=== PATIENT | male | born 1935 | race Caucasian/White ===

== ENCOUNTER 2020-03-28 10:51 | Inpatient (IN) | payer MEDICARE, SELFPAY ==
[2020-03-28 11:14] VITALS: BP 122/53; PULSE 76; RESP 18; TEMP 36.6; O2SAT 95; BMI 27.8
--- NOTE | 2020-03-28 11:22 | US_ITS ---
EXAMINATION: US VENOUS ULTRASOUND WITH DOPPLER LOWER EXTREMITY, LEFT CLINICAL INFORMATION: Left lower extremity edema, swelling. Assess for DVT. COMPARISON: Bilateral leg venous ultrasound 01/13/2019. TECHNIQUE: Ultrasound of the deep veins is performed from the hip to the calf with compression sonography and color and pulse Doppler assessment. Spectral analysis with color-flow imaging is performed. FINDINGS: There is normal venous compression and respiratory variation and augmented flow. The visualized common femoral vein, superficial femoral vein, profunda femoral vein, popliteal vein, and the trifurcation region shows no evidence of deep venous thrombosis. There is no popliteal fossa cyst. IMPRESSION: No DVT demonstrated in the left lower extremity.
--- NOTE | 2020-03-28 11:22 | ED_ITS ---
HPI - Extremity Problem General Chief complaint: Extremity Injury, Lower Stated complaint: LEG PAIN Time Seen by Provider: 03/28/20 11:21 Source: patient Mode of arrival: ambulatory Limitations: no limitations History of Present Illness MD Complaint: extremity pain and extremity swelling Onset (ago): day(s) (5) Pain Consistency: constant Location: left and lower extremity Quality: aching Radiation: none Relieving factors: nothing Exacerbating factors: nothing Associated symptoms: shortness of breath and rash Related Data Allergies Allergy/AdvReac Type Severity Reaction Status Date / Time bee pollen [BEE STINGS] Allergy Severe ANAPHYLAXIS Unverified 02/23/20 14:55 doxycycline [DOXYCYCLINE] Allergy Unknown ? ALLERGY Unverified 02/23/20 14:55 PER MAINTENANCE DEPARTMENT MANAGER [place]ARDINES Allergy Mild ITCHING Uncoded 02/23/20 14:55 bee venom Allergy Unknown unspecified Uncoded 09/15/19 00:00 sardines Allergy Unknown itching Uncoded 09/15/19 00:00 Review of Systems Review of Systems: Constitutional : No Fever, No Chills ENT/Mouth : No Ear Pain, No Hoarseness, No sore throat Eyes: No Eye Pain, No Swelling, No Redness, No Foreign Body Cardiovascular : No Chest Pain, positive SOB, positive LE edema Respiratory : No Cough, No Dyspnea Gastrointestinal : No Nausea, No Vomiting, No Diarrhea, No abdominal Pain Genitourinary : No Dysuria, No Hematuria Musculoskeletal : positive joint pain, No Myalgias, No Joint Swelling Skin : No Skin lacerations, positive rash Neuro : No Weakness, No Numbness, No Loss of Consciousness, No Dizziness, No Headache Psych : No Anxiety/Panic, No Depression Heme/Lymph: no easy bruising, no Lymphadenopathy Endocrine : No Polyuria, No Polydipsia All other systems reviewed and are negative [facility] Past Medical History Medical History (Updated 03/28/20 @ 13:32 by Liz Mcmanus DO) Afib Alcoholic cardiomyopathy BPH (benign prostatic hyperplasia) COPD (chronic obstructive pulmonary disease) Diabetes Hyperlipidemia Prostate cancer PVD (peripheral vascular disease) Surgical History (Updated 03/28/20 @ 11:54 by Liz Mcmanus DO) Hx of BKA Social History Social History Alcohol intake: never Smoking Status: Never smoker Use of substances other than those prescribed or required for medical reasons: No Advance Directives: Yes Advance Directives Information Provided: Yes Advance Directives on File: No Physical Exam Vital Signs: Vital Signs: Vital Signs Temp Pulse Resp BP Pulse Ox 03/28/20 11:14 97.9 F 76 18 122/53 L 95 Body Mass Index 27.8 Appearance: Alert. Oriented X3. No acute distress. Eyes: Pupils equal, round and reactive to light. ENT: Pharynx normal. Neck: Normal inspection. Neck supple. CVS: Normal heart rate and rhythm. Pulses decreased Respiratory: No respiratory distress. Breath sounds decreased bases Abdomen: Soft and nontender. Skin: Skin warm and dry. Normal skin color. Normal skin turgor. Extremities: + LLE lower extremity edema 2+ with mild warmth and erythema. mild calf ttp Neuro: Oriented X 3. No motor deficit. No sensory deficit. Course Course Course Narrative: repeat IV morphine for pain, planned admit added on vancomycin for cellulitis MDM - Extremity (Nontraumatic) MDM Narrative Medical decision making narrative: 84 yo male with hx of CHF, HPL, DM s/p R BKA and afib on eliquis here with LLE pain and swelling - will need labs, cultures, CXR for dyspnea, US to r/o DVT, empiric antibiotics for likely cellulitus Lab Data Result diagrams: 03/28/20 11:40 03/28/20 11:40 Labs: Lab Results 03/28/20 03/28/20 03/28/20 Range/Units 11:39 11:39 11:40 WBC 6.3 (4.8-10.8) X10*3/uL RBC 2.99 L (4.60-5.80) X10*6/uL Hgb 8.3 L (14.0-18.0) g/dl Hct 27.0 L (42-52) % MCV 90.3 (80-98) fL MCH 27.8 (27.0-33.0) pg MCHC 30.7 L (31.0-36.0) g/dl RDW 14.3 (11.0-16.0) % Plt Count 181 (160-400) X10*3/uL MPV 9.9 (9.4-12.4) fL Immature Gran % (Auto) 0.3 (0.0-0.4) % Neut % (Auto) 72.9 (45-73) % Lymph % (Auto) 11.5 L (20-40) % [place] % (Auto) 10.3 (2-11) % Eos % (Auto) 4.7 H (0-4) % Baso % (Auto) 0.3 (0-2) % Lymph # (Auto) 0.7 L (1.2-4.9) X10*3/uL [place] # (Auto) 0.7 (0.1-1.2) X10*3/uL Eos # (Auto) 0.3 (0.0-0.4) X10*3/uL Baso # (Auto) 0.0 (0.0-0.2) X10*3/uL Abs Immat Gran (auto) 0.02 (0.00-0.03) X10*3/uL Absolute Neuts (auto) 4.6 (2.0-8.3) X10*3/uL Absolute Nucleated RBC 0.000 (0.0-0.012) X10*3/uL Nucleated RBC % (auto) 0.0 (0.0-0.2) /100WBC PT (10.8-13.0) SEC INR (0.9-1.1) APTT (24.1-38.0) SEC Sodium (135-145) mmol/L Potassium (3.3-5.1) mmol/l Chloride (96-108) mmol/L Carbon Dioxide (22-29) mmol/L Anion Gap (12-20) BUN (9-16) mg/dL Creatinine (0.5-1.4) mg/dL Estim Creat Clear Calc Estimated GFR Random Glucose (60-115) mg/dL Lactic Acid (0.5-2.0) mmol/L Calcium (8.4-10.2) mg/dL Magnesium 2.1 (1.6-2.6) mg/dL Total Bilirubin 0.6 (0.0-1.0) mg/dL Direct Bilirubin 0.3 (0.0-0.5) mg/dL AST 15 (5-37) U/L ALT 10 (0-40) U/L Alkaline Phosphatase 55 (39-117) U/L B-Natriuretic Peptide 90 (<100) pg/mL Total Protein 6.8 (6.5-8.0) g/dL Albumin 3.8 (3.5-5.0) g/dL 03/28/20 03/28/20 03/28/20 Range/Units 11:40 11:40 11:40 WBC (4.8-10.8) X10*3/uL RBC (4.60-5.80) X10*6/uL Hgb (14.0-18.0) g/dl Hct (42-52) % MCV (80-98) fL MCH (27.0-33.0) pg MCHC (31.0-36.0) g/dl RDW (11.0-16.0) % Plt Count (160-400) X10*3/uL MPV (9.4-12.4) fL Immature Gran % (Auto) (0.0-0.4) % Neut % (Auto) (45-73) % Lymph % (Auto) (20-40) % [place] % (Auto) (2-11) % Eos % (Auto) (0-4) % Baso % (Auto) (0-2) % Lymph # (Auto) (1.2-4.9) X10*3/uL [place] # (Auto) (0.1-1.2) X10*3/uL Eos # (Auto) (0.0-0.4) X10*3/uL Baso # (Auto) (0.0-0.2) X10*3/uL Abs Immat Gran (auto) (0.00-0.03) X10*3/uL Absolute Neuts (auto) (2.0-8.3) X10*3/uL Absolute Nucleated RBC (0.0-0.012) X10*3/uL Nucleated RBC % (auto) (0.0-0.2) /100WBC PT 23.1 H (10.8-13.0) SEC INR 1.9 H (0.9-1.1) APTT 46.6 H (24.1-38.0) SEC Sodium 140 (135-145) mmol/L Potassium 4.3 (3.3-5.1) mmol/l Chloride 101 (96-108) mmol/L Carbon Dioxide 31 H (22-29) mmol/L Anion Gap 12 (12-20) BUN 36 H (9-16) mg/dL Creatinine 1.50 H (0.5-1.4) mg/dL Estim Creat Clear Calc 41.6 Estimated GFR 45 Random Glucose 178 H (60-115) mg/dL Lactic Acid 1.3 (0.5-2.0) mmol/L Calcium 8.8 (8.4-10.2) mg/dL Magnesium (1.6-2.6) mg/dL Total Bilirubin (0.0-1.0) mg/dL Direct Bilirubin (0.0-0.5) mg/dL AST (5-37) U/L ALT (0-40) U/L Alkaline Phosphatase (39-117) U/L B-Natriuretic Peptide (<100) pg/mL Total Protein (6.5-8.0) g/dL Albumin (3.5-5.0) g/dL Discharge Plan Discharge Clinical Impression: Acute renal insufficiency Cellulitis Qualifiers: Site of cellulitis: extremity Site of cellulitis of extremity: lower extremity Laterality: left Qualified Code(s): L03.116 - Cellulitis of left lower limb Patient Disposition: Admitted As Inpatient
--- NOTE | 2020-03-28 11:22 | ECG_ITS ---
Test Reason : CP Blood Pressure : / mmHG Vent. Rate : 073 BPM Atrial Rate : 042 BPM P-R Int : 000 ms QRS Dur : 106 ms QT Int : 420 ms P-R-T Axes : 000 046 040 degrees QTc Int : 462 ms Atrial fibrillation RSR' or QR pattern in V1 suggests right ventricular conduction delay Low voltage QRS limb leads Abnormal ECG When compared with ECG of 04-JUL-2019 11:43, No significant change was found Referred By: Liz Mcmanus Electronically Signed By:ANTONIO NOYOLA MD
--- NOTE | 2020-03-28 11:23 | XR_ITS ---
EXAMINATION: XR CHEST CLINICAL INFORMATION: Dyspnea COMPARISON: January 13, [address] scan of December 23, 2018 TECHNIQUE: AP portable view of the chest was obtained. FINDINGS: There is no evidence of acute parenchymal disease, pneumothorax, or significant pleural effusion. There is noted be some interstitial scarring present bilaterally. The cardiopericardial silhouette is enlarged. No evidence of pulmonary edema. IMPRESSION: No acute disease. Cardiomegaly without pulmonary edema.
--- NOTE | 2020-03-28 11:42 | PC.NURSE ---
iv established, blood labs obtained and sent. medicated per emar. cxr completed.
[2020-03-28 11:46] LABS: MANUAL DIFF FLAG NO
[2020-03-28 11:51] LABS: Basophils Percent Auto 0.3 % (0-2); Eosinophils Absolute Auto 0.3 X10*3/uL (0.0-0.4); Eosinophils Percent Auto 4.7 % (0-4); Hemoglobin 8.3 g/dl (14.0-18.0); Imm Gran Abs Auto 0.02 X10*3/uL (0.00-0.03); Imm Gran Pct Auto 0.3 % (0.0-0.4); Lymphocytes Absolute Auto 0.7 X10*3/uL (1.2-4.9); Lymphocytes Percent Auto 11.5 % (20-40); Mean Corpuscular HGB Conc 30.7 g/dl (31.0-36.0); Mean Corpuscular Hemoglobin 27.8 pg (27.0-33.0); Mean Corpuscular Volume 90.3 fL (80-98); Mean Platelet Volume 9.9 fL (9.4-12.4); Monocytes Absolute Auto 0.7 X10*3/uL (0.1-1.2); Monocytes Percent Auto 10.3 % (2-11); Neutrophils Absolute Auto 4.6 X10*3/uL (2.0-8.3); Neutrophils Percent Auto 72.9 % (45-73); Platelet Count 181 X10*3/uL (160-400); Red Blood Count 2.99 X10*6/uL (4.60-5.80); Red Cell Distribution Width 14.3 % (11.0-16.0); White Blood Count 6.3 X10*3/uL (4.8-10.8)
[2020-03-28] MEDS: oxyCODONE HCl Immed Release 5 MG TABLET PO (11:54)
[2020-03-28 12:00] LABS: INTERNATIONAL NORM RATIO 1.9 (0.9-1.1); Prothrombin Time 23.1 SEC (10.8-13.0)
[2020-03-28 12:03] LABS: Partial Thromboplastin Time 46.6 SEC (24.1-38.0)
[2020-03-28 12:15] LABS: Lactic Acid 1.3 mmol/L (0.5-2.0)
[2020-03-28 12:17] LABS: Anion Gap 12 (12-20); Blood Urea Nitrogen 36 mg/dL (9-16); Calcium 8.8 mg/dL (8.4-10.2); Carbon Dioxide 31 mmol/L (22-29); Chloride 101 mmol/L (96-108); Creatinine Clr Calc Pharmacy 41.6; Estimated Glomerular Filt Rate 45; Glucose Random 178 mg/dL (60-115); Potassium 4.3 mmol/l (3.3-5.1); Sodium 140 mmol/L (135-145)
[2020-03-28 12:18] LABS: Alanine Aminotransferase 10 U/L (0-40); Albumin Level 3.8 g/dL (3.5-5.0); Alkaline Phosphatase 55 U/L (39-117); Aspartate Amino Transferase 15 U/L (5-37); Bilirubin Direct 0.3 mg/dL (0.0-0.5); Bilirubin Total 0.6 mg/dL (0.0-1.0); Magnesium 2.1 mg/dL (1.6-2.6); Total Protein 6.8 g/dL (6.5-8.0)
[2020-03-28 12:25] LABS: B Type Natriuretic Peptide 90 pg/mL (<100)
[2020-03-28] MEDS: Piperacillin Sodium/Tazobactam 3.375 GM in 0.9 % Sodium Chloride 50 ML IV (12:27)
[2020-03-28] MEDS: vancomycin HCL 1,000 MG in 0.9 % Sodium Chloride 250 ML 270 MG IV (13:42)
[2020-03-28] MEDS: Morphine Sulfate 4 MG/ML CARTRIDGE IVPUSH (13:42)
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
[2020-03-28 19:22] VITALS: BP 133/63; PULSE 73; RESP 18; O2SAT 96
--- NOTE | 2020-03-28 19:26 | PC.NURSE ---
CALLED FLOOR TO GIVE REPORT ON PATIENT BEING ADMITTED TO MED/SURG BED 373. PATIENT BEING ADMITTED WITH CELLULITIS
[2020-03-28 20:56] VITALS: BP 142/68; PULSE 94; RESP 19; TEMP 36.7; O2SAT 90
[2020-03-28 21:14] LABS: SARS COV2 PCR INHOUSE NEGATIVE (Negative)
[2020-03-28 21:50] LABS: Glucose, Whole Blood 135 mg/dL (60-115)
[2020-03-28 23:44] VITALS: BP 141/75; PULSE 88; RESP 20; TEMP 36.9; O2SAT 96
[2020-03-28] MEDS: Piperacillin Sodium/Tazobactam 2.25 GM in 0.9 % Sodium Chloride 50 ML IV (23:44)
[2020-03-28] MEDS: 0.9 % Sodium Chloride 1,000 ML 100 ML IVCONT (23:44)
[2020-03-28] MEDS: Ascorbic Acid 500 MG TABLET PO (23:49)
[2020-03-28] MEDS: Apixaban 5 MG TABLET PO (23:49)
[2020-03-28] MEDS: FLUoxetine HCl 20 MG CAPSULE PO (23:50)
[2020-03-28] MEDS: Gabapentin 600 MG TABLET PO (23:50)
[2020-03-28] MEDS: risperiDONE 0.25 MG TABLET PO (23:50)
[2020-03-28 23:51] VITALS: BP 141/75; PULSE 90
[2020-03-28] MEDS: Tamsulosin HCL 0.4 MG CAPSULE PO (23:51)
[2020-03-28] MEDS: amLODIPine Besylate 2.5 MG TABLET PO (23:51)
[2020-03-28] MEDS: atenoloL 25 MG TABLET PO (23:51)
[2020-03-28] MEDS: Atorvastatin Calcium 20 MG TABLET PO (23:52)
[2020-03-28] MEDS: Morphine Sulfate 2 MG/ML CARTRIDGE 1 MG IVPUSH (23:58)
[2020-03-29 03:53] VITALS: BP 136/77; PULSE 78; RESP 18; TEMP 36.8; O2SAT 99
[2020-03-29] MEDS: Piperacillin Sodium/Tazobactam 2.25 GM in 0.9 % Sodium Chloride 50 ML IV ×4 (05:21→23:56)
[2020-03-29 06:34] LABS: Hematocrit 26.9 % (42-52); Hemoglobin 8.1 g/dl (14.0-18.0); Mean Corpuscular HGB Conc 30.1 g/dl (31.0-36.0); Mean Corpuscular Hemoglobin 27.5 pg (27.0-33.0); Mean Corpuscular Volume 91.2 fL (80-98); Mean Platelet Volume 9.8 fL (9.4-12.4); Platelet Count 199 X10*3/uL (160-400); Red Blood Count 2.95 X10*6/uL (4.60-5.80); Red Cell Distribution Width 14.3 % (11.0-16.0); White Blood Count 6.4 X10*3/uL (4.8-10.8)
[2020-03-29 06:59] LABS: Anion Gap 14 (12-20); Blood Urea Nitrogen 35 mg/dL (9-16); Calcium 8.6 mg/dL (8.4-10.2); Carbon Dioxide 30 mmol/L (22-29); Chloride 104 mmol/L (96-108); Creatinine Clr Calc Pharmacy 44.6; Estimated Glomerular Filt Rate 48; Glucose Random 118 mg/dL (60-115); Potassium 5.1 mmol/l (3.3-5.1); Sodium 143 mmol/L (135-145)
[2020-03-29 07:09] VITALS: BP 136/84; PULSE 75; RESP 18; TEMP 36.9; O2SAT 97
[2020-03-29 07:26] LABS: Glucose, Whole Blood 114 mg/dL (60-115)
[2020-03-29] MEDS: amLODIPine Besylate 2.5 MG TABLET PO (09:21)
[2020-03-29] MEDS: Atorvastatin Calcium 20 MG TABLET PO (09:22)
[2020-03-29] MEDS: Apixaban 5 MG TABLET PO ×2 (09:22→20:51)
[2020-03-29] MEDS: FLUoxetine HCl 20 MG CAPSULE PO (09:22)
[2020-03-29] MEDS: Ascorbic Acid 500 MG TABLET PO ×2 (09:22→20:51)
[2020-03-29] MEDS: atenoloL 25 MG TABLET PO (09:22)
[2020-03-29 10:59] VITALS: BP 133/61; PULSE 68; RESP 18; TEMP 36.7; O2SAT 96
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
[2020-03-29 11:18] LABS: Glucose, Whole Blood 151 mg/dL (60-115)
[2020-03-29] MEDS: Insulin Lispro 100 UNIT/ML 3 ML VIAL SUBCUT (11:56)
--- NOTE | 2020-03-29 13:01 | HO.PM.IMPN ---
Subjective Subjective Date of Service: 03/29/20 Interval History: patient seen and examined at bedside patient reported pain in his leg Constitutional Constitutional: Reports weakness Respiratory Respiratory: Reports no additional respiratory complaints Gastrointestinal Gastrointestinal: Denies vomiting Neurologic Neurologic: Reports weakness Physical Exam Vital Signs: Vital Signs: Vital Signs Temp Pulse Resp BP Pulse Ox 03/29/20 10:59 98.1 F 68 18 133/61 96 03/29/20 07:09 98.4 F 75 18 136/84 97 03/29/20 03:53 98.3 F 78 18 136/77 99 03/28/20 23:51 90 141/75 H 03/28/20 23:44 98.5 F 88 20 141/75 H 96 03/28/20 20:56 98.0 F 94 19 142/68 H 90 L 03/28/20 19:22 73 18 133/63 96 Body Mass Index 27.8 Const: General: no acute distress Orientation/consciousness: patient oriented x3 Neck: Neck: Yes normal visual inspection Resp: Effort & Inspection: normal respiratory effort Cardio: Jugular venous distension: no JVD Skin: Lesions: other ( left lower extremity erythema and swelling with underlying stasis dermati) Neuro: General: patient oriented x3 Objective Data Current Medications Generic Name Dose Route Start Last Admin Trade Name Freq PRN Reason Stop Dose Admin Albuterol/Ipratropium 3 ml 03/28/20 20:59 Albuterol/Iprat 2.5/0.5mg 3 Ml Ampul.Neb INHALE RQ6H PRN Shortness of Breath/Wheezing Amlodipine Besylate 2.5 mg 03/28/20 20:59 03/29/20 09:21 Amlodipine Besylate 2.5 Mg Tablet PO 2.5 mg DAILY BREE Administration Protocol Apixaban 5 mg 03/28/20 21:00 03/29/20 09:22 Apixaban 5 Mg Tablet PO 5 mg BID BREE Administration Ascorbic Acid 500 mg 03/28/20 21:00 03/29/20 09:22 Ascorbic Acid 500 Mg Tablet PO 500 mg BID BREE Administration Atenolol 25 mg 03/28/20 20:59 03/29/20 09:22 Atenolol 25 Mg Tablet PO 25 mg DAILY BREE Administration Protocol Atorvastatin Calcium 20 mg 03/28/20 20:59 03/29/20 09:22 Atorvastatin Calcium 20 Mg Tablet PO 20 mg DAILY BREE Administration Fluoxetine HCl 20 mg 03/28/20 20:59 03/29/20 09:22 Fluoxetine Hcl 20 Mg Capsule PO 20 mg DAILY BREE Administration Gabapentin 600 mg 03/28/20 21:00 03/28/20 23:50 Gabapentin 600 Mg Tablet PO 600 mg BEDTIME BREE Administration Piperacillin Sod/Tazobactam 50 mls @ 100 mls/hr 03/29/20 06:00 03/29/20 12:35 Sod 2.25 gm/ Sodium Chloride IV Infused Q6H BREE Infusion Insulin Human Lispro 0 unit 03/28/20 21:00 03/29/20 11:56 Insulin Lispro 100 Unit/Ml 3 Ml Vial SUBCUT 2 unit QIDACHS BREE Administration Protocol Pharmacy Consult 1 each 03/28/20 16:58 Consult Rx Perform Med Rec MISCELLANE ONCE PRN Consult order Risperidone 0.25 mg 03/28/20 21:00 03/28/20 23:50 Risperidone 0.25 Mg Tablet PO 0.25 mg BEDTIME BREE Administration Sodium Chloride 3 ml 03/29/20 00:00 03/29/20 09:24 0.9 % Sodium Chloride Flush 3 Ml Syringe IVFLUSH Not Given QSHIFT BREE Tamsulosin HCl 0.4 mg 03/28/20 21:00 03/28/20 23:51 Tamsulosin Hcl 0.4 Mg Capsule PO 0.4 mg BEDTIME BREE Administration Labs CBC & Chem 7: 03/29/20 06:07 03/29/20 06:07 Assessment and Plan (1) Cellulitis: Status: Acute (2) Acute renal insufficiency: Status: Acute Assessment and Plan: 84-year-old male presented with worsening left lower extremity swelling and erythema , in the ER found to have creatinine 1.6 baseline around 1 admitted for cellulitis and acute kidney injury Cellulitis of left lower extremity with underlying stasis dermatitis received 1 dose of Vanco and Zosyn will continue IV Zosyn follow-up blood culture acute kidney injury creatinine 1.5 with baseline around 1 hold lasixs monitor kidney function Diabetes hold metformin Insulin sliding scale monitor blood glucose Chronic CHF with recovered ejection fraction appears euvolemic hold Lasix continue atenolol BPH continueFlomax Hypertension continueAmlodipine, atenolol AFib Atenolol continue Eliquis Hyperlipidemia Statin COPD Nebs as needed DVT prophylaxis Eliquis
--- NOTE | 2020-03-29 15:14 | MHC.CM.PN ---
nurse director of casework services note recoived a call back valeriano smith at [facility] at home, she confirmed that patient was reciving 37.5 hours per week, she reported sdhe daniel have the blowing engineer omn stand by for tomorrow and schedued for weekend and we will recconnect tomorrow with more finalzed plan for discharge , she reported that he has a pill boc reminder and is capable f serf administwring his pills, she aso reported that the blowing engineer are the ones who were encouraging patient to call the doctor about his foot (the pain redness and swelling ) and they called his family . she requesed if possible if the [facility] community nurse could come in and assesse him once he is home .
[2020-03-29 15:40] VITALS: BP 134/66; PULSE 75; RESP 18; TEMP 36.6; O2SAT 95
[2020-03-29 16:39] LABS: Glucose, Whole Blood 108 mg/dL (60-115)
[2020-03-29] MEDS: 0.9 % Sodium Chloride Flush 3 ML SYRINGE IVFLUSH ×2 (17:48→20:51)
[2020-03-29 19:49] VITALS: BP 154/67; PULSE 75; RESP 18; TEMP 36.2; O2SAT 97
[2020-03-29] MEDS: risperiDONE 0.25 MG TABLET PO (20:51)
[2020-03-29] MEDS: Gabapentin 600 MG TABLET PO (20:51)
[2020-03-29] MEDS: Tamsulosin HCL 0.4 MG CAPSULE PO (20:51)
[2020-03-29 20:54] LABS: Glucose, Whole Blood 136 mg/dL (60-115)
[2020-03-29 23:01] VITALS: BP 137/64; PULSE 70; RESP 18; TEMP 36.2; O2SAT 97
[2020-03-30] VITALS (8 sets, daily range): BP systolic 123–174; BP diastolic 62–81; PULSE 72–86; RESP 17–19; TEMP 36.2–36.9; O2SAT 91–95
[2020-03-30] MEDS: Morphine Sulfate 2 MG/ML CARTRIDGE 1 MG IVPUSH ×2 (00:34→09:49)
[2020-03-30] MEDS: Piperacillin Sodium/Tazobactam 2.25 GM in 0.9 % Sodium Chloride 50 ML IV ×3 (05:48→19:14)
[2020-03-30] MEDS: Apixaban 5 MG TABLET PO ×2 (09:17→20:52)
[2020-03-30] MEDS: FLUoxetine HCl 20 MG CAPSULE PO (09:17)
[2020-03-30] MEDS: Atorvastatin Calcium 20 MG TABLET PO (09:17)
[2020-03-30] MEDS: 0.9 % Sodium Chloride Flush 3 ML SYRINGE IVFLUSH ×3 (09:17→20:54)
[2020-03-30] MEDS: Ascorbic Acid 500 MG TABLET PO ×2 (09:17→20:52)
[2020-03-30] MEDS: amLODIPine Besylate 2.5 MG TABLET PO (09:18)
[2020-03-30] MEDS: atenoloL 25 MG TABLET PO (09:18)
[2020-03-30 09:57] LABS: Glucose, Whole Blood 99 mg/dL (60-115)
[2020-03-30 11:32] LABS: Glucose, Whole Blood 142 mg/dL (60-115)
[2020-03-30 11:34] LABS: Anion Gap 12 (12-20); Blood Urea Nitrogen 36 mg/dL (9-16); Calcium 8.6 mg/dL (8.4-10.2); Carbon Dioxide 31 mmol/L (22-29); Chloride 104 mmol/L (96-108); Creatinine Clr Calc Pharmacy 45.9; Estimated Glomerular Filt Rate 50; Glucose Random 174 mg/dL (60-115); Potassium 4.5 mmol/l (3.3-5.1); Sodium 142 mmol/L (135-145)
[2020-03-30] MEDS: Albuterol/Iprat 2.5/0.5MG 3 ML AMPUL.NEB INHALE (12:44)
--- NOTE | 2020-03-30 12:44 | HO.PM.IMPN ---
Subjective Subjective Date of Service: 03/30/20 Interval History: patient seen and examined at bedside patient reported pain in his leg Physical Exam Vital Signs: Vital Signs: Vital Signs Temp Pulse Resp BP Pulse Ox 03/30/20 11:27 97.3 F 78 19 144/81 H 95 03/30/20 09:49 18 03/30/20 09:18 80 123/65 03/30/20 07:46 98.0 F 86 17 143/69 H 94 03/30/20 02:50 97.3 F 77 18 130/62 92 03/29/20 23:01 97.1 F 70 18 137/64 97 03/29/20 19:49 97.1 F 75 18 154/67 H 97 03/29/20 15:40 97.8 F 75 18 134/66 95 Body Mass Index 27.8 Const: General: no acute distress Orientation/consciousness: patient oriented x3 Neck: Neck: Yes normal visual inspection Resp: Effort & Inspection: normal respiratory effort Cardio: Jugular venous distension: no JVD Skin: Lesions: other ( left lower extremity erythema and swelling with underlying stasis dermati) Neuro: General: patient oriented x3 Objective Data Current Medications Generic Name Dose Route Start Last Admin Trade Name Freq PRN Reason Stop Dose Admin Albuterol/Ipratropium 3 ml 03/28/20 20:59 Albuterol/Iprat 2.5/0.5mg 3 Ml Ampul.Neb INHALE RQ6H PRN Shortness of Breath/Wheezing Amlodipine Besylate 2.5 mg 03/28/20 20:59 03/30/20 09:18 Amlodipine Besylate 2.5 Mg Tablet PO 2.5 mg DAILY BREE Administration Protocol Apixaban 5 mg 03/28/20 21:00 03/30/20 09:17 Apixaban 5 Mg Tablet PO 5 mg BID BREE Administration Ascorbic Acid 500 mg 03/28/20 21:00 03/30/20 09:17 Ascorbic Acid 500 Mg Tablet PO 500 mg BID BREE Administration Atenolol 25 mg 03/28/20 20:59 03/30/20 09:18 Atenolol 25 Mg Tablet PO 25 mg DAILY BREE Administration Protocol Atorvastatin Calcium 20 mg 03/28/20 20:59 03/30/20 09:17 Atorvastatin Calcium 20 Mg Tablet PO 20 mg DAILY BREE Administration Fluoxetine HCl 20 mg 03/28/20 20:59 03/30/20 09:17 Fluoxetine Hcl 20 Mg Capsule PO 20 mg DAILY BREE Administration Gabapentin 600 mg 03/28/20 21:00 03/29/20 20:51 Gabapentin 600 Mg Tablet PO 600 mg BEDTIME BREE Administration Piperacillin Sod/Tazobactam 50 mls @ 100 mls/hr 03/29/20 06:00 03/30/20 12:10 Sod 2.25 gm/ Sodium Chloride IV 100 mls/hr Q6H BREE Administration Insulin Human Lispro 0 unit 03/28/20 21:00 03/30/20 12:04 Insulin Lispro 100 Unit/Ml 3 Ml Vial SUBCUT Not Given QIDACHS [facility] Protocol Pharmacy Consult 1 each 03/28/20 16:58 Consult Rx Perform Med Rec MISCELLANE ONCE PRN Consult order Risperidone 0.25 mg 03/28/20 21:00 03/29/20 20:51 Risperidone 0.25 Mg Tablet PO 0.25 mg BEDTIME BREE Administration Sodium Chloride 3 ml 03/29/20 00:00 03/30/20 09:17 0.9 % Sodium Chloride Flush 3 Ml Syringe IVFLUSH 3 ml QSHIFT BREE Administration Tamsulosin HCl 0.4 mg 03/28/20 21:00 03/29/20 20:51 Tamsulosin Hcl 0.4 Mg Capsule PO 0.4 mg BEDTIME BREE Administration Labs CBC & Chem 7: 03/29/20 06:07 03/30/20 10:13 Microbiology Microbiology Results: Microbiology 03/28/20 12:17 Blood - Venous Blood Culture - Preliminary No growth after 24 hours. 03/28/20 11:40 Blood - Venous Blood Culture - Preliminary No growth after 24 hours. Assessment and Plan (1) Cellulitis: Status: Acute (2) Acute renal insufficiency: Status: Acute Assessment and Plan: 84-year-old male presented with worsening left lower extremity swelling and erythema , in the ER found to have creatinine 1.6 baseline around 1 admitted for cellulitis and acute kidney injury Cellulitis of left lower extremity with underlying stasis dermatitis Still significant leg swelling and erythema little improved will continue IV Zosyn follow-up blood culture acute kidney injury improving creatinine trending down creatinine 1.5 with baseline around 1 hold lasixs monitor kidney function Diabetes hold metformin Insulin sliding scale monitor blood glucose Chronic CHF with recovered ejection fraction appears euvolemic hold Lasix continue atenolol BPH continueFlomax Hypertension continueAmlodipine, atenolol AFib Atenolol continue Eliquis Hyperlipidemia Statin COPD Nebs as needed DVT prophylaxis Eliquis
[2020-03-30 16:56] LABS: Glucose, Whole Blood 154 mg/dL (60-115)
[2020-03-30] MEDS: oxyCODONE HCl Immed Release 5 MG TABLET PO (17:00)
[2020-03-30] MEDS: risperiDONE 0.25 MG TABLET PO (20:52)
[2020-03-30] MEDS: Tamsulosin HCL 0.4 MG CAPSULE PO (20:52)
[2020-03-30] MEDS: Gabapentin 600 MG TABLET PO (20:52)
[2020-03-30 20:59] LABS: Glucose, Whole Blood 126 mg/dL (60-115)
[2020-03-31] MEDS: Piperacillin Sodium/Tazobactam 2.25 GM in 0.9 % Sodium Chloride 50 ML IV ×3 (00:02→12:48)
[2020-03-31 04:00] VITALS: BP 157/89; PULSE 84; RESP 20; TEMP 36; O2SAT 93
[2020-03-31] MEDS: oxyCODONE HCl Immed Release 5 MG TABLET PO ×2 (05:28→16:12)
[2020-03-31 07:10] VITALS: BP 146/70; PULSE 87; RESP 19; TEMP 36.6; O2SAT 91
[2020-03-31] MEDS: FLUoxetine HCl 20 MG CAPSULE PO (09:16)
[2020-03-31] MEDS: Atorvastatin Calcium 20 MG TABLET PO (09:16)
[2020-03-31] MEDS: amLODIPine Besylate 2.5 MG TABLET PO (09:16)
[2020-03-31] MEDS: Ascorbic Acid 500 MG TABLET PO (09:16)
[2020-03-31] MEDS: Apixaban 5 MG TABLET PO (09:16)
[2020-03-31] MEDS: atenoloL 25 MG TABLET PO (09:16)
[2020-03-31] MEDS: 0.9 % Sodium Chloride Flush 3 ML SYRINGE IVFLUSH ×2 (09:16→16:15)
[2020-03-31 11:34] LABS: Glucose, Whole Blood 122 mg/dL (60-115)
[2020-03-31 12:00] VITALS: BP 160/89; PULSE 82; RESP 18; TEMP 36.3; O2SAT 93
[2020-03-31 12:28] LABS: Glucose, Whole Blood 143 mg/dL (60-115)
[2020-03-31] MEDS: Furosemide 40 MG TABLET PO (12:47)
--- NOTE | 2020-03-31 12:54 | MHC.CM.PN ---
NURSE DOCK OPERATIONS SUPERVISOR NOTE PATIENT WILL BE DISCHARGED HOME TODAY , TRANSPORTED BY HIS FAMILY DAUGHTER TONO. 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
--- NOTE | 2020-03-31 14:11 | W.MHC.F2F ---
Service Date Service Date: 03/31/20 Reasons for Services Reason for shelter: medication management Reason for physical therapy: home safety and mobility Reason for occupational therapy: home safety and mobility and therapeutic exercises overseeing care: Leif Tolbert MD Homebound: Leaving the home is medically contraindicated at this time without the asist of a device and/or another person due th the listed conditions above and below. Homebound supporting statement: status post BKA , shortness of breath CHF COPD Certification: Based on the above findings, I certify that this patient is confined to the home and needs intermittent shelter care, physical therapy and/or speech therapy, or continues to need occupational therapy. The patient is under my care, and I have initiated the establishment of the plan of care. The patient will be followed by a physician who will periodically review the plan of care.
--- NOTE | 2020-03-31 14:12 | P.DS_ITS ---
DS: Providers Provider Date of admission: 03/28/20 16:55 Primary care physician: Alexa Barajas NP DS: Diagnosis Discharge Diagnosis (1) Cellulitis: Status: Acute (2) Acute renal insufficiency: Status: Acute DS: Summary Hospital Course Hospital Course: 84-year-old male admitted with cellulitis left lower extremity and acute kidney injury for cellulitis of left lower extremity patient was started on Zosyn, cultures were sent and remain negative, erythema and swelling improved slowly, patient was switched to p.o. Augmentin on discharge for acute kidney injury creatinine was 1.5 with baseline around 1, Lasix were held, creatinine trended down, Ranoldo I resolved, Lasix were resumed , Lasix dose was decreased from 80 mg to 60 mg daily patient was also found to be hypoxic likely secondary to CHF and COPD, patient was evaluated for home oxygen evaluation. patient qualified for 2 L of oxygen at rest, patient was discharged home on oxygen with visiting nurse and Lasix dose was decreased from 80 mg to 60 mg daily Time Spent with Patient Time attestation: Total time spent providing and/or coordinating discharge services: Physical Exam Vital Signs: Vital Signs: Vital Signs Temp Pulse Resp BP Pulse Ox 03/31/20 12:00 97.4 F 82 18 160/89 H 93 03/31/20 07:10 97.8 F 87 19 146/70 H 91 L 03/31/20 04:00 96.8 F 84 20 157/89 H 93 03/30/20 23:00 98.4 F 78 18 153/68 H 93 03/30/20 20:00 97.6 F 82 18 174/80 H 91 L 03/30/20 15:17 97.1 F 72 18 156/74 H 95 Body Mass Index 27.8 DS: Data Data Completed and Pending Labs on day of discharge: Labs from last 24 hours 03/31/20 03/31/20 03/30/20 12:00 07:22 20:42 POC Glucose 143 H 122 H 126 H 03/30/20 16:52 POC Glucose 154 H Preliminary micro results at discharge 03/28/20 12:17 Blood Culture - Preliminary Blood - Venous No growth after 48 hours. 03/28/20 11:40 Blood Culture - Preliminary Blood - Venous No growth after 48 hours. Discharge Plan Discharge Anticipated Discharge Date/Time: 03/31/20 11:54 Patient Disposition: Home Health Service Referrals: [facility] nurse [Other] ([facility] revenue cycle consultant nurse [phone] then press 6 ask for the revenue cycle consultant nurse they will be out to see you on thursdayapr 01 [facility] RESUMPTION OF YOUR EMPLOYEE COMMUNICATIONS COORDINATOR /YOUR TRUCKING MANAGER WILL BE AT YOUR HOUSE TONIGHT AROUND 6PM) Alexa Barajas KNOT BUMPER [Primary Care Provider] - Discharge Medications: New amoxicillin-pot clavulanate [Augmentin] 500-125 mg tablet 1 tab PO BID Qty: 10 RF: 0 Lac-Hydrin Five 5 % lotion 1 applic topical DAILY Qty: 226 RF: 0 Continued metformin 500 mg tablet 500 mg PO DAILY@1700 RF: 0 gabapentin 600 mg tablet 600 mg PO BEDTIME RF: 0 atorvastatin 20 mg tablet 20 mg PO QAM RF: 0 atenolol 25 mg tablet 25 mg PO QAM RF: 0 risperidone 0.25 mg tablet 0.25 mg PO BEDTIME RF: 0 amlodipine 2.5 mg tablet 2.5 mg PO QAM RF: 0 potassium chloride 20 mEq tablet,ER particles/crystals 20 meq PO BEDTIME RF: 0 ascorbic acid (vitamin C) [Vitamin C] 500 mg tablet 500 mg PO BID RF: 0 tamsulosin 0.4 mg capsule 0.4 mg PO BEDTIME RF: 0 ferrous sulfate 325 mg (65 mg iron) tablet 325 mg PO BID RF: 0 gabapentin 300 mg capsule 300 mg PO BID@0800,1400 RF: 0 albuterol sulfate 90 mcg/actuation HFA aerosol inhaler 2 puff PO Q4-6H PRN (Reason: Shortness Of Breath) RF: 0 fluoxetine 20 mg capsule 20 mg PO QAM RF: 0 cholecalciferol (vitamin D3) 25 mcg (1,000 unit) tablet 25 mcg PO QAM RF: 0 melatonin 5 mg tablet 5 mg PO BEDTIME RF: 0 Eliquis 5 mg tablet 5 mg PO BID RF: 0 Changed furosemide 40 mg tablet 60 mg PO QAM Qty: 0 RF: 0 Discharge Orders: Discharge Order (Routine); Ordered 03/31/20 Ordered By: Leif Tolbert Diet: low salt diet Activity on Discharge: As tolerated Visit Report Forms: Patient Portal Discharge page Care Plan Goals: see discharge instructions Health Concerns: see discharge instructions Plan of Treatment: see discharge instructions
[2020-03-31 14:38] VITALS: PULSE 92; PULSE 93; PULSE 94; O2SAT 88; O2SAT 91
--- NOTE | 2020-03-31 15:26 | MHC.CM.PN ---
nurse caretaker grounds note spoke with staff nurs3 , patient has home 2 test by respiratory theaerpist and qualifies for home xygen . i spoke with deborah curtis thearpist and she reporteed that she has sent in all necessary paperwrok for home ooooxygen cntinously, and is awaiting cLL BACK FROM [facility]. I INFORMED THE NURSE OF THIS AND THAT PATIENT WILL NOW NEED AMBULANCE BLS HOME WITH NEW OXYGERN NEEDS , VIA AL SCRIPT SENT REQUEST TO [facility] WITH [facility] BOOK AND HOLD FOR TODAY . I INFORMED THE STAFF NURSE IF WE CAN NOT GET [facility] TOP DELIVER THE HME XYGEN TODAY [PATIENT STEPHANY NEED TO STAY UNTIL TMPORROW ALSO CALLED HIS DAUGHTER JAVIER TO INFOMR HER OF THIS WELL THE POTASH FLAKER CCA NURSE
[2020-03-31 15:31] VITALS: BP 182/92; PULSE 85; RESP 18; TEMP 36.6; O2SAT 93
[2020-03-31 16:45] LABS: Glucose, Whole Blood 146 mg/dL (60-115)
== END 2020-03-31 17:50 | disposition home health service (06) | DRG 603 ==
LOC: HO.ED 16:25 → HO.S3 17:36
PROVIDERS: Admitting Provider Internal Medicine; Emergency Provider Emergency Medicine; PCP Nurse Practitioner Family; Visit Provider Internal Medicine
DX: L03.116 Cellulitis of left lower limb (principal); N17.9 Acute kidney failure, unspecified; I50.22 Chronic systolic (congestive) heart failure; I11.0 Hypertensive heart disease with heart failure; N40.0 Benign prostatic hyperplasia without lower urinary tract symptoms; Z89.511 Acquired absence of right leg below knee; E11.9 Type 2 diabetes mellitus without complications; J44.9 Chronic obstructive pulmonary disease, unspecified; R09.02 Hypoxemia; E78.5 Hyperlipidemia, unspecified; Z20.828 Contact with and (suspected) exposure to other viral communicable diseases; Z87.891 Personal history of nicotine dependence; Z79.01 Long term (current) use of anticoagulants; Z79.84 Long term (current) use of oral hypoglycemic drugs; Z79.899 Other long term (current) drug therapy
CPT/HCPCS: 36415; 71045; 80048; 80076; 82947; 83605; 83735; 83880; 85025; 85027; 85610; 85730; 87040; 87635; 93005; 93971; 94640; 96365; 96367; 96375; 99284; 99285; J2270

== ENCOUNTER → 2020-04-03 13:04 | Outpatient (BNVA) | payer MEDICARE, SELFPAY | PROVIDERS: PCP Nurse Practitioner Family; Referring Provider Nurse Practitioner Family; Visit Provider Surgery Vascular Surgery | DX: I73.9 Peripheral vascular disease, unspecified (principal); L03.116 Cellulitis of left lower limb; Z89.511 Acquired absence of right leg below knee | CPT/HCPCS: 99213 ==

== ENCOUNTER 2020-04-10 14:55 | Outpatient (REF) | payer MEDICARE, SELFPAY ==
--- NOTE | 2020-04-10 15:05 | US_ITS ---
EXAMINATION: NONINVASIVE ASSESSMENT OF THE ARTERIES OF THE LEFT LOWER EXTREMITIES WITH PVR EXAM AND BILATERAL LOWER EXTREMITY DUPLEX CLINICAL INFORMATION: Peripheral vascular disease TECHNIQUE: Ankle pulse volume recordings, ankle pressure measurements and ankle brachial indices were obtained of the lower extremity arterial system bilaterally in addition to duplex Doppler techniques with wave form analysis and measurement of velocities in the common femoral, profunda femoral, superficial femoral, popliteal and tibial arteries. The study was performed only at rest. COMPARISON: Previous exams most recent February 2019 FINDINGS: a) AT REST: LEFT LE. The left ankle-brachial index is: 0.55 2. Left ankle pressure: Not performed 3. Left ankle PVR waveform: Not performed 4. Left direct duplex Doppler findings: There is evidence of diffuse atherosclerotic disease with vessel wall calcification. The common femoral artery appears patent. There is a stenosis at the origin of the profunda. There is diffuse narrowing of the SFA with segmental stenoses. The popliteal and posterior tibial arteries are difficult to visualize but appear narrowed. * Common femoral artery: 147 cm/s, Diastolic flow reversal: Yes * Superficial femoral artery (proximal, mid, distal): 38, 21 and 80 cm/s, Diastolic flow reversal: No * Popliteal artery: 51 cm/s, Diastolic flow reversal: No * Posterior tibial artery: 43 cm/s, Diastolic flow reversal: No Profunda femoris artery: 220 cm/s. Diastolic flow reversal: No JULIO Reference: * >0.97-1.25 = normal - no significant arterial disease * 0.75-0.96 = mild peripheral arterial disease * 0.5-0.74 = moderate peripheral arterial disease * <0.50 = severe peripheral arterial disease US/US arterial duplex LE IMPRESSION: The left JULIO is 0.55 suggestive of moderate obstructive peripheral atherosclerotic disease. This is decreased from 0.85 on most recent exam February 2019. Stenosis at the origin of the profunda and increased peak systolic velocity. Diffuse SFA disease with decreased peak systolic velocities. The posterior tibial and peroneal arteries are difficult to visualize on grayscale imaging but demonstrate abnormal waveforms.
== END 2020-04-10 14:56 | disposition home or self-care (01) ==
LOC: HO.US 14:55
PROVIDERS: Visit Provider Surgery Vascular Surgery
DX: I73.9 Peripheral vascular disease, unspecified (principal)
CPT/HCPCS: 93923; 93926

== ENCOUNTER → 2020-04-12 09:36 | Outpatient (BNVA) | payer MEDICARE, SELFPAY | PROVIDERS: PCP Nurse Practitioner Family; Visit Provider Surgery Vascular Surgery | DX: I73.9 Peripheral vascular disease, unspecified (principal); L03.116 Cellulitis of left lower limb | CPT/HCPCS: 99212 ==

== ENCOUNTER 2020-04-24 10:03 | Emergency (ER) | payer MEDICARE, SELFPAY ==
[2020-04-24 10:29] VITALS: BP 158/79; PULSE 60; RESP 18; TEMP 36.4; O2SAT 96; BMI 25.8
--- NOTE | 2020-04-24 10:41 | US_ITS ---
EXAMINATION: US VENOUS ULTRASOUND WITH DOPPLER LOWER EXTREMITY, LEFT CLINICAL INFORMATION: Swelling and redness COMPARISON: 03/28/2020 TECHNIQUE: Ultrasound of the deep veins is performed from the hip to the calf with compression sonography and color and pulse Doppler assessment. Spectral analysis with color-flow imaging is performed. FINDINGS: There is normal venous compression and respiratory variation and augmented flow. The visualized common femoral vein, superficial femoral vein, profunda femoral vein, popliteal vein, and the trifurcation region shows no evidence of deep venous thrombosis. There is no significant popliteal fossa cyst. If the patient's symptoms persist, followup ultrasound in 5 days 7 days might be of value to exclude proximal propagation from a non-visualized calf vein. US/US venous duplex LE LT IMPRESSION: No DVT demonstrated in the left lower extremity.
--- NOTE | 2020-04-24 11:05 | PC.NURSE ---
currently getting bedside ultrasound
[2020-04-24 11:55] LABS: MANUAL DIFF FLAG NO
[2020-04-24 12:00] VITALS: BP 163/79; PULSE 62; RESP 18; TEMP 36.8; O2SAT 96
[2020-04-24 12:00] LABS: Basophils Percent Auto 0.6 % (0-2); Eosinophils Absolute Auto 0.4 X10*3/uL (0.0-0.4); Eosinophils Percent Auto 7.8 % (0-4); Hemoglobin 10.5 g/dl (14.0-18.0); Imm Gran Abs Auto 0.02 X10*3/uL (0.00-0.03); Imm Gran Pct Auto 0.4 % (0.0-0.4); Lymphocytes Absolute Auto 0.8 X10*3/uL (1.2-4.9); Lymphocytes Percent Auto 16.4 % (20-40); Mean Corpuscular Hemoglobin 26.9 pg (27.0-33.0); Mean Corpuscular Volume 89.7 fL (80-98); Mean Platelet Volume 10.1 fL (9.4-12.4); Monocytes Absolute Auto 0.6 X10*3/uL (0.1-1.2); Monocytes Percent Auto 11.6 % (2-11); Neutrophils Absolute Auto 3.2 X10*3/uL (2.0-8.3); Neutrophils Percent Auto 63.2 % (45-73); Platelet Count 199 X10*3/uL (160-400); Red Cell Distribution Width 16.1 % (11.0-16.0)
[2020-04-24 12:18] LABS: Lactic Acid 0.7 mmol/L (0.5-2.0)
[2020-04-24 12:21] LABS: Glucose Urine UA NEG (NEG); Leukocyte Esterase Urine NEG (NEG); Nitrite Urine NEG (NEG); PH 6.5 (5.0-8.0); Specific Gravity - Urine 1.015 (1.005-1.025); Urine Blood NEG (NEG); Urine Ketones NEG (NEG); Urine Protein NEG (NEG-TRACE)
[2020-04-24 12:25] LABS: Alanine Aminotransferase 18 U/L (0-40); Albumin Level 4.2 g/dL (3.5-5.0); Alkaline Phosphatase 67 U/L (39-117); Anion Gap 11 (12-20); Aspartate Amino Transferase 26 U/L (5-37); Bilirubin Total 0.9 mg/dL (0.0-1.0); Blood Urea Nitrogen 18 mg/dL (9-16); Calcium 9.3 mg/dL (8.4-10.2); Carbon Dioxide 33 mmol/L (22-29); Chloride 99 mmol/L (96-108); Estimated Glomerular Filt Rate > 60; Glucose Random 120 mg/dL (60-115); Potassium 4.6 mmol/l (3.3-5.1); Sodium 138 mmol/L (135-145)
[2020-04-24 12:28] LABS: Appearance Urine CLEAR; Color Urine YELLOW
--- NOTE | 2020-04-24 12:54 | ED_ITS ---
HPI - General Adult General Chief complaint: Skin/Abscess/Foreign Body <Harmeet Ascencio NP - Last Filed: 04/25/20 17:32> Stated complaint: LEG INFECTION <Harmeet Ascencio NP - Last Filed: 04/25/20 17:32> Time Seen by Provider: 04/24/20 10:41 <Harmeet Ascencio NP - Last Filed: 04/25/20 17:32> Source: patient <Harmeet Ascencio NP - Last Filed: 04/25/20 17:32> Mode of arrival: ambulatory <Harmeet Ascencio NP - Last Filed: 04/25/20 17:32> Limitations: no limitations <Harmeet Ascencio NP - Last Filed: 04/25/20 17:32> History of Present Illness HPI narrative: this is a pleasant primarily Greek-speaking 84-year-old male with the below noted past medical history presenting via triage in his wheelchair with complaint of left lower extremity redness for which she was treated for cellulitis through his primary care doctor with Keflex and Bactrim he just finished a 7 day course however his GAS DISPATCHER told him that I a.m. look any better to come to the emergency room. States he feels good and to him it appears better he is not sure why they told him come but he came anyways. He denies any fever or chills. No pain or discomfort. Does have some slight swelling in the left lower extremity which according to him is better than his baseline. He is right below-knee amputee. <Harmeet Ascencio NP - Last Filed: 04/25/20 17:32> Onset (ago): day(s) <Harmeet Ascencio NP - Last Filed: 04/25/20 17:32> Location: left <Harmeet Ascencio NP - Last Filed: 04/25/20 17:32> Severity: mild <Harmeet Ascencio NP - Last Filed: 04/25/20 17:32> Associated symptoms: denies other symptoms <Harmeet Ascencio NP - Last Filed: 04/25/20 17:32> Treatments prior to arrival: none <Harmeet Ascencio NP - Last Filed: 04/25/20 17:32> Related Data Home medications: Home Medications Medication Instructions Recorded Confirmed Eliquis 5 mg PO BID 03/28/20 03/28/20 albuterol sulfate 2 puff PO Q4-6H PRN 03/28/20 03/28/20 amlodipine 2.5 mg PO QAM 03/28/20 03/28/20 ascorbic acid (vitamin C) [Vitamin 500 mg PO BID 03/28/20 03/28/20 C] atenolol 25 mg PO QAM 03/28/20 03/28/20 atorvastatin 20 mg PO QAM 03/28/20 03/28/20 cholecalciferol (vitamin D3) 25 mcg PO QAM 03/28/20 03/28/20 ferrous sulfate 325 mg PO BID 03/28/20 03/28/20 fluoxetine 20 mg PO QAM 03/28/20 03/28/20 gabapentin 300 mg PO BID@0800,1400 03/28/20 03/28/20 gabapentin 600 mg PO BEDTIME 03/28/20 03/28/20 melatonin 5 mg PO BEDTIME 03/28/20 03/28/20 metformin 500 mg PO DAILY@1700 03/28/20 03/28/20 potassium chloride 20 meq PO BEDTIME 03/28/20 03/28/20 risperidone 0.25 mg PO BEDTIME 03/28/20 03/28/20 tamsulosin 0.4 mg PO BEDTIME 03/28/20 03/28/20 Previous Rx's Medication Instructions Recorded ammonium lactate [Lac-Hydrin Five] 1 applic TOPICAL DAILY #226 g 03/31/20 amoxicillin-pot clavulanate 1 tab PO BID #10 tab 03/31/20 [Augmentin] furosemide 60 mg PO QAM #0 tab 03/31/20 doxycycline monohydrate 100 mg PO BID 10 Days #20 cap 04/24/20 <Harmeet Ascencio NP - Last Filed: 04/25/20 17:32> Allergies/adverse reactions: Allergies Allergy/AdvReac Type Severity Reaction Status Date / Time bee pollen [BEE STINGS] Allergy Severe ANAPHYLAXIS Verified 04/12/20 09:48 doxycycline [DOXYCYCLINE] Allergy Unknown ? ALLERGY Verified 04/12/20 09:48 PER GAS DISPATCHER SARDINES Allergy Mild ITCHING Uncoded 03/28/20 19:48 bee venom Allergy Unknown unspecified Uncoded 03/28/20 19:48 sardines Allergy Unknown itching Uncoded 03/28/20 19:48 <Harmeet Ascencio NP - Last Filed: 04/25/20 17:32> Review of Systems Review of Systems: Constitutional: No Weight loss, No Fever, No Chills, No Night Sweats, No Fatigue, No Malaise ENT/Mouth: No Hearing loss, No Ear Pain, No Nasal Congestion, No Sinus Pain, No Hoarseness, No sore throat, No Rhinorrhea, No Swallowing Difficulty Eyes: No Eye Pain, No Swelling, No Redness, No Foreign Body, No Discharge, No Vision Changes Cardiovascular: No Chest Pain, No SOB, No Dyspnea on Exertion Respiratory: No Cough, No Sputum, No Wheezing, No Smoke Exposure, No Dyspnea Gastrointestinal: No Nausea, No Vomiting, No Diarrhea, No Constipation, No abdominal Pain, No Hematochezia, No Melena Genitourinary: no irregular bleeding, No Dysuria, No Urinary Frequency, No Hematuria Musculoskeletal: No joint pain, No Myalgias, No Joint Swelling Skin: No Skin Lesions, No rash, as noted Neuro: No Weakness, No Numbness, No Paresthesias, No Loss of Consciousness, No Dizziness, No Headache Psych: No Social Issues Heme/Lymph: No Bruising, No Bleeding,No Lymphadenopathy Endocrine: No Polyuria, No Polydipsia, No Temperature Intolerance <Harmeet Ascencio NP - Last Filed: 04/25/20 17:32> [facility] Past Medical History Attestation statement: The following information was validated with the patient. <Harmeet Ascencio NP - Last Filed: 04/25/20 17:32> Source: unable to obtain <Harmeet Ascencio NP - Last Filed: 04/25/20 17:32> Medical History: Medical History Afib Alcoholic cardiomyopathy BPH (benign prostatic hyperplasia) COPD (chronic obstructive pulmonary disease) Diabetes Hyperlipidemia Prostate cancer PVD (peripheral vascular disease) <Harmeet Ascencio NP - Last Filed: 04/25/20 17:32> Surgical History: Surgical History Hx of BKA <Harmeet Ascencio NP - Last Filed: 04/25/20 17:32> Family History Family History: Family History Mother No problems noted. Father No problems noted. Son No problems noted. Son No problems noted. Son No problems noted. Son No problems noted. Daughter No problems noted. Daughter No problems noted. Daughter No problems noted. <Harmeet Ascencio NP - Last Filed: 04/25/20 17:32> Social History Social History: Social History Housing: Apartment Alcohol intake: former Smoking Status: Former smoker Advance Directives: Yes Advance Directives on File: Yes Advance Directives Date on File: 03/28/20 service: No Current occupational status: disabled <Harmeet Ascencio NP - Last Filed: 04/25/20 17:32> Physical Exam Vital Signs: Vital Signs: Last Vital Signs Temp 98.2 F 04/24/20 12:00 Pulse 62 04/24/20 12:00 Resp 18 04/24/20 12:00 BP 163/79 H 04/24/20 12:00 Pulse Ox 96 04/24/20 12:00 Body Mass Index 25.8 Reviewed <Harmeet Ascencio NP - Last Filed: 04/25/20 17:32> Vital Signs: Last Vital Signs Temp 98.2 F 04/24/20 12:00 Pulse 62 04/24/20 12:00 Resp 18 04/24/20 12:00 BP 163/79 H 04/24/20 12:00 Pulse Ox 96 04/24/20 12:00 Body Mass Index 25.8 <Lee Uriostegui MD - Last Filed: 04/30/20 07:28> Const: General: cooperative and healthy appearing; No acute distress or intoxicated appearing <Harmeet Ascencio NP - Last Filed: 04/25/20 17:32> Nutritional Appearance: average body habitus <Harmeet Ascencio NP - Last Filed: 04/25/20 17:32> Orientation/consciousness: patient oriented x3 <Harmeet Ascencio NP - Last Filed: 04/25/20 17:32> HENMT: Head: Yes normal to inspection <Harmeet Ascencio NP - Last Filed: 04/25/20 17:32> Ears: hearing grossly normal bilaterally <Harmeet Ascencio NP - Last Filed: 04/25/20 17:32> Eyes: General: appearance normal, both eyes and all related structures <[facility] Ascencio [facility] Last Filed: 04/25/20 17:32> Visual Ibanez: normal visual ibanez by confrontation [facility] Last Filed: 04/25/20 17:32> Neck: Neck: Yes normal visual inspection and No tender <[facility] Ascencio [facility] Last Filed: 04/25/20 17:32> Thyroid: Thyroid normal [facility] - Last Filed: 04/25/20 17:32> Chest: Chest palpation & inspection: normal inspection of the chest <[facility] Last Filed: 04/25/20 17:32> Resp: Effort & Inspection: normal respiratory effort [facility] Last Filed: 04/25/20 17:32> Auscultation: clear to auscultation bilaterally <[facility] Last Filed: 04/25/20 17:32> Cardio: Jugular venous distension: no JVD [facility] - Last Filed: 04/25/20 17:32> Rate: regular rate <[facility] - Last Filed: 04/25/20 17:32> GI: Inspection: Yes normal to inspection [facility] Last Filed: 04/25/20 17:32> Percussion: Yes normal to percussion <[facility] - Last Filed: 04/25/20 17:32> Auscultation: normal bowel sounds <[facility] Last Filed: 04/25/20 17:32> : General: Yes no CVA tenderness <[facility] Last Filed: 04/25/20 17:32> Back/Spine/Pelvis: Back: no CVA tenderness <[facility] - Last Filed: 04/25/20 17:32> Skin: General skin exam: no rashes or lesions noted <[facility] Last Filed: 04/25/20 17:32> Neuro: General: patient oriented x3 <[facility] Last Filed: 04/25/20 17:32> Extrem: Other: <Harmeet Ascencio NP - Last Filed: 04/25/20 17:32> Course Course Course Narrative: I have reviewed the chart <Lee Uriostegui MD - Last Filed: 04/30/20 07:28> Medical Decision Making MDM Narrative Medical decision making narrative: 84-year-old comorbid patient with above history presenting left lower extremity status post trial of oral antibiotics essentially failed oral antibiotics though with stable labs given his feel antibiotics recommendation for admission for IV antibiotics. Patient very resistant to this I did speak to his GAS DISPATCHER states if can convince patient he will not stay. He is requesting a ntibiotics for home and will follow-up with his primary care doctor. At this point again recommendation for inpatient level care he will sign out against medical advice. Labs otherwise stable ultrasound without evidence of DVT. <Harmeet Ascencio NP - Last Filed: 04/25/20 17:32> Lab Data Result diagrams: : 04/24/20 11:47 04/24/20 11:47 <Harmeet Ascencio NP - Last Filed: 04/25/20 17:32> Labs: Lab Results 04/24/20 04/24/20 04/24/20 Range/Units 11:47 11:47 11:48 WBC 5.0 (4.8-10.8) X10*3/uL RBC 3.90 L D (4.60-5.80) X10*6/uL Hgb 10.5 L D (14.0-18.0) g/dl Hct 35.0 L D (42-52) % MCV 89.7 (80-98) fL MCH 26.9 L (27.0-33.0) pg MCHC 30.0 L (31.0-36.0) g/dl RDW 16.1 H (11.0-16.0) % Plt Count 199 (160-400) X10*3/uL MPV 10.1 (9.4-12.4) fL Immature Gran % (Auto) 0.4 (0.0-0.4) % Neut % (Auto) 63.2 (45-73) % Lymph % (Auto) 16.4 L (20-40) % Preston % (Auto) 11.6 H (2-11) % Eos % (Auto) 7.8 H (0-4) % Baso % (Auto) 0.6 (0-2) % Lymph # (Auto) 0.8 L (1.2-4.9) X10*3/uL Preston # (Auto) 0.6 (0.1-1.2) X10*3/uL Eos # (Auto) 0.4 (0.0-0.4) X10*3/uL Baso # (Auto) 0.0 (0.0-0.2) X10*3/uL Abs Immat Gran (auto) 0.02 (0.00-0.03) X10*3/uL Absolute Neuts (auto) 3.2 (2.0-8.3) X10*3/uL Absolute Nucleated RBC 0.000 (0.0-0.012) X10*3/uL Nucleated RBC % (auto) 0.0 (0.0-0.2) /100WBC Sodium 138 (135-145) mmol/L Potassium 4.6 (3.3-5.1) mmol/l Chloride 99 (96-108) mmol/L Carbon Dioxide 33 H (22-29) mmol/L Anion Gap 11 L (12-20) BUN 18 H (9-16) mg/dL Creatinine 1.04 (0.5-1.4) mg/dL Estim Creat Clear Calc 59.0 Estimated GFR > 60 Random Glucose 120 H (60-115) mg/dL Lactic Acid 0.7 (0.5-2.0) mmol/L Calcium 9.3 D (8.4-10.2) mg/dL Total Bilirubin 0.9 (0.0-1.0) mg/dL AST 26 D (5-37) U/L ALT 18 (0-40) U/L Alkaline Phosphatase 67 D (39-117) U/L Total Protein 8.0 (6.5-8.0) g/dL Albumin 4.2 (3.5-5.0) g/dL Urine Color Urine Appearance Urine pH (5.0-8.0) Ur Specific [place] (1.005-1.025) Urine Protein (NEG-TRACE) MG/DL Urine Glucose (UA) (NEG) MG/DL Urine Ketones (NEG) MG/DL Urine Blood (NEG) Urine Nitrite (NEG) Ur Leukocyte Esterase (NEG) Urine RBC (0) /HPF Urine WBC (0-4) /HPF Ur Squamous Epith Cells /LPF Urine Bacteria /LPF 04/24/20 Range/Units 11:48 WBC (4.8-10.8) X10*3/uL RBC (4.60-5.80) X10*6/uL Hgb (14.0-18.0) g/dl Hct (42-52) % MCV (80-98) fL MCH (27.0-33.0) pg MCHC (31.0-36.0) g/dl RDW (11.0-16.0) % Plt Count (160-400) X10*3/uL MPV (9.4-12.4) fL Immature Gran % (Auto) (0.0-0.4) % Neut % (Auto) (45-73) % Lymph % (Auto) (20-40) % Preston % (Auto) (2-11) % Eos % (Auto) (0-4) % Baso % (Auto) (0-2) % Lymph # (Auto) (1.2-4.9) X10*3/uL Preston # (Auto) (0.1-1.2) X10*3/uL Eos # (Auto) (0.0-0.4) X10*3/uL Baso # (Auto) (0.0-0.2) X10*3/uL Abs Immat Gran (auto) (0.00-0.03) X10*3/uL Absolute Neuts (auto) (2.0-8.3) X10*3/uL Absolute Nucleated RBC (0.0-0.012) X10*3/uL Nucleated RBC % (auto) (0.0-0.2) /100WBC Sodium (135-145) mmol/L Potassium (3.3-5.1) mmol/l Chloride (96-108) mmol/L Carbon Dioxide (22-29) mmol/L Anion Gap (12-20) BUN (9-16) mg/dL Creatinine (0.5-1.4) mg/dL Estim Creat Clear Calc Estimated GFR Random Glucose (60-115) mg/dL Lactic Acid (0.5-2.0) mmol/L Calcium (8.4-10.2) mg/dL Total Bilirubin (0.0-1.0) mg/dL AST (5-37) U/L ALT (0-40) U/L Alkaline Phosphatase (39-117) U/L Total Protein (6.5-8.0) g/dL Albumin (3.5-5.0) g/dL Urine Color YELLOW Urine Appearance CLEAR Urine pH 6.5 (5.0-8.0) Ur Specific [place] 1.015 (1.005-1.025) Urine Protein NEG (NEG-TRACE) MG/DL Urine Glucose (UA) NEG (NEG) MG/DL Urine Ketones NEG (NEG) MG/DL Urine Blood NEG (NEG) Urine Nitrite NEG (NEG) Ur Leukocyte Esterase NEG (NEG) Urine RBC 0 (0) /HPF Urine WBC 0-2 (0-4) /HPF Ur Squamous Epith Cells NONE /LPF Urine Bacteria NONE /LPF <Harmeet Ascencio NP - Last Filed: 04/25/20 17:32> Lab Results 04/24/20 04/24/20 04/24/20 Range/Units 11:47 11:47 11:48 WBC 5.0 (4.8-10.8) X10*3/uL RBC 3.90 L D (4.60-5.80) X10*6/uL Hgb 10.5 L D (14.0-18.0) g/dl Hct 35.0 L D (42-52) % MCV 89.7 (80-98) fL MCH 26.9 L (27.0-33.0) pg MCHC 30.0 L (31.0-36.0) g/dl RDW 16.1 H (11.0-16.0) % Plt Count 199 (160-400) X10*3/uL MPV 10.1 (9.4-12.4) fL Immature Gran % (Auto) 0.4 (0.0-0.4) % Neut % (Auto) 63.2 (45-73) % Lymph % (Auto) 16.4 L (20-40) % Preston % (Auto) 11.6 H (2-11) % Eos % (Auto) 7.8 H (0-4) % Baso % (Auto) 0.6 (0-2) % Lymph # (Auto) 0.8 L (1.2-4.9) X10*3/uL Preston # (Auto) 0.6 (0.1-1.2) X10*3/uL Eos # (Auto) 0.4 (0.0-0.4) X10*3/uL Baso # (Auto) 0.0 (0.0-0.2) X10*3/uL Abs Immat Gran (auto) 0.02 (0.00-0.03) X10*3/uL Absolute Neuts (auto) 3.2 (2.0-8.3) X10*3/uL Absolute Nucleated RBC 0.000 (0.0-0.012) X10*3/uL Nucleated RBC % (auto) 0.0 (0.0-0.2) /100WBC Sodium 138 (135-145) mmol/L Potassium 4.6 (3.3-5.1) mmol/l Chloride 99 (96-108) mmol/L Carbon Dioxide 33 H (22-29) mmol/L Anion Gap 11 L (12-20) BUN 18 H (9-16) mg/dL Creatinine 1.04 (0.5-1.4) mg/dL Estim Creat Clear Calc 59.0 Estimated GFR > 60 Random Glucose 120 H (60-115) mg/dL Lactic Acid 0.7 (0.5-2.0) mmol/L Calcium 9.3 D (8.4-10.2) mg/dL Total Bilirubin 0.9 (0.0-1.0) mg/dL AST 26 D (5-37) U/L ALT 18 (0-40) U/L Alkaline Phosphatase 67 D (39-117) U/L Total Protein 8.0 (6.5-8.0) g/dL Albumin 4.2 (3.5-5.0) g/dL Urine Color Urine Appearance Urine pH (5.0-8.0) Ur Specific [place] (1.005-1.025) Urine Protein (NEG-TRACE) MG/DL Urine Glucose (UA) (NEG) MG/DL Urine Ketones (NEG) MG/DL Urine Blood (NEG) Urine Nitrite (NEG) Ur Leukocyte Esterase (NEG) Urine RBC (0) /HPF Urine WBC (0-4) /HPF Ur Squamous Epith Cells /LPF Urine Bacteria /LPF 04/24/ Range/Units 11:48 WBC (4.8-10.8) X10*3/uL RBC (4.60-5.80) X10*6/uL Hgb (14.0-18.0) g/dl Hct (42-52) % MCV (80-98) fL MCH (27.0-33.0) pg MCHC (31.0-36.0) g/dl RDW (11.0-16.0) % Plt Count (160-400) X10*3/uL MPV (9.4-12.4) fL Immature Gran % (Auto) (0.0-0.4) % Neut % (Auto) (45-73) % Lymph % (Auto) (20-40) % Preston % (Auto) (2-11) % Eos % (Auto) (0-4) % Baso % (Auto) (0-2) % Lymph # (Auto) (1.2-4.9) X10*3/uL Preston # (Auto) (0.1-1.2) X10*3/uL Eos # (Auto) (0.0-0.4) X10*3/uL Baso # (Auto) (0.0-0.2) X10*3/uL Abs Immat Gran (auto) (0.00-0.03) X10*3/uL Absolute Neuts (auto) (2.0-8.3) X10*3/uL Absolute Nucleated RBC (0.0-0.012) X10*3/uL Nucleated RBC % (auto) (0.0-0.2) /100WBC Sodium (135-145) mmol/L Potassium (3.3-5.1) mmol/l Chloride (96-108) mmol/L Carbon Dioxide (22-29) mmol/L Anion Gap (12-20) BUN (9-16) mg/dL Creatinine (0.5-1.4) mg/dL Estim Creat Clear Calc Estimated GFR Random Glucose (60-115) mg/dL Lactic Acid (0.5-2.0) mmol/L Calcium (8.4-10.2) mg/dL Total Bilirubin (0.0-1.0) mg/dL AST (5-37) U/L ALT (0-40) U/L Alkaline Phosphatase (39-117) U/L Total Protein (6.5-8.0) g/dL Albumin (3.5-5.0) g/dL Urine Color YELLOW Urine Appearance CLEAR Urine pH 6.5 (5.0-8.0) Ur Specific [place] 1.015 (1.005-1.025) Urine Protein NEG (NEG-TRACE) MG/DL Urine Glucose (UA) NEG (NEG) MG/DL Urine Ketones NEG (NEG) MG/DL Urine Blood NEG (NEG) Urine Nitrite NEG (NEG) Ur Leukocyte Esterase NEG (NEG) Urine RBC 0 (0) /HPF Urine WBC 0-2 (0-4) /HPF Ur Squamous Epith Cells NONE /LPF Urine Bacteria NONE /LPF <Lee Uriostegui MD - Last Filed: 04/30/20 07:28> Discharge Plan Discharge Clinical Impression: Cellulitis, Stasis dermatitis <Harmeet Ascencio NP - Last Filed: 04/25/20 17:32> Patient Disposition: Left Against Medical Advice <Harmeet Ascencio NP - Last Filed: 04/25/20 17:32> Instructions: Cellulitis (ED) <Harmeet Ascencio NP - Last Filed: 04/25/20 17:32> Additional Instructions: Today you were evaluated for skin infection in the left leg. Has been recommended given that you feel that outpatient treatment of antibiotics that we admit you for IV antibiotics. You have declined admission here and elected to sign out against medical advice with understanding the condition can worsen and cause serious problems to health including but not limited to Please take antibiotics as prescribed Follow-up her primary care doctor 1-2 days for recheck Return if any concerns or worsening symptoms Thank you <Harmeet Ascencio NP - Last Filed: 04/25/20 17:32> Prescriptions: New doxycycline monohydrate 100 mg capsule 100 mg PO BID 10 Days Qty: 20 RF: 0 No Action metformin 500 mg tablet 500 mg PO DAILY@1700 RF: 0 gabapentin 600 mg tablet 600 mg PO BEDTIME RF: 0 atorvastatin 20 mg tablet 20 mg PO QAM RF: 0 atenolol 25 mg tablet 25 mg PO QAM RF: 0 risperidone 0.25 mg tablet 0.25 mg PO BEDTIME RF: 0 amlodipine 2.5 mg tablet 2.5 mg PO QAM RF: 0 potassium chloride 20 mEq tablet,ER particles/crystals 20 meq PO BEDTIME RF: 0 ascorbic acid (vitamin C) [Vitamin C] 500 mg tablet 500 mg PO BID RF: 0 tamsulosin 0.4 mg capsule 0.4 mg PO BEDTIME RF: 0 ferrous sulfate 325 mg (65 mg iron) tablet 325 mg PO BID RF: 0 gabapentin 300 mg capsule 300 mg PO BID@0800,1400 RF: 0 albuterol sulfate 90 mcg/actuation HFA aerosol inhaler 2 puff PO Q4-6H PRN (Reason: Shortness Of Breath) RF: 0 fluoxetine 20 mg capsule 20 mg PO QAM RF: 0 cholecalciferol (vitamin D3) 25 mcg (1,000 unit) tablet 25 mcg PO QAM RF: 0 melatonin 5 mg tablet 5 mg PO BEDTIME RF: 0 Eliquis 5 mg tablet 5 mg PO BID RF: 0 amoxicillin-pot clavulanate [Augmentin] 500-125 mg tablet 1 tab PO BID Qty: 10 RF: 0 Lac-Hydrin Five 5 % lotion 1 applic topical DAILY Qty: 226 RF: 0 furosemide 40 mg tablet 60 mg PO QAM Qty: 0 RF: 0 <Harmeet Ascencio NP - Last Filed: 04/25/20 17:32> Referrals: Alexa Barajas NP [Primary Care Provider] - 2 days <Harmeet Ascencio NP - Last Filed: 04/25/20 17:32> Interventions: ED Discharge Assessment Last Done: 04/24/20 15:00 <Harmeet Ascencio NP - Last Filed: 04/25/20 17:32> Discharge Date/Time: 04/24/20 15:01 <Harmeet Ascencio NP - Last Filed: 04/25/20 17:32>
[2020-04-24 13:49] LABS: RBC Urine 0 /HPF (0); WBC Urine 0-2 /HPF (0-4)
--- NOTE | 2020-04-24 14:06 | PC.NURSE ---
pts son called about picking up pt
== END 2020-04-24 15:01 | disposition left against medical advice (07) ==
PROVIDERS: Nurse Practitioner Primary Care; Emergency Provider Emergency Medicine; PCP Nurse Practitioner Family
DX: L03.116 Cellulitis of left lower limb (principal); R60.0 Localized edema; Z79.899 Other long term (current) drug therapy; Z79.01 Long term (current) use of anticoagulants; Z87.891 Personal history of nicotine dependence
CPT/HCPCS: 36415; 80053; 81001; 83605; 85025; 87040; 93971; 99284

== ENCOUNTER 2020-05-11 09:46 | Outpatient (REF) | payer MEDICARE, SELFPAY ==
--- NOTE | 2020-05-11 | PFT_ITS ---
Forced vital capacity and FEV1 are both markedly decreased. FEV1 over FVC ratio is normal. [id number] and MVV are also markedly decreased. Post bronchodilator therapy, there is no significant change except for slight improvement in MVV. Total lung capacity and residual volume are markedly decreased. Diffusion capacity markedly decreased. CONCLUSION: These findings are consistent with rather severe degree of restrictive pulmonary disorder. There could be associated mild obstructive airway disorder. For this, clinical correlation is recommended. No significant response to bronchodilator therapy was noted. MD YAHAIRA Diaz/MODL / [id number]
== END 2020-05-11 09:47 | disposition home or self-care (01) ==
LOC: HO.RESP 09:46
PROVIDERS: PCP Nurse Practitioner Family; Visit Provider Nurse Practitioner Family
DX: R06.00 Dyspnea, unspecified (principal)
CPT/HCPCS: 94060; 94727; 94729

== ENCOUNTER 2020-05-23 10:00 | Outpatient (REF) | payer MEDICARE, SELFPAY ==
--- NOTE | 2020-05-23 10:00 | CT_ITS ---
EXAMINATION: CT CHEST WITHOUT CONTRAST CLINICAL INFORMATION: Nonspecific finding of lung field. Follow-up pulmonary nodules. COMPARISON: Previous chest x-ray most recent March [address] most recent December 2018 TECHNIQUE: Multidetector volumetric CT imaging of the chest was done. Axial MIP volume rendering provided. Sagittal and coronal reformatted images were obtained. This CT examination was performed using dose optimization techniques as appropriate, variously including the following: *Automated exposure control *Adjustment of mA and/or kV according to patient size (this includes techniques or standardized protocols for targeted exams where dose is matched to indication/reason for exam; i.e. extremities or head) *Use of iterative reconstruction technique DLP: 2 x 8 mGy-cm FINDINGS: LUNGS: There is biapical pleural and parenchymal scarring, left greater than right. The bilateral pulmonary nodules are stable. Largest left pulmonary nodule is a 6 x 10 mm left upper lobe nodule axial image 123 series 7 and largest right pulmonary nodule is a 6 x 8 mm right lower lobe nodule axial image 4 9 series 7. There is volume loss to the left upper lobe that is stable. There is scarring or subsegmental atelectasis in the right upper lobe that is stable. There are scattered areas of mild bronchial wall thickening. MEDIASTINUM: There are small mediastinal lymph nodes. No enlarged lymph nodes are seen. The heart is upper normal in size. There is mild coronary artery calcification. There is no pericardial effusion. Pulmonary arteries are slightly enlarged, main pulmonary artery measuring 2.5 cm. PLEURA: There is no pleural effusion. No pleural mass or thickening. AXILLA: No lymphadenopathy. UPPER ABDOMEN: There are gallstones in the gallbladder. OSSEOUS STRUCTURES: There are degenerative changes of the spine. CT/CT chest wo con IMPRESSION: Stable biapical pleural parenchymal scarring, left greater than right. Stable bilateral pulmonary nodules and volume loss to the left upper lobe. Question mild diffuse bronchial wall thickening. Enlarged heart. Prominent pulmonary arteries.
== END 2020-05-23 10:01 | disposition home or self-care (01) ==
LOC: HO.CT 10:00
PROVIDERS: PCP Nurse Practitioner Family; Visit Provider Nurse Practitioner Family
DX: R91.8 Other nonspecific abnormal finding of lung field (principal)
CPT/HCPCS: 71250

== ENCOUNTER 2020-07-04 12:40 | Inpatient (IN) | payer MEDICARE, SELFPAY ==
[2020-07-04] VITALS (7 sets, daily range): BP systolic 145–187; BP diastolic 57–91; PULSE 67–81; RESP 16–21; TEMP 35.8–36.8; O2SAT 94–100; BMI 30.9
--- NOTE | 2020-07-04 13:01 | ED.GENADULT ---
HPI - General Adult General Chief complaint: Extremity Problem <BRIAN Abdi - Last Filed: 07/04/20 17:06> Stated complaint: leg infection <BRIAN Abdi - Last Filed: 07/04/20 17:06> Time Seen by Provider: 07/04/20 12:59 <BRIAN Abdi - Last Filed: 07/04/20 17:06> Source: patient <BRIAN Abdi - Last Filed: 07/04/20 17:06> Mode of arrival: wheelchair <BRIAN Abdi - Last Filed: 07/04/20 17:06> Limitations: language barrier <BRIAN Abdi - Last Filed: 07/04/20 17:06> History of Present Illness HPI narrative: 84 y/o Beninese-speaking male with history of PAD s/p right BKA, COPD, alcoholic cardiomyopathy, atrial fibrillation on Eliquis, DM with neuopathy who presents to the ED from home with increased LE edema, redness x1 week and concern for infection. His [employer]EL[employer] provides most of the history as patient is a poor historian. He has been reporting increase in pain and swelling of the leg lower leg. He also has pain at the stump of his right leg with increased redness. His left lower leg has had chronic skin sloughing but it is worsened over the last 1 week. No fever or chills at home per [employer]EL[employer]. He has been reporting SOB at rest and with minimal exertion. No chest pain. He has been compliant with all medications including his inhalers and diuretics. <BRIAN Abdi - Last Filed: 07/04/20 17:06> Related Data Home medications: Home Medications Medication Instructions Recorded Confirmed Eliquis 5 mg PO BID 03/28/20 07/04/20 albuterol sulfate 2 puff PO Q4-6H PRN 03/28/20 07/04/20 amlodipine 2.5 mg PO DAILY 03/28/20 07/04/20 ascorbic acid (vitamin C) [Vitamin 500 mg PO BID 03/28/20 07/04/20 C] atenolol 25 mg PO DAILY 03/28/20 07/04/20 atorvastatin 20 mg PO QAM 03/28/20 07/04/20 cholecalciferol (vitamin D3) 25 mcg PO DAILY 03/28/20 07/04/20 ferrous sulfate 325 mg PO BID 03/28/20 07/04/20 fluoxetine 20 mg PO DAILY 03/28/20 07/04/20 gabapentin 300 mg PO BID@0800,1400 03/28/20 07/04/20 gabapentin 600 mg PO BEDTIME 03/28/20 07/04/20 melatonin 5 mg PO BEDTIME 03/28/20 07/04/20 metformin 500 mg PO DAILY@1700 03/28/20 07/04/20 potassium chloride 20 meq PO BEDTIME 03/28/20 07/04/20 risperidone 0.25 mg PO BEDTIME 03/28/20 07/04/20 tamsulosin 0.4 mg PO DAILY@1700 03/28/20 07/04/20 ammonium lactate 1 appl TOPICAL DAILY 07/04/20 07/04/20 furosemide 80 mg PO QAM 07/04/20 07/04/20 Previous Rx's Medication Instructions Recorded doxycycline hyclate 100 mg PO DAILY #10 cap 07/08/20 <BRIAN Abdi - Last Filed: 07/04/20 17:06> Allergies/adverse reactions: Allergies Allergy/AdvReac Type Severity Reaction Status Date / Time bee pollen [BEE STINGS] Allergy Severe ANAPHYLAXIS Verified 07/04/20 13:06 doxycycline [DOXYCYCLINE] Allergy Unknown ? 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 [place]ES Allergy Mild ITCHING Uncoded 03/28/20 19:48 bee venom Allergy Unknown unspecified Uncoded 03/28/20 19:48 sardines Allergy Unknown itching Uncoded 03/28/20 19:48 <BRIAN Abdi - Last Filed: 07/04/20 17:06> Review of Systems Review of Systems: Constitutional: No Fever, No Chills ENT/Mouth: No sore throat, No Rhinorrhea, No Swallowing Difficulty Eyes: No Eye Pain, No Swelling, No Redness Cardiovascular: No Chest Pain, No SOB, No Orthopnea, No Edema Respiratory: No Cough, No Sputum, No Wheezing, No dyspnea Gastrointestinal: No Nausea, No Vomiting, No Diarrhea, No abdominal Pain, No Hematochezia, No Melena Genitourinary: No Dysuria, No Urinary Frequency, No Hematuria Musculoskeletal: No joint pain, No Myalgias Skin: No Skin Lesions, No rash Neuro: No Weakness, No Numbness, No Dizziness, No Headache Psych: No Anxiety/Panic, No Depression Heme/Lymph: No Bruising, No Lymphadenopathy Endocrine: No Polyuria, No Polydipsia <BRIAN Abdi - Last Filed: 07/04/20 17:06> [facility] Past Medical History Medical History: Medical History Afib Alcoholic cardiomyopathy BPH (benign prostatic hyperplasia) COPD (chronic obstructive pulmonary disease) Diabetes Hyperlipidemia Prostate cancer PVD (peripheral vascular disease) <BRIAN Abdi - Last Filed: 07/04/20 17:06> Surgical History: Surgical History Hx of BKA <BRIAN Abdi - Last Filed: 07/04/20 17:06> Family History Family History: Family History Mother No problems noted. Father No problems noted. Son No problems noted. Son No problems noted. Son No problems noted. Son No problems noted. Daughter No problems noted. Daughter No problems noted. Daughter No problems noted. <BRIAN Abdi - Last Filed: 07/04/20 17:06> Social History Social History: Social History Household Members: None Housing: Apartment Alcohol intake: never Smoking Status: Never smoker Advance Directives Date on File: 03/28/20 service: No Current occupational status: retired <BRIAN Abdi - Last Filed: 07/04/20 17:06> Physical Exam Vital Signs: Vital Signs: Last Vital Signs Temp 98.4 F 07/08/20 11:20 Pulse 79 07/08/20 11:20 Resp 18 07/08/20 11:20 BP 140/69 H 07/08/20 11:20 Pulse Ox 95 07/08/20 11:20 Body Mass Index 30.9 Appearance: Alert. Oriented X3. No acute distress. Eyes: Pupils equal, round and reactive to light. ENT: Pharynx normal. Neck: Normal inspection. Neck supple. CVS: irregularly irregular, normal rate. Respiratory: No respiratory distress. Bilateral crackles to middle lung castro. Abdomen: Soft and nontender. +BS x4 Skin: Skin warm and dry. Normal skin color. Normal skin turgor. No rashes. Extremities: 3+ LE edema of LLE with erythema and skin sloughiging wtih some yellowing discolorations, areas of raw red skin scattered throughout left lower leg. right BKA stump with mild areas of erythema and red raw skin as well. Cool to the touch. Neuro: Oriented X 2. Confused at times, poor historian. equal hand grasp bilaterally. Non-focal. <BRIAN Abdi - Last Filed: 07/04/20 17:06> Vital Signs: Last Vital Signs Temp 98.4 F 07/08/20 11:20 Pulse 79 07/08/20 11:20 Resp 18 07/08/20 11:20 BP 140/69 H 07/08/20 11:20 Pulse Ox 95 07/08/20 11:20 Body Mass Index 30.9 <Lee Uriostegui MD - Last Filed: 07/11/20 09:24> Course Course Course Narrative: 84 y/o male with multiple comorbidites including DM, PVD s/p BKA, hx cellulitis, afib on Eliquis, COPD, ETOH CMP who presents with increased LE edema and pain L>R x1 week. Concern for cellulitis with bilateral skin changes vs volume overload. Will get cultures, basic lab workup, CXR, EKG. IV Vanco and Zosyn ordered for cellulitis, doubt abscess formation given changes are bilateral (although less so at stump). Low concern for DVT given he is anticoagulated but with erythema, edema and pain will get LE dopplers. Anticipate admission. <BRIAN Abdi - Last Filed: 07/04/20 17:06> I have reviewed the chart <Lee Uriostegui MD - Last Filed: 07/11/20 09:24> Reevaluation(s) Reevaluation #1: No leukocytosis or elevation of lactic acid. Held off on IVF given c/o SOB. CXR showed cardiomegaly, no acute disease in the chest. BNP 102, increased from 90 prior. Unknown EF with hx ETOH cardiomyopathy, he is on lasix and has been compliant per [employer] DEVELOPER. No hypoxia or difficutly breathing. <BRIAN Abdi - Last Filed: 07/04/20 17:06> Reevaluation #2: At 15:30 patient became acutely SOB and hypoxic with SpO2 into the 70's. This started about 15-20 minutes into Vanco infusion. SBP at the time 200's. Patient placed on 4L with improvement in sats and SOB. Concern for acute flash pulmonary edema. IV vanco stopped. Less likely allergic reaction to vancomycin. CT chest ordered, will likely require IV lasix. Spoke with Dr. Holland who will come evaluate the patient for admission to the hospital. <BRIAN Abdi - Last Filed: 07/04/20 17:06> Reevaluation #3: Dr. Palomo evaluted the patient and will admit. <BRIAN Abdi - Last Filed: 07/04/20 17:06> Medical Decision Making Lab Data Result diagrams: : 07/05/20 05:23 07/06/20 05:20 <BRIAN Abdi - Last Filed: 07/04/20 17:06> Labs: Lab Results 07/04/20 07/04/20 07/04/20 Range/Units 13:34 13:58 13:58 WBC (4.8-10.8) X10*3/uL RBC (4.60-5.80) X10*6/uL Hgb (14.0-18.0) g/dl Hct (42-52) % MCV (80-98) fL MCH (27.0-33.0) pg MCHC (31.0-36.0) g/dl RDW (11.0-16.0) % Plt Count (160-400) X10*3/uL MPV (9.4-12.4) fL Immature Gran % (Auto) (0.0-0.4) % Neut % (Auto) (45-73) % Lymph % (Auto) (20-40) % [place] % (Auto) (2-11) % Eos % (Auto) (0-4) % Baso % (Auto) (0-2) % Lymph # (Auto) (1.2-4.9) X10*3/uL [place] # (Auto) (0.1-1.2) X10*3/uL Eos # (Auto) (0.0-0.4) X10*3/uL Baso # (Auto) (0.0-0.2) X10*3/uL Abs Immat Gran (auto) (0.00-0.03) X10*3/uL Absolute Neuts (auto) (2.0-8.3) X10*3/uL Absolute Nucleated RBC (0.0-0.012) X10*3/uL Nucleated RBC % (auto) (0.0-0.2) /100WBC ESR (0-15) MM/HR PT 14.6 H D (10.8-13.0) SEC INR 1.2 H (0.9-1.1) APTT 46.2 H (24.1-38.0) SEC Sodium 140 (135-145) mmol/L Potassium 4.9 (3.3-5.1) mmol/l Chloride 102 (96-108) mmol/L Carbon Dioxide 31 H (22-29) mmol/L Anion Gap 12 (12-20) BUN 27 H (9-16) mg/dL Creatinine 1.30 (0.5-1.4) mg/dL Estim Creat Clear Calc 50.4 Estimated GFR 53 Random Glucose 156 H (60-115) mg/dL Lactic Acid (0.5-2.0) mmol/L Calcium 9.0 (8.4-10.2) mg/dL Magnesium 2.3 (1.6-2.6) mg/dL Total Bilirubin 1.0 (0.0-1.0) mg/dL Direct Bilirubin 0.4 (0.0-0.5) mg/dL AST 14 D (5-37) U/L ALT 9 (0-40) U/L Alkaline Phosphatase 69 (39-117) U/L Troponin I High Sens (<3.5-35.0) ng/L C-Reactive Protein 2.39 H (< or = 0.50) mg/dL B-Natriuretic Peptide (<100) pg/mL Total Protein 7.5 (6.5-8.0) g/dL Albumin 3.9 (3.5-5.0) g/dL COVID-19 (ELPIDIO) Negative (Negative) COVID-19 Clin Com See Note 07/04/20 07/04/20 07/04/20 Range/Units 13:59 13:59 13:59 WBC (4.8-10.8) X10*3/uL RBC (4.60-5.80) X10*6/uL Hgb (14.0-18.0) g/dl Hct (42-52) % MCV (80-98) fL MCH (27.0-33.0) pg MCHC (31.0-36.0) g/dl RDW (11.0-16.0) % Plt Count (160-400) X10*3/uL MPV (9.4-12.4) fL Immature Gran % (Auto) (0.0-0.4) % Neut % (Auto) (45-73) % Lymph % (Auto) (20-40) % [place] % (Auto) (2-11) % Eos % (Auto) (0-4) % Baso % (Auto) (0-2) % Lymph # (Auto) (1.2-4.9) X10*3/uL [place] # (Auto) (0.1-1.2) X10*3/uL Eos # (Auto) (0.0-0.4) X10*3/uL Baso # (Auto) (0.0-0.2) X10*3/uL Abs Immat Gran (auto) (0.00-0.03) X10*3/uL Absolute Neuts (auto) (2.0-8.3) X10*3/uL Absolute Nucleated RBC (0.0-0.012) X10*3/uL Nucleated RBC % (auto) (0.0-0.2) /100WBC ESR 54 H (0-15) MM/HR PT (10.8-13.0) SEC INR (0.9-1.1) APTT (24.1-38.0) SEC Sodium (135-145) mmol/L Potassium (3.3-5.1) mmol/l Chloride (96-108) mmol/L Carbon Dioxide (22-29) mmol/L Anion Gap (12-20) BUN (9-16) mg/dL Creatinine (0.5-1.4) mg/dL Estim Creat Clear Calc Estimated GFR Random Glucose (60-115) mg/dL Lactic Acid 0.7 (0.5-2.0) mmol/L Calcium (8.4-10.2) mg/dL Magnesium (1.6-2.6) mg/dL Total Bilirubin (0.0-1.0) mg/dL Direct Bilirubin (0.0-0.5) mg/dL AST (5-37) U/L ALT (0-40) U/L Alkaline Phosphatase (39-117) U/L Troponin I High Sens 6.1 (<3.5-35.0) ng/L C-Reactive Protein (< or = 0.50) mg/dL B-Natriuretic Peptide 102 H (<100) pg/mL Total Protein (6.5-8.0) g/dL Albumin (3.5-5.0) g/dL COVID-19 (ELPIDIO) (Negative) COVID-19 Clin Com 07/04/20 Range/Units 14:00 WBC 5.7 (4.8-10.8) X10*3/uL RBC 3.74 L (4.60-5.80) X10*6/uL Hgb 10.3 L (14.0-18.0) g/dl Hct 33.7 L (42-52) % MCV 90.1 (80-98) fL MCH 27.5 (27.0-33.0) pg MCHC 30.6 L (31.0-36.0) g/dl RDW 15.7 (11.0-16.0) % Plt Count 189 (160-400) X10*3/uL MPV 9.7 (9.4-12.4) fL Immature Gran % (Auto) 0.2 (0.0-0.4) % Neut % (Auto) 59.1 (45-73) % Lymph % (Auto) 20.9 (20-40) % [place] % (Auto) 12.0 H (2-11) % Eos % (Auto) 7.4 H (0-4) % Baso % (Auto) 0.4 (0-2) % Lymph # (Auto) 1.2 (1.2-4.9) X10*3/uL [place] # (Auto) 0.7 (0.1-1.2) X10*3/uL Eos # (Auto) 0.4 (0.0-0.4) X10*3/uL Baso # (Auto) 0.0 (0.0-0.2) X10*3/uL Abs Immat Gran (auto) 0.01 (0.00-0.03) X10*3/uL Absolute Neuts (auto) 3.3 (2.0-8.3) X10*3/uL Absolute Nucleated RBC 0.000 (0.0-0.012) X10*3/uL Nucleated RBC % (auto) 0.0 (0.0-0.2) /100WBC ESR (0-15) MM/HR PT (10.8-13.0) SEC INR (0.9-1.1) APTT (24.1-38.0) SEC Sodium (135-145) mmol/L Potassium (3.3-5.1) mmol/l Chloride (96-108) mmol/L Carbon Dioxide (22-29) mmol/L Anion Gap (12-20) BUN (9-16) mg/dL Creatinine (0.5-1.4) mg/dL Estim Creat Clear Calc Estimated GFR Random Glucose (60-115) mg/dL Lactic Acid (0.5-2.0) mmol/L Calcium (8.4-10.2) mg/dL Magnesium (1.6-2.6) mg/dL Total Bilirubin (0.0-1.0) mg/dL Direct Bilirubin (0.0-0.5) mg/dL AST (5-37) U/L ALT (0-40) U/L Alkaline Phosphatase (39-117) U/L Troponin I High Sens (<3.5-35.0) ng/L C-Reactive Protein (< or = 0.50) mg/dL B-Natriuretic Peptide (<100) pg/mL Total Protein (6.5-8.0) g/dL Albumin (3.5-5.0) g/dL COVID-19 (ELPIDIO) (Negative) COVID-19 Clin Com <BRIAN Abdi - Last Filed: 07/04/20 17:06> Lab Results 07/04/20 07/04/2021 Range/Units 13:34 13:58 13:58 WBC (4.8-10.8) X10*3/uL RBC (4.60-5.80) X10*6/uL Hgb (14.0-18.0) g/dl Hct (42-52) % MCV (80-98) fL MCH (27.0-33.0) pg MCHC (31.0-36.0) g/dl RDW (11.0-16.0) % Plt Count (160-400) X10*3/uL MPV (9.4-12.4) fL Immature Gran % (Auto) (0.0-0.4) % Neut % (Auto) (45-73) % Lymph % (Auto) (20-40) % [place] % (Auto) (2-11) % Eos % (Auto) (0-4) % Baso % (Auto) (0-2) % Lymph # (Auto) (1.2-4.9) X10*3/uL [place] # (Auto) (0.1-1.2) X10*3/uL Eos # (Auto) (0.0-0.4) X10*3/uL Baso # (Auto) (0.0-0.2) X10*3/uL Abs Immat Gran (auto) (0.00-0.03) X10*3/uL Absolute Neuts (auto) (2.0-8.3) X10*3/uL Absolute Nucleated RBC (0.0-0.012) X10*3/uL Nucleated RBC % (auto) (0.0-0.2) /100WBC ESR (0-15) MM/HR PT 14.6 H D (10.8-13.0) SEC INR 1.2 H (0.9-1.1) APTT 46.2 H (24.1-38.0) SEC Sodium 140 (135-145) mmol/L Potassium 4.9 (3.3-5.1) mmol/l Chloride 102 (96-108) mmol/L Carbon Dioxide 31 H (22-29) mmol/L Anion Gap 12 (12-20) BUN 27 H (9-16) mg/dL Creatinine 1.30 (0.5-1.4) mg/dL Estim Creat Clear Calc 50.4 Estimated GFR 53 Random Glucose 156 H (60-115) mg/dL Lactic Acid (0.5-2.0) mmol/L Calcium 9.0 (8.4-10.2) mg/dL Magnesium 2.3 (1.6-2.6) mg/dL Total Bilirubin 1.0 (0.0-1.0) mg/dL Direct Bilirubin 0.4 (0.0-0.5) mg/dL AST 14 D (5-37) U/L ALT 9 (0-40) U/L Alkaline Phosphatase 69 (39-117) U/L Troponin I High Sens (<3.5-35.0) ng/L C-Reactive Protein 2.39 H (< or = 0.50) mg/dL B-Natriuretic Peptide (<100) pg/mL Total Protein 7.5 (6.5-8.0) g/dL Albumin 3.9 (3.5-5.0) g/dL COVID-19 (ELPIDIO) Negative (Negative) COVID-19 Clin Com See Note 07/04/20 07/04/20 07/04/20 Range/Units 13:59 13:59 13:59 WBC (4.8-10.8) X10*3/uL RBC (4.60-5.80) X10*6/uL Hgb (14.0-18.0) g/dl Hct (42-52) % MCV (80-98) fL MCH (27.0-33.0) pg MCHC (31.0-36.0) g/dl RDW (11.0-16.0) % Plt Count (160-400) X10*3/uL MPV (9.4-12.4) fL Immature Gran % (Auto) (0.0-0.4) % Neut % (Auto) (45-73) % Lymph % (Auto) (20-40) % [place] % (Auto) (2-11) % Eos % (Auto) (0-4) % Baso % (Auto) (0-2) % Lymph # (Auto) (1.2-4.9) X10*3/uL [place] # (Auto) (0.1-1.2) X10*3/uL Eos # (Auto) (0.0-0.4) X10*3/uL Baso # (Auto) (0.0-0.2) X10*3/uL Abs Immat Gran (auto) (0.00-0.03) X10*3/uL Absolute Neuts (auto) (2.0-8.3) X10*3/uL Absolute Nucleated RBC (0.0-0.012) X10*3/uL Nucleated RBC % (auto) (0.0-0.2) /100WBC ESR 54 H (0-15) MM/HR PT (10.8-13.0) SEC INR (0.9-1.1) APTT (24.1-38.0) SEC Sodium (135-145) mmol/L Potassium (3.3-5.1) mmol/l Chloride (96-108) mmol/L Carbon Dioxide (22-29) mmol/L Anion Gap (12-20) BUN (9-16) mg/dL Creatinine (0.5-1.4) mg/dL Estim Creat Clear Calc Estimated GFR Random Glucose (60-115) mg/dL Lactic Acid 0.7 (0.5-2.0) mmol/L Calcium (8.4-10.2) mg/dL Magnesium (1.6-2.6) mg/dL Total Bilirubin (0.0-1.0) mg/dL Direct Bilirubin (0.0-0.5) mg/dL AST (5-37) U/L ALT (0-40) U/L Alkaline Phosphatase (39-117) U/L Troponin I High Sens 6.1 (<3.5-35.0) ng/L C-Reactive Protein (< or = 0.50) mg/dL B-Natriuretic Peptide 102 H (<100) pg/mL Total Protein (6.5-8.0) g/dL Albumin (3.5-5.0) g/dL COVID-19 (ELPIDIO) (Negative) COVID-19 Clin Com 07/04/20 Range/Units 14:00 WBC 5.7 (4.8-10.8) X10*3/uL RBC 3.74 L (4.60-5.80) X10*6/uL Hgb 10.3 L (14.0-18.0) g/dl Hct 33.7 L (42-52) % MCV 90.1 (80-98) fL MCH 27.5 (27.0-33.0) pg MCHC 30.6 L (31.0-36.0) g/dl RDW 15.7 (11.0-16.0) % Plt Count 189 (160-400) X10*3/uL MPV 9.7 (9.4-12.4) fL Immature Gran % (Auto) 0.2 (0.0-0.4) % Neut % (Auto) 59.1 (45-73) % Lymph % (Auto) 20.9 (20-40) % [place] % (Auto) 12.0 H (2-11) % Eos % (Auto) 7.4 H (0-4) % Baso % (Auto) 0.4 (0-2) % Lymph # (Auto) 1.2 (1.2-4.9) X10*3/uL [place] # (Auto) 0.7 (0.1-1.2) X10*3/uL Eos # (Auto) 0.4 (0.0-0.4) X10*3/uL Baso # (Auto) 0.0 (0.0-0.2) X10*3/uL Abs Immat Gran (auto) 0.01 (0.00-0.03) X10*3/uL Absolute Neuts (auto) 3.3 (2.0-8.3) X10*3/uL Absolute Nucleated RBC 0.000 (0.0-0.012) X10*3/uL Nucleated RBC % (auto) 0.0 (0.0-0.2) /100WBC ESR (0-15) MM/HR PT (10.8-13.0) SEC INR (0.9-1.1) APTT (24.1-38.0) SEC Sodium (135-145) mmol/L Potassium (3.3-5.1) mmol/l Chloride (96-108) mmol/L Carbon Dioxide (22-29) mmol/L Anion Gap (12-20) BUN (9-16) mg/dL Creatinine (0.5-1.4) mg/dL Estim Creat Clear Calc Estimated GFR Random Glucose (60-115) mg/dL Lactic Acid (0.5-2.0) mmol/L Calcium (8.4-10.2) mg/dL Magnesium (1.6-2.6) mg/dL Total Bilirubin (0.0-1.0) mg/dL Direct Bilirubin (0.0-0.5) mg/dL AST (5-37) U/L ALT (0-40) U/L Alkaline Phosphatase (39-117) U/L Troponin I High Sens (<3.5-35.0) ng/L C-Reactive Protein (< or = 0.50) mg/dL B-Natriuretic Peptide (<100) pg/mL Total Protein (6.5-8.0) g/dL Albumin (3.5-5.0) g/dL COVID-19 (ELPIDIO) (Negative) COVID-19 Clin Com <Lee Uriostegui MD - Last Filed: 07/11/20 09:24> ECG Data Attestation: I personally reviewed and interpreted this ECG as follows: <BRIAN Abdi - Last Filed: 07/04/20 17:06> Prior ECG tracings: available for review <BRIAN Abdi - Last Filed: 07/04/20 17:06> Interpretation: atrial fibrillation, HR 69 bpm, incomplete RBBB which is new from prior, no ST elevations, Qtc 458 <BRIAN Abdi - Last Filed: 07/04/20 17:06> Critical Care Time Critical Care Time Critical Care Time: Yes <BRIAN Abdi - Last Filed: 07/04/20 17:06> Total Critical Care Time: 35 <BRIAN Abdi - Last Filed: 07/04/20 17:06> Attestation: I attest to the time caring for this patient with acute hypoxic respiratory failure requiring oxygen and IV lasix. Time spent reviewing records, coordinating care and frequent bedside reassessments of pulmonary and cardiovascular status. <BRIAN Abdi - Last Filed: 07/04/20 17:06> Discharge Plan Discharge Clinical Impression: Acute respiratory failure with hypoxia Cellulitis Qualifiers: Site of cellulitis: extremity Site of cellulitis of extremity: lower extremity Laterality: left Qualified Code(s): L03.116 - Cellulitis of left lower limb Volume overload Qualifiers: Hypervolemia type: unspecified Qualified Code(s): E87.70 - Fluid overload, unspecified <BRIAN Abdi - Last Filed: 07/04/20 17:06> Patient Disposition: Admitted As Inpatient <BRIAN Abdi - Last Filed: 07/04/20 17:06> Interventions: Admission Worksheet (ED) Last Done: 07/05/20 00:14 <BRIAN Abdi - Last Filed: 07/04/20 17:06> Discharge Date/Time: 07/04/20 22:00 <BRIAN Abdi - Last Filed: 07/04/20 17:06>
--- NOTE | 2020-07-04 13:05 | XR_ITS ---
EXAMINATION: XR CHEST CLINICAL INFORMATION: Shortness of breath COMPARISON: Previous chest x-ray most recent March 2020 TECHNIQUE: Frontal view of the chest was obtained. FINDINGS: The cardiac silhouette is enlarged but stable. Hilar and mediastinal contours are unremarkable. The lungs are clear. There is no pleural effusion or pneumothorax. Bony structures are unremarkable. XR/XR chest 1V IMPRESSION: Stable enlargement of the cardiac silhouette. No evidence for acute disease in the chest.
--- NOTE | 2020-07-04 13:05 | ECG_ITS ---
Test Reason : SHORTNESS OF BREATH Blood Pressure : / mmHG Vent. Rate : 069 BPM Atrial Rate : 087 BPM P-R Int : 000 ms QRS Dur : 096 ms QT Int : 428 ms P-R-T Axes : 000 049 046 degrees QTc Int : 458 ms Atrial fibrillation Incomplete right bundle branch block Abnormal ECG When compared with ECG of 28-MAR-2020 12:19, No significant change was found Referred By: Bertha Case Electronically Signed By:Chuck Garcia
--- NOTE | 2020-07-04 13:39 | US_ITS ---
EXAMINATION: US VENOUS ULTRASOUND WITH DOPPLER LOWER EXTREMITY, BILATERAL CLINICAL INFORMATION: Bilateral leg COMPARISON: None TECHNIQUE: Ultrasound of the deep veins is performed from the hip to the calf with compression sonography and color and pulse Doppler assessment. Spectral analysis with color-flow imaging is performed. FINDINGS: The exam is limited due to patient's elevated whole leg up and significant skin thickening and edema. RIGHT: There is normal venous compression and respiratory variation and augmented flow. The visualized common femoral vein, superficial femoral vein, profunda femoral vein, popliteal vein, and the trifurcation region shows no evidence of deep venous thrombosis. There is no significant popliteal fossa cyst. Incidental finding of right groin lymph nodes measuring 4.1 x 0.8 x 2.2 cm and 3.9 x 1.0 x 1.4 cm. LEFT: There is normal venous compression and respiratory variation and augmented flow. The visualized common femoral vein, superficial femoral vein, profunda femoral vein, popliteal vein, and the trifurcation region shows no evidence of deep venous thrombosis. There is no significant popliteal fossa cyst. There is insular finding of left groin lymph node measuring 4.1 x 1.0 x 2.1 cm If the patient's symptoms persist, followup ultrasound in 5 days 7 days might be of value to exclude proximal propagation from a non-visualized calf vein. US/US venous duplex LE BI IMPRESSION: No DVT demonstrated in bilateral lower extremities. There is bilateral small groin lymph nodes measuring 4.1 cm on both sides.
[2020-07-04 14:01] LABS: COVID-19 Test Negative (Negative); IDNOW Serial# 9DD0AD1C
[2020-07-04 14:06] LABS: MANUAL DIFF FLAG NO
[2020-07-04 14:09] LABS: Basophils Percent Auto 0.4 % (0-2); Eosinophils Absolute Auto 0.4 X10*3/uL (0.0-0.4); Eosinophils Percent Auto 7.4 % (0-4); Hematocrit 33.7 % (42-52); Hemoglobin 10.3 g/dl (14.0-18.0); Imm Gran Abs Auto 0.01 X10*3/uL (0.00-0.03); Imm Gran Pct Auto 0.2 % (0.0-0.4); Lymphocytes Absolute Auto 1.2 X10*3/uL (1.2-4.9); Lymphocytes Percent Auto 20.9 % (20-40); Mean Corpuscular HGB Conc 30.6 g/dl (31.0-36.0); Mean Corpuscular Hemoglobin 27.5 pg (27.0-33.0); Mean Corpuscular Volume 90.1 fL (80-98); Mean Platelet Volume 9.7 fL (9.4-12.4); Monocytes Absolute Auto 0.7 X10*3/uL (0.1-1.2); Neutrophils Absolute Auto 3.3 X10*3/uL (2.0-8.3); Neutrophils Percent Auto 59.1 % (45-73); Platelet Count 189 X10*3/uL (160-400); Red Blood Count 3.74 X10*6/uL (4.60-5.80); Red Cell Distribution Width 15.7 % (11.0-16.0); White Blood Count 5.7 X10*3/uL (4.8-10.8)
[2020-07-04 14:17] LABS: INTERNATIONAL NORM RATIO 1.2 (0.9-1.1); Prothrombin Time 14.6 SEC (10.8-13.0)
[2020-07-04 14:20] LABS: Partial Thromboplastin Time 46.2 SEC (24.1-38.0)
[2020-07-04 14:27] LABS: Lactic Acid 0.7 mmol/L (0.5-2.0)
[2020-07-04 14:31] LABS: Alanine Aminotransferase 9 U/L (0-40); Albumin Level 3.9 g/dL (3.5-5.0); Alkaline Phosphatase 69 U/L (39-117); Anion Gap 12 (12-20); Aspartate Amino Transferase 14 U/L (5-37); Bilirubin Direct 0.4 mg/dL (0.0-0.5); Blood Urea Nitrogen 27 mg/dL (9-16); C Reactive Protein 2.39 mg/dL (< or = 0.50); Carbon Dioxide 31 mmol/L (22-29); Chloride 102 mmol/L (96-108); Creatinine Clr Calc Pharmacy 50.4; Estimated Glomerular Filt Rate 53; Glucose Random 156 mg/dL (60-115); Magnesium 2.3 mg/dL (1.6-2.6); Potassium 4.9 mmol/l (3.3-5.1); Sodium 140 mmol/L (135-145); Total Protein 7.5 g/dL (6.5-8.0)
[2020-07-04] MEDS: Piperacillin Sodium/Tazobactam 3.375 GM in 0.9 % Sodium Chloride 50 ML IV (14:31)
[2020-07-04 14:42] LABS: B Type Natriuretic Peptide 102 pg/mL (<100); Troponin-I High Sensitivity 6.1 ng/L (<3.5-35.0)
[2020-07-04 14:55] LABS: Erythrocyte Sedimentation Rate 54 MM/HR (0-15)
--- NOTE | 2020-07-04 16:00 | CT_ITS ---
EXAMINATION: CT CHEST WITHOUT CONTRAST CLINICAL INFORMATION: Hypoxia, crackles and shortness of breath COMPARISON: Previous chest CT May 2020 and chest x-rays most recent from earlier the same day TECHNIQUE: Multidetector volumetric CT imaging of the chest was done. Axial MIP volume rendering provided. Sagittal and coronal reformatted images were obtained. This CT examination was performed using dose optimization techniques as appropriate, variously including the following: *Automated exposure control *Adjustment of mA and/or kV according to patient size (this includes techniques or standardized protocols for targeted exams where dose is matched to indication/reason for exam; i.e. 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 There is chronic left apical pleural and parenchymal scarring. There is left upper lobe volume loss. There is abnormal parenchymal density seen in the peripheral or subpleural posterior segment of the right upper lobe near the major fissure that is stable. A similar of abnormal parenchymal density are linear scarring or subsegmental atelectasis in the more lateral right upper lobe that is stable. There is question of a new increased bronchial wall thickening seen in the upper lobes, right greater than left. There is patchy areas of increased parenchymal attenuation seen in the upper lobes and increased interstitial gonzalez thinning. Appearance is questionable for changes from airways disease versus possible mild pulmonary edema. There are calcified and noncalcified pulmonary nodules that are stable. Largest noncalcified pulmonary nodules in the right lower lobe axial image 342 series 5 and left lower lobe axial image 371 series 5. MEDIASTINUM: The heart is enlarged. The pulmonary arteries are prominent, main pulmonary artery measuring 3.1 cm. The thoracic aorta is normal in caliber. There is no pericardial effusion. There are small mediastinal lymph nodes. PLEURA: There is no pleural effusion. No pleural mass or thickening. AXILLA: No lymphadenopathy. UPPER ABDOMEN: There are gallstones in the gallbladder. The liver is slightly lobular in contour questionable for mild cirrhosis. OSSEOUS STRUCTURES: There are degenerative changes of the spine. CT/CT chest wo con IMPRESSION: Very limited exam due to marked motion artifact. There is question of new airways disease/bronchial wall thickening in the bilateral upper lobes. There are also scattered areas of increased attenuation in the upper lobes and question some increased interstitial markings. This may be related to airways disease. This is difficult to exclude mild pulmonary edema. Stable enlargement of the heart. Probably stable calcified and noncalcified pulmonary nodules.
--- NOTE | 2020-07-04 16:30 | PC.NURSE ---
Shortly after vanco started infusing pt c/o sudden onset SOB. Sitting up on stretcher stating I can't breathe. O2 sat to low 80's. Pt placed on 4L O2 and O2 sat back up to 93%. Crackles throughout lungs, RR 24. Called PA to bedside for re-eval. Vanco paused at this time. No redness or rash noted, pt has tolerated vanco in the past without difficulty. CTA ordered, will reassess resp status.
--- NOTE | 2020-07-04 17:06 | P.HPHOSP_ITS ---
History of Present Illness Date of Service: 07/04/20 Chief Complaint: Shortness of breath, left lower extremity swelling and erythema An 84 years old male with PMH of AFib, CMP, COPD, diabetes among others who presented to the hospital complaining of worsening shortness of breath and left lower extremity swelling and erythema. The patient report his breathing has been okay until this morning when he started to feel shortness of breath upon resting and watching the TV. He decided to come to the hospital as his right lower extremity became more swollen and red associated with pain which failed outpatient antibiotics of doxycycline and Augmentin. In the emergency he was started on IV antibiotic but developed hypoxemia with oxygen level dropping below 90 requiring oxygen supplement. Scan of the chest was consistent with pulmonary edema. Admitted for further evaluation and treatment. Review of Systems Review of Systems: No fever, chills or weakness No chest pain, palpitation , increased edema in left lower extremity Reporting shortness of breath but no coughing No abdominal pain, nausea or vomiting No urinary symptoms No any rash or wounds PMFSH Medical History Afib Alcoholic cardiomyopathy BPH (benign prostatic hyperplasia) COPD (chronic obstructive pulmonary disease) Diabetes Hyperlipidemia Prostate cancer PVD (peripheral vascular disease) Family History Mother No problems noted. Father No problems noted. Son No problems noted. Son No problems noted. Son No problems noted. Son No problems noted. Daughter No problems noted. Daughter No problems noted. Daughter No problems noted. Surgical History Hx of BKA Social History Housing: Apartment Alcohol intake: never Smoking Status: Never smoker Use of substances other than those prescribed or required for medical reasons: No Advance Directives: Yes Advance Directives on File: Yes Advance Directives Date on File: 03/28/20 service: No Current occupational status: disabled Meds Allergies Allergy/AdvReac Type Severity Reaction Status Date / Time bee pollen [BEE STINGS] Allergy Severe ANAPHYLAXIS Verified 07/04/20 13:06 doxycycline [DOXYCYCLINE] Allergy Unknown ? ALLERGY Verified 07/04/20 13:06 PER [employer] Allergy Mild ITCHING Uncoded 03/28/20 19:48 bee venom Allergy Unknown unspecified Uncoded 03/28/20 19:48 sardines Allergy Unknown itching Uncoded 03/28/20 19:48 Home Medications Medication Instructions Recorded Confirmed Type Eliquis 5 mg PO BID 03/28/20 03/28/20 History albuterol sulfate 2 puff PO Q4-6H PRN 03/28/20 03/28/20 History amlodipine 2.5 mg PO QAM 03/28/20 03/28/20 History ascorbic acid (vitamin C) [Vitamin 500 mg PO BID 03/28/20 03/28/20 History C] atenolol 25 mg PO QAM 03/28/20 03/28/20 History atorvastatin 20 mg PO QAM 03/28/20 03/28/20 History cholecalciferol (vitamin D3) 25 mcg PO QAM 03/28/20 03/28/20 History ferrous sulfate 325 mg PO BID 03/28/20 03/28/20 History fluoxetine 20 mg PO QAM 03/28/20 03/28/20 History gabapentin 300 mg PO BID@0800,1400 03/28/20 03/28/20 History gabapentin 600 mg PO BEDTIME 03/28/20 03/28/20 History melatonin 5 mg PO BEDTIME 03/28/20 03/28/20 History metformin 500 mg PO DAILY@1700 03/28/20 03/28/20 History potassium chloride 20 meq PO BEDTIME 03/28/20 03/28/20 History risperidone 0.25 mg PO BEDTIME 03/28/20 03/28/20 History tamsulosin 0.4 mg PO BEDTIME 03/28/20 03/28/20 History Physical Exam Vital Signs and Narrative: Vital Signs: Last Vital Signs Temp 96.4 F L 07/04/20 13:06 Pulse 70 07/04/20 16:32 Resp 20 07/04/20 16:32 BP 181/82 H 07/04/20 16:32 Pulse Ox 100 07/04/20 16:32 Body Mass Index 30.9 Const: Other: Constitutional : Alert, oriented, not in distress Neck : Normal inspection, Supple Cardiovascular : RRR, S1 S2, right leg BKA, left lower extremity +2 edema Respiratory : For bilateral air entry, bilateral crackles above may chest level, no wheezes or rhonchi Gastrointestinal: soft, lax, Normal bowel sounds, Non tender Skin : Warm/Dry, edema at this time with mild erythema, left lower extremity erythema below the knee with no warmth or tenderness. Neurological : Alert & oriented x3, No focal deficit Results Labs CBC and Chem 7: 07/04/20 14:00 07/04/20 13:58 Labs: Laboratory Results - last 24 hr 07/04/20 07/04/20 07/04/20 13:34 13:58 13:58 MCV MCH MCHC RDW Plt Count MPV Immature Gran % (Auto) Neut % (Auto) Lymph % (Auto) [place] % (Auto) Eos % (Auto) Baso % (Auto) Lymph # (Auto) [place] # (Auto) Eos # (Auto) Baso # (Auto) Abs Immat Gran (auto) Absolute Neuts (auto) Absolute Nucleated RBC Nucleated RBC % (auto) ESR PT 14.6 H D INR 1.2 H APTT 46.2 H Anion Gap 12 Estim Creat Clear Calc 50.4 Estimated GFR 53 Random Glucose 156 H Lactic Acid Calcium 9.0 Magnesium 2.3 Total Bilirubin 1.0 Direct Bilirubin 0.4 AST 14 D ALT 9 Alkaline Phosphatase 69 Troponin I High Sens C-Reactive Protein 2.39 H B-Natriuretic Peptide Total Protein 7.5 Albumin 3.9 COVID-19 ([facility]) Negative COVID-19 Clin Com See Note 07/04/20 07/04/20 07/04/20 13:59 13:59 13:59 MCV MCH MCHC RDW Plt Count MPV Immature Gran % (Auto) Neut % (Auto) Lymph % (Auto) [place] % (Auto) Eos % (Auto) Baso % (Auto) Lymph # (Auto) [place] # (Auto) Eos # (Auto) Baso # (Auto) Abs Immat Gran (auto) Absolute Neuts (auto) Absolute Nucleated RBC Nucleated RBC % (auto) ESR 54 H PT INR APTT Anion Gap Estim Creat Clear Calc Estimated GFR Random Glucose Lactic Acid 0.7 Calcium Magnesium Total Bilirubin Direct Bilirubin AST ALT Alkaline Phosphatase Troponin I High Sens 6.1 C-Reactive Protein B-Natriuretic Peptide 102 H Total Protein Albumin COVID-19 ([facility]) COVID-19 Clin Com 07/04/20 14:00 MCV 90.1 MCH 27.5 MCHC 30.6 L RDW 15.7 Plt Count 189 MPV 9.7 Immature Gran % (Auto) 0.2 Neut % (Auto) 59.1 Lymph % (Auto) 20.9 [place] % (Auto) 12.0 H Eos % (Auto) 7.4 H Baso % (Auto) 0.4 Lymph # (Auto) 1.2 [place] # (Auto) 0.7 Eos # (Auto) 0.4 Baso # (Auto) 0.0 Abs Immat Gran (auto) 0.01 Absolute Neuts (auto) 3.3 Absolute Nucleated RBC 0.000 Nucleated RBC % (auto) 0.0 ESR PT INR APTT Anion Gap Estim Creat Clear Calc Estimated GFR Random Glucose Lactic Acid Calcium Magnesium Total Bilirubin Direct Bilirubin AST ALT Alkaline Phosphatase Troponin I High Sens C-Reactive Protein B-Natriuretic Peptide Total Protein Albumin COVID-19 ([facility]) COVID-19 Clin Com Imaging Radiologist's Impressions: Impressions Chest X-Ray 07/04/20 13:05 IMPRESSION: Stable enlargement of the cardiac silhouette. No evidence for acute disease in the chest. Venous Duplex 07/04/20 13:39 IMPRESSION: No DVT demonstrated in bilateral lower extremities. There is bilateral small groin lymph nodes measuring 4.1 cm on both sides. Assessment and Plan (1) Acute respiratory failure with hypoxia: Status: Acute (2) Right leg swelling: Status: Acute (3) Stasis dermatitis: Status: Acute (4) Volume overload: Qualifiers: Hypervolemia type: unspecified Qualified Code(s): E87.70 - Fluid overload, unspecified Status: Acute (5) Diabetes: Status: Acute (6) Pulmonary edema: Status: Acute An 84 years old male with PMH of AFib, CMP, COPD, diabetes among others who presented to the hospital complaining of worsening shortness of breath and left lower extremity swelling and erythema. Acute hypoxic respiratory failure Pulmonary edema Secondary to CHF To check echo in the morning Start IV Lasix b.i.d. Monitor intake and output follow BMP Right lower extremity erythema Seems secondary to stasis dermatitis Keep leg elevated Continue IV doxycycline To get ID evaluation Diabetes type 2 Hold metformin SSI diabetic diet DVT PPX Eliquis
[2020-07-04] MEDS: Furosemide 40 MG/4 ML VIAL IVPUSH (17:47)
[2020-07-04] MEDS: Tamsulosin HCL 0.4 MG CAPSULE PO (17:47)
[2020-07-04 18:01] LABS: Glucose, Whole Blood 138 mg/dL (60-115)
[2020-07-04 18:03] LABS: Glucose Urine UA NEG (NEG); Leukocyte Esterase Urine NEG (NEG); Nitrite Urine NEG (NEG); PH 5.5 (5.0-8.0); Urine Blood NEG (NEG); Urine Ketones NEG (NEG); Urine Protein NEG (NEG-TRACE)
[2020-07-04 18:05] LABS: Appearance Urine CLEAR; Color Urine STRAW
--- NOTE | 2020-07-04 19:27 | PC.NURSE ---
REPORT TAKEN FROM JUHI SALAS, FIRST CONTACT WITH PT. RESTING IN BED, EYES CLOSED, SKIN PWD RESPIRATIONS EVEN UNLABORED. AWAITING BED ASSIGNMENT FOR ADMISSION. AWARE OF PLAN OF CARE. WILL CONTINUE TO MONITOR.
[2020-07-04 21:20] LABS: Glucose, Whole Blood 132 mg/dL (60-115)
[2020-07-04] MEDS: Apixaban 5 MG TABLET PO (22:04)
[2020-07-04] MEDS: 0.9 % Sodium Chloride Flush 3 ML SYRINGE IVFLUSH (23:49)
[2020-07-05] VITALS (8 sets, daily range): BP systolic 138–169; BP diastolic 64–81; PULSE 63–86; RESP 18–20; TEMP 36.5–37.3; O2SAT 95–100; BMI 30.9
[2020-07-05 06:45] LABS: Hematocrit 35.2 % (42-52); Hemoglobin 10.7 g/dl (14.0-18.0); Mean Corpuscular HGB Conc 30.4 g/dl (31.0-36.0); Mean Corpuscular Hemoglobin 27.4 pg (27.0-33.0); Mean Platelet Volume 10.4 fL (9.4-12.4); Platelet Count 218 X10*3/uL (160-400); Red Blood Count 3.91 X10*6/uL (4.60-5.80); Red Cell Distribution Width 15.5 % (11.0-16.0); White Blood Count 6.2 X10*3/uL (4.8-10.8)
[2020-07-05 07:04] LABS: Anion Gap 20 (12-20); Blood Urea Nitrogen 27 mg/dL (9-16); Carbon Dioxide 28 mmol/L (22-29); Chloride 101 mmol/L (96-108); Creatinine Clr Calc Pharmacy 55.1; Estimated Glomerular Filt Rate 58; Glucose Random 111 mg/dL (60-115); Potassium 4.5 mmol/l (3.3-5.1); Sodium 144 mmol/L (135-145)
[2020-07-05 07:11] LABS: Glucose, Whole Blood 104 mg/dL (60-115)
[2020-07-05 07:27] LABS: B Type Natriuretic Peptide 189 pg/mL (<100)
--- NOTE | 2020-07-05 08:00 | CA_ITS ---
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 Study Quality: Fair Conclusions: - Normal biventricular function. - The left atrium is moderately dilated. The right atrium is moderately dilated. - Moderately elevated right atrial pressure. Mild pulmonary hypertension is present. - In some views cannot rule out a trace posterior pericardial effusion. Findings Left Ventricle Normal left ventricular size, thickness, systolic function, and wall motion. The visually estimated ejection fraction is between 60-65%. Diastolic function is indeterminate on the basis of available data. Right Ventricle Normal right ventricular cavity size and systolic function. Atria The left atrium is moderately dilated. The right atrium is moderately dilated. Aortic Valve There is a normal trileaflet aortic valve. There is mild calcification of the aortic valve. There is no aortic valve stenosis. There is no aortic valve regurgitation. Mitral Valve There is moderate mitral annular calcification. There is trace mitral valve regurgitation. Pulmonic Valve The pulmonic valve was not well visualized. Tricuspid Valve Normal tricuspid valve structure and function. There is trace tricuspid valve regurgitation. Moderately elevated right atrial pressure. Mild pulmonary hypertension is present. Great Vessels The pulmonary artery was not well visualized. There is mild dilatation of the ascending aorta. Venous The inferior vena cava is dilated and collapses less than 50% with inspiration. Pericardium/Pleural In some views cannot rule out a trace posterior pericardial effusion. Prior Study Comparison Changes noted compared to prior study dated: 09/16/2018. Cannot rule out trace posterior pericardial effusion in some views. Measurements 2D Linear Measurements IVSd: 0.95 0.6-0.9/0.6-1.0 cm LVIDd: 4.68 3.9-5.3/4.2-5.9 cm LVIDd Index: 2.18 2.4-3.2/2.2-3.1 cm/m2 LVIDs: 2.77 2.0-3.6 cm LVPWd: 1.05 0.7-1.1 cm Ao Root: 3.90 2.1-3.5 cm LA Diam: 4.00 2.7-3.8/3.0-4.0 cm LAIDs Index: 1.86 1.5-2.3 cm/m2 LV Mass: 203.82 67-162/88-224 g LV Mass Index: 94.80 43-95/49-115 g/m2 LVOT Diam: 2.20 3.0+(-)1.3 cm Aortic Valve AoV Pk Jayesh: 1.25 AoV Mn Jayesh: 0.79 AoV VTI: 0.26 AoV Pk Grad: 6.00 Aov Mn Grad: 3.00 LATA Cont.VTI: 1.92 LVOT LVOT Pk Jayesh: 0.54 LVOT Mn Jayesh: 0.36 LVOT VTI: 0.13 LVOT Pk Grad: 1.00 LVOT Mn Grad: 1.00 LVOT Diam: 2.20 LVOT Area: 3.80 Tricuspid Valve TR Pk Jayesh: 2.84 TR Pk Grad: 32.00 RA Press: 8.00 RVSP: 40.00 Great Vessels Aorta Ao Root-2D: 3.90 2.0-3.7 cm Ao Asc: 3.50 2.1-3.4 cm Updated in Other Vendor System with Status of Final hCuck Garcia MD electronically signed on 07/05/2020 11:03:15 AM with status of Final
[2020-07-05] MEDS: Doxycycline Hyclate 100 MG in 0.9 % Sodium Chloride 250 ML 166.67 MG IV ×2 (09:05→21:32)
[2020-07-05] MEDS: 0.9 % Sodium Chloride Flush 3 ML SYRINGE IVFLUSH ×3 (09:06→21:33)
[2020-07-05] MEDS: Furosemide 40 MG/4 ML VIAL IVPUSH ×2 (09:08→21:32)
[2020-07-05] MEDS: Gabapentin 300 MG CAPSULE PO ×2 (09:11→15:41)
[2020-07-05] MEDS: Apixaban 5 MG TABLET PO ×2 (09:11→21:32)
[2020-07-05] MEDS: atenoloL 25 MG TABLET PO (09:11)
[2020-07-05] MEDS: amLODIPine Besylate 2.5 MG TABLET PO (09:16)
[2020-07-05] MEDS: Atorvastatin Calcium 20 MG TABLET PO (09:16)
[2020-07-05] MEDS: FLUoxetine HCl 20 MG CAPSULE PO (09:16)
--- NOTE | 2020-07-05 09:16 | MHC.CM.PN ---
CM met with Patient at bedside to address IMM and also spoke with Daughter/HCP/Magna. 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 Patient's goal is to return home and resume services and CM has initiated and will follow for dc planning. Patient has a walker and awaits his prosthetic. PCP is ANNA Barajas.
[2020-07-05] MEDS: traMADoL HCL 50 MG TABLET 25 MG PO (10:00)
[2020-07-05] MEDS: Acetaminophen 325 MG TABLET 650 MG PO ×2 (10:00→20:16)
[2020-07-05 11:06] LABS: Glucose, Whole Blood 118 mg/dL (60-115)
--- NOTE | 2020-07-05 11:59 | P.PNIM_ITS ---
Subjective Subjective Date of Service: 07/05/20 Review of Systems No fever, chills or weakness No chest pain, palpitation , increased edema in left lower extremity Reporting shortness of breath but no coughing No abdominal pain, nausea or vomiting No urinary symptoms No any rash or wounds Physical Exam Vital Signs: Vital Signs: Last Vital Signs Temp 98.0 F 07/05/20 11:04 Pulse 86 07/05/20 11:04 Resp 18 07/05/20 11:04 BP 156/70 H 07/05/20 11:04 Pulse Ox 98 07/05/20 11:04 Body Mass Index 30.9 Const: Other: Constitutional : Alert, oriented, not in distress Neck : Normal inspection, Supple Cardiovascular : RRR, S1 S2, right leg BKA, left lower extremity +1 edema Respiratory : For bilateral air entry, bilateral crackles above mid chest level, no wheezes or rhonchi Gastrointestinal: soft, lax, Normal bowel sounds, Non tender Skin : Warm/Dry, edema at this time with mild erythema, left lower extremity erythema below the knee with no warmth or tenderness. Neurological : Alert & oriented x3, No focal deficit Objective Data Current Medications Generic Name Dose Route Start Last Admin Trade Name Freq PRN Reason Stop Dose Admin Acetaminophen 650 mg 07/04/20 16:56 07/05/20 10:00 Acetaminophen 325 Mg Tablet PO 650 mg Q6H PRN Administration Pain, Mild (Pain Scale 1-3) Albuterol Sulfate 1.25 mg 07/04/20 17:02 Albuterol Sulfate (0.042%) 1.25 Mg/3 Ml Vial.Neb INHALE RQ4H PRN Shortness of Breath/Wheezing Amlodipine Besylate 2.5 mg 07/05/20 09:00 07/05/20 09:16 Amlodipine Besylate 2.5 Mg Tablet PO 2.5 mg DAILY BREE Administration Protocol Apixaban 5 mg 07/05/20 09:00 07/05/20 09:11 Apixaban 5 Mg Tablet PO 5 mg BID BREE Administration Atenolol 25 mg 07/05/20 09:00 07/05/20 09:11 Atenolol 25 Mg Tablet PO 25 mg DAILY BREE Administration Protocol Atorvastatin Calcium 20 mg 07/05/20 09:00 07/05/20 09:16 Atorvastatin Calcium 20 Mg Tablet PO 20 mg DAILY BREE Administration Fluoxetine HCl 20 mg 07/05/20 09:00 07/05/20 09:16 Fluoxetine Hcl 20 Mg Capsule PO 20 mg DAILY BREE Administration Furosemide 40 mg 07/05/20 09:00 07/05/20 09:08 Furosemide 40 Mg/4 Ml Vial IVPUSH 40 mg BID BREE Administration Protocol Gabapentin 300 mg 07/05/20 08:00 07/05/20 09:11 Gabapentin 300 Mg Capsule PO 300 mg BID@0800,1400 BREE Administration Gabapentin 600 mg 07/05/20 21:00 Gabapentin 600 Mg Tablet PO BEDTIME BREE Doxycycline Hyclate 100 mg/ 250 mls @ 166.67 mls/hr 07/05/20 08:00 07/05/20 09:05 Sodium Chloride IV 166.67 mls/hr Q12H BREE Administration Insulin Human Lispro 0 unit 07/04/20 21:00 07/05/20 09:06 Insulin Lispro 100 Unit/Ml 3 Ml Vial SUBCUT Not Given QIDACHS [facility] Protocol Ondansetron HCl 4 mg 07/04/20 16:56 Ondansetron Hcl 4 Mg/2 Ml Vial IVPUSH Q8H PRN Nausea and Vomiting Pharmacy Consult 1 each 07/04/20 13:24 Consult Rx Vancomycin Dosing MISCELLANE DAILY PRN Consult order Potassium Chloride 20 meq 07/05/20 21:00 Potassium Chloride Er 20 Meq Tab.Er.Prt PO BEDTIME BREE Risperidone 0.25 mg 07/05/20 21:00 Risperidone 0.25 Mg Tablet PO BEDTIME BREE Sodium Chloride 3 ml 07/05/20 00:00 07/05/20 09:06 0.9 % Sodium Chloride Flush 3 Ml Syringe IVFLUSH [address] [facility] Administration Labs CBC & Chem 7: 07/05/20 05:23 07/05/20 05:23 Assessment and Plan (1) Acute respiratory failure with hypoxia: Status: Acute (2) Right leg swelling: Status: Acute (3) Stasis dermatitis: Status: Acute (4) Volume overload: Status: Acute (5) Diabetes: Status: Acute (6) Pulmonary edema: Status: Acute Assessment and Plan: An 84 years old male with PMH of AFib, CMP, COPD, diabetes among others who presented to the hospital complaining of worsening shortness of breath and left lower extremity swelling and erythema. Acute hypoxic respiratory failure Pulmonary edema Secondary to CHF Pending echo Continue IV Lasix b.i.d. Wean oxygen down as tolerated Monitor intake and output follow BMP Right lower extremity erythema Seems secondary to stasis dermatitis Keep leg elevated To use emollients for lower extremities Continue IV doxycycline To get ID evaluation Diabetes type 2 Hold metformin SSI diabetic diet Hypertension Continue amlodipine, atenolol The atrial fibrillation Rate controlled Continue Eliquis DVT PPX Eliquis
[2020-07-05 16:11] LABS: Glucose, Whole Blood 123 mg/dL (60-115)
[2020-07-05 20:33] LABS: Glucose, Whole Blood 122 mg/dL (60-115)
[2020-07-05] MEDS: risperiDONE 0.25 MG TABLET PO (21:32)
[2020-07-05] MEDS: Potassium Chloride ER 20 MEQ TAB.ER.PRT PO (21:32)
[2020-07-05] MEDS: Gabapentin 600 MG TABLET PO (21:32)
[2020-07-06] MEDS: Morphine Sulfate 2 MG/ML CARTRIDGE 1 MG IVPUSH (01:16)
[2020-07-06 03:29] VITALS: BP 151/67; PULSE 72; RESP 20; TEMP 36.4; O2SAT 98
[2020-07-06 06:51] LABS: Anion Gap 14 (12-20); Blood Urea Nitrogen 31 mg/dL (9-16); Calcium 8.7 mg/dL (8.4-10.2); Carbon Dioxide 34 mmol/L (22-29); Chloride 101 mmol/L (96-108); Creatinine Clr Calc Pharmacy 55.6; Estimated Glomerular Filt Rate 59; Glucose Random 104 mg/dL (60-115); Potassium 4.5 mmol/l (3.3-5.1); Sodium 144 mmol/L (135-145)
[2020-07-06 07:50] VITALS: BP 142/79; PULSE 81; RESP 20; TEMP 36.4; O2SAT 97
[2020-07-06 08:16] LABS: Glucose, Whole Blood 98 mg/dL (60-115)
[2020-07-06] MEDS: Doxycycline Hyclate 100 MG in 0.9 % Sodium Chloride 250 ML 250 MG IV (08:53)
[2020-07-06] MEDS: oxyCODONE HCl Immed Release 5 MG TABLET PO ×2 (08:53→14:34)
[2020-07-06] MEDS: Apixaban 5 MG TABLET PO (08:55)
[2020-07-06] MEDS: Atorvastatin Calcium 20 MG TABLET PO (08:55)
[2020-07-06] MEDS: 0.9 % Sodium Chloride Flush 3 ML SYRINGE IVFLUSH ×2 (08:55→17:09)
[2020-07-06] MEDS: FLUoxetine HCl 20 MG CAPSULE PO (08:55)
[2020-07-06] MEDS: Furosemide 40 MG/4 ML VIAL IVPUSH ×2 (08:55→22:46)
[2020-07-06] MEDS: amLODIPine Besylate 2.5 MG TABLET PO (08:55)
[2020-07-06] MEDS: Gabapentin 300 MG CAPSULE PO ×2 (08:55→13:07)
[2020-07-06] MEDS: atenoloL 25 MG TABLET PO (08:55)
[2020-07-06 11:01] VITALS: BP 144/72; PULSE 86; RESP 20; TEMP 36.6; O2SAT 90
--- NOTE | 2020-07-06 11:42 | MHC.CM.PN ---
spoke with tc who has approved pt for rn vivits referal to hvns possible dc today
[2020-07-06 11:46] LABS: Glucose, Whole Blood 121 mg/dL (60-115)
--- NOTE | 2020-07-06 12:31 | P.CDIC_ITS ---
CDI Concurrent Query Service Date: 07/06/20 Documentation Clarification: Please clarify if you are treating a proba ble/suspected/likely or confirmed: Congestive heart failure Acute on chronic diastolic and/or systolic Congestive heart failure Please specify if known or other Provider Response: Acute on Chronic Diastolic and/or Systolic CHF PLEASE DO NOT DELETE/MODIFY EXISTING CONTENT Additional information is needed in order to code to the highest accuracy and appropriate Severity of Illness (SOI). Please clarify the information noted below in your progress notes and discharge summary. Risk Factors/Clinical Indicators/Treatments Left lower extremity swelling, erythema, fluid overload PN: Assessment/plan: Acute hypoxic respiratory failure, pulmonary edema 2nd to CHF. IV Lasix Echo ordered and performed Monitor I & O's follow BMP BNP 102 189 CDS: Vero Goddard CCS, CDIS Contact Number: [phone] Please Review the information above and exercise your independent professional judgment in responding to the query. If you concur, pleas document in the PROGRESS NOTES and DISCHARGE SUMMARY. If you do not agree with the query, please document in the query above. THIS QUERY IS PART OF THE PERMANENT MEDICAL RECORD
--- NOTE | 2020-07-06 12:42 | P.CNID_ITS ---
History of Present Illness Data of Consult Service Date: 07/06/20 Primary Care Provider: Alexa Barajas NP HPI Reason for consult: left leg redness He presents to hospital with increased left leg erythema posteriorly mostly over last week He denies fever or chilla No one else is ill He received Vancomycin in ER and developed shortness of breath He has no injury to leg Review of Systems Review of Systems: Yes all other systems are reviewed and are negative [facility] Past Medical History Medical History Afib Alcoholic cardiomyopathy BPH (benign prostatic hyperplasia) COPD (chronic obstructive pulmonary disease) Diabetes Hyperlipidemia Prostate cancer PVD (peripheral vascular disease) Family History Family History Mother No problems noted. Father No problems noted. Son No problems noted. Son No problems noted. Son No problems noted. Son No problems noted. Daughter No problems noted. Daughter No problems noted. Daughter No problems noted. Surgical History Surgical History Hx of BKA Social History Social History Household Members: None Housing: Apartment Do you presently have visiting nurse or other home services: Yes ([employer]) Alcohol intake: never Smoking Status: Never smoker Smoked in Last 30 Days: No Use of substances other than those prescribed or required for medical reasons: No Currently Displaying Signs/Symptoms of Drug Intoxication Withdrawal: No Have you been hit, kicked, punched, or otherwise hurt by someone within the past year? If so, by whom?: No Do you feel safe in your current relationship?: No Current Relationship Is there a partner from a previous relationship who is making you feel unsafe now?: No Are you made to feel afraid or neglected: No Spiritual Healthcare Practices: [employer] Advance Directives: Yes Advance Directives Information Provided: No Advance Directives on File: Yes Advance Directives Date on File: 03/28/20 Do you have thoughts of harming others: None Do you have a plan to hurt others: No Plan Recently lost weight without trying: No service: No Current occupational status: retired Meds Allergies Allergy/AdvReac Type Severity Reaction Status Date / Time bee pollen [BEE STINGS] Allergy Severe ANAPHYLAXIS Verified 07/04/20 13:06 doxycycline [DOXYCYCLINE] Allergy Unknown ? ALLERGY Verified 07/04/20 13:06 PER [employer] RE[employer]ENT[employer] [place] Allergy Mild ITCHING Uncoded 03/28/20 19:48 bee venom Allergy Unknown unspecified Uncoded 03/28/20 19:48 sardines Allergy Unknown itching Uncoded 03/28/20 19:48 Home Medications Medication Instructions Recorded Confirmed Type Eliquis 5 mg PO BID 03/28/20 07/04/20 History albuterol sulfate 2 puff PO Q4-6H PRN 03/28/20 07/04/20 History amlodipine 2.5 mg PO DAILY 03/28/20 07/04/20 History ascorbic acid (vitamin C) [Vitamin 500 mg PO BID 03/28/20 07/04/20 History C] atenolol 25 mg PO DAILY 03/28/20 07/04/20 History atorvastatin 20 mg PO QAM 03/28/20 07/04/20 History cholecalciferol (vitamin D3) 25 mcg PO DAILY 03/28/20 07/04/20 History ferrous sulfate 325 mg PO BID 03/28/20 07/04/20 History fluoxetine 20 mg PO DAILY 03/28/20 07/04/20 History gabapentin 300 mg PO BID@0800,1400 03/28/20 07/04/20 History gabapentin 600 mg PO BEDTIME 03/28/20 07/04/20 History melatonin 5 mg PO BEDTIME 03/28/20 07/04/20 History metformin 500 mg PO DAILY@1700 03/28/20 07/04/20 History potassium chloride 20 meq PO BEDTIME 03/28/20 07/04/20 History risperidone 0.25 mg PO BEDTIME 03/28/20 07/04/20 History tamsulosin 0.4 mg PO DAILY@1700 03/28/20 07/04/20 History ammonium lactate 1 appl TOPICAL DAILY 07/04/20 07/04/20 History furosemide 80 mg PO QAM 07/04/20 07/04/20 History Physical Exam 2 Vital Signs: Vital Signs: Last Vital Signs Temp 97.9 F 07/06/20 11:01 Pulse 86 07/06/20 11:01 Resp 20 07/06/20 11:01 BP 144/72 H 07/06/20 11:01 Pulse Ox 90 L 07/06/20 11:01 Body Mass Index 30.9 Const: General: cooperative HENMT: Head: Yes normal to inspection Mouth: Normal oral and palatal mucosa present Eyes: General: appearance normal, both eyes and all related structures Resp: Effort & Inspection: normal respiratory effort Cardio: Rate: regular rate Rhythm: regular rhythm GI: Inspection: Yes normal to inspection Palpation (GI): Soft to palpation and nontender : General: Yes no CVA tenderness Back/Spine/Pelvis: Back: no CVA tenderness Skin: General skin exam: no rashes or lesions noted Extrem: Other: stasis of right leg amputation site,also venous stasis changes with some mild erythema left leg Assessment and Plan (1) Stasis dermatitis: Problem details: He has stasis dermatitis of right stump and leg He has no tinea pedis but probably has some mild cellulitis on left as well Status: Acute IV Clindamycin for day or two and then po Doxycycline for a week (2) Right leg swelling: Status: Acute Results Labs CBC & Chem 7: 07/05/20 05:23 07/06/20 05:20 Labs: BMP 07/06/20 05:20 Sodium 144 Potassium 4.5 Chloride 101 Carbon Dioxide 34 H BUN 31 H Creatinine 1.18 Calcium 8.7 Microbiology Microbiology Results: Microbiology 07/04/20 13:57 Blood - Venous Blood Culture - Preliminary No growth after 24 hours. 07/04/20 13:34 Blood - Venous Blood Culture - Preliminary No growth after 24 hours.
[2020-07-06 12:48] VITALS: O2SAT 92
[2020-07-06] MEDS: Clindamycin Phosphate/D5W 600 MG/50 ML PIGGYBACK 100 MG IV (13:07)
--- NOTE | 2020-07-06 13:50 | P.PNIM_ITS ---
Subjective Subjective Date of Service: 07/06/20 Interval History: Seen in f/u for heat failure and cellulitis of leg Review of Systems No fever, chills or weakness No chest pain, palpitation , increased edema in left lower extremity Reporting shortness of breath but no coughing No abdominal pain, nausea or vomiting No urinary symptoms No any rash or wounds Physical Exam Vital Signs: Vital Signs: Last Vital Signs Temp 97.9 F 07/06/20 11:01 Pulse 86 07/06/20 11:01 Resp 20 07/06/20 11:01 BP 144/72 H 07/06/20 11:01 Pulse Ox 92 07/06/20 12:48 Body Mass Index 30.9 Const: Other: Constitutional : Alert, oriented, not in distress Neck : Normal inspection, Supple Cardiovascular : RRR, S1 S2, right leg BKA, left lower extremity +1 edema Respiratory : For bilateral air entry, bilateral crackles above mid chest level, no wheezes or rhonchi Gastrointestinal: soft, lax, Normal bowel sounds, Non tender Skin : Warm/Dry, edema at this time with mild erythema, left lower extremity erythema below the knee with no warmth or tenderness. Neurological : Alert & oriented x3, No focal deficit Objective Data Current Medications Generic Name Dose Route Start Last Admin Trade Name Freq PRN Reason Stop Dose Admin Acetaminophen 650 mg 07/04/20 16:56 07/05/20 20:16 Acetaminophen 325 Mg Tablet PO 650 mg Q6H PRN Administration Pain, Mild (Pain Scale 1-3) Albuterol Sulfate 1.25 mg 07/04/20 17:02 Albuterol Sulfate (0.042%) 1.25 Mg/3 Ml Vial.Neb INHALE RQ4H PRN Shortness of Breath/Wheezing Amlodipine Besylate 2.5 mg 07/05/20 09:00 07/06/20 08:55 Amlodipine Besylate 2.5 Mg Tablet PO 2.5 mg DAILY BREE Administration Protocol Apixaban 5 mg 07/05/20 09:00 07/06/20 08:55 Apixaban 5 Mg Tablet PO 5 mg BID BREE Administration Atenolol 25 mg 07/05/20 09:00 07/06/20 08:55 Atenolol 25 Mg Tablet PO 25 mg DAILY BREE Administration Protocol Atorvastatin Calcium 20 mg 07/05/20 09:00 07/06/20 08:55 Atorvastatin Calcium 20 Mg Tablet PO 20 mg DAILY BREE Administration Betamethasone Dipropion Augmented 1 appl 07/06/20 13:00 Betamethasone Dip Aug 0.05% Cr 15 Gm Tube TOPICAL BID [facility] Protocol Fluoxetine HCl 20 mg 07/05/20 09:00 07/06/20 08:55 Fluoxetine Hcl 20 Mg Capsule PO 20 mg DAILY BREE Administration Furosemide 40 mg 07/05/20 09:00 07/06/20 08:55 Furosemide 40 Mg/4 Ml Vial IVPUSH 40 mg BID BREE Administration Protocol Gabapentin 300 mg 07/05/20 08:00 07/06/20 13:07 Gabapentin 300 Mg Capsule PO 300 mg BID@0800,1400 BREE Administration Gabapentin 600 mg 07/05/20 21:00 07/05/20 21:32 Gabapentin 600 Mg Tablet PO 600 mg BEDTIME BREE Administration Clindamycin Phosphate 600 mg in 50 mls @ 100 mls/hr 07/06/20 13:00 07/06/20 13:07 Cleocin IV 100 mls/hr Q8H BREE Administration Insulin Human Lispro 0 unit 07/04/20 21:00 07/06/20 11:44 Insulin Lispro 100 Unit/Ml 3 Ml Vial SUBCUT Not Given QIDACHS [facility] Protocol Ondansetron HCl 4 mg 07/04/20 16:56 Ondansetron Hcl 4 Mg/2 Ml Vial IVPUSH Q8H PRN Nausea and Vomiting Oxycodone HCl 5 mg 07/06/20 08:40 07/06/20 08:53 Oxycodone Hcl Immed Release 5 Mg Tablet PO 5 mg Q6H PRN Administration Pain, Severe (Pain Scale 7-10) Pharmacy Consult 1 each 07/04/20 13:24 Consult Rx Vancomycin Dosing MISCELLANE DAILY PRN Consult order Potassium Chloride 20 meq 07/05/20 21:00 07/05/20 21:32 Potassium Chloride Er 20 Meq Tab.Er.Prt PO 20 meq BEDTIME BREE Administration Risperidone 0.25 mg 07/05/20 21:00 07/05/20 21:32 Risperidone 0.25 Mg Tablet PO 0.25 mg BEDTIME BREE Administration Sodium Chloride 3 ml 07/05/20 00:00 07/06/20 08:55 0.9 % Sodium Chloride Flush 3 Ml Syringe IVFLUSH 3 ml QSHIFT BREE Administration Labs CBC & Chem 7: 07/05/20 05:23 07/06/20 05:20 Microbiology Microbiology Results: Microbiology 07/04/20 13:57 Blood - Venous Blood Culture - Preliminary No growth after 24 hours. 07/04/20 13:34 Blood - Venous Blood Culture - Preliminary No growth after 24 hours. Assessment and Plan (1) Acute respiratory failure with hypoxia: Status: Acute (2) Right leg swelling: Status: Acute (3) Stasis dermatitis: Status: Acute (4) Volume overload: Status: Acute (5) Diabetes: Status: Acute (6) Pulmonary edema: Status: Acute Assessment and Plan: 84 years old male with PMH of AFib, CMP, COPD, diabetes among others who presented to the hospital complaining of worsening shortness of breath and left lower extremity swelling and erythema. Acute hypoxic respiratory failure Pulmonary edema Secondary to CHF Pending echo Change to PO Lasix today Wean oxygen down as tolerated Monitor intake and output follow BMP Right lower extremity erythema Seems secondary to stasis dermatitis Keep leg elevated To use emollients for lower extremities Continue IV Clinda then PO Doxy at discharge per ID recommendation Diabetes type 2 Hold metformin SSI diabetic diet Hypertension Continue amlodipine, atenolol The atrial fibrillation Rate controlled Continue Eliquis DVT PPX Eliquis, home in a day or 2
[2020-07-06] MEDS: Betamethasone Dip Aug 0.05% Cr 15 GM TUBE 1 APPL TOPICAL ×2 (14:34→22:46)
[2020-07-06 16:00] VITALS: BP 170/81; PULSE 91; RESP 20; TEMP 36.6; O2SAT 92
[2020-07-06 20:00] VITALS: BP 183/77; PULSE 88; RESP 20; TEMP 37.2; O2SAT 93
[2020-07-06 21:24] LABS: Glucose, Whole Blood 118 mg/dL (60-115)
[2020-07-06 23:15] LABS: Glucose, Whole Blood 173 mg/dL (60-115)
[2020-07-06] MEDS: Haloperidol Lactate 5 MG/ML VIAL 1 MG IM (23:19)
[2020-07-07] VITALS (7 sets, daily range): BP systolic 142–183; BP diastolic 72–89; PULSE 70–122; RESP 18–22; TEMP 36.6–36.8; O2SAT 90–96
[2020-07-07] MEDS: diphenhydrAMINE HCL 50 MG/ML VIAL 25 MG IM (00:01)
[2020-07-07] MEDS: LORazepam 2 MG/ML VIAL 1 MG IM (00:02)
[2020-07-07] MEDS: Clindamycin Phosphate/D5W 600 MG/50 ML PIGGYBACK 100 MG IV ×4 (00:17→22:15)
[2020-07-07] MEDS: 0.9 % Sodium Chloride Flush 3 ML SYRINGE IVFLUSH ×4 (01:16→22:16)
[2020-07-07 07:18] LABS: Glucose, Whole Blood 116 mg/dL (60-115)
[2020-07-07] MEDS: Gabapentin 300 MG CAPSULE PO ×2 (09:33→13:24)
[2020-07-07] MEDS: atenoloL 25 MG TABLET PO (09:33)
[2020-07-07] MEDS: Furosemide 40 MG/4 ML VIAL IVPUSH ×2 (09:33→22:14)
[2020-07-07] MEDS: Apixaban 5 MG TABLET PO ×2 (09:33→22:15)
[2020-07-07] MEDS: Atorvastatin Calcium 20 MG TABLET PO (09:33)
[2020-07-07] MEDS: amLODIPine Besylate 2.5 MG TABLET PO (09:33)
[2020-07-07] MEDS: FLUoxetine HCl 20 MG CAPSULE PO (09:33)
[2020-07-07] MEDS: LORazepam 0.5 MG TABLET PO ×2 (09:35→16:51)
[2020-07-07 11:19] LABS: Glucose, Whole Blood 123 mg/dL (60-115)
[2020-07-07] MEDS: Betamethasone Dip Aug 0.05% Cr 15 GM TUBE 1 APPL TOPICAL ×2 (12:23→22:16)
--- NOTE | 2020-07-07 13:39 | P.DS_ITS ---
DS: Providers Provider Date of Service: 07/08/20 Date of admission: 07/04/20 16:56 Primary care physician: Alexa Barajas NP Consults: 07/04/20 17:02 Consult to Infectious Diseases Routine Consulting Provider: Myrna Casper Reason for consultation: Evaluation for LE erythema and edema stasis dermatitis vs inf failed OP ABx DS: Diagnosis Discharge Diagnosis (1) Acute respiratory failure with hypoxia: Status: Acute (2) Right leg swelling: Status: Acute (3) Stasis dermatitis: Status: Acute (4) Volume overload: Status: Acute (5) Diabetes: Status: Acute (6) Pulmonary edema: Status: Acute DS: Medications Discharge Medications Home Medications: Home Medications Medication Instructions Recorded Confirmed Eliquis 5 mg PO BID 03/28/20 07/04/20 albuterol sulfate 2 puff PO Q4-6H PRN 03/28/20 07/04/20 amlodipine 2.5 mg PO DAILY 03/28/20 07/04/20 ascorbic acid (vitamin C) [Vitamin 500 mg PO BID 03/28/20 07/04/20 C] atenolol 25 mg PO DAILY 03/28/20 07/04/20 atorvastatin 20 mg PO QAM 03/28/20 07/04/20 cholecalciferol (vitamin D3) 25 mcg PO DAILY 03/28/20 07/04/20 ferrous sulfate 325 mg PO BID 03/28/20 07/04/20 fluoxetine 20 mg PO DAILY 03/28/20 07/04/20 gabapentin 300 mg PO BID@0800,1400 03/28/20 07/04/20 gabapentin 600 mg PO BEDTIME 03/28/20 07/04/20 melatonin 5 mg PO BEDTIME 03/28/20 07/04/20 metformin 500 mg PO DAILY@1700 03/28/20 07/04/20 potassium chloride 20 meq PO BEDTIME 03/28/20 07/04/20 risperidone 0.25 mg PO BEDTIME 03/28/20 07/04/20 tamsulosin 0.4 mg PO DAILY@1700 03/28/20 07/04/20 ammonium lactate 1 appl TOPICAL DAILY 07/04/20 07/04/20 furosemide 80 mg PO QAM 07/04/20 07/04/20 DS: Summary Hospital Course Hospital Course: Chief Complaint: Shortness of breath, left lower extremity swelling and erythema An 84 years old male with PMH of AFib, CMP, COPD, diabetes among others who presented to the hospital complaining of worsening shortness of breath and left lower extremity swelling and erythema. The patient report his breathing has been okay until this morning when he started to feel shortness of breath upon resting and watching the TV. He decided to come to the hospital as his right lower extremity became more swollen and red associated with pain which failed ou tpatient antibiotics of doxycycline and Augmentin. In the emergency he was started on IV antibiotic but developed hypoxemia with oxygen level dropping below 90 requiring oxygen supplement. Scan of the chest was consistent with pulmonary edema. Admitted for further evaluation and treatment. Hospital course: Acute hypoxic respiratory failure due to CHF exacerbtion. Treated with IV Lasix with good effect and will change to oral Lasix at discharge. She qualifies for Oxygen at home Right lower extremity erythema Seems secondary to stasis dermatitis with component of celluliis. Has been on Clindamycin and will change to PO Doxycyline at discharge. Diabetes type 2--Resume home meds including metformin Hypertension Continue amlodipine, atenolol The atrial fibrillation Rate controlled Continue Eliquis Home with VNA Time Spent with Patient Time attestation: Total time spent providing and/or coordinating discharge services: Discharge coordination time: Greater than 30 minutes Physical Exam Vital Signs: Vital Signs: Last Vital Signs Temp 98 F 07/07/20 12:00 Pulse 81 07/07/20 06:53 Resp 20 07/07/20 06:53 BP 158/81 H 07/07/20 06:53 Pulse Ox 96 07/07/20 06:53 Body Mass Index 30.9 Const: Other: Constitutional : Alert, oriented, not in distress Neck : Normal inspection, Supple Cardiovascular : RRR, S1 S2, right leg BKA, left lower extremity +1 edema Respiratory : For bilateral air entry, bilateral crackles above mid chest level, no wheezes or rhonchi Gastrointestinal: soft, lax, Normal bowel sounds, Non tender Skin : Warm/Dry, edema at this time with mild erythema, left lower extremity erythema below the knee with no warmth or tenderness. Neurological : Alert & oriented x3, No focal deficit DS: Data Data Completed and Pending Labs on day of discharge: Laboratory Tests 07/04/20 07/04/20 07/04/20 13:34 13:58 13:58 WBC RBC Hgb Hct MCV MCH MCHC RDW Plt Count MPV Immature Gran % (Auto) Neut % (Auto) Lymph % (Auto) [place] % (Auto) Eos % (Auto) Baso % (Auto) Lymph # (Auto) [place] # (Auto) Eos # (Auto) Baso # (Auto) Abs Immat Gran (auto) Absolute Neuts (auto) Absolute Nucleated RBC Nucleated RBC % (auto) ESR PT 14.6 H D INR 1.2 H APTT 46.2 H Sodium 140 Potassium 4.9 Chloride 102 Carbon Dioxide 31 H Anion Gap 12 BUN 27 H Creatinine 1.30 Estim Creat Clear Calc 50.4 Estimated GFR 53 POC Glucose Random Glucose 156 H Lactic Acid Calcium 9.0 Magnesium 2.3 Total Bilirubin 1.0 Direct Bilirubin 0.4 AST 14 D ALT 9 Alkaline Phosphatase 69 Troponin I High Sens C-Reactive Protein 2.39 H B-Natriuretic Peptide Total Protein 7.5 Albumin 3.9 Urine Color Urine Appearance Urine pH Ur Specific Virgin Urine Protein Urine Glucose (UA) Urine Ketones Urine Blood Urine Nitrite Ur Leukocyte Esterase COVID-19 ([facility]) Negative COVID-19 [employer] See Note 07/04/20 07/04/20 07/04/20 13:59 13:59 13:59 WBC RBC Hgb Hct MCV MCH MCHC RDW Plt Count MPV Immature Gran % (Auto) Neut % (Auto) Lymph % (Auto) [place] % (Auto) Eos % (Auto) Baso % (Auto) Lymph # (Auto) [place] # (Auto) Eos # (Auto) Baso # (Auto) Abs Immat Gran (auto) Absolute Neuts (auto) Absolute Nucleated RBC Nucleated RBC % (auto) ESR 54 H PT INR APTT Sodium Potassium Chloride Carbon Dioxide Anion Gap BUN Creatinine Estim Creat Clear Calc Estimated GFR POC Glucose Random Glucose Lactic Acid 0.7 Calcium Magnesium Total Bilirubin Direct Bilirubin AST ALT Alkaline Phosphatase Troponin I High Sens 6.1 C-Reactive Protein B-Natriuretic Peptide 102 H Total Protein Albumin Urine Color Urine Appearance Urine pH Ur Specific Virgin Urine Protein Urine Glucose (UA) Urine Ketones Urine Blood Urine Nitrite Ur Leukocyte Esterase COVID-19 ([facility]) COVID-[employer] 07/04/20 07/04/20 07/04/20 14:00 17:52 17:55 WBC 5.7 RBC 3.74 L Hgb 10.3 L Hct 33.7 L MCV 90.1 MCH 27.5 MCHC 30.6 L RDW 15.7 Plt Count 189 MPV 9.7 Immature Gran % (Auto) 0.2 Neut % (Auto) 59.1 Lymph % (Auto) 20.9 [place] % (Auto) 12.0 H Eos % (Auto) 7.4 H Baso % (Auto) 0.4 Lymph # (Auto) 1.2 [place] # (Auto) 0.7 Eos # (Auto) 0.4 Baso # (Auto) 0.0 Abs Immat Gran (auto) 0.01 Absolute Neuts (auto) 3.3 Absolute Nucleated RBC 0.000 Nucleated RBC % (auto) 0.0 ESR PT INR APTT Sodium Potassium Chloride Carbon Dioxide Anion Gap BUN Creatinine Estim Creat Clear Calc Estimated GFR POC Glucose 138 H Random Glucose Lactic Acid Calcium Magnesium Total Bilirubin Direct Bilirubin AST ALT Alkaline Phosphatase Troponin I High Sens C-Reactive Protein B-Natriuretic Peptide Total Protein Albumin Urine Color STRAW Urine Appearance CLEAR Urine pH 5.5 Ur Specific Virgin 1.020 Urine Protein NEG Urine Glucose (UA) NEG Urine Ketones NEG Urine Blood NEG Urine Nitrite NEG Ur Leukocyte Esterase NEG COVID-19 ([facility]) COVID-19 Clin Com 07/04/20 07/05/20 07/05/20 21:16 05:23 05:23 WBC 6.2 RBC 3.91 L Hgb 10.7 L Hct 35.2 L MCV 90.0 MCH 27.4 MCHC 30.4 L RDW 15.5 Plt Count 218 MPV 10.4 Immature Gran % (Auto) Neut % (Auto) Lymph % (Auto) [place] % (Auto) Eos % (Auto) Baso % (Auto) Lymph # (Auto) [place] # (Auto) Eos # (Auto) Baso # (Auto) Abs Immat Gran (auto) Absolute Neuts (auto) Absolute Nucleated RBC 0.000 Nucleated RBC % (auto) 0.0 ESR PT INR APTT Sodium 144 Potassium 4.5 Chloride 101 Carbon Dioxide 28 Anion Gap 20 BUN 27 H Creatinine 1.19 Estim Creat Clear Calc 55.1 Estimated GFR 58 POC Glucose 132 H Random Glucose 111 Lactic Acid Calcium 9.0 Magnesium Total Bilirubin Direct Bilirubin AST ALT Alkaline Phosphatase Troponin I High Sens C-Reactive Protein B-Natriuretic Peptide Total Protein Albumin Urine Color Urine Appearance Urine pH Ur Specific Virgin Urine Protein Urine Glucose (UA) Urine Ketones Urine Blood Urine Nitrite Ur Leukocyte Esterase COVID-19 ([facility]) COVID-19 [employer] 07/05/20 07/05/20 07/05/20 05:23 07:08 11:01 WBC RBC Hgb Hct MCV MCH MCHC RDW Plt Count MPV Immature Gran % (Auto) Neut % (Auto) Lymph % (Auto) [place] % (Auto) Eos % (Auto) Baso % (Auto) Lymph # (Auto) [place] # (Auto) Eos # (Auto) Baso # (Auto) Abs Immat Gran (auto) Absolute Neuts (auto) Absolute Nucleated RBC Nucleated RBC % (auto) ESR PT INR APTT Sodium Potassium Chloride Carbon Dioxide Anion Gap BUN Creatinine Estim Creat Clear Calc Estimated GFR POC Glucose 104 118 H Random Glucose Lactic Acid Calcium Magnesium Total Bilirubin Direct Bilirubin AST ALT Alkaline Phosphatase Troponin I High Sens C-Reactive Protein B-Natriuretic Peptide 189 H Total Protein Albumin Urine Color Urine Appearance Urine pH Ur Specific Virgin Urine Protein Urine Glucose (UA) Urine Ketones Urine Blood Urine Nitrite Ur Leukocyte Esterase COVID-19 ([facility]) COVID-19 [employer] 07/05/20 07/05/20 07/06/20 16:07 20:23 05:20 WBC RBC Hgb Hct MCV MCH MCHC RDW Plt Count MPV Immature Gran % (Auto) Neut % (Auto) Lymph % (Auto) [place] % (Auto) Eos % (Auto) Baso % (Auto) Lymph # (Auto) [place] # (Auto) Eos # (Auto) Baso # (Auto) Abs Immat Gran (auto) Absolute Neuts (auto) Absolute Nucleated RBC Nucleated RBC % (auto) ESR PT INR APTT Sodium 144 Potassium 4.5 Chloride 101 Carbon Dioxide 34 H Anion Gap 14 BUN 31 H Creatinine 1.18 Estim Creat Clear Calc 55.6 Estimated GFR 59 POC Glucose 123 H 122 H Random Glucose 104 Lactic Acid Calcium 8.7 Magnesium Total Bilirubin Direct Bilirubin AST ALT Alkaline Phosphatase Troponin I High Sens C-Reactive Protein B-Natriuretic Peptide Total Protein Albumin Urine Color Urine Appearance Urine pH Ur Specific Virgin Urine Protein Urine Glucose (UA) Urine Ketones Urine Blood Urine Nitrite Ur Leukocyte Esterase COVID-19 ([facility]) COVID-19 [employer] 07/06/20 07/06/20 07/06/20 07:21 11:25 16:56 WBC RBC Hgb Hct MCV MCH MCHC RDW Plt Count MPV Immature Gran % (Auto) Neut % (Auto) Lymph % (Auto) [place] % (Auto) Eos % (Auto) Baso % (Auto) Lymph # (Auto) [place] # (Auto) Eos # (Auto) Baso # (Auto) Abs Immat Gran (auto) Absolute Neuts (auto) Absolute Nucleated RBC Nucleated RBC % (auto) ESR PT INR APTT Sodium Potassium Chloride Carbon Dioxide Anion Gap BUN Creatinine Estim Creat Clear Calc Estimated GFR POC Glucose 98 121 H 118 H Random Glucose Lactic Acid Calcium Magnesium Total Bilirubin Direct Bilirubin AST ALT Alkaline Phosphatase Troponin I High Sens C-Reactive Protein B-Natriuretic Peptide Total Protein Albumin Urine Color Urine Appearance Urine pH Ur Specific Virgin Urine Protein Urine Glucose (UA) Urine Ketones Urine Blood Urine Nitrite Ur Leukocyte Esterase COVID-19 ([facility]) [email or web address] 07/06/20 07/07/20 07/07/20 21:45 07:15 11:16 WBC RBC Hgb Hct MCV MCH MCHC RDW Plt Count MPV Immature Gran % (Auto) Neut % (Auto) Lymph % (Auto) [place] % (Auto) Eos % (Auto) Baso % (Auto) Lymph # (Auto) [place] # (Auto) Eos # (Auto) Baso # (Auto) Abs Immat Gran (auto) Absolute Neuts (auto) Absolute Nucleated RBC Nucleated RBC % (auto) ESR PT INR APTT Sodium Potassium Chloride Carbon Dioxide Anion Gap BUN Creatinine Estim Creat Clear Calc Estimated GFR POC Glucose 173 H 116 H 123 H Random Glucose Lactic Acid Calcium Magnesium Total Bilirubin Direct Bilirubin AST ALT Alkaline Phosphatase Troponin I High Sens C-Reactive Protein B-Natriuretic Peptide Total Protein Albumin Urine Color Urine Appearance Urine pH Ur Specific Virgin Urine Protein Urine Glucose (UA) Urine Ketones Urine Blood Urine Nitrite Ur Leukocyte Esterase COVID-19 ([facility]) [employer] Preliminary micro results at discharge 07/04/20 13:57 Blood Culture - Preliminary Blood - Venous No growth after 48 hours. 07/04/20 13:34 Blood Culture - Preliminary Blood - Venous No growth after 48 hours. Discharge Plan Discharge Anticipated Discharge Date/Time: 07/08/20 11:18 Patient Disposition: Home Health Service Referrals: Alexa Barajas NP [Primary Care Provider] - Discharge Medications: New doxycycline hyclate 100 mg capsule 100 mg PO DAILY Qty: 10 RF: 0 Continued metformin 500 mg tablet 500 mg PO DAILY@1700 RF: 0 gabapentin 600 mg tablet 600 mg PO BEDTIME RF: 0 atorvastatin 20 mg tablet 20 mg PO QAM RF: 0 atenolol 25 mg tablet 25 mg PO DAILY RF: 0 risperidone 0.25 mg tablet 0.25 mg PO BEDTIME RF: 0 amlodipine 2.5 mg tablet 2.5 mg PO DAILY RF: 0 potassium chloride 20 mEq tablet,ER particles/crystals 20 meq PO BEDTIME RF: 0 ascorbic acid (vitamin C) [Vitamin C] 500 mg tablet 500 mg PO BID RF: 0 tamsulosin 0.4 mg capsule 0.4 mg PO DAILY@1700 RF: 0 ferrous sulfate 325 mg (65 mg iron) tablet 325 mg PO BID RF: 0 gabapentin 300 mg capsule 300 mg PO BID@0800,1400 RF: 0 albuterol sulfate 90 mcg/actuation HFA aerosol inhaler 2 puff PO Q4-6H PRN (Reason: Shortness Of Breath) RF: 0 fluoxetine 20 mg capsule 20 mg PO DAILY RF: 0 cholecalciferol (vitamin D3) 25 mcg (1,000 unit) tablet 25 mcg PO DAILY RF: 0 melatonin 5 mg tablet 5 mg PO BEDTIME RF: 0 Eliquis 5 mg tablet 5 mg PO BID RF: 0 ammonium lactate 12 % Lotion 1 appl TOPICAL DAILY RF: 0 furosemide 40 mg tablet 80 mg PO QAM RF: 0 Discharge Orders: Discharge Order (Routine); Ordered 07/08/20 Ordered By: Markus Washburn Diet: diabetic diet Activity on Discharge: As tolerated Stand Alone Forms: Patient Portal Discharge page Care Plan Goals: prevent rehospitalization from heart failure Health Concerns: chronic heart failure Plan of Treatment: Take all your medication including lasix as tolerated and use oxygen as directed Take Doxcycline for cellulitis
--- NOTE | 2020-07-07 13:52 | PC.NURSE ---
PT FACE TIME WITH DAUGHTER DENNIS. SEEMED TO HELP PT. ROOM AIR SATS 91-92% W/A AND DROP TO 88% WHEN ASLEEP. DR BARRIOS AWARE
--- NOTE | 2020-07-07 13:54 | P.PNIM_ITS ---
Subjective Subjective Date of Service: 07/07/20 Interval History: Seen in f/u for CHF. Joe. Cellulitis of leg is better Review of Systems No fever, chills or weakness No chest pain, palpitation , increased edema in left lower extremity Reporting shortness of breath but no coughing No abdominal pain, nausea or vomiting No urinary symptoms No any rash or wounds Physical Exam Vital Signs: Vital Signs: Last Vital Signs Temp 98 F 07/07/20 12:00 Pulse 81 07/07/20 06:53 Resp 20 07/07/20 06:53 BP 158/81 H 07/07/20 06:53 Pulse Ox 96 07/07/20 06:53 Body Mass Index 30.9 Const: Other: Constitutional : Alert, oriented, not in distress Neck : Normal inspection, Supple Cardiovascular : RRR, S1 S2, right leg BKA, left lower extremity +1 edema Respiratory : For bilateral air entry, bilateral crackles above mid chest level, no wheezes or rhonchi Gastrointestinal: soft, lax, Normal bowel sounds, Non tender Skin : Warm/Dry, edema at this time with mild erythema, left lower extremity erythema below the knee with no warmth or tenderness. Neurological : Alert & oriented x3, No focal deficit Objective Data Current Medications Generic Name Dose Route Start Last Admin Trade Name Freq PRN Reason Stop Dose Admin Acetaminophen 650 mg 07/04/20 16:56 07/05/20 20:16 Acetaminophen 325 Mg Tablet PO 650 mg Q6H PRN Administration Pain, Mild (Pain Scale 1-3) Albuterol Sulfate 1.25 mg 07/04/20 17:02 Albuterol Sulfate (0.042%) 1.25 Mg/3 Ml Vial.Neb INHALE RQ4H PRN Shortness of Breath/Wheezing Amlodipine Besylate 2.5 mg 07/05/20 09:00 07/07/20 09:33 Amlodipine Besylate 2.5 Mg Tablet PO 2.5 mg DAILY BREE Administration Protocol Apixaban 5 mg 07/05/20 09:00 07/07/20 09:33 Apixaban 5 Mg Tablet PO 5 mg BID BREE Administration Atenolol 25 mg 07/05/20 09:00 07/07/20 09:33 Atenolol 25 Mg Tablet PO 25 mg DAILY BREE Administration Protocol Atorvastatin Calcium 20 mg 07/05/20 09:00 07/07/20 09:33 Atorvastatin Calcium 20 Mg Tablet PO 20 mg DAILY BREE Administration Betamethasone Dipropion Augmented 1 appl 07/06/20 13:00 07/07/20 12:23 Betamethasone Dip Aug 0.05% Cr 15 Gm Tube TOPICAL 1 appl BID BREE Administration Protocol Fluoxetine HCl 20 mg 07/05/20 09:00 07/07/20 09:33 Fluoxetine Hcl 20 Mg Capsule PO 20 mg DAILY BREE Administration Furosemide 40 mg 07/05/20 09:00 07/07/20 09:33 Furosemide 40 Mg/4 Ml Vial IVPUSH 40 mg BID BREE Administration Protocol Gabapentin 300 mg 07/05/20 08:00 07/07/20 13:24 Gabapentin 300 Mg Capsule PO 300 mg BID@0800,1400 BREE Administration Gabapentin 600 mg 07/05/20 21:00 07/07/20 00:16 Gabapentin 600 Mg Tablet PO Not Given BEDTIME BREE Clindamycin Phosphate 600 mg in 50 mls @ 100 mls/hr 07/07/20 06:30 07/07/20 13:24 Cleocin IV 100 mls/hr Q8H BREE Administration Insulin Human Lispro 0 unit 07/04/20 21:00 07/07/20 11:40 Insulin Lispro 100 Unit/Ml 3 Ml Vial SUBCUT Not Given [facility] Protocol Lorazepam 0.5 mg 07/06/20 18:41 07/07/20 09:35 Lorazepam 0.5 Mg Tablet PO 0.5 mg Q6H PRN Administration Anxiety Ondansetron HCl 4 mg 07/04/20 16:56 Ondansetron Hcl 4 Mg/2 Ml Vial IVPUSH Q8H PRN Nausea and Vomiting Oxycodone HCl 5 mg 07/06/20 08:40 07/06/20 14:34 Oxycodone Hcl Immed Release 5 Mg Tablet PO 5 mg Q6H PRN Administration Pain, Severe (Pain Scale 7-10) Pharmacy Consult 1 each 07/04/20 13:24 Consult Rx Vancomycin Dosing MISCELLANE DAILY PRN Consult order Potassium Chloride 20 meq 07/05/20 21:00 07/07/20 00:16 Potassium Chloride Er 20 Meq Tab.Er.Prt PO Not Given BEDTIME BREE Risperidone 0.25 mg 07/05/20 21:00 07/07/20 00:16 Risperidone 0.25 Mg Tablet PO Not Given BEDTIME BREE Sodium Chloride 3 ml 07/05/20 00:00 07/07/20 09:32 0.9 % Sodium Chloride Flush 3 Ml Syringe IVFLUSH 3 ml QSHIFT BREE Administration Labs CBC & Chem 7: 07/05/20 05:23 07/06/20 05:20 Microbiology Microbiology Results: Microbiology 07/04/20 13:57 Blood - Venous Blood Culture - Preliminary No growth after 48 hours. 07/04/20 13:34 Blood - Venous Blood Culture - Preliminary No growth after 48 hours. Assessment and Plan (1) Acute respiratory failure with hypoxia: Status: Acute (2) Right leg swelling: Status: Acute (3) Stasis dermatitis: Status: Acute (4) Volume overload: Status: Acute (5) Diabetes: Status: Acute (6) Pulmonary edema: Status: Acute Assessment and Plan: 84 years old male with PMH of AFib, CMP, COPD, diabetes among others who p resented to the hospital complaining of worsening shortness of breath and left lower extremity swelling and erythema. Acute hypoxic respiratory failure due to CHF exacerbtion. Treated with IV Lasix with good effect and will change to oral Lasix at discharge. Weaned off oxygen Right lower extremity erythema Seems secondary to stasis dermatitis with component of celluliis. Has been on Clindamycin and will change to PO Doxycyline at discharge. Diabetes type 2--Resume home meds including metformin Hypertension Continue amlodipine, atenolol The atrial fibrillation Rate controlled Continue Eliquis Home with VNA
[2020-07-07 15:05] LABS: Vancomycin Trough 9.8 mcg/mL (10.0-20.0)
[2020-07-07 15:46] LABS: Glucose, Whole Blood 146 mg/dL (60-115)
[2020-07-07 19:52] LABS: Glucose, Whole Blood 115 mg/dL (60-115)
[2020-07-07] MEDS: Potassium Chloride ER 20 MEQ TAB.ER.PRT PO (22:14)
[2020-07-07] MEDS: Gabapentin 600 MG TABLET PO (22:15)
[2020-07-07] MEDS: risperiDONE 0.25 MG TABLET PO (22:15)
[2020-07-08] MEDS: LORazepam 0.5 MG TABLET PO ×2 (00:24→10:48)
[2020-07-08 03:59] VITALS: BP 161/81; PULSE 79; RESP 18; TEMP 36.4; O2SAT 94
[2020-07-08 07:16] LABS: Glucose, Whole Blood 112 mg/dL (60-115)
[2020-07-08 07:20] VITALS: BP 160/88; PULSE 94; RESP 20; TEMP 36.6; O2SAT 94
[2020-07-08] MEDS: Clindamycin Phosphate/D5W 600 MG/50 ML PIGGYBACK 100 MG IV (07:31)
[2020-07-08] MEDS: atenoloL 25 MG TABLET PO (07:32)
[2020-07-08] MEDS: Atorvastatin Calcium 20 MG TABLET PO (07:33)
[2020-07-08] MEDS: Acetaminophen 325 MG TABLET 650 MG PO (07:35)
[2020-07-08] MEDS: 0.9 % Sodium Chloride Flush 3 ML SYRINGE IVFLUSH (07:36)
[2020-07-08] MEDS: Gabapentin 300 MG CAPSULE PO (07:36)
[2020-07-08] MEDS: FLUoxetine HCl 20 MG CAPSULE PO (07:36)
[2020-07-08] MEDS: amLODIPine Besylate 2.5 MG TABLET PO (07:36)
[2020-07-08] MEDS: Apixaban 5 MG TABLET PO (07:36)
[2020-07-08] MEDS: Betamethasone Dip Aug 0.05% Cr 15 GM TUBE 1 APPL TOPICAL (07:37)
[2020-07-08 07:54] VITALS: PULSE 110; PULSE 86; O2SAT 88; O2SAT 90
[2020-07-08 11:06] LABS: Glucose, Whole Blood 168 mg/dL (60-115)
[2020-07-08 11:20] VITALS: BP 140/69; PULSE 79; RESP 18; TEMP 36.9; O2SAT 95
[2020-07-08] MEDS: Insulin Lispro 100 UNIT/ML 3 ML VIAL SUBCUT (11:33)
--- NOTE | 2020-07-08 11:59 | MHC.CM.PN ---
pt being discharged today. CM contacted [facility], transitions of care nurse production cook, Racquel and informed her of DC. She is also aware services have been arranged for pt through [facility]. This was authorized by [facility] liaison, Apoorva at time of referral. Pt will DC home today with resumption of DIRECTOR PRODUCT DEVELOPMENT services and new [facility] services. Pts [facility] childcare worker will follow up with him within 48 hours of DC for post hospitalization assessment.
== END 2020-07-08 16:04 | disposition home health service (06) | DRG 291 ==
LOC: HO.ED 17:06 → HO.EDOVER 17:31 → HO.IMC 20:04
PROVIDERS: Physician Assistant; Admitting Provider Student in an Organized Health Care Education/Training Program; Emergency Provider Emergency Medicine; PCP Nurse Practitioner Family; Visit Provider Internal Medicine
DX: I11.0 Hypertensive heart disease with heart failure (principal); J96.01 Acute respiratory failure with hypoxia; I42.8 Other cardiomyopathies; I48.91 Unspecified atrial fibrillation; I50.33 Acute on chronic diastolic (congestive) heart failure; I50.23 Acute on chronic systolic (congestive) heart failure; E11.51 Type 2 diabetes mellitus with diabetic peripheral angiopathy without gangrene; I87.321 Chronic venous hypertension (idiopathic) with inflammation of right lower extremity; Z89.511 Acquired absence of right leg below knee; Z79.01 Long term (current) use of anticoagulants; Z79.84 Long term (current) use of oral hypoglycemic drugs; Z79.899 Other long term (current) drug therapy
CPT/HCPCS: 36415; 71045; 71250; 80048; 80076; 80202; 81003; 82947; 83605; 83735; 83880; 84484; 85025; 85027; 85610; 85652; 85730; 86140; 87040; 87635; 93005; 93306; 93970; 96366; 96367; 96375; 99284; 99285; 99291; J1200; J1940; J2060; J2270; J2543; J3370

== ENCOUNTER 2020-11-02 13:50 | Outpatient (RCR) | payer MEDICARE, SELFPAY ==
--- NOTE | ~2020-11-02 | XR_ITS ---
EXAMINATION: XR FOOT, LEFT CLINICAL INFORMATION: Left foot wound. COMPARISON: None. TECHNIQUE: AP, lateral, and oblique views of the left foot. FINDINGS: Soft tissue defect overlying the medial aspect of the 1st metatarsal head without radiopaque foreign body. No adjacent periosteal reaction or osseous erosion. Mild osteopenia. No joint space narrowing or marginal osteophytes. Tiny plantar and dorsal calcaneal enthesophytes. Forefoot soft tissue swelling. XR/XR foot LT 2V IMPRESSION: Soft tissue ulceration at the medial aspect of the 1st metatarsal head with forefoot soft tissue swelling, consistent with cellulitis. No osseous abnormality to suggest acute osteomyelitis. Early osteomyelitis may be occult on plain radiographs and if there is clinical concern, bone scan or MRI without and with contrast could help further evaluate.
== END 2021-01-29 12:19 | disposition home or self-care (01) ==
LOC: HO.WCC 13:50
PROVIDERS: PCP Family Medicine; Visit Provider Physician Assistant
DX: E11.621 Type 2 diabetes mellitus with foot ulcer (principal); L97.522 Non-pressure chronic ulcer of other part of left foot with fat layer exposed; L89.629 Pressure ulcer of left heel, unspecified stage; I87.332 Chronic venous hypertension (idiopathic) with ulcer and inflammation of left lower extremity; E11.52 Type 2 diabetes mellitus with diabetic peripheral angiopathy with gangrene; E11.40 Type 2 diabetes mellitus with diabetic neuropathy, unspecified; E11.22 Type 2 diabetes mellitus with diabetic chronic kidney disease; I13.0 Hypertensive heart and chronic kidney disease with heart failure and stage 1 through stage 4 chronic kidney disease, or unspecified chronic kidney disease; I50.9 Heart failure, unspecified; N18.30 Chronic kidney disease, stage 3 unspecified; I48.91 Unspecified atrial fibrillation; I25.10 Atherosclerotic heart disease of native coronary artery without angina pectoris; R41.0 Disorientation, unspecified; Z87.891 Personal history of nicotine dependence; Z79.84 Long term (current) use of oral hypoglycemic drugs; Z99.81 Dependence on supplemental oxygen; Z89.511 Acquired absence of right leg below knee
CPT/HCPCS: 11042; 11045; 73620

== ENCOUNTER → 2020-12-18 09:22 | Outpatient (BNVA) | payer MEDICARE, SELFPAY | PROVIDERS: PCP Family Medicine; Visit Provider Internal Medicine ==

== ENCOUNTER 2020-12-25 10:57 | Inpatient (IN) | payer MEDICARE, SELFPAY ==
[2020-12-25] VITALS (10 sets, daily range): BP systolic 127–162; BP diastolic 58–100; PULSE 59–111; RESP 13–18; TEMP 36.4–37; O2SAT 92–97; BMI 27.1
--- NOTE | ~2020-12-25 | XR_ITS ---
EXAMINATION: XR CHEST CLINICAL INFORMATION: Shortness of breath COMPARISON: Previous chest x-ray and chest CT June 2020 TECHNIQUE: Frontal view of the chest was obtained. FINDINGS: The cardiac silhouette is enlarged but stable. Hilar and mediastinal contours are unremarkable. The lungs are clear. There is no pleural effusion or pneumothorax. There are degenerative changes of the spine. XR/XR chest 1V IMPRESSION: Stable enlargement of the cardiac silhouette. No evidence for acute disease in the chest.
--- NOTE | ~2020-12-25 | XR_ITS ---
EXAMINATION: XR CHEST CLINICAL INFORMATION: Shortness of breath COMPARISON: Chest radiographs 12/25/2020, 07/04/2020 TECHNIQUE: Portable upright AP x2 views of the chest was obtained. FINDINGS: There is no pneumothorax. No interval airspace consolidation, vascular congestion, or effusion. The costophrenic sulci are clear. The cardiopericardial silhouette is stable. The hilar and mediastinal contours and visualized bony structures are unremarkable. XR/XR chest 1V IMPRESSION: Unremarkable examination.
--- NOTE | ~2020-12-25 | US_ITS ---
EXAMINATION: NONINVASIVE ASSESSMENT OF THE ARTERIES OF THE LEFT LOWER EXTREMITY Lee Biggs MD CLINICAL INFORMATION: Left lower extremity pain TECHNIQUE: Left lower extremity duplex ultrasound was performed with velocity measurements and waveform analysis in the common femoral arteries, profunda femoris arteries, proximal mid and distal superficial femoral arteries, popliteal arteries and tibial vessels. This study was performed only at rest. COMPARISON: 04/10/2020 FINDINGS: Velocities in cm/sec and phasicity as well as the presence of plaque are reported below. LEFT LEG: Moderate plaque is present especially in the SFA. Common Femoral: 133 -triphasic Profunda Femoris: 121 -triphasic Proximal SFA: 36 -biphasic Mid SFA: 35 -biphasic Distal SFA: 32 -monophasic Popliteal: Not seen, may be due to technical factors as the patient could not move the legs Posterior tibial: 88 -monophasic US/US arterial duplex LE LT IMPRESSION: Evidence of peripheral vascular disease with decreased flow present in the SFA and monophasic flow seen in the tibial vessels.
--- NOTE | ~2020-12-25 | US_ITS ---
EXAMINATION: US VENOUS ULTRASOUND WITH DOPPLER LOWER EXTREMITY, LEFT CLINICAL INFORMATION: Edema COMPARISON: Prior ultrasound June 2020 TECHNIQUE: Ultrasound of the deep veins is performed from the hip to the calf with compression sonography and color and pulse Doppler assessment. Spectral analysis with color-flow imaging is performed. FINDINGS: The exam is limited as the patient could not tolerate compression. Flow visualized in common femoral vein greater saphenous vein proximal and mid femoral vein and posterior tibial vein. Distal femoral vein and popliteal vein and peroneal veins not visualized. No thrombosis is seen in the visualized veins. No Gutierrez's cyst. If the patient's symptoms persist, followup ultrasound in 5 days 7 days might be of value to exclude proximal propagation from a non-visualized calf vein. US/US venous duplex LE IMPRESSION: Limited examination as several veins portions of the veins were not visualized No thrombus seen in the visualized veins. Consider follow-up imaging if symptoms persist into exclude propagation from a nonvisualized calf vein.
--- NOTE | ~2020-12-25 | XR_ITS ---
EXAMINATION: XR CHEST CLINICAL INFORMATION: Status post right-sided PICC insertion. Wound left foot. COMPARISON: Chest radiographs 12/27/2020, 12/25/2020, 07/04/2020 TECHNIQUE: Portable upright AP view of the chest was obtained. FINDINGS: There is been interval placement of a right-sided PICC with the tip at the distal superior vena cava. There are subtle groundglass opacities right upper lobe periphery and right suprahilar. There is no lobar or segmental airspace consolidation. No pneumothorax or pleural reaction or effusion. The cardiac and hilar and mediastinal contours and bony structures are stable. XR/XR chest 1V IMPRESSION: 1. Right PICC tip at distal superior vena cava. 2. Suspect subtle groundglass opacities right upper lobe. No effusion.
--- NOTE | ~2020-12-25 | MR_ITS ---
EXAMINATION: MRI FOOT LEFT WITH WITHOUT/WITH CONTRAST CLINICAL INFORMATION: 85-year-old male with history of left foot wound, possible osteomyelitis. COMPARISON: Radiographs of left foot from 12/18/2020. TECHNIQUE: MR imaging of the left foot was performed using standard sequences on a high-field magnet without and with intravenous administration of 10 mL Gadavist. FINDINGS: The bones of the left foot have normal alignment. No fractures. A soft tissue ulcer is noted medial to the head of the first metatarsal. On the T1-weighted images, there is a 0.8 x 0.8 x 1.3 cm area in the medial metatarsal head that exhibits loss of fatty marrow signal. This area of the metatarsal head is T2 hyperintense and enhances after contrast administration. The constellation of findings are consistent with osteomyelitis. There appears to be a small area of likely reactive edema/hyperemia in the medial base of the proximal phalanx of the great toe. This region of the proximal phalanx has well preserved fatty marrow signal on T1-weighted images. The great toe MTP joint is otherwise unremarkable. No thickened synovium or joint effusion. The other bones of the examined foot are unremarkable. There is severe, diffuse atrophy and fatty replacement of muscles of the foot. This could be a manifestation of chronic disuse of musculature and/or chronic denervation change. No focal fluid collection. No soft tissue abscess or mass. The flexor and extensor tendons are unremarkable. MR/MR foot LT wo/w con IMPRESSION: * A deep soft tissue ulcer is observed medial to the 1st metatarsal head. * Findings are consistent with osteomyelitis involving the medial aspect of the 1st metatarsal head. * No soft tissue abscess. * Diffuse atrophy and fatty replacement of muscles of the foot could be the sequela of chronic disuse of the extremity and/or denervation change.
--- NOTE | 2020-12-25 12:19 | ED.GENADULT ---
HPI - General Adult General Chief complaint: General Medical Stated complaint: Left leg swelling/ Pain Time Seen by Provider: 12/25/20 12:19 Source: patient Mode of arrival: wheelchair Limitations: language barrier History of Present Illness HPI narrative: Daughter speaks canadian. Daughter states that his swelling to his legs is worse and he is oozing from everywhere. Visiting nurse and linux unix system administrator help him. Visiting nurse have wanted him to be evaluated but the patient refused to come to the ED. patinet also increasing confusion. Onset (ago): week(s) Severity: moderate Pain Consistency: constant Relieving factors: none Associated symptoms: shortness of breath Related Data Home Medications Medication Instructions Recorded Confirmed albuterol sulfate 2 puff PO Q4-6H PRN 03/28/20 07/04/20 ascorbic acid (vitamin C) [Vitamin 500 mg PO BID 03/28/20 12/25/20 C] atenolol 25 mg PO DAILY 03/28/20 12/25/20 cholecalciferol (vitamin D3) 25 mcg PO DAILY 03/28/20 12/25/20 ferrous sulfate 325 mg PO BID 03/28/20 12/25/20 fluoxetine 20 mg PO DAILY 03/28/20 12/25/20 gabapentin 300 mg PO BID@0800,1400 03/28/20 12/25/20 gabapentin 600 mg PO BEDTIME 03/28/20 07/04/20 melatonin 5 mg PO BEDTIME 03/28/20 12/25/20 metformin 500 mg PO DAILY@1700 03/28/20 12/25/20 potassium chloride 20 meq PO BEDTIME 03/28/20 12/25/20 risperidone 0.25 mg PO BEDTIME 03/28/20 12/25/20 tamsulosin 0.4 mg PO DAILY@1700 03/28/20 12/25/20 furosemide 80 mg PO QAM 07/04/20 12/25/20 amlodipine 1 tab PO DAILY 12/25/20 12/25/20 chlorhexidine gluconate [Hibiclens] 1 appl TOPICAL DAILY 12/25/20 12/25/20 tramadol 1 tab PO TID PRN 12/25/20 12/25/20 Previous Rx's Medication Instructions Recorded apixaban 5 mg tablet 5 mg PO BID #180 tab 09/21/20 atorvastatin 20 mg tablet 20 mg PO QAM #90 tab 09/21/20 Allergies Allergy/AdvReac Type Severity Reaction Status Date / Time bee pollen [BEE STINGS] Allergy Severe ANAPHYLAXIS Verified 07/04/20 13:06 doxycycline [DOXYCYCLINE] Allergy Unknown ? ALLERGY Verified 07/04/20 13:06 PER WEB DEVELOPMENT INSTRUCTOR SARDINES Allergy Mild ITCHING Uncoded 03/28/20 19:48 bee venom Allergy Unknown unspecified Uncoded 03/28/20 19:48 sardines Allergy Unknown itching Uncoded 03/28/20 19:48 Review of Systems Constitutional: Constitutional: Reports no additional constitutional complaints Eyes: Eyes: Reports no additional eye complaints ENT: Denies dizziness Cardiovascular: Cardiovascular: Reports no additional cardiovascular complaints Respiratory: Respiratory: Reports as per HPI Gastrointestinal: Gastrointestinal: Reports no additional gastrointestinal complaints Musculoskeletal: Musculoskeletal: Reports no additional musculoskeletal complaints Integumentary/Breasts: Skin/Breast: Denies rash Neurologic: Reports system reviewed and no additional complaints, except as documented, Denies dizziness and Denies Sensory deficit (Neuro) Psychiatric: Psychiatric: Denies anxiety PMFSH Past Medical History Medical History Afib Alcoholic cardiomyopathy BPH (benign prostatic hyperplasia) COPD (chronic obstructive pulmonary disease) Diabetes Hyperlipidemia Prostate cancer PVD (peripheral vascular disease) Surgical History Hx of BKA Family History Family History Mother No problems noted. Father No problems noted. Son No problems noted. Son No problems noted. Son No problems noted. Son No problems noted. Daughter No problems noted. Daughter No problems noted. Daughter No problems noted. Social History Social History Household Members: None Housing: Apartment Do you presently have visiting nurse or other home services: Yes (WEB DEVELOPMENT INSTRUCTOR) Alcohol intake: never Advance Directives: Yes Advance Directives on File: Yes Advance Directives Date on File: 03/28/20 service: No Current occupational status: retired Physical Exam Vital Signs: Vital Signs: Last Vital Signs Temp 98.1 F 12/25/20 11:43 Pulse 59 12/25/20 14:27 Resp 13 12/25/20 14:27 BP 146/72 H 12/25/20 14:27 Pulse Ox 93 12/25/20 14:27 Body Mass Index 27.1 Const: Other: chronically ill male Nutritional Appearance: overweight Orientation/consciousness: oriented to person and patient oriented x3 Limitations: no limitations HENMT: Head: Yes normal to inspection Ears: external ears normal General nose exam: Normal external nose present Mouth: Normal oral and palatal mucosa present and oropharynx normal Throat: Yes posterior oropharynx normal Eyes: General: appearance normal, both eyes and all related structures Neck: Other: supple, JVD Neck: Yes normal visual inspection Chest: Chest palpation & inspection: normal inspection of the chest Resp: Other: diffuse crackles over all lung castro Cardio: Other: 3/6 LUCY Jugular venous distension: no JVD Rate: regular rate Rhythm: regular rhythm GI: Inspection: Yes normal to inspection Palpation (GI): Soft to palpation, nontender and No hepatosplenomegaly present Auscultation: normal bowel sounds : General: Yes no CVA tenderness Back/Spine/Pelvis: Back: no CVA tenderness Skin: General skin exam: no rashes or lesions noted Neuro: General: oriented to person and patient oriented x3 Cranial nerves: Yes CN's II-XII intact bilaterally Motor exam (neuro): 5/5 motor strength present throughout Sensory Exam: No Sensory deficit (Neuro) Extrem: Other: right bKA, both legs with edema into the thighs Psych: Appearance: grossly normal Course Reevaluation(s) Reevaluation #1: No acute cardiac event, patient with anasarca will admit for diuresis Time: 14:16 Medical Decision Making Lab Data Result diagrams: 12/25/20 12:50 12/25/20 12:50 Labs: Lab Results 12/25/20 12/25/20 12/25/20 Range/Units 12:50 12:50 12:50 WBC 8.4 (4.8-10.8) X10*3/uL RBC 3.22 L (4.60-5.80) X10*6/uL Hgb 8.6 L (14.0-18.0) g/dl Hct 29.1 L (42-52) % MCV 90.4 (80-98) fL MCH 26.7 L (27.0-33.0) pg MCHC 29.6 L (31.0-36.0) g/dl RDW 15.8 (11.0-16.0) % Plt Count 288 D (160-400) X10*3/uL MPV 9.5 (9.4-12.4) fL Immature Gran % (Auto) 0.4 (0.0-0.4) % Neut % (Auto) 63.9 (45-73) % Lymph % (Auto) 14.3 L (20-40) % Hendry % (Auto) 13.1 H (2-11) % Eos % (Auto) 7.9 H (0-4) % Baso % (Auto) 0.4 (0-2) % Lymph # (Auto) 1.2 (1.2-4.9) X10*3/uL Hendry # (Auto) 1.1 (0.1-1.2) X10*3/uL Eos # (Auto) 0.7 H (0.0-0.4) X10*3/uL Baso # (Auto) 0.0 (0.0-0.2) X10*3/uL Abs Immat Gran (auto) 0.03 (0.00-0.03) X10*3/uL Absolute Neuts (auto) 5.4 (2.0-8.3) X10*3/uL Absolute Nucleated RBC 0.000 (0.0-0.012) X10*3/uL Nucleated RBC % (auto) 0.0 (0.0-0.2) /100WBC Sodium 135 (135-145) mmol/L Potassium 5.4 H (3.3-5.1) mmol/L Chloride 100 (96-108) mmol/L Carbon Dioxide 25 (22-29) mmol/L Anion Gap 15 (12-20) BUN 42 H (9-16) mg/dL Creatinine 1.37 (0.5-1.4) mg/dL Estim Creat Clear Calc 44.0 Estimated GFR 50 Random Glucose 130 H (60-115) mg/dL Calcium 9.4 D (8.4-10.2) mg/dL Troponin I High Sens 6.2 (<3.5-35.0) ng/L B-Natriuretic Peptide 63 (<100) pg/mL ECG Data Attestation: I personally reviewed and interpreted this ECG as follows: Interpretation: atrial fibrillation rate 70, no st or twave changes Discharge Plan Discharge Clinical Impression: Anasarca Patient Disposition: Admitted As Inpatient
--- NOTE | 2020-12-25 12:24 | ECG_ITS ---
Test Reason : CHF Blood Pressure : / mmHG Vent. Rate : 069 BPM Atrial Rate : 070 BPM P-R Int : 000 ms QRS Dur : 096 ms QT Int : 432 ms P-R-T Axes : 000 048 055 degrees QTc Int : 462 ms Atrial fibrillation Abnormal ECG When compared with ECG of 04-JUL-2020 13:27, No significant change was found Referred By: Lee Uriostegui Electronically Signed By:MARLA BARTH MD
[2020-12-25 12:57] LABS: MANUAL DIFF FLAG NO
[2020-12-25] MEDS: Morphine Sulfate 4 MG/ML CARTRIDGE IVPUSH (12:58)
[2020-12-25 13:02] LABS: Basophils Percent Auto 0.4 % (0-2); Eosinophils Absolute Auto 0.7 X10*3/uL (0.0-0.4); Eosinophils Percent Auto 7.9 % (0-4); Hematocrit 29.1 % (42-52); Hemoglobin 8.6 g/dl (14.0-18.0); Imm Gran Abs Auto 0.03 X10*3/uL (0.00-0.03); Imm Gran Pct Auto 0.4 % (0.0-0.4); Lymphocytes Absolute Auto 1.2 X10*3/uL (1.2-4.9); Lymphocytes Percent Auto 14.3 % (20-40); Mean Corpuscular HGB Conc 29.6 g/dl (31.0-36.0); Mean Corpuscular Hemoglobin 26.7 pg (27.0-33.0); Mean Corpuscular Volume 90.4 fL (80-98); Mean Platelet Volume 9.5 fL (9.4-12.4); Monocytes Absolute Auto 1.1 X10*3/uL (0.1-1.2); Monocytes Percent Auto 13.1 % (2-11); Neutrophils Absolute Auto 5.4 X10*3/uL (2.0-8.3); Neutrophils Percent Auto 63.9 % (45-73); Platelet Count 288 X10*3/uL (160-400); Red Blood Count 3.22 X10*6/uL (4.60-5.80); Red Cell Distribution Width 15.8 % (11.0-16.0); White Blood Count 8.4 X10*3/uL (4.8-10.8)
[2020-12-25] MEDS: Furosemide 40 MG/4 ML VIAL IVPUSH (13:02)
[2020-12-25 13:21] LABS: Anion Gap 15 (12-20); Blood Urea Nitrogen 42 mg/dL (9-16); Calcium 9.4 mg/dL (8.4-10.2); Carbon Dioxide 25 mmol/L (22-29); Chloride 100 mmol/L (96-108); Estimated Glomerular Filt Rate 50; Glucose Random 130 mg/dL (60-115); Potassium 5.4 mmol/L (3.3-5.1); Sodium 135 mmol/L (135-145)
[2020-12-25 13:24] LABS: B Type Natriuretic Peptide 63 pg/mL (<100); Troponin-I High Sensitivity 6.2 ng/L (<3.5-35.0)
--- NOTE | 2020-12-25 13:44 | PC.NURSE ---
pt resting in bed. pts son at bedside. breathing even & unlabored.
--- NOTE | 2020-12-25 15:30 | PC.NURSE ---
Pt is asleep in bed in no distress. respirations even and nonlabored.
--- NOTE | 2020-12-25 15:35 | PHA.MEDREC ---
Pharmacy Consult ? Medication Reconciliation Pharmacy has completed the medication reconciliation. PER DAUGHTER LASIX DECREASED FROM 80 TO 60 MG
[2020-12-25 16:18] LABS: Alanine Aminotransferase 12 U/L (0-40); Albumin Level 3.8 g/dL (3.5-5.0); Alkaline Phosphatase 72 U/L (39-117); Aspartate Amino Transferase 22 U/L (5-37); Bilirubin Direct 0.2 mg/dL (0.0-0.5); Bilirubin Total 0.4 mg/dL (0.0-1.0); Total Protein 8.1 g/dL (6.5-8.0)
--- NOTE | 2020-12-25 16:49 | PM.IMHP ---
History of Present Illness Date of Service: 12/25/20 <Gracia Camacho NP - Last Filed: 12/25/20 17:25> Chief Complaint: leg swelling <Gracia Camacho NP - Last Filed: 12/25/20 17:25> 85-year-old [place] Leonean-speaking male presented to the ER with worsening swelling to his left lower extremity with some drainage to left foot wounds. 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 He has a visiting nurse and apparently they had wanted him to come to be evaluated in the hospital however he has refused. Patient reports a history of alcohol but is very vague of how much and when was last time he drank. he denies chest pain, shortness of breath nausea vomiting, diarrhea, fever, chills. He reports that over the last few months he has been to go to [place] and [place]. Potassium noted to be elevated at 5.4, creat 1.37, hemoglobin 8.6, hematocrit 29.1, no transaminitis noted. His blood pressure was noted to be elevated with highest reading of 160/100. he received IV Lasix, morphine while in the ER. Admitted for further management and treatment of left lower extremity edema with vascular wounds. <Gracia Camacho NP - Last Filed: 12/25/20 17:25> [facility] Medical History: Medical History (Updated 12/25/20 @ 16:55 by Gracia Camacho NP) Afib Alcoholic cardiomyopathy BPH (benign prostatic hyperplasia) COPD (chronic obstructive pulmonary disease) Diabetes Hyperlipidemia PAD (peripheral artery disease) Prostate cancer <Gracia Camacho NP - Last Filed: 12/25/20 17:25> Family History: Family History Mother No problems noted. Father No problems noted. Son No problems noted. Son No problems noted. Son No problems noted. Son No problems noted. Daughter No problems noted. Daughter No problems noted. Daughter No problems noted. 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 ALLERGY Verified 07/04/20 13:06 PER BASKETBALLS AND FOOTBALLS REVERSER SARDINES Allergy Mild ITCHING Uncoded 03/28/20 19:48 bee venom Allergy Unknown unspecified Uncoded 03/28/20 19:48 sardines Allergy Unknown itching Uncoded 03/28/20 19:48 <Gracia Camacho NP - Last Filed: 12/25/20 17:25> Active Medications: Current Medications Generic Name Dose Route Start Last Admin Trade Name Freq PRN Reason Stop Dose Admin Acetaminophen 650 mg 12/25/20 16:27 Acetaminophen 325 Mg Tablet PO Q6H PRN Pain, Mild (Pain Scale 1-3) Ondansetron HCl 4 mg 12/25/20 16:27 Ondansetron Hcl 4 Mg/2 Ml Vial IVPUSH Q8H PRN Nausea and Vomiting Pharmacy Consult 1 each 12/25/20 14:58 Consult Rx Perform Med Rec MISCELLANE ONCE PRN Consult order Pharmacy Consult 1 each 12/25/20 15:25 Consult Rx Perform Med Rec MISCELLANE ONCE PRN Consult order Sodium Chloride 3 ml 12/26/20 00:00 0.9 % Sodium Chloride Flush 3 Ml Syringe IVFSH [facility] <Gracia Camacho NP - Last Filed: 12/25/20 17:25> Home medications: Home Medications Medication Instructions Recorded Confirmed Last Taken Type albuterol sulfate 2 puff PO Q4-6H PRN 03/28/20 12/25/20 Unknown History ascorbic acid (vitamin C) [Vitamin 500 mg PO BID 03/28/20 12/25/20 Unknown History C] atenolol 25 mg PO DAILY 03/28/20 12/25/20 Unknown History cholecalciferol (vitamin D3) 25 mcg PO DAILY 03/28/20 12/25/20 Unknown History ferrous sulfate 325 mg PO BID 03/28/20 12/25/20 Unknown History fluoxetine 20 mg PO DAILY 03/28/20 12/25/20 Unknown History gabapentin 300 mg PO BID@0800,1400 03/28/20 12/25/20 Unknown History gabapentin 600 mg PO BEDTIME 03/28/20 12/25/20 Unknown History melatonin 5 mg PO BEDTIME 03/28/20 12/25/20 Unknown History metformin 500 mg PO DAILY@1700 03/28/20 12/25/20 Unknown History potassium chloride 20 meq PO BEDTIME 03/28/20 12/25/20 Unknown History risperidone 0.25 mg PO BEDTIME 03/28/20 12/25/20 Unknown History tamsulosin 0.4 mg PO DAILY@1700 03/28/20 12/25/20 Unknown History furosemide 60 mg PO QAM 07/04/20 12/25/20 Unknown History amlodipine 1 tab PO DAILY 12/25/20 12/25/20 Unknown History chlorhexidine gluconate [Hibiclens] 1 appl TOPICAL DAILY 12/25/20 12/25/20 Unknown History tramadol 1 tab PO TID PRN 12/25/20 12/25/20 Unknown History <Gracia Camacho NP - Last Filed: 12/25/20 17:25> Physical Exam Vital Signs and Narrative: Vital Signs: Last Vital Signs Temp 98.2 F 12/25/20 16:04 Pulse 81 12/25/20 16:04 Resp 16 12/25/20 16:04 BP 160/100 H 12/25/20 16:04 Pulse Ox 95 12/25/20 16:04 Body Mass Index 27.1 <Gracia Camacho NP - Last Filed: 12/25/20 17:25> Appearing in no acute distress head is normocephalic atraumatic eyes pupils are PERRLA sclera is anicteric mouth throat mucous membranes are intact and moist neck is supple no lymphadenopathy, no JVD noted lung sounds are clear to auscultation heart regular rate rhythm, clear S1, S2 positive bowel sounds, abdomen is soft, nontender neuro patient is alert x3, no focal deficits right lower extremity has some stasis dermatitis GI as to the bottom of the amputation Left lower extremity has chronic stasis with multiple ulcers <Gracia Camacho NP - Last Filed: 12/25/20 17:25> Results Labs CBC and Chem 7: : 12/25/20 12:50 12/25/20 12:50 <Gracia Camacho NP - Last Filed: 12/25/20 17:25> Labs: Laboratory Results - last 24 hr 12/25/20 12/25/20 12/25/20 12:50 12:50 12:50 MCV 90.4 MCH 26.7 L MCHC 29.6 L RDW 15.8 Plt Count 288 D MPV 9.5 Immature Gran % (Auto) 0.4 Neut % (Auto) 63.9 Lymph % (Auto) 14.3 L Schuyler % (Auto) 13.1 H Eos % (Auto) 7.9 H Baso % (Auto) 0.4 Lymph # (Auto) 1.2 Schuyler # (Auto) 1.1 Eos # (Auto) 0.7 H Baso # (Auto) 0.0 Abs Immat Gran (auto) 0.03 Absolute Neuts (auto) 5.4 Absolute Nucleated RBC 0.000 Nucleated RBC % (auto) 0.0 Anion Gap 15 Estim Creat Clear Calc 44.0 Estimated GFR 50 Random Glucose 130 H Calcium 9.4 D Total Bilirubin 0.4 Direct Bilirubin 0.2 AST 22 D ALT 12 Alkaline Phosphatase 72 Troponin I High Sens 6.2 B-Natriuretic Peptide 63 Total Protein 8.1 H Albumin 3.8 <Gracia Camacho NP - Last Filed: 12/25/20 17:25> Assessment and Plan (1) Stasis dermatitis: Status: Acute <Gracia Camacho NP - Last Filed: 12/25/20 17:25> 85-year-old [place] Leonean-speaking male admitted with left lower extremity edema with history of peripheral arterial disease. Patient reports that this swelling has been ongoing over the last several months but worse over the last several weeks. 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 Edema, left lower extremity normal BNP, does not appear to be fluid overloaded recent travel on an airplane history of peripheral arterial disease will obtain arterial and venous ultrasound of left lower extremity Will consult vascular surgery in light of history of peripheral arterial disease continue home dose of lasix Diabetic foot wounds/Vascular wounds multiple areas of wounds on his left foot, none appear to be infected Will hold off on antibiotics at this time Vascular surgery consultation cleanse foot, non stick dry clean dressing Hyperkalemia Hold home potassium Follow BMP Hypertension. Stable blood pressure Continue amlodipine Atrial fibrillation. no exacerbation Continue Eliquis and atenolol Diabetes mellitus. Sliding scale, ADA diet Diabetic neuropathy Continue gabapentin Normocytic anemia. No signs of bleeding Continue iron supplementation DVT prophylaxis with Sada Attending Dr. Roberson Full code <Gracia Camacho NP - Last Filed: 12/25/20 17:25> Quality Stroke Does the patient have a stroke diagnosis?: No <Gracia Camacho NP - Last Filed: 12/25/20 17:25> VTE Prior VTE?: No <Gracia Camacho NP - Last Filed: 12/25/20 17:25> VTE Risk Level:: Medical - moderate - high <Gracia Camacho NP - Last Filed: 12/25/20 17:25> VTE Device Contraindication: Treatment Not Indicated <Gracia Camacho NP - Last Filed: 12/25/20 17:25> VTE Drug Contraindication: N/A - Med Ordered <Gracia Camacho NP - Last Filed: 12/25/20 17:25>
[2020-12-25] MEDS: Acetaminophen 325 MG TABLET 650 MG PO (17:06)
[2020-12-25 17:31] LABS: COVID-19 Test Negative (Negative); IDNOW Serial# 9DD0AD1C
--- NOTE | 2020-12-25 17:50 | PM.EVENT ---
Event Note Date of Service: 12/25/20 Event Note: This patient is seen and examined with APC. Patient came to the hospital with the left leg swelling and some pain also has ulcers Admission was given for anasarca but I do not believe patient has anasarca. He has only left leg swelling. 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 Lab imaging, EKG reviewed. Checks cxrx-ray report still pending but grossly looks fine We have ordered arterial and venous duplex of lower extremity to evaluate. Patient's albumin is fine, renal function also seems to be near baseline and liver functions are also fine Just have leg edema but BNP is 60 suspicion of acute on chronic CHF is low. Physical exam : Cvs: rrr, [id number] , no murmur res: clear to auscultation ,no rhonchii or wheezing abd: no rebound or guarding ,nt, bs present. ext : Has a right BKA, left lower extremity has ulcers and skin sloughing and edema neuro: axo3 , nonfocal. assessment and plan coordinated in APCs note, Agree with the plan in addition: left extremities ulcer ,? pad : will add ordered arterial and venous duplex of lower extremity to evaluate. will add wound care eval has ulcer ?chronic -may need vascular eval
--- NOTE | 2020-12-25 18:30 | PC.NURSE ---
Hospitalist at bedside talking with patient with use of an tutoring clinician. Pt is alert and talking.
--- NOTE | 2020-12-25 18:45 | PC.NURSE ---
Patient did not like what was served on dinner tray. Patient given a sandwich to eat per his request and milk to drink,
--- NOTE | 2020-12-25 19:14 | MHC.CM.PN ---
CM met with pt with medical device sales representative. Pt is Grenadian speaking only. IMM reviewed and signed per protocol 12/25/20@1855. Pt A&Ox3. HCP/daughter, Abena Camacho ([phone]) is on file. Daughter is in [place]. Daughter Gren[place] speaking only. CM will contact when specification writer available. Provider did speak with daughter. Pt lives alone. Has AKA on R and multiple ulcers on left foot/leg. Pt has wheelchair, DM supplies and bathroom handicapped accommodations. Pt reports having a daily LEAD DIE MOLDER and correction. Does not know agency. CM to call [facility] in the am to verify services. Pt quite concerned that he cannot leave his apartment for long and wants to know how long he will be in the hospital. CM explained that is up to the doctor. D/C plan in pending wound assessments and hospital stay. STR vs home with continuation of services. ? wound care center. CM to follow for d/c needs.
--- NOTE | 2020-12-25 19:42 | PC.NURSE ---
Pt moaning with LLE pain, extremity repositioned to greater elevation but w/o good effect. ls slight congestion in bases. skin pale warm. taught and edenamous in BLE with weaping wounds below both knees. pinkl blanchable nereyda prominence on coccyx. repositioned to left side lying.
[2020-12-25 20:27] LABS: Glucose, Whole Blood 146 mg/dL (60-115)
[2020-12-25] MEDS: Ferrous Sulfate 324 MG TABLET.DR 325 MG PO (20:56)
[2020-12-25] MEDS: Ascorbic Acid 500 MG TABLET PO (20:56)
[2020-12-25] MEDS: Sodium Polystyrene Sulfon/Sorb 15 GM/60 ML ORAL.SUSP PO (20:56)
[2020-12-25] MEDS: HYDROmorphone HCl 0.5 MG/0.5 ML SYRINGE IVPUSH (20:57)
[2020-12-25] MEDS: Gabapentin 600 MG TABLET PO (20:57)
[2020-12-25] MEDS: Atorvastatin Calcium 20 MG TABLET PO (20:57)
[2020-12-25] MEDS: Apixaban 5 MG TABLET PO (20:57)
[2020-12-25] MEDS: risperiDONE 0.25 MG TABLET PO (22:13)
[2020-12-25] MEDS: 0.9 % Sodium Chloride Flush 3 ML SYRINGE IVFLUSH (23:23)
[2020-12-26] VITALS (7 sets, daily range): BP systolic 99–159; BP diastolic 66–72; PULSE 78–93; RESP 16–18; TEMP 36–36.9; O2SAT 95–99; BMI 27.1
[2020-12-26] MEDS: HYDROmorphone HCl 0.5 MG/0.5 ML SYRINGE IVPUSH ×5 (02:14→20:16)
--- NOTE | 2020-12-26 06:24 | PC.NURSE ---
diez catheter removed at 0620.
[2020-12-26 06:59] LABS: MANUAL DIFF FLAG NO
[2020-12-26 07:08] LABS: Basophils Percent Auto 0.4 % (0-2); Eosinophils Absolute Auto 0.4 X10*3/uL (0.0-0.4); Eosinophils Percent Auto 3.9 % (0-4); Hematocrit 28.5 % (42-52); Hemoglobin 8.5 g/dl (14.0-18.0); Imm Gran Abs Auto 0.04 X10*3/uL (0.00-0.03); Imm Gran Pct Auto 0.4 % (0.0-0.4); Lymphocytes Absolute Auto 1.1 X10*3/uL (1.2-4.9); Mean Corpuscular HGB Conc 29.8 g/dl (31.0-36.0); Mean Corpuscular Hemoglobin 26.8 pg (27.0-33.0); Mean Corpuscular Volume 89.9 fL (80-98); Monocytes Absolute Auto 1.2 X10*3/uL (0.1-1.2); Monocytes Percent Auto 11.9 % (2-11); Neutrophils Absolute Auto 7.2 X10*3/uL (2.0-8.3); Neutrophils Percent Auto 72.4 % (45-73); Platelet Count 263 X10*3/uL (160-400); Red Blood Count 3.17 X10*6/uL (4.60-5.80); Red Cell Distribution Width 15.4 % (11.0-16.0)
[2020-12-26] MEDS: 0.9 % Sodium Chloride Flush 3 ML SYRINGE IVFLUSH ×3 (07:21→20:17)
[2020-12-26 07:39] LABS: Glucose, Whole Blood 112 mg/dL (60-115)
[2020-12-26 07:43] LABS: Anion Gap 16 (12-20); Blood Urea Nitrogen 42 mg/dL (9-16); Calcium 8.8 mg/dL (8.4-10.2); Carbon Dioxide 23 mmol/L (22-29); Chloride 105 mmol/L (96-108); Creatinine Clr Calc Pharmacy 50.2; Estimated Glomerular Filt Rate 58; Glucose Random 121 mg/dL (60-115); Potassium 5.1 mmol/L (3.3-5.1); Sodium 139 mmol/L (135-145)
[2020-12-26] MEDS: FLUoxetine HCl 20 MG CAPSULE PO (07:54)
[2020-12-26] MEDS: Gabapentin 300 MG CAPSULE PO ×2 (07:54→14:34)
[2020-12-26] MEDS: Cholecalciferol (Vitamin D3) 25 MCG TABLET PO (07:54)
[2020-12-26] MEDS: Apixaban 5 MG TABLET PO ×2 (07:54→20:16)
[2020-12-26] MEDS: atenoloL 25 MG TABLET PO (07:54)
[2020-12-26] MEDS: Ascorbic Acid 500 MG TABLET PO ×2 (07:54→20:16)
[2020-12-26] MEDS: amLODIPine Besylate 10 MG TABLET PO (07:54)
[2020-12-26] MEDS: Ferrous Sulfate 324 MG TABLET.DR 325 MG PO ×2 (07:55→20:16)
[2020-12-26] MEDS: Furosemide 20 MG TABLET 60 MG PO (07:55)
--- NOTE | 2020-12-26 09:06 | MHC.CM.PN ---
EMR REVIEWED, PT AWAITING CONSULT W/VASCULAR SURGEON, NO PLAN FOR D/C AT THIS TIME. CM RECEIVED A CALL FROM PT'S HOME HEALTH AGENCY AT [phone], PER ROSIBEL PT RECEIVES [facility] BID 7 DAYS/WK, REQUESTING WE PLEASE CALL ROSIBEL/ILEANA [phone] WHEN PT IS GOING TO BE DISCHARGED SO THEY CAN ARRANGE FOR SOMEONE TO BE THERE WHEN HE ARRIVES HOME, PER ROSIBEL THEY HAVE BEEN HAVING DIFFICULTY GETTING IN TOUCH W/PT'S FAMILY. REFERRAL ALSO SENT TO [facility] TO DETERMINE IF THEY PROVIDE P'S VNA SERVICE, MESSAGE ALSO LEFT W/[facility] AT [phone] . CM TO CONT TO FOLLOW D/C NEEDS.
--- NOTE | 2020-12-26 12:19 | P.CONGS_ITS ---
History of Present Illness Consult details Consult date: 12/26/20 Reason for consult: wound care Narrative: 85-year-old gentleman well known to me for prior right-sided BKA presents to the hospital for nonhealing left foot ulcer and significant cellulitis of the left lower extremity. This has been progressing for sometime. The patient is somewhat uncomfortable and unable to get a true history of what exactly happened. Had seen me back in March and there was some mild cellulitis at that point. Was discovered he had an JULIO of 0.55 at that time. We were managing him conservatively. He now presents to us for vascular evaluation. Review of Systems Review of Systems: Yes all other systems are reviewed and are negative Constitutional: Constitutional: Reports no additional constitutional complaints ENT: Reports Normal hearing present Cardiovascular: Cardiovascular: Denies chest pain, Denies chest pain at rest, Denies chest pain with activity and Denies pedal edema Respiratory: Respiratory: Denies cough Gastrointestinal: Gastrointestinal: Denies abdominal pain Musculoskeletal: Musculoskeletal: Denies abnormal gait, Denies muscle cramps and Denies radiating pain into limb Integumentary/Breasts: Skin/Breast: Denies skin ulcer and Denies wounds Neurologic: Reports Normal hearing present and Denies abnormal gait Psychiatric: Psychiatric: Reports no additional psychiatric complaints PMFSH Past Medical History Medical History (Updated 12/25/20 @ 16:55 by Gracia Camacho NP) Afib Alcoholic cardiomyopathy BPH (benign prostatic hyperplasia) COPD (chronic obstructive pulmonary disease) Diabetes Hyperlipidemia PAD (peripheral artery disease) Prostate cancer Family History Family History Mother No problems noted. Father No problems noted. Son No problems noted. Son No problems noted. Son No problems noted. Son No problems noted. Daughter No problems noted. Daughter No problems noted. Daughter No problems noted. Surgical History Surgical History (Updated 12/25/20 @ 16:57 by Gracia Camacho NP) H/O abdominal surgery H/O angioplasty H/O cataract extraction Hx of BKA Social History Social History Household Members: None Housing: Apartment Do you presently have visiting nurse or other home services: Yes Alcohol intake: never Patient Tobacco Use Status: Never used Tobacco Use of substances other than those prescribed or required for medical reasons: No Currently Displaying Signs/Symptoms of Drug Intoxication Withdrawal: No Have you been hit, kicked, punched, or otherwise hurt by someone within the past year? If so, by whom?: No Do you feel safe in your current relationship?: No Current Relationship Is there a partner from a previous relationship who is making you feel unsafe now?: No Are you made to feel afraid or neglected: No Advance Directives: Yes Advance Directives on File: Yes Advance Directives Date on File: 03/28/20 Do you have thoughts of harming others: None Do you have a plan to hurt others: No Plan Recently lost weight without trying: No How much weight loss: Not applicable Eating poorly because of decreased appetite: No Nutrition screen score: 0 Nutrition Risks: No Nutritional Risk Poor oral hygiene: No service: No Current occupational status: retired [employer] Allergies Allergy/AdvReac Type Severity Reaction Status Date / Time bee pollen [BEE STINGS] Allergy Severe ANAPHYLAXIS Verified 07/04/20 13:06 doxycycline [DOXYCYCLINE] Allergy Unknown ? ALLERGY Verified 07/04/20 13:06 PER SAFETY COMPLIANCE SPECIALIST [place] Allergy Mild ITCHING Uncoded 03/28/20 19:48 bee venom Allergy Unknown unspecified Uncoded 03/28/20 19:48 sardines Allergy Unknown itching Uncoded 03/28/20 19:48 Active Medications: Current Medications Generic Name Dose Route Start Last Admin Trade Name Freq PRN Reason Stop Dose Admin Acetaminophen 650 mg 12/25/20 16:27 12/25/20 17:06 Acetaminophen 325 Mg Tablet PO 650 mg Q6H PRN Administration Pain, Mild (Pain Scale 1-3) Amlodipine Besylate 10 mg 12/26/20 09:00 12/26/20 07:54 Amlodipine Besylate 10 Mg Tablet PO 10 mg DAILY BREE Administration Protocol Apixaban 5 mg 12/25/20 21:00 12/26/20 07:54 Apixaban 5 Mg Tablet PO 5 mg BID BREE Administration Ascorbic Acid 500 mg 12/25/20 21:00 12/26/20 07:54 Ascorbic Acid 500 Mg Tablet PO 500 mg BID BREE Administration Atenolol 25 mg 12/26/20 09:00 12/26/20 07:54 Atenolol 25 Mg Tablet PO 25 mg DAILY BREE Administration Protocol Atorvastatin Calcium 20 mg 12/25/20 21:00 12/25/20 20:57 Atorvastatin Calcium 20 Mg Tablet PO 20 mg BEDTIME BREE Administration Ferrous Sulfate 325 mg 12/25/20 21:00 12/26/20 07:55 Ferrous Sulfate 324 Mg Tablet.Dr PO 325 mg BID BREE Administration Fluoxetine HCl 20 mg 12/26/20 09:00 12/26/20 07:54 Fluoxetine Hcl 20 Mg Capsule PO 20 mg DAILY BREE Administration Furosemide 60 mg 12/26/20 09:00 12/26/20 07:55 Furosemide 20 Mg Tablet PO 60 mg DAILY BREE Administration Protocol Gabapentin 300 mg 12/26/20 08:00 12/26/20 07:54 Gabapentin 300 Mg Capsule PO 300 mg BID@0800,1400 BREE Administration Gabapentin 600 mg 12/25/20 21:00 12/25/20 20:57 Gabapentin 600 Mg Tablet PO 600 mg BEDTIME BREE Administration Hydromorphone HCl 0.5 mg 12/25/20 20:15 12/26/20 10:38 Hydromorphone Hcl 0.5 Mg/0.5 Ml Syringe IVPUSH 0.5 mg Q4H PRN Administration Breakthrough Pain Insulin Human Lispro 0 unit 12/25/20 21:00 12/26/20 07:19 Insulin Lispro 100 Unit/Ml 3 Ml Vial SUBCUT Not Given QIDACHS [facility] Protocol Ondansetron HCl 4 mg 12/25/20 16:27 Ondansetron Hcl 4 Mg/2 Ml Vial IVPUSH Q8H PRN Nausea and Vomiting Pharmacy Consult 1 each 12/25/20 14:58 Consult Rx Perform Med Rec MISCELLANE ONCE PRN Consult order Pharmacy Consult 1 each 12/25/20 15:25 Consult Rx Perform Med Rec MISCELLANE ONCE PRN Consult order Risperidone 0.25 mg 12/25/20 21:00 12/25/20 22:13 Risperidone 0.25 Mg Tablet PO 0.25 mg BEDTIME BREE Administration Sodium Chloride 3 ml 12/26/20 00:00 12/26/20 07:21 0.9 % Sodium Chloride Flush 3 Ml Syringe IVFLUSH 3 ml QSHIFT BREE Administration Tamsulosin HCl 0.4 mg 12/26/20 17:00 Tamsulosin Hcl 0.4 Mg Capsule PO DAILY@1700 BREE Vitamin D 25 mcg 12/26/20 09:00 12/26/20 07:54 Cholecalciferol (Vitamin D3) 25 Mcg Tablet PO 25 mcg DAILY BREE Administration Home Medications Medication Instructions Recorded Confirmed Last Taken Type albuterol sulfate 2 puff PO Q4-6H PRN 03/28/20 12/25/20 Unknown History ascorbic acid (vitamin C) [Vitamin 500 mg PO BID 03/28/20 12/25/20 Unknown History C] atenolol 25 mg PO DAILY 03/28/20 12/25/20 Unknown History cholecalciferol (vitamin D3) 25 mcg PO DAILY 03/28/20 12/25/20 Unknown History ferrous sulfate 325 mg PO BID 03/28/20 12/25/20 Unknown History fluoxetine 20 mg PO DAILY 03/28/20 12/25/20 Unknown History gabapentin 300 mg PO BID@0800,1400 03/28/20 12/25/20 Unknown History gabapentin 600 mg PO BEDTIME 03/28/20 12/25/20 Unknown History melatonin 5 mg PO BEDTIME 03/28/20 12/25/20 Unknown History metformin 500 mg PO DAILY@1700 03/28/20 12/25/20 Unknown History potassium chloride 20 meq PO BEDTIME 03/28/20 12/25/20 Unknown History risperidone 0.25 mg PO BEDTIME 03/28/20 12/25/20 Unknown History tamsulosin 0.4 mg PO DAILY@1700 03/28/20 12/25/20 Unknown History furosemide 60 mg PO QAM 07/04/20 12/25/20 Unknown History amlodipine 1 tab PO DAILY 12/25/20 12/25/20 Unknown History chlorhexidine gluconate [Hibiclens] 1 appl TOPICAL DAILY 12/25/20 12/25/20 Unknown History tramadol 1 tab PO TID PRN 12/25/20 12/25/20 Unknown History Physical Exam Vital Signs: Vital Signs: Last Vital Signs Temp 98.1 F 12/26/20 12:00 Pulse 87 12/26/20 12:00 Resp 18 12/26/20 12:00 BP 156/72 H 12/26/20 12:00 Pulse Ox 95 12/26/20 12:00 Body Mass Index 27.1 Const: General: cooperative, healthy appearing and comfortable Orientation/consciousness: oriented to person, oriented to place and oriented to time HENMT: Head: Yes normal to inspection Neck: Neck: Yes normal visual inspection Carotids: no bruits Chest: Chest palpation & inspection: normal inspection of the chest Resp: Effort & Inspection: normal respiratory effort and able to speak in complete sentences Auscultation: clear to auscultation bilaterally, no crackles, no rales, no rhonchi and no wheezes Cardio: Rate: regular rate Rhythm: regular rhythm Heart sounds: S1 no rmal heart sound present and S2 normal heart sound present Bruits: no carotid bruits Peripheral pulses: Peripheral pulses 2+ throughout GI: Inspection: Yes normal to inspection Skin: Wounds: amputation site (Cellulitis on right BKA) and wounds noted (Left foot between 2nd and 3rd toe; cellulitis just to below-knee) Hair: normal Neuro: General: oriented to person, oriented to place and oriented to time Cranial nerves: Yes CN's II-XII intact bilaterally and Yes Normal hearing present Cognition (Neuro): normal cognition Motor exam (neuro): 5/5 motor strength present throughout Extrem: Other: venous exam: No significant superficial varicosities or spider telangiectasias, minimal edema General: No clubbing, No cyanosis and No edema Psych: Appearance: grossly normal Mental Status: mental status grossly normal Speech and movement: Normal speech and movement present Results Labs Result diagrams: 12/26/20 06:28 12/26/20 06:28 Labs: Abnormal lab results 12/25/20 12/25/20 12/25/20 Range/Units 12:50 12:50 20:23 RBC 3.22 L (4.60-5.80) X10*6/uL Hgb 8.6 L (14.0-18.0) g/dl Hct 29.1 L (42-52) % MCH 26.7 L (27.0-33.0) pg MCHC 29.6 L (31.0-36.0) g/dl Lymph % (Auto) 14.3 L (20-40) % Edwards % (Auto) 13.1 H (2-11) % Eos % (Auto) 7.9 H (0-4) % Lymph # (Auto) (1.2-4.9) X10*3/uL Eos # (Auto) 0.7 H (0.0-0.4) X10*3/uL Abs Immat Gran (auto) (0.00-0.03) X10*3/uL Potassium 5.4 H (3.3-5.1) mmol/L BUN 42 H (9-16) mg/dL POC Glucose 146 H (60-115) mg/dL Random Glucose 130 H (60-115) mg/dL Total Protein 8.1 H (6.5-8.0) g/dL 12/26/20 12/26/20 Range/Units 06:28 06:28 RBC 3.17 L (4.60-5.80) X10*6/uL Hgb 8.5 L (14.0-18.0) g/dl Hct 28.5 L (42-52) % MCH 26.8 L (27.0-33.0) pg MCHC 29.8 L (31.0-36.0) g/dl Lymph % (Auto) 11.0 L (20-40) % Edwards % (Auto) 11.9 H (2-11) % Eos % (Auto) (0-4) % Lymph # (Auto) 1.1 L (1.2-4.9) X10*3/uL Eos # (Auto) (0.0-0.4) X10*3/uL Abs Immat Gran (auto) 0.04 H (0.00-0.03) X10*3/uL Potassium (3.3-5.1) mmol/L BUN 42 H (9-16) mg/dL POC Glucose (60-115) mg/dL Random Glucose 121 H (60-115) mg/dL Total Protein (6.5-8.0) g/dL Short CBC 12/25/20 12/26/20 Range/Units 12:50 06:28 WBC 8.4 10.0 (4.8-10.8) X10*3/uL Hgb 8.6 L 8.5 L (14.0-18.0) g/dl Hct 29.1 L 28.5 L (42-52) % Plt Count 288 D 263 (160-400) X10*3/uL BMP 12/25/20 12/26/20 12:50 06:28 Sodium 135 139 Potassium 5.4 H 5.1 Chloride 100 105 Carbon Dioxide 25 23 BUN 42 H 42 H Creatinine 1.37 1.20 Calcium 9.4 D 8.8 D Liver Function 12/25/20 Range/Units 12:50 Total Bilirubin 0.4 (0.0-1.0) mg/dL Direct Bilirubin 0.2 (0.0-0.5) mg/dL AST 22 D (5-37) U/L ALT 12 (0-40) U/L Alkaline Phosphatase 72 (39-117) U/L Albumin 3.8 (3.5-5.0) g/dL All other labs normal. Assessment and Plan (1) PAD (peripheral artery disease): Status: Acute In short patient has nonhealing left foot ulceration. He appears to be somewhat in extremities. Uncomfortable. Did discuss his case with the medical team. At the current time I would like to manage this as conservatively as possible. Would like the cellulitis to resolve prior to any intervention on the left side. Due to his overall status he is at a high risk for BKA on the left side. We may need to have a discussion with the family regarding his overall status and level of care. We will continue to monitor his status with you. Procedures Date of Service Date of Service: 12/26/20
[2020-12-26 12:27] LABS: Glucose, Whole Blood 133 mg/dL (60-115)
--- NOTE | 2020-12-26 15:14 | MHC.CLN ---
NUTRITION CONSULT SEE CLINICAL NUTRITION ASSESSMENT. CHANGED DIET TO DIABETIC 2200 KCAL AND ADDED GLUCERNA SUPPLEMENT 240 ML BID. REDDENED SKIN AND OBSERVED LIMITED INTAKE AT LUNCH. CONTINUE TO FOLLOW.
--- NOTE | 2020-12-26 15:35 | P.PNIM_ITS ---
Progress Note: A&P (1) Anasarca: Status: Acute Assessment and Plan: 85-year-old Serbian-speaking male admitted with left lower extremity edema with history of peripheral arterial disease. Patient reports that this swelling has been ongoing over the last several months but worse over the last several weeks. 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 Diabetic foot wounds/Vascular wounds, Edema, left lower extremity normal BNP, does not appear to be fluid overloaded, multiple areas of wounds on his left foot, none appear to be infected recent travel on an airplane history of peripheral arterial disease arterial and venous ultrasound of left lower extremity neg for acute abnormality seen evaluated by vascular surgery with no recommendation for surgery, managed conservatively continue home dose of lasix Wound care consult pending Will hold off on antibiotics at this time cleanse foot, non stick dry clean dressing Hyperkalemia Hold home potassium Follow BMP Hypertension. Stable blood pressure Continue amlodipine Atrial fibrillation. no exacerbation Continue Eliquis and atenolol Diabetes mellitus. Sliding scale, ADA diet Diabetic neuropathy Continue gabapentin Normocytic anemia. No signs of bleeding Continue iron supplementation DVT prophylaxis with Sada Attending Dr. Holland Full code Subjective Subjective Date of Service: 12/29/20 Interval History: Follow up wound to foot pain Physical Exam Vital Signs: Vital Signs: Last Vital Signs Temp 97.4 F 12/26/20 15:05 Pulse 84 12/26/20 15:05 Resp 18 12/26/20 15:05 BP 150/70 H 12/26/20 15:05 Pulse Ox 95 12/26/20 15:05 Body Mass Index 27.1 Objective Data Current Medications Generic Name Dose Route Start Last Admin Trade Name Andreina PRN Reason Stop Dose Admin Acetaminophen 650 mg 12/25/20 16:27 12/25/20 17:06 Acetaminophen 325 Mg Tablet PO 650 mg Q6H PRN Administration Pain, Mild (Pain Scale 1-3) Amlodipine Besylate 10 mg 12/26/20 09:00 12/26/20 07:54 Amlodipine Besylate 10 Mg Tablet PO 10 mg DAILY BREE Administration Protocol Apixaban 5 mg 12/25/20 21:00 12/26/20 07:54 Apixaban 5 Mg Tablet PO 5 mg BID BREE Administration Ascorbic Acid 500 mg 12/25/20 21:00 12/26/20 07:54 Ascorbic Acid 500 Mg Tablet PO 500 mg BID BREE Administration Atenolol 25 mg 12/26/20 09:00 12/26/20 07:54 Atenolol 25 Mg Tablet PO 25 mg DAILY BREE Administration Protocol Atorvastatin Calcium 20 mg 12/25/20 21:00 12/25/20 20:57 Atorvastatin Calcium 20 Mg Tablet PO 20 mg BEDTIME BREE Administration Ferrous Sulfate 325 mg 12/25/20 21:00 12/26/20 07:55 Ferrous Sulfate 324 Mg Tablet.Dr PO 325 mg BID BREE Administration Fluoxetine HCl 20 mg 12/26/20 09:00 12/26/20 07:54 Fluoxetine Hcl 20 Mg Capsule PO 20 mg DAILY BREE Administration Furosemide 60 mg 12/26/20 09:00 12/26/20 07:55 Furosemide 20 Mg Tablet PO 60 mg DAILY BREE Administration Protocol Gabapentin 300 mg 12/26/20 08:00 12/26/20 14:34 Gabapentin 300 Mg Capsule PO 300 mg BID@0800,1400 BREE Administration Gabapentin 600 mg 12/25/20 21:00 12/25/20 20:57 Gabapentin 600 Mg Tablet PO 600 mg BEDTIME BREE Administration Hydromorphone HCl 0.5 mg 12/25/20 20:15 12/26/20 14:34 Hydromorphone Hcl 0.5 Mg/0.5 Ml Syringe IVPUSH 0.5 mg Q4H PRN Administration Breakthrough Pain Insulin Human Lispro 0 unit 12/25/20 21:00 12/26/20 12:24 Insulin Lispro 100 Unit/Ml 3 Ml Vial SUBCUT Not Given QIDACHS [facility] Protocol Ondansetron HCl 4 mg 12/25/20 16:27 Ondansetron Hcl 4 Mg/2 Ml Vial IVPUSH Q8H PRN Nausea and Vomiting Pharmacy Consult 1 each 12/25/20 14:58 Consult Rx Perform Med Rec MISCELLANE ONCE PRN Consult order Pharmacy Consult 1 each 12/25/20 15:25 Consult Rx Perform Med Rec MISCELLANE ONCE PRN Consult order Risperidone 0.25 mg 12/25/20 21:00 12/25/20 22:13 Risperidone 0.25 Mg Tablet PO 0.25 mg BEDTIME BREE Administration Sodium Chloride 3 ml 12/26/20 00:00 12/26/20 14:37 0.9 % Sodium Chloride Flush 3 Ml Syringe IVFLUSH 3 ml QSHIFT BREE Administration Tamsulosin HCl 0.4 mg 12/26/20 17:00 Tamsulosin Hcl 0.4 Mg Capsule PO DAILY@1700 [facility] Vitamin D 25 mcg 12/26/20 09:00 12/26/20 07:54 Cholecalciferol (Vitamin D3) 25 Mcg Tablet PO 25 mcg DAILY BREE Administration Labs CBC & Chem 7: 12/28/20 07:07 12/28/20 07:07 Labs: Laboratory Results - last 24 hr 12/25/20 12/25/20 12/25/20 12:50 17:03 20:23 MCV MCH MCHC RDW Plt Count MPV Immature Gran % (Auto) Neut % (Auto) Lymph % (Auto) [place] % (Auto) Eos % (Auto) Baso % (Auto) Lymph # (Auto) [place] # (Auto) Eos # (Auto) Baso # (Auto) Abs Immat Gran (auto) Absolute Neuts (auto) Absolute Nucleated RBC Nucleated RBC % (auto) Anion Gap Estim Creat Clear Calc Estimated GFR POC Glucose 146 H Random Glucose Calcium Total Bilirubin 0.4 Direct Bilirubin 0.2 AST 22 D ALT 12 Alkaline Phosphatase 72 Total Protein 8.1 H Albumin 3.8 COVID-19 ([facility]PIDIO) Negative COVID-19 Clin Com See Note 12/26/20 12/26/20 12/26/20 06:28 06:28 07:12 MCV 89.9 MCH 26.8 L MCHC 29.8 L RDW 15.4 Plt Count 263 MPV 10.0 Immature Gran % (Auto) 0.4 Neut % (Auto) 72.4 Lymph % (Auto) 11.0 L [place] % (Auto) 11.9 H Eos % (Auto) 3.9 Baso % (Auto) 0.4 Lymph # (Auto) 1.1 L [place] # (Auto) 1.2 Eos # (Auto) 0.4 Baso # (Auto) 0.0 Abs Immat Gran (auto) 0.04 H Absolute Neuts (auto) 7.2 Absolute Nucleated RBC 0.000 Nucleated RBC % (auto) 0.0 Anion Gap 16 Estim Creat Clear Calc 50.2 Estimated GFR 58 POC Glucose 112 Random Glucose 121 H Calcium 8.8 D Total Bilirubin Direct Bilirubin AST ALT Alkaline Phosphatase Total Protein Albumin COVID-19 ([facility]IO) COVID-19 Clin Com 12/26/20 12:23 MCV MCH MCHC RDW Plt Count MPV Immature Gran % (Auto) Neut % (Auto) Lymph % (Auto) [place] % (Auto) Eos % (Auto) Baso % (Auto) Lymph # (Auto) [place] # (Auto) Eos # (Auto) Baso # (Auto) Abs Immat Gran (auto) Absolute Neuts (auto) Absolute Nucleated RBC Nucleated RBC % (auto) Anion Gap Estim Creat Clear Calc Estimated GFR POC Glucose 133 H Random Glucose Calcium Total Bilirubin Direct Bilirubin AST ALT Alkaline Phosphatase Total Protein Albumin COVID-19 ([facility]IO) COVID-19 Clin Com Quality Stroke Does the patient have a stroke diagnosis?: No VTE Prior VTE?: No VTE Risk Level:: Medical - moderate - high VTE Device Contraindication: Treatment Not Indicated VTE Drug Contraindication: N/A - Med Ordered
[2020-12-26 16:11] LABS: Glucose, Whole Blood 124 mg/dL (60-115)
[2020-12-26] MEDS: oxyCODONE HCl Immed Release 5 MG TABLET PO (17:35)
[2020-12-26] MEDS: Tamsulosin HCL 0.4 MG CAPSULE PO (17:35)
[2020-12-26] MEDS: Atorvastatin Calcium 20 MG TABLET PO (20:16)
[2020-12-26] MEDS: risperiDONE 0.25 MG TABLET PO (20:16)
[2020-12-26] MEDS: Gabapentin 600 MG TABLET PO (20:16)
[2020-12-26 20:36] LABS: Glucose, Whole Blood 128 mg/dL (60-115)
[2020-12-27] VITALS (10 sets, daily range): BP systolic 110–180; BP diastolic 49–96; PULSE 70–95; RESP 16–18; TEMP 36–37; O2SAT 92–95
[2020-12-27] MEDS: HYDROmorphone HCl 0.5 MG/0.5 ML SYRINGE IVPUSH ×2 (03:55→21:00)
[2020-12-27 07:37] LABS: Glucose, Whole Blood 117 mg/dL (60-115)
[2020-12-27] MEDS: Ferrous Sulfate 324 MG TABLET.DR 325 MG PO (08:24)
[2020-12-27] MEDS: Furosemide 20 MG TABLET 60 MG PO (08:24)
[2020-12-27] MEDS: FLUoxetine HCl 20 MG CAPSULE PO (08:25)
[2020-12-27] MEDS: amLODIPine Besylate 10 MG TABLET PO (08:25)
[2020-12-27] MEDS: Cholecalciferol (Vitamin D3) 25 MCG TABLET PO (08:26)
[2020-12-27] MEDS: Ascorbic Acid 500 MG TABLET PO ×2 (08:26→21:01)
[2020-12-27] MEDS: atenoloL 25 MG TABLET PO (08:26)
[2020-12-27] MEDS: Gabapentin 300 MG CAPSULE PO ×2 (08:26→14:27)
[2020-12-27] MEDS: 0.9 % Sodium Chloride Flush 3 ML SYRINGE IVFLUSH ×3 (08:27→21:02)
[2020-12-27] MEDS: Apixaban 5 MG TABLET PO ×2 (08:41→21:02)
[2020-12-27 09:08] LABS: Hematocrit 27.3 % (42-52); Hemoglobin 7.9 g/dl (14.0-18.0); Mean Corpuscular HGB Conc 28.9 g/dl (31.0-36.0); Mean Corpuscular Hemoglobin 26.4 pg (27.0-33.0); Mean Corpuscular Volume 91.3 fL (80-98); Mean Platelet Volume 10.2 fL (9.4-12.4); Platelet Count 239 X10*3/uL (160-400); Red Blood Count 2.99 X10*6/uL (4.60-5.80); Red Cell Distribution Width 15.8 % (11.0-16.0); White Blood Count 11.3 X10*3/uL (4.8-10.8)
[2020-12-27] MEDS: Ferrous Sulfate 324 MG TABLET.DR PO ×2 (09:22→21:02)
[2020-12-27 09:35] LABS: Anion Gap 18 (12-20); Blood Urea Nitrogen 39 mg/dL (9-16); Calcium 8.8 mg/dL (8.4-10.2); Carbon Dioxide 23 mmol/L (22-29); Chloride 106 mmol/L (96-108); Creatinine Clr Calc Pharmacy 53.4; Estimated Glomerular Filt Rate > 60; Glucose Random 119 mg/dL (60-115); Sodium 143 mmol/L (135-145)
[2020-12-27 10:02] LABS: Erythrocyte Sedimentation Rate 111 MM/HR (0-15)
[2020-12-27 10:26] LABS: Iron 19 mcg/dL (45-160); Percent Iron Saturation 7 % (15-50); Total Iron Binding Capacity 277 mcg/dL (228-428); Unsaturated Iron Binding 258 ug/dL
[2020-12-27 10:46] LABS: Ferritin 49 ng/mL (20-250)
--- NOTE | 2020-12-27 10:57 | HO.PM.IMPN ---
Subjective Subjective Date of Service: 12/27/20 Interval History: seen and examined this morning Complaining of shortness of breath but very vague historian. Constitutional Constitutional: Denies chills and Denies fever(s) Cardiovascular Cardiovascular: Reports dyspnea Respiratory Respiratory: Denies cough and Reports dyspnea Physical Exam Vital Signs: Vital Signs: Last Vital Signs Temp 98.4 F 12/27/20 07:29 Pulse 95 12/27/20 08:26 Resp 16 12/27/20 07:29 BP 110/49 L 12/27/20 08:26 Pulse Ox 95 12/27/20 07:29 Body Mass Index 27.1 Const: General: alert and awake Nutritional Appearance: well nourished HENMT: Head: Yes normocephalic and Yes atraumatic Eyes: Sclerae: sclerae normal Chest: Chest palpation & inspection: normal inspection of the chest Resp: Effort & Inspection: normal respiratory effort and no respiratory distress Cardio: Rate: regular rate Rhythm: regular rhythm GI: Palpation (GI): Soft to palpation and nontender Neuro: Cranial nerves: Yes CN's II-XII intact bilaterally and Yes Bilaterally intact EOM present Objective Data Current Medications Generic Name Dose Route Start Last Admin Trade Name Freq PRN Reason Stop Dose Admin Acetaminophen 650 mg 12/25/20 16:27 12/25/20 17:06 Acetaminophen 325 Mg Tablet PO 650 mg Q6H PRN Administration Pain, Mild (Pain Scale 1-3) Amlodipine Besylate 10 mg 12/26/20 09:00 12/27/20 08:25 Amlodipine Besylate 10 Mg Tablet PO 10 mg DAILY BREE Administration Protocol Apixaban 5 mg 12/25/20 21:00 12/27/20 08:41 Apixaban 5 Mg Tablet PO 5 mg BID BREE Administration Ascorbic Acid 500 mg 12/25/20 21:00 12/27/20 08:26 Ascorbic Acid 500 Mg Tablet PO 500 mg BID BREE Administration Atenolol 25 mg 12/26/20 09:00 12/27/20 08:26 Atenolol 25 Mg Tablet PO 25 mg DAILY BREE Administration Protocol Atorvastatin Calcium 20 mg 12/25/20 21:00 12/26/20 20:16 Atorvastatin Calcium 20 Mg Tablet PO 20 mg BEDTIME BREE Administration Ferrous Sulfate 324 mg 12/27/20 09:00 12/27/20 09:22 Ferrous Sulfate 324 Mg Tablet. PO 324 mg BID BREE Administration Fluoxetine HCl 20 mg 12/26/20 09:00 12/27/20 08:25 Fluoxetine Hcl 20 Mg Capsule PO 20 mg DAILY BREE Administration Furosemide 60 mg 12/26/20 09:00 12/27/20 08:24 Furosemide 20 Mg Tablet PO 60 mg DAILY BREE Administration Protocol Gabapentin 300 mg 12/26/20 08:00 12/27/20 08:26 Gabapentin 300 Mg Capsule PO 300 mg BID@0800,1400 BREE Administration Gabapentin 600 mg 12/25/20 21:00 12/26/20 20:16 Gabapentin 600 Mg Tablet PO 600 mg BEDTIME BREE Administration Hydromorphone HCl 0.5 mg 12/25/20 20:15 12/27/20 03:55 Hydromorphone Hcl 0.5 Mg/0.5 Ml Syringe IVPUSH 0.5 mg Q4H PRN Administration Breakthrough Pain Insulin Human Lispro 0 unit 12/25/20 21:00 12/27/20 08:07 Insulin Lispro 100 Unit/Ml 3 Ml Vial SUBCUT Not Given QIDACHS [facility] Protocol Ondansetron HCl 4 mg 12/25/20 16:27 Ondansetron Hcl 4 Mg/2 Ml Vial IVPUSH Q8H PRN Nausea and Vomiting Oxycodone HCl 5 mg 12/26/20 15:45 12/26/20 17:35 Oxycodone Hcl Immed Release 5 Mg Tablet PO 5 mg Q4H PRN Administration Pain, Mild (Pain Scale 1-3) Pharmacy Consult 1 each 12/25/20 14:58 Consult Rx Perform Med Rec MISCELLANE ONCE PRN Consult order Pharmacy Consult 1 each 12/25/20 15:25 Consult Rx Perform Med Rec MISCELLANE ONCE PRN Consult order Risperidone 0.25 mg 12/25/20 21:00 12/26/20 20:16 Risperidone 0.25 Mg Tablet PO 0.25 mg BEDTIME BREE Administration Sodium Chloride 3 ml 12/26/20 00:00 12/27/20 08:27 0.9 % Sodium Chloride Flush 3 Ml Syringe IVFLUSH 3 ml QSHIFT BREE Administration Tamsulosin HCl 0.4 mg 12/26/20 17:00 12/26/20 17:35 Tamsulosin Hcl 0.4 Mg Capsule PO 0.4 mg DAILY@1700 BREE Administration Vitamin D 25 mcg 12/26/20 09:00 07/22/21 08:26 Cholecalciferol (Vitamin D3) 25 Mcg Tablet PO 25 mcg DAILY BREE Administration Labs CBC & Chem 7: 12/27/20 08:14 12/27/20 08:14 Labs: Laboratory Results - last 24 hr 12/26/20 12/26/20 12/26/20 12:23 16:07 20:26 WBC RBC Hgb Hct MCV MCH MCHC RDW Plt Count MPV Absolute Nucleated RBC Nucleated RBC % (auto) ESR Sodium Potassium Chloride Carbon Dioxide Anion Gap BUN Creatinine Estim Creat Clear Calc Estimated GFR POC Glucose 133 H 124 H 128 H Random Glucose Calcium Iron TIBC % Saturation Unsat Iron Binding Ferritin 12/27/20 12/27/20 12/27/20 07:31 08:14 08:14 WBC 11.3 H RBC 2.99 L Hgb 7.9 L Hct 27.3 L MCV 91.3 MCH 26.4 L MCHC 28.9 L RDW 15.8 Plt Count 239 MPV 10.2 Absolute Nucleated RBC 0.000 Nucleated RBC % (auto) 0.0 ESR Sodium 143 Potassium 4.0 D Chloride 106 Carbon Dioxide 23 Anion Gap 18 BUN 39 H Creatinine 1.13 Estim Creat Clear Calc 53.4 Estimated GFR > 60 POC Glucose 117 H Random Glucose 119 H Calcium 8.8 Iron 19 L TIBC 277 % Saturation 7 L Unsat Iron Binding 258 Ferritin 49 12/27/20 08:14 WBC RBC Hgb Hct MCV MCH MCHC RDW Plt Count MPV Absolute Nucleated RBC Nucleated RBC % (auto) ESR 111 H Sodium Potassium Chloride Carbon Dioxide Anion Gap BUN Creatinine Estim Creat Clear Calc Estimated GFR POC Glucose Random Glucose Calcium Iron TIBC % Saturation Unsat Iron Binding Ferritin Quality Stroke Does the patient have a stroke diagnosis?: No VTE Prior VTE?: No VTE Risk Level:: Medical - moderate - high VTE Device Contraindication: Treatment Not Indicated VTE Drug Contraindication: N/A - Med Ordered Assessment and Plan (1) Anasarca: Status: Acute Assessment and Plan: 85-year-old Croatian-speaking male admitted with left lower extremity edema with history of peripheral arterial disease. Patient reports that this swelling has been ongoing over the last several months but worse over the last several weeks. 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 No signs of bleeding H/H trending down -check iron studies, stool occult -Continue iron supplementation -consider transfusions Dyspnea Discharge in June indicates patient went home on supplemental oxygen -repeat chest x-ray -continue supplemental oxygen as needed Hyperkalemia Hold home potassium Follow BMP Hypertension. Stable blood pressure Continue amlodipine Atrial fibrillation. Continue Eliquis and atenolol Diabetes mellitus. Sliding scale, ADA diet Diabetic neuropathy Continue gabapentin BPH Continue tamsulosin Mood Continue fluoxetine DVT prophylaxis with Sada Attending Dr. Holland Full code
[2020-12-27 11:23] LABS: Glucose, Whole Blood 126 mg/dL (60-115)
--- NOTE | 2020-12-27 11:49 | MHC.CM.PN ---
CM contacted pts HCP/DTR Abena at 11:25am [phone] and she said pt does live alone and has been very adamant about not moving in w/family, he does have a few sons and another dtr Ada [phone] who checks on him the most frequently. At baseline he is able to self transfer to toilet and in and out of bed. He doesn't shower without assistance from home health aid or one of his dtr's being there. Per dtr pt is normally not confused and should be able to answer questions. Hospitalist notified via [facility] w/update.
--- NOTE | 2020-12-27 14:49 | MHC.CM.PN ---
Addendum entered by Anastasia Borges RN 12/27/20 14:55: REFERRAL MADE TO [facility] PER HCP/DTR GERALD'S REQUEST. 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
[2020-12-27 16:19] LABS: Glucose, Whole Blood 162 mg/dL (60-115)
[2020-12-27] MEDS: Tamsulosin HCL 0.4 MG CAPSULE PO (17:46)
[2020-12-27 20:18] LABS: Glucose, Whole Blood 139 mg/dL (60-115)
[2020-12-27] MEDS: risperiDONE 0.25 MG TABLET PO (21:01)
[2020-12-27] MEDS: Atorvastatin Calcium 20 MG TABLET PO (21:01)
[2020-12-27] MEDS: Gabapentin 600 MG TABLET PO (21:02)
[2020-12-28] VITALS (7 sets, daily range): BP systolic 128–186; BP diastolic 62–81; PULSE 71–95; RESP 16–20; TEMP 36–37; O2SAT 92–97
[2020-12-28] MEDS: HYDROmorphone HCl 0.5 MG/0.5 ML SYRINGE IVPUSH ×3 (03:46→21:09)
[2020-12-28 07:23] LABS: Glucose, Whole Blood 122 mg/dL (60-115)
[2020-12-28 07:29] LABS: Hematocrit 29.7 % (42-52); Hemoglobin 8.7 g/dl (14.0-18.0); Mean Corpuscular HGB Conc 29.3 g/dl (31.0-36.0); Mean Corpuscular Hemoglobin 26.7 pg (27.0-33.0); Mean Corpuscular Volume 91.1 fL (80-98); Mean Platelet Volume 9.5 fL (9.4-12.4); Platelet Count 230 X10*3/uL (160-400); Red Blood Count 3.26 X10*6/uL (4.60-5.80); Red Cell Distribution Width 15.8 % (11.0-16.0); White Blood Count 9.1 X10*3/uL (4.8-10.8)
[2020-12-28 07:56] LABS: Anion Gap 14 (12-20); Blood Urea Nitrogen 36 mg/dL (9-16); Calcium 8.6 mg/dL (8.4-10.2); Carbon Dioxide 29 mmol/L (22-29); Chloride 106 mmol/L (96-108); Creatinine Clr Calc Pharmacy 59.7; Estimated Glomerular Filt Rate > 60; Glucose Random 134 mg/dL (60-115); Potassium 3.6 mmol/L (3.3-5.1); Sodium 145 mmol/L (135-145)
[2020-12-28] MEDS: 0.9 % Sodium Chloride Flush 3 ML SYRINGE IVFLUSH ×3 (08:26→20:03)
[2020-12-28] MEDS: Furosemide 20 MG TABLET 60 MG PO (08:26)
[2020-12-28] MEDS: Gabapentin 300 MG CAPSULE PO ×2 (08:26→13:13)
[2020-12-28] MEDS: FLUoxetine HCl 20 MG CAPSULE PO (08:26)
[2020-12-28] MEDS: amLODIPine Besylate 10 MG TABLET PO (08:26)
[2020-12-28] MEDS: oxyCODONE HCl Immed Release 5 MG TABLET PO ×3 (08:26→18:35)
[2020-12-28] MEDS: atenoloL 25 MG TABLET PO (08:26)
[2020-12-28] MEDS: Ferrous Sulfate 324 MG TABLET.DR PO ×2 (08:27→20:03)
[2020-12-28] MEDS: Cholecalciferol (Vitamin D3) 25 MCG TABLET PO (08:27)
[2020-12-28] MEDS: Apixaban 5 MG TABLET PO ×2 (08:27→20:03)
[2020-12-28] MEDS: Ascorbic Acid 500 MG TABLET PO ×2 (08:27→20:03)
--- NOTE | 2020-12-28 11:02 | P.PNVS_ITS ---
Subjective Subjective Date of Service: 12/28/20 Patient reports: no new complaints and feels better Interval history: Patient seen and examined. No significant events over the past day or 2. He appears to be doing significantly better. He is much more responsive. He does respond to questions now. Pain appears to have decreased. And he does say that he does feel a little bit better. Now for follow-up regarding his lower extremity cellulitis. Physical Exam Vital Signs: Vital Signs: Last Vital Signs Temp 96.8 F 12/28/20 10:53 Pulse 71 12/28/20 10:53 Resp 20 12/28/20 10:53 BP 136/62 12/28/20 10:53 Pulse Ox 97 12/28/20 10:53 Body Mass Index 27.1 Const: General: cooperative, healthy appearing and no acute distress Orientation/consciousness: oriented to person, oriented to place and oriented to time HENMT: Head: Yes normal to inspection Neck: Carotids: no bruits Chest: Chest palpation & inspection: normal inspection of the chest Resp: Effort & Inspection: normal respiratory effort and able to speak in complete sentences Auscultation: clear to auscultation bilaterally Cardio: Rate: regular rate Heart sounds: S1 normal heart sound present and S2 normal heart sound present GI: Inspection: Yes normal to inspection Skin: General skin exam: no rashes or lesions noted Wounds: amputation site (Discoloration at flap) and wounds noted (Cellulitis extending up to knee. Ulceration between 2nd and 3rd toe on fariha) Neuro: General: oriented to person, oriented to place, oriented to time and CN's II-XI intact bilaterally Extrem: General: Yes normal to inspection, Yes full ROM and Yes no clubbing, cyanosis or edema Psych: Appearance: grossly normal and well kempt Speech and movement: Normal speech and movement present Affect: normal affect Progress Note: A&P Assessment and plan (1) PAD (peripheral artery disease): Status: Acute Assessment and Plan: Patient appears to be doing somewhat better. Little more responsive today. Would continue medical management. As he improves I am happy to see him as an outpatient. I did review his noninvasive arterial testing and he may require endovascular intervention. From my perspective stable for discharge. See me approximately 2 weeks after discharge. Thank you for allowing us to assist in his care. If there are any questions or concerns please do not hesitate to contact us. Fall Risk Details Current Medications: Current Medications Generic Name Dose Route Start Last Admin Trade Name Andreina PRN Reason Stop Dose Admin Acetaminophen 650 mg 12/25/20 16:27 12/25/20 17:06 Acetaminophen 325 Mg Tablet PO 650 mg Q6H PRN Administration Pain, Mild (Pain Scale 1-3) Amlodipine Besylate 10 mg 12/26/20 09:00 12/28/20 08:26 Amlodipine Besylate 10 Mg Tablet PO 10 mg DAILY BREE Administration Protocol Apixaban 5 mg 12/25/20 21:00 12/28/20 08:27 Apixaban 5 Mg Tablet PO 5 mg BID BREE Administration Ascorbic Acid 500 mg 12/25/20 21:00 12/28/20 08:27 Ascorbic Acid 500 Mg Tablet PO 500 mg BID BREE Administration Atenolol 25 mg 12/26/20 09:00 12/28/20 08:26 Atenolol 25 Mg Tablet PO 25 mg DAILY BREE Administration Protocol Atorvastatin Calcium 20 mg 12/25/20 21:00 12/27/20 21:01 Atorvastatin Calcium 20 Mg Tablet PO 20 mg BEDTIME BREE Administration Ferrous Sulfate 324 mg 12/27/20 09:00 12/28/20 08:27 Ferrous Sulfate 324 Mg Tablet.Dr PO 324 mg BID BREE Administration Fluoxetine HCl 20 mg 12/26/20 09:00 12/28/20 08:26 Fluoxetine Hcl 20 Mg Capsule PO 20 mg DAILY BREE Administration Furosemide 60 mg 12/26/20 09:00 12/28/20 08:26 Furosemide 20 Mg Tablet PO 60 mg DAILY BREE Administration Protocol Gabapentin 300 mg 12/26/20 08:00 12/28/20 08:26 Gabapentin 300 Mg Capsule PO 300 mg BID@0800,1400 BREE Administration Gabapentin 600 mg 12/25/20 21:00 12/27/20 21:02 Gabapentin 600 Mg Tablet PO 600 mg BEDTIME BREE Administration Hydromorphone HCl 0.5 mg 12/25/20 20:15 12/28/20 10:11 Hydromorphone Hcl 0.5 Mg/0.5 Ml Syringe IVPUSH 0.5 mg Q4H PRN Administration Breakthrough Pain Cefazolin Sodium 1 gm/ Sodium 50 mls @ 100 mls/hr 12/28/20 10:00 12/28/20 10:12 Chloride IV 100 mls/hr Q8H BREE Administration Insulin Human Lispro 0 unit 12/25/20 21:00 12/28/20 07:45 Insulin Lispro 100 Unit/Ml 3 Ml Vial SUBCUT Not Given QIDACHS [facility] Protocol Ondansetron HCl 4 mg 12/25/20 16:27 Ondansetron Hcl 4 Mg/2 Ml Vial IVPUSH Q8H PRN Nausea and Vomiting Oxycodone HCl 5 mg 12/26/20 15:45 12/28/20 08:26 Oxycodone Hcl Immed Release 5 Mg Tablet PO 5 mg Q4H PRN Administration Pain, Mild (Pain Scale 1-3) Pharmacy Consult 1 each 12/25/20 14:58 Consult Rx Perform Med Rec MISCELLANE ONCE PRN Consult order Pharmacy Consult 1 each 12/25/20 15:25 Consult Rx Perform Med Rec MISCELLANE ONCE PRN Consult order Risperidone 0.25 mg 12/25/20 21:00 12/27/20 21:01 Risperidone 0.25 Mg Tablet PO 0.25 mg BEDTIME BREE Administration Sodium Chloride 3 ml 12/26/20 00:00 12/28/20 08:26 0.9 % Sodium Chloride Flush 3 Ml Syringe IVFLUSH 3 ml QSHIFT BREE Administration Tamsulosin HCl 0.4 mg 12/26/20 17:00 12/27/20 17:46 Tamsulosin Hcl 0.4 Mg Capsule PO 0.4 mg DAILY@1700 BREE Administration Vitamin D 25 mcg 12/26/20 09:00 12/28/20 08:27 Cholecalciferol (Vitamin D3) 25 Mcg Tablet PO 25 mcg DAILY BREE Administration Time Spent With Patient Time: Total time spent is greater than 50% in coordination of care (as documented) at patient's floor/unit and/or counseling patient: Time with patient: 25 - 35 minutes Procedures Date of Service Date of Service: 12/28/20 Quality Stroke Does the patient have a stroke diagnosis?: No VTE Prior VTE?: No VTE Risk Level:: Medical - moderate - high VTE Device Contraindication: Treatment Not Indicated VTE Drug Contraindication: N/A - Med Ordered
[2020-12-28 11:07] LABS: Glucose, Whole Blood 186 mg/dL (60-115)
[2020-12-28] MEDS: Insulin Lispro 100 UNIT/ML 3 ML VIAL SUBCUT ×2 (11:21→20:56)
--- NOTE | 2020-12-28 12:12 | P.PNIM_ITS ---
Subjective Subjective Date of Service: 12/28/20 Interval History: seen and examined this morning with seismic interpreter feeling better - regular Constitutional Constitutional: Denies chills and Denies fever(s) Cardiovascular Cardiovascular: Reports dyspnea Respiratory Respiratory: Denies cough and Reports dyspnea Physical Exam Vital Signs: Vital Signs: Last Vital Signs Temp 96.8 F 12/28/20 10:53 Pulse 71 12/28/20 10:53 Resp 20 12/28/20 10:53 BP 136/62 12/28/20 10:53 Pulse Ox 97 12/28/20 10:53 Body Mass Index 27.1 Const: General: alert and awake Nutritional Appearance: well nourished HENMT: Head: Yes normocephalic and Yes atraumatic Eyes: Sclerae: sclerae normal Chest: Chest palpation & inspection: normal inspection of the chest Resp: Effort & Inspection: normal respiratory effort and no respiratory distress Cardio: Rate: regular rate Rhythm: regular rhythm GI: Palpation (GI): Soft to palpation and nontender Skin: Other: remains unchanged compared to yesterday Neuro: Cranial nerves: Yes CN's II-XII intact bilaterally and Yes Bilaterally intact EOM present Objective Data Current Medications Generic Name Dose Route Start Last Admin Trade Name Freq PRN Reason Stop Dose Admin Acetaminophen 650 mg 12/25/20 16:27 12/25/20 17:06 Acetaminophen 325 Mg Tablet PO 650 mg Q6H PRN Administration Pain, Mild (Pain Scale 1-3) Amlodipine Besylate 10 mg 12/26/20 09:00 12/28/20 08:26 Amlodipine Besylate 10 Mg Tablet PO 10 mg DAILY BREE Administration Protocol Apixaban 5 mg 12/25/20 21:00 12/28/20 08:27 Apixaban 5 Mg Tablet PO 5 mg BID BREE Administration Ascorbic Acid 500 mg 12/25/20 21:00 12/28/20 08:27 Ascorbic Acid 500 Mg Tablet PO 500 mg BID BREE Administration Atenolol 25 mg 12/26/20 09:00 12/28/20 08:26 Atenolol 25 Mg Tablet PO 25 mg DAILY BREE Administration Protocol Atorvastatin Calcium 20 mg 12/25/20 21:00 12/27/20 21:01 Atorvastatin Calcium 20 Mg Tablet PO 20 mg BEDTIME BREE Administration Ferrous Sulfate 324 mg 12/27/20 09:00 12/28/20 08:27 Ferrous Sulfate 324 Mg Tablet.Dr PO 324 mg BID BREE Administration Fluoxetine HCl 20 mg 12/26/20 09:00 12/28/20 08:26 Fluoxetine Hcl 20 Mg Capsule PO 20 mg DAILY BREE Administration Furosemide 60 mg 12/26/20 09:00 12/28/20 08:26 Furosemide 20 Mg Tablet PO 60 mg DAILY BREE Administration Protocol Gabapentin 300 mg 12/26/20 08:00 12/28/20 08:26 Gabapentin 300 Mg Capsule PO 300 mg BID@0800,1400 BREE Administration Gabapentin 600 mg 12/25/20 21:00 12/27/20 21:02 Gabapentin 600 Mg Tablet PO 600 mg BEDTIME BREE Administration Hydromorphone HCl 0.5 mg 12/25/20 20:15 12/28/20 10:11 Hydromorphone Hcl 0.5 Mg/0.5 Ml Syringe IVPUSH 0.5 mg Q4H PRN Administration Breakthrough Pain Cefazolin Sodium 1 gm/ Sodium 50 mls @ 100 mls/hr 12/28/20 10:00 12/28/20 10:42 Chloride IV Infused Q8H BREE Infusion Insulin Human Lispro 0 unit 12/25/20 21:00 12/28/20 11:21 Insulin Lispro 100 Unit/Ml 3 Ml Vial SUBCUT 2 unit QIDACHS BREE Administration Protocol Ondansetron HCl 4 mg 12/25/20 16:27 Ondansetron Hcl 4 Mg/2 Ml Vial IVPUSH Q8H PRN Nausea and Vomiting Oxycodone HCl 5 mg 12/26/20 15:45 12/28/20 08:26 Oxycodone Hcl Immed Release 5 Mg Tablet PO 5 mg Q4H PRN Administration Pain, Mild (Pain Scale 1-3) Pharmacy Consult 1 each 12/25/20 14:58 Consult Rx Perform Med Rec MISCELLANE ONCE PRN Consult order Pharmacy Consult 1 each 12/25/20 15:25 Consult Rx Perform Med Rec MISCELLANE ONCE PRN Consult order Risperidone 0.25 mg 12/25/20 21:00 12/27/20 21:01 Risperidone 0.25 Mg Tablet PO 0.25 mg BEDTIME BREE Administration Sodium Chloride 3 ml 12/26/20 00:00 12/28/20 08:26 0.9 % Sodium Chloride Flush 3 Ml Syringe IVFLUSH 3 ml QSHIFT BREE Administration Tamsulosin HCl 0.4 mg 12/26/20 17:00 12/27/20 17:46 Tamsulosin Hcl 0.4 Mg Capsule PO 0.4 mg DAILY@1700 BREE Administration Vitamin D 25 mcg 12/26/20 09:00 12/28/20 08:27 Cholecalciferol (Vitamin D3) 25 Mcg Tablet PO 25 mcg DAILY BREE Administration Labs CBC & Chem 7: 12/28/20 07:07 12/28/20 07:07 Labs: Laboratory Results - last 24 hr 12/27/20 12/27/20 12/27/20 11:56 16:15 20:11 WBC RBC Hgb Hct MCV MCH MCHC RDW Plt Count MPV Absolute Nucleated RBC Nucleated RBC % (auto) Sodium Potassium Chloride Carbon Dioxide Anion Gap BUN Creatinine Estim Creat Clear Calc Estimated GFR POC Glucose 162 H 139 H Random Glucose Calcium Blood Type O Positive Antibody Screen NEGATIVE Crossmatch See Detail 12/28/20 12/28/20 12/28/20 07:07 07:07 07:10 WBC 9.1 RBC 3.26 L Hgb 8.7 L Hct 29.7 L MCV 91.1 MCH 26.7 L MCHC 29.3 L RDW 15.8 Plt Count 230 MPV 9.5 Absolute Nucleated RBC 0.000 Nucleated RBC % (auto) 0.0 Sodium 145 Potassium 3.6 Chloride 106 Carbon Dioxide 29 Anion Gap 14 BUN 36 H Creatinine 1.01 Estim Creat Clear Calc 59.7 Estimated GFR > 60 POC Glucose 122 H Random Glucose 134 H Calcium 8.6 Blood Type Antibody Screen Crossmatch 12/28/20 10:52 WBC RBC Hgb Hct MCV MCH MCHC RDW Plt Count MPV Absolute Nucleated RBC Nucleated RBC % (auto) Sodium Potassium Chloride Carbon Dioxide Anion Gap BUN Creatinine Estim Creat Clear Calc Estimated GFR POC Glucose 186 H Random Glucose Calcium Blood Type Antibody Screen Crossmatch Quality Stroke Does the patient have a stroke diagnosis?: No VTE Prior VTE?: No VTE Risk Level:: Medical - moderate - high VTE Device Contraindication: Treatment Not Indicated VTE Drug Contraindication: N/A - Med Ordered Assessment and Plan (1) Anasarca: Status: Acute Assessment and Plan: 85-year-old Macanese-speaking male admitted with left lower extremity edema with history of peripheral arterial disease. Patient reports that this swelling has been ongoing over the last several months but worse over the last several weeks. 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 No signs of bleeding s/p 1 unit prbc with improvement in his h/h Dyspnea improved with transfusion of 1 unit prbc Hyperkalemia resolved Hypertension. Stable blood pressure Continue amlodipine Atrial fibrillation. Continue Eliquis and atenolol Diabetes mellitus. Sliding scale, ADA diet Diabetic neuropathy Continue gabapentin BPH Continue tamsulosin Mood Continue fluoxetine Full Code DVT pptx, Eliquis Dispo: likely will need STR (pt eval ordered)
--- NOTE | 2020-12-28 13:21 | MHC.CM.PN ---
spoke with pts hcp doug updated re bed search imm updated as well
--- NOTE | 2020-12-28 14:20 | W.PM.IDCN ---
History of Present Illness Data of Consult Service Date: 12/28/20 Requesting physician: Osvaldo Holland Primary Care Provider: Mahsa Cr MD HPI Reason for consult: left leg wound He presents with left leg wounds and swelling,worse after last week he had been on airplane He has no fever or chills Review of Systems Review of Systems: Yes all other systems are reviewed and are negative [facility] Past Medical History Medical History (Updated 12/28/20 @ 14:23 by Myrna Casper MD) Afib Alcoholic cardiomyopathy BPH (benign prostatic hyperplasia) COPD (chronic obstructive pulmonary disease) Diabetes Foot ulcer Hyperlipidemia PAD (peripheral artery disease) Prostate cancer Family History Family History Mother No problems noted. Father No problems noted. Son No problems noted. Son No problems noted. Son No problems noted. Son No problems noted. Daughter No problems noted. Daughter No problems noted. Daughter No problems noted. Family history: reviewed and not pertinent Surgical History Surgical History H/O abdominal surgery H/O angioplasty H/O cataract extraction Hx of BKA Social History Social History Household Members: None Housing: Apartment Do you presently have visiting nurse or other home services: Yes Alcohol intake: never Patient Tobacco Use Status: Never used Tobacco Use of substances other than those prescribed or required for medical reasons: No Currently Displaying Signs/Symptoms of Drug Intoxication Withdrawal: No Have you been hit, kicked, punched, or otherwise hurt by someone within the past year? If so, by whom?: No Do you feel safe in your current relationship?: No Current Relationship Is there a partner from a previous relationship who is making you feel unsafe now?: No Are you made to feel afraid or neglected: No Advance Directives: Yes Advance Directives on File: Yes Advance Directives Date on File: 03/28/20 Do you have thoughts of harming others: None Do you have a plan to hurt others: No Plan Recently lost weight without trying: No How much weight loss: Not applicable Eating poorly because of decreased appetite: No Nutrition screen score: 0 Nutrition Risks: No Nutritional Risk Poor oral hygiene: No service: No Current occupational status: retired Meds Allergies Allergy/AdvReac Type Severity Reaction Status Date / Time bee pollen [BEE STINGS] Allergy Severe ANAPHYLAXIS Verified 07/04/20 13:06 doxycycline [DOXYCYCLINE] Allergy Unknown ? ALLERGY Verified 07/04/20 13:06 PER [employer] [place]ARD[place]ES Allergy Mild ITCHING Uncoded 03/28/20 19:48 bee venom Allergy Unknown unspecified Uncoded 03/28/20 19:48 sardines Allergy Unknown itching Uncoded 03/28/20 19:48 Active Medications: Current Medications Generic Name Dose Route Start Last Admin Trade Name Freq PRN Reason Stop Dose Admin Acetaminophen 650 mg 12/25/20 16:27 12/25/20 17:06 Acetaminophen 325 Mg Tablet PO 650 mg Q6H PRN Administration Pain, Mild (Pain Scale 1-3) Amlodipine Besylate 10 mg 12/26/20 09:00 12/28/20 08:26 Amlodipine Besylate 10 Mg Tablet PO 10 mg DAILY BREE Administration Protocol Apixaban 5 mg 12/25/20 21:00 12/28/20 08:27 Apixaban 5 Mg Tablet PO 5 mg BID BREE Administration Ascorbic Acid 500 mg 12/25/20 21:00 12/28/20 08:27 Ascorbic Acid 500 Mg Tablet PO 500 mg BID BREE Administration Atenolol 25 mg 12/26/20 09:00 12/28/20 08:26 Atenolol 25 Mg Tablet PO 25 mg DAILY BREE Administration Protocol Atorvastatin Calcium 20 mg 12/25/20 21:00 12/27/20 21:01 Atorvastatin Calcium 20 Mg Tablet PO 20 mg BEDTIME BREE Administration Ferrous Sulfate 324 mg 12/27/20 09:00 12/28/20 08:27 Ferrous Sulfate 324 Mg Tablet.Dr PO 324 mg BID BREE Administration Fluoxetine HCl 20 mg 12/26/20 09:00 12/28/20 08:26 Fluoxetine Hcl 20 Mg Capsule PO 20 mg DAILY BREE Administration Furosemide 60 mg 12/26/20 09:00 12/28/20 08:26 Furosemide 20 Mg Tablet PO 60 mg DAILY BREE Administration Protocol Gabapentin 300 mg 12/26/20 08:00 12/28/20 13:13 Gabapentin 300 Mg Capsule PO 300 mg BID@0800,1400 BREE Administration Gabapentin 600 mg 12/25/20 21:00 12/27/20 21:02 Gabapentin 600 Mg Tablet PO 600 mg BEDTIME BREE Administration Hydromorphone HCl 0.5 mg 12/25/20 20:15 12/28/20 10:11 Hydromorphone Hcl 0.5 Mg/0.5 Ml Syringe IVPUSH 0.5 mg Q4H PRN Administration Breakthrough Pain Cefazolin Sodium 1 gm/ Sodium 50 mls @ 100 mls/hr 12/28/20 10:00 12/28/20 10:42 Chloride IV Infused Q8H BREE Infusion Insulin Human Lispro 0 unit 12/25/20 21:00 12/28/20 11:21 Insulin Lispro 100 Unit/Ml 3 Ml Vial SUBCUT 2 unit QIDACHS [facility] Administration Protocol Lactic Acid 1 appl 12/28/20 21:00 Ammonium Lactate 12 % Cream 140 Gm Tube TOPICAL BID [facility] Protocol Ondansetron HCl 4 mg 12/25/20 16:27 Ondansetron Hcl 4 Mg/2 Ml Vial IVPUSH Q8H PRN Nausea and Vomiting Oxycodone HCl 5 mg 12/26/20 15:45 12/28/20 13:13 Oxycodone Hcl Immed Release 5 Mg Tablet PO 5 mg Q4H PRN Administration Pain, Mild (Pain Scale 1-3) Pharmacy Consult 1 each 12/25/20 14:58 Consult Rx Perform Med Rec MISCELLANE ONCE PRN Consult order Pharmacy Consult 1 each 12/25/20 15:25 Consult Rx Perform Med Rec MISCELLANE ONCE PRN Consult order Risperidone 0.25 mg 12/25/20 21:00 12/27/20 21:01 Risperidone 0.25 Mg Tablet PO 0.25 mg BEDTIME BREE Administration Sodium Chloride 3 ml 12/26/20 00:00 12/28/20 08:26 0.9 % Sodium Chloride Flush 3 Ml Syringe IVFLUSH 3 ml QSHIFT [facility] Administration Tamsulosin HCl 0.4 mg 12/26/20 17:00 12/27/20 17:46 Tamsulosin Hcl 0.4 Mg Capsule PO 0.4 mg DAILY@1700 [facility] Administration Vitamin D 25 mcg 12/26/20 09:00 12/28/20 08:27 Cholecalciferol (Vitamin D3) 25 Mcg Tablet PO 25 mcg DAILY BREE Administration Home Medications Medication Instructions Recorded Confirmed Last Taken Type albuterol sulfate 2 puff PO Q4-6H PRN 03/28/20 12/25/20 Unknown History ascorbic acid (vitamin C) [Vitamin 500 mg PO BID 03/28/20 12/25/20 Unknown History C] atenolol 25 mg PO DAILY 03/28/20 12/25/20 Unknown History cholecalciferol (vitamin D3) 25 mcg PO DAILY 03/28/20 12/25/20 Unknown History ferrous sulfate 325 mg PO BID 03/28/20 12/25/20 Unknown History fluoxetine 20 mg PO DAILY 03/28/20 12/25/20 Unknown History gabapentin 300 mg PO BID@0800,1400 03/28/20 12/25/20 Unknown History gabapentin 600 mg PO BEDTIME 03/28/20 12/25/20 Unknown History melatonin 5 mg PO BEDTIME 03/28/20 12/25/20 Unknown History metformin 500 mg PO DAILY@1700 03/28/20 12/25/20 Unknown History potassium chloride 20 meq PO BEDTIME 03/28/20 12/25/20 Unknown History risperidone 0.25 mg PO BEDTIME 03/28/20 12/25/20 Unknown History tamsulosin 0.4 mg PO DAILY@1700 03/28/20 12/25/20 Unknown History furosemide 60 mg PO QAM 07/04/20 12/25/20 Unknown History amlodipine 1 tab PO DAILY 12/25/20 12/25/20 Unknown History chlorhexidine gluconate [Hibiclens] 1 appl TOPICAL DAILY 12/25/20 12/25/20 Unknown History tramadol 1 tab PO TID PRN 12/25/20 12/25/20 Unknown History Physical Exam Vital Signs: Vital Signs: Last Vital Signs Temp 96.8 F 12/28/20 10:53 Pulse 71 12/28/20 12:52 Resp 12/28/20 10:53 BP 136/62 12/28/20 12:52 Pulse Ox 97 12/28/20 12:52 Body Mass Index 27.1 Const: General: cooperative HENMT: Head: Yes normal to inspection Mouth: Normal oral and palatal mucosa present Resp: Effort & Inspection: normal respiratory effort Cardio: Rate: regular rate Rhythm: regular rhythm GI: Palpation (GI): Soft to palpation and nontender Skin: General skin exam: no rashes or lesions noted Extrem: Other: right AKA, left lateral wound to great toe neuropathy neuropathic ulcers up leg Results Labs CBC & Chem 7: 12/28/20 07:07 12/28/20 07:07 Labs: Short CBC 12/28/20 Range/Units 07:07 WBC 9.1 (4.8-10.8) X10*3/uL Hgb 8.7 L (14.0-18.0) g/dl Hct 29.7 L (42-52) % Plt Count 230 (160-400) X10*3/uL BMP 12/28/20 07:07 Sodium 145 Potassium 3.6 Chloride 106 Carbon Dioxide 29 BUN 36 H Creatinine 1.01 Calcium 8.6 Assessment and Plan (1) Stasis dermatitis: Status: Acute (2) Right leg swelling: Status: Acute (3) Foot ulcer: Status: Acute There is ulcer left foot neuropathic There is likely just some cellulitis and no deep infection but would evaluate ulcer foot Suggest Would check CT or MRI evaluate deep ulcer If no osteomyelitis and continues to improve po Keflex for a week on discharge
--- NOTE | 2020-12-28 14:33 | MHC.CM.PN ---
PT ACCEPTED AT [facility] PENDING AUTH NEED A NEW COVID
--- NOTE | 2020-12-28 14:51 | MHC.CLN ---
NUTRITION REVIEW OF PO INTAKE SHOWS LIMITED INTAKE WITH 100% X 1 MEAL AND 25% X 1 MEAL. DIABETIC DIET [address] WITH GLUCERNA SUPPLEMENT 240 CC THREE TIMES DAILY. CONTINUE TO FOLLOW FOR NUTRITION/INTAKE.
[2020-12-28 16:15] LABS: Glucose, Whole Blood 113 mg/dL (60-115)
[2020-12-28] MEDS: Tamsulosin HCL 0.4 MG CAPSULE PO (16:21)
[2020-12-28] MEDS: Gabapentin 600 MG TABLET PO (20:03)
[2020-12-28] MEDS: Atorvastatin Calcium 20 MG TABLET PO (20:03)
[2020-12-28] MEDS: risperiDONE 0.25 MG TABLET PO (20:03)
[2020-12-28 20:36] LABS: Glucose, Whole Blood 162 mg/dL (60-115)
[2020-12-28] MEDS: Ammonium Lactate 12 % Cream 140 GM TUBE 1 APPL TOPICAL ×2 (20:57→21:10)
[2020-12-29 03:53] VITALS: BP 144/69; PULSE 78; RESP 18; TEMP 36.3; O2SAT 94
[2020-12-29 07:23] VITALS: BP 174/77; PULSE 86; RESP 18; TEMP 36.4; O2SAT 95
[2020-12-29 07:39] LABS: Glucose, Whole Blood 134 mg/dL (60-115)
[2020-12-29] MEDS: atenoloL 25 MG TABLET PO (09:01)
[2020-12-29] MEDS: Cholecalciferol (Vitamin D3) 25 MCG TABLET PO (09:01)
[2020-12-29] MEDS: FLUoxetine HCl 20 MG CAPSULE PO (09:01)
[2020-12-29] MEDS: amLODIPine Besylate 10 MG TABLET PO (09:01)
[2020-12-29] MEDS: Apixaban 5 MG TABLET PO ×2 (09:01→20:34)
[2020-12-29] MEDS: Gabapentin 300 MG CAPSULE PO ×2 (09:01→14:45)
[2020-12-29] MEDS: Ascorbic Acid 500 MG TABLET PO ×2 (09:01→20:34)
[2020-12-29] MEDS: 0.9 % Sodium Chloride Flush 3 ML SYRINGE IVFLUSH ×2 (09:02→20:34)
[2020-12-29] MEDS: Furosemide 20 MG TABLET 60 MG PO (09:02)
[2020-12-29] MEDS: Ferrous Sulfate 324 MG TABLET.DR PO ×2 (09:02→20:34)
[2020-12-29] MEDS: Ammonium Lactate 12 % Cream 140 GM TUBE 1 APPL TOPICAL ×3 (09:14→20:35)
[2020-12-29] MEDS: HYDROmorphone HCl 0.5 MG/0.5 ML SYRINGE IVPUSH ×2 (10:31→16:24)
--- NOTE | 2020-12-29 11:06 | P.DS_ITS ---
DS: Providers Provider Date of Service: 12/29/20 <Gracia Camacho NP - Last Filed: 01/14/21 17:56> Date of admission: 12/25/20 16:28 <Gracia Camacho NP - Last Filed: 01/14/21 17:56> Date of discharge: 12/29/20 <Gracia Camacho NP - Last Filed: 01/14/21 17:56> Primary care physician: Mahsa Cr MD <Gracia Camacho NP - Last Filed: 01/14/21 17:56> Admitting clinician: Gracia Camacho <Gracia Camacho NP - Last Filed: 01/14/21 17:56> Attending physician on admission: Rosalia Roberson <Gracia Camacho NP - Last Filed: 01/14/21 17:56> Consults: 12/25/20 16:27 Consult to Vascular Surgery Routine Consulting Provider: Siva Kirkpatrick Reason for consultation: hx pad, erythema, edema Has provider been notified: No 12/25/20 17:58 Consult to Wound Care Routine Consulting Provider: Esthela Sahu Reason for consultation: leg wound 12/27/20 08:07 Consult to Infectious Diseases Routine Consulting Provider: Myrna Casper Reason for consultation: nonhealing foot ulcer Has provider been notified: No <Gracia Camacho NP - Last Filed: 01/14/21 17:56> Attending physician on discharge: Osvaldo Holland <Gracia Camacho NP - Last Filed: 01/14/21 17:56> Discharging clinician: Gracia Camacoh <Gracia Camacho NP - Last Filed: 01/14/21 17:56> DS: Diagnosis Discharge Diagnosis (1) Anasarca: Status: Resolved <Gracia Camacho NP - Last Filed: 01/14/21 17:56> DS: Medications Discharge Medications Home Medications: Home Medications Medication Instructions Recorded Confirmed albuterol sulfate 2 puff PO Q4-6H PRN 03/28/20 12/25/20 ascorbic acid (vitamin C) [Vitamin 500 mg PO BID 03/28/20 12/25/20 C] atenolol 25 mg PO DAILY 03/28/20 12/25/20 cholecalciferol (vitamin D3) 25 mcg PO DAILY 03/28/20 12/25/20 ferrous sulfate 325 mg PO BID 03/28/20 12/25/20 fluoxetine 20 mg PO DAILY 03/28/20 12/25/20 gabapentin 300 mg PO BID@0800,1400 03/28/20 12/25/20 gabapentin 600 mg PO BEDTIME 03/28/20 12/25/20 melatonin 5 mg PO BEDTIME 03/28/20 12/25/20 metformin 500 mg PO DAILY@1700 03/28/20 12/25/20 potassium chloride 20 meq PO BEDTIME 03/28/20 12/25/20 risperidone 0.25 mg PO BEDTIME 03/28/20 12/25/20 tamsulosin 0.4 mg PO DAILY@1700 03/28/20 12/25/20 furosemide 60 mg PO QAM 07/04/20 12/25/20 amlodipine 1 tab PO DAILY 12/25/20 12/25/20 chlorhexidine gluconate [Hibiclens] 1 appl TOPICAL DAILY 12/25/20 12/25/20 tramadol 1 tab PO TID PRN 12/25/20 12/25/20 Previous Rx's Medication Instructions Recorded apixaban 5 mg tablet 5 mg PO BID #180 tab 09/21/20 atorvastatin 20 mg tablet 20 mg PO QAM #90 tab 09/21/20 ammonium lactate 1 appl TOPICAL BID 30 Days #140 g 12/29/20 cephalexin 500 mg PO QID 7 Days #28 cap 12/29/20 oxycodone 5 mg PO Q4H PRN 3 Days #18 tab 12/29/20 <Gracia Camacho NP - Last Filed: 01/14/21 17:56> DS: Summary Hospital Course Hospital Course: from the admission H+P by hospitalist Gracia Camacho NP, 12/25/20: 85-year-old Singaporean-speaking male presented to the ER with worsening swelling to his left lower extremity with some drainage to left foot wounds. 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 He has a visiting nurse and apparently they had wanted him to come to be evaluated in the hospital however he has refused. Patient reports a history of alcohol but is very vague of how much and when was last time he drank. he denies chest pain, shortness of breath nausea vomiting, diarrhea, fever, chills. He reports that over the last few months he has been to go to [place] and [place]. Potassium noted to be elevated at 5.4, creat 1.37, hemoglobin 8.6, hematocrit 29.1, no transaminitis noted. His blood pressure was noted to be elevated with highest reading of 160/100. he received IV Lasix, morphine while in the ER. Admitted for further management and treatment of left lower extremity edema with vascular wounds. Diabetic foot wounds/Vascular wounds/leg edema. No fluid overload noted. Multiple areas of wounds to his left foot. Hx of PAD and BKA to right leg. Chronic dermatitis to right stump and left lower extremity. Arterial ultrasound of left lower extremity PVD with decreased flow present in SFA. seen evaluated by vascular surgery with no recommendation for surgery will be managed conservatively and follow up with Dr. Kirkpatrick as an outpatient. Venous and arterial US neg for DVT. Also seen and evaluated by ID with rec to continue keflex for 7 days. He was also noted to have normocytic anemia. No signs of bleeding, he was transfused 1 unit prbc. After the transfusion his dyspnea also improved. 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 MRI showed osteomyelitis involving the medial aspect of the 1st metatarsal head. He was started on IV vancomycin and piperacillin/tazobactam and a PICC line was placed. Blood cultures were negative. He was discharged to a SNF on IV vancomycin 750 mg daily and IV ertapenem 1 g daily. Vancomycin trough was 21.4 on the day of discharge and vancomycin dose was decreased from 1000 mg to 750 mg daily. A vancomycin trough should be repeated prior to the dose on 01/05/21 and the dose should be adjusted to achieve a trough of 15-20. He will need 37 more days of IV therapy with both antibiotics with end date of 02/09/21. While on these antibiotics, he should have weekly vancomycin trough, BMP, CBCd, CRP, and ESR monitored and should see the Infectious Disease specialist, Dr Casper, in 2 weeks. Per the oracle ebs consultant, no vascular intervention was indicated. Hemoglobin improved after 1 unit of pRBCs and anemia was attributed to chronic disease. Otherwise, he was continued on his home medications for hypertension, AF, dyslipidemia, neuropathy, mood disorder, and BPH; diabetes was managed with correction-dose lispro. <Gracia Camacho NP - Last Filed: 01/14/21 17:56> Time Spent with Patient Time attestation: Total time spent providing and/or coordinating discharge services: <Gracia Camacho NP - Last Filed: 01/14/21 17:56> Discharge coordination time: Greater than 30 minutes <Gracia Camacho NP - Last Filed: 01/14/21 17:56> Quality: Stroke Does the patient have a stroke diagnosis?: No <Gracia Camacho NP - Last Filed: 01/14/21 17:56> Physical Exam Vital Signs: Vital Signs: Last Vital Signs Temp 97.6 F 12/29/20 07:23 Pulse 86 12/29/20 07:23 Resp 18 12/29/20 07:23 BP 174/77 H 12/29/20 07:23 Pulse Ox 95 12/29/20 07:23 Body Mass Index 27.1 <ANNA Mireles Last Filed: 01/14/21 17:56> Appearing in no acute distress head is normocephalic atraumatic eyes pupils are PERRLA sclera is anicteric mouth throat mucous membranes are intact and moist neck is supple no lymphadenopathy, no JVD noted lung sounds are clear to auscultation heart regular rate rhythm, clear S1, S2 positive bowel sounds, abdomen is soft, nontender neuro patient is alert x3, no focal deficits Initial images improvement seen during hospitalization with keflex <Gracia Camacho NP - Last Filed: 01/14/21 17:56> DS: Data Data Completed and Pending Labs on day of discharge: Laboratory Results - last 24 hr 12/28/20 12/28/20 12/28/20 10:52 16:08 20:31 POC Glucose 186 H 113 162 H 12/29/20 07:22 POC Glucose 134 H <ANNA Mireles Last Filed: 01/14/21 17:56> Discharge Plan Discharge Anticipated Discharge Date/Time: 12/29/20 10:24 <Gracia Camacho NP - Last Filed: 01/14/21 17:56> Patient Disposition: Xfer Inpatient Rehab Fac <ANNA Mireles Last Filed: 01/14/21 17:56> 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 <Gracia Camacho NP - Last Filed: 01/14/21 17:56> 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 <Tricia Parsons MD - Last Filed: 01/29/21 14:47> Referrals: [facility] [Outside] - 1 Day (STR and IV abx ) Myrna Casper MD [Physician] - 2 Weeks Mahsa Cr MD [Primary Care Provider] - 1 Week <Gracia Camacho NP - Last Filed: 01/14/21 17:56> Discharge Medications: New sodium chloride 0.9 % (flush) [Normal Saline Flush] Syringe 5 ml IVFLUSH TID Qty: 500 RF: 0 ertapenem 1 gram recon soln 1 g IV DAILY 37 Days Qty: 37 RF: 0 Continued apixaban [Eliquis] 5 mg tablet 5 mg PO BID Qty: 180 RF: 3 atorvastatin 20 mg tablet 20 mg PO QAM Qty: 90 RF: 3 metformin 500 mg tablet 500 mg PO DAILY@1700 RF: 0 risperidone 0.25 mg tablet 0.25 mg PO BEDTIME RF: 0 potassium chloride 20 mEq tablet,ER particles/crystals 20 meq PO BEDTIME RF: 0 ascorbic acid (vitamin C) [Vitamin C] 500 mg tablet 500 mg PO BID RF: 0 tamsulosin 0.4 mg capsule 0.4 mg PO DAILY@1700 RF: 0 ferrous sulfate 325 mg (65 mg iron) tablet 325 mg PO BID RF: 0 albuterol sulfate 90 mcg/actuation HFA aerosol inhaler 2 puff PO Q4H PRN (Reason: Shortness Of Breath) RF: 0 cholecalciferol (vitamin D3) 25 mcg (1,000 unit) tablet 25 mcg PO DAILY RF: 0 melatonin 5 mg tablet 5 mg PO BEDTIME RF: 0 amlodipine 10 mg tablet 1 tab PO DAILY RF: 0 chlorhexidine gluconate [Hibiclens] 4 % liquid 1 appl topical DAILY RF: 0 Discontinued tramadol 50 mg tablet 1 tab PO TID PRN (Reason: Pain (Scale Score 4-6)) RF: 0 No Action vancomycin 500 mg Recon Soln 500 mg IV DAILY RF: 0 fluoxetine 10 mg Capsule 10 mg PO DAILY Qty: 30 RF: 0 furosemide 40 mg Tablet 40 mg PO BID@0900,1800 Qty: 60 RF: 0 acetaminophen [Mapap (acetaminophen)] 325 mg Tablet 650 mg PO Q6H PRN (Reason: MILD PAIN OR TEMP) RF: 0 gabapentin 600 mg tablet 1 tab PO BEDTIME RF: 0 ammonium lactate 12 % Lotion 1 appl TOPICAL BID RF: 0 atenolol 25 mg tablet 1 tab PO DAILY RF: 0 gabapentin 300 mg capsule 300 mg PO BID RF: 0 furosemide 20 mg tablet 1 tab PO DAILY RF: 0 fluoxetine 20 mg capsule 1 cap PO DAILY RF: 0 oxycodone 5 mg Tablet 5 mg PO Q4H PRN (Reason: Pain (Scale Score 4-6)) RF: 0 <Gracia Camacho NP - Last Filed: 01/14/21 17:56> Discharge Orders: Discharge Order (Routine); Ordered 01/02/21 Ordered By: Tricia Parsons <Gracia Camacho NP - Last Filed: 01/14/21 17:56> Diet: advance to usual diet and diabetic diet <Gracia Camacho NP - Last Filed: 01/14/21 17:56> advance to usual diet and diabetic diet <Tricia Parsons MD - Last Filed: 01/29/21 14:47> Activity on Discharge: As tolerated <Gracia Camacho NP - Last Filed: 01/14/21 17:56> As tolerated <Tricia Parsons MD - Last Filed: 01/29/21 14:47> Stand Alone Forms: Patient Portal Discharge page <Gracia Camacho NP - Last Filed: 01/14/21 17:56> Other Ambulatory Orders: Basic Metabolic Panel (Routine) Timeframe: 20210105 Facility: [facility] - Location: Laboratory Ordered By: Tricia Parsons Complete Blood Count Auto Diff (Routine) Timeframe: 20210105 Facility: [facility] - Location: Laboratory Ordered By: Tricia Parsons C Reactive Protein (Routine) Timeframe: 20210105 Facility: [facility] - Location: Laboratory Ordered By: Tricia Parsons Erythrocyte Sedimentation Rate (Routine) Timeframe: 20210105 Facility: [facility] - Location: Laboratory Ordered By: Tricia Parsons Vancomycin Trough (Routine) Timeframe: 20210105 Facility: [facility] - Location: Laboratory Ordered By: Tricia Parsons <Gracia Camacho NP - Last Filed: 01/14/21 17:56> Care Plan Goals: Resolution of osteomyelitis <Gracia Camacho NP - Last Filed: 01/14/21 17:56> Health Concerns: Diabetic osteomyelitis <Gracia Camacho NP - Last Filed: 01/14/21 17:56> Plan of Treatment: IV antibiotics via PICC line for 37 more days (end date 02/09/21) - vancomycin 750 mg daily - ertapenem 1 gram daily weekly labs beginning on 01/05/21 and ending on 02/09/21: - vancomycin trough (goal trough is 15-20) - CBC with differential - basic metabolic panel - ESR - C-reactive protein follow up with Dr Shara Casper, Infectious Disease, 2 weeks WOUND CARE INSTRUCTIONS (daily): Apply silver alginate to posterior left leg and to base of left dodrsal great toe. Apply betadine to ulcer on medial left foot. Cover all with gauze then roll gauze. Protector boot to left foot. Apply Triad to stage 2 areas on buttocks and maintain on air loss bed. <Gracia Camacho NP - Last Filed: 01/14/21 17:56> Assessment: See discharge summary <Gracia Camacho NP - Last Filed: 01/14/21 17:56> Patient Instructions: PICC (Peripherally Inserted Central Catheter) (DC) <Gracia Camacho NP - Last Filed: 01/14/21 17:56> Discharge Date/Time: 01/02/21 21:03 <Gracia Camacho NP - Last Filed: 01/14/21 17:56>
[2020-12-29 11:15] LABS: COVID-19 Test Negative (Negative)
[2020-12-29 11:24] VITALS: BP 164/84; PULSE 76; RESP 18; TEMP 36.1; O2SAT 94
[2020-12-29 11:46] LABS: Glucose, Whole Blood 136 mg/dL (60-115)
--- NOTE | 2020-12-29 11:47 | MHC.CM.PN ---
WITH ASSIST OF INTELLIGENCE APPLICATIONS, CASE MANAGEMENT SPOKE WITH PATIENT. PATIENT IS AWARE OF DC TODAY (APPROX 1500) AND TO [facility] PATIENT AGREES AND STATES THAT HE WANTS OT STAY IN [place]. HE WAS ABLE TO TELL THIS MAGNET VALVE ASSEMBLER HIS NAME, DATE OF , AND ADDRESS. HE IS ALSO AWARE THAT HE IS AT [facility]. THIS MAGNET VALVE ASSEMBLER EXPLAINED TO HCP, GERALD ([phone]) THE DC PLAN. GERALD TOLD THIS MAGNET VALVE ASSEMBLER THAT SHE WANTED [facility]. THIS MAGNET VALVE ASSEMBLER CHECKED REFERRAL LIST, AND [facility] WAS NOT ABLE TO OFFER A BED. INFO RELAYED TO GERALD. GERALD STATED THAT THE PREVIOUS CM SHOULD HAVE TOLD HER THIS SO THAT SHE COULD ASK FOR [facility]. THIS MAGNET VALVE ASSEMBLER REMINDED GERALD THAT PATINT MADE HIS DECISION TO STAY IN [place]. GERALD STATES THAT THIS MAGNET VALVE ASSEMBLER HAS NO RIGHT TO TALK TO HER FATHER WITHOUT ONE THE [facility], AND THAT THEY MAKE DECISIONS FOR HIM. PER REVIEW OF RECORDS, NO HCP INVOKED HAS BEEN LOCATED, AND BECUASE PATIENT CAN SPEAK FOR HIMSELF, IT IS THE BEST GUESS THAT THERE IS NO INVOKED HCP. DAUGHTER IS AWARE THAT [facility] IS CLOSED ON THE WEEKEND, AND THAT AUTH IS ALREADY GIVEN TO A FACILITY THAT PATIENT AGREED TO. PER REVIEW OF CASE MANAGEMENT NOTES, NO [facility] WAS REQUESTED DURING REFERRAL PROCESS.
--- NOTE | 2020-12-29 12:30 | PM.IMPN ---
Progress Note: A&P (1) Foot ulcer: Status: Acute <Gracia Camacho NP - Last Filed: 12/29/20 12:35> Assessment and Plan: 85-year-old Cuban-speaking male admitted with left lower extremity edema with history of peripheral arterial disease. Patient reports that this swelling has been ongoing over the last several months but worse over the last several weeks. 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 Diabetic foot wounds/Vascular wounds/leg edema normal BNP, does not appear to be fluid overloaded, multiple areas of wounds on his left foot history of peripheral arterial disease; arterial ultrasound of left lower extremity PVD with decreased flow present in SFA seen evaluated by vascular surgery with no recommendation for surgery, managed conservatively venous US neg for DVT MRI of foot showing osteomyeltis stop keflex, start vancomycin and zosyn, will need picc line ID to follow Normocytic anemia. No signs of bleeding s/p 1 unit prbc with improvement in his h/h Dyspnea improved with transfusion of 1 unit prbc Hyperkalemia resolved Hypertension. Stable blood pressure Continue amlodipine Atrial fibrillation. Continue Eliquis and atenolol Diabetes mellitus. Sliding scale, ADA diet Diabetic neuropathy Continue gabapentin BPH Continue tamsulosin Mood Continue fluoxetine Full Code DVT pptx, Eliquis Dispo: likely will need STR (pt eval ordered) Attending Dr. Holland <Gracia Camacho NP - Last Filed: 12/29/20 12:35> Subjective Subjective Date of Service: 12/29/20 <Gracia Camacho NP - Last Filed: 12/29/20 12:35> 12/30/20 <Osvaldo Holland MD - Last Filed: 12/30/20 12:17> Interval History: Follow up left leg osteomyeltis Osteo on MRI Pain better controlled today cancel discharge <Gracia Camacho NP - Last Filed: 12/29/20 12:35> Physical Exam Vital Signs: Vital Signs: Last Vital Signs Temp 97.0 F 12/29/20 11:24 Pulse 76 12/29/20 11:24 Resp 18 12/29/20 11:24 BP 164/84 H 12/29/20 11:24 Pulse Ox 94 12/29/20 11:24 Body Mass Index 27.1 <Gracia Camacho NP - Last Filed: 12/29/20 12:35> Appearing in no acute distress lung sounds are clear to auscultation heart regular rate rhythm, clear S1, S2 positive bowel sounds, abdomen is soft, nontender neuro patient is alert x3, no focal deficits BKA stump with chronic dermatitis Left leg with dermatitis, improving erythema multiple wound areas to foot <Gracia Camacho NP - Last Filed: 12/29/20 12:35> Objective Data Current Medications Generic Name Dose Route Start Last Admin Trade Name Andreina PRN Reason Stop Dose Admin Acetaminophen 650 mg 12/25/20 16:27 12/25/20 17:06 Acetaminophen 325 Mg Tablet PO 650 mg Q6H PRN Administration Pain, Mild (Pain Scale 1-3) Amlodipine Besylate 10 mg 12/26/20 09:00 12/29/20 09:01 Amlodipine Besylate 10 Mg Tablet PO 10 mg DAILY BREE Administration Protocol Apixaban 5 mg 12/25/20 21:00 12/29/20 09:01 Apixaban 5 Mg Tablet PO 5 mg BID BREE Administration Ascorbic Acid 500 mg 12/25/20 21:00 12/29/20 09:01 Ascorbic Acid 500 Mg Tablet PO 500 mg BID BREE Administration Atenolol 25 mg 12/26/20 09:00 12/29/20 09:01 Atenolol 25 Mg Tablet PO 25 mg DAILY BREE Administration Protocol Atorvastatin Calcium 20 mg 12/25/20 21:00 12/28/20 20:03 Atorvastatin Calcium 20 Mg Tablet PO 20 mg BEDTIME BREE Administration Ferrous Sulfate 324 mg 12/27/20 09:00 12/29/20 09:02 Ferrous Sulfate 324 Mg Tablet. PO 324 mg BID BREE Administration Fluoxetine HCl 20 mg 12/26/20 09:00 12/29/20 09:01 Fluoxetine Hcl 20 Mg Capsule PO 20 mg DAILY BREE Administration Furosemide 60 mg 12/26/20 09:00 12/29/20 09:02 Furosemide 20 Mg Tablet PO 60 mg DAILY BREE Administration Protocol Gabapentin 300 mg 12/26/20 08:00 12/29/20 09:01 Gabapentin 300 Mg Capsule PO 300 mg BID@0800,1400 BREE Administration Gabapentin 600 mg 12/25/20 21:00 12/28/20 20:03 Gabapentin 600 Mg Tablet PO 600 mg BEDTIME BREE Administration Hydromorphone HCl 0.5 mg 12/25/20 20:15 12/29/20 10:31 Hydromorphone Hcl 0.5 Mg/0.5 Ml Syringe IVPUSH 0.5 mg Q4H PRN Administration Breakthrough Pain Cefazolin Sodium 1 gm/ Sodium 50 mls @ 100 mls/hr 12/28/20 10:00 12/29/20 11:01 Chloride IV Infused Q8H BREE Infusion Vancomycin HCl 1,000 mg/ 270 mls @ 270 mls/hr 12/29/20 12:30 Sodium Chloride IV Q12H BREE Insulin Human Lispro 0 unit 12/25/20 21:00 12/29/20 11:50 Insulin Lispro 100 Unit/Ml 3 Ml Vial SUBCUT Not Given QIDACHS [facility] Protocol Lactic Acid 1 appl 12/28/20 21:00 12/29/20 09:14 Ammonium Lactate 12 % Cream 140 Gm Tube TOPICAL 1 appl BID BREE Administration Protocol Ondansetron HCl 4 mg 12/25/20 16:27 Ondansetron Hcl 4 Mg/2 Ml Vial IVPUSH Q8H PRN Nausea and Vomiting Oxycodone HCl 5 mg 12/26/20 15:45 12/28/20 18:35 Oxycodone Hcl Immed Release 5 Mg Tablet PO 5 mg Q4H PRN Administration Pain, Mild (Pain Scale 1-3) Pharmacy Consult 1 each 12/25/20 14:58 Consult Rx Perform Med Rec MISCELLANE ONCE PRN Consult order Pharmacy Consult 1 each 12/25/20 15:25 Consult Rx Perform Med Rec MISCELLANE ONCE PRN Consult order Pharmacy Consult 1 each 12/29/20 12:28 Consult Rx Vancomycin Dosing MISCELLANE DAILY PRN Consult order Risperidone 0.25 mg 12/25/20 21:00 12/28/20 20:03 Risperidone 0.25 Mg Tablet PO 0.25 mg BEDTIME BREE Administration Sodium Chloride 3 ml 12/26/20 00:00 12/29/20 09:02 0.9 % Sodium Chloride Flush 3 Ml Syringe IVFLUSH 3 ml QSHIFT BREE Administration Tamsulosin HCl 0.4 mg 12/26/20 17:00 12/28/20 16:21 Tamsulosin Hcl 0.4 Mg Capsule PO 0.4 mg DAILY@1700 BREE Administration Vitamin D 25 mcg 12/26/20 09:00 12/29/20 09:01 Cholecalciferol (Vitamin D3) 25 Mcg Tablet PO 25 mcg DAILY BREE Administration <Gracia Camacho NP - Last Filed: 12/29/20 12:35> Labs CBC & Chem 7: : 12/28/20 07:07 12/29/20 12:51 <Gracia Camacho NP - Last Filed: 12/29/20 12:35> Labs: Laboratory Results - last 24 hr 12/28/20 12/28/20 12/29/20 16:08 20:31 07:22 POC Glucose 113 162 H 134 H COVID-19 ([facility]) COVID-19 Clin Com 12/29/20 12/29/20 10:40 11:23 POC Glucose 136 H COVID-19 ([facility]) Negative COVID-19 Clin Com See Note <Gracia Camacho NP - Last Filed: 12/29/20 12:35> Quality Stroke Does the patient have a stroke diagnosis?: No <Gracia Camacho NP - Last Filed: 12/29/20 12:35> VTE Prior VTE?: No <Gracia Camacho NP - Last Filed: 12/29/20 12:35> VTE Risk Level:: Medical - moderate - high <Gracia Camacho NP - Last Filed: 12/29/20 12:35> VTE Device Contraindication: Treatment Not Indicated <Gracia Camacho NP - Last Filed: 12/29/20 12:35> VTE Drug Contraindication: N/A - Med Ordered <Gracia Camacho NP - Last Filed: 12/29/20 12:35>
--- NOTE | 2020-12-29 12:39 | MHC.CM.PN ---
FAMILY (IN ROOM) THREATENING THIS SOUND ENGINEER, STATING YOU HUNG UP ON MY SISTER AND YOU HAVE ATTITUDE CASE MANAGEMENT EXPLAINED THAT CONVERSATION NEEDS TO HAPPEN WITH PATIENT, HE IS ALERT AND ORIENTED, AND THEN DISCUSSION CAN BE HAD WITH FAMILY. SISTER, (DENNIS/SECONDARY HCP) STATES THAT SHE DOES NOT KNOW WHY CASE MANAGEMENT IS COMING IN TO TALK WITH THE PATIENT WHEN 'ALL THIS TIME YOU GUYS HAVE BEEN TALKING WITH US THIS SOUND ENGINEER AGAIN EXPLAINED THAT PATIENT IS ALERT AND ORIENTED AND CONVERSATIONS DHAVAL TO BE HAD WITH PATIENT FIRST. PATIENT'S SON (IN ROOM) STARTED SWEARING AT THIS SOUND ENGINEER, ASKING WHO DO YOU THINK YOU ARE? SHOW SOME PROFESSIONALISM DAUGHTER DENNIS ASKED FOR THIS SOUND ENGINEER'S DIRECTOR OF PHYSICAL EDUCATION NAME AND NUMBER, BOTH GIVEN. THIS SOUND ENGINEER EXPLAINED THAT DIRECTOR OF PHYSICAL EDUCATION HAS KNOWN THIS SOUND ENGINEER FOR A LONG TIME NOW AND UNDERSTANDS THESE SITUATIONS, AND WILL LIKELY READ THE SAME NOTES THAT THIS SOUND ENGINEER HAS READ PRIOR TO SECURING A BED FOR THE PATIENT. DENNIS DID NOT WANT TO LET THIS SOUND ENGINEER FINISH SPEAKING. ATTEMPTS TO DIFFUSE WERE UNSUCCESSFUL. THIS SOUND ENGINEER LEFT ROOM TO ASK FOR RN DIRECTOR OF PHYSICAL EDUCATION TO HEAR OUT THE COMPLAINTS UPON THIS SOUND ENGINEER'SRETURN TO ROOM, IT WAS EXPLAINED TO DENNIS THAT A CALL HAD BEEN PLACED TO [facility] IN [place] TO ASK IF ANY BEDS WERE AVAILABLE. [facility] STATES THAT THEY CURRENTLY HAVE TWO BEDS AND ARE WILLING TO REVIEW. PATIENT GIVES PERMISSION FOR A REFERRAL TO [facility]; NOW PLACED. .TIGER TEXT RECEIVED FROM BRIAN, AND MRI SHOWS [facility] CANCELLED. [facility], [facility], AND [facility] MADE AWARE. UNIT AND RN ALSO MADE AWARE.
[2020-12-29 13:34] LABS: Creatinine Clr Calc Pharmacy 59.1; Estimated Glomerular Filt Rate > 60
[2020-12-29] MEDS: Piperacillin Sodium/Tazobactam 3.375 GM in 0.9 % Sodium Chloride 50 ML IV ×2 (13:37→18:40)
[2020-12-29 16:00] VITALS: BP 161/65; PULSE 80; RESP 19; TEMP 36.6; O2SAT 93
[2020-12-29] MEDS: vancomycin HCL 1,500 MG in 0.9 % Sodium Chloride 500 ML 333.33 MG IV (16:08)
[2020-12-29 17:00] LABS: Glucose, Whole Blood 172 mg/dL (60-115)
[2020-12-29] MEDS: Insulin Lispro 100 UNIT/ML 3 ML VIAL SUBCUT ×2 (17:09→20:34)
[2020-12-29] MEDS: Tamsulosin HCL 0.4 MG CAPSULE PO (17:12)
[2020-12-29 20:00] VITALS: BP 160/64; PULSE 83; RESP 20; TEMP 36.2; O2SAT 96
[2020-12-29 20:15] LABS: Glucose, Whole Blood 154 mg/dL (60-115)
[2020-12-29] MEDS: Gabapentin 600 MG TABLET PO (20:34)
[2020-12-29] MEDS: Atorvastatin Calcium 20 MG TABLET PO (20:34)
[2020-12-29] MEDS: risperiDONE 0.25 MG TABLET PO (20:34)
[2020-12-29 23:40] VITALS: BP 192/83; PULSE 78; RESP 18; TEMP 36.3; O2SAT 95
[2020-12-30] MEDS: Piperacillin Sodium/Tazobactam 3.375 GM in 0.9 % Sodium Chloride 50 ML IV ×5 (00:16→23:31)
[2020-12-30 04:00] VITALS: BP 151/88; PULSE 82; RESP 18; TEMP 36.2; O2SAT 96
[2020-12-30] MEDS: oxyCODONE HCl Immed Release 5 MG TABLET PO (06:41)
[2020-12-30 07:45] VITALS: BP 155/76; PULSE 84; RESP 18; TEMP 36.6; O2SAT 90
[2020-12-30 07:55] LABS: Glucose, Whole Blood 127 mg/dL (60-115)
[2020-12-30] MEDS: Furosemide 20 MG TABLET 60 MG PO (07:59)
[2020-12-30] MEDS: Ascorbic Acid 500 MG TABLET PO ×2 (08:01→20:34)
[2020-12-30] MEDS: 0.9 % Sodium Chloride Flush 3 ML SYRINGE IVFLUSH ×2 (08:01→20:35)
[2020-12-30] MEDS: Cholecalciferol (Vitamin D3) 25 MCG TABLET PO (08:01)
[2020-12-30] MEDS: Gabapentin 300 MG CAPSULE PO (08:01)
[2020-12-30] MEDS: FLUoxetine HCl 20 MG CAPSULE PO (08:01)
[2020-12-30] MEDS: amLODIPine Besylate 10 MG TABLET PO (08:01)
[2020-12-30] MEDS: atenoloL 25 MG TABLET PO (08:01)
[2020-12-30] MEDS: Apixaban 5 MG TABLET PO ×2 (08:01→20:34)
[2020-12-30] MEDS: Ferrous Sulfate 324 MG TABLET.DR PO ×2 (08:01→20:34)
[2020-12-30] MEDS: Ammonium Lactate 12 % Cream 140 GM TUBE 1 APPL TOPICAL ×2 (08:05→20:39)
[2020-12-30] MEDS: HYDROmorphone HCl 0.5 MG/0.5 ML SYRINGE IVPUSH (09:40)
--- NOTE | 2020-12-30 11:20 | PM.IMPN ---
Progress Note: A&P (1) Anasarca: Status: Acute <Gracia Camacho NP - Last Filed: 12/30/20 11:31> Assessment and Plan: 85-year-old Swazi-speaking male admitted with left lower extremity edema with history of peripheral arterial disease. Patient reports that this swelling has been ongoing over the last several months but worse over the last several weeks. 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 No signs of bleeding s/p 1 unit prbc with improvement in his h/h Dyspnea improved with transfusion of 1 unit prbc Hyperkalemia resolved Hypertension. Stable blood pressure Continue amlodipine Atrial fibrillation. Continue Eliquis and atenolol Diabetes mellitus. Sliding scale, ADA diet Diabetic neuropathy Continue gabapentin BPH Continue tamsulosin Mood Continue fluoxetine Full Code DVT pptx, Eliquis Dispo: likely will need STR (pt eval ordered) Attending Dr. Washburn <Gracia Camacho NP - Last Filed: 12/30/20 11:31> Subjective Subjective Date of Service: 12/30/20 <Gracia Camacho NP - Last Filed: 12/30/20 11:31> 12/30/20 <Markus Washburn MD - Last Filed: 12/30/20 14:34> Interval History: Follow up osteomyelitis Sitting up in bed feels constipated <Gracia Camacho NP - Last Filed: 12/30/20 11:31> Physical Exam Vital Signs: Vital Signs: Last Vital Signs Temp 97.9 F 12/30/20 07:45 Pulse 84 12/30/20 07:45 Resp 18 12/30/20 07:45 BP 155/76 H 12/30/20 07:45 Pulse Ox 90 L 12/30/20 07:45 Body Mass Index 27.1 <Gracia Camacho NP - Last Filed: 12/30/20 11:31> Appearing in no acute distress lung sounds are clear to auscultation heart regular rate rhythm, clear S1, S2 positive bowel sounds, abdomen is soft, nontender neuro patient is alert x3, no focal deficits <Gracia Cmaacho INGREDIENT MIXER - Last Filed: 12/30/20 11:31> Objective Data Current Medications Generic Name Dose Route Start Last Admin Trade Name Andreina PRN Reason Stop Dose Admin Acetaminophen 650 mg 12/25/20 16:27 12/25/20 17:06 Acetaminophen 325 Mg Tablet PO 650 mg Q6H PRN Administration Pain, Mild (Pain Scale 1-3) Amlodipine Besylate 10 mg 12/26/20 09:00 12/30/20 08:01 Amlodipine Besylate 10 Mg Tablet PO 10 mg DAILY BREE Administration Protocol Apixaban 5 mg 12/25/20 21:00 12/30/20 08:01 Apixaban 5 Mg Tablet PO 5 mg BID BREE Administration Ascorbic Acid 500 mg 12/25/20 21:00 12/30/20 08:01 Ascorbic Acid 500 Mg Tablet PO 500 mg BID BREE Administration Atenolol 25 mg 12/26/20 09:00 12/30/20 08:01 Atenolol 25 Mg Tablet PO 25 mg DAILY BREE Administration Protocol Atorvastatin Calcium 20 mg 12/25/20 21:00 12/29/20 20:34 Atorvastatin Calcium 20 Mg Tablet PO 20 mg BEDTIME BREE Administration Ferrous Sulfate 324 mg 12/27/20 09:00 12/30/20 08:01 Ferrous Sulfate 324 Mg Tablet.Dr PO 324 mg BID BREE Administration Fluoxetine HCl 20 mg 12/26/20 09:00 12/30/20 08:01 Fluoxetine Hcl 20 Mg Capsule PO 20 mg DAILY BREE Administration Furosemide 60 mg 12/26/20 09:00 12/30/20 07:59 Furosemide 20 Mg Tablet PO 60 mg DAILY BREE Administration Protocol Gabapentin 300 mg 12/26/20 08:00 12/30/20 08:01 Gabapentin 300 Mg Capsule PO 300 mg BID@0800,1400 BREE Administration Gabapentin 600 mg 12/25/20 21:00 12/29/20 20:34 Gabapentin 600 Mg Tablet PO 600 mg BEDTIME BREE Administration Hydromorphone HCl 0.5 mg 12/25/20 20:15 12/30/20 09:40 Hydromorphone Hcl 0.5 Mg/0.5 Ml Syringe IVPUSH 0.5 mg Q4H PRN Administration Breakthrough Pain Piperacillin Sod/Tazobactam 50 mls @ 100 mls/hr 12/29/20 12:30 12/30/20 06:36 Sod 3.375 gm/ Sodium Chloride IV Infused Q6H BREE Infusion Vancomycin HCl 1,500 mg/ 500 mls @ 333.333 mls/hr 12/29/20 15:00 12/29/20 17:54 Sodium Chloride IV Infused Q24H BREE Infusion Insulin Human Lispro 0 unit 12/25/20 21:00 12/30/20 07:51 Insulin Lispro 100 Unit/Ml 3 Ml Vial SUBCUT Not Given QIDACHS [facility] Protocol Lactic Acid 1 appl 12/28/20 21:00 12/30/20 08:05 Ammonium Lactate 12 % Cream 140 Gm Tube TOPICAL 1 appl BID BREE Administration Protocol Ondansetron HCl 4 mg 12/25/20 16:27 Ondansetron Hcl 4 Mg/2 Ml Vial IVPUSH Q8H PRN Nausea and Vomiting Oxycodone HCl 5 mg 12/26/20 15:45 12/30/20 06:41 Oxycodone Hcl Immed Release 5 Mg Tablet PO 5 mg Q4H PRN Administration Pain, Mild (Pain Scale 1-3) Pharmacy Consult 1 each 12/25/20 14:58 Consult Rx Perform Med Rec MISCELLANE ONCE PRN Consult order Pharmacy Consult 1 each 12/25/20 15:25 Consult Rx Perform Med Rec MISCELLANE ONCE PRN Consult order Pharmacy Consult 1 each 12/29/20 12:28 Consult Rx Vancomycin Dosing MISCELLANE DAILY PRN Consult order Polyethylene Glycol 17 gm 12/30/20 11:30 Polyethylene Glycol 3350 17 Gm Powd.Pack PO BID BREE Risperidone 0.25 mg 12/25/20 21:00 12/29/20 20:34 Risperidone 0.25 Mg Tablet PO 0.25 mg BEDTIME BREE Administration Sodium Chloride 3 ml 12/26/20 00:00 12/30/20 08:01 0.9 % Sodium Chloride Flush 3 Ml Syringe IVFLUSH 3 ml QSHIFT BREE Administration Tamsulosin HCl 0.4 mg 12/26/20 17:00 12/29/20 17:12 Tamsulosin Hcl 0.4 Mg Capsule PO 0.4 mg DAILY@1700 BREE Administration Vitamin D 25 mcg 12/26/20 09:00 12/30/20 08:01 Cholecalciferol (Vitamin D3) 25 Mcg Tablet PO 25 mcg DAILY BREE Administration <Gracia Camacho NP - Last Filed: 12/30/20 11:31> Labs CBC & Chem 7: : 12/28/20 07:07 12/29/20 12:51 <Gracia Camacho NP - Last Filed: 12/30/20 11:31> Labs: Laboratory Results - last 24 hr 12/29/20 12/29/20 12/29/20 11:23 12:51 16:56 Estim Creat Clear Calc 59.1 Estimated GFR > 60 POC Glucose 136 H 172 H 12/29/20 12/30/20 20:03 07:44 Estim Creat Clear Calc Estimated GFR POC Glucose 154 H 127 H <Gracia Camacho NP - Last Filed: 12/30/20 11:31> Quality Stroke Does the patient have a stroke diagnosis?: No <Gracia Camacho NP - Last Filed: 12/30/20 11:31> VTE Prior VTE?: No <Gracia Camacho NP - Last Filed: 12/30/20 11:31> VTE Risk Level:: Medical - moderate - high <Gracia Camacho NP - Last Filed: 12/30/20 11:31> VTE Device Contraindication: Treatment Not Indicated <Gracia Camacho NP - Last Filed: 12/30/20 11:31> VTE Drug Contraindication: N/A - Med Ordered <Gracia Camacho NP - Last Filed: 12/30/20 11:31>
[2020-12-30 11:27] VITALS: BP 158/63; PULSE 75; RESP 18; TEMP 36.3; O2SAT 94
[2020-12-30 11:45] LABS: Glucose, Whole Blood 152 mg/dL (60-115)
[2020-12-30] MEDS: polyethylene glycoL 3350 17 GM POWD.PACK PO ×2 (12:18→20:35)
[2020-12-30] MEDS: vancomycin HCL 1,500 MG in 0.9 % Sodium Chloride 500 ML 333.33 MG IV (15:34)
[2020-12-30 16:15] LABS: Glucose, Whole Blood 129 mg/dL (60-115)
[2020-12-30] MEDS: Tamsulosin HCL 0.4 MG CAPSULE PO (18:01)
[2020-12-30 20:00] VITALS: BP 149/64; PULSE 76; RESP 20; TEMP 36.1; O2SAT 94
[2020-12-30] MEDS: risperiDONE 0.25 MG TABLET PO (20:34)
[2020-12-30] MEDS: Insulin Lispro 100 UNIT/ML 3 ML VIAL SUBCUT (20:34)
[2020-12-30] MEDS: Gabapentin 600 MG TABLET PO (20:35)
[2020-12-30] MEDS: Atorvastatin Calcium 20 MG TABLET PO (20:35)
[2020-12-30 20:36] LABS: Glucose, Whole Blood 158 mg/dL (60-115)
[2020-12-31] VITALS (9 sets, daily range): BP systolic 129–186; BP diastolic 64–79; PULSE 65–94; RESP 16–22; TEMP 36.1–37.2; O2SAT 9–95; BMI 27.1
[2020-12-31] MEDS: oxyCODONE HCl Immed Release 5 MG TABLET PO ×2 (00:14→09:12)
[2020-12-31 05:35] LABS: Hemoglobin 8.6 g/dl (14.0-18.0); Mean Corpuscular HGB Conc 29.7 g/dl (31.0-36.0); Mean Corpuscular Hemoglobin 26.5 pg (27.0-33.0); Mean Corpuscular Volume 89.5 fL (80-98); Platelet Count 233 X10*3/uL (160-400); Red Blood Count 3.24 X10*6/uL (4.60-5.80); Red Cell Distribution Width 15.1 % (11.0-16.0); White Blood Count 7.3 X10*3/uL (4.8-10.8)
[2020-12-31] MEDS: Piperacillin Sodium/Tazobactam 3.375 GM in 0.9 % Sodium Chloride 50 ML IV ×3 (05:40→22:09)
[2020-12-31 05:58] LABS: B Type Natriuretic Peptide 275 pg/mL (<100)
[2020-12-31 06:03] LABS: Anion Gap 13 (12-20); Blood Urea Nitrogen 28 mg/dL (9-16); Calcium 8.3 mg/dL (8.4-10.2); Carbon Dioxide 29 mmol/L (22-29); Chloride 105 mmol/L (96-108); Creatinine Clr Calc Pharmacy 59.1; Estimated Glomerular Filt Rate > 60; Glucose Random 110 mg/dL (60-115); Potassium 2.9 mmol/L (3.3-5.1); Sodium 144 mmol/L (135-145)
[2020-12-31 07:57] LABS: Glucose, Whole Blood 107 mg/dL (60-115)
[2020-12-31] MEDS: Gabapentin 300 MG CAPSULE PO ×2 (09:05→14:03)
[2020-12-31] MEDS: polyethylene glycoL 3350 17 GM POWD.PACK PO ×2 (09:05→22:09)
[2020-12-31] MEDS: 0.9 % Sodium Chloride Flush 3 ML SYRINGE IVFLUSH ×3 (09:05→22:09)
[2020-12-31] MEDS: FLUoxetine HCl 20 MG CAPSULE PO (09:06)
[2020-12-31] MEDS: Ascorbic Acid 500 MG TABLET PO ×2 (09:06→22:10)
[2020-12-31] MEDS: Cholecalciferol (Vitamin D3) 25 MCG TABLET PO (09:06)
[2020-12-31] MEDS: atenoloL 25 MG TABLET PO (09:06)
[2020-12-31] MEDS: amLODIPine Besylate 10 MG TABLET PO (09:06)
[2020-12-31] MEDS: Ferrous Sulfate 324 MG TABLET.DR PO ×2 (09:06→22:11)
[2020-12-31] MEDS: Furosemide 20 MG TABLET 60 MG PO (09:06)
[2020-12-31] MEDS: Apixaban 5 MG TABLET PO ×2 (09:06→22:10)
[2020-12-31] MEDS: Ammonium Lactate 12 % Cream 140 GM TUBE 1 APPL TOPICAL ×2 (09:07→22:29)
[2020-12-31] MEDS: Potassium Chloride ER 20 MEQ TAB.ER.PRT 40 MEQ PO (10:34)
[2020-12-31] MEDS: Potassium Chloride/H20 10 MEQ/100 ML PIGGYBACK 100 MEQ IV ×4 (11:00→16:31)
--- NOTE | 2020-12-31 11:13 | PC.NURSE ---
Skin/Wound assessment completed today. Patient has Stage 2 to sacrum/coccyx. Triad applied covered with foam. Also has venous/stasis ulcer to posterior left leg, silver alginate applied covered with gauze, abd pad and roll gauze. Silver alginate applied to venous ulcer at base of toes covered with gauze and roll gauze. Diabetic ulcer with eschar and osteomyelitis on medial left foot, betadine applied. pressure ulcer to left heel Stage 1, bootie in place. All wounds present on admission.
[2020-12-31] MEDS: Insulin Lispro 100 UNIT/ML 3 ML VIAL SUBCUT (11:59)
[2020-12-31 12:30] LABS: Glucose, Whole Blood 301 mg/dL (60-115)
--- NOTE | 2020-12-31 13:32 | P.PICC_ITS ---
PICC Line Insertion NPICC Diagnosis: OSTEOMYELITIS Indication: DETENTION IV ANTIBIOTICS Pertinent Labs: REVIEWED Technique: Following informed consent including risks, benefits and alternatives and using sterile technique including cap and mask, sterile gown, glove and drape, the RIGHT arm was prepped and draped in the usual sterile fashion of full barrier technique with CHG. Following completion of [place] Protocol the skin and soft tissues were anesthetized with 1% Lidocaine plain. Using ultrasound guidance, BRACHIAL vein access was obtained IN SINGLE ATTEMPT BY THIS RN. Over an 0.018 wire through peel-away sheath, a 4-INDIAN, SINGLE LUMEN, PASV PICC line was positioned. Catheter length is 39 CM internal length, 0 CM external length, for a total trimmed length of 39 CM. The procedure was performed in S-272. Ultrasound was used to document vein patency and for needle entry. A formal ultrasound picture was recorded. Vascular Product Support Specialist has NOT released the line for use - UNDERLYING AFIB AND UNABLE TO CONFIRM TIP PLACEMENT WITH SHERLOCK 3CG; CXR ORDERED FOR PICC TIP CONFIRMATION. PICC is currently dressed with a StatLock, Tegaderm, and CHG disc. Verification has been performed for blood return and line patency. Arm Circumference: 33.5 CM Equipment: Overhead.fm POWERPICC SOLO Catheter Type: 4-INDIAN, SINGLE LUMEN, PASV Lot #: [id number]
--- NOTE | 2020-12-31 13:56 | P.PNIM_ITS ---
Subjective Subjective Date of Service: 12/31/20 Interval History: History taken in [place] from pt Minimal foot pain No fever Going for PICC today Physical Exam Vital Signs: Vital Signs: Last Vital Signs Temp 98.8 F 12/31/20 11:46 Pulse 70 12/31/20 11:46 Resp 18 12/31/20 11:46 BP 150/74 H 12/31/20 11:46 Pulse Ox 92 12/31/20 11:46 Body Mass Index 27.1 Gen: in no acute distress HEENT: sclera anicteric, moist mucus membranes Neck: supple Lungs: clear to auscultation bilaterally Heart: regular rate and rhythm, no murmurs Abd: soft, non-tender, non-distended Ext: no edema Skin: large ulcer to base of 2nd toe, multiple smaller ulcers on midfoot and ankle Neuro: alert and oriented x3 Psych: appropriate affect Objective Data Current Medications Generic Name Dose Route Start Last Admin Trade Name Freq PRN Reason Stop Dose Admin Acetaminophen 650 mg 12/25/20 16:27 12/25/20 17:06 Acetaminophen 325 Mg Tablet PO 650 mg Q6H PRN Administration Pain, Mild (Pain Scale 1-3) Amlodipine Besylate 10 mg 12/26/20 09:00 12/31/20 09:06 Amlodipine Besylate 10 Mg Tablet PO 10 mg DAILY BREE Administration Protocol Apixaban 5 mg 12/25/20 21:00 12/31/20 09:06 Apixaban 5 Mg Tablet PO 5 mg BID BREE Administration Ascorbic Acid 500 mg 12/25/20 21:00 12/31/20 09:06 Ascorbic Acid 500 Mg Tablet PO 500 mg BID BREE Administration Atenolol 25 mg 12/26/20 09:00 12/31/20 09:06 Atenolol 25 Mg Tablet PO 25 mg DAILY BREE Administration Protocol Atorvastatin Calcium 20 mg 12/25/20 21:00 12/30/20 20:35 Atorvastatin Calcium 20 Mg Tablet PO 20 mg BEDTIME BREE Administration Bisacodyl 10 mg 12/30/20 11:31 Bisacodyl 10 Mg Supp.Rect LA DAILY PRN Constipation Ferrous Sulfate 324 mg 12/27/20 09:00 12/31/20 09:06 Ferrous Sulfate 324 Mg Tablet.Dr PO 324 mg BID BREE Administration Fluoxetine HCl 20 mg 12/26/20 09:00 12/31/20 09:06 Fluoxetine Hcl 20 Mg Capsule PO 20 mg DAILY BREE Administration Furosemide 60 mg 12/26/20 09:00 12/31/20 09:06 Furosemide 20 Mg Tablet PO 60 mg DAILY BREE Administration Protocol Gabapentin 300 mg 12/26/20 08:00 12/31/20 09:05 Gabapentin 300 Mg Capsule PO 300 mg BID@0800,1400 BREE Administration Gabapentin 600 mg 12/25/20 21:00 12/30/20 20:35 Gabapentin 600 Mg Tablet PO 600 mg BEDTIME BREE Administration Piperacillin Sod/Tazobactam 50 mls @ 100 mls/hr 12/29/20 12:30 12/31/20 06:17 Sod 3.375 gm/ Sodium Chloride IV Infused Q6H BREE Infusion Vancomycin HCl 1,500 mg/ 500 mls @ 333.333 mls/hr 12/29/20 15:00 12/30/20 17:19 Sodium Chloride IV Infused Q24H BERE Infusion Potassium Chloride 10 meq in 100 mls @ 100 mls/hr 12/31/20 10:00 12/31/20 12:00 IV 12/31/20 13:59 Infused Q1H BREE Infusion Insulin Human Lispro 0 unit 12/25/20 21:00 12/31/20 11:59 Insulin Lispro 100 Unit/Ml 3 Ml Vial SUBCUT 8 unit QIDACHS BREE Administration Protocol Lactic Acid 1 appl 12/28/20 21:00 12/31/20 09:07 Ammonium Lactate 12 % Cream 140 Gm Tube TOPICAL 1 appl BID BREE Administration Protocol Ondansetron HCl 4 mg 12/25/20 16:27 Ondansetron Hcl 4 Mg/2 Ml Vial IVPUSH Q8H PRN Nausea and Vomiting Oxycodone HCl 5 mg 12/26/20 15:45 12/31/20 09:12 Oxycodone Hcl Immed Release 5 Mg Tablet PO 5 mg Q4H PRN Administration Pain, Mild (Pain Scale 1-3) Pharmacy Consult 1 each 12/25/20 14:58 Consult Rx Perform Med Rec MISCELLANE ONCE PRN Consult order Pharmacy Consult 1 each 12/25/20 15:25 Consult Rx Perform Med Rec MISCELLANE ONCE PRN Consult order Pharmacy Consult 1 each 12/29/20 12:28 Consult Rx Vancomycin Dosing MISCELLANE DAILY PRN Consult order Polyethylene Glycol 17 gm 12/30/20 11:30 12/31/20 09:05 Polyethylene Glycol 3350 17 Gm Powd.Pack PO 17 gm BID BREE Administration Risperidone 0.25 mg 12/25/20 21:00 12/30/20 20:34 Risperidone 0.25 Mg Tablet PO 0.25 mg BEDTIME BREE Administration Sodium Chloride 3 ml 12/26/20 00:00 12/31/20 09:05 0.9 % Sodium Chloride Flush 3 Ml Syringe IVFLUSH 3 ml QSHIFT BREE Administration Sodium Chloride 5 ml 12/31/20 15:00 0.9 % Sodium Chloride Flush 10 Ml Syringe IVFLUSH TID BREE Tamsulosin HCl 0.4 mg 12/26/20 17:00 12/30/20 18:01 Tamsulosin Hcl 0.4 Mg Capsule PO 0.4 mg DAILY@1700 BREE Administration Vitamin D 25 mcg 12/26/20 09:00 12/31/20 09:06 Cholecalciferol (Vitamin D3) 25 Mcg Tablet PO 25 mcg DAILY BREE Administration Labs CBC & Chem 7: 12/31/20 04:53 12/31/20 04:53 Labs: Laboratory Results - last 24 hr 12/30/20 12/30/20 12/31/20 16:10 20:31 04:53 WBC 7.3 RBC 3.24 L Hgb 8.6 L Hct 29.0 L MCV 89.5 MCH 26.5 L MCHC 29.7 L RDW 15.1 Plt Count 233 MPV 10.0 Absolute Nucleated RBC 0.000 Nucleated RBC % (auto) 0.0 Sodium Potassium Chloride Carbon Dioxide Anion Gap BUN Creatinine Estim Creat Clear Calc Estimated GFR POC Glucose 129 H 158 H Random Glucose Calcium Magnesium C-Reactive Protein B-Natriuretic Peptide 12/31/20 12/31/20 12/31/20 04:53 04:53 07:22 WBC RBC Hgb Hct MCV MCH MCHC RDW Plt Count MPV Absolute Nucleated RBC Nucleated RBC % (auto) Sodium 144 Potassium 2.9 L Chloride 105 Carbon Dioxide 29 Anion Gap 13 BUN 28 H Creatinine 1.02 Estim Creat Clear Calc 59.1 Estimated GFR > 60 POC Glucose 107 Random Glucose 110 Calcium 8.3 L Magnesium 2.0 C-Reactive Protein 13.70 H B-Natriuretic Peptide 275 H 12/31/20 11:47 WBC RBC Hgb Hct MCV MCH MCHC RDW Plt Count MPV Absolute Nucleated RBC Nucleated RBC % (auto) Sodium Potassium Chloride Carbon Dioxide Anion Gap BUN Creatinine Estim Creat Clear Calc Estimated GFR POC Glucose 301 H Random Glucose Calcium Magnesium C-Reactive Protein B-Natriuretic Peptide Assessment and Plan (1) Anasarca: Status: Acute Assessment and Plan: hospital d#7 85yo M with DM2, PAD s/p R BKA admitted for infected DM foot ulcers, found to have osteomyelitis involving the medial aspect of the 1st metatarsal head. # DM foot infection/osteomyelitis - per Vascular Surgery, no intervention recommended; manage medically - vanco + pip/jac d# per ID, PICC to be placed today # hypoK - replete IV/PO, recheck in am. was previously slightly hyperkalemic # normocytic anemia - improved s/p 1u pRBCs; no signs of bleeding; dyspnea improved; likely anemia of chronic disease # HTN - continue amlodipine # AF - continue atenlol - continue apixaban # PAD - continue statin # DM2 - correction-dose lispro # DM neuropathy - continue gabapentin # BPH - continue tamsulosin # mood disorder - continue fluoxetine, risperidone # VTE ppx - apixaban # dispo - plan STR Quality Stroke Does the patient have a stroke diagnosis?: No VTE Prior VTE?: No VTE Risk Level:: Medical - moderate - high VTE Device Contraindication: Treatment Not Indicated VTE Drug Contraindication: N/A - Med Ordered
[2020-12-31] MEDS: 0.9 % Sodium Chloride Flush 10 ML SYRINGE 5 ML IVFLUSH ×2 (14:36→22:10)
[2020-12-31 15:16] LABS: Vancomycin Trough 21.6 mcg/mL (10.0-20.0)
[2020-12-31] MEDS: Tamsulosin HCL 0.4 MG CAPSULE PO (16:30)
[2020-12-31 16:33] LABS: Glucose, Whole Blood 104 mg/dL (60-115)
[2020-12-31] MEDS: vancomycin HCL 1,000 MG in 0.9 % Sodium Chloride 250 ML 270 MG IV (17:58)
[2020-12-31 21:45] LABS: Glucose, Whole Blood 150 mg/dL (60-115)
[2020-12-31] MEDS: Acetaminophen 325 MG TABLET 650 MG PO (22:10)
[2020-12-31] MEDS: Atorvastatin Calcium 20 MG TABLET PO (22:11)
[2020-12-31] MEDS: Gabapentin 600 MG TABLET PO (22:11)
[2020-12-31] MEDS: risperiDONE 0.25 MG TABLET PO (22:11)
[2021-01-01] MEDS: Piperacillin Sodium/Tazobactam 3.375 GM in 0.9 % Sodium Chloride 50 ML IV ×4 (01:19→18:25)
[2021-01-01 04:00] VITALS: BP 142/79; PULSE 73; RESP 18; TEMP 36.3; O2SAT 92
[2021-01-01 07:17] VITALS: BP 166/74; PULSE 75; RESP 17; TEMP 36.7; O2SAT 96
[2021-01-01 07:19] LABS: Anion Gap 12 (12-20); Blood Urea Nitrogen 22 mg/dL (9-16); Calcium 8.6 mg/dL (8.4-10.2); Carbon Dioxide 29 mmol/L (22-29); Chloride 104 mmol/L (96-108); Creatinine Clr Calc Pharmacy 67.8; Estimated Glomerular Filt Rate > 60; Glucose Random 118 mg/dL (60-115); Sodium 141 mmol/L (135-145)
[2021-01-01] MEDS: 0.9 % Sodium Chloride Flush 10 ML SYRINGE 5 ML IVFLUSH ×3 (07:20→21:06)
[2021-01-01 07:28] LABS: Potassium 3.7 mmol/L (3.3-5.1)
[2021-01-01 07:31] LABS: Glucose, Whole Blood 113 mg/dL (60-115)
[2021-01-01] MEDS: Furosemide 20 MG TABLET 60 MG PO (08:12)
[2021-01-01] MEDS: Acetaminophen 325 MG TABLET 650 MG PO (08:12)
[2021-01-01 08:13] VITALS: BP 166/74; PULSE 75
[2021-01-01] MEDS: Apixaban 5 MG TABLET PO ×2 (08:13→21:07)
[2021-01-01] MEDS: FLUoxetine HCl 20 MG CAPSULE PO (08:13)
[2021-01-01] MEDS: Gabapentin 300 MG CAPSULE PO ×2 (08:13→14:39)
[2021-01-01] MEDS: Cholecalciferol (Vitamin D3) 25 MCG TABLET PO (08:13)
[2021-01-01] MEDS: amLODIPine Besylate 10 MG TABLET PO (08:13)
[2021-01-01] MEDS: Ammonium Lactate 12 % Cream 140 GM TUBE 1 APPL TOPICAL ×2 (08:13→21:11)
[2021-01-01] MEDS: Ferrous Sulfate 324 MG TABLET.DR PO ×2 (08:13→21:07)
[2021-01-01] MEDS: Ascorbic Acid 500 MG TABLET PO ×2 (08:13→21:07)
[2021-01-01] MEDS: atenoloL 25 MG TABLET PO (08:13)
--- NOTE | 2021-01-01 11:19 | MHC.CM.PN ---
Addendum entered by Anastasia Borges RN 01/01/21 13:01: PER SNF NO BED AVAILABLE TODAY, HOSPITALIST NOTIFIED AND OK TO KEEP PT UNTIL BED AVAILABLE TOMORROW 01/02, NSG UPDATED. Original Note: IMM 01/01/21, PT READY FOR D/C, PLAN IS [facility] FOR STR, [facility] FOR BLS TRANSPORT
[2021-01-01 11:27] VITALS: BP 151/69; PULSE 74; RESP 19; TEMP 37.1; O2SAT 92
[2021-01-01 11:38] LABS: Glucose, Whole Blood 155 mg/dL (60-115)
[2021-01-01] MEDS: Insulin Lispro 100 UNIT/ML 3 ML VIAL SUBCUT ×2 (12:03→17:15)
--- NOTE | 2021-01-01 13:16 | MHC.CM.PN ---
CM CONTACTED PT'S HCP RAJANI AT 1:05PM [phone] AFTER NOT BEING ABLE TO CONTACT GERALD AT NUMBER LISTED, RAJANI WAS UPDATED AND AWARE IF [facility] DOES NOT HAVE A BED AVAILABLE TOMORROW PT WILL NEED TO GO TO A DIFFERENT SNF, PER RAJANI [facility] IS SECOND CHOICE AND [facility] IS THIRD CHOICE. CM TO CONTACT FAMILY TOMORROW W/UPDATE ON WHICH SNF PT WILL TRANSFER TO.
--- NOTE | 2021-01-01 14:06 | HO.PM.IMPN ---
Subjective Subjective Date of Service: 01/01/21 Interval History: PICC placed No fever/chills No nausea/vomiting Physical Exam Vital Signs: Vital Signs: Last Vital Signs Temp 98.7 F 01/01/21 11:27 Pulse 74 01/01/21 11:27 Resp 19 01/01/21 11:27 BP 151/69 H 01/01/21 11:27 Pulse Ox 92 01/01/21 11:27 Body Mass Index 27.1 Gen: in no acute distress HEENT: sclera anicteric, moist mucus membranes Neck: supple Lungs: clear to auscultation bilaterally Heart: regular rate and rhythm, no murmurs Abd: soft, non-tender, non-distended Ext: no edema, PICC to RUE without signs of infection Skin: large ulcer to base of 2nd toe, multiple smaller ulcers on midfoot and ankle Neuro: alert and oriented x3 Psych: appropriate affect Objective Data Current Medications Generic Name Dose Route Start Last Admin Trade Name Freq PRN Reason Stop Dose Admin Acetaminophen 650 mg 12/25/20 16:27 01/01/21 08:12 Acetaminophen 325 Mg Tablet PO 650 mg Q6H PRN Administration Pain, Mild (Pain Scale 1-3) Amlodipine Besylate 10 mg 12/26/20 09:00 01/01/21 08:13 Amlodipine Besylate 10 Mg Tablet PO 10 mg DAILY BREE Administration Protocol Apixaban 5 mg 12/25/20 21:00 01/01/21 08:13 Apixaban 5 Mg Tablet PO 5 mg BID BREE Administration Ascorbic Acid 500 mg 12/25/20 21:00 01/01/21 08:13 Ascorbic Acid 500 Mg Tablet PO 500 mg BID BREE Administration Atenolol 25 mg 12/26/20 09:00 01/01/21 08:13 Atenolol 25 Mg Tablet PO 25 mg DAILY BREE Administration Protocol Atorvastatin Calcium 20 mg 12/25/20 21:00 12/31/20 22:11 Atorvastatin Calcium 20 Mg Tablet PO 20 mg BEDTIME BREE Administration Bisacodyl 10 mg 12/30/20 11:31 Bisacodyl 10 Mg Supp.Rect CA DAILY PRN Constipation Ferrous Sulfate 324 mg 12/27/20 09:00 01/01/21 08:13 Ferrous Sulfate 324 Mg Tablet.Dr PO 324 mg BID BREE Administration Fluoxetine HCl 20 mg 12/26/20 09:00 01/01/21 08:13 Fluoxetine Hcl 20 Mg Capsule PO 20 mg DAILY BREE Administration Furosemide 60 mg 12/26/20 09:00 01/01/21 08:12 Furosemide 20 Mg Tablet PO 60 mg DAILY BREE Administration Protocol Gabapentin 300 mg 12/26/20 08:00 01/01/21 08:13 Gabapentin 300 Mg Capsule PO 300 mg BID@0800,1400 BREE Administration Gabapentin 600 mg 12/25/20 21:00 12/31/20 22:11 Gabapentin 600 Mg Tablet PO 600 mg BEDTIME BREE Administration Piperacillin Sod/Tazobactam 50 mls @ 100 mls/hr 12/29/20 12:30 01/01/21 12:46 Sod 3.375 gm/ Sodium Chloride IV Infused Q6H BREE Infusion Vancomycin HCl 1,000 mg/ 270 mls @ 270 mls/hr 12/31/20 16:00 12/31/20 21:35 Sodium Chloride IV Infused Q24H BREE Infusion Insulin Human Lispro 0 unit 12/25/20 21:00 01/01/21 12:03 Insulin Lispro 100 Unit/Ml 3 Ml Vial SUBCUT 2 unit QIDACHS BREE Administration Protocol Lactic Acid 1 appl 12/28/20 21:00 01/01/21 08:13 Ammonium Lactate 12 % Cream 140 Gm Tube TOPICAL 1 appl BID BREE Administration Protocol Ondansetron HCl 4 mg 12/25/20 16:27 Ondansetron Hcl 4 Mg/2 Ml Vial IVPUSH Q8H PRN Nausea and Vomiting Pharmacy Consult 1 each 12/25/20 14:58 Consult Rx Perform Med Rec MISCELLANE ONCE PRN Consult order Pharmacy Consult 1 each 12/25/20 15:25 Consult Rx Perform Med Rec MISCELLANE ONCE PRN Consult order Pharmacy Consult 1 each 12/29/20 12:28 Consult Rx Vancomycin Dosing MISCELLANE DAILY PRN Consult order Polyethylene Glycol 17 gm 12/30/20 11:30 01/01/21 08:10 Polyethylene Glycol 3350 17 Gm Powd.Pack PO Not Given BID BREE Risperidone 0.25 mg 12/25/20 21:00 12/31/20 22:11 Risperidone 0.25 Mg Tablet PO 0.25 mg BEDTIME BREE Administration Sodium Chloride 3 ml 12/26/20 00:00 01/01/21 07:18 0.9 % Sodium Chloride Flush 3 Ml Syringe IVFLUSH Not Given QSHIFT BREE Sodium Chloride 5 ml 12/31/20 15:00 01/01/21 07:20 0.9 % Sodium Chloride Flush 10 Ml Syringe IVFLUSH 5 ml TID BREE Administration Tamsulosin HCl 0.4 mg 12/26/20 17:00 12/31/20 16:30 Tamsulosin Hcl 0.4 Mg Capsule PO 0.4 mg DAILY@1700 BREE Administration Vitamin D 25 mcg 12/26/20 09:00 01/01/21 08:13 Cholecalciferol (Vitamin D3) 25 Mcg Tablet PO 25 mcg DAILY BREE Administration Labs CBC & Chem 7: 12/31/20 04:53 01/01/21 06:17 Labs: Laboratory Results - last 24 hr 12/31/20 12/31/20 12/31/20 14:27 16:20 20:17 Sodium Potassium Chloride Carbon Dioxide Anion Gap BUN Creatinine Estim Creat Clear Calc Estimated GFR POC Glucose 104 150 H Random Glucose Calcium Vancomycin Trough 21.6 H 01/01/21 01/01/21 01/01/21 06:17 07:19 11:29 Sodium 141 Potassium 3.7 D Chloride 104 Carbon Dioxide 29 Anion Gap 12 BUN 22 H Creatinine 0.89 Estim Creat Clear Calc 67.8 Estimated GFR > 60 POC Glucose 113 155 H Random Glucose 118 H Calcium 8.6 Vancomycin Trough Assessment and Plan (1) Anasarca: Status: Acute Assessment and Plan: hospital d#8 85yo M with DM2, PAD s/p R BKA admitted for infected DM foot ulcers, found to have osteomyelitis involving the medial aspect of the 1st metatarsal head. # DM foot infection/osteomyelitis - per Vascular Surgery, no intervention recommended; manage medically - vanco + pip/jca d# per ID, PICC placed 12/31/20 - vancomycin trough supra-therapeutic; dose reduced and next trough due tomorrow at 15:00 # hypoK - repleted # normocytic anemia - improved s/p 1u pRBCs; no signs of bleeding; dyspnea improved; likely anemia of chronic disease # HTN - continue amlodipine + atenolol # AF - continue atenolol - continue apixaban # PAD - continue statin # DM2 - correction-dose lispro # DM neuropathy - continue gabapentin # BPH - continue tamsulosin # mood disorder - continue fluoxetine, risperidone # VTE ppx - apixaban # dispo - plan STR, bed available tomorrow Quality Stroke Does the patient have a stroke diagnosis?: No VTE Prior VTE?: No VTE Risk Level:: Medical - moderate - high VTE Device Contraindication: Treatment Not Indicated VTE Drug Contraindication: N/A - Med Ordered
[2021-01-01 14:47] LABS: COVID-19 Test Negative (Negative); IDNOW Serial# 9DD0AD1C
[2021-01-01 16:00] VITALS: BP 163/91; PULSE 81; RESP 16; TEMP 36.9; O2SAT 97
[2021-01-01] MEDS: vancomycin HCL 1,000 MG in 0.9 % Sodium Chloride 250 ML 270 MG IV (17:07)
[2021-01-01] MEDS: Tamsulosin HCL 0.4 MG CAPSULE PO (17:07)
[2021-01-01 17:13] LABS: Glucose, Whole Blood 268 mg/dL (60-115)
[2021-01-01 20:00] VITALS: BP 164/68; PULSE 76; RESP 16; TEMP 36.1; O2SAT 95
[2021-01-01] MEDS: Atorvastatin Calcium 20 MG TABLET PO (21:07)
[2021-01-01] MEDS: risperiDONE 0.25 MG TABLET PO (21:07)
[2021-01-01] MEDS: polyethylene glycoL 3350 17 GM POWD.PACK PO (21:07)
[2021-01-01] MEDS: Gabapentin 600 MG TABLET PO (21:07)
[2021-01-01] MEDS: 0.9 % Sodium Chloride Flush 3 ML SYRINGE IVFLUSH (21:08)
[2021-01-01 21:17] LABS: Glucose, Whole Blood 160 mg/dL (60-115)
[2021-01-02] VITALS: BP 158/73; PULSE 77; RESP 16; TEMP 37.1; O2SAT 99
[2021-01-02] MEDS: Piperacillin Sodium/Tazobactam 3.375 GM in 0.9 % Sodium Chloride 50 ML IV ×3 (01:28→11:49)
[2021-01-02 04:00] VITALS: BP 162/74; PULSE 77; RESP 20; TEMP 36; O2SAT 94
[2021-01-02 07:15] VITALS: BP 158/83; PULSE 69; RESP 19; TEMP 36.4; O2SAT 92
[2021-01-02 07:30] LABS: Glucose, Whole Blood 113 mg/dL (60-115)
--- NOTE | 2021-01-02 07:35 | P.CDIC_ITS ---
CDI Concurrent Query Service Date: 01/02/21 Documentation Clarification: Please clarify if you are treating a proba ble/suspected/likely or confirmed: Please indicate the depth/severity of the ulcer: -Limited to the breakdown of skin -With fat layer exposed -With necrosis of muscle -With necrosis of bone -Other -Unable to determine PLEASE DO NOT DELETE/MODIFY EXISTING CONTENT Additional information is needed in order to code to the highest accuracy and appropriate Severity of Illness (SOI). Please clarify the information noted below in your progress notes and discharge summary. Risk Factors/Clinical Indicators/Treatments large ulcer to base of 2nd toe, multiple smaller ulcers on midfoot and ankle as per MD progress note 01/01/21 CDS: Valentina Lawrence RN Contact Number: [phone] Please Review the information above and exercise your independent professional judgment in responding to the query. If you concur, pleas document in the PROGRESS NOTES and DISCHARGE SUMMARY. If you do not agree with the query, please document in the query above. THIS QUERY IS PART OF THE PERMANENT MEDICAL RECORD
[2021-01-02] MEDS: Apixaban 5 MG TABLET PO (08:34)
[2021-01-02] MEDS: Furosemide 20 MG TABLET 60 MG PO (08:34)
[2021-01-02] MEDS: Cholecalciferol (Vitamin D3) 25 MCG TABLET PO (08:34)
[2021-01-02] MEDS: amLODIPine Besylate 10 MG TABLET PO (08:34)
[2021-01-02] MEDS: 0.9 % Sodium Chloride Flush 3 ML SYRINGE IVFLUSH ×2 (08:34→17:40)
[2021-01-02] MEDS: oxyCODONE HCl Immed Release 5 MG TABLET PO ×2 (08:34→13:17)
[2021-01-02] MEDS: FLUoxetine HCl 20 MG CAPSULE PO (08:35)
[2021-01-02] MEDS: atenoloL 25 MG TABLET PO (08:35)
[2021-01-02] MEDS: Ascorbic Acid 500 MG TABLET PO (08:35)
[2021-01-02] MEDS: polyethylene glycoL 3350 17 GM POWD.PACK PO (08:35)
[2021-01-02] MEDS: Gabapentin 300 MG CAPSULE PO ×2 (08:35→13:17)
[2021-01-02] MEDS: Ferrous Sulfate 324 MG TABLET.DR PO (08:35)
[2021-01-02] MEDS: 0.9 % Sodium Chloride Flush 10 ML SYRINGE 5 ML IVFLUSH ×2 (08:36→17:41)
[2021-01-02] MEDS: Ammonium Lactate 12 % Cream 140 GM TUBE 1 APPL TOPICAL (09:30)
--- NOTE | 2021-01-02 11:04 | MHC.CM.PN ---
CM MET W/PT AND DTR/HCP GERALD AT BEDSIDE AT 10:10AM, DTR WAS [facility] TO EMAIL COPY OF COVID VACCINE CARD WHICH WAS SENT TO SNF VIA [facility], GERALD IS AWARE PT WILL BE GOING TO [facility] TODAY AND IS OK W/PLAN. PER HOSPITALIST PT RO D/C AT 5PM AFTER VANCO TROUGH RESULT IS IN. D/C PLAN: [facility] AT 5PM, [facility] FOR BLS TRANSPORT.
[2021-01-02 11:08] VITALS: BP 151/75; PULSE 68; RESP 17; TEMP 36.3; O2SAT 96
[2021-01-02 11:20] LABS: Glucose, Whole Blood 183 mg/dL (60-115)
[2021-01-02] MEDS: Insulin Lispro 100 UNIT/ML 3 ML VIAL SUBCUT ×2 (11:50→17:40)
--- NOTE | 2021-01-02 12:19 | MHC.CLN ---
Addendum entered by Shireen Quinn RD 01/02/21 12:20: FOLLOW UP PATIENT SCHEDULED FOR DISCHARGE TODAY TO FACILITY. CONTINUE DIABETIC 2200 KCAL DIET. CONTINUE SUPPLEMENTS TO PROMOTE WOUND HEALING AND NUTRITION, GLUCERNA 240 ML BID AND ARLENE 1 PACKET BID. Original Note: [facility]
--- NOTE | 2021-01-02 13:33 | MHC.INPTTRAN ---
apply silver alginate to posterior Left leg, cover with non woven gauze and ABD and wrap. Silver alginate to base of toes. Betadine to left medial ulcer and wrap. Triad to stg 2 areas on buttocks. Has been on air loss bed. Is on 2.5L 02, occ cough. lung sounds coarse. Had BM today. On contact precautions for hx MRSA. Smith diet.
[2021-01-02 15:24] VITALS: BP 165/78; PULSE 70; RESP 20; TEMP 36.4; O2SAT 93
[2021-01-02] MEDS: Acetaminophen 325 MG TABLET 650 MG PO (16:05)
[2021-01-02 16:32] LABS: Glucose, Whole Blood 179 mg/dL (60-115)
[2021-01-02 16:43] LABS: Vancomycin Trough 21.4 mcg/mL (10.0-20.0)
--- NOTE | 2021-01-02 17:16 | P.DS_ITS ---
DS: Providers Provider Date of Service: 01/02/21 Date of admission: 12/25/20 16:28 Primary care physician: Mahsa Cr MD Consults: 12/25/20 16:27 Consult to Vascular Surgery Routine Consulting Provider: Siva Kirkpatrick Reason for consultation: hx pad, erythema, edema Has provider been notified: No 12/25/20 17:58 Consult to Wound Care Routine Consulting Provider: Esthela Sahu Reason for consultation: leg wound 12/27/20 08:07 Consult to Infectious Diseases Routine Consulting Provider: Myrna Casper Reason for consultation: nonhealing foot ulcer Has provider been notified: No DS: Diagnosis Discharge Diagnosis (1) Diabetic osteomyelitis: Status: Acute (2) PAD (peripheral artery disease): Status: Acute (3) Type 2 diabetes mellitus: Status: Acute (4) Anemia of chronic disease: Status: Acute (5) 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: Status: Acute (6) Stage II pressure ulcer: Status: Acute DS: Medications Discharge Medications Home Medications: Home Medications Medication Instructions Recorded Confirmed albuterol sulfate 90 mcg/actuation 2 puff PO Q4-6H PRN 03/28/20 12/25/20 aerosol inhaler ascorbic acid (vitamin C) 500 mg 500 mg PO BID 03/28/20 12/25/20 tablet (Vitamin C) atenolol 25 mg tablet 25 mg PO DAILY 03/28/20 12/25/20 cholecalciferol (vitamin D3) 25 25 mcg PO DAILY 03/28/20 12/25/20 mcg (1,000 unit) tablet ferrous sulfate 325 mg (65 mg 325 mg PO BID 03/28/20 12/25/20 iron) tablet fluoxetine 20 mg capsule 20 mg PO DAILY 03/28/20 12/25/20 gabapentin 300 mg capsule 300 mg PO BID@0800,1400 03/28/20 12/25/20 gabapentin 600 mg tablet 600 mg PO BEDTIME 03/28/20 12/25/20 melatonin 5 mg tablet 5 mg PO BEDTIME 03/28/20 12/25/20 metformin 500 mg tablet 500 mg PO DAILY@1700 03/28/20 12/25/20 potassium chloride 20 mEq 20 meq PO BEDTIME 03/28/20 12/25/20 tablet,extended release(part/cryst) risperidone 0.25 mg tablet 0.25 mg PO BEDTIME 03/28/20 12/25/20 tamsulosin 0.4 mg capsule 0.4 mg PO DAILY@1700 03/28/20 12/25/20 furosemide 40 mg tablet 60 mg PO QAM 07/04/20 12/25/20 amlodipine 10 mg tablet 1 tab PO DAILY 12/25/20 12/25/20 chlorhexidine gluconate 4 % 1 appl TOPICAL DAILY 12/25/20 12/25/20 topical liquid (Hibiclens) Previous Rx's Medication Instructions Recorded apixaban 5 mg tablet (Eliquis) 5 mg PO BID #180 tab 09/21/20 atorvastatin 20 mg tablet 20 mg PO QAM #90 tab 09/21/20 ammonium lactate 12 % topical cream 1 appl TOPICAL BID 30 Days #140 g 12/29/20 oxycodone 5 mg tablet 5 mg PO Q4H PRN 3 Days #18 tab 12/29/20 ertapenem 1 gram solution for 1 g IV DAILY 37 Days #37 ea 01/02/21 injection oxycodone 5 mg tablet 5 mg PO Q4H PRN #12 tab 01/02/21 sodium chloride 0.9 % (flush) 5 ml IVFLUSH TID #500 ml 01/02/21 (Normal Saline Flush) vancomycin 750 mg intravenous 750 mg IV DAILY 37 Days #37 ea 01/02/21 solution DS: Summary Hospital Course Hospital Course: from the admission H+P by hospitalist Gracia Camacho NP, 12/25/20: 85-year-old Maltese-speaking male presented to the ER with worsening swelling to his left lower extremity with some drainage to left foot wounds. 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 Patient reports a history of alcohol but is very vague of how much and when was last time he drank. he denies chest pain, shortness of breath nausea vomiting, diarrhea, fever, chills. He reports that over the last few months he has been to go to [place] and [place]. Potassium noted to be elevated at 5.4, creat 1.37, hemoglobin 8.6, hematocrit 29.1, no transaminitis noted. His blood pressure was noted to be elevated with highest reading of 160/100. he received IV Lasix, morphine while in the ER. Admitted for further management and treatment of left lower extremity edema with vascular wounds. Diabetic foot wounds/Vascular wounds/leg edema. No fluid overload noted. Multi ple areas of wounds to his left foot. Hx of PAD and BKA to right leg. Chronic dermatitis to right stump and left lower extremity. Arterial ultrasound of left lower extremity PVD with decreased flow present in SFA. seen evaluated by vascular surgery with no recommendation for surgery will be managed conservatively and follow up with Dr. Kirkpatrick as an outpatient. Venous and arterial US neg for DVT. Also seen and evaluated by ID with rec to continue keflex for 7 days. He was also noted to have normocytic anemia. No signs of bleeding, he was transfused 1 unit prbc. After the transfusion his dyspnea also improved. 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 MRI showed osteomyelitis involving the medial aspect of the 1st metatarsal head. He was started on IV vancomycin and piperacillin/tazobactam and a PICC line was placed. Blood cultures were negative. He was discharged to a SNF on IV vancomycin 750 mg daily and IV ertapenem 1 g daily. Vancomycin trough was 21.4 on the day of discharge and vancomycin dose was decreased from 1000 mg to 750 mg daily. A vancomycin trough should be repeated prior to the dose on 01/05/21 and the dose should be adjusted to achieve a trough of 15-20. He will need 37 more days of IV therapy with both antibiotics with end date of 02/09/21. While on these antibiotics, he should have weekly vancomycin trough, BMP, CBCd, CRP, and ESR monitored and should see the Infectious Disease specialist, Dr Casper, in 2 weeks. Per the brand sales consultant, no vascular intervention was indicated. Hemoglobin improved after 1 unit of pRBCs and anemia was attributed to chronic disease. Otherwise, he was continued on his home medications for hypertension, AF, dyslipidemia, neuropathy, mood disorder, and BPH; diabetes was managed with correction-dose lispro. Time Spent with Patient Time attestation: Total time spent providing and/or coordinating discharge services: 45 Discharge coordination time: Greater than 30 minutes Quality: Stroke Does the patient have a stroke diagnosis?: No Physical Exam Vital Signs: Vital Signs: Last Vital Signs Temp 97.6 F 01/02/21 15:24 Pulse 70 01/02/21 15:24 Resp 20 01/02/21 15:24 BP 165/78 H 01/02/21 15:24 Pulse Ox 93 01/02/21 15:24 Body Mass Index 27.1 Gen: in no acute distress HEENT: sclera anicteric, moist mucus membranes Neck: supple Lungs: clear to auscultation bilaterally Heart: regular rate and rhythm, no murmurs Abd: soft, non-tender, non-distended Ext: no edema, PICC to RUE without signs of infection Skin: large ulcer to base of 2nd toe, multiple smaller ulcers on midfoot and ankle Neuro: alert and oriented x3 Psych: appropriate affect DS: Data Data Completed and Pending Completed studies during hospitalization [Text1]: Laboratory Results WBC 7.3 X10*3/uL (4.8-10.8) 12/31/20 04:53 RBC 3.24 X10*6/uL (4.60-5.80) L 12/31/20 04:53 Hgb 8.6 g/dl (14.0-18.0) L 12/31/20 04:53 Hct 29.0 % (42-52) L 12/31/20 04:53 MCV 89.5 fL (80-98) 12/31/20 04:53 MCH 26.5 pg (27.0-33.0) L 12/31/20 04:53 MCHC 29.7 g/dl (31.0-36.0) L 12/31/20 04:53 RDW 15.1 % (11.0-16.0) 12/31/20 04:53 Plt Count 233 X10*3/uL (160-400) 12/31/20 04:53 MPV 10.0 fL (9.4-12.4) 12/31/20 04:53 Immature Gran % (Auto) 0.4 % (0.0-0.4) 12/26/20 06:28 Neut % (Auto) 72.4 % (45-73) 12/26/20 06:28 Lymph % (Auto) 11.0 % (20-40) L 12/26/20 06:28 [place] % (Auto) 11.9 % (2-11) H 12/26/20 06:28 Eos % (Auto) 3.9 % (0-4) 12/26/20 06:28 Baso % (Auto) 0.4 % (0-2) 12/26/20 06:28 Lymph # (Auto) 1.1 X10*3/uL (1.2-4.9) L 12/26/20 06:28 [place] # (Auto) 1.2 X10*3/uL (0.1-1.2) 12/26/20 06:28 Eos # (Auto) 0.4 X10*3/uL (0.0-0.4) 12/26/20 06:28 Baso # (Auto) 0.0 X10*3/uL (0.0-0.2) 12/26/20 06:28 Abs Immat Gran (auto) 0.04 X10*3/uL (0.00-0.03) H 12/26/20 06:28 Absolute Neuts (auto) 7.2 X10*3/uL (2.0-8.3) 12/26/20 06:28 Absolute Nucleated RBC 0.000 X10*3/uL (0.0-0.012) 12/31/20 04:53 Nucleated RBC % (auto) 0.0 /100WBC (0.0-0.2) 12/31/20 04:53 ESR 111 MM/HR (0-15) H 12/27/20 08:14 Sodium 141 mmol/L (135-145) 01/01/21 06:17 Potassium 3.7 mmol/L (3.3-5.1) D 01/01/21 06:17 Chloride 104 mmol/L (96-108) 01/01/21 06:17 Carbon Dioxide 29 mmol/L (22-29) 01/01/21 06:17 Anion Gap 12 (12-20) 01/01/21 06:17 BUN 22 mg/dL (9-16) H 01/01/21 06:17 Creatinine 0.89 mg/dL (0.5-1.4) 01/01/21 06:17 Estim Creat Clear Calc 67.8 01/01/21 06:17 Estimated GFR > 60 01/01/21 06:17 POC Glucose 179 mg/dL (60-115) H 01/02/21 16:28 Random Glucose 118 mg/dL (60-115) H 01/01/21 06:17 Calcium 8.6 mg/dL (8.4-10.2) 01/01/21 06:17 Magnesium 2.0 mg/dL (1.6-2.6) 12/31/20 04:53 Iron 19 mcg/dL (45-160) L 12/27/20 08:14 TIBC 277 mcg/dL (228-428) 12/27/20 08:14 % Saturation 7 % (15-50) L 12/27/20 08:14 Unsat Iron Binding 258 ug/dL 12/27/20 08:14 Ferritin 49 ng/mL (20-250) 12/27/20 08:14 Total Bilirubin 0.4 mg/dL (0.0-1.0) 12/25/20 12:50 Direct Bilirubin 0.2 mg/dL (0.0-0.5) 12/25/20 12:50 AST 22 U/L (5-37) D 12/25/20 12:50 ALT 12 U/L (0-40) 12/25/20 12:50 Alkaline Phosphatase 72 U/L (39-117) 12/25/20 12:50 Troponin I High Sens 6.2 ng/L (<3.5-35.0) 12/25/20 12:50 C-Reactive Protein 13.70 mg/dL (< or = 0.50) H 12/31/20 04:53 B-Natriuretic Peptide 275 pg/mL (<100) H 12/31/20 04:53 Total Protein 8.1 g/dL (6.5-8.0) H 12/25/20 12:50 Albumin 3.8 g/dL (3.5-5.0) 12/25/20 12:50 Vancomycin Trough 21.4 mcg/mL (10.0-20.0) H 01/02/21 15:48 COVID-19 (ELPIDIO) Negative (Negative) 01/01/21 14:06 COVID-19 Clin Com See Note 01/01/21 14:06 Blood Type O Positive 12/27/20 11:56 Antibody Screen NEGATIVE 12/27/20 11:56 Crossmatch See Detail 12/27/20 11:56 Impressions Venous Duplex 12/25/20 16:39 IMPRESSION: Limited examination as several veins portions of the veins were not visualized No thrombus seen in the visualized veins. Consider follow-up imaging if symptoms persist into exclude propagation from a nonvisualized calf vein. Duplex Scan Lower Extremity Artery 12/25/20 18:07 IMPRESSION: Evidence of peripheral vascular disease with decreased flow present in the SFA and monophasic flow seen in the tibial vessels. Foot MRI 12/28/20 18:37 IMPRESSION: * A deep soft tissue ulcer is observed medial to the 1st metatarsal head. * Findings are consistent with osteomyelitis involving the medial aspect of the 1st metatarsal head. * No soft tissue abscess. * Diffuse atrophy and fatty replacement of muscles of the foot could be the sequela of chronic disuse of the extremity and/or denervation change. Chest X-Ray 12/31/20 13:26 IMPRESSION: 1. Right PICC tip at distal superior vena cava. 2. Suspect subtle groundglass opacities right upper lobe. No effusion. Discharge Plan Discharge Anticipated Discharge Date/Time: 12/29/20 10:24 Patient Disposition: Xfer Inpatient Rehab Fac 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 Referrals: [facility] [Outside] - 1 Day (STR and IV abx ) Myrna Casper MD [Physician] - 2 Weeks Mahsa Cr MD [Primary Care Provider] - 1 Week Discharge Medications: New sodium chloride 0.9 % (flush) [Normal Saline Flush] Syringe 5 ml IVFLUSH TID Qty: 500 RF: 0 ertapenem 1 gram recon soln 1 g IV DAILY 37 Days Qty: 37 RF: 0 Continued apixaban [Eliquis] 5 mg tablet 5 mg PO BID Qty: 180 RF: 3 atorvastatin 20 mg tablet 20 mg PO QAM Qty: 90 RF: 3 metformin 500 mg tablet 500 mg PO DAILY@1700 RF: 0 risperidone 0.25 mg tablet 0.25 mg PO BEDTIME RF: 0 potassium chloride 20 mEq tablet,ER particles/crystals 20 meq PO BEDTIME RF: 0 ascorbic acid (vitamin C) [Vitamin C] 500 mg tablet 500 mg PO BID RF: 0 tamsulosin 0.4 mg capsule 0.4 mg PO DAILY@1700 RF: 0 ferrous sulfate 325 mg (65 mg iron) tablet 325 mg PO BID RF: 0 albuterol sulfate 90 mcg/actuation HFA aerosol inhaler 2 puff PO Q4H PRN (Reason: Shortness Of Breath) RF: 0 cholecalciferol (vitamin D3) 25 mcg (1,000 unit) tablet 25 mcg PO DAILY RF: 0 melatonin 5 mg tablet 5 mg PO BEDTIME RF: 0 amlodipine 10 mg tablet 1 tab PO DAILY RF: 0 chlorhexidine gluconate [Hibiclens] 4 % liquid 1 appl topical DAILY RF: 0 Discontinued tramadol 50 mg tablet 1 tab PO TID PRN (Reason: Pain (Scale Score 4-6)) RF: 0 No Action vancomycin 500 mg Recon Soln 500 mg IV DAILY RF: 0 fluoxetine 10 mg Capsule 10 mg PO DAILY Qty: 30 RF: 0 furosemide 40 mg Tablet 40 mg PO BID@0900,1800 Qty: 60 RF: 0 acetaminophen [Mapap (acetaminophen)] 325 mg Tablet 650 mg PO Q6H PRN (Reason: MILD PAIN OR TEMP) RF: 0 gabapentin 600 mg tablet 1 tab PO BEDTIME RF: 0 ammonium lactate 12 % Lotion 1 appl TOPICAL BID RF: 0 atenolol 25 mg tablet 1 tab PO DAILY RF: 0 gabapentin 300 mg capsule 300 mg PO BID RF: 0 furosemide 20 mg tablet 1 tab PO DAILY RF: 0 fluoxetine 20 mg capsule 1 cap PO DAILY RF: 0 oxycodone 5 mg Tablet 5 mg PO Q4H PRN (Reason: Pain (Scale Score 4-6)) RF: 0 Discharge Orders: Discharge Order (Routine); Ordered 01/02/21 Ordered By: Tricia Parsons Diet: advance to usual diet and diabetic diet Activity on Discharge: As tolerated Stand Alone Forms: Patient Portal Discharge page Other Ambulatory Orders: Basic Metabolic Panel (Routine) Timeframe: 20210105 Facility: [facility] - Location: Laboratory Ordered By: Tricia Parsons Complete Blood Count Auto Diff (Routine) Timeframe: 20210105 Facility: [facility] - Location: Laboratory Ordered By: Tricia Parsons C Reactive Protein (Routine) Timeframe: 20210105 Facility: [facility] - Location: Laboratory Ordered By: Tricia Parsons Erythrocyte Sedimentation Rate (Routine) Timeframe: 20210105 Facility: [facility] - Location: Laboratory Ordered By: Tricia Parsons Vancomycin Trough (Routine) Timeframe: 20210105 Facility: [facility] - Location: Laboratory Ordered By: Tricia Parsons Care Plan Goals: Resolution of osteomyelitis Health Concerns: Diabetic osteomyelitis Plan of Treatment: IV antibiotics via PICC line for 37 more days (end date 02/09/21) - vancomycin 750 mg daily - ertapenem 1 gram daily weekly labs beginning on 01/05/21 and ending on 02/09/21: - vancomycin trough (goal trough is 15-20) - CBC with differential - basic metabolic panel - ESR - C-reactive protein follow up with Dr Shara Casper, Infectious Disease, 2 weeks WOUND CARE INSTRUCTIONS (daily): Apply silver alginate to posterior left leg and to base of left dodrsal great toe. Apply betadine to ulcer on medial left foot. Cover all with gauze then roll gauze. Protector boot to left foot. Apply Triad to stage 2 areas on buttocks and maintain on air loss bed. Assessment: See discharge summary Patient Instructions: PICC (Peripherally Inserted Central Catheter) (DC) Discharge Date/Time: 01/02/21 21:03
[2021-01-02] MEDS: Ertapenem Sodium 1 GM in 0.9 % Sodium Chloride 50 ML IV (17:39)
[2021-01-02] MEDS: vancomycin HCL 750 MG in 0.9 % Sodium Chloride 250 ML 265 MG IV (17:54)
[2021-01-02] MEDS: Tamsulosin HCL 0.4 MG CAPSULE PO (17:54)
[2021-01-02 18:56] VITALS: BP 166/70; PULSE 66; RESP 18; TEMP 36.4; O2SAT 95
[2021-01-02 20:29] LABS: Glucose, Whole Blood 133 mg/dL (60-115)
== END 2021-01-02 21:03 | DRG 638 ==
LOC: HO.ED 14:16 → HO.EDOVER 16:41 → HO.S3 20:29
PROVIDERS: Family Medicine; Internal Medicine; Physician Assistant Medical; Admitting Provider Nurse Practitioner Acute Care; Emergency Provider Emergency Medicine; PCP Family Medicine; Visit Provider Family Medicine
DX: E11.69 Type 2 diabetes mellitus with other specified complication (principal); M86.9 Osteomyelitis, unspecified; L97.526 Non-pressure chronic ulcer of other part of left foot with bone involvement without evidence of necrosis; I48.91 Unspecified atrial fibrillation; E87.5 Hyperkalemia; I25.10 Atherosclerotic heart disease of native coronary artery without angina pectoris; I10 Essential (primary) hypertension; N40.0 Benign prostatic hyperplasia without lower urinary tract symptoms; E11.42 Type 2 diabetes mellitus with diabetic polyneuropathy; E87.6 Hypokalemia; Z89.511 Acquired absence of right leg below knee; F39 Unspecified mood [affective] disorder; E11.621 Type 2 diabetes mellitus with foot ulcer; Z20.822 Contact with and (suspected) exposure to COVID-19; Z95.1 Presence of aortocoronary bypass graft; E11.51 Type 2 diabetes mellitus with diabetic peripheral angiopathy without gangrene; Z79.01 Long term (current) use of anticoagulants; Z79.84 Long term (current) use of oral hypoglycemic drugs; Z79.899 Other long term (current) drug therapy
CPT/HCPCS: 36415; 36573; 71045; 73720; 80048; 80076; 80202; 82565; 82728; 82947; 83540; 83735; 83880; 84484; 85025; 85027; 85652; 86140; 86850; 86900; 86901; 86923; 87635; 93005; 93926; 93971; 97163; 97530; 99285; A9585; C1751; J0690; J1170; J1335; J1940; J2270; J2543; J3370; P9016

== ENCOUNTER → 2021-01-15 12:58 | Outpatient (BNVA) | payer MEDICARE, SELFPAY | PROVIDERS: Visit Provider Internal Medicine | DX: R60.0 Localized edema (principal); E11.69 Type 2 diabetes mellitus with other specified complication; M86.9 Osteomyelitis, unspecified; L97.509 Non-pressure chronic ulcer of other part of unspecified foot with unspecified severity; Z88.1 Allergy status to other antibiotic agents; Z91.030 Bee allergy status; Z91.013 Allergy to seafood | CPT/HCPCS: 99212 ==

== ENCOUNTER 2021-01-19 23:08 | Inpatient (IN) | payer MEDICARE, SELFPAY ==
--- NOTE | ~2021-01-19 | XR_ITS ---
EXAMINATION: XR CHEST CLINICAL INFORMATION: Dyspnea COMPARISON: 12/31/2020 TECHNIQUE: Frontal view of the chest was obtained. FINDINGS: Cardiac leads overlie the chest. Right-sided PICC line terminates over the mid SVC. The lungs are well expanded. Prominent interstitial markings are noted with Nitin B-lines. No pleural effusion. No pneumothorax. The cardiomediastinal silhouette is unchanged, with a calcified aorta. XR/XR chest 1V IMPRESSION: Prominent interstitial markings with Nitin B-lines is most consistent with interstitial edema.
--- NOTE | ~2021-01-19 | CT_ITS ---
EXAMINATION: CT ANGIOGRAM OF THE CHEST WITH AND WITHOUT CONTRAST (CT PULMONARY ANGIOGRAM FOR PE) CLINICAL INFORMATION: Reason for Exam r/p PE COMPARISON: None TECHNIQUE: Prior to contrast administration, noncontrast localization images were obtained. Subsequently, multidetector volumetric imaging was performed from the thoracic inlet to below the diaphragms following the administration of 65 mL Omnipaque 350 intravenous contrast. No contrast reaction reported Sagittal, coronal, and MIP oblique sagittal reformatted images were obtained on the CT workstation, uploaded to PACS, and reviewed. This CT examination was performed using dose optimization techniques as appropriate, variously including the following: *Automated exposure control *Adjustment of mA and/or kV according to patient size (this includes techniques or standardized protocols for targeted exams where dose is matched to indication/reason for exam; i.e. extremities or head) *Use of iterative reconstruction technique Total exam dose-length product 534 mGy-cm FINDINGS: QUALITY OF STUDY/CONTRAST BOLUS: Satisfactory. PULMONARY ARTERIES: No central or segmental pulmonary emboli. THORACIC AORTA: No aneurysm or dissection. LUNG: The central airways are patent. Small bilateral pleural effusions. Bibasilar atelectasis. No dense consolidation. Scattered groundglass opacity. No pneumothorax. MEDIASTINUM: Enlarged heart size. No pericardial effusion. Prominent mediastinal lymph nodes are noted. For instance there is a pretracheal node measuring 1 cm short axis on series 6 image 20.. No evidence of septal bowing or right heart strain. CHEST WALL/AXILLA: No axillary or internal mammary lymphadenopathy. Right PICC line in place terminating in the SVC. OSSEOUS STRUCTURES: No acute or suspicious osseous abnormality. Mild degenerative changes of the spine. UPPER ABDOMEN: Cholelithiasis. No reflux of contrast into the hepatic veins to suggest elevated right heart pressures. CT/CT angio chest PE protocol IMPRESSION: 1. No pulmonary embolism. 2. Small bilateral pleural effusions. Groundglass opacities in the lungs are nonspecific but could be associated with edema versus infectious/inflammatory process. 3. Prominent mediastinal lymph nodes, likely reactive. VTE: negative
--- NOTE | ~2021-01-19 | CT_ITS ---
EXAMINATION: CT HEAD WITHOUT CONTRAST CLINICAL INFORMATION: Altered mental status COMPARISON: 10/27/2013 TECHNIQUE: Contiguous axial imaging was performed from the skull base to vertex without intravenous contrast. This CT examination was performed using dose optimization techniques as appropriate, variously including the following: * Automated exposure control * Adjustment of mA and/or kV according to patient size (this includes techniques or standardized protocols for targeted exams where dose is matched to indication/reason for exam; i.e. extremities or head) Use of iterative reconstruction technique DLP: 788 mGy-cm. FINDINGS: There is no evidence of acute intracranial hemorrhage or territorial infarction. No abnormal mass effect or midline shift is seen. Chronic left frontal lobe infarct. Solorio to white matter differentiation is otherwise well preserved. No extra-axial fluid collections are identified. No hydrocephalus. Proportional prominence of the ventricles and sulcal spaces is consistent with mild volume loss. Patchy periventricular and deep white matter hypoattenuation is consistent with mild small vessel ischemic changes. The osseous structures and soft tissues are normal. The mastoid air cells and visualized portions of the paranasal sinuses are well aerated. CT/CT head/brain wo con IMPRESSION: No acute intracranial pathology. 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
--- NOTE | 2021-01-19 23:08 | ECG_ITS ---
Test Reason : SOB Blood Pressure : / mmHG Vent. Rate : 080 BPM Atrial Rate : 079 BPM P-R Int : 000 ms QRS Dur : 100 ms QT Int : 410 ms P-R-T Axes : 000 049 031 degrees QTc Int : 472 ms Atrial fibrillation Incomplete right bundle branch block Abnormal ECG When compared with ECG of 25-DEC-2020 12:49, T wave amplitude has decreased in Lateral leads Referred By: Generic ED Physician Electronically Signed By:CORINA WALKER
[2021-01-19 23:21] VITALS: BP 134/51; PULSE 74; RESP 23; TEMP 36.6; O2SAT 100; BMI 31.3
[2021-01-19 23:39] LABS: MANUAL DIFF FLAG NO
[2021-01-19 23:44] LABS: Basophils Percent Auto 0.3 % (0-2); Eosinophils Percent Auto 0.3 % (0-4); Hemoglobin 9.3 g/dl (14.0-18.0); Imm Gran Abs Auto 0.03 X10*3/uL (0.00-0.03); Imm Gran Pct Auto 0.3 % (0.0-0.4); Lymphocytes Absolute Auto 0.4 X10*3/uL (1.2-4.9); Lymphocytes Percent Auto 4.3 % (20-40); Mean Corpuscular Hemoglobin 25.9 pg (27.0-33.0); Mean Corpuscular Volume 86.4 fL (80-98); Mean Platelet Volume 9.7 fL (9.4-12.4); Monocytes Absolute Auto 0.6 X10*3/uL (0.1-1.2); Monocytes Percent Auto 6.4 % (2-11); Neutrophils Absolute Auto 8.2 X10*3/uL (2.0-8.3); Neutrophils Percent Auto 88.4 % (45-73); Platelet Count 261 X10*3/uL (160-400); Red Blood Count 3.59 X10*6/uL (4.60-5.80); Red Cell Distribution Width 16.3 % (11.0-16.0); White Blood Count 9.3 X10*3/uL (4.8-10.8)
[2021-01-19 23:48] LABS: VBG Base Excess 1.2 mmol/L; VBG HCO3 28 mmol/L (22-26); VBG pCO2 53 mmHg; VBG pH 7.32 (7.32-7.43); VBG pO2 63 mmHg
[2021-01-19 23:49] VITALS: O2SAT 86
[2021-01-19 23:50] VITALS: O2SAT 89; O2SAT 90
[2021-01-19 23:50] LABS: INTERNATIONAL NORM RATIO 1.6 (0.9-1.1); Prothrombin Time 18.3 SEC (9.9-13.0)
[2021-01-19 23:52] LABS: Partial Thromboplastin Time 50.6 SEC (24.1-38.0)
[2021-01-19 23:56] VITALS: BP 138/59; PULSE 72; RESP 21; TEMP 36.3; O2SAT 78
[2021-01-19 23:56] LABS: Venous Blood Gas Refer to POC result
[2021-01-20] VITALS (15 sets, daily range): BP systolic 106–167; BP diastolic 57–77; PULSE 54–82; RESP 18–30; TEMP 35.9–36.6; O2SAT 91–100; BMI 29.8
[2021-01-20] LABS: Appearance Urine CLEAR; Color Urine YELLOW; Glucose Urine UA NEG (NEG); Leukocyte Esterase Urine NEG (NEG); Nitrite Urine NEG (NEG); PH 5.5 (5.0-8.0); Urine Blood NEG (NEG); Urine Ketones NEG (NEG); Urine Protein TRACE MG/DL (NEG-TRACE)
[2021-01-20 00:04] LABS: Lactic Acid 0.8 mmol/L (0.5-2.0)
[2021-01-20 00:08] LABS: Anion Gap 15 (12-20); Blood Urea Nitrogen 25 mg/dL (9-16); Calcium 9.1 mg/dL (8.4-10.2); Carbon Dioxide 29 mmol/L (22-29); Chloride 100 mmol/L (96-108); Creatinine Clr Calc Pharmacy 51.6; Estimated Glomerular Filt Rate 59; Glucose Random 146 mg/dL (60-115); Potassium 4.5 mmol/L (3.3-5.1); Sodium 139 mmol/L (135-145)
--- NOTE | 2021-01-20 00:08 | PC.NURSE ---
PT ON NVENTI MASK, HIGHEST SPO2 IS 90%. PT PULLED MASK OFF WHEN STAFF NOT IN ROOM, SPO2 DROPPED TO 78%.
[2021-01-20 00:12] LABS: B Type Natriuretic Peptide 314 pg/mL (<100); Troponin-I High Sensitivity 10.9 ng/L (<3.5-35.0)
[2021-01-20 00:27] LABS: Influenza A PCR NEGATIVE (Negative); Influenza B PCR NEGATIVE (Negative); Resp Syncy Virus RNA Qual PCR NEGATIVE (Negative); SARS COV2 PCR INHOUSE NEGATIVE (Negative)
--- NOTE | 2021-01-20 00:28 | PC.NURSE ---
rt in room, plan to place pt on cpap.
--- NOTE | 2021-01-20 00:44 | ED.SOB ---
HPI - SOB/Dyspnea General Chief Complaint: Dyspnea Stated Complaint: SOB Time Seen by Provider: 01/20/21 00:09 Source: EMS Limitations: altered mental status and physical limitation History of Present Illness HPI Narrative: Patient is brought to the emergency room by EMS from a senior living. This evening, patient was found by the and respiratory distress, hypoxic, oxygen in the mid 40s. 911 was called, patient was placed on a non-rebreather, oxygen went up to the mid 90s. Patient's speech is incomprehensible, patient altered. Of note, patient was discharged from this facility on January 02, patient was here for osteomyelitis, he was treated with vancomycin Zosyn, patient has now a PICC line and is being treated with vancomycin and ertapenem MD elicited complaint: shortness of breath Related Data Home Medications Medication Instructions Recorded Confirmed albuterol sulfate 90 mcg/actuation 2 puff PO Q4-6H PRN 03/28/20 01/20/21 aerosol inhaler ascorbic acid (vitamin C) 500 mg 500 mg PO BID 03/28/20 01/20/21 tablet (Vitamin C) atenolol 25 mg tablet 25 mg PO DAILY 03/28/20 01/20/21 cholecalciferol (vitamin D3) 25 25 mcg PO DAILY 03/28/20 01/20/21 mcg (1,000 unit) tablet ferrous sulfate 325 mg (65 mg 325 mg PO BID 03/28/20 01/20/21 iron) tablet fluoxetine 20 mg capsule 20 mg PO DAILY 03/28/20 01/20/21 gabapentin 300 mg capsule 300 mg PO BID@0800,1400 03/28/20 01/20/21 gabapentin 600 mg tablet 600 mg PO BEDTIME 03/28/20 01/20/21 melatonin 5 mg tablet 5 mg PO BEDTIME 03/28/20 01/20/21 metformin 500 mg tablet 500 mg PO DAILY@1700 03/28/20 01/20/21 potassium chloride 20 mEq 20 meq PO BEDTIME 03/28/20 01/20/21 tablet,extended release(part/cryst) risperidone 0.25 mg tablet 0.25 mg PO BEDTIME 03/28/20 01/20/21 tamsulosin 0.4 mg capsule 0.4 mg PO DAILY@1700 03/28/20 01/20/21 furosemide 40 mg tablet 60 mg PO QAM 07/04/20 01/20/21 amlodipine 10 mg tablet 1 tab PO DAILY 12/25/20 01/20/21 chlorhexidine gluconate 4 % 1 appl TOPICAL DAILY 12/25/20 01/20/21 topical liquid (Hibiclens) vancomycin 500 mg intravenous 500 mg IV DAILY 01/20/21 01/20/21 solution Previous Rx's Medication Instructions Recorded apixaban 5 mg tablet (Eliquis) 5 mg PO BID #180 tab 09/21/20 atorvastatin 20 mg tablet 20 mg PO QAM #90 tab 09/21/20 ammonium lactate 12 % topical cream 1 appl TOPICAL BID 30 Days #140 g 12/29/20 oxycodone 5 mg tablet 5 mg PO Q4H PRN 3 Days #18 tab 12/29/20 ertapenem 1 gram solution for 1 g IV DAILY 37 Days #37 ea 01/02/21 injection sodium chloride 0.9 % (flush) 5 ml IVFLUSH TID #500 ml 01/02/21 (Normal Saline Flush) Allergies Allergy/AdvReac Type Severity Reaction Status Date / Time bee pollen [BEE STINGS] Allergy Severe ANAPHYLAXIS Verified 07/04/20 13:06 doxycycline [DOXYCYCLINE] Allergy Unknown ? ALLERGY Verified 07/04/20 13:06 PER [employer] [place] Allergy Mild ITCHING Uncoded 03/28/20 19:48 bee venom Allergy Unknown unspecified Uncoded 03/28/20 19:48 sardines Allergy Unknown itching Uncoded 03/28/20 19:48 Review of Systems Review of Systems: Yes Unobtainable due to mental condition PMFSH Past Medical History Medical History Afib Alcoholic cardiomyopathy BPH (benign prostatic hyperplasia) COPD (chronic obstructive pulmonary disease) Diabetes Diabetic osteomyelitis Foot ulcer Hyperlipidemia PAD (peripheral artery disease) Prostate cancer Surgical History H/O abdominal surgery H/O angioplasty H/O cataract extraction Hx of BKA Family History Family History Mother No problems noted. Father No problems noted. Son No problems noted. Son No problems noted. Son No problems noted. Son No problems noted. Daughter No problems noted. Daughter No problems noted. Daughter No problems noted. Social History Social History Household Members: None Housing: Apartment Do you presently have visiting nurse or other home services: Yes Alcohol intake: never Patient Tobacco Use Status: Never used Tobacco Advance Directives: Yes Advance Directives on File: Yes Advance Directives Date on File: 03/28/20 service: No Current occupational status: retired Physical Exam Vital Signs: Vital Signs: Last Vital Signs Temp 97 F 01/20/21 00:55 Pulse 82 01/20/21 00:55 Resp 24 H 01/20/21 00:55 BP 138/59 L 01/20/21 00:55 Pulse Ox 95 01/20/21 00:55 Oxygen Flow Rate 15 01/19/21 23:21 Body Mass Index 31.3 Const: Other: Appearance: Alert. Encephalopathic. Eyes: Pupils equal, round and reactive to light. ENT: Pharynx normal. Neck: Normal inspection. Neck supple. No lymph nodes noted. No crepitus CVS: Normal heart rate and rhythm. Pulses normal. Normal S1 and S2 Respiratory: Decreased breath sounds, bilateral crackles, no wheezing, positive rales Abdomen: Soft , seems nontender. No rigidity. No distention Skin: Skin warm and dry. Extremities: +1 pitting edema on the left leg, patient has a right BKA, left foot with ulcers healing in the dorsum and in the heel. Neuro: Cranial nerves grossly intact, moves all extremities, difficult to assess, patient not following the directions Course Course Course Narrative: When patient came to emergency room, initially he came on a non-rebreather mask, oxygen saturation was 100%. We tried switching the patient to 6 L nasal cannula, patient's oxygen saturation decreased to the high 70s, and re-sutured patient to Venti mask, oxygen saturation remained in the low 80s, then we switched the patient to a BiPAP, now oxygen saturation 93%, tolerating BiPAP well. Patient has history of prostate cancer, patient is bedbound. Although patient is on Eliquis, we will go ahead and scan him to rule PE CT for PE pending. I discussed the patient with Dr. Marshall, patient returns from the CT scan, he will be weaned off BiPAP, patient was previously doing well on a non-rebreather. Patient being admitted, likely pneumonia. will f/u the CT scan and inform Dr. Marshall Patient was given 1 dose of Levaquin, patient's blood pressure in the 130s, no fever, at this time sepsis not suspected. MDM - SOB/Dyspnea Lab Data Result diagrams: 01/19/21 23:31 01/19/21 23:31 Labs: Lab Results 01/19/21 01/19/21 01/19/21 Range/Units 23:31 23:31 23:31 WBC 9.3 (4.8-10.8) X10*3/uL RBC 3.59 L (4.60-5.80) X10*6/uL Hgb 9.3 L (14.0-18.0) g/dl Hct 31.0 L (42-52) % MCV 86.4 (80-98) fL MCH 25.9 L (27.0-33.0) pg MCHC 30.0 L (31.0-36.0) g/dl RDW 16.3 H (11.0-16.0) % Plt Count 261 (160-400) X10*3/uL MPV 9.7 (9.4-12.4) fL Immature Gran % (Auto) 0.3 (0.0-0.4) % Neut % (Auto) 88.4 H (45-73) % Lymph % (Auto) 4.3 L (20-40) % [place] % (Auto) 6.4 (2-11) % Eos % (Auto) 0.3 (0-4) % Baso % (Auto) 0.3 (0-2) % Lymph # (Auto) 0.4 L (1.2-4.9) X10*3/uL [place] # (Auto) 0.6 (0.1-1.2) X10*3/uL Eos # (Auto) 0.0 (0.0-0.4) X10*3/uL Baso # (Auto) 0.0 (0.0-0.2) X10*3/uL Abs Immat Gran (auto) 0.03 (0.00-0.03) X10*3/uL Absolute Neuts (auto) 8.2 (2.0-8.3) X10*3/uL Absolute Nucleated RBC 0.000 (0.0-0.012) X10*3/uL Nucleated RBC % (auto) 0.0 (0.0-0.2) /100WBC PT (9.9-13.0) SEC INR (0.9-1.1) APTT (24.1-38.0) SEC VBG pH (7.32-7.43) VBG pCO2 mmHg VBG pO2 mmHg VBG HCO3 (22-26) mmol/L VBG O2 Saturation % VBG Base Excess mmol/L Sodium 139 (135-145) mmol/L Potassium 4.5 D (3.3-5.1) mmol/L Chloride 100 (96-108) mmol/L Carbon Dioxide 29 (22-29) mmol/L Anion Gap 15 (12-20) BUN 25 H (9-16) mg/dL Creatinine 1.18 (0.5-1.4) mg/dL Estim Creat Clear Calc 51.6 Estimated GFR 59 Random Glucose 146 H (60-115) mg/dL Lactic Acid (0.5-2.0) mmol/L Calcium 9.1 (8.4-10.2) mg/dL Troponin I High Sens 10.9 D (<3.5-35.0) ng/L B-Natriuretic Peptide 314 H (<100) pg/mL Urine Color Urine Appearance Urine pH (5.0-8.0) Ur Specific [place] (1.005-1.025) Urine Protein (NEG-TRACE) MG/DL Urine Glucose (UA) (NEG) MG/DL Urine Ketones (NEG) MG/DL Urine Blood (NEG) Urine Nitrite (NEG) Ur Leukocyte Esterase (NEG) Coronavirus (PCR) (Negative) Influenza Type A (PCR) (Negative) Influenza Type B (PCR) (Negative) RSV RNA Qual (PCR) (Negative) 01/19/21 01/19/21 01/19/21 Range/Units 23:31 23:31 23:31 WBC (4.8-10.8) X10*3/uL RBC (4.60-5.80) X10*6/uL Hgb (14.0-18.0) g/dl Hct (42-52) % MCV (80-98) fL MCH (27.0-33.0) pg MCHC (31.0-36.0) g/dl RDW (11.0-16.0) % Plt Count (160-400) X10*3/uL MPV (9.4-12.4) fL Immature Gran % (Auto) (0.0-0.4) % Neut % (Auto) (45-73) % Lymph % (Auto) (20-40) % [place] % (Auto) (2-11) % Eos % (Auto) (0-4) % Baso % (Auto) (0-2) % Lymph # (Auto) (1.2-4.9) X10*3/uL [place] # (Auto) (0.1-1.2) X10*3/uL Eos # (Auto) (0.0-0.4) X10*3/uL Baso # (Auto) (0.0-0.2) X10*3/uL Abs Immat Gran (auto) (0.00-0.03) X10*3/uL Absolute Neuts (auto) (2.0-8.3) X10*3/uL Absolute Nucleated RBC (0.0-0.012) X10*3/uL Nucleated RBC % (auto) (0.0-0.2) /100WBC PT 18.3 H (9.9-13.0) SEC INR 1.6 H (0.9-1.1) APTT 50.6 H (24.1-38.0) SEC VBG pH (7.32-7.43) VBG pCO2 mmHg VBG pO2 mmHg VBG HCO3 (22-26) mmol/L VBG O2 Saturation % VBG Base Excess mmol/L Sodium (135-145) mmol/L Potassium (3.3-5.1) mmol/L Chloride (96-108) mmol/L Carbon Dioxide (22-29) mmol/L Anion Gap (12-20) BUN (9-16) mg/dL Creatinine (0.5-1.4) mg/dL Estim Creat Clear Calc Estimated GFR Random Glucose (60-115) mg/dL Lactic Acid 0.8 (0.5-2.0) mmol/L Calcium (8.4-10.2) mg/dL Troponin I High Sens (<3.5-35.0) ng/L B-Natriuretic Peptide (<100) pg/mL Urine Color Urine Appearance Urine pH (5.0-8.0) Ur Specific [place] (1.005-1.025) Urine Protein (NEG-TRACE) MG/DL Urine Glucose (UA) (NEG) MG/DL Urine Ketones (NEG) MG/DL Urine Blood (NEG) Urine Nitrite (NEG) Ur Leukocyte Esterase (NEG) Coronavirus (PCR) NEGATIVE (Negative) Influenza Type A (PCR) NEGATIVE (Negative) Influenza Type B (PCR) NEGATIVE (Negative) RSV RNA Qual (PCR) NEGATIVE (Negative) 01/19/21 01/19/21 Range/Units 23:31 23:35 WBC (4.8-10.8) X10*3/uL RBC (4.60-5.80) X10*6/uL Hgb (14.0-18.0) g/dl Hct (42-52) % MCV (80-98) fL MCH (27.0-33.0) pg MCHC (31.0-36.0) g/dl RDW (11.0-16.0) % Plt Count (160-400) X10*3/uL MPV (9.4-12.4) fL Immature Gran % (Auto) (0.0-0.4) % Neut % (Auto) (45-73) % Lymph % (Auto) (20-40) % [place] % (Auto) (2-11) % Eos % (Auto) (0-4) % Baso % (Auto) (0-2) % Lymph # (Auto) (1.2-4.9) X10*3/uL [place] # (Auto) (0.1-1.2) X10*3/uL Eos # (Auto) (0.0-0.4) X10*3/uL Baso # (Auto) (0.0-0.2) X10*3/uL Abs Immat Gran (auto) (0.00-0.03) X10*3/uL Absolute Neuts (auto) (2.0-8.3) X10*3/uL Absolute Nucleated RBC (0.0-0.012) X10*3/uL Nucleated RBC % (auto) (0.0-0.2) /100WBC PT (9.9-13.0) SEC INR (0.9-1.1) APTT (24.1-38.0) SEC VBG pH 7.32 (7.32-7.43) VBG pCO2 53 mmHg VBG pO2 63 mmHg VBG HCO3 28 H (22-26) mmol/L VBG O2 Saturation 85.0 % VBG Base Excess 1.2 mmol/L Sodium (135-145) mmol/L Potassium (3.3-5.1) mmol/L Chloride (96-108) mmol/L Carbon Dioxide (22-29) mmol/L Anion Gap (12-20) BUN (9-16) mg/dL Creatinine (0.5-1.4) mg/dL Estim Creat Clear Calc Estimated GFR Random Glucose (60-115) mg/dL Lactic Acid (0.5-2.0) mmol/L Calcium (8.4-10.2) mg/dL Troponin I High Sens (<3.5-35.0) ng/L B-Natriuretic Peptide (<100) pg/mL Urine Color YELLOW Urine Appearance CLEAR Urine pH 5.5 (5.0-8.0) Ur Specific [place] 1.020 (1.005-1.025) Urine Protein TRACE (NEG-TRACE) MG/DL Urine Glucose (UA) NEG (NEG) MG/DL Urine Ketones NEG (NEG) MG/DL Urine Blood NEG (NEG) Urine Nitrite NEG (NEG) Ur Leukocyte Esterase NEG (NEG) Coronavirus (PCR) (Negative) Influenza Type A (PCR) (Negative) Influenza Type B (PCR) (Negative) RSV RNA Qual (PCR) (Negative) Critical Care Time Critical Care Time Total Critical Care Time: 90 Attestation: 90 minutes were spent with the patient in direct care and stabilization Discharge Plan Discharge Clinical Impression: Pneumonia, Respiratory failure with hypoxia Patient Disposition: Admitted As Inpatient Prescriptions: No Action apixaban [Eliquis] 5 mg tablet 5 mg PO BID Qty: 180 RF: 3 atorvastatin 20 mg tablet 20 mg PO QAM Qty: 90 RF: 3 metformin 500 mg tablet 500 mg PO DAILY@1700 RF: 0 gabapentin 600 mg tablet 600 mg PO BEDTIME RF: 0 atenolol 25 mg tablet 25 mg PO DAILY RF: 0 risperidone 0.25 mg tablet 0.25 mg PO BEDTIME RF: 0 potassium chloride 20 mEq tablet,ER particles/crystals 20 meq PO BEDTIME RF: 0 ascorbic acid (vitamin C) [Vitamin C] 500 mg tablet 500 mg PO BID RF: 0 tamsulosin 0.4 mg capsule 0.4 mg PO DAILY@1700 RF: 0 ferrous sulfate 325 mg (65 mg iron) tablet 325 mg PO BID RF: 0 gabapentin 300 mg capsule 300 mg PO BID@0800,1400 RF: 0 albuterol sulfate 90 mcg/actuation HFA aerosol inhaler 2 puff PO Q4-6H PRN (Reason: Shortness Of Breath) RF: 0 fluoxetine 20 mg capsule 20 mg PO DAILY RF: 0 cholecalciferol (vitamin D3) 25 mcg (1,000 unit) tablet 25 mcg PO DAILY RF: 0 melatonin 5 mg tablet 5 mg PO BEDTIME RF: 0 furosemide 40 mg tablet 60 mg PO QAM RF: 0 amlodipine 10 mg tablet 1 tab PO DAILY RF: 0 chlorhexidine gluconate [Hibiclens] 4 % liquid 1 appl topical DAILY RF: 0 ammonium lactate 12 % Cream 1 appl topical BID 30 Days Qty: 140 RF: 0 oxycodone 5 mg Tablet 5 mg PO Q4H PRN (Reason: Pain, Mild (Pain Scale 1-3)) 3 Days Qty: 18 RF: 0 sodium chloride 0.9 % (flush) [Normal Saline Flush] Syringe 5 ml IVFLUSH TID Qty: 500 RF: 0 ertapenem 1 gram recon soln 1 g IV DAILY 37 Days Qty: 37 RF: 0 vancomycin 500 mg Recon Soln 500 mg IV DAILY RF: 0
--- NOTE | 2021-01-20 00:56 | PC.NURSE ---
DAUGHTER CONCERNED THAT PT HAS BEEN CONFUSED X 4 DAYS AND SOME THAT HE IS BEING OVERMEDICATED. PT ON OXY AND GABAPENTIN. PT'S SPEECH IS GARBLED, PT MAKING STATEMENTS THAT DONT MAKE ANY SENSE - PER DAUGHTER.
--- NOTE | 2021-01-20 00:58 | PC.NURSE ---
PT ON BIPAP 05/12 50%
[2021-01-20] MEDS: iohexoL 350 MG/ML 100 ML INFUS..BTL 65 ML IV (02:37)
--- NOTE | 2021-01-20 03:09 | PC.NURSE ---
PT ON HIGH FLOE NC 30 L/ 35%. PT COMFORTABLE, DAUGHTER AT BEDSIDE.
[2021-01-20] MEDS: 0.9 % Sodium Chloride 1,000 ML 999 ML IVCONT (03:51)
[2021-01-20] MEDS: levoFLOXacin/D5W 500 MG/100 ML PIGGYBACK 100 MG IV (03:51)
[2021-01-20] MEDS: Furosemide 40 MG/4 ML VIAL IVPUSH ×3 (04:59→16:51)
--- NOTE | 2021-01-20 05:09 | P.HPHOSP_ITS ---
History of Present Illness Date of Service: 01/20/21 Chief Complaint: Hypoxia 85-year-old male with past medical history of AFib, diabetes, COPD, alcoholic cardiomyopathy, diabetic osteomyelitis status post right BKA, as well as recent osteomyelitis currently on IV antibiotics, PAD who [facility] after being found hypoxic. History is obtained from his daughter at bedside as patient is very confused and unable to give much history. According to the daughter, she saw him prior to being discharged on January 03 from the hospital at that time he was alert oriented and was able to have conversation with heard. Today she took him to the wound clinic and felt that he was very confused, he could not hold a conversation, he was talking but not making any sense. The wound clinic nurse as well as the daughter felt that this may be secondary to his medications including gabapentin and oxycodone and therefore she requested change in his medications. But according to the daug hter patient became hypoxic in the afternoon and by evening he was very worsened therefore was brought into the hospital. She denied noticing any cough when she took him to the wound clinic today. Per documentation/ED physician patient was found to be 40-50% on [facility]. Patient was placed on high-flow oxygen brought into the hospital. He is currently on high-flow satting 90%. According to the daughter patient had not had any nausea or vomiting, he has been constipated. I am unable to obtain any further review of system Patient's vitals are significant for temp of 97.9?, heart rate of 74, respiratory rate of 23, blood pressure 134/59, patient sats to the 70s on room air. Currently on high-flow 45% satting 90% For WBC count of 9.3, hemoglobin of 9.3 which is around his baseline, hematocrit of 31, PT of 18.3, INR of 1.6, PTT of 50.6, pH of 7.32, BUN of 25, creatinine of 1.18 with a baseline around 1, UA negative, COVID-19 negative influenza A/B and RSV negative. Chest x-ray obtained shows prominent interstitial markings with Nitin B lines consistent with interstitial edema, CT angiogram obtained showed pulmonary effusion Patient will be admitted for further management Review of Systems Review of Systems: Yes all other systems are reviewed and are negative [facility] Medical History Afib Alcoholic cardiomyopathy BPH (benign prostatic hyperplasia) COPD (chronic obstructive pulmonary disease) Diabetes Diabetic osteomyelitis Foot ulcer Hyperlipidemia PAD (peripheral artery disease) Prostate cancer Family History Mother No problems noted. Father No problems noted. Son No problems noted. Son No problems noted. Son No problems noted. Son No problems noted. Daughter No problems noted. Daughter No problems noted. Daughter No problems noted. Surgical History H/O abdominal surgery H/O angioplasty H/O cataract extraction Hx of BKA Social History Household Members: None Housing: Apartment Do you presently have visiting nurse or other home services: Yes Alcohol intake: never Patient Tobacco Use Status: Never used Tobacco Advance Directives: Yes Advance Directives on File: Yes Advance Directives Date on File: 03/28/20 service: No Current occupational status: retired [employer] Allergies Allergy/AdvReac Type Severity Reaction Status Date / Time bee pollen [BEE STINGS] Allergy Severe ANAPHYLAXIS Verified 07/04/20 13:06 doxycycline [DOXYCYCLINE] Allergy Unknown ? ALLERGY Verified 07/04/20 13:06 PER CORROSION CONTROL TECHNICIAN [place] Allergy Mild ITCHING Uncoded 03/28/20 19:48 bee venom Allergy Unknown unspecified Uncoded 03/28/20 19:48 sardines Allergy Unknown itching Uncoded 03/28/20 19:48 Home Medications Medication Instructions Recorded Confirmed Last Taken Type albuterol sulfate 90 mcg/actuation 2 puff PO Q4-6H PRN 03/28/20 01/20/21 Unknown History aerosol inhaler ascorbic acid (vitamin C) 500 mg 500 mg PO BID 03/28/20 01/20/21 Unknown History tablet (Vitamin C) atenolol 25 mg tablet 25 mg PO DAILY 03/28/20 01/20/21 Unknown History cholecalciferol (vitamin D3) 25 25 mcg PO DAILY 03/28/20 01/20/21 Unknown History mcg (1,000 unit) tablet ferrous sulfate 325 mg (65 mg 325 mg PO BID 03/28/20 01/20/21 Unknown History iron) tablet fluoxetine 20 mg capsule 20 mg PO DAILY 03/28/20 01/20/21 Unknown History gabapentin 300 mg capsule 300 mg PO BID@0800,1400 03/28/20 01/20/21 Unknown History gabapentin 600 mg tablet 600 mg PO BEDTIME 03/28/20 01/20/21 Unknown History melatonin 5 mg tablet 5 mg PO BEDTIME 03/28/20 01/20/21 Unknown History metformin 500 mg tablet 500 mg PO DAILY@1700 03/28/20 01/20/21 Unknown History potassium chloride 20 mEq 20 meq PO BEDTIME 03/28/20 01/20/21 Unknown History tablet,extended release(part/cryst) risperidone 0.25 mg tablet 0.25 mg PO BEDTIME 03/28/20 01/20/21 Unknown History tamsulosin 0.4 mg capsule 0.4 mg PO DAILY@1700 03/28/20 01/20/21 Unknown History furosemide 40 mg tablet 60 mg PO QAM 07/04/20 01/20/21 Unknown History amlodipine 10 mg tablet 1 tab PO DAILY 12/25/20 01/20/21 Unknown History chlorhexidine gluconate 4 % 1 appl TOPICAL DAILY 12/25/20 01/20/21 Unknown History topical liquid (Hibiclens) vancomycin 500 mg intravenous 500 mg IV DAILY 01/20/21 01/20/21 Unknown History solution Physical Exam Vital Signs and Narrative: Vital Signs: Last Vital Signs Temp 97.3 F 01/20/21 02:46 Pulse 72 01/20/21 04:59 Resp 30 H 01/20/21 04:59 BP 134/64 01/20/21 04:59 Pulse Ox 91 L 01/20/21 04:59 Oxygen Flow Rate 01/19/21 23:21 Body Mass Index 31.3 Const: Other: Appears uncomfortable General: cooperative Eyes: General: appearance normal, both eyes and all related structures Pupils: Equal, round and reactive pupils present Resp: Other: Tachypneic, has crackles bilaterally Cardio: Rate: regular rate Rhythm: regular rhythm GI: Palpation (GI): Soft to palpation Auscultation: normal bowel sounds Skin: General skin exam: no rashes or lesions noted Neuro: Other: Confused Cranial nerves: Yes Equal, round and reactive pupils present Extrem: Other: Below-knee amputation on the right, left lower extremity in a dressing, has 2+ pitting edema up to the mid of the shaikh Results Labs CBC and Chem 7: 01/19/21 23:31 01/19/21 23:31 Labs: Laboratory Results - last 24 hr 01/19/21 01/19/21 01/19/21 23:31 23:31 23:31 MCV 86.4 MCH 25.9 L MCHC 30.0 L RDW 16.3 H Plt Count 261 MPV 9.7 Immature Gran % (Auto) 0.3 Neut % (Auto) 88.4 H Lymph % (Auto) 4.3 L [place] % (Auto) 6.4 Eos % (Auto) 0.3 Baso % (Auto) 0.3 Lymph # (Auto) 0.4 L [place] # (Auto) 0.6 Eos # (Auto) 0.0 Baso # (Auto) 0.0 Abs Immat Gran (auto) 0.03 Absolute Neuts (auto) 8.2 Absolute Nucleated RBC 0.000 Nucleated RBC % (auto) 0.0 PT INR APTT VBG pH VBG pCO2 VBG pO2 VBG HCO3 VBG O2 Saturation VBG Base Excess Anion Gap 15 Estim Creat Clear Calc 51.6 Estimated GFR 59 Random Glucose 146 H Lactic Acid Calcium 9.1 Troponin I High Sens 10.9 D B-Natriuretic Peptide 314 H Urine Color Urine Appearance Urine pH Ur Specific [place] Urine Protein Urine Glucose (UA) Urine Ketones Urine Blood Urine Nitrite Ur Leukocyte Esterase Coronavirus (PCR) Influenza Type A (PCR) Influenza Type B (PCR) RSV RNA Qual (PCR) 01/19/21 01/19/21 01/19/21 23:31 23:31 23:31 MCV MCH MCHC RDW Plt Count MPV Immature Gran % (Auto) Neut % (Auto) Lymph % (Auto) [place] % (Auto) Eos % (Auto) Baso % (Auto) Lymph # (Auto) [place] # (Auto) Eos # (Auto) Baso # (Auto) Abs Immat Gran (auto) Absolute Neuts (auto) Absolute Nucleated RBC Nucleated RBC % (auto) PT 18.3 H INR 1.6 H APTT 50.6 H VBG pH VBG pCO2 VBG pO2 VBG HCO3 VBG O2 Saturation VBG Base Excess Anion Gap Estim Creat Clear Calc Estimated GFR Random Glucose Lactic Acid 0.8 Calcium Troponin I High Sens B-Natriuretic Peptide Urine Color Urine Appearance Urine pH Ur Specific [place] Urine Protein Urine Glucose (UA) Urine Ketones Urine Blood Urine Nitrite Ur Leukocyte Esterase Coronavirus (PCR) NEGATIVE Influenza Type A (PCR) NEGATIVE Influenza Type B (PCR) NEGATIVE RSV RNA Qual (PCR) NEGATIVE 01/19/21 01/19/21 23:31 23:35 MCV MCH MCHC RDW Plt Count MPV Immature Gran % (Auto) Neut % (Auto) Lymph % (Auto) [place] % (Auto) Eos % (Auto) Baso % (Auto) Lymph # (Auto) [place] # (Auto) Eos # (Auto) Baso # (Auto) Abs Immat Gran (auto) Absolute Neuts (auto) Absolute Nucleated RBC Nucleated RBC % (auto) PT INR APTT VBG pH 7.32 VBG pCO2 53 VBG pO2 63 VBG HCO3 28 H VBG O2 Saturation 85.0 VBG Base Excess 1.2 Anion Gap Estim Creat Clear Calc Estimated GFR Random Glucose Lactic Acid Calcium Troponin I High Sens B-Natriuretic Peptide Urine Color YELLOW Urine Appearance CLEAR Urine pH 5.5 Ur Specific [place] 1.020 Urine Protein TRACE Urine Glucose (UA) NEG Urine Ketones NEG Urine Blood NEG Urine Nitrite NEG Ur Leukocyte Esterase NEG Coronavirus (PCR) Influenza Type A (PCR) Influenza Type B (PCR) RSV RNA Qual (PCR) Imaging Radiologist's Impressions: Impressions Chest X-Ray 01/19/21 23:08 IMPRESSION: Prominent interstitial markings with Nitin B-lines is most consistent with interstitial edema. Chest CTA 01/20/21 00:42 IMPRESSION: 1. No pulmonary embolism. 2. Small bilateral pleural effusions. Groundglass opacities in the lungs are nonspecific but could be associated with edema versus infectious/inflammatory process. 3. Prominent mediastinal lymph nodes, likely reactive. VTE: negative Assessment and Plan (1) Acute respiratory failure with hypoxia: Status: Acute (2) Encephalopathy: Status: Acute (3) CHF exacerbation: Status: Acute 85-year-old male with an recent admission for osteomyelitis and discharged on January 03 after surgical intervention, diabetes, CHF who presents to the hospital with hypoxic respiratory failure # acute hypoxic respiratory failure - most likely secondary to CHF exacerbation, unlikely to be secondary to pneumonia, COVID-19 negative, no PE - patient fully vaccinated, has evidence of interstitial edema on chest x-ray and CT angiogram - elevated BNP - patient afebrile, no leukocytosis to indicate pneumonia. No evidence of cough her sputum production - this time will continue his oxygen high-flow - monitor respiratory status closely # encephalopathy - possibly secondary to recent hospitalization as well as acute disease versus polypharmacy - will obtain head CT to rule out any acute abnormality - will hold gabapentin that was ordered b.i.d. # CHF exacerbation - hypoxia, dyspnea, lower extremity edema, elevated BNP, CT chest and chest x- ray evidence of pulmonary edema - start him on IV Lasix 40 IV b.i.d. - low-sodium diet, strict I&O, daily weight - echocardiogram - cardiology consulted # diabetes - hold metformin - start diabetic diet - low-dose sliding scale insulin # AFib - continue apixaban, atenolol # recent osteomyelitis - wound is evaluated by wound clinic today, it is well wrapped, no evidence of discharge - patient has no leukocytosis and is afebrile - continue ertapenem and vancomycin DVT prophylaxis: Heparin subQ Quality Stroke Does the patient have a stroke diagnosis?: No VTE Prior VTE?: No VTE Risk Level:: Medical - moderate - high VTE Device Contraindication: Treatment Not Indicated VTE Drug Contraindication: N/A - Med Ordered
--- NOTE | 2021-01-20 06:06 | PC.NURSE ---
PT HAS HEALING WOUND ON COCCYX, STAGE 2 ULCER. DAUGHTER VISUALIZED WOUND, REMARKED IT LOOKED LIKE IT WAS HEALING. PADDED BANDAGE PLACED OVER WOUND. PT REPOSITIONED TO RIGHT SIDE.
--- NOTE | 2021-01-20 06:10 | PC.NURSE ---
DAUGHTER REPORTS PT WAS COVID POSITIVE IN JULY, WHICH COULD EXPLAIN GROUND GLASS PATTERN ON CT SCAN.
--- NOTE | 2021-01-20 07:08 | PC.NURSE ---
[place] [facility] [place], was told rn is in report and will be told this rn called.
[2021-01-20 07:54] LABS: Glucose, Whole Blood 128 mg/dL (60-115)
[2021-01-20 08:52] LABS: Glucose, Whole Blood 123 mg/dL (60-115)
[2021-01-20] MEDS: Apixaban 5 MG TABLET PO ×2 (09:32→20:29)
[2021-01-20] MEDS: Ertapenem Sodium 1 GM VIAL IV (09:32)
[2021-01-20] MEDS: atenoloL 25 MG TABLET PO (09:35)
[2021-01-20] MEDS: FLUoxetine HCl 20 MG CAPSULE PO (09:36)
[2021-01-20] MEDS: 0.9 % Sodium Chloride Flush 3 ML SYRINGE IVFLUSH ×3 (09:36→20:31)
[2021-01-20] MEDS: 0.9 % Sodium Chloride Flush 10 ML SYRINGE 5 ML IVFLUSH ×3 (09:36→20:30)
[2021-01-20] MEDS: Atorvastatin Calcium 20 MG TABLET PO (09:36)
[2021-01-20] MEDS: Cholecalciferol (Vitamin D3) 25 MCG TABLET PO ×2 (09:37→09:45)
[2021-01-20] MEDS: Ascorbic Acid 500 MG TABLET PO ×2 (09:37→20:29)
[2021-01-20] MEDS: amLODIPine Besylate 10 MG TABLET PO (09:45)
--- NOTE | 2021-01-20 10:00 | MHC.CM.PN ---
CM met with Patient and Daughter/HCP/Migna at bedside and addressed IMM, providing them with the original and placing a copy on the chart. Patient came to [facility] from [facility], where he was receiving STR. Returning to [facility] is the goal for dc, to complete STR and CM has initiated and will follow for dc planning. 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 PCP is ANNA Barajas at [facility].
--- NOTE | 2021-01-20 11:15 | PM.EVENT ---
Event Note Date of Service: 01/20/21 Event Note: This is an 85 year-old man with DM2 with neuropathy and peripheral arterial disease with history of right BKA, recent admission for infected ulcers of the left foot/osteomyelitis admitted for respiratory failure in the setting of CHF admitted this morning for acute on chronic respiratory failure r/t acute on chronic HF uses supplemental o2 prn at baseline echo from 07/05 showing persevered EF -cardiology consult -iv lasix -diez for strict Is & Os encephalopathy possibly secondary to recent hospitalization as well as acute disease versus polypharmacy brain CT negative pt confused on last admission as well. Family reports no confusion at baseline - they think confusion secondary to pain medication -will decrease frequency of oxycodone, gabapentin dose decreased -may need further medication adjustment osteomyelitis left foot -continue vancomycin, ertapenem continue other baseline medications dvt ppx - eliquis attending: dr. rand
--- NOTE | 2021-01-20 11:42 | PM.CNCAR ---
History of Present Illness History of Present Illness Date of Service: 01/20/21 Consult reason: congestive heart failure Chief complaint: Acute hypoxic resp failure Narrative: This is a cardiology consultation regarding congestive heart failure. His last appointment in the office was about an year ago. He has atrial fibrillation that has been present for almost a decade. Otherwise, he also has significant peripheral vascular disease but no documented coronary disease. Current admission is because of hypoxia. 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 However when I questioned him regarding any chest pain he states no. He also denies any shortness of breath. Apparently, he was deciding to somewhere in the 40-50% range on room air in the senior care. Then he was placed on high-flow oxygen and then brought here. He is being treated for congestive heart failure. Review of Systems Review of Systems: Unable to obtain any review of systems due to patient's mental status. [facility]LY [facility] Past Medical History Medical History (Updated 01/20/21 @ 11:49 by Messi Whitt MD) Afib Alcoholic cardiomyopathy BPH (benign prostatic hyperplasia) COPD (chronic obstructive pulmonary disease) COVID-19 Diabetes Diabetic osteomyelitis Foot ulcer Hyperlipidemia PAD (peripheral artery disease) Prostate cancer Family History Family History Mother No problems noted. Father No problems noted. Son No problems noted. Son No problems noted. Son No problems noted. Son No problems noted. Daughter No problems noted. Daughter No problems noted. Daughter No problems noted. Surgical History Surgical History H/O abdominal surgery H/O angioplasty H/O cataract extraction Hx of BKA Social History Social History Household Members: None Housing: Longterm Do you presently have visiting nurse or other home services: Yes Alcohol intake: never Patient Tobacco Use Status: Never used Tobacco Use of substances other than those prescribed or required for medical reasons: No Have you been hit, kicked, punched, or otherwise hurt by someone within the past year? If so, by whom?: No Do you feel safe in your current relationship?: No Is there a partner from a previous relationship who is making you feel unsafe now?: No Are you made to feel afraid or neglected: No Spiritual Healthcare Practices: none Yazidi Healthcare Practices: none Cultural Healthcare Practices: none Advance Directives: Yes Advance Directives on File: Yes Advance Directives Date on File: 03/28/20 Do you have thoughts of harming others: None Do you have a plan to hurt others: No Plan Recently lost weight without trying: Unsure service: No Current occupational status: retired Meds Allergies Allergy/AdvReac Type Severity Reaction Status Date / Time bee pollen [BEE STINGS] Allergy Severe ANAPHYLAXIS Verified 07/04/20 13:06 doxycycline [DOXYCYCLINE] Allergy Unknown ? ALLERGY Verified 07/04/20 13:06 PER PROFESSOR OF [employer]ILOS[employer] Allergy Mild ITCHING Uncoded 03/28/20 19:48 bee venom Allergy Unknown unspecified Uncoded 03/28/20 19:48 sardines Allergy Unknown itching Uncoded 03/28/20 19:48 Active Medications: Current Medications Generic Name Dose Route Start Last Admin Trade Name Freq PRN Reason Stop Dose Admin Acetaminophen 650 mg 01/20/21 05:55 Acetaminophen 325 Mg Tablet PO Q6H PRN Pain, Mild (Pain Scale 1-3) Amlodipine Besylate 10 mg 01/20/21 09:00 01/20/21 09:45 Amlodipine Besylate 10 Mg Tablet PO 10 mg DAILY BREE Administration Protocol Apixaban 5 mg 01/20/21 09:00 01/20/21 09:32 Apixaban 5 Mg Tablet PO 5 mg BID BREE Administration Ascorbic Acid 500 mg 01/20/21 09:00 01/20/21 09:37 Ascorbic Acid 500 Mg Tablet PO 500 mg BID BREE Administration Atenolol 25 mg 01/20/21 09:00 01/20/21 09:35 Atenolol 25 Mg Tablet PO 25 mg DAILY BREE Administration Protocol Atorvastatin Calcium 20 mg 01/20/21 09:00 01/20/21 09:36 Atorvastatin Calcium 20 Mg Tablet PO 20 mg DAILY BREE Administration Dextrose 25 gm 01/20/21 05:55 Dextrose 50 % 25 Gm/50 Ml Vial IVPUSH Q15M PRN per Hypoglycemia Standing Ord. Protocol Docusate Sodium 100 mg 01/20/21 05:55 Docusate Sodium 100 Mg Capsule PO DAILY PRN Constipation Ertapenem 1 gm 01/20/21 09:00 01/20/21 09:32 Ertapenem Sodium 1 Gm Vial IV 1 gm DAILY BREE Administration Fluoxetine HCl 20 mg 01/20/21 09:00 01/20/21 09:36 Fluoxetine Hcl 20 Mg Capsule PO 20 mg DAILY BREE Administration Furosemide 40 mg 01/20/21 09:00 01/20/21 09:37 Furosemide 40 Mg/4 Ml Vial IVPUSH 40 mg BID@0900,1800 BREE Administration Protocol Gabapentin 600 mg 01/20/21 21:00 Gabapentin 600 Mg Tablet PO BEDTIME BREE Glucose 15 gm 01/20/21 05:55 Glucose Gel 15 Gm Gel..Gram. PO Q15M PRN per Hypoglycemia Standing Ord. Protocol Insulin Human Lispro 0 unit 01/20/21 07:30 01/20/21 09:36 Insulin Lispro 100 Unit/Ml 3 Ml Vial SUBCUT Not Given [facility] Protocol Ondansetron HCl 4 mg 01/20/21 05:55 Ondansetron Hcl 4 Mg/2 Ml Vial IVPUSH Q8H PRN Nausea and Vomiting Oxycodone HCl 5 mg 01/20/21 11:34 Oxycodone Hcl Immed Release 5 Mg Tablet PO Q6H PRN Pain, Mild (Pain Scale 1-3) Potassium Chloride 20 meq 01/20/21 21:00 Potassium Chloride Er 20 Meq Tab.Er.Prt PO BEDTIME [facility] Risperidone 0.25 mg 01/20/21 21:00 Risperidone 0.25 Mg Tablet PO BEDTIME [facility] Sodium Chloride 5 ml 01/20/21 09:00 01/20/21 09:36 0.9 % Sodium Chloride Flush 10 Ml Syringe IVFLUSH 5 ml TID BREE Administration Sodium Chloride 3 ml 01/20/21 08:00 01/20/21 09:36 0.9 % Sodium Chloride Flush 3 Ml Syringe IVFLUSH 3 ml QSHIFT [facility] Administration Tamsulosin HCl 0.4 mg 01/20/21 17:00 Tamsulosin Hcl 0.4 Mg Capsule PO DAILY@1700 [facility] Vancomycin HCl 500 mg 01/20/21 09:00 01/20/21 10:00 Vancomycin Hcl 500 Mg/10 Ml Vial IV 500 mg DAILY BREE Administration Vitamin D 25 mcg 01/20/21 09:00 01/20/21 09:45 Cholecalciferol (Vitamin D3) 25 Mcg Tablet PO 25 mcg DAILY BREE Administration Home Medications Medication Instructions Recorded Confirmed Last Taken Type albuterol sulfate 90 mcg/actuation 2 puff PO Q4-6H PRN 03/28/20 01/20/21 Unknown History aerosol inhaler ascorbic acid (vitamin C) 500 mg 500 mg PO BID 03/28/20 01/20/21 Unknown History tablet (Vitamin C) atenolol 25 mg tablet 25 mg PO DAILY 03/28/20 01/20/21 Unknown History cholecalciferol (vitamin D3) 25 25 mcg PO DAILY 03/28/20 01/20/21 Unknown History mcg (1,000 unit) tablet ferrous sulfate 325 mg (65 mg 325 mg PO BID 03/28/20 01/20/21 Unknown History iron) tablet fluoxetine 20 mg capsule 20 mg PO DAILY 03/28/20 01/20/21 Unknown History gabapentin 300 mg capsule 300 mg PO BID@0800,1400 03/28/20 01/20/21 Unknown History gabapentin 600 mg tablet 600 mg PO BEDTIME 03/28/20 01/20/21 Unknown History melatonin 5 mg tablet 5 mg PO BEDTIME 03/28/20 01/20/21 Unknown History metformin 500 mg tablet 500 mg PO DAILY@1700 03/28/20 01/20/21 Unknown History potassium chloride 20 mEq 20 meq PO BEDTIME 03/28/20 01/20/21 Unknown History tablet,extended release(part/cryst) risperidone 0.25 mg tablet 0.25 mg PO BEDTIME 03/28/20 01/20/21 Unknown History tamsulosin 0.4 mg capsule 0.4 mg PO DAILY@1700 03/28/20 01/20/21 Unknown History furosemide 40 mg tablet 60 mg PO QAM 07/04/20 01/20/21 Unknown History amlodipine 10 mg tablet 1 tab PO DAILY 12/25/20 01/20/21 Unknown History chlorhexidine gluconate 4 % 1 appl TOPICAL DAILY 12/25/20 01/20/21 Unknown History topical liquid (Hibiclens) vancomycin 500 mg intravenous 500 mg IV DAILY 01/20/21 01/20/21 Unknown History solution Physical Exam Vital Signs: Vital Signs: Last Vital Signs Temp 96.8 F 01/20/21 08:00 Pulse 66 01/20/21 09:45 Resp 20 01/20/21 08:00 BP 143/73 H 01/20/21 09:45 Pulse Ox 95 01/20/21 09:34 Oxygen Flow Rate 15 01/19/21 23:21 Body Mass Index 29.8 Const: General: cooperative and no acute distress HENMT: Other: Unremarkable Neck: Neck: Yes normal visual inspection Chest: Chest palpation & inspection: normal inspection of the chest Resp: Other: Bilateral basal crackles Cardio: Jugular venous distension: no JVD Palpation: normal PMI Heart sounds: S1 normal heart sound present, S2 normal heart sound present, no gallops, no murmurs and no rubs GI: Palpation (GI): Soft to palpation Back/Spine/Pelvis: Other: unremarkable Skin: General skin exam: no rashes or lesions noted Neuro: Cranial nerves: Yes Other cranial nerve findings present Extrem: Other: Right below-knee amputation; left side with some leg swelling but there is also dressing on left foot. Psych: Mental Status: other Results Labs and Meds Result diagrams: 01/19/21 23:31 01/19/21 23:31 Lab results: Laboratory Results - last 24 hr 01/19/21 01/19/21 01/19/21 23:31 23:31 23:31 WBC 9.3 RBC 3.59 L Hgb 9.3 L Hct 31.0 L MCV 86.4 MCH 25.9 L MCHC 30.0 L RDW 16.3 H Plt Count 261 MPV 9.7 Immature Gran % (Auto) 0.3 Neut % (Auto) 88.4 H Lymph % (Auto) 4.3 L [place] % (Auto) 6.4 Eos % (Auto) 0.3 Baso % (Auto) 0.3 Lymph # (Auto) 0.4 L [place] # (Auto) 0.6 Eos # (Auto) 0.0 Baso # (Auto) 0.0 Abs Immat Gran (auto) 0.03 Absolute Neuts (auto) 8.2 Absolute Nucleated RBC 0.000 Nucleated RBC % (auto) 0.0 PT INR APTT VBG pH VBG pCO2 VBG pO2 VBG HCO3 VBG O2 Saturation VBG Base Excess Sodium 139 Potassium 4.5 D Chloride 100 Carbon Dioxide 29 Anion Gap 15 BUN 25 H Creatinine 1.18 Estim Creat Clear Calc 51.6 Estimated GFR 59 POC Glucose Random Glucose 146 H Lactic Acid Calcium 9.1 Troponin I High Sens 10.9 D B-Natriuretic Peptide 314 H Urine Color Urine Appearance Urine pH Ur Specific [place] Urine Protein Urine Glucose (UA) Urine Ketones Urine Blood Urine Nitrite Ur Leukocyte Esterase Coronavirus (PCR) Influenza Type A (PCR) Influenza Type B (PCR) RSV RNA Qual (PCR) 01/19/21 01/19/21 01/19/21 23:31 23:31 23:31 WBC RBC Hgb Hct MCV MCH MCHC RDW Plt Count MPV Immature Gran % (Auto) Neut % (Auto) Lymph % (Auto) [place] % (Auto) Eos % (Auto) Baso % (Auto) Lymph # (Auto) [place] # (Auto) Eos # (Auto) Baso # (Auto) Abs Immat Gran (auto) Absolute Neuts (auto) Absolute Nucleated RBC Nucleated RBC % (auto) PT 18.3 H INR 1.6 H APTT 50.6 H VBG pH VBG pCO2 VBG pO2 VBG HCO3 VBG O2 Saturation VBG Base Excess Sodium Potassium Chloride Carbon Dioxide Anion Gap BUN Creatinine Estim Creat Clear Calc Estimated GFR POC Glucose Random Glucose Lactic Acid 0.8 Calcium Troponin I High Sens B-Natriuretic Peptide Urine Color Urine Appearance Urine pH Ur Specific [place] Urine Protein Urine Glucose (UA) Urine Ketones Urine Blood Urine Nitrite Ur Leukocyte Esterase Coronavirus (PCR) NEGATIVE Influenza Type A (PCR) NEGATIVE Influenza Type B (PCR) NEGATIVE RSV RNA Qual (PCR) NEGATIVE 01/19/21 01/19/21 01/20/21 23:31 23:35 07:51 WBC RBC Hgb Hct MCV MCH MCHC RDW Plt Count MPV Immature Gran % (Auto) Neut % (Auto) Lymph % (Auto) [place] % (Auto) Eos % (Auto) Baso % (Auto) Lymph # (Auto) [place] # (Auto) Eos # (Auto) Baso # (Auto) Abs Immat Gran (auto) Absolute Neuts (auto) Absolute Nucleated RBC Nucleated RBC % (auto) PT INR APTT VBG pH 7.32 VBG pCO2 53 VBG pO2 63 VBG HCO3 28 H VBG O2 Saturation 85.0 VBG Base Excess 1.2 Sodium Potassium Chloride Carbon Dioxide Anion Gap BUN Creatinine Estim Creat Clear Calc Estimated GFR POC Glucose 128 H Random Glucose Lactic Acid Calcium Troponin I High Sens B-Natriuretic Peptide Urine Color YELLOW Urine Appearance CLEAR Urine pH 5.5 Ur Specific [place] 1.020 Urine Protein TRACE Urine Glucose (UA) NEG Urine Ketones NEG Urine Blood NEG Urine Nitrite NEG Ur Leukocyte Esterase NEG Coronavirus (PCR) Influenza Type A (PCR) Influenza Type B (PCR) RSV RNA Qual (PCR) 01/20/21 08:46 WBC RBC Hgb Hct MCV MCH MCHC RDW Plt Count MPV Immature Gran % (Auto) Neut % (Auto) Lymph % (Auto) [place] % (Auto) Eos % (Auto) Baso % (Auto) Lymph # (Auto) [place] # (Auto) Eos # (Auto) Baso # (Auto) Abs Immat Gran (auto) Absolute Neuts (auto) Absolute Nucleated RBC Nucleated RBC % (auto) PT INR APTT VBG pH VBG pCO2 VBG pO2 VBG HCO3 VBG O2 Saturation VBG Base Excess Sodium Potassium Chloride Carbon Dioxide Anion Gap BUN Creatinine Estim Creat Clear Calc Estimated GFR POC Glucose 123 H Random Glucose Lactic Acid Calcium Troponin I High Sens B-Natriuretic Peptide Urine Color Urine Appearance Urine pH Ur Specific [place] Urine Protein Urine Glucose (UA) Urine Ketones Urine Blood Urine Nitrite Ur Leukocyte Esterase Coronavirus (PCR) Influenza Type A (PCR) Influenza Type B (PCR) RSV RNA Qual (PCR) ECG Interpretation: EKG with atrial fibrillation, 80/Min and incomplete right bundle-branch block. Similar to prior. Imaging Radiologist's impression: Impressions Chest X-Ray 01/19/21 23:08 IMPRESSION: Prominent interstitial markings with Nitin B-lines is most consistent with interstitial edema. Chest CTA 01/20/21 00:42 IMPRESSION: 1. No pulmonary embolism. 2. Small bilateral pleural effusions. Groundglass opacities in the lungs are nonspecific but could be associated with edema versus infectious/inflammatory process. 3. Prominent mediastinal lymph nodes, likely reactive. VTE: negative Head CT 01/20/21 05:08 IMPRESSION: No acute intracranial pathology. 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 Assessment and Plan (1) Acute on chronic diastolic (congestive) heart failure: Status: Acute (2) Persistent atrial fibrillation: Status: Acute (3) Pulmonary hypertension: Status: Acute (4) Acute respiratory failure with hypoxia: Status: Acute Pertinent data reviewed. Cardiac BNP is 314. Previous value from December was 275. Lowest was 63 on 12/25/2020. Prior values are grossly similar. High sensitive troponin unremarkable. Potassium 4.5. Creatinine is 1.18. Hemoglobin 9.3. Chest x-ray reported to have prominent interstitial markings most consistent with edema. Chest CT scan reported to have no pulmonary embolism; small bilateral pleural effusions; ground-glass opacities which are nonspecific but could be from edema versus infection/inflammation. Last echocardiogram from June with LVEF 60-65%; moderately dilated left atrium and mild pulmonary hypertension with elevated right atrial pressures. We can treat him for acute on chronic diastolic heart failure. Agree with IV diuretics. Otherwise plan to repeat an echocardiogram. Follow-up tomorrow. Procedures Date of Service Date of Service: 01/20/21
[2021-01-20] MEDS: Insulin Lispro 100 UNIT/ML 3 ML VIAL SUBCUT (13:01)
[2021-01-20 13:02] LABS: Glucose, Whole Blood 153 mg/dL (60-115)
[2021-01-20 16:10] LABS: Glucose, Whole Blood 125 mg/dL (60-115)
[2021-01-20 16:22] LABS: Glucose, Whole Blood 136 mg/dL (60-115)
[2021-01-20] MEDS: Tamsulosin HCL 0.4 MG CAPSULE PO (16:50)
[2021-01-20 20:06] LABS: Glucose, Whole Blood 147 mg/dL (60-115)
[2021-01-20] MEDS: risperiDONE 0.25 MG TABLET PO (20:29)
[2021-01-20] MEDS: Potassium Chloride ER 20 MEQ TAB.ER.PRT PO (20:29)
[2021-01-21] MEDS: Acetaminophen 325 MG TABLET 650 MG PO ×2 (00:36→16:31)
[2021-01-21 06:00] VITALS: BMI 29.9
[2021-01-21 06:50] VITALS: BP 152/78; PULSE 70; RESP 22; TEMP 36.1; O2SAT 90
[2021-01-21 06:54] LABS: Glucose, Whole Blood 109 mg/dL (60-115)
[2021-01-21 07:32] VITALS: BP 152/78; PULSE 70
[2021-01-21] MEDS: Cholecalciferol (Vitamin D3) 25 MCG TABLET PO (07:32)
[2021-01-21] MEDS: Apixaban 5 MG TABLET PO (07:32)
[2021-01-21] MEDS: atenoloL 25 MG TABLET PO (07:32)
[2021-01-21 07:33] VITALS: BP 152/78; PULSE 70
[2021-01-21] MEDS: amLODIPine Besylate 10 MG TABLET PO (07:33)
[2021-01-21] MEDS: FLUoxetine HCl 20 MG CAPSULE PO (07:33)
[2021-01-21] MEDS: Atorvastatin Calcium 20 MG TABLET PO (07:34)
[2021-01-21] MEDS: Furosemide 40 MG/4 ML VIAL IVPUSH ×2 (07:34→17:08)
[2021-01-21] MEDS: Ascorbic Acid 500 MG TABLET PO (07:34)
[2021-01-21] MEDS: Ertapenem Sodium 1 GM VIAL IV (07:35)
[2021-01-21] MEDS: 0.9 % Sodium Chloride Flush 10 ML SYRINGE 5 ML IVFLUSH ×3 (07:36→17:06)
--- NOTE | 2021-01-21 08:00 | CA_ITS ---
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 The visually estimated ejection fraction is between 55-60%. - The left atrium is severely dilated. - There is mild calcification of the aortic valve. - There is moderate anterior mitral leaflet thickening. There is mild mitral valve regurgitation. - There is mild tricuspid valve regurgitation. - Mild to moderate pulmonary hypertension is present. Findings Left Ventricle Normal left ventricular cavity size. There is moderately increased left ventricular wall thickness. The left ventricular systolic function is normal. The visually estimated ejection fraction is between 55-60%. There is no evidence of regional wall motion abnormalities. Diastolic function is indeterminate on the basis of available data. Right Ventricle Mildly increased right ventricular cavity size. There is normal right ventricular systolic function. Atria The left atrium is severely dilated. The right atrium is moderately dilated. Aortic Valve There is a normal trileaflet aortic valve. There is mild calcification of the aortic valve. There is no aortic valve stenosis. There is no aortic valve regurgitation. Mitral Valve There is moderate anterior mitral leaflet thickening. There is mild mitral valve regurgitation. There is no mitral valve stenosis. Pulmonic Valve The pulmonic valve was not well visualized. There is mild pulmonic valve regurgitation. Tricuspid Valve Normal tricuspid valve structure. There is mild tricuspid valve regurgitation. The right ventricular systolic pressure is 49 mmHg. Mild to moderate pulmonary hypertension is present. Great Vessels The asc aorta is normal in size. Venous The inferior vena cava is normal in size and collapses greater than 50% with inspiration. Pericardium/Pleural There is a trivial pericardial effusion. Prior Study Comparison No significant change compared to prior study dated: 07/05/2020. Measurements 2D Linear Measurements RVIDd: 2.89 RVIDd Index: 1.42 IVSd: 1.44 0.6-0.9/0.6-1.0 cm LVIDd: 4.40 3.9-5.3/4.2-5.9 cm LVIDd Index: 2.17 2.4-3.2/2.2-3.1 cm/m2 LVIDs: 3.96 2.0-3.6 cm LVPWd: 1.40 0.7-1.1 cm Ao Root: 3.70 2.1-3.5 cm LA Diam: 5.00 2.7-3.8/3.0-4.0 cm LAIDs Index: 2.46 1.5-2.3 cm/m2 LV Mass: 306.09 67-162/88-224 g LV Mass Index: 150.78 43-95/49-115 g/m2 LVOT Diam: 2.40 3.0+(-)1.3 cm 2D Systolic Function EF 4C: 41.50 >55% EF 2C: 52.90 >55% Mitral Valve MR Vol - PW Dopp: 18.81 MR VTI: 1.71 MR ERO: 11.00 MR Alias Jayesh: 0.36 MR RAD: 0.50 Aortic Valve AoV Pk Jayesh: 1.17 AoV Mn Jayesh: 0.82 AoV VTI: 0.28 AoV Pk Grad: 5.00 Aov Mn Grad: 3.00 LATA Cont.VTI: 3.01 LVOT LVOT Pk Jayesh: 0.72 LVOT Mn Jayesh: 0.49 LVOT VTI: 0.19 LVOT Pk Grad: 2.00 LVOT Mn Grad: 1.00 LVOT Diam: 2.40 LVOT Area: 4.52 Right Ventricle TAPSE (mm): 20.00 TVS' Jayesh: 12.80 Tricuspid Valve TR Pk Jayesh: 3.20 TR Pk Grad: 41.00 RA Press: 8.00 RVSP: 49.00 Great Vessels Aorta Ao Root-2D: 3.70 2.0-3.7 cm Ao Asc: 3.50 2.1-3.4 cm Updated in Other Vendor System with Status of Final Messi Whitt MD electronically signed on 01/21/2021 4:14:28 PM with status of Final
[2021-01-21 08:28] LABS: MANUAL DIFF FLAG NO
[2021-01-21 08:31] LABS: Basophils Percent Auto 0.3 % (0-2); Eosinophils Absolute Auto 0.2 X10*3/uL (0.0-0.4); Eosinophils Percent Auto 2.4 % (0-4); Hematocrit 29.5 % (42-52); Hemoglobin 8.8 g/dl (14.0-18.0); Imm Gran Abs Auto 0.03 X10*3/uL (0.00-0.03); Imm Gran Pct Auto 0.4 % (0.0-0.4); Lymphocytes Absolute Auto 0.6 X10*3/uL (1.2-4.9); Mean Corpuscular HGB Conc 29.8 g/dl (31.0-36.0); Mean Corpuscular Hemoglobin 25.4 pg (27.0-33.0); Mean Corpuscular Volume 85.3 fL (80-98); Mean Platelet Volume 10.4 fL (9.4-12.4); Monocytes Absolute Auto 0.7 X10*3/uL (0.1-1.2); Monocytes Percent Auto 10.2 % (2-11); Neutrophils Absolute Auto 5.4 X10*3/uL (2.0-8.3); Neutrophils Percent Auto 77.7 % (45-73); Platelet Count 233 X10*3/uL (160-400); Red Blood Count 3.46 X10*6/uL (4.60-5.80); Red Cell Distribution Width 16.2 % (11.0-16.0)
[2021-01-21 08:57] LABS: Anion Gap 13 (12-20); Blood Urea Nitrogen 21 mg/dL (9-16); Calcium 8.8 mg/dL (8.4-10.2); Carbon Dioxide 29 mmol/L (22-29); Chloride 102 mmol/L (96-108); Creatinine Clr Calc Pharmacy 67.1; Estimated Glomerular Filt Rate > 60; Glucose Random 115 mg/dL (60-115); Sodium 140 mmol/L (135-145)
[2021-01-21 09:02] LABS: Vancomycin Random 19.1 mcg/mL (15-20)
--- NOTE | 2021-01-21 09:44 | P.CDIC_ITS ---
CDI Concurrent Query Service Date: 01/21/21 Documentation Clarification: Please clarify if you are treating a proba ble/suspected/likely or confirmed: Based on the above, please further specify, in the Progress Notes, the known or suspected type of the documented encephalopathy: - Metabolic - Septic - Toxic - Toxic metabolic - Hypertensive - Anoxic - Alcoholic - Hepatic (reported as hepatic failure and needs further specificity as to acute, subacute, or chronic) - Due to a specified condition (such as UTI, hyponatremia, CVA, etc.) - Other (please specify): - Unable to determine Use of terms such as suspected, likely, concern for, or probable (associated with a specific diagnosis that is being evaluated, monitored, or treated as if it exists) are acceptable and can be coded in the inpatient setting, when documented at the time of discharge. Provider Response: Other Other Diagnosis: Toxic/Metabolic Encephalopathy PLEASE DO NOT DELETE/MODIFY EXISTING CONTENT Additional information is needed in order to code to the highest accuracy and appropriate Severity of Illness (SOI). Please clarify the information noted below in your progress notes and discharge summary. Risk Factors/Clinical Indicators/Treatments Per H&P: Encephalopathy possibly secondary to recent hospitalization, acute disease, vs polypharmacy AMS, SAT 40s, speech incomprehensible per ED note CDS: Valentina Lawrence RN Contact Number: [phone] Please Review the information above and exercise your independent professional judgment in responding to the query. If you concur, pleas document in the PROGRESS NOTES and DISCHARGE SUMMARY. If you do not agree with the query, please document in the query above. THIS QUERY IS PART OF THE PERMANENT MEDICAL RECORD
--- NOTE | 2021-01-21 09:46 | P.PNCA_ITS ---
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 States he feels OK and denies chest pain or shortness of breath. Review of Systems Review of Systems Unable to obtain any review of systems due to patient's mental status. Physical Exam Vital Signs: Last Vital Signs Temp 96.9 F 01/21/21 06:50 Pulse 70 01/21/21 07:33 Resp 22 H 01/21/21 06:50 BP 152/78 H 01/21/21 07:33 Pulse Ox 90 L 01/21/21 06:50 Oxygen Flow Rate 15 01/19/21 23:21 Body Mass Index 29.9 Const General: cooperative and no acute distress HENLA Other: Unremarkable Neck Neck: Yes normal visual inspection Chest Chest palpation & inspection: normal inspection of the chest Resp Other: Bilateral basal crackles Cardio Jugular venous distension: no JVD Palpation: normal PMI Heart sounds: S1 normal heart sound present, S2 normal heart sound present, no gallops, no murmurs and no rubs GI Palpation (GI): Soft to palpation Back/Spine/Pelvis Other: unremarkable Skin General skin exam: no rashes or lesions noted Neuro Cranial nerves: Yes Other cranial nerve findings present Extrem Other: Right below-knee amputation; left side with some leg swelling but there is also dressing on left foot. Psych Mental Status: other Results Labs and Meds Result diagrams: 01/21/21 08:05 01/21/21 08:05 Lab results: Laboratory Results - last 24 hr 01/20/21 01/20/21 01/20/21 11:15 12:58 16:07 WBC RBC Hgb Hct MCV MCH MCHC RDW Plt Count MPV Immature Gran % (Auto) Neut % (Auto) Lymph % (Auto) [place] % (Auto) Eos % (Auto) Baso % (Auto) Lymph # (Auto) [place] # (Auto) Eos # (Auto) Baso # (Auto) Abs Immat Gran (auto) Absolute Neuts (auto) Absolute Nucleated RBC Nucleated RBC % (auto) Sodium Potassium Chloride Carbon Dioxide Anion Gap BUN Creatinine Estim Creat Clear Calc Estimated GFR POC Glucose 136 H 153 H 125 H Random Glucose Calcium Random Vancomycin 01/20/21 01/21/21 01/21/21 20:01 06:51 08:05 WBC RBC Hgb Hct MCV MCH MCHC RDW Plt Count MPV Immature Gran % (Auto) Neut % (Auto) Lymph % (Auto) [place] % (Auto) Eos % (Auto) Baso % (Auto) Lymph # (Auto) [place] # (Auto) Eos # (Auto) Baso # (Auto) Abs Immat Gran (auto) Absolute Neuts (auto) Absolute Nucleated RBC Nucleated RBC % (auto) Sodium Potassium Chloride Carbon Dioxide Anion Gap BUN Creatinine Estim Creat Clear Calc Estimated GFR POC Glucose 147 H 109 Random Glucose Calcium Random Vancomycin 19.1 01/21/21 01/21/21 08:05 08:05 WBC 7.0 RBC 3.46 L Hgb 8.8 L Hct 29.5 L MCV 85.3 MCH 25.4 L MCHC 29.8 L RDW 16.2 H Plt Count 233 MPV 10.4 Immature Gran % (Auto) 0.4 Neut % (Auto) 77.7 H Lymph % (Auto) 9.0 L [place] % (Auto) 10.2 Eos % (Auto) 2.4 Baso % (Auto) 0.3 Lymph # (Auto) 0.6 L [place] # (Auto) 0.7 Eos # (Auto) 0.2 Baso # (Auto) 0.0 Abs Immat Gran (auto) 0.03 Absolute Neuts (auto) 5.4 Absolute Nucleated RBC 0.000 Nucleated RBC % (auto) 0.0 Sodium 140 Potassium 4.0 Chloride 102 Carbon Dioxide 29 Anion Gap 13 BUN 21 H Creatinine 0.89 Estim Creat Clear Calc 67.1 Estimated GFR > 60 POC Glucose Random Glucose 115 Calcium 8.8 Random Vancomycin Progress Note: A&P Assessment and plan (1) Acute on chronic diastolic (congestive) heart failure: Status: Acute (2) Persistent atrial fibrillation: Status: Acute (3) Pulmonary hypertension: Status: Acute (4) Acute respiratory failure with hypoxia: Status: Acute Assessment and Plan: Pertinent data reviewed. Cardiac BNP is 314. Previous value from December was 275. Lowest was 63 on 12/25/2020. Prior values are grossly similar. High sensitive troponin unremarkable. Potassium 4.5. Creatinine is 1.18. Hemoglobin 8.8. Chest x-ray reported to have prominent interstitial markings most consistent with edema. Chest CT scan reported to have no pulmonary embolism; small bilateral pleural effusions; ground-glass opacities which are nonspecific but could be from edema versus infection/inflammation. Last echocardiogram from June with LVEF 60-65%; moderately dilated left atrium and mild pulmonary hypertension with elevated right atrial pressures. We can treat him for acute on chronic diastolic heart failure. Agree with IV diuretics. Otherwise plan to repeat an echocardiogram. Follow-up tomorrow. Fall Risk Details Current Medications: Current Medications Generic Name Dose Route Start Last Admin Trade Name Freq PRN Reason Stop Dose Admin Acetaminophen 650 mg 01/20/21 05:55 01/21/21 00:36 Acetaminophen 325 Mg Tablet PO 650 mg Q6H PRN Administration Pain, Mild (Pain Scale 1-3) Amlodipine Besylate 10 mg 01/20/21 09:00 01/21/21 07:33 Amlodipine Besylate 10 Mg Tablet PO 10 mg DAILY BREE Administration Protocol Apixaban 5 mg 01/20/21 09:00 01/21/21 07:32 Apixaban 5 Mg Tablet PO 5 mg BID BREE Administration Ascorbic Acid 500 mg 01/20/21 09:00 01/21/21 07:34 Ascorbic Acid 500 Mg Tablet PO 500 mg BID BREE Administration Atenolol 25 mg 01/20/21 09:00 01/21/21 07:32 Atenolol 25 Mg Tablet PO 25 mg DAILY BREE Administration Protocol Atorvastatin Calcium 20 mg 01/20/21 09:00 01/21/21 07:34 Atorvastatin Calcium 20 Mg Tablet PO 20 mg DAILY BREE Administration Dextrose 25 gm 01/20/21 05:55 Dextrose 50 % 25 Gm/50 Ml Vial IVPUSH Q15M PRN per Hypoglycemia Standing Ord. Protocol Docusate Sodium 100 mg 01/20/21 05:55 Docusate Sodium 100 Mg Capsule PO DAILY PRN Constipation Ertapenem 1 gm 01/20/21 09:00 01/21/21 07:35 Ertapenem Sodium 1 Gm Vial IV 1 gm DAILY BREE Administration Fluoxetine HCl 20 mg 01/20/21 09:00 01/21/21 07:33 Fluoxetine Hcl 20 Mg Capsule PO 20 mg DAILY BREE Administration Furosemide 40 mg 01/20/21 09:00 01/21/21 07:34 Furosemide 40 Mg/4 Ml Vial IVPUSH 40 mg BID@0900,1800 BREE Administration Protocol Gabapentin 600 mg 01/20/21 21:00 01/20/21 20:29 Gabapentin 600 Mg Tablet PO Not Given BEDTIME BREE Glucose 15 gm 01/20/21 05:55 Glucose Gel 15 Gm Gel..Gram. PO Q15M PRN per Hypoglycemia Standing Ord. Protocol Insulin Human Lispro 0 unit 01/20/21 07:30 01/21/21 07:17 Insulin Lispro 100 Unit/Ml 3 Ml Vial SUBCUT Not Given QIDACHS [facility] Protocol Ondansetron HCl 4 mg 01/20/21 05:55 Ondansetron Hcl 4 Mg/2 Ml Vial IVPUSH Q8H PRN Nausea and Vomiting Oxycodone HCl 5 mg 01/20/21 11:34 Oxycodone Hcl Immed Release 5 Mg Tablet PO Q6H PRN Pain, Mild (Pain Scale 1-3) Potassium Chloride 20 meq 01/20/21 21:00 01/20/21 20:29 Potassium Chloride Er 20 Meq Tab.Er.Prt PO 20 meq BEDTIME BREE Administration Risperidone 0.25 mg 01/20/21 21:00 01/20/21 20:29 Risperidone 0.25 Mg Tablet PO 0.25 mg BEDTIME BREE Administration Sodium Chloride 5 ml 01/20/21 09:00 01/21/21 07:36 0.9 % Sodium Chloride Flush 10 Ml Syringe IVFLUSH 5 ml TID BREE Administration Sodium Chloride 3 ml 01/20/21 08:00 01/20/21 20:31 0.9 % Sodium Chloride Flush 3 Ml Syringe IVFLUSH 3 ml QSHIFT BREE Administration Tamsulosin HCl 0.4 mg 01/20/21 17:00 01/20/21 16:50 Tamsulosin Hcl 0.4 Mg Capsule PO 0.4 mg DAILY@1700 BREE Administration Vancomycin HCl 500 mg 01/20/21 09:00 01/20/21 10:00 Vancomycin Hcl 500 Mg/10 Ml Vial IV 500 mg DAILY BREE Administration Vitamin D 25 mcg 01/20/21 09:00 01/21/21 07:32 Cholecalciferol (Vitamin D3) 25 Mcg Tablet PO 25 mcg DAILY BREE Administration Time Spent With Patient Time: Total time spent is greater than 50% in coordination of care (as documented) at patient's floor/unit and/or counseling patient: Time with patient: less than 15 minutes Progress Note: Quality Stroke Does the patient have a stroke diagnosis?: No Procedures Date of Service Date of Service: 01/21/21
--- NOTE | 2021-01-21 09:52 | P.CDIC_ITS ---
CDI Concurrent Query Service Date: 01/21/21 Documentation Clarification: Please clarify if you are treating a proba ble/suspected/likely or confirmed: please clarify in the Progress Notes further specificity regarding the type of Osteomyelitis. Also include specific site with laterality and known or suspected infectious agent: -Acute osteomyelitis -Acute hematogenous osteomyelitis -Subacute osteomyelitis -Chronic osteomyelitis -Chronic hemotogenous osteomyelitis -Chronis multifocal osteomyelitis -Chronic osteomyelitis with draining sinus -Enrrique's abscess -Osteomyelitis -Periostitis without osteomyelitis -Other: -Unable to determine Use of terms such as suspected, likely, concern for, or probable (associated with a specific diagnosis that is being evaluated, monitored, or treated as if it exists) are acceptable and can be coded in the inpatient setting, when documented at the time of discharge. Provider Response: Other Other Diagnosis: Unclear PLEASE DO NOT DELETE/MODIFY EXISTING CONTENT Additional information is needed in order to code to the highest accuracy and appropriate Severity of Illness (SOI). Please clarify the information noted below in your progress notes and discharge summary. Risk Factors/Clinical Indicators/Treatments discharged from [facility] with Osteomyelitis has PICC for antibiotic therapy for osteomyletis left foot on 01/02/21 CDS: Valentina Lawrence RN Contact Number: [phone] Please Review the information above and exercise your independent professional judgment in responding to the query. If you concur, pleas document in the PROGRESS NOTES and DISCHARGE SUMMARY. If you do not agree with the query, please document in the query above. THIS QUERY IS PART OF THE PERMANENT MEDICAL RECORD
[2021-01-21] MEDS: 0.9 % Sodium Chloride Flush 3 ML SYRINGE IVFLUSH ×2 (10:13→17:07)
[2021-01-21 11:00] VITALS: BP 152/78; PULSE 69; RESP 20; TEMP 36.1; O2SAT 90
--- NOTE | 2021-01-21 11:22 | HO.PM.IMPN ---
Subjective Subjective Date of Service: 01/21/21 Interval History: seen and examined this AM no new issues reported remains confused Review of Systems General - no fevers or chills Cardiovascular - no chest pain Respiratory - no shortness of breath or cough Abdominal- no abdominal pain, nausea, vomiting, diarrhea Physical Exam Vital Signs: Vital Signs: Last Vital Signs Temp 97 F 01/21/21 11:00 Pulse 69 01/21/21 11:00 Resp 20 01/21/21 11:00 BP 152/78 H 01/21/21 11:00 Pulse Ox 90 L 01/21/21 11:00 Oxygen Flow Rate 15 01/19/21 23:21 Body Mass Index 29.9 Const: Other: General - no acute distress, appears comfortable Cardiovascular - regular rate and rhythm, S1-S2 Lungs - normal respiratory effort, clear to auscultation bilaterally, no wheezing Abdomen - soft, nontender, no rebound or guarding Extremities - 1+ edema Neuro - awake and alert, no focal deficits Objective Data Current Medications Generic Name Dose Route Start Last Admin Trade Name Josephq PRN Reason Stop Dose Admin Acetaminophen 650 mg 01/20/21 05:55 01/21/21 00:36 Acetaminophen 325 Mg Tablet PO 650 mg Q6H PRN Administration Pain, Mild (Pain Scale 1-3) Amlodipine Besylate 10 mg 01/20/21 09:00 01/21/21 07:33 Amlodipine Besylate 10 Mg Tablet PO 10 mg DAILY BREE Administration Protocol Apixaban 5 mg 01/20/21 09:00 01/21/21 07:32 Apixaban 5 Mg Tablet PO 5 mg BID BREE Administration Ascorbic Acid 500 mg 01/20/21 09:00 01/21/21 07:34 Ascorbic Acid 500 Mg Tablet PO 500 mg BID BREE Administration Atenolol 25 mg 01/20/21 09:00 01/21/21 07:32 Atenolol 25 Mg Tablet PO 25 mg DAILY BREE Administration Protocol Atorvastatin Calcium 20 mg 01/20/21 09:00 01/21/21 07:34 Atorvastatin Calcium 20 Mg Tablet PO 20 mg DAILY BREE Administration Dextrose 25 gm 01/20/21 05:55 Dextrose 50 % 25 Gm/50 Ml Vial IVPUSH Q15M PRN per Hypoglycemia Standing Ord. Protocol Docusate Sodium 100 mg 01/20/21 05:55 Docusate Sodium 100 Mg Capsule PO DAILY PRN Constipation Ertapenem 1 gm 01/20/21 09:00 01/21/21 07:35 Ertapenem Sodium 1 Gm Vial IV 1 gm DAILY BREE Administration Fluoxetine HCl 20 mg 01/20/21 09:00 01/21/21 07:33 Fluoxetine Hcl 20 Mg Capsule PO 20 mg DAILY BREE Administration Furosemide 40 mg 01/20/21 09:00 01/21/21 07:34 Furosemide 40 Mg/4 Ml Vial IVPUSH 40 mg BID@0900,1800 BREE Administration Protocol Gabapentin 600 mg 01/20/21 21:00 01/20/21 20:29 Gabapentin 600 Mg Tablet PO Not Given BEDTIME BREE Glucose 15 gm 01/20/21 05:55 Glucose Gel 15 Gm Gel..Gram. PO Q15M PRN per Hypoglycemia Standing Ord. Protocol Insulin Human Lispro 0 unit 01/20/21 07:30 01/21/21 07:17 Insulin Lispro 100 Unit/Ml 3 Ml Vial SUBCUT Not Given QIDACHS [facility] Protocol Ondansetron HCl 4 mg 01/20/21 05:55 Ondansetron Hcl 4 Mg/2 Ml Vial IVPUSH Q8H PRN Nausea and Vomiting Oxycodone HCl 5 mg 01/20/21 11:34 Oxycodone Hcl Immed Release 5 Mg Tablet PO Q6H PRN Pain, Mild (Pain Scale 1-3) Potassium Chloride 20 meq 01/20/21 21:00 01/20/21 20:29 Potassium Chloride Er 20 Meq Tab.Er.Prt PO 20 meq BEDTIME BREE Administration Risperidone 0.25 mg 01/20/21 21:00 01/20/21 20:29 Risperidone 0.25 Mg Tablet PO 0.25 mg BEDTIME BREE Administration Sodium Chloride 5 ml 01/20/21 09:00 01/21/21 07:36 0.9 % Sodium Chloride Flush 10 Ml Syringe IVFLUSH 5 ml TID BREE Administration Sodium Chloride 3 ml 01/20/21 08:00 01/21/21 10:13 0.9 % Sodium Chloride Flush 3 Ml Syringe IVFLUSH 3 ml QSHIFT BREE Administration Tamsulosin HCl 0.4 mg 01/20/21 17:00 01/20/21 16:50 Tamsulosin Hcl 0.4 Mg Capsule PO 0.4 mg DAILY@1700 BREE Administration Vancomycin HCl 500 mg 01/20/21 09:00 01/21/21 10:14 Vancomycin Hcl 500 Mg/10 Ml Vial IV 500 mg DAILY BREE Administration Vitamin D 25 mcg 01/20/21 09:00 01/21/21 07:32 Cholecalciferol (Vitamin D3) 25 Mcg Tablet PO 25 mcg DAILY RBEE Administration Labs CBC & Chem 7: 01/21/21 08:05 01/21/21 08:05 Labs: Laboratory Results - last 24 hr 01/20/21 01/20/21 01/20/21 11:15 12:58 16:07 MCV MCH MCHC RDW Plt Count MPV Immature Gran % (Auto) Neut % (Auto) Lymph % (Auto) [place] % (Auto) Eos % (Auto) Baso % (Auto) Lymph # (Auto) [place] # (Auto) Eos # (Auto) Baso # (Auto) Abs Immat Gran (auto) Absolute Neuts (auto) Absolute Nucleated RBC Nucleated RBC % (auto) Anion Gap Estim Creat Clear Calc Estimated GFR POC Glucose 136 H 153 H 125 H Random Glucose Calcium Random Vancomycin 01/20/21 01/21/21 01/21/21 20:01 06:51 08:05 MCV MCH MCHC RDW Plt Count MPV Immature Gran % (Auto) Neut % (Auto) Lymph % (Auto) [place] % (Auto) Eos % (Auto) Baso % (Auto) Lymph # (Auto) [place] # (Auto) Eos # (Auto) Baso # (Auto) Abs Immat Gran (auto) Absolute Neuts (auto) Absolute Nucleated RBC Nucleated RBC % (auto) Anion Gap Estim Creat Clear Calc Estimated GFR POC Glucose 147 H 109 Random Glucose Calcium Random Vancomycin 19.1 01/21/21 01/21/21 08:05 08:05 MCV 85.3 MCH 25.4 L MCHC 29.8 L RDW 16.2 H Plt Count 233 MPV 10.4 Immature Gran % (Auto) 0.4 Neut % (Auto) 77.7 H Lymph % (Auto) 9.0 L [place] % (Auto) 10.2 Eos % (Auto) 2.4 Baso % (Auto) 0.3 Lymph # (Auto) 0.6 L [place] # (Auto) 0.7 Eos # (Auto) 0.2 Baso # (Auto) 0.0 Abs Immat Gran (auto) 0.03 Absolute Neuts (auto) 5.4 Absolute Nucleated RBC 0.000 Nucleated RBC % (auto) 0.0 Anion Gap 13 Estim Creat Clear Calc 67.1 Estimated GFR > 60 POC Glucose Random Glucose 115 Calcium 8.8 Random Vancomycin Microbiology Microbiology Results: Microbiology 01/19/21 23:32 Blood Culture - Preliminary Blood - Venous No growth after 24 hours. 01/19/21 23:31 Blood Culture - Preliminary Blood - Venous No growth after 24 hours. Assessment and Plan (1) Acute on chronic diastolic (congestive) heart failure: Status: Acute Assessment and Plan: This is an 85 year-old man with DM2 with neuropathy and peripheral arterial disease with history of right BKA, recent admission for infected ulcers of the left foot/osteomyelitis admitted for respiratory failure in the setting of CHF acute on chronic respiratory failure r/t acute on chronic HF due to CHF, see details below wean o2 to baseline as tolerated Acute on chronic CHF IV diuretics, i/o echo today cardiology on board Acute toxic/metabolic encephalopathy possibly secondary to recent hospitalization as well as acute disease versus polypharmacy brain CT negative for acute findings, has chronic infarct pt confused on last admission as well.? Family reports no confusion at baseline - they think confusion secondary to pain medication -will decrease frequency of oxycodone, gabapentin dose decreased -may need further medication adjustment Osteomyelitis left foot, diagnosed last admission -continue vancomycin, ertapenem DM continue current meds A. Fib rates controlled continue eliquis / atenolol continue other baseline meds Quality Stroke Does the patient have a stroke diagnosis?: No VTE Prior VTE?: No VTE Risk Level:: Medical - moderate - high VTE Device Contraindication: Treatment Not Indicated VTE Drug Contraindication: N/A - Med Ordered
[2021-01-21 12:15] VITALS: BMI 29.9
--- NOTE | 2021-01-21 12:24 | MHC.CLN ---
RE: CONSULT PT WITH INCREASED NUTRITION RISK R/T PRESSURE INJURIES DIET RX: 1800DM 2GM NA -APPROPRIATE RECOMMEND ADDING GLUCERNA TID AND ARLENE BID TO INCREASE KCALS AND PROMOTE WOUND HEALING SUPPLEMENTS PROVIDE 871KCALS, 35G PROTEIN MONITOR PO INTAKE CLOSELY SEE ALSO CLINICAL NUTRITION ASSESSMENT
--- NOTE | 2021-01-21 14:56 | W.PM.IDCN ---
History of Present Illness Data of Consult Service Date: 01/21/21 Requesting physician: Esperanza Palomo Primary Care Provider: Thomas Gant MD [facility] Reason for consult: shortness of breath He presents with shortness of breath from nursing facility for a day He has no fever or chills or leukocytosis He has had confusion He is on Ertapenem and Vancomycin,due to finish in 2 1/2 weeks on 02/09 Toe is about the same Review of Systems Review of Systems: Yes all other systems are reviewed and are negative [facility] Past Medical History Medical History (Updated 02/01/21 @ 00:02 by Background Daemon) Acute and chronic respiratory failure with hypercapnia Acute on chronic diastolic (congestive) heart failure Afib Alcoholic cardiomyopathy BPH (benign prostatic hyperplasia) CHF (congestive heart failure) CHF exacerbation COPD (chronic obstructive pulmonary disease) COVID-19 Diabetes 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 Father No problems noted. Son No problems noted. Son No problems noted. Son No problems noted. Son No problems noted. Daughter No problems noted. Daughter No problems noted. Daughter No problems noted. Surgical History Surgical History H/O abdominal surgery H/O angioplasty H/O cataract extraction Hx of BKA Social History Social History Household Members: Other Housing: Detention Do you presently have visiting nurse or other home services: No Alcohol intake: never Patient Tobacco Use Status: Never used Tobacco Advance Directives Date on File: 03/28/20 service: No Current occupational status: retired Meds Allergies Allergy/AdvReac Type Severity Reaction Status Date / Time bee pollen [BEE STINGS] Allergy Severe ANAPHYLAXIS Verified 07/04/20 13:06 doxycycline [DOXYCYCLINE] Allergy Unknown ? ALLERGY Verified 07/04/20 13:06 PER INTERVENTIONAL RADIOLOGY TECHNOLOGIST [place] Allergy Mild ITCHING Uncoded 03/28/20 19:48 bee venom Allergy Unknown unspecified Uncoded 03/28/20 19:48 sardines Allergy Unknown itching Uncoded 03/28/20 19:48 Active Medications: Current Medications Generic Name Dose Route Start Last Admin Trade Name Freq PRN Reason Stop Dose Admin Acetaminophen 650 mg 01/20/21 05:55 01/21/21 00:36 Acetaminophen 325 Mg Tablet PO 650 mg Q6H PRN Administration Pain, Mild (Pain Scale 1-3) Amlodipine Besylate 10 mg 01/20/21 09:00 01/21/21 07:33 Amlodipine Besylate 10 Mg Tablet PO 10 mg DAILY BREE Administration Protocol Apixaban 5 mg 01/20/21 09:00 01/21/21 07:32 Apixaban 5 Mg Tablet PO 5 mg BID BREE Administration Ascorbic Acid 500 mg 01/20/21 09:00 01/21/21 07:34 Ascorbic Acid 500 Mg Tablet PO 500 mg BID BREE Administration Atenolol 25 mg 01/20/21 09:00 01/21/21 07:32 Atenolol 25 Mg Tablet PO 25 mg DAILY BREE Administration Protocol Atorvastatin Calcium 20 mg 01/20/21 09:00 01/21/21 07:34 Atorvastatin Calcium 20 Mg Tablet PO 20 mg DAILY BREE Administration Dextrose 25 gm 01/20/21 05:55 Dextrose 50 % 25 Gm/50 Ml Vial IVPUSH Q15M PRN per Hypoglycemia Standing Ord. Protocol Docusate Sodium 100 mg 01/20/21 05:55 Docusate Sodium 100 Mg Capsule PO DAILY PRN Constipation Ertapenem 1 gm 01/20/21 09:00 01/21/21 07:35 Ertapenem Sodium 1 Gm Vial IV 1 gm DAILY BREE Administration Fluoxetine HCl 20 mg 01/20/21 09:00 01/21/21 07:33 Fluoxetine Hcl 20 Mg Capsule PO 20 mg DAILY BREE Administration Furosemide 40 mg 01/20/21 09:00 01/21/21 07:34 Furosemide 40 Mg/4 Ml Vial IVPUSH 40 mg BID@0900,1800 BREE Administration Protocol Gabapentin 600 mg 01/20/21 21:00 01/20/21 20:29 Gabapentin 600 Mg Tablet PO Not Given BEDTIME BREE Glucose 15 gm 01/20/21 05:55 Glucose Gel 15 Gm Gel..Gram. PO Q15M PRN per Hypoglycemia Standing Ord. Protocol Insulin Human Lispro 0 unit 01/20/21 07:30 01/21/21 12:28 Insulin Lispro 100 Unit/Ml 3 Ml Vial SUBCUT Not Given QIDACHS [facility] Protocol Ondansetron HCl 4 mg 01/20/21 05:55 Ondansetron Hcl 4 Mg/2 Ml Vial IVPUSH Q8H PRN Nausea and Vomiting Oxycodone HCl 5 mg 01/20/21 11:34 Oxycodone Hcl Immed Release 5 Mg Tablet PO Q6H PRN Pain, Mild (Pain Scale 1-3) Potassium Chloride 20 meq 01/20/21 21:00 01/20/21 20:29 Potassium Chloride Er 20 Meq Tab.Er.Prt PO 20 meq BEDTIME BREE Administration Risperidone 0.25 mg 01/20/21 21:00 01/20/21 20:29 Risperidone 0.25 Mg Tablet PO 0.25 mg BEDTIME BREE Administration Sodium Chloride 5 ml 01/20/21 09:00 01/21/21 07:36 0.9 % Sodium Chloride Flush 10 Ml Syringe IVFLUSH 5 ml TID BREE Administration Sodium Chloride 3 ml 01/20/21 08:00 01/21/21 10:13 0.9 % Sodium Chloride Flush 3 Ml Syringe IVFLUSH 3 ml QSHIFT BREE Administration Tamsulosin HCl 0.4 mg 01/20/21 17:00 01/20/21 16:50 Tamsulosin Hcl 0.4 Mg Capsule PO 0.4 mg DAILY@1700 BREE Administration Vancomycin HCl 500 mg 01/20/21 09:00 01/21/21 10:14 Vancomycin Hcl 500 Mg/10 Ml Vial IV 500 mg DAILY BREE Administration Vitamin D 25 mcg 01/20/21 09:00 01/21/21 07:32 Cholecalciferol (Vitamin D3) 25 Mcg Tablet PO 25 mcg DAILY BREE Administration Home Medications Medication Instructions Recorded Confirmed Last Taken Type albuterol sulfate 90 mcg/actuation 2 puff PO Q4H PRN 03/28/20 01/25/21 Unknown History aerosol inhaler ascorbic acid (vitamin C) 500 mg 500 mg PO BID 03/28/20 01/25/21 Unknown History tablet (Vitamin C) cholecalciferol (vitamin D3) 25 25 mcg PO DAILY 03/28/20 01/25/21 Unknown History mcg (1,000 unit) tablet ferrous sulfate 325 mg (65 mg 325 mg PO BID 03/28/20 01/25/21 Unknown History iron) tablet melatonin 5 mg tablet 5 mg PO BEDTIME 03/28/20 01/25/21 Unknown History metformin 500 mg tablet 500 mg PO DAILY@1700 03/28/20 01/25/21 Unknown History potassium chloride 20 mEq 20 meq PO BEDTIME 03/28/20 01/25/21 Unknown History tablet,extended release(part/cryst) risperidone 0.25 mg tablet 0.25 mg PO BEDTIME 03/28/20 01/25/21 Unknown History tamsulosin 0.4 mg capsule 0.4 mg PO DAILY@1700 03/28/20 01/25/21 Unknown History amlodipine 10 mg tablet 1 tab PO DAILY 12/25/20 01/25/21 Unknown History chlorhexidine gluconate 4 % 1 appl TOPICAL DAILY 12/25/20 01/25/21 Unknown History topical liquid (Hibiclens) vancomycin 500 mg intravenous 500 mg IV DAILY 01/20/21 01/25/21 Unknown History solution acetaminophen 325 mg tablet (Mapap 650 mg PO Q6H PRN 01/25/21 01/25/21 Unknown History (acetaminophen)) ammonium lactate 12 % lotion 1 appl TOPICAL BID 01/25/21 01/25/21 Unknown History oxycodone 5 mg tablet 5 mg PO Q4H PRN 01/25/21 01/25/21 Unknown History Physical Exam Vital Signs: Vital Signs: Last Vital Signs Temp 97 F 01/21/21 11:00 Pulse 69 01/21/21 11:00 Resp 20 01/21/21 11:00 BP 152/78 H 01/21/21 11:00 Pulse Ox 90 L 01/21/21 11:00 Oxygen Flow Rate 15 01/19/21 23:21 Body Mass Index 29.9 Const: General: cooperative HENMT: Head: Yes normal to inspection Mouth: Normal oral and palatal mucosa present Eyes: General: appearance normal, both eyes and all related structures Resp: Effort & Inspection: normal respiratory effort Cardio: Rate: regular rate Rhythm: regular rhythm GI: Palpation (GI): Soft to palpation and nontender Skin: General skin exam: no rashes or lesions noted Results Labs CBC & Chem 7: 01/24/21 08:30 01/24/21 08:30 Labs: Short CBC 01/21/21 Range/Units 08:05 WBC 7.0 (4.8-10.8) X10*3/uL Hgb 8.8 L (14.0-18.0) g/dl Hct 29.5 L (42-52) % Plt Count 233 (160-400) X10*3/uL BMP 01/21/21 08:05 Sodium 140 Potassium 4.0 Chloride 102 Carbon Dioxide 29 BUN 21 H Creatinine 0.89 Calcium 8.8 Microbiology Microbiology Results: Microbiology 01/19/21 23:32 Blood - Venous Blood Culture - Preliminary No growth after 24 hours. 01/19/21 23:31 Blood - Venous Blood Culture - Preliminary No growth after 24 hours. 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
[2021-01-21 15:01] VITALS: BP 140/69; PULSE 91; RESP 20; TEMP 36.2; O2SAT 90
--- NOTE | 2021-01-21 15:37 | PC.NURSE ---
Skin/Wound assessment completed today. On admission it was noted patient had a stage 2 pressure ulcer to coccyx, grade 1 diabetic ulcer to top of left foot, grade 2 diabetic ulcer to left lateral great toe with eschar in middle of wound bed, stage 2 pressure ulcer to left heel. Triad applied to heel and lateral ulcer covered with foam dressing. Woundres' gel applied to top of foot cover with gauze and foam dressing. Betadine applied to necrotic areas on medial foot and top of great toe.
[2021-01-21 16:10] LABS: Glucose, Whole Blood 123 mg/dL (60-115)
[2021-01-21] MEDS: oxyCODONE HCl Immed Release 5 MG TABLET PO (16:30)
[2021-01-21] MEDS: Tamsulosin HCL 0.4 MG CAPSULE PO (17:05)
[2021-01-21 19:01] VITALS: BP 140/71; PULSE 67; RESP 20; TEMP 36.1; O2SAT 93
[2021-01-21 19:55] LABS: Glucose, Whole Blood 130 mg/dL (60-115)
[2021-01-21] MEDS: Gabapentin 600 MG TABLET PO (21:23)
[2021-01-22] VITALS (8 sets, daily range): BP systolic 133–160; BP diastolic 65–87; PULSE 56–70; RESP 18–20; TEMP 35.7–37.1; O2SAT 90–93
[2021-01-22 07:17] LABS: Glucose, Whole Blood 119 mg/dL (60-115)
[2021-01-22 07:49] LABS: Glucose, Whole Blood 116 mg/dL (60-115)
[2021-01-22 08:20] LABS: Creatinine Clr Calc Pharmacy 66.3; Estimated Glomerular Filt Rate > 60
[2021-01-22 08:26] LABS: Vancomycin Random 17.7 mcg/mL (15-20)
[2021-01-22] MEDS: Ascorbic Acid 500 MG TABLET PO (08:33)
[2021-01-22] MEDS: Atorvastatin Calcium 20 MG TABLET PO (08:33)
[2021-01-22] MEDS: Cholecalciferol (Vitamin D3) 25 MCG TABLET PO (08:34)
[2021-01-22] MEDS: atenoloL 25 MG TABLET PO (08:34)
[2021-01-22] MEDS: amLODIPine Besylate 10 MG TABLET PO (08:34)
[2021-01-22] MEDS: oxyCODONE HCl Immed Release 5 MG TABLET PO (08:38)
[2021-01-22] MEDS: Furosemide 40 MG/4 ML VIAL IVPUSH (08:40)
[2021-01-22] MEDS: Ertapenem Sodium 1 GM VIAL IV (08:42)
[2021-01-22 08:45] LABS: Anion Gap 11 (12-20); Blood Urea Nitrogen 22 mg/dL (9-16); Calcium 9.2 mg/dL (8.4-10.2); Carbon Dioxide 35 mmol/L (22-29); Chloride 99 mmol/L (96-108); Glucose Random 121 mg/dL (60-115); Potassium 3.9 mmol/L (3.3-5.1); Sodium 141 mmol/L (135-145)
[2021-01-22] MEDS: Apixaban 5 MG TABLET PO ×2 (08:48→20:21)
[2021-01-22] MEDS: FLUoxetine HCl 20 MG CAPSULE PO (08:48)
[2021-01-22] MEDS: 0.9 % Sodium Chloride Flush 10 ML SYRINGE 5 ML IVFLUSH ×3 (08:50→20:21)
[2021-01-22] MEDS: 0.9 % Sodium Chloride Flush 3 ML SYRINGE IVFLUSH ×4 (08:50→20:26)
--- NOTE | 2021-01-22 10:54 | P.PNIM_ITS ---
Subjective Subjective Date of Service: 01/22/21 Interval History: seen and examined this AM very sleepy this AM, per reports from RN -- was restless all night son and daughter bedside -- updates given ROS unreliable Physical Exam Vital Signs: Vital Signs: Last Vital Signs Temp 97.0 F 01/22/21 08:00 Pulse 66 01/22/21 08:34 Resp 20 01/22/21 08:00 BP 160/74 H 01/22/21 08:34 Pulse Ox 93 01/22/21 08:00 Oxygen Flow Rate 15 01/19/21 23:21 Body Mass Index 29.9 Const: Other: General - resting comfortably Cardiovascular - regular rate and rhythm, S1-S2 Lungs - normal respiratory effort, clear to auscultation bilaterally, no wheezing Abdomen - soft, non-tender, no rebound or guarding Extremities - 1+ edema Neuro - somnolent, but easily abusable; recgonizes his daughter / son who are bedside; no focal motor deficits appreciated Objective Data Current Medications Generic Name Dose Route Start Last Admin Trade Name Andreina PRN Reason Stop Dose Admin Acetaminophen 650 mg 01/20/21 05:55 01/21/21 16:31 Acetaminophen 325 Mg Tablet PO 650 mg Q6H PRN Administration Pain, Mild (Pain Scale 1-3) Amlodipine Besylate 10 mg 01/20/21 09:00 01/22/21 08:34 Amlodipine Besylate 10 Mg Tablet PO 10 mg DAILY BREE Administration Protocol Apixaban 5 mg 01/20/21 09:00 01/22/21 08:48 Apixaban 5 Mg Tablet PO 5 mg BID BREE Administration Atenolol 25 mg 01/20/21 09:00 01/22/21 08:34 Atenolol 25 Mg Tablet PO 25 mg DAILY BREE Administration Protocol Atorvastatin Calcium 20 mg 01/20/21 09:00 01/22/21 08:33 Atorvastatin Calcium 20 Mg Tablet PO 20 mg DAILY BREE Administration Dextrose 25 gm 01/20/21 05:55 Dextrose 50 % 25 Gm/50 Ml Vial IVPUSH Q15M PRN per Hypoglycemia Standing Ord. Protocol Docusate Sodium 100 mg 01/20/21 05:55 Docusate Sodium 100 Mg Capsule PO DAILY PRN Constipation Ertapenem 1 gm 01/20/21 09:00 01/22/21 08:42 Ertapenem Sodium 1 Gm Vial IV 1 gm DAILY BREE Administration Fluoxetine HCl 10 mg 01/23/21 09:00 Fluoxetine Hcl 20 Mg Capsule PO DAILY BREE Gabapentin 300 mg 01/22/21 21:00 Gabapentin 600 Mg Tablet PO BEDTIME BREE Glucose 15 gm 01/20/21 05:55 Glucose Gel 15 Gm Gel..Gram. PO Q15M PRN per Hypoglycemia Standing Ord. Protocol Insulin Human Lispro 0 unit 01/20/21 07:30 01/22/21 08:20 Insulin Lispro 100 Unit/Ml 3 Ml Vial SUBCUT Not Given QIDACHS [facility] Protocol Ondansetron HCl 4 mg 01/20/21 05:55 Ondansetron Hcl 4 Mg/2 Ml Vial IVPUSH Q8H PRN Nausea and Vomiting Oxycodone HCl 5 mg 01/20/21 11:34 01/22/21 08:38 Oxycodone Hcl Immed Release 5 Mg Tablet PO 5 mg Q6H PRN Administration Pain, Mild (Pain Scale 1-3) Potassium Chloride 20 meq 01/20/21 21:00 01/21/21 22:24 Potassium Chloride Er 20 Meq Tab.Er.Prt PO Not Given BEDTIME BREE Risperidone 0.25 mg 01/20/21 21:00 01/21/21 22:24 Risperidone 0.25 Mg Tablet PO Not Given BEDTIME BREE Sodium Chloride 5 ml 01/20/21 09:00 01/22/21 08:50 0.9 % Sodium Chloride Flush 10 Ml Syringe IVFLUSH 5 ml TID BREE Administration Sodium Chloride 3 ml 01/20/21 08:00 01/22/21 08:50 0.9 % Sodium Chloride Flush 3 Ml Syringe IVFLUSH 3 ml QSHIFT BREE Administration Tamsulosin HCl 0.4 mg 01/20/21 17:00 01/21/21 17:05 Tamsulosin Hcl 0.4 Mg Capsule PO 0.4 mg DAILY@1700 BREE Administration Vancomycin HCl 500 mg 01/20/21 09:00 01/22/21 08:48 Vancomycin Hcl 500 Mg/10 Ml Vial IV 500 mg DAILY BREE Administration Labs CBC & Chem 7: 01/21/21 08:05 01/22/21 07:41 Labs: Laboratory Results - last 24 hr 01/21/21 01/21/21 01/22/21 15:57 19:49 07:13 Anion Gap Estim Creat Clear Calc Estimated GFR POC Glucose 123 H 130 H 119 H Random Glucose Calcium Random Vancomycin 01/22/21 01/22/21 01/22/21 07:41 07:41 07:46 Anion Gap 11 L Estim Creat Clear Calc 66.3 Estimated GFR > 60 POC Glucose 116 H Random Glucose 121 H Calcium 9.2 Random Vancomycin 17.7 Microbiology Microbiology Results: Microbiology 01/19/21 23:32 Blood Culture - Preliminary Blood - Venous No growth after 48 hours. 01/19/21 23:31 Blood Culture - Preliminary Blood - Venous No growth after 48 hours. Assessment and Plan (1) Acute on chronic diastolic (congestive) heart failure: Status: Acute Assessment and Plan: This is an 85 year-old man with DM2 with neuropathy and peripheral arterial disease with history of right BKA, recent admission for infected ulcers of the left foot/osteomyelitis admitted for respiratory failure in the setting of CHF acute on chronic respiratory failure r/t acute on chronic HF due to CHF, see details below wean o2 to baseline as tolerated Acute on chronic CHF, likely diastolic change to oral lasix cardiology on board Acute toxic/metabolic encephalopathy possibly secondary to recent hospitalization as well as acute disease versus polypharmacy brain CT negative for acute findings, has chronic infarct pt confused on last admission as well.? Family reports no confusion at baseline - they think confusion secondary to pain medication continue decreasing gabapentin (AM doses d/'quang upon admission), will further decrease bedtime dose to 300 Osteomyelitis left foot, diagnosed last admission -continue vancomycin, ertapenem - End date: 02/09/21 DM continue current meds A. Fib rates controlled continue eliquis / atenolol continue other baseline meds Quality Stroke Does the patient have a stroke diagnosis?: No VTE Prior VTE?: No VTE Risk Level:: Medical - moderate - high VTE Device Contraindication: Treatment Not Indicated VTE Drug Contraindication: N/A - Med Ordered
[2021-01-22 11:06] LABS: Glucose, Whole Blood 176 mg/dL (60-115)
--- NOTE | 2021-01-22 11:06 | P.PNCA_ITS ---
Subjective Subjective Date of Service: 01/22/21 Interval history: Very sleepy today and not answering questions. spoke to family at bedside. Review of Systems Review of Systems Unable to obtain any review of systems due to patient's mental status. Physical Exam Vital Signs: Last Vital Signs Temp 97.0 F 01/22/21 08:00 Pulse 66 01/22/21 08:34 Resp 20 01/22/21 08:00 BP 160/74 H 01/22/21 08:34 Pulse Ox 93 01/22/21 08:00 Oxygen Flow Rate 15 01/19/21 23:21 Body Mass Index 29.9 Const General: cooperative and no acute distress HENPA Other: Unremarkable Neck Neck: Yes normal visual inspection Chest Chest palpation & inspection: normal inspection of the chest Resp Other: Bilateral basal crackles Cardio Jugular venous distension: no JVD Palpation: normal PMI Heart sounds: S1 normal heart sound present, S2 normal heart sound present, no gallops, no murmurs and no rubs GI Palpation (GI): Soft to palpation Back/Spine/Pelvis Other: unremarkable Skin General skin exam: no rashes or lesions noted Neuro Cranial nerves: Yes Other cranial nerve findings present Extrem Other: Right below-knee amputation; left side with some leg swelling but there is also dressing on left foot. Psych Mental Status: other Results Labs and Meds Result diagrams: 01/21/21 08:05 01/22/21 07:41 Lab results: Laboratory Results - last 24 hr 01/21/21 01/21/21 01/22/21 15:57 19:49 07:13 Sodium Potassium Chloride Carbon Dioxide Anion Gap BUN Creatinine Estim Creat Clear Calc Estimated GFR POC Glucose 123 H 130 H 119 H Random Glucose Calcium Random Vancomycin 01/22/21 01/22/21 01/22/21 07:41 07:41 07:46 Sodium 141 Potassium 3.9 Chloride 99 Carbon Dioxide 35 H Anion Gap 11 L BUN 22 H Creatinine 0.90 Estim Creat Clear Calc 66.3 Estimated GFR > 60 POC Glucose 116 H Random Glucose 121 H Calcium 9.2 Random Vancomycin 17.7 Progress Note: A&P Assessment and plan (1) Acute on chronic diastolic (congestive) heart failure: Status: Acute (2) Persistent atrial fibrillation: Status: Acute (3) Pulmonary hypertension: Status: Acute (4) Acute respiratory failure with hypoxia: Status: Acute Assessment and Plan: Pertinent data reviewed. Cardiac BNP is 314. Previous value from December was 275. Lowest was 63 on 12/25/2020. Prior values are grossly similar. High sensitive troponin unremarkable. Chest x-ray reported to have prominent interstitial markings most consistent with edema. Chest CT scan reported to have no pulm onary embolism; small bilateral pleural effusions; ground-glass opacities which are nonspecific but could be from edema versus infection/inflammation. Last echocardiogram from June with LVEF 60-65%; moderately dilated left atrium and mild pulmonary hypertension with elevated right atrial pressures. We can treat him for acute on chronic diastolic heart failure. Improved since admission. Change to PO diuretics. Discussed in detail with family regarding guarded prognosis. Echocardiogram: Conclusions: - The left ventricular systolic function is normal.? The visually estimated ejection fraction is between 55-60%. ? - The left atrium is severely dilated. ? - There is mild calcification of the aortic valve. ? - There is moderate anterior mitral leaflet thickening. There is mild mitral valve regurgitation. ? - There is mild tricuspid valve regurgitation. ? - Mild to moderate pulmonary hypertension is present.? Fall Risk Details Current Medications: Current Medications Generic Name Dose Route Start Last Admin Trade Name Freq PRN Reason Stop Dose Admin Acetaminophen 650 mg 01/20/21 05:55 01/21/21 16:31 Acetaminophen 325 Mg Tablet PO 650 mg Q6H PRN Administration Pain, Mild (Pain Scale 1-3) Amlodipine Besylate 10 mg 01/20/21 09:00 01/22/21 08:34 Amlodipine Besylate 10 Mg Tablet PO 10 mg DAILY BREE Administration Protocol Apixaban 5 mg 01/20/21 09:00 01/22/21 08:48 Apixaban 5 Mg Tablet PO 5 mg BID BREE Administration Atenolol 25 mg 01/20/21 09:00 01/22/21 08:34 Atenolol 25 Mg Tablet PO 25 mg DAILY BREE Administration Protocol Atorvastatin Calcium 20 mg 01/20/21 09:00 01/22/21 08:33 Atorvastatin Calcium 20 Mg Tablet PO 20 mg DAILY BREE Administration Dextrose 25 gm 01/20/21 05:55 Dextrose 50 % 25 Gm/50 Ml Vial IVPUSH Q15M PRN per Hypoglycemia Standing Ord. Protocol Docusate Sodium 100 mg 01/20/21 05:55 Docusate Sodium 100 Mg Capsule PO DAILY PRN Constipation Ertapenem 1 gm 01/20/21 09:00 01/22/21 08:42 Ertapenem Sodium 1 Gm Vial IV 1 gm DAILY BREE Administration Fluoxetine HCl 10 mg 01/23/21 09:00 Fluoxetine Hcl 20 Mg Capsule PO DAILY BREE Gabapentin 300 mg 01/22/21 21:00 Gabapentin 600 Mg Tablet PO BEDTIME BREE Glucose 15 gm 01/20/21 05:55 Glucose Gel 15 Gm Gel..Gram. PO Q15M PRN per Hypoglycemia Standing Ord. Protocol Insulin Human Lispro 0 unit 01/20/21 07:30 01/22/21 08:20 Insulin Lispro 100 Unit/Ml 3 Ml Vial SUBCUT Not Given QIDACHS [facility] Protocol Ondansetron HCl 4 mg 01/20/21 05:55 Ondansetron Hcl 4 Mg/2 Ml Vial IVPUSH Q8H PRN Nausea and Vomiting Oxycodone HCl 5 mg 01/20/21 11:34 01/22/21 08:38 Oxycodone Hcl Immed Release 5 Mg Tablet PO 5 mg Q6H PRN Administration Pain, Mild (Pain Scale 1-3) Potassium Chloride 20 meq 01/20/21 21:00 01/21/21 22:24 Potassium Chloride Er 20 Meq Tab.Er.Prt PO Not Given BEDTIME BREE Risperidone 0.25 mg 01/20/21 21:00 01/21/21 22:24 Risperidone 0.25 Mg Tablet PO Not Given BEDTIME BREE Sodium Chloride 5 ml 01/20/21 09:00 01/22/21 08:50 0.9 % Sodium Chloride Flush 10 Ml Syringe IVFLUSH 5 ml TID BREE Administration Sodium Chloride 3 ml 01/20/21 08:00 01/22/21 08:50 0.9 % Sodium Chloride Flush 3 Ml Syringe IVFLUSH 3 ml QSHIFT BREE Administration Tamsulosin HCl 0.4 mg 01/20/21 17:00 01/21/21 17:05 Tamsulosin Hcl 0.4 Mg Capsule PO 0.4 mg DAILY@1700 BREE Administration Vancomycin HCl 500 mg 01/20/21 09:00 01/22/21 08:48 Vancomycin Hcl 500 Mg/10 Ml Vial IV 500 mg DAILY BREE Administration Time Spent With Patient Time: Total time spent is greater than 50% in coordination of care (as documented) at patient's floor/unit and/or counseling patient: Time with patient: less than 15 minutes Progress Note: Quality Stroke Does the patient have a stroke diagnosis?: No Procedures Date of Service Date of Service: 01/22/21
[2021-01-22 11:37] LABS: Ammonia 42 umol/L (13-55)
[2021-01-22 16:11] LABS: Glucose, Whole Blood 119 mg/dL (60-115)
[2021-01-22 20:01] LABS: Glucose, Whole Blood 144 mg/dL (60-115)
[2021-01-22] MEDS: Potassium Chloride ER 20 MEQ TAB.ER.PRT PO (20:21)
[2021-01-22] MEDS: Gabapentin 600 MG TABLET 300 MG PO (20:22)
[2021-01-22] MEDS: risperiDONE 0.25 MG TABLET PO (20:26)
--- NOTE | 2021-01-22 23:10 | PC.NURSE ---
Addendum entered by Lela Miller RN 01/23/21 01:49: Another pause noted at 4.7 seconds, pt alert and asymptomatic. Original Note: Pt noted to have multiple pauses on the monitor with 4.9 seconds being the longest one so far. Pt assessed, alert and asymptomatic. Day shift RN reported that this pt has had pauses in the AM and HR dropped to the 30s periodically. Will continue to monitor.
[2021-01-23 04:00] VITALS: BP 168/88; PULSE 67; RESP 20; TEMP 36.7; O2SAT 92
[2021-01-23 05:04] VITALS: BMI 29.9
[2021-01-23 07:05] LABS: Glucose, Whole Blood 110 mg/dL (60-115)
[2021-01-23 07:40] VITALS: BP 154/79; PULSE 79; RESP 18; TEMP 36.3; O2SAT 94
[2021-01-23 09:05] LABS: Hematocrit 28.3 % (42-52); Hemoglobin 8.5 g/dl (14.0-18.0); Mean Corpuscular Volume 86.5 fL (80-98); Platelet Count 235 X10*3/uL (160-400); Red Blood Count 3.27 X10*6/uL (4.60-5.80); White Blood Count 7.2 X10*3/uL (4.8-10.8)
[2021-01-23] MEDS: 0.9 % Sodium Chloride Flush 10 ML SYRINGE 5 ML IVFLUSH ×3 (09:05→22:10)
[2021-01-23] MEDS: 0.9 % Sodium Chloride Flush 3 ML SYRINGE IVFLUSH (09:05)
[2021-01-23] MEDS: Ertapenem Sodium 1 GM VIAL IV (09:06)
[2021-01-23] MEDS: Apixaban 5 MG TABLET PO ×2 (09:11→22:10)
[2021-01-23] MEDS: atenoloL 25 MG TABLET PO (09:11)
[2021-01-23] MEDS: Atorvastatin Calcium 20 MG TABLET PO (09:11)
[2021-01-23] MEDS: amLODIPine Besylate 10 MG TABLET PO (09:11)
[2021-01-23 09:48] LABS: Anion Gap 8 (12-20); Blood Urea Nitrogen 24 mg/dL (9-16); Calcium 9.1 mg/dL (8.4-10.2); Carbon Dioxide 36 mmol/L (22-29); Chloride 99 mmol/L (96-108); Creatinine Clr Calc Pharmacy 73.6; Estimated Glomerular Filt Rate > 60; Glucose Random 112 mg/dL (60-115); Potassium 4.4 mmol/L (3.3-5.1); Sodium 139 mmol/L (135-145)
[2021-01-23 11:16] VITALS: BP 170/72; PULSE 71; RESP 19; TEMP 36.4; O2SAT 97
--- NOTE | 2021-01-23 11:18 | MHC.CM.PN ---
Per ROUNDS discussion, Patient is not yet medically cleared for dc (S/S Delirium).Returning to [facility] to complete STR is the goal for dc and CM will continue to follow for possible need to adjust the dc plan.
[2021-01-23 11:20] LABS: Glucose, Whole Blood 161 mg/dL (60-115)
[2021-01-23] MEDS: Insulin Lispro 100 UNIT/ML 3 ML VIAL SUBCUT (11:23)
--- NOTE | 2021-01-23 11:41 | HO.PM.IMPN ---
Subjective Subjective Date of Service: 01/23/21 Interval History: seen and examined this AM mentation slowly improving family bedside who agreee son and daughter bedside -- updates given ROS unreliable Review of Systems General - no fevers or chills Cardiovascular - no chest pain Respiratory - no shortness of breath or cough Abdominal- no abdominal pain, nausea, vomiting, diarrhea Physical Exam Vital Signs: Vital Signs: Last Vital Signs Temp 97.6 F 01/23/21 11:16 Pulse 71 01/23/21 11:16 Resp 19 01/23/21 11:16 BP 170/72 H 01/23/21 11:16 Pulse Ox 97 01/23/21 11:16 Oxygen Flow Rate 15 01/19/21 23:21 Body Mass Index 29.9 Const: Other: General - resting comfortably Cardiovascular - regular rate and rhythm, S1-S2 Lungs - normal respiratory effort, clear to auscultation bilaterally, no wheezing Abdomen - soft, non-tender, no rebound or guarding Extremities - 1+ edema Neuro - somnolent, but easily abusable; recgonizes his daughter / son who are bedside; no focal motor deficits appreciated Objective Data Current Medications Generic Name Dose Route Start Last Admin Trade Name Freq PRN Reason Stop Dose Admin Acetaminophen 650 mg 01/20/21 05:55 01/21/21 16:31 Acetaminophen 325 Mg Tablet PO 650 mg Q6H PRN Administration Pain, Mild (Pain Scale 1-3) Amlodipine Besylate 10 mg 01/20/21 09:00 01/23/21 09:11 Amlodipine Besylate 10 Mg Tablet PO 10 mg DAILY BREE Administration Protocol Apixaban 5 mg 01/20/21 09:00 01/23/21 09:11 Apixaban 5 Mg Tablet PO 5 mg BID BREE Administration Atenolol 25 mg 01/20/21 09:00 01/23/21 09:11 Atenolol 25 Mg Tablet PO 25 mg DAILY BREE Administration Protocol Atorvastatin Calcium 20 mg 01/20/21 09:00 01/23/21 09:11 Atorvastatin Calcium 20 Mg Tablet PO 20 mg DAILY BREE Administration Dextrose 25 gm 01/20/21 05:55 Dextrose 50 % 25 Gm/50 Ml Vial IVPUSH Q15M PRN per Hypoglycemia Standing Ord. Protocol Docusate Sodium 100 mg 01/20/21 05:55 Docusate Sodium 100 Mg Capsule PO DAILY PRN Constipation Ertapenem 1 gm 01/20/21 09:00 01/23/21 09:06 Ertapenem Sodium 1 Gm Vial IV 1 gm DAILY BREE Administration Fluoxetine HCl 10 mg 01/23/21 11:15 Fluoxetine Hcl 10 Mg Capsule PO DAILY BREE Gabapentin 300 mg 01/22/21 21:00 01/22/21 20:22 Gabapentin 600 Mg Tablet PO 300 mg BEDTIME BREE Administration Glucose 15 gm 01/20/21 05:55 Glucose Gel 15 Gm Gel..Gram. PO Q15M PRN per Hypoglycemia Standing Ord. Protocol Insulin Human Lispro 0 unit 01/20/21 07:30 01/23/21 11:23 Insulin Lispro 100 Unit/Ml 3 Ml Vial SUBCUT 2 unit QIDACHS BREE Administration Protocol Ondansetron HCl 4 mg 01/20/21 05:55 Ondansetron Hcl 4 Mg/2 Ml Vial IVPUSH Q8H PRN Nausea and Vomiting Oxycodone HCl 5 mg 01/20/21 11:34 01/22/21 08:38 Oxycodone Hcl Immed Release 5 Mg Tablet PO 5 mg Q6H PRN Administration Pain, Mild (Pain Scale 1-3) Potassium Chloride 20 meq 01/20/21 21:00 01/22/21 20:21 Potassium Chloride Er 20 Meq Tab.Er.Prt PO 20 meq BEDTIME BREE Administration Risperidone 0.25 mg 01/20/21 21:00 01/22/21 20:26 Risperidone 0.25 Mg Tablet PO 0.25 mg BEDTIME BREE Administration Sodium Chloride 5 ml 01/20/21 09:00 01/23/21 09:05 0.9 % Sodium Chloride Flush 10 Ml Syringe IVFLUSH 5 ml TID BREE Administration Sodium Chloride 3 ml 01/20/21 08:00 01/23/21 09:05 0.9 % Sodium Chloride Flush 3 Ml Syringe IVFLUSH 3 ml QSHIFT BREE Administration Tamsulosin HCl 0.4 mg 01/20/21 17:00 01/22/21 16:24 Tamsulosin Hcl 0.4 Mg Capsule PO Not Given DAILY@1700 BREE Vancomycin HCl 500 mg 01/20/21 09:00 01/23/21 09:58 Vancomycin Hcl 500 Mg/10 Ml Vial IV 500 mg DAILY BREE Administration Labs CBC & Chem 7: 01/23/21 08:49 01/23/21 08:49 Labs: Laboratory Results - last 24 hr 01/19/21 01/21/21 01/22/21 23:31 08:05 07:41 MCV MCH MCHC RDW Plt Count MPV Absolute Nucleated RBC Nucleated RBC % (auto) Carbon Dioxide 29 29 35 H Anion Gap Estim Creat Clear Calc Estimated GFR POC Glucose Random Glucose Calcium 01/22/21 01/22/21 01/23/21 16:05 19:55 07:01 MCV MCH MCHC RDW Plt Count MPV Absolute Nucleated RBC Nucleated RBC % (auto) Carbon Dioxide Anion Gap Estim Creat Clear Calc Estimated GFR POC Glucose 119 H 144 H 110 Random Glucose Calcium 01/23/21 01/23/21 01/23/21 08:49 08:49 11:13 MCV 86.5 MCH 26.0 L MCHC 30.0 L RDW 16.0 Plt Count 235 MPV 10.0 Absolute Nucleated RBC 0.000 Nucleated RBC % (auto) 0.0 Carbon Dioxide 36 H Anion Gap 8 L Estim Creat Clear Calc 73.6 Estimated GFR > 60 POC Glucose 161 H Random Glucose 112 Calcium 9.1 Assessment and Plan (1) Acute on chronic diastolic (congestive) heart failure: Status: Acute Assessment and Plan: This is an 85 year-old man with DM2 with neuropathy and peripheral arterial disease with history of right BKA, recent admission for infected ulcers of the left foot/osteomyelitis admitted for respiratory failure in the setting of CHF acute on chronic respiratory failure r/t acute on chronic HF due to CHF, see details below wean o2 to baseline as tolerated Acute on chronic CHF, likely diastolic change to oral lasix cardiology on board Acute toxic/metabolic encephalopathy possibly secondary to recent hospitalization as well as acute disease versus polypharmacy brain CT negative for acute findings, has chronic infarct pt confused on last admission as well.? Family reports no confusion at baseline - they think confusion secondary to pain medication continue decreasing gabapentin (AM doses d/'quang upon admission), bedtim 300mg continue non-pharmacological mangement of delirium; will check vbg now Osteomyelitis left foot, diagnosed last admission -continue vancomycin, ertapenem - End date: 02/09/21 DM continue current meds A. Fib rates controlled continue eliquis / atenolol continue other baseline meds dispo: back to SNF once mentation improved, possibly next 1-2 days Quality Stroke Does the patient have a stroke diagnosis?: No VTE Prior VTE?: No VTE Risk Level:: Medical - moderate - high VTE Device Contraindication: Treatment Not Indicated VTE Drug Contraindication: N/A - Med Ordered
--- NOTE | 2021-01-23 11:58 | MHC.CLN ---
F/U PO INTAKE VARIABLE DIET RX: 1800DM 2GM NA -APPROPRIATE PT RECEIVING GLUCERNA TID AND ARLENE BID TO INCREASE KCALS AND PROMOTE WOUND HEALING SUPPLEMENTS PROVIDE 871KCALS, 35G PROTEIN CONTINUE TO MONITOR PO INTAKE CLOSELY
[2021-01-23 12:33] LABS: VBG Base Excess 13.6 mmol/L; VBG HCO3 41 mmol/L (22-26); VBG pCO2 67 mmHg; VBG pH 7.39 (7.32-7.43); VBG pO2 76 mmHg
[2021-01-23 12:38] LABS: Venous Blood Gas Refer to POC result
[2021-01-23] MEDS: FLUoxetine HCl 10 MG CAPSULE PO (13:38)
--- NOTE | 2021-01-23 15:21 | PC.NURSE ---
1300 c/o feeling SOB HOB elevated. lungs dim. 02 at 3L via N/C. SAT 88=93%. 02 monitor applied.
[2021-01-23 15:44] VITALS: BP 167/77; PULSE 64; RESP 24; TEMP 36.4; O2SAT 88
[2021-01-23 16:36] LABS: Glucose, Whole Blood 137 mg/dL (60-115)
[2021-01-23] MEDS: Tamsulosin HCL 0.4 MG CAPSULE PO ×2 (16:56→17:01)
[2021-01-23] MEDS: Acetaminophen 325 MG TABLET 650 MG PO (17:01)
[2021-01-23 19:46] VITALS: BP 152/77; PULSE 55; RESP 20; TEMP 36.4; O2SAT 90
[2021-01-23 21:13] LABS: Glucose, Whole Blood 126 mg/dL (60-115)
[2021-01-23] MEDS: risperiDONE 0.25 MG TABLET PO (22:10)
[2021-01-23] MEDS: Gabapentin 600 MG TABLET 300 MG PO (22:11)
[2021-01-24] VITALS (7 sets, daily range): BP systolic 136–173; BP diastolic 60–78; PULSE 56–69; RESP 18–20; TEMP 35.8–36.4; O2SAT 87–99; BMI 31.1
[2021-01-24] MEDS: oxyCODONE HCl Immed Release 5 MG TABLET PO (00:50)
[2021-01-24] MEDS: Furosemide 40 MG/4 ML VIAL IVPUSH (04:24)
--- NOTE | 2021-01-24 05:35 | PC.NURSE ---
12 mn vs o2 sat 87-90 % not maintaining 90% md notified order rcd for lasix 40 mg iv push and order was for oxygen for venti mask
[2021-01-24 07:16] LABS: Glucose, Whole Blood 128 mg/dL (60-115)
[2021-01-24] MEDS: FLUoxetine HCl 10 MG CAPSULE PO (08:07)
[2021-01-24] MEDS: Apixaban 5 MG TABLET PO (08:07)
[2021-01-24] MEDS: atenoloL 25 MG TABLET PO (08:07)
[2021-01-24] MEDS: Atorvastatin Calcium 20 MG TABLET PO (08:07)
[2021-01-24] MEDS: amLODIPine Besylate 10 MG TABLET PO (08:07)
[2021-01-24] MEDS: 0.9 % Sodium Chloride Flush 3 ML SYRINGE IVFLUSH (08:08)
[2021-01-24] MEDS: 0.9 % Sodium Chloride Flush 10 ML SYRINGE 5 ML IVFLUSH (08:08)
[2021-01-24] MEDS: Ertapenem Sodium 1 GM VIAL IV (09:33)
[2021-01-24 09:38] LABS: Hematocrit 28.6 % (42-52); Hemoglobin 8.5 g/dl (14.0-18.0); Mean Corpuscular HGB Conc 29.7 g/dl (31.0-36.0); Mean Corpuscular Hemoglobin 25.9 pg (27.0-33.0); Mean Corpuscular Volume 87.2 fL (80-98); Mean Platelet Volume 10.2 fL (9.4-12.4); Platelet Count 232 X10*3/uL (160-400); Red Blood Count 3.28 X10*6/uL (4.60-5.80); Red Cell Distribution Width 15.9 % (11.0-16.0); White Blood Count 5.4 X10*3/uL (4.8-10.8)
--- NOTE | 2021-01-24 09:41 | P.CONPL_ITS ---
History of Present Illness History of Present Illness Consult date: 01/24/21 Chief complaint: Acute hypoxic resp failure Narrative: 85-year-old male with past medical history of AFib, diabetes, COPD, alcoholic cardiomyopathy, diabetic osteomyelitis status post right BKA, as well as recent osteomyelitis currently on IV antibiotics, PAD who is brought into the hospital from [facility] after being found hypoxic.??He went to the wound clinic and felt that he was very confused, he could not hold a conversation, he was talking but not making any sense.? The wound clinic nurse as well as the daughter felt that this may be secondary to his medications including gabapentin and oxycodone and therefore she requested change in his medications.? But according to the daughter patient became hypoxic in the afternoon and by evening he was very worsened therefore was brought into the hospital.? The patient was admitted to the [facility] Emergency Department where he was placed on IV antibiotics for osteomyelitis. In addition to that he did have a CT scan of the chest that was personally viewed by me without any evidence of any airspace disease. Likely a component of bronchitis or aspiration pneumonitis. Still the antibiotics that he is taking for the osteomyelitis is covering the respiratory tract. Is been described that he has been having cardiac pauses. At home he does have oxygen but he does not use it. He has not had a sleep study. He does have issues with mentation and also daytime drowsiness. Is not on reasonable for him to undergo inpatient lab study once he completes all the antibiotics at the rehab. In the meantime should be using the oxygen at [facility]. Review of Systems Review of Systems: Unable to obtain any review of systems due to patient's mental status. [facility] Past Medical History Medical History (Updated 01/24/21 @ 09:45 by Ervin Camacho MD) Afib Alcoholic cardiomyopathy BPH (benign prostatic hyperplasia) COPD (chronic obstructive pulmonary disease) COVID-19 Diabetes Diabetic osteomyelitis Foot ulcer Hyperlipidemia BARBARA (obstructive sleep apnea) PAD (peripheral artery disease) Prostate cancer Family History Family History Mother No problems noted. Father No problems noted. Son No problems noted. Son No problems noted. Son No problems noted. Son No problems noted. Daughter No problems noted. Daughter No problems noted. Daughter No problems noted. Surgical History Surgical History H/O abdominal surgery H/O angioplasty H/O cataract extraction Hx of BKA Social History Social History Household Members: None Housing: [facility] Do you presently have visiting nurse or other home services: Yes Alcohol intake: never Patient Tobacco Use Status: Never used Tobacco Use of substances other than those prescribed or required for medical reasons: No Currently Displaying Signs/Symptoms of Drug Intoxication Withdrawal: No Have you been hit, kicked, punched, or otherwise hurt by someone within the past year? If so, by whom?: No Do you feel safe in your current relationship?: No Is there a partner from a previous relationship who is making you feel unsafe now?: No Are you made to feel afraid or neglected: No Spiritual Healthcare Practices: none Voodoo Healthcare Practices: none Cultural Healthcare Practices: none Advance Directives: Yes Advance Directives on File: Yes Advance Directives Date on File: 03/28/20 Do you have thoughts of harming others: None Do you have a plan to hurt others: No Plan Recently lost weight without trying: Unsure service: No Current occupational status: retired Meds Allergies Allergy/AdvReac Type Severity Reaction Status Date / Time bee pollen [BEE STINGS] Allergy Severe ANAPHYLAXIS Verified 07/04/20 13:06 doxycycline [DOXYCYCLINE] Allergy Unknown ? ALLERGY Verified 07/04/20 13:06 PER [facility] [place] Allergy Mild ITCHING Uncoded 03/28/20 19:48 bee venom Allergy Unknown unspecified Uncoded 03/28/20 19:48 sardines Allergy Unknown itching Uncoded 03/28/20 19:48 Active Medications: Current Medications Generic Name Dose Route Start Last Admin Trade Name Freq PRN Reason Stop Dose Admin Acetaminophen 650 mg 01/20/21 05:55 01/23/21 17:01 Acetaminophen 325 Mg Tablet PO 650 mg Q6H PRN Administration Pain, Mild (Pain Scale 1-3) Amlodipine Besylate 10 mg 01/20/21 09:00 01/24/21 08:07 Amlodipine Besylate 10 Mg Tablet PO 10 mg DAILY BREE Administration Protocol Apixaban 5 mg 01/20/21 09:00 01/24/21 08:07 Apixaban 5 Mg Tablet PO 5 mg BID BREE Administration Atenolol 25 mg 01/20/21 09:00 01/24/21 08:07 Atenolol 25 Mg Tablet PO 25 mg DAILY BREE Administration Protocol Atorvastatin Calcium 20 mg 01/20/21 09:00 01/24/21 08:07 Atorvastatin Calcium 20 Mg Tablet PO 20 mg DAILY BREE Administration Dextrose 25 gm 01/20/21 05:55 Dextrose 50 % 25 Gm/50 Ml Vial IVPUSH Q15M PRN per Hypoglycemia Standing Ord. Protocol Docusate Sodium 100 mg 01/20/21 05:55 Docusate Sodium 100 Mg Capsule PO DAILY PRN Constipation Ertapenem 1 gm 01/20/21 09:00 01/24/21 09:33 Ertapenem Sodium 1 Gm Vial IV 1 gm DAILY BREE Administration Fluoxetine HCl 10 mg 01/23/21 11:15 01/24/21 08:07 Fluoxetine Hcl 10 Mg Capsule PO 10 mg DAILY BREE Administration Gabapentin 300 mg 01/22/21 21:00 01/23/21 22:11 Gabapentin 600 Mg Tablet PO 300 mg BEDTIME BREE Administration Glucose 15 gm 01/20/21 05:55 Glucose Gel 15 Gm Gel..Gram. PO Q15M PRN per Hypoglycemia Standing Ord. Protocol Insulin Human Lispro 0 unit 01/20/21 07:30 01/24/21 07:43 Insulin Lispro 100 Unit/Ml 3 Ml Vial SUBCUT Not Given QIDACHS [facility] Protocol Ondansetron HCl 4 mg 01/20/21 05:55 Ondansetron Hcl 4 Mg/2 Ml Vial IVPUSH Q8H PRN Nausea and Vomiting Oxycodone HCl 5 mg 01/20/21 11:34 01/24/21 00:50 Oxycodone Hcl Immed Release 5 Mg Tablet PO 5 mg Q6H PRN Administration Pain, Mild (Pain Scale 1-3) Risperidone 0.25 mg 01/20/21 21:00 01/23/21 22:10 Risperidone 0.25 Mg Tablet PO 0.25 mg BEDTIME BREE Administration Sodium Chloride 5 ml 01/20/21 09:00 01/24/21 08:08 0.9 % Sodium Chloride Flush 10 Ml Syringe IVFLUSH 5 ml TID BREE Administration Sodium Chloride 3 ml 01/20/21 08:00 01/24/21 08:08 0.9 % Sodium Chloride Flush 3 Ml Syringe IVFLUSH 3 ml QSHIFT [facility] Administration Tamsulosin HCl 0.4 mg 01/20/21 17:00 01/23/21 17:01 Tamsulosin Hcl 0.4 Mg Capsule PO 0.4 mg DAILY@1700 [facility] Administration Vancomycin HCl 500 mg 01/20/21 09:00 01/24/21 08:07 Vancomycin Hcl 500 Mg/10 Ml Vial IV 500 mg DAILY BREE Administration Home Medications Medication Instructions Recorded Confirmed Last Taken Type albuterol sulfate 90 mcg/actuation 2 puff PO Q4-6H PRN 03/28/20 01/20/21 Unknown History aerosol inhaler ascorbic acid (vitamin C) 500 mg 500 mg PO BID 03/28/20 01/20/21 Unknown History tablet (Vitamin C) atenolol 25 mg tablet 25 mg PO DAILY 03/28/20 01/20/21 Unknown History cholecalciferol (vitamin D3) 25 25 mcg PO DAILY 03/28/20 01/20/21 Unknown History mcg (1,000 unit) tablet ferrous sulfate 325 mg (65 mg 325 mg PO BID 03/28/20 01/20/21 Unknown History iron) tablet fluoxetine 20 mg capsule 20 mg PO DAILY 03/28/20 01/20/21 Unknown History gabapentin 300 mg capsule 300 mg PO BID@0800,1400 03/28/20 01/20/21 Unknown History gabapentin 600 mg tablet 600 mg PO BEDTIME 03/28/20 01/20/21 Unknown History melatonin 5 mg tablet 5 mg PO BEDTIME 03/28/20 01/20/21 Unknown History metformin 500 mg tablet 500 mg PO DAILY@1700 03/28/20 01/20/21 Unknown History potassium chloride 20 mEq 20 meq PO BEDTIME 03/28/20 01/20/21 Unknown History tablet,extended release(part/cryst) risperidone 0.25 mg tablet 0.25 mg PO BEDTIME 03/28/20 01/20/21 Unknown History tamsulosin 0.4 mg capsule 0.4 mg PO DAILY@1700 03/28/20 01/20/21 Unknown History furosemide 40 mg tablet 60 mg PO QAM 07/04/20 01/20/21 Unknown History amlodipine 10 mg tablet 1 tab PO DAILY 12/25/20 01/20/21 Unknown History chlorhexidine gluconate 4 % 1 appl TOPICAL DAILY 07/20/21 08/15/21 Unknown History topical liquid (Hibiclens) vancomycin 500 mg intravenous 500 mg IV DAILY 01/20/21 01/20/21 Unknown History solution Physical Exam Vital Signs: Vital Signs: Last Vital Signs Temp 97.6 F 01/24/21 07:20 Pulse 64 01/24/21 08:07 Resp 18 01/24/21 07:20 BP 142/66 H 01/24/21 08:07 Pulse Ox 99 01/24/21 07:59 Oxygen Flow Rate 15 01/19/21 23:21 Body Mass Index 31.1 Const: General: alert Neck: Neck: Yes normal visual inspection, Yes full ROM and Yes no lymphadenopathy Chest: Chest palpation & inspection: normal inspection of the chest Resp: Auscultation: crackles bilateral and diminished lung sounds Cardio: Rate: regular rate Rhythm: regular rhythm Heart sounds: S1 normal heart sound present and S2 normal heart sound present GI: Palpation (GI): Soft to palpation and nontender Auscultation: normal bowel sounds Skin: General skin exam: rashes and/or lesions noted Results Laboratory Findings CBC and BMP: 01/24/21 08:30 01/23/21 08:49 ABG, PT/INR, D-dimer: PT/INR, D-dimer PT 18.3 SEC (9.9-13.0) H 01/19/21 23:31 INR 1.6 (0.9-1.1) H 01/19/21 23:31 Abnormal lab findings: Abnormal Labs 01/19/21 01/19/21 01/19/21 23:31 23:31 23:31 RBC 3.59 L Hgb 9.3 L Hct 31.0 L MCH 25.9 L MCHC 30.0 L RDW 16.3 H Neut % (Auto) 88.4 H Lymph % (Auto) 4.3 L Lymph # (Auto) 0.4 L PT INR APTT VBG HCO3 Carbon Dioxide Anion Gap BUN 25 H POC Glucose Random Glucose 146 H B-Natriuretic Peptide 314 H 01/19/21 01/19/21 01/20/21 23:31 23:35 07:51 RBC Hgb Hct MCH MCHC RDW Neut % (Auto) Lymph % (Auto) Lymph # (Auto) PT 18.3 H INR 1.6 H APTT 50.6 H VBG HCO3 28 H Carbon Dioxide Anion Gap BUN POC Glucose 128 H Random Glucose B-Natriuretic Peptide 08/15/21 08/15/21 08/15/21 08:46 11:15 12:58 RBC Hgb Hct MCH MCHC RDW Neut % (Auto) Lymph % (Auto) Lymph # (Auto) PT INR APTT VBG HCO3 Carbon Dioxide Anion Gap BUN POC Glucose 123 H 136 H 153 H Random Glucose B-Natriuretic Peptide 01/20/21 01/20/21 01/21/21 16:07 20:01 08:05 RBC 3.46 L Hgb 8.8 L Hct 29.5 L MCH 25.4 L MCHC 29.8 L RDW 16.2 H Neut % (Auto) 77.7 H Lymph % (Auto) 9.0 L Lymph # (Auto) 0.6 L PT INR APTT VBG HCO3 Carbon Dioxide Anion Gap BUN POC Glucose 125 H 147 H Random Glucose B-Natriuretic Peptide 01/21/21 01/21/21 01/21/21 08:05 15:57 19:49 RBC Hgb Hct MCH MCHC RDW Neut % (Auto) Lymph % (Auto) Lymph # (Auto) PT INR APTT VBG HCO3 Carbon Dioxide Anion Gap BUN 21 H POC Glucose 123 H 130 H Random Glucose B-Natriuretic Peptide 01/22/21 01/22/21 01/22/21 07:13 07:41 07:46 RBC Hgb Hct MCH MCHC RDW Neut % (Auto) Lymph % (Auto) Lymph # (Auto) PT INR APTT VBG HCO3 Carbon Dioxide 35 H Anion Gap 11 L BUN 22 H POC Glucose 119 H 116 H Random Glucose 121 H B-Natriuretic Peptide 01/22/21 01/22/21 01/22/21 11:01 16:05 19:55 RBC Hgb Hct MCH MCHC RDW Neut % (Auto) Lymph % (Auto) Lymph # (Auto) PT INR APTT VBG HCO3 Carbon Dioxide Anion Gap BUN POC Glucose 176 H 119 H 144 H Random Glucose B-Natriuretic Peptide 01/23/21 01/23/21 01/23/21 08:49 08:49 11:13 RBC 3.27 L Hgb 8.5 L Hct 28.3 L MCH 26.0 L MCHC 30.0 L RDW Neut % (Auto) Lymph % (Auto) Lymph # (Auto) PT INR APTT VBG HCO3 Carbon Dioxide 36 H Anion Gap 8 L BUN 24 H POC Glucose 161 H Random Glucose B-Natriuretic Peptide 01/23/21 01/23/21 01/23/21 12:25 16:21 21:05 RBC Hgb Hct MCH MCHC RDW Neut % (Auto) Lymph % (Auto) Lymph # (Auto) PT INR APTT VBG HCO3 41 H Carbon Dioxide Anion Gap BUN POC Glucose 137 H 126 H Random Glucose B-Natriuretic Peptide 01/24/21 01/24/21 07:13 08:30 RBC 3.28 L Hgb 8.5 L Hct 28.6 L MCH 25.9 L MCHC 29.7 L RDW Neut % (Auto) Lymph % (Auto) Lymph # (Auto) PT INR APTT VBG HCO3 Carbon Dioxide Anion Gap BUN POC Glucose 128 H Random Glucose B-Natriuretic Peptide Microbiology: Microbiology 01/19/21 23:32 Blood - Venous Blood Culture - Preliminary No growth after 48 hours. 01/19/21 23:31 Blood - Venous Blood Culture - Preliminary No growth after 48 hours. Assessment and Plan (1) Pulmonary hypertension: Status: Acute (2) BARBARA (obstructive sleep apnea): Status: Acute (3) CHF exacerbation: Qualifiers: Heart failure type: unspecified Qualified Code(s): I50.9 - Heart failure, unspecified Status: Acute (4) Foot ulcer: Qualifiers: Laterality: unspecified laterality Non-pressure ulcer stage: unspecified non-pressure ulcer stage Qualified Code(s): L97.509 - Non-pressure chronic ulcer of other part of unspecified foot with unspecified severity Status: Acute The patient needs to uses oxygen while sleeping and also during the day to keep a pulse ox above 90% The patient should continue with current IV antibiotics past per Infectious Disease Incentive spirometer and out of bed to chair to provide better bronchopulmonary hygiene Will be set up to follow up in our pulmonary clinic in order to be assessed for a sleep study once he is better from the osteomyelitis Procedures Date of Service Date of Service: 01/24/21
[2021-01-24 09:53] LABS: Vancomycin Trough 18.3 mcg/mL (10.0-20.0)
--- NOTE | 2021-01-24 10:09 | PM.PNCARD ---
Subjective Subjective Date of Service: 01/24/21 Interval history: He states that he is feeling better. No new complaints. Review of Systems Cardiovascular: Reports as per HPI, Reports no additional cardiovascular complaints, Denies acrocyanosis, Denies cool extremities, Denies painful fingertips, Denies chest pain, Denies chest pain at rest, Denies diaphoresis, Denies syncope, Denies irregular heart rhythm, Denies claudication, Denies leg edema, Denies lightheadedness, Denies palpitations and Denies dyspnea Respiratory: Denies dyspnea Denies syncope Endocrine: Denies palpitations Physical Exam Vital Signs: Last Vital Signs Temp 97.6 F 01/24/21 07:20 Pulse 64 01/24/21 08:07 Resp 18 01/24/21 07:20 BP 142/66 H 01/24/21 08:07 Pulse Ox 99 01/24/21 07:59 Oxygen Flow Rate 15 01/19/21 23:21 Body Mass Index 31.1 Const General: cooperative and no acute distress HENMT Other: Unremarkable Neck Neck: Yes normal visual inspection Chest Chest palpation & inspection: normal inspection of the chest Resp Other: Bilateral basal crackles Cardio Jugular venous distension: no JVD Palpation: normal PMI Heart sounds: S1 normal heart sound present, S2 normal heart sound present, no gallops, no murmurs and no rubs GI Palpation (GI): Soft to palpation Back/Spine/Pelvis Other: unremarkable Skin General skin exam: no rashes or lesions noted Neuro Cranial nerves: Yes Other cranial nerve findings present Extrem Other: Right below-knee amputation; left side with some leg swelling but there is also dressing on left foot. Psych Mental Status: other Results Labs and Meds Result diagrams: 01/24/21 08:30 01/23/21 08:49 Lab results: Laboratory Results - last 24 hr 01/23/21 01/23/21 01/23/21 11:13 12:25 16:21 WBC RBC Hgb Hct MCV MCH MCHC RDW Plt Count MPV Absolute Nucleated RBC Nucleated RBC % (auto) VBG pH 7.39 VBG pCO2 67 VBG pO2 76 VBG HCO3 41 H VBG O2 Saturation 94.0 VBG Base Excess 13.6 POC Glucose 161 H 137 H Vancomycin Trough 01/23/21 01/24/21 01/24/21 21:05 07:13 07:43 WBC RBC Hgb Hct MCV MCH MCHC RDW Plt Count MPV Absolute Nucleated RBC Nucleated RBC % (auto) VBG pH VBG pCO2 VBG pO2 VBG HCO3 VBG O2 Saturation VBG Base Excess POC Glucose 126 H 128 H Vancomycin Trough 18.3 01/24/21 08:30 WBC 5.4 RBC 3.28 L Hgb 8.5 L Hct 28.6 L MCV 87.2 MCH 25.9 L MCHC 29.7 L RDW 15.9 Plt Count 232 MPV 10.2 Absolute Nucleated RBC 0.000 Nucleated RBC % (auto) 0.0 VBG pH VBG pCO2 VBG pO2 VBG HCO3 VBG O2 Saturation VBG Base Excess POC Glucose Vancomycin Trough Progress Note: A&P Assessment and plan (1) Acute on chronic diastolic (congestive) heart failure: Status: Acute (2) Persistent atrial fibrillation: Status: Acute (3) Pulmonary hypertension: Status: Acute (4) Acute respiratory failure with hypoxia: Status: Acute Assessment and Plan: Pertinent data reviewed. Cardiac BNP is 314. Previous value from December was 275. Lowest was 63 on 12/25/2020. Prior values are grossly similar. High sensitive troponin unremarkable. Chest x-ray reported to have prominent interstitial markings most consistent with edema. Chest CT scan reported to have no pulmonary embolism; small bilateral pleural effusions; ground-glass opacities which are nonspecific but could be from edema versus infection/inflammation. We can treat him for acute on chronic diastolic heart failure. Improved since admission. Change to PO diuretics. Discussed in detail with family regarding guarded prognosis. Echocardiogram: Conclusions: - The left ventricular systolic function is normal.? The visually estimated ejection fraction is between 55-60%. ? - The left atrium is severely dilated. ? - There is mild calcification of the aortic valve. ? - There is moderate anterior mitral leaflet thickening. There is mild mitral valve regurgitation. ? - There is mild tricuspid valve regurgitation. ? - Mild to moderate pulmonary hypertension is present.? Fall Risk Details Current Medications: Current Medications Generic Name Dose Route Start Last Admin Trade Name Freq PRN Reason Stop Dose Admin Acetaminophen 650 mg 01/20/21 05:55 01/23/21 17:01 Acetaminophen 325 Mg Tablet PO 650 mg Q6H PRN Administration Pain, Mild (Pain Scale 1-3) Amlodipine Besylate 10 mg 01/20/21 09:00 01/24/21 08:07 Amlodipine Besylate 10 Mg Tablet PO 10 mg DAILY BREE Administration Protocol Apixaban 5 mg 01/20/21 09:00 01/24/21 08:07 Apixaban 5 Mg Tablet PO 5 mg BID BREE Administration Atenolol 25 mg 01/20/21 09:00 01/24/21 08:07 Atenolol 25 Mg Tablet PO 25 mg DAILY BREE Administration Protocol Atorvastatin Calcium 20 mg 01/20/21 09:00 01/24/21 08:07 Atorvastatin Calcium 20 Mg Tablet PO 20 mg DAILY BREE Administration Dextrose 25 gm 01/20/21 05:55 Dextrose 50 % 25 Gm/50 Ml Vial IVPUSH Q15M PRN per Hypoglycemia Standing Ord. Protocol Docusate Sodium 100 mg 01/20/21 05:55 Docusate Sodium 100 Mg Capsule PO DAILY PRN Constipation Ertapenem 1 gm 01/20/21 09:00 01/24/21 09:33 Ertapenem Sodium 1 Gm Vial IV 1 gm DAILY BREE Administration Fluoxetine HCl 10 mg 01/23/21 11:15 01/24/21 08:07 Fluoxetine Hcl 10 Mg Capsule PO 10 mg DAILY BREE Administration Gabapentin 300 mg 01/22/21 21:00 01/23/21 22:11 Gabapentin 600 Mg Tablet PO 300 mg BEDTIME BREE Administration Glucose 15 gm 01/20/21 05:55 Glucose Gel 15 Gm Gel..Gram. PO Q15M PRN per Hypoglycemia Standing Ord. Protocol Insulin Human Lispro 0 unit 01/20/21 07:30 01/24/21 07:43 Insulin Lispro 100 Unit/Ml 3 Ml Vial SUBCUT Not Given QIDACHS [facility] Protocol Ondansetron HCl 4 mg 01/20/21 05:55 Ondansetron Hcl 4 Mg/2 Ml Vial IVPUSH Q8H PRN Nausea and Vomiting Oxycodone HCl 5 mg 01/20/21 11:34 01/24/21 00:50 Oxycodone Hcl Immed Release 5 Mg Tablet PO 5 mg Q6H PRN Administration Pain, Mild (Pain Scale 1-3) Risperidone 0.25 mg 01/20/21 21:00 01/23/21 22:10 Risperidone 0.25 Mg Tablet PO 0.25 mg BEDTIME BREE Administration Sodium Chloride 5 ml 01/20/21 09:00 01/24/21 08:08 0.9 % Sodium Chloride Flush 10 Ml Syringe IVFLUSH 5 ml TID BREE Administration Sodium Chloride 3 ml 01/20/21 08:00 01/24/21 08:08 0.9 % Sodium Chloride Flush 3 Ml Syringe IVFLUSH 3 ml QSHIFT BREE Administration Tamsulosin HCl 0.4 mg 01/20/21 17:00 01/23/21 17:01 Tamsulosin Hcl 0.4 Mg Capsule PO 0.4 mg DAILY@1700 BREE Administration Vancomycin HCl 500 mg 01/20/21 09:00 01/24/21 08:07 Vancomycin Hcl 500 Mg/10 Ml Vial IV 500 mg DAILY BREE Administration Time Spent With Patient Time: Total time spent is greater than 50% in coordination of care (as documented) at patient's floor/unit and/or counseling patient: Time with patient: less than 15 minutes Progress Note: Quality Stroke Does the patient have a stroke diagnosis?: No Procedures Date of Service Date of Service: 01/24/21
[2021-01-24 11:27] LABS: Glucose, Whole Blood 141 mg/dL (60-115)
[2021-01-24] MEDS: Furosemide 40 MG TABLET PO (11:54)
[2021-01-24 12:38] LABS: Anion Gap 14 (12-20); Blood Urea Nitrogen 24 mg/dL (9-16); Calcium 9.2 mg/dL (8.4-10.2); Carbon Dioxide 32 mmol/L (22-29); Chloride 99 mmol/L (96-108); Estimated Glomerular Filt Rate > 60; Glucose Random 127 mg/dL (60-115); Magnesium 2.4 mg/dL (1.6-2.6); Potassium 4.3 mmol/L (3.3-5.1); Sodium 141 mmol/L (135-145)
--- NOTE | 2021-01-24 12:38 | PM.DS ---
DS: Providers Provider Date of Service: 01/24/21 Date of admission: 01/20/21 05:08 Primary care physician: Thomas Gant MD Consults: 01/20/21 05:55 Consult to Cardiology Routine Consulting Provider: Messi Whitt Reason for consultation: CHF exacerbation Has provider been notified: No 01/21/21 08:06 Consult to Infectious Diseases Stat Consulting Provider: Samira Marshall Reason for consultation: NEW ERTAPENEM ORDER 01/23/21 13:55 Consult to Pulmonology Routine Consulting Provider: Ervin Camacho Reason for consultation: respiratory failure, ? magui DS: Diagnosis Discharge Diagnosis (1) Acute on chronic diastolic (congestive) heart failure: Status: Acute (2) Persistent atrial fibrillation: Status: Acute (3) Pulmonary hypertension: Status: Acute (4) Acute respiratory failure with hypoxia: Status: Acute DS: Medications Discharge Medications Home Medications: Home Medications Medication Instructions Recorded Confirmed albuterol sulfate 90 mcg/actuation 2 puff PO Q4-6H PRN 03/28/20 01/20/21 aerosol inhaler ascorbic acid (vitamin C) 500 mg 500 mg PO BID 03/28/20 01/20/21 tablet (Vitamin C) cholecalciferol (vitamin D3) 25 25 mcg PO DAILY 03/28/20 01/20/21 mcg (1,000 unit) tablet ferrous sulfate 325 mg (65 mg 325 mg PO BID 03/28/20 01/20/21 iron) tablet melatonin 5 mg tablet 5 mg PO BEDTIME 03/28/20 01/20/21 metformin 500 mg tablet 500 mg PO DAILY@1700 03/28/20 01/20/21 potassium chloride 20 mEq 20 meq PO BEDTIME 03/28/20 01/20/21 tablet,extended release(part/cryst) risperidone 0.25 mg tablet 0.25 mg PO BEDTIME 03/28/20 01/20/21 tamsulosin 0.4 mg capsule 0.4 mg PO DAILY@1700 03/28/20 01/20/21 amlodipine 10 mg tablet 1 tab PO DAILY 12/25/20 01/20/21 chlorhexidine gluconate 4 % 1 appl TOPICAL DAILY 12/25/20 01/20/21 topical liquid (Hibiclens) vancomycin 500 mg intravenous 500 mg IV DAILY 01/20/21 01/20/21 solution Previous Rx's Medication Instructions Recorded apixaban 5 mg tablet (Eliquis) 5 mg PO BID #180 tab 09/21/20 atorvastatin 20 mg tablet 20 mg PO QAM #90 tab 09/21/20 ammonium lactate 12 % topical cream 1 appl TOPICAL BID 30 Days #140 g 12/29/20 ertapenem 1 gram solution for 1 g IV DAILY 37 Days #37 ea 01/02/21 injection sodium chloride 0.9 % (flush) 5 ml IVFLUSH TID #500 ml 01/02/21 (Normal Saline Flush) fluoxetine 10 mg capsule 10 mg PO DAILY #30 cap 01/24/21 furosemide 40 mg tablet 40 mg PO BID@0900,1800 #60 tab 01/24/21 gabapentin 600 mg tablet 300 mg PO BEDTIME #30 tab 01/24/21 DS: Summary Hospital Course Hospital Course: Final discharge diagnosis 1. Acute on chronic diastolic heart failure 2. Acute on chronic respiratory failure with hypoxia 3. Toxic/metabolic encephalopathy 4. Osteomyelitis -- diagnosed previous admission 5. A. Fib - slow rates 6. Probable sleep apnea Patient was admitted for hypoxia which was likely secondary to acute on chronic diastolic heart failure. He was treated with IV diuretics with improvement in his symptoms. His oxygen saturation has improved but he does require 2-4 L. he should continue oxygen, currently at 2-4 L with goal to maintain saturations above 90. His oral diuretic dose will be increased from 40 mg daily to 40 mg twice daily. In regards to further cardiac issues, patient has permanent AFib and did have bradycardia/pauses during his sleep. This likely indicates that he has sleep apnea for which Pulmonary was consulted and recommended oxygen during sleep for the time being with follow-up in their clinic for formal sleep study. His atenolol has been discontiued. At the SNF if his HR is persistantly above 100, please notify Cardiology Clinic at [facility] [place]. In regards to his confusion -- this was felt to be multifactorial including hospital delirium plus medications. His gabapentin during the daytime has been discontinued and his bedtime gabapentin dose has been decreased to 300 mg from 600 mg. Furthermore his fluoxetine has been decreased from 20 mg 10 mg in the morning. Furthermore his oxycodone has been discontinued and should be used very judiciously at senior living facility. Finally in regards to his osteomyelitis which he was having treatment at senior living facility, he should continue this and complete therapy at the previously date of 02/09/2021 and continue his labs as recommended previously. Time Spent with Patient Time attestation: Total time spent providing and/or coordinating discharge services: Discharge coordination time: Greater than 30 minutes Quality: Stroke Does the patient have a stroke diagnosis?: No Physical Exam Vital Signs: Vital Signs: Last Vital Signs Temp 97.6 F 01/24/21 10:59 Pulse 66 01/24/21 10:59 Resp 18 01/24/21 10:59 BP 136/60 01/24/21 10:59 Pulse Ox 93 01/24/21 10:59 Oxygen Flow Rate 15 01/19/21 23:21 Body Mass Index 31.1 Const: Other: General - resting comfortably Cardiovascular - regular rate and rhythm, S1-S2 Lungs - normal respiratory effort, clear to auscultation bilaterally, no wheezing Abdomen - soft, non-tender, no rebound or guarding Extremities - minimal edema Neuro - awake and alert, oriented to self and family; knows hes in the hospital DS: Data Data Completed and Pending Completed studies during hospitalization [Text1]: Procedures Insertion of Infusion Device into Superior Vena Cava, Percutaneous Approach (12/25/20) Transfusion of Nonautologous Red Blood Cells into Peripheral Vein, Percutaneous Approach (12/25/20) Labs on day of discharge: Laboratory Results - last 24 hr 01/23/21 01/23/21 01/24/21 16:21 21:05 07:13 WBC RBC Hgb Hct MCV MCH MCHC RDW Plt Count MPV Absolute Nucleated RBC Nucleated RBC % (auto) POC Glucose 137 H 126 H 128 H Vancomycin Trough 01/24/21 01/24/21 01/24/21 07:43 08:30 10:58 WBC 5.4 RBC 3.28 L Hgb 8.5 L Hct 28.6 L MCV 87.2 MCH 25.9 L MCHC 29.7 L RDW 15.9 Plt Count 232 MPV 10.2 Absolute Nucleated RBC 0.000 Nucleated RBC % (auto) 0.0 POC Glucose 141 H Vancomycin Trough 18.3 Preliminary micro results at discharge 01/19/21 23:32 Blood Culture - Preliminary Blood - Venous No growth after 48 hours. 01/19/21 23:31 Blood Culture - Preliminary Blood - Venous No growth after 48 hours. Discharge Plan Discharge Patient Disposition: [facility] Discharge Diagnosis: CHF Encephalopathy Referrals: Ervin Camacho MD [Physician] - None Thomas Gant MD [Primary Care Provider] - 1 Week Messi Whitt MD [Physician] - None Discharge Medications: New gabapentin 600 mg Tablet 300 mg PO BEDTIME Qty: 30 RF: 0 fluoxetine 10 mg Capsule 10 mg PO DAILY Qty: 30 RF: 0 furosemide 40 mg Tablet 40 mg PO BID@0900,1800 Qty: 60 RF: 0 Continued apixaban [Eliquis] 5 mg tablet 5 mg PO BID Qty: 180 RF: 3 atorvastatin 20 mg tablet 20 mg PO QAM Qty: 90 RF: 3 metformin 500 mg tablet 500 mg PO DAILY@1700 RF: 0 risperidone 0.25 mg tablet 0.25 mg PO BEDTIME RF: 0 potassium chloride 20 mEq tablet,ER particles/crystals 20 meq PO BEDTIME RF: 0 ascorbic acid (vitamin C) [Vitamin C] 500 mg tablet 500 mg PO BID RF: 0 tamsulosin 0.4 mg capsule 0.4 mg PO DAILY@1700 RF: 0 ferrous sulfate 325 mg (65 mg iron) tablet 325 mg PO BID RF: 0 albuterol sulfate 90 mcg/actuation HFA aerosol inhaler 2 puff PO Q4-6H PRN (Reason: Shortness Of Breath) RF: 0 cholecalciferol (vitamin D3) 25 mcg (1,000 unit) tablet 25 mcg PO DAILY RF: 0 melatonin 5 mg tablet 5 mg PO BEDTIME RF: 0 amlodipine 10 mg tablet 1 tab PO DAILY RF: 0 chlorhexidine gluconate [Hibiclens] 4 % liquid 1 appl topical DAILY RF: 0 ammonium lactate 12 % Cream 1 appl topical BID 30 Days Qty: 140 RF: 0 sodium chloride 0.9 % (flush) [Normal Saline Flush] Syringe 5 ml IVFLUSH TID Qty: 500 RF: 0 ertapenem 1 gram recon soln 1 g IV DAILY 37 Days Qty: 37 RF: 0 vancomycin 500 mg Recon Soln 500 mg IV DAILY RF: 0 Discontinued gabapentin 600 mg tablet 600 mg PO BEDTIME RF: 0 atenolol 25 mg tablet 25 mg PO DAILY RF: 0 gabapentin 300 mg capsule 300 mg PO BID@0800,1400 RF: 0 fluoxetine 20 mg capsule 20 mg PO DAILY RF: 0 furosemide 40 mg tablet 60 mg PO QAM RF: 0 oxycodone 5 mg Tablet 5 mg PO Q4H PRN (Reason: Pain, Mild (Pain Scale 1-3)) 3 Days Qty: 18 RF: 0 Discharge Orders: Discharge Order (Routine); Ordered 01/24/21 Ordered By: Osvaldo Holland Diet: advance to usual diet Activity on Discharge: As tolerated Stand Alone Forms: Patient Portal Discharge page Care Plan Goals: To stay healthy and out of the hospital. Health Concerns: CHF Hypoxia Confusion A. Fib Probable CHF Plan of Treatment: CHF - take lasix -- increase from 40mg daily to twice daily Hypoxia - continue oxygen 29/12 -- keep saturations 88-92 Confusion - due to multiple issues, medications decreased A. Fib - stop atenolol (low HR), continue other meds Assessment: 85 yo M admitted for hypoxia / confusion. Treated for CHF and his confusion was multifactorial including delirium + medications.
[2021-01-24 13:58] LABS: COVID-19 Test Negative (Negative)
--- NOTE | 2021-01-24 15:34 | MHC.CM.PN ---
Patient has been medically cleared for dc noe SNF/STR today. Patient will dc/return to [facility] today at 4PM, via [facility]. Second IMM addressed with family today, providing them with the original and placing a copy on the chart.
== END 2021-01-24 16:30 | disposition skilled nursing facility (03) | DRG 291 ==
LOC: HO.ED 01-20 02:39 → HO.EDOVER 01-20 05:15 → HO.IMC 01-20 06:04
PROVIDERS: Hospitalist; Internal Medicine; Physician Assistant Medical; Admitting Provider Internal Medicine; Emergency Provider Emergency Medicine; PCP Internal Medicine; Visit Provider Family Medicine
DX: I50.33 Acute on chronic diastolic (congestive) heart failure (principal); J96.01 Acute respiratory failure with hypoxia; G92 Toxic encephalopathy; M86.9 Osteomyelitis, unspecified; I48.19 Other persistent atrial fibrillation; L97.526 Non-pressure chronic ulcer of other part of left foot with bone involvement without evidence of necrosis; I27.20 Pulmonary hypertension, unspecified; Z20.822 Contact with and (suspected) exposure to COVID-19; E11.42 Type 2 diabetes mellitus with diabetic polyneuropathy; E11.69 Type 2 diabetes mellitus with other specified complication; E11.621 Type 2 diabetes mellitus with foot ulcer; G47.33 Obstructive sleep apnea (adult) (pediatric); E11.51 Type 2 diabetes mellitus with diabetic peripheral angiopathy without gangrene; Z89.511 Acquired absence of right leg below knee; Z79.01 Long term (current) use of anticoagulants; Z79.899 Other long term (current) drug therapy
CPT/HCPCS: 0241U; 36415; 70450; 71045; 71275; 80048; 80202; 81003; 82140; 82565; 82803; 82947; 83605; 83735; 83880; 84484; 85025; 85027; 85610; 85730; 87040; 87635; 93005; 93306; 94660; 96361; 96374; 99285; 99291; 99292; J1335; J1940; J1956; J3370; Q9967

== ENCOUNTER 2021-01-25 00:54 | Inpatient (IN) | payer MEDICARE, SELFPAY ==
[2021-01-25] VITALS (20 sets, daily range): BP systolic 109–165; BP diastolic 52–79; PULSE 46–76; RESP 10–22; TEMP 34.2–37.3; O2SAT 60–100; BMI 28.8
--- NOTE | 2021-01-25 | ECG_ITS ---
Test Reason : HYPOXIA Blood Pressure : / mmHG Vent. Rate : 065 BPM Atrial Rate : 267 BPM P-R Int : 000 ms QRS Dur : 104 ms QT Int : 442 ms P-R-T Axes : 000 037 039 degrees QTc Int : 459 ms Atrial fibrillation Abnormal ECG When compared with ECG of 19-JAN-2021 23:20, No significant change was found Referred By: Generic ED Physician Electronically Signed By:CORINA WALKER
--- NOTE | 2021-01-25 | ECG_ITS ---
Test Reason : BRADYCARDIA Blood Pressure : / mmHG Vent. Rate : 054 BPM Atrial Rate : 357 BPM P-R Int : 000 ms QRS Dur : 104 ms QT Int : 470 ms P-R-T Axes : 000 041 049 degrees QTc Int : 445 ms Atrial fibrillation with slow ventricular response Nonspecific T wave abnormality Abnormal ECG When compared with ECG of 25-JAN-2021 01:09, Heart rate has decreased Referred By: Ramakrishna Bailey Electronically Signed By:CORINA WALKER
--- NOTE | ~2021-01-25 | CT_ITS ---
EXAMINATION: CT HEAD WITHOUT CONTRAST CLINICAL INFORMATION: Confusion COMPARISON: 01/20/2021 TECHNIQUE: Contiguous axial imaging was performed from the skull base to vertex without intravenous administration of contrast. This CT examination was performed using dose optimization techniques as appropriate, variously including the following: *Automated exposure control *Adjustment of mA and/or kV according to patient size (this includes techniques or standardized protocols for targeted exams where dose is matched to indication/reason for exam; i.e. extremities or head) *Use of iterative reconstruction technique DLP: 702 mGy-cm FINDINGS: Area of encephalomalacia left frontal lobe periventricular white matter again noted consistent with an area of old ischemia or insult. There is no evidence for any hemorrhage. No findings of any definite acute infarct seen. Brainstem and cerebellum appears stable and grossly intact. Atherosclerosis. No calvarial abnormality. Paranasal sinuses clear.. The osseous structures and soft tissues are normal. The mastoid air cells and visualized portions of the paranasal sinuses are well aerated. CT/CT head/brain wo con IMPRESSION: No acute intracranial pathology.
--- NOTE | ~2021-01-25 | XR_ITS ---
EXAMINATION: XR CHEST CLINICAL INFORMATION: Low oxygen saturation COMPARISON: 01/19/2021 TECHNIQUE: Frontal view of the chest was obtained. FINDINGS: Right PICC line terminates over the mid SVC. Cardiac leads overlie the chest. The lungs are well expanded. Increased right basilar opacity. Bronchial wall thickening. No pleural effusion or pneumothorax. The cardiomediastinal silhouette is unchanged. XR/XR chest 1V IMPRESSION: Bronchial wall thickening can be seen with a small airways process such as asthma or atypical/viral infection. Right basilar opacity could represent superimposed atelectasis or pneumonia.
--- NOTE | ~2021-01-25 | CT_ITS ---
EXAMINATION: CT ABDOMEN AND PELVIS WITHOUT CONTRAST CLINICAL INFORMATION: Abdominal pain and hematuria. COMPARISON: None TECHNIQUE: Multidetector volumetric imaging was performed from the superior aspect of the liver through the pubic symphysis. Sagittal and coronal reformatted images were obtained on the technologist's workstation. This CT examination was performed using dose optimization techniques as appropriate, variously including the following: *Automated exposure control *Adjustment of mA and/or kV according to patient size (this includes techniques or standardized protocols for targeted exams where dose is matched to indication/reason for exam; i.e. extremities or head) *Use of iterative reconstruction technique DLP: 1027 mGy-cm FINDINGS: The exam is suboptimal due to patient breathing artifact and lack of IV contrast. LUNG BASES: There are bilateral moderate pleural effusions with underlying consolidation/atelectasis slightly greater effusion on the right. The heart size is normal. LIVER, GALLBLADDER, AND BILIARY TREE: The liver is normal in size, shape, and attenuation. No focal hepatic lesion or biliary ductal dilatation is present. There are multiple radiopaque round gallstones and mildly distended gallbladder with no wall thickening seen. PANCREAS: Unremarkable. SPLEEN: Unremarkable. ADRENAL GLANDS: Unremarkable. KIDNEYS AND URETERS: The kidneys are normal in size, shape, and attenuation. No hydronephrosis, hydroureter, or calculi seen. No perinephric stranding. BLADDER: The bladder is decompressed with a Hodge's catheter within. Mild bladder wall thickening is present however. GASTROINTESTINAL TRACT: There is scattered stool, gas and diverticuli seen throughout the colon without significant distention. The small bowel loops are normal caliber. Post surgical sutures are seen along the right ascending colon with patent lumen. Appendix is not seen. No free air or free fluid seen. ABDOMINAL WALL: No significant hernia is appreciated. LYMPH NODES: Normal. VASCULAR: The abdominal aorta is of normal caliber. PELVIC VISCERA: There is mild thickening of anorectal wall, likely nonspecific proctitis. Perirectal soft tissues are preserved normal. No free air or free fluid seen. The prostate gland is normal size with radiation prostatic seeds within. OSSEOUS STRUCTURES: There is mild ventral spondylosis lower lumbar spine. CT/CT abdomen pelvis wo con IMPRESSION: No acute intra-abdominal process seen. Mild colonic diverticulosis and constipation. Suspect mild proctitis with rectal and anal wall thickening. Correlate with clinical exam. No radiopaque urolith or hydroureteronephrosis. There is a Hodge's catheter bladder with mild bladder wall thickening but no radiopaque calculi seen. Gallstones with mildly distended bladder. Moderate right and small left pleural effusion with underlying consolidation/atelectasis. These findings were noted on earlier CT chest exam from today.
--- NOTE | ~2021-01-25 | CT_ITS ---
EXAMINATION: CT CHEST WITHOUT CONTRAST CLINICAL INFORMATION: Respiratory failure COMPARISON: 01/20/2021 TECHNIQUE: Multidetector volumetric CT imaging of the chest was done. Axial MIP volume rendering provided. Sagittal and coronal reformatted images were obtained. This CT examination was performed using dose optimization techniques as appropriate, variously including the following: *Automated exposure control *Adjustment of mA and/or kV according to patient size (this includes techniques or standardized protocols for targeted exams where dose is matched to indication/reason for exam; i.e. extremities or head) *Use of iterative reconstruction technique DLP: 525 mGy-cm FINDINGS: INSTALLATION & MAINTENANCE EXECUTIVE: Unchanged LUNGS: Overall similar degree of scattered parenchymal disease with lower lobe consolidation. Scattered groundglass opacities noted. Overall the extent of layering pleural effusions increases is now moderate to large in size right greater than left. No pericardial fluid. MEDIASTINUM: As above. Stable on this nonenhanced study. PLEURA: As above. AXILLA: No lymphadenopathy. UPPER ABDOMEN: Gallstones again noted. This is partially imaged. OSSEOUS STRUCTURES: Unremarkable. CT/CT chest wo con IMPRESSION: Once again similar degree of parenchymal disease with consolidative and patchy ground glass opacities most consistent with infectious process. Increasing pleural effusions. No new findings otherwise.
--- NOTE | ~2021-01-25 | US_ITS ---
EXAMINATION: US RIGHT THORACENTESIS CLINICAL INFORMATION: Bilateral pleural effusions. COMPARISON: Chest x-ray of 01/27/[address] scan of 01/25/2021. TECHNIQUE: Ultrasound-guided right thoracentesis. FINDINGS: Informed consent was obtained from the patient prior to the procedure. During this process, the procedure and potential alternatives were explained, along with the intended outcome and benefits. The risks of the procedure, as well as the risk of not doing the procedure, were discussed. The patient was given the opportunity to ask questions regarding the procedure and appeared competent to make medical decisions. A signed consent form which documents this discussion was placed in the medical record. Using sterile technique and ultrasound guidance, a 5 [place] Yueh needle was directed into the right pleural space from a posterolateral approach. A total of 700 mL of serosanguineous fluid was removed. Patient tolerated the procedure without difficulty. No postprocedure pneumothorax was present. US/US thoracentesis IMPRESSION: Status post right thoracentesis with removal of 700 mL of fluid.
--- NOTE | ~2021-01-25 | XR_ITS ---
EXAMINATION: XR CHEST CLINICAL INFORMATION: Status post right thoracentesis. COMPARISON: None TECHNIQUE: Frontal view of the chest was obtained. FINDINGS: The lungs are well-expanded with minimal atelectatic changes or scarring in both lung bases. The heart size and pulmonary vascularity is normal. No gross bony abnormality. XR/XR chest 1V IMPRESSION: Minimal bibasilar scarring and/or atelectasis, stable. No change in right PICC line.
--- NOTE | ~2021-01-25 | XR_ITS ---
EXAMINATION: XR CHEST CLINICAL INFORMATION: Hypoxia COMPARISON: 01/25/2021 TECHNIQUE: Frontal view of the chest was obtained. FINDINGS: Cardiac leads overlie the chest. Right-sided PICC line terminates over the mid SVC. Lung volumes are low. Streaky bibasilar opacities are again noted, similar to previous. Small pleural effusions. Patchy opacities of the upper lungs again noted. No pneumothorax. The cardiomediastinal silhouette is unchanged, with a calcified aorta. XR/XR chest 1V IMPRESSION: No significant change. Small pleural effusions. Diffuse patchy bilateral opacities are again noted.
[2021-01-25 01:39] LABS: MANUAL DIFF FLAG NO
[2021-01-25 01:44] LABS: Basophils Percent Auto 0.4 % (0-2); Eosinophils Absolute Auto 0.2 X10*3/uL (0.0-0.4); Eosinophils Percent Auto 3.4 % (0-4); Hematocrit 27.5 % (42-52); Hemoglobin 8.2 g/dl (14.0-18.0); Imm Gran Abs Auto 0.01 X10*3/uL (0.00-0.03); Imm Gran Pct Auto 0.2 % (0.0-0.4); Lymphocytes Absolute Auto 0.5 X10*3/uL (1.2-4.9); Lymphocytes Percent Auto 8.3 % (20-40); Mean Corpuscular HGB Conc 29.8 g/dl (31.0-36.0); Mean Corpuscular Hemoglobin 25.7 pg (27.0-33.0); Mean Corpuscular Volume 86.2 fL (80-98); Mean Platelet Volume 9.7 fL (9.4-12.4); Monocytes Absolute Auto 0.4 X10*3/uL (0.1-1.2); Monocytes Percent Auto 7.2 % (2-11); Neutrophils Absolute Auto 4.6 X10*3/uL (2.0-8.3); Neutrophils Percent Auto 80.5 % (45-73); Platelet Count 211 X10*3/uL (160-400); Red Blood Count 3.19 X10*6/uL (4.60-5.80); Red Cell Distribution Width 15.8 % (11.0-16.0); White Blood Count 5.7 X10*3/uL (4.8-10.8)
[2021-01-25 01:45] LABS: OBS Int Ctl Valid YES; OBS1 POSITIVE (NEGATIVE)
[2021-01-25 01:45] LABS: Venous Blood Gas Refer to POC result
[2021-01-25 01:46] LABS: VBG Base Excess 14.8 mmol/L; VBG HCO3 42 mmol/L (22-26); VBG pCO2 71 mmHg; VBG pH 7.38 (7.32-7.43); VBG pO2 223 mmHg
[2021-01-25 01:50] LABS: INTERNATIONAL NORM RATIO 1.6 (0.9-1.1); Prothrombin Time 18.3 SEC (9.9-13.0)
[2021-01-25 01:52] LABS: Partial Thromboplastin Time 47.6 SEC (24.1-38.0)
--- NOTE | 2021-01-25 01:56 | PC.NURSE ---
PT CAME WITH URINARY CATHETER, BALLOON NOT INFLATED AND WAS ACCIDENTALLY PULLED OUT WHEN PT ROLLED. PT HAS FIRM DARK STOOL IN BRIEF. PT HAS PINK PADDED BANDAGE ON COCCYX.
[2021-01-25 02:01] LABS: Lactic Acid 0.6 mmol/L (0.5-2.0)
[2021-01-25 02:12] LABS: B Type Natriuretic Peptide 285 pg/mL (<100); Troponin-I High Sensitivity 4.7 ng/L (<3.5-35.0)
[2021-01-25 02:23] LABS: Blood Urea Nitrogen 28 mg/dL (9-16); Calcium 9.5 mg/dL (8.4-10.2); Creatinine Clr Calc Pharmacy 69.9; Estimated Glomerular Filt Rate > 60; Glucose Random 142 mg/dL (60-115)
--- NOTE | 2021-01-25 02:28 | PC.NURSE ---
PT'S SPO2 88% ON 4 LPM, O2 INCREASED TO 6 LPM, NO CHANGE. RT AT BEDSIDE PLACED PT ON HIGH FLOW NC @ 40L AND 50%.
[2021-01-25 02:32] LABS: Anion Gap 11 (12-20); Carbon Dioxide 35 mmol/L (22-29); Chloride 99 mmol/L (96-108); Potassium 4.2 mmol/L (3.3-5.1); Sodium 141 mmol/L (135-145)
--- NOTE | 2021-01-25 03:17 | ED.GENADULT ---
HPI - General Adult General Chief complaint: Dyspnea Stated complaint: sob Time Seen by Provider: 01/25/21 02:52 Source: EMS Mode of arrival: EMS Limitations: altered mental status History of Present Illness HPI narrative: 85-year-old male who was sent to the ER from his nursing facility for O2 saturations that were 84% on room air. The patient was placed on 15 L via nasal cannula and his O2 saturation improved to 99%. The patient is altered and not able to give a history. The patient was discharged from this facility on January 02, patient was here for osteomyelitis, he was treated with vancomycin Zosyn, patient has now a PICC line and is being treated with vancomycin and ertapenem and then sent to the [facility] facility. The patient patient was hospitalized at this facility again from 01/20/2021 to 01/24/2021 for respiratory distress and hypoxia with O2 saturations in the 40s. The patient was altered at that time and his speech was incomprehensible. The discharge diagnosis was hypoxia secondary to acute on chronic diastolic heart failure which was treated with IV diuretics with improvement. The patient had altered mental status during the admission which was felt to be multifactorial. Related Data Home Medications Medication Instructions Recorded Confirmed albuterol sulfate 90 mcg/actuation 2 puff PO Q4-6H PRN 03/28/20 01/25/21 aerosol inhaler ascorbic acid (vitamin C) 500 mg 500 mg PO BID 03/28/20 01/25/21 tablet (Vitamin C) cholecalciferol (vitamin D3) 25 25 mcg PO DAILY 03/28/20 01/25/21 mcg (1,000 unit) tablet ferrous sulfate 325 mg (65 mg 325 mg PO BID 03/28/20 01/25/21 iron) tablet melatonin 5 mg tablet 5 mg PO BEDTIME 03/28/20 01/25/21 metformin 500 mg tablet 500 mg PO DAILY@1700 03/28/20 01/25/21 potassium chloride 20 mEq 20 meq PO BEDTIME 03/28/20 01/25/21 tablet,extended release(part/cryst) risperidone 0.25 mg tablet 0.25 mg PO BEDTIME 03/28/20 01/25/21 tamsulosin 0.4 mg capsule 0.4 mg PO DAILY@1700 03/28/20 01/25/21 amlodipine 10 mg tablet 1 tab PO DAILY 12/25/20 01/25/21 chlorhexidine gluconate 4 % 1 appl TOPICAL DAILY 12/25/20 01/25/21 topical liquid (Hibiclens) vancomycin 500 mg intravenous 500 mg IV DAILY 01/20/21 01/25/21 solution Previous Rx's Medication Instructions Recorded apixaban 5 mg tablet (Eliquis) 5 mg PO BID #180 tab 09/21/20 atorvastatin 20 mg tablet 20 mg PO QAM #90 tab 09/21/20 ammonium lactate 12 % topical cream 1 appl TOPICAL BID 30 Days #140 g 12/29/20 ertapenem 1 gram solution for 1 g IV DAILY 37 Days #37 ea 01/02/21 injection sodium chloride 0.9 % (flush) 5 ml IVFLUSH TID #500 ml 01/02/21 (Normal Saline Flush) fluoxetine 10 mg capsule 10 mg PO DAILY #30 cap 01/24/21 furosemide 40 mg tablet 40 mg PO BID@0900,1800 #60 tab 01/24/21 gabapentin 600 mg tablet 300 mg PO BEDTIME #30 tab 01/24/21 Allergies Allergy/AdvReac Type Severity Reaction Status Date / Time bee pollen [BEE STINGS] Allergy Severe ANAPHYLAXIS Verified 07/04/20 13:06 doxycycline [DOXYCYCLINE] Allergy Unknown ? 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 Allergy Mild ITCHING Uncoded 03/28/20 19:48 bee venom Allergy Unknown unspecified Uncoded 03/28/20 19:48 sardines Allergy Unknown itching Uncoded 03/28/20 19:48 Review of Systems Review of Systems: Yes Unobtainable due to mental status PMFSH Past Medical History Medical History Afib Alcoholic cardiomyopathy BPH (benign prostatic hyperplasia) COPD (chronic obstructive pulmonary disease) COVID-19 Diabetes Diabetic osteomyelitis Foot ulcer Hyperlipidemia BARBARA (obstructive sleep apnea) PAD (peripheral artery disease) Prostate cancer Surgical History H/O abdominal surgery H/O angioplasty H/O cataract extraction Hx of BKA Family History Family History Mother No problems noted. Father No problems noted. Son No problems noted. Son No problems noted. Son No problems noted. Son No problems noted. Daughter No problems noted. Daughter No problems noted. Daughter No problems noted. Social History Social History Household Members: None Housing: [facility] Do you presently have visiting nurse or other home services: Yes Alcohol intake: never Patient Tobacco Use Status: Never used Tobacco Advance Directives: Yes Advance Directives on File: Yes Advance Directives Date on File: 03/28/20 service: No Current occupational status: retired Physical Exam Vital Signs: Vital Signs: Last Vital Signs Temp 95.8 F L 01/25/21 01:17 Pulse 47 L 01/25/21 03:48 Resp 15 01/25/21 03:48 BP 123/54 L 01/25/21 03:48 Pulse Ox 100 01/25/21 03:48 Oxygen Flow Rate 4 01/25/21 01:17 Body Mass Index 28.8 Const: Other: Elderly male, responds minimally to painful stimuli, does not respond to verbal stimuli, very pale, chronically ill-appearing HENMT: Head: Yes normal to inspection, Yes normocephalic and Yes atraumatic Ears: external ears normal General nose exam: Normal external nose present Face and sinus: Yes normal facial exam Mouth: Normal oral and palatal mucosa present Throat: Yes posterior oropharynx normal Eyes: General: appearance normal, both eyes and all related structures Pupils: Other pupil findings (Pupils are pinpoint) Neck: Neck: Yes normal visual inspection, Yes no lymphadenopathy, Yes trachea midline and Yes supple Chest: Chest palpation & inspection: normal inspection of the chest and normal palpation of entire chest wall Resp: Other: Lung exam revealed rales at the bases, diffuse rhonchi, no wheezing, breath sounds symmetric bilaterally Cardio: Rate: regular rate Rhythm: abnormal rhythm (Bradycardic) Heart sounds: S1 normal heart sound present, S2 normal heart sound present and no murmurs GI: Inspection: Yes normal to inspection Palpation (GI): Soft to palpation, nontender and no guarding Auscultation: normal bowel sounds : General: Yes no CVA tenderness Back/Spine/Pelvis: Back: no CVA tenderness Skin: Other: Very pale General skin exam: no rashes or lesions noted Neuro: Other: Does not respond verbally, minimally responsive to painful stimuli, pupils are pinpoint. Motor exam (neuro): 5/5 motor strength present throughout Extrem: Other: Right above the knee amputation, left lower extremity is in a boot, left foot- toes appear to be erythematous and swollen. Psych: Appearance: grossly normal Speech and movement: Normal speech and movement present Affect: normal affect Attitude: cooperative Thought process: Normal thought process present Thought content: Normal thought content present Course Course Course Narrative: 85-year-old male who presents emergency department for evaluation of acute hypoxia with O2 saturations of 84% at the nursing facility. The patient did improve with 15 L via nasal cannula however here in the emergency department the patient appeared to be tachypneic and was changed to high-flow oxygen at 40 liters/minute and FiO2 of 60% with improvement of his respiratory rate. The patient's lung exam revealed rales at the bases and diffuse rhonchi. Chest x-ray is concerning for possible CHF on my review of this film. Radiologist read the film as bronchial cuffing with right basilar infiltrate. Patient has similar presentation on 01/20/2021 was hospitalized for acute on chronic CHF. The patient does have pinpoint pupils and he will be given Narcan IV. Patient will also be treated with Lasix 80 mg IV. I will discuss this patient with the covering hospitalist. 0445: The patient had no response to the Narcan. Patient's altered level of consciousness may be multifactorial similar to when use her previously and may be related to his hypoxia. The patient was presented to the hospitalist and the patient will be admitted to the intermediate care unit for further treatment. Medical Decision Making Lab Data Result diagrams: 01/25/21 01:25 01/25/21 01:25 Labs: Lab Results 01/25/21 01/25/21 01/25/21 Range/Units 01:25 01:25 01:25 WBC 5.7 (4.8-10.8) X10*3/uL RBC 3.19 L (4.60-5.80) X10*6/uL Hgb 8.2 L (14.0-18.0) g/dl Hct 27.5 L (42-52) % MCV 86.2 (80-98) fL MCH 25.7 L (27.0-33.0) pg MCHC 29.8 L (31.0-36.0) g/dl RDW 15.8 (11.0-16.0) % Plt Count 211 (160-400) X10*3/uL MPV 9.7 (9.4-12.4) fL Immature Gran % (Auto) 0.2 (0.0-0.4) % Neut % (Auto) 80.5 H (45-73) % Lymph % (Auto) 8.3 L (20-40) % [place] % (Auto) 7.2 (2-11) % Eos % (Auto) 3.4 (0-4) % Baso % (Auto) 0.4 (0-2) % Lymph # (Auto) 0.5 L (1.2-4.9) X10*3/uL [place] # (Auto) 0.4 (0.1-1.2) X10*3/uL Eos # (Auto) 0.2 (0.0-0.4) X10*3/uL Baso # (Auto) 0.0 (0.0-0.2) X10*3/uL Abs Immat Gran (auto) 0.01 (0.00-0.03) X10*3/uL Absolute Neuts (auto) 4.6 (2.0-8.3) X10*3/uL Absolute Nucleated RBC 0.000 (0.0-0.012) X10*3/uL Nucleated RBC % (auto) 0.0 (0.0-0.2) /100WBC PT (9.9-13.0) SEC INR (0.9-1.1) APTT (24.1-38.0) SEC VBG pH (7.32-7.43) VBG pCO2 mmHg VBG pO2 mmHg VBG HCO3 (22-26) mmol/L VBG O2 Saturation % VBG Base Excess mmol/L Sodium 141 (135-145) mmol/L Potassium 4.2 (3.3-5.1) mmol/L Chloride 99 (96-108) mmol/L Carbon Dioxide 35 H (22-29) mmol/L Anion Gap 11 L (12-20) BUN 28 H (9-16) mg/dL Creatinine 0.84 (0.5-1.4) mg/dL Estim Creat Clear Calc 69.9 Estimated GFR > 60 Random Glucose 142 H (60-115) mg/dL Lactic Acid 0.6 (0.5-2.0) mmol/L Calcium 9.5 (8.4-10.2) mg/dL Troponin I High Sens (<3.5-35.0) ng/L B-Natriuretic Peptide (<100) pg/mL Stool Occult Blood (NEGATIVE) Coronavirus (PCR) (Negative) Influenza Type A (PCR) (Negative) Influenza Type B (PCR) (Negative) RSV RNA Qual (PCR) (Negative) Blood Type Antibody Screen 01/25/21 01/25/21 01/25/21 Range/Units 01:30 01:30 01:30 WBC (4.8-10.8) X10*3/uL RBC (4.60-5.80) X10*6/uL Hgb (14.0-18.0) g/dl Hct (42-52) % MCV (80-98) fL MCH (27.0-33.0) pg MCHC (31.0-36.0) g/dl RDW (11.0-16.0) % Plt Count (160-400) X10*3/uL MPV (9.4-12.4) fL Immature Gran % (Auto) (0.0-0.4) % Neut % (Auto) (45-73) % Lymph % (Auto) (20-40) % [place] % (Auto) (2-11) % Eos % (Auto) (0-4) % Baso % (Auto) (0-2) % Lymph # (Auto) (1.2-4.9) X10*3/uL [place] # (Auto) (0.1-1.2) X10*3/uL Eos # (Auto) (0.0-0.4) X10*3/uL Baso # (Auto) (0.0-0.2) X10*3/uL Abs Immat Gran (auto) (0.00-0.03) X10*3/uL Absolute Neuts (auto) (2.0-8.3) X10*3/uL Absolute Nucleated RBC (0.0-0.012) X10*3/uL Nucleated RBC % (auto) (0.0-0.2) /100WBC PT 18.3 H (9.9-13.0) SEC INR 1.6 H (0.9-1.1) APTT 47.6 H (24.1-38.0) SEC VBG pH (7.32-7.43) VBG pCO2 mmHg VBG pO2 mmHg VBG HCO3 (22-26) mmol/L VBG O2 Saturation % VBG Base Excess mmol/L Sodium (135-145) mmol/L Potassium (3.3-5.1) mmol/L Chloride (96-108) mmol/L Carbon Dioxide (22-29) mmol/L Anion Gap (12-20) BUN (9-16) mg/dL Creatinine (0.5-1.4) mg/dL Estim Creat Clear Calc Estimated GFR Random Glucose (60-115) mg/dL Lactic Acid (0.5-2.0) mmol/L Calcium (8.4-10.2) mg/dL Troponin I High Sens 4.7 D (<3.5-35.0) ng/L B-Natriuretic Peptide 285 H (<100) pg/mL Stool Occult Blood POSITIVE (NEGATIVE) Coronavirus (PCR) (Negative) Influenza Type A (PCR) (Negative) Influenza Type B (PCR) (Negative) RSV RNA Qual (PCR) (Negative) Blood Type Antibody Screen 01/25/21 01/25/21 01/25/21 Range/Units 01:30 01:40 02:00 WBC (4.8-10.8) X10*3/uL RBC (4.60-5.80) X10*6/uL Hgb (14.0-18.0) g/dl Hct (42-52) % MCV (80-98) fL MCH (27.0-33.0) pg MCHC (31.0-36.0) g/dl RDW (11.0-16.0) % Plt Count (160-400) X10*3/uL MPV (9.4-12.4) fL Immature Gran % (Auto) (0.0-0.4) % Neut % (Auto) (45-73) % Lymph % (Auto) (20-40) % [place] % (Auto) (2-11) % Eos % (Auto) (0-4) % Baso % (Auto) (0-2) % Lymph # (Auto) (1.2-4.9) X10*3/uL [place] # (Auto) (0.1-1.2) X10*3/uL Eos # (Auto) (0.0-0.4) X10*3/uL Baso # (Auto) (0.0-0.2) X10*3/uL Abs Immat Gran (auto) (0.00-0.03) X10*3/uL Absolute Neuts (auto) (2.0-8.3) X10*3/uL Absolute Nucleated RBC (0.0-0.012) X10*3/uL Nucleated RBC % (auto) (0.0-0.2) /100WBC PT (9.9-13.0) SEC INR (0.9-1.1) APTT (24.1-38.0) SEC VBG pH 7.38 (7.32-7.43) VBG pCO2 71 mmHg VBG pO2 223 mmHg VBG HCO3 42 H (22-26) mmol/L VBG O2 Saturation 100.0 % VBG Base Excess 14.8 mmol/L Sodium (135-145) mmol/L Potassium (3.3-5.1) mmol/L Chloride (96-108) mmol/L Carbon Dioxide (22-29) mmol/L Anion Gap (12-20) BUN (9-16) mg/dL Creatinine (0.5-1.4) mg/dL Estim Creat Clear Calc Estimated GFR Random Glucose (60-115) mg/dL Lactic Acid (0.5-2.0) mmol/L Calcium (8.4-10.2) mg/dL Troponin I High Sens (<3.5-35.0) ng/L B-Natriuretic Peptide (<100) pg/mL Stool Occult Blood (NEGATIVE) Coronavirus (PCR) NEGATIVE (Negative) Influenza Type A (PCR) NEGATIVE (Negative) Influenza Type B (PCR) NEGATIVE (Negative) RSV RNA Qual (PCR) NEGATIVE (Negative) Blood Type O Positive Antibody Screen NEGATIVE Critical Care Time Critical Care Time Total Critical Care Time: 45 Attestation: Critical Care: The patient was critically ill with a high probability of imminent or life threatening deterioration. I spent greater than 30 minutes of discontinuous time evaluating the patient,delivering critical care at the bedside, discussing and evaluating pertinent data with consultants. Critical care time does not include time spent performing separately billable procedures or teaching. Total time spent performing critical care was 45 minutes. Discharge Plan Discharge Clinical Impression: Hypoxia CHF (congestive heart failure) Qualifiers: Heart failure chronicity: acute Respiratory failure Qualifiers: Chronicity: acute Respiratory failure complication: hypoxia Qualified Code(s): J96.01 - Acute respiratory failure with hypoxia Patient Disposition: Admitted As Inpatient
[2021-01-25] MEDS: Naloxone HCl 0.4 MG/ML VIAL IVPUSH (03:41)
[2021-01-25] MEDS: Furosemide 100 MG/10 ML VIAL 80 MG IVPUSH (03:41)
--- NOTE | 2021-01-25 03:51 | PC.NURSE ---
PT DROPS HR DOWN TO 40'S IN A JUNCTIONAL RHYTHM. PT RESPONDS TO VOICE OR LOUD TOUCH. PT NON VERBAL WITH EYES ROLLED BACK IN HEAD. BLOOD IN NICOLE FOLLOWING ACCIDENTAL REMOVAL OF NICOLE FROM SNF.
[2021-01-25 03:55] LABS: Influenza A PCR NEGATIVE (Negative); Influenza B PCR NEGATIVE (Negative); Resp Syncy Virus RNA Qual PCR NEGATIVE (Negative); SARS COV2 PCR INHOUSE NEGATIVE (Negative)
--- NOTE | 2021-01-25 04:09 | PC.NURSE ---
ADMINISTERED NARCAN TO SEE IF THERE WOULD BE A CHANGE IN MENTATION/LEVEL OF ALERTNESS. NO CHANGE FOLLOWING.
--- NOTE | 2021-01-25 08:42 | PC.NURSE ---
HEMATURIA, TEMP SENSOR NICOLE READS 93.6, NAOMI AJ APPLIED, ED AWARE, SB ON MONITOR
[2021-01-25 09:51] LABS: ABG Base Excess 15.4 mmol/L; ABG HCO3 44 mmol/L (22-26); ABG pCO2 85 mmHg (32-45); ABG pCO2 TC 76 mmHg (32-45); ABG pH 7.32 (7.35-7.45); ABG pH TC 7.36 (7.35-7.45); ABG pO2 132 mmHg (83-108); ABG pO2 TC 117 (83-108)
[2021-01-25 10:02] LABS: ABG Refer to POC result
--- NOTE | 2021-01-25 11:49 | PM.EVENT ---
Event Note Date of Service: 01/25/21 Event Note: Asked to admit this patient for respiratory failure and CHF whom I had discharged from he hospital yesterday. Per ED providers documentation -- the patient was found to be hypoxic at SNF with saturations 84% on RA and was subsequently brought into the ED. In the ED he was placed on 15L and eventually HFNC to maintain his saturations. His mentation was alerted. Patient seen and examined in the ED around 10AM. He is minimally alert and opens eyes, but not making much senase. He is not in respiratory distress. He has a diez with bloody urine. An ABG is checked which showed acidosis with elevated CO2. THe patient will be placed on BIPAP for a few hours to see how he reponds. If he does not improve, he may need high level of care. Furthermore, he is noted to be in slow A. Fib -- something which did occur while in the hospital. His atenolol was discontinued at the time of discharge. In regards to his hematuria -- per his ED RN, this was secondary to a traumatic diez. Will follow up with the ED team to see his improvement.
[2021-01-25 12:38] LABS: Venous Blood Gas Refer to POC result
[2021-01-25 12:38] LABS: VBG Base Excess 19.5 mmol/L; VBG HCO3 44 mmol/L (22-26); VBG pCO2 51 mmHg; VBG pH 7.54 (7.32-7.43); VBG pO2 194 mmHg
--- NOTE | 2021-01-25 13:47 | PC.NURSE ---
pt on nc and spo2 95%, c/o leg pain and moaning, when pt falls asleep, has episode of sleep apnea w hr dropping until he breaths again or is woken, hr dips to 20's/30's, informed and c pap ordered
--- NOTE | 2021-01-25 13:53 | PHA.MEDREC ---
Pharmacy Consult ? Medication Reconciliation Pharmacy has updated and completed the medication reconciliation.
[2021-01-25] MEDS: Furosemide 200 MG in 0.9 % Sodium Chloride 80 ML IVCONT (14:45)
--- NOTE | 2021-01-25 14:54 | P.HPHOSP_ITS ---
History of Present Illness Date of Service: 01/25/21 Chief Complaint: hypoxia This is an 85 yo M with a PMH as outlined below who presents to the hospital less than 24 hours after being discharged to SNF after an inpatient admission for respriatory failure, CHF and encephalopathy. He is well known to me from his prior admission. On 01/24/2021, when the patient was discharged -- his respiratory status was stable and his mentation was significantly improved. Clear instructions were written to continue his oxygenation at 2-4L to maintain saturation above 90. Per the ED providers note -- it appears that he was found by SNF staff at 84% on room air. It is unclear if the patient was on oxygen at this time and had pulled his O2 off or in fact, he was not placed on oxygen. Upon arrival to the ED (arriaved on NC 15L with sats @ 99%). In the ED, he was noted to be tachypenic and his saturations decreased to below 88 so he was switched to HFNC. He had a CXR checked which showed bronchial wall thickening, R basilar opacity which could represent superimposed atelectasis or pneumonia. He was given a dose of IV lasix and admission was requested (over night). Of note, patient had a diez catheter in place from [facility] with balloon deflated, which was accidentally pulled. A diez catheter was place and subsequently he developed hematuria. Furthermore, the patient was noted to have periods of bradycardia with pauses while sleeping. The patient is seen and examined in the ED multiple times on the day of admissi on, initially around 10AM. At that time, he was resting comfortably without any distress but was confused. He was opening his eyes, but unable to communicate in a meaningful way. He was on HFNC at this time. Subsequently, an ABG, CT head and CT chest were checked. His ABG showed mild acidosis, with increase in his pCO2 and he was placed on BIPAP. Shortly thereafter, the patient's VBG showed improv ement as did his mentation. He was awake and alert, he was complaining of abdominal pain. The case was reviewed with Dr. Zarate from ICU who evaluated the patient and felt that based off his last Echo + CT chest findings (the patient likely has fluid overload and recommended IV lasix in addition to aldactone). Review of Systems Review of Systems: unable to ROS, but he is moaning in pain and points to be abdomen when questioned [facility] Medical History Afib Alcoholic cardiomyopathy BPH (benign prostatic hyperplasia) COPD (chronic obstructive pulmonary disease) COVID-19 Diabetes Diabetic osteomyelitis Foot ulcer Hyperlipidemia BARBARA (obstructive sleep apnea) PAD (peripheral artery disease) Prostate cancer Family History Mother No problems noted. Father No problems noted. Son No problems noted. Son No problems noted. Son No problems noted. Son No problems noted. Daughter No problems noted. Daughter No problems noted. Daughter No problems noted. Surgical History H/O abdominal surgery H/O angioplasty H/O cataract extraction Hx of BKA Social History Household Members: None Housing: [facility] Do you presently have visiting nurse or other home services: Yes Alcohol intake: never Patient Tobacco Use Status: Never used Tobacco Advance Directives: Yes Advance Directives on File: Yes Advance Directives Date on File: 03/28/20 service: No Current occupational status: retired Meds Allergies Allergy/AdvReac Type Severity Reaction Status Date / Time bee pollen [BEE STINGS] Allergy Severe ANAPHYLAXIS Verified 07/04/20 13:06 doxycycline [DOXYCYCLINE] Allergy Unknown ? ALLERGY Verified 07/04/20 13:06 PER EXPRESSIVE THERAPIST [place] Allergy Mild ITCHING Uncoded 03/28/20 19:48 bee venom Allergy Unknown unspecified Uncoded 03/28/20 19:48 sardines Allergy Unknown itching Uncoded 03/28/20 19:48 Active Medications: Current Medications Generic Name Dose Route Start Last Admin Trade Name Freq PRN Reason Stop Dose Admin Acetaminophen 650 mg 01/25/21 12:49 Acetaminophen 325 Mg Tablet PO Q6H PRN Pain, Mild (Pain Scale 1-3) Apixaban 5 mg 01/25/21 12:55 01/25/21 14:44 Apixaban 5 Mg Tablet PO Not Given BID BREE Furosemide 200 mg/ Sodium 100 mls @ 2.5 mls/hr 01/25/21 13:30 01/25/21 14:45 Chloride IVCONT 5 mg/hr .Q24H BREE 2.5 mls/hr Administration 5 MG/HR Meropenem 1 gm/ Sodium 100 mls @ 100 mls/hr 01/25/21 15:00 Chloride IV Q8H BREE Morphine Sulfate 2 mg 01/25/21 14:53 Morphine Sulfate 2 Mg/Ml Cartridge IVPUSH 01/25/21 14:54 ONCE ONE Protocol Ondansetron HCl 4 mg 01/25/21 12:49 Ondansetron Hcl 4 Mg/2 Ml Vial IVPUSH Q8H PRN Nausea and Vomiting Sodium Chloride 3 ml 01/25/21 16:00 0.9 % Sodium Chloride Flush 3 Ml Syringe IVFLUSH QSHIFT BREE Vancomycin HCl 500 mg 01/25/21 12:52 01/25/21 13:32 Vancomycin Hcl 500 Mg/10 Ml Vial IV 500 mg DAILY BREE Administration Home Medications Medication Instructions Recorded Confirmed Last Taken Type albuterol sulfate 90 mcg/actuation 2 puff PO Q4H PRN 03/28/20 01/25/21 Unknown History aerosol inhaler ascorbic acid (vitamin C) 500 mg 500 mg PO BID 03/28/20 01/25/21 Unknown History tablet (Vitamin C) cholecalciferol (vitamin D3) 25 25 mcg PO DAILY 03/28/20 01/25/21 Unknown Hist ory mcg (1,000 unit) tablet ferrous sulfate 325 mg (65 mg 325 mg PO BID 03/28/20 01/25/21 Unknown History iron) tablet melatonin 5 mg tablet 5 mg PO BEDTIME 03/28/20 01/25/21 Unknown History metformin 500 mg tablet 500 mg PO DAILY@1700 03/28/20 01/25/21 Unknown History potassium chloride 20 mEq 20 meq PO BEDTIME 03/28/20 01/25/21 Unknown History tablet,extended release(part/cryst) risperidone 0.25 mg tablet 0.25 mg PO BEDTIME 03/28/20 01/25/21 Unknown History tamsulosin 0.4 mg capsule 0.4 mg PO DAILY@1700 03/28/20 01/25/21 Unknown History amlodipine 10 mg tablet 1 tab PO DAILY 12/25/20 01/25/21 Unknown History chlorhexidine gluconate 4 % 1 appl TOPICAL DAILY 12/25/20 01/25/21 Unknown History topical liquid (Hibiclens) vancomycin 500 mg intravenous 500 mg IV DAILY 01/20/21 01/25/21 Unknown History solution acetaminophen 325 mg tablet (Mapap 650 mg PO Q6H PRN 01/25/21 01/25/21 Unknown History (acetaminophen)) ammonium lactate 12 % lotion 1 appl TOPICAL BID 01/25/21 01/25/21 Unknown History atenolol 25 mg tablet 1 tab PO DAILY 01/25/21 01/25/21 Unknown History fluoxetine 20 mg capsule 1 cap PO DAILY 01/25/21 01/25/21 Unknown History furosemide 20 mg tablet 1 tab PO DAILY 01/25/21 01/25/21 Unknown History gabapentin 300 mg capsule 300 mg PO BID 01/25/21 01/25/21 Unknown History gabapentin 600 mg tablet 1 tab PO BEDTIME 01/25/21 01/25/21 Unknown History oxycodone 5 mg tablet 5 mg PO Q4H PRN 01/25/21 01/25/21 Unknown History Physical Exam Vital Signs and Narrative: Vital Signs: Last Vital Signs Temp 96 F L 01/25/21 13:49 Pulse 72 01/25/21 13:49 Resp 18 01/25/21 13:49 BP 154/53 H 01/25/21 13:49 Pulse Ox 95 01/25/21 13:49 Oxygen Flow Rate 4 01/25/21 01:17 Body Mass Index 28.8 Const: Other: Constitutional - Initially lethargic and barely arousble, but improved after BIPAP and he is complaining of pain Eyes - EOMI Cardiovascular - IRR, LLE edema - trace Respiratory -No rales apprecaited, no respiratory distress, dimished sounds Gastrointestinal - Non distneded but +TTP diffusely without rebounding or guarding - Diez in place with bloody urine Extremities - R BKA Musculoskeletal - R BKA Skin - Warm/Dry Neurological - disoriented Results Labs CBC and Chem 7: 01/25/21 01:25 01/25/21 01:25 Labs: Laboratory Results - last 24 hr 01/25/21 01/25/21 01/25/21 01:25 01:25 01:25 MCV 86.2 MCH 25.7 L MCHC 29.8 L RDW 15.8 Plt Count 211 MPV 9.7 Immature Gran % (Auto) 0.2 Neut % (Auto) 80.5 H Lymph % (Auto) 8.3 L Estill % (Auto) 7.2 Eos % (Auto) 3.4 Baso % (Auto) 0.4 Lymph # (Auto) 0.5 L [place] # (Auto) 0.4 Eos # (Auto) 0.2 Baso # (Auto) 0.0 Abs Immat Gran (auto) 0.01 Absolute Neuts (auto) 4.6 Absolute Nucleated RBC 0.000 Nucleated RBC % (auto) 0.0 PT INR APTT O2 Saturation ABG pH at Pt Temp ABG pH (Temp Correct) ABG pCO2 at Pt Temp ABG pCO2 (Temp Corrct ABG pO2 at Pt Temp ABG pO2 (Temp Correct ABG HCO3 ABG Base Excess (Actual) VBG pH VBG pCO2 VBG pO2 VBG HCO3 VBG O2 Saturation VBG Base Excess Anion Gap 11 L Estim Creat Clear Calc 69.9 Estimated GFR > 60 Random Glucose 142 H Lactic Acid 0.6 Calcium 9.5 Troponin I High Sens B-Natriuretic Peptide Stool Occult Blood Coronavirus (PCR) Influenza Type A (PCR) Influenza Type B (PCR) RSV RNA Qual (PCR) Blood Type Antibody Screen 01/25/21 01/25/21 01/25/21 01:30 01:30 01:30 MCV MCH MCHC RDW Plt Count MPV Immature Gran % (Auto) Neut % (Auto) Lymph % (Auto) Est[place] % (Auto) Eos % (Auto) Baso % (Auto) Lymph # (Auto) [place] # (Auto) Eos # (Auto) Baso # (Auto) Abs Immat Gran (auto) Absolute Neuts (auto) Absolute Nucleated RBC Nucleated RBC % (auto) PT 18.3 H INR 1.6 H APTT 47.6 H O2 Saturation ABG pH at Pt Temp ABG pH (Temp Correct) ABG pCO2 at Pt Temp ABG pCO2 (Temp Corrct ABG pO2 at Pt Temp ABG pO2 (Temp Correct ABG HCO3 ABG Base Excess (Actual) VBG pH VBG pCO2 VBG pO2 VBG HCO3 VBG O2 Saturation VBG Base Excess Anion Gap Estim Creat Clear Calc Estimated GFR Random Glucose Lactic Acid Calcium Troponin I High Sens 4.7 D B-Natriuretic Peptide 285 H Stool Occult Blood POSITIVE Coronavirus (PCR) Influenza Type A (PCR) Influenza Type B (PCR) RSV RNA Qual (PCR) Blood Type Antibody Screen 01/25/21 01/25/21 01/25/21 01:30 01:40 02:00 MCV MCH MCHC RDW Plt Count MPV Immature Gran % (Auto) Neut % (Auto) Lymph % (Auto) [place] % (Auto) Eos % (Auto) Baso % (Auto) Lymph # (Auto) [place] # (Auto) Eos # (Auto) Baso # (Auto) Abs Immat Gran (auto) Absolute Neuts (auto) Absolute Nucleated RBC Nucleated RBC % (auto) PT INR APTT O2 Saturation ABG pH at Pt Temp ABG pH (Temp Correct) ABG pCO2 at Pt Temp ABG pCO2 (Temp Corrct ABG pO2 at Pt Temp ABG pO2 (Temp Correct ABG HCO3 ABG Base Excess (Actual) VBG pH 7.38 VBG pCO2 71 VBG pO2 223 VBG HCO3 42 H VBG O2 Saturation 100.0 VBG Base Excess 14.8 Anion Gap Estim Creat Clear Calc Estimated GFR Random Glucose Lactic Acid Calcium Troponin I High Sens B-Natriuretic Peptide Stool Occult Blood Coronavirus (PCR) NEGATIVE Influenza Type A (PCR) NEGATIVE Influenza Type B (PCR) NEGATIVE RSV RNA Qual (PCR) NEGATIVE Blood Type O Positive Antibody Screen NEGATIVE 01/25/21 01/25/21 09:40 12:34 MCV MCH MCHC RDW Plt Count MPV Immature Gran % (Auto) Neut % (Auto) Lymph % (Auto) [place]ill % (Auto) Eos % (Auto) Baso % (Auto) Lymph # (Auto) Estill # (Auto) Eos # (Auto) Baso # (Auto) Abs Immat Gran (auto) Absolute Neuts (auto) Absolute Nucleated RBC Nucleated RBC % (auto) PT INR APTT O2 Saturation 98.0 ABG pH at Pt Temp 7.32 L ABG pH (Temp Correct) 7.36 ABG pCO2 at Pt Temp 85 H* ABG pCO2 (Temp Corrct 76 H* ABG pO2 at Pt Temp 132 H ABG pO2 (Temp Correct 117 H ABG HCO3 44 H ABG Base Excess (Actual) 15.4 VBG pH 7.54 H VBG pCO2 51 VBG pO2 194 VBG HCO3 44 H VBG O2 Saturation 99.0 VBG Base Excess 19.5 Anion Gap Estim Creat Clear Calc Estimated GFR Random Glucose Lactic Acid Calcium Troponin I High Sens B-Natriuretic Peptide Stool Occult Blood Coronavirus (PCR) Influenza Type A (PCR) Influenza Type B (PCR) RSV RNA Qual (PCR) Blood Type Antibody Screen Imaging Radiologist's Impressions: Impressions Chest X-Ray 01/25/21 01:35 IMPRESSION: Bronchial wall thickening can be seen with a small airways process such as asthma or atypical/viral infection. Right basilar opacity could represent superimposed atelectasis or pneumonia. Head CT 01/25/21 09:30 IMPRESSION: No acute intracranial pathology. Chest CT 01/25/21 13:10 IMPRESSION: Once again similar degree of parenchymal disease with consolidative and patchy ground glass opacities most consistent with infectious process. Increasing pleural effusions. No new findings otherwise. Assessment and Plan (1) Acute on chronic diastolic (congestive) heart failure: Status: Acute This is an 85 yo M with a PMH of diastolic CHF, COPD, probable undiagnosed central vs obstructive sleep apnea, osteomyelitis of the LLE (being treated with IV Ertapenam + Vancomcyin -- end date of 02/09/2021) who presents to the hospital less than 24 hours after admission for hypoxia. He is admitted for further work up. 1. Acute on Chronic Respiratory failure with hypoxia and hypercarbia Not entirely clear why the patients oxygenation at [facility] was reported to be on RA. He is s/p HFNC + Bipap. Will continue oxygen by NC. Will likely need CPAP / AVAPS as he becomes bradycardic while sleeping. Will consult pulmonary 2. Acute on Chronic diastolic CHF was diursed last admission and change dto oral lasix his BNP is decreased, but his CT/CXR still show similar findings will commence IV lasix gtt 3. Acute toxic/metabolic encephalopathy no definitive cause but suspected secondary to his respiratory issues avoid sedative meds 4. A. Fib with bradycardia Happening when he is asleep his BB was discontinued last admission will continue with Eliquis once his hematuria improves 5. Hematuria due to traumatic diez CT abd/pelvis pending 6. Abdominal pain no acute findings on CT scan has stool throughout colon, possibly causing 7. DM keep NPO for now hold metformin 8. Osteomyelitis, not acute complete Rx with vancomcyin / Ertapenam (which is NF and will be replaced with Merrem) - End date 02/09 9. Dark stool send occult blood repeat h/h now (ED h/h was stable from discharge) IV ppi and will consult GI Full Code DVT pptx, Eliquis once GI issues resolved Quality Stroke Does the patient have a stroke diagnosis?: No VTE Prior VTE?: No VTE Risk Level:: Medical - moderate - high VTE Device Contraindication: Treatment Not Indicated VTE Drug Contraindication: N/A - Med Ordered
[2021-01-25] MEDS: Morphine Sulfate 2 MG/ML CARTRIDGE IVPUSH (15:33)
[2021-01-25] MEDS: 0.9 % Sodium Chloride Flush 3 ML SYRINGE IVFLUSH ×2 (15:34→21:23)
[2021-01-25 16:50] LABS: Hematocrit 28.3 % (42-52); Hemoglobin 8.4 g/dl (14.0-18.0)
[2021-01-25] MEDS: Pantoprazole Sodium 40 MG/10 ML VIAL 80 MG IVPUSH (17:13)
[2021-01-25 17:52] LABS: OBS Int Ctl Valid YES; OBS1 POSITIVE (NEGATIVE)
--- NOTE | 2021-01-25 19:30 | PC.NURSE ---
Patient up to unit around 1530. Morphine administered due to patient moaning/grimacing with good effect; patient more restful. Patient on CPap. Patient had large bowel movement upon arrival to unit, stool sample sent to lab. Fole catheter draining red urine due to diez being pulled out accidentally prior to arrival to unit. Air mattress and telesitter present. Family at bedside. Will pass to oncoming RN.
[2021-01-25 20:21] LABS: Glucose, Whole Blood 102 mg/dL (60-115)
[2021-01-26] VITALS (12 sets, daily range): BP systolic 134–173; BP diastolic 63–80; PULSE 57–88; RESP 15–22; TEMP 36.1–37.1; O2SAT 91–97; BMI 28.6
[2021-01-26 05:35] LABS: Glucose, Whole Blood 108 mg/dL (60-115)
[2021-01-26] MEDS: Pantoprazole Sodium 40 MG/10 ML VIAL IVPUSH ×2 (05:39→16:49)
[2021-01-26] MEDS: Furosemide 200 MG in 0.9 % Sodium Chloride 80 ML IVCONT (05:49)
[2021-01-26 07:21] LABS: Glucose, Whole Blood 109 mg/dL (60-115)
[2021-01-26 08:03] LABS: MANUAL DIFF FLAG NO
[2021-01-26 08:08] LABS: Basophils Percent Auto 0.5 % (0-2); Eosinophils Absolute Auto 0.4 X10*3/uL (0.0-0.4); Eosinophils Percent Auto 5.9 % (0-4); Hematocrit 28.6 % (42-52); Hemoglobin 8.5 g/dl (14.0-18.0); Imm Gran Abs Auto 0.03 X10*3/uL (0.00-0.03); Imm Gran Pct Auto 0.5 % (0.0-0.4); Lymphocytes Absolute Auto 0.7 X10*3/uL (1.2-4.9); Lymphocytes Percent Auto 10.5 % (20-40); Mean Corpuscular HGB Conc 29.7 g/dl (31.0-36.0); Mean Corpuscular Hemoglobin 25.4 pg (27.0-33.0); Mean Corpuscular Volume 85.4 fL (80-98); Mean Platelet Volume 9.8 fL (9.4-12.4); Monocytes Absolute Auto 0.6 X10*3/uL (0.1-1.2); Monocytes Percent Auto 8.7 % (2-11); Neutrophils Absolute Auto 4.7 X10*3/uL (2.0-8.3); Neutrophils Percent Auto 73.9 % (45-73); Platelet Count 231 X10*3/uL (160-400); Red Blood Count 3.35 X10*6/uL (4.60-5.80); Red Cell Distribution Width 16.1 % (11.0-16.0); White Blood Count 6.3 X10*3/uL (4.8-10.8)
[2021-01-26 08:29] LABS: Alanine Aminotransferase 15 U/L (0-40); Albumin Level 3.1 g/dL (3.5-5.0); Alkaline Phosphatase 75 U/L (39-117); Aspartate Amino Transferase 18 U/L (5-37); Bilirubin Direct 0.5 mg/dL (0.0-0.5); Bilirubin Total 1.1 mg/dL (0.0-1.0); Total Protein 6.9 g/dL (6.5-8.0)
[2021-01-26 08:35] LABS: Vancomycin Trough 22.2 mcg/mL (10.0-20.0)
[2021-01-26 08:37] LABS: Anion Gap 9 (12-20); Blood Urea Nitrogen 23 mg/dL (9-16); Calcium 9.4 mg/dL (8.4-10.2); Carbon Dioxide 43 mmol/L (22-29); Chloride 98 mmol/L (96-108); Creatinine Clr Calc Pharmacy 68.8; Estimated Glomerular Filt Rate > 60; Glucose Random 107 mg/dL (60-115); Potassium 3.7 mmol/L (3.3-5.1); Sodium 146 mmol/L (135-145)
[2021-01-26] MEDS: 0.9 % Sodium Chloride Flush 3 ML SYRINGE IVFLUSH ×3 (09:46→23:14)
[2021-01-26 11:23] LABS: Glucose, Whole Blood 105 mg/dL (60-115)
--- NOTE | 2021-01-26 11:35 | P.PNIM_ITS ---
Progress Note: A&P (1) CHF (congestive heart failure): Status: Acute (2) Hypoxia: Status: Acute Assessment and Plan: This is an 85 yo M with a PMH of diastolic CHF, COPD, probable undiagnosed central vs obstructive sleep apnea, osteomyelitis of the LLE (being treated with IV Ertapenam + Vancomcyin -- end date of 02/09/2021) who presents to the hospital less than 24 hours after admission for hypoxia. He is admitted for further work up. Acute on Chronic Respiratory failure with hypoxia and hypercarbia Was placed on bipap with good effect. Will continue oxygen by NC and bipap as needed Metabolic alkalosis. Likely secondary to diuresis Stop Lasix drip, add po lasix Acute on Chronic diastolic CHF. Not in overt failure seen and evaluated by cardiology his BNP is decreased, but his CT/CXR still show similar findings Acute toxic/metabolic encephalopathy. more awake today no definitive cause but suspected secondary to his respiratory issues avoid sedative meds nursing bedside swallow eval A. Fib with bradycardia Usually while sleeping will continue with Eliquis once his hematuria improves Hematuria, likely from traumatic diez cath negative urinalysis no acute findings on CT scan stable HH Abdominal pain no acute findings on CT scan has stool throughout colon, possibly causing DM keep NPO for now hold metformin Osteomyelitis, not acute complete Rx with vancomcyin / Ertapenam (which is NF and will be replaced with Merrem) -? End date 02/09 Dark stool occult pos repeat h/h now IV ppi and will consult GI Full Code DVT pptx, Eliquis once GI issues resolved Subjective Subjective Date of Service: 01/26/21 Interval History: Follow up encephalopathy, hypoxia off bipap still sleepy but oxygenating well. Physical Exam Vital Signs: Vital Signs: Last Vital Signs Temp 97.4 F 01/26/21 11:29 Pulse 68 01/26/21 11:29 Resp 18 01/26/21 11:29 BP 134/65 01/26/21 11:29 Pulse Ox 95 01/26/21 11:29 Oxygen Flow Rate 4 01/25/21 01:17 Body Mass Index 28.6 Appearing in no acute distress lungs normal expansion heart regular rate rhythm, clear S1, S2 positive bowel sounds, abdomen is soft, nontender neuro patient is alert x3, no focal deficits Objective Data Current Medications Generic Name Dose Route Start Last Admin Trade Name Freq PRN Reason Stop Dose Admin Acetaminophen 650 mg 01/25/21 12:49 Acetaminophen 325 Mg Tablet PO Q6H PRN Pain, Mild (Pain Scale 1-3) Apixaban 5 mg 01/25/21 12:55 01/25/21 14:44 Apixaban 5 Mg Tablet PO Not Given BID BREE Furosemide 200 mg/ Sodium 100 mls @ 2.5 mls/hr 01/25/21 13:30 01/26/21 05:49 Chloride IVCONT 5 mg/hr .Q24H BREE 2.5 mls/hr Administration 5 MG/HR Meropenem 1 gm/ Sodium 100 mls @ 100 mls/hr 01/25/21 15:00 01/26/21 06:39 Chloride IV Infused Q8H BREE Infusion Ondansetron HCl 4 mg 01/25/21 12:49 Ondansetron Hcl 4 Mg/2 Ml Vial IVPUSH Q8H PRN Nausea and Vomiting Pantoprazole Sodium 40 mg 01/26/21 06:30 01/26/21 05:39 Pantoprazole Sodium 40 Mg/10 Ml Vial IVPUSH 40 mg BID@0630,1630 BREE Administration Sodium Chloride 3 ml 01/25/21 16:00 01/26/21 09:46 0.9 % Sodium Chloride Flush 3 Ml Syringe IVFLUSH 3 ml QSHIFT BREE Administration Vancomycin HCl 500 mg 01/26/21 13:00 Vancomycin Hcl 500 Mg/10 Ml Vial IV Q24H [facility] Labs CBC & Chem 7: 01/26/21 07:57 01/26/21 07:57 Labs: Laboratory Results - last 24 hr 01/25/21 01/25/21 01/25/21 12:34 16:35 20:13 MCV MCH MCHC RDW Plt Count MPV Immature Gran % (Auto) Neut % (Auto) Lymph % (Auto) [place] % (Auto) Eos % (Auto) Baso % (Auto) Lymph # (Auto) [place] # (Auto) Eos # (Auto) Baso # (Auto) Abs Immat Gran (auto) Absolute Neuts (auto) Absolute Nucleated RBC Nucleated RBC % (auto) VBG pH 7.54 H VBG pCO2 51 VBG pO2 194 VBG HCO3 44 H VBG O2 Saturation 99.0 VBG Base Excess 19.5 Anion Gap Estim Creat Clear Calc Estimated GFR POC Glucose 102 Random Glucose Calcium Total Bilirubin Direct Bilirubin AST ALT Alkaline Phosphatase Total Protein Albumin Stool Occult Blood POSITIVE Vancomycin Trough 01/26/21 01/26/21 01/26/21 05:30 07:13 07:57 MCV 85.4 MCH 25.4 L MCHC 29.7 L RDW 16.1 H Plt Count 231 MPV 9.8 Immature Gran % (Auto) 0.5 H Neut % (Auto) 73.9 H Lymph % (Auto) 10.5 L [place] % (Auto) 8.7 Eos % (Auto) 5.9 H Baso % (Auto) 0.5 Lymph # (Auto) 0.7 L [place] # (Auto) 0.6 Eos # (Auto) 0.4 Baso # (Auto) 0.0 Abs Immat Gran (auto) 0.03 Absolute Neuts (auto) 4.7 Absolute Nucleated RBC 0.000 Nucleated RBC % (auto) 0.0 VBG pH VBG pCO2 VBG pO2 VBG HCO3 VBG O2 Saturation VBG Base Excess Anion Gap Estim Creat Clear Calc Estimated GFR POC Glucose 108 109 Random Glucose Calcium Total Bilirubin Direct Bilirubin AST ALT Alkaline Phosphatase Total Protein Albumin Stool Occult Blood Vancomycin Trough 01/26/21 01/26/21 01/26/21 07:57 07:57 07:57 MCV MCH MCHC RDW Plt Count MPV Immature Gran % (Auto) Neut % (Auto) Lymph % (Auto) [place] % (Auto) Eos % (Auto) Baso % (Auto) Lymph # (Auto) [place] # (Auto) Eos # (Auto) Baso # (Auto) Abs Immat Gran (auto) Absolute Neuts (auto) Absolute Nucleated RBC Nucleated RBC % (auto) VBG pH VBG pCO2 VBG pO2 VBG HCO3 VBG O2 Saturation VBG Base Excess Anion Gap 9 L Estim Creat Clear Calc 68.8 Estimated GFR > 60 POC Glucose Random Glucose 107 Calcium 9.4 Total Bilirubin 1.1 H Direct Bilirubin 0.5 AST 18 ALT 15 Alkaline Phosphatase 75 Total Protein 6.9 Albumin 3.1 L Stool Occult Blood Vancomycin Trough 22.2 H 01/26/21 11:14 MCV MCH MCHC RDW Plt Count MPV Immature Gran % (Auto) Neut % (Auto) Lymph % (Auto) [place] % (Auto) Eos % (Auto) Baso % (Auto) Lymph # (Auto) [place] # (Auto) Eos # (Auto) Baso # (Auto) Abs Immat Gran (auto) Absolute Neuts (auto) Absolute Nucleated RBC Nucleated RBC % (auto) VBG pH VBG pCO2 VBG pO2 VBG HCO3 VBG O2 Saturation VBG Base Excess Anion Gap Estim Creat Clear Calc Estimated GFR POC Glucose 105 Random Glucose Calcium Total Bilirubin Direct Bilirubin AST ALT Alkaline Phosphatase Total Protein Albumin Stool Occult Blood Vancomycin Trough Microbiology Microbiology Results: Microbiology 01/25/21 01:25 Urine Catheterized - Diez Catheter Urine Culture - Preliminary Yeast 01/25/21 01:25 Blood - Venous Blood Culture - Preliminary No growth after 24 hours. 01/25/21 01:25 Blood - Venous Blood Culture - Preliminary No growth after 24 hours. Quality Stroke Does the patient have a stroke diagnosis?: No VTE Prior VTE?: No VTE Risk Level:: Medical - moderate - high VTE Device Contraindication: Treatment Not Indicated VTE Drug Contraindication: N/A - Med Ordered
[2021-01-26 11:55] LABS: Appearance Urine HAZY; Color Urine YELLOW; Glucose Urine UA NEG (NEG); Leukocyte Esterase Urine 1+ (NEG); Nitrite Urine NEG (NEG); PH 7.5 (5.0-8.0); Specific Gravity - Urine 1.015 (1.005-1.025); UACC Culture Trigger YES; Urine Blood 3+ (NEG); Urine Ketones 5 MG/DL (NEG); Urine Protein NEG (NEG-TRACE)
[2021-01-26 12:02] LABS: Bacteria Urine TRACE /LPF; RBC Urine 50-75 /HPF (0)
[2021-01-26 12:34] LABS: ABG Base Excess 21.1 mmol/L; ABG HCO3 47 mmol/L (22-26); ABG pCO2 63 mmHg (32-45); ABG pCO2 TC 61 mmHg (32-45); ABG pH 7.48 (7.35-7.45); ABG pH TC 7.49 (7.35-7.45); ABG pO2 69 mmHg (83-108); ABG pO2 TC 66 (83-108)
[2021-01-26 12:48] LABS: ABG Refer to POC result
[2021-01-26] MEDS: Magnesium Hydrox/Alum Hydrox 30 ML ORAL.SUSP 15 ML PO (13:19)
--- NOTE | 2021-01-26 15:11 | P.CONCA_ITS ---
History of Present Illness History of Present Illness Date of Service: 01/26/21 Requesting physician: Osvaldo Holland Chief complaint: Respiratory Failure Narrative: I was requested to Teofilo in cardiology consultation today for hypoxic respiratory failure and suspected congestive heart failure. Patient was brought in within a day after [facility] with hypoxia. Patient present hospital was not wearing oxygen. Patient is not able to provide much history. Her patient's son and daughter were present at bedside when I saw the patient. Patient is altered mental status and delirium. He is intermittently providing some sense ago responses but otherwise not much as per the son. There has been significant changes overall mental status as per the son since his December admission. They are very worried about the same. On initial presentation was hypoxic and was subsequently started on oxygen therapy, subsequent workup showed hypercarbia as well and he was given BiPAP. There is improvement in his mental status however overnight his mental status seems to be dwindling. He was noted to be in atrial fibrillation and yes in the ED had slow ventricular response with heart rate in the 30s. Overnight heart rate have remained in the 60s, however also again heart rate dipping into the 30s with 4-5 second pauses. However patient mental status is not dependent on his slow heart rate. Even has altered mental status with normal heart rate and normal blood pressure. He is also not persistently hypoxemic. Yesterday was felt to be flu id overloaded was started on Lasix drip at 5 mg an hour. Has a negative balance of 4.8 L. blood gas from today shows hypercarbia as well as metabolic alkalosis with alkalotic PH. His brain CT was unremarkable. He continues on oral anticoagulant therapy. He has prior history of diastolic heart failure and last echocardiogram done during last admission had shown normal LV systolic function with severe left atrial enlargement without major valvular abnormality. There is presence of right lung infiltrate Review of Systems Review of Systems: Yes Unobtainable due to mental status PMFSH Past Medical History Medical History Afib Alcoholic cardiomyopathy BPH (benign prostatic hyperplasia) COPD (chronic obstructive pulmonary disease) COVID-19 Diabetes Diabetic osteomyelitis Foot ulcer Hyperlipidemia BARBARA (obstructive sleep apnea) PAD (peripheral artery disease) Prostate cancer Family History Family History Mother No problems noted. Father No problems noted. Son No problems noted. Son No problems noted. Son No problems noted. Son No problems noted. Daughter No problems noted. Daughter No problems noted. Daughter No problems noted. Surgical History Surgical History H/O abdominal surgery H/O angioplasty H/O cataract extraction Hx of BKA Social History Social History Household Members: Other Housing: Prison Do you presently have visiting nurse or other home services: No Alcohol intake: never Patient Tobacco Use Status: Never used Tobacco Use of substances other than those prescribed or required for medical reasons: No Currently Displaying Signs/Symptoms of Drug Intoxication Withdrawal: No Do you feel safe in your current relationship?: No Current Relationship [employer] Healthcare Practices: mandaen Advance Directives: Yes Advance Directives Information Provided: Yes Advance Directives on File: Yes Advance Directives Date on File: 03/28/20 Do you have thoughts of harming others: None Do you have a plan to hurt others: No Plan Recently lost weight without trying: No Nutrition Risks: No Nutritional Risk service: No Current occupational status: retired [email or web address] Allergies Allergy/AdvReac Type Severity Reaction Status Date / Time bee pollen [BEE STINGS] Allergy Severe ANAPHYLAXIS Verified 07/04/20 13:06 doxycycline [DOXYCYCLINE] Allergy Unknown ? ALLERGY Verified 07/04/20 13:06 PER [employer] [place] Allergy Mild ITCHING Uncoded 03/28/20 19:48 bee venom Allergy Unknown unspecified Uncoded 03/28/20 19:48 sardines Allergy Unknown itching Uncoded 03/28/20 19:48 Active Medications: Current Medications Generic Name Dose Route Start Last Admin Trade Name Freq PRN Reason Stop Dose Admin Acetaminophen 650 mg 01/25/21 12:49 Acetaminophen 325 Mg Tablet PO Q6H PRN Pain, Mild (Pain Scale 1-3) Al Hydroxide/Mg Hydroxide 15 ml 01/26/21 12:55 01/26/21 13:19 Magnesium Hydrox/Alum Hydrox 30 Ml Oral.Susp PO 15 ml Q4H PRN Administration upset stomach Apixaban 5 mg 01/25/21 12:55 01/25/21 14:44 Apixaban 5 Mg Tablet PO Not Given BID BREE Furosemide 20 mg 01/27/21 09:00 Furosemide 20 Mg/2 Ml Vial IVPUSH DAILY [facility] Protocol Meropenem 1 gm/ Sodium 100 mls @ 100 mls/hr 01/25/21 15:00 01/26/21 06:39 Chloride IV Infused Q8H BREE Infusion Ondansetron HCl 4 mg 01/25/21 12:49 Ondansetron Hcl 4 Mg/2 Ml Vial IVPUSH Q8H PRN Nausea and Vomiting Pantoprazole Sodium 40 mg 01/26/21 06:30 01/26/21 05:39 Pantoprazole Sodium 40 Mg/10 Ml Vial IVPUSH 40 mg BID@0630,1630 [facility] Administration Sodium Chloride 3 ml 01/25/21 16:00 01/26/21 13:19 0.9 % Sodium Chloride Flush 3 Ml Syringe IVFLUSH 3 ml QSHIFT BREE Administration Vancomycin HCl 500 mg 01/26/21 13:00 01/26/21 13:17 Vancomycin Hcl 500 Mg/10 Ml Vial IV 500 mg Q24H BREE Administration Home Medications Medication Instructions Recorded Confirmed Last Taken Type albuterol sulfate 90 mcg/actuation 2 puff PO Q4H PRN 03/28/20 01/25/21 Unknown History aerosol inhaler ascorbic acid (vitamin C) 500 mg 500 mg PO BID 03/28/20 01/25/21 Unknown History tablet (Vitamin C) cholecalciferol (vitamin D3) 25 25 mcg PO DAILY 03/28/20 01/25/21 Unknown History mcg (1,000 unit) tablet ferrous sulfate 325 mg (65 mg 325 mg PO BID 03/28/20 01/25/21 Unknown History iron) tablet melatonin 5 mg tablet 5 mg PO BEDTIME 03/28/20 01/25/21 Unknown History metformin 500 mg tablet 500 mg PO DAILY@1700 03/28/20 01/25/21 Unknown History potassium chloride 20 mEq 20 meq PO BEDTIME 03/28/20 01/25/21 Unknown History tablet,extended release(part/cryst) risperidone 0.25 mg tablet 0.25 mg PO BEDTIME 03/28/20 01/25/21 Unknown History tamsulosin 0.4 mg capsule 0.4 mg PO DAILY@1700 03/28/20 01/25/21 Unknown History amlodipine 10 mg tablet 1 tab PO DAILY 12/25/20 01/25/21 Unknown History chlorhexidine gluconate 4 % 1 appl TOPICAL DAILY 12/25/20 01/25/21 Unknown History topical liquid (Hibiclens) vancomycin 500 mg intravenous 500 mg IV DAILY 01/20/21 01/25/21 Unknown History solution acetaminophen 325 mg tablet (Mapap 650 mg PO Q6H PRN 01/25/21 01/25/21 Unknown History (acetaminophen)) ammonium lactate 12 % lotion 1 appl TOPICAL BID 01/25/21 01/25/21 Unknown History atenolol 25 mg tablet 1 tab PO DAILY 01/25/21 01/25/21 Unknown History fluoxetine 20 mg capsule 1 cap PO DAILY 01/25/21 01/25/21 Unknown History furosemide 20 mg tablet 1 tab PO DAILY 01/25/21 01/25/21 Unknown History gabapentin 300 mg capsule 300 mg PO BID 01/25/21 01/25/21 Unknown History gabapentin 600 mg tablet 1 tab PO BEDTIME 01/25/21 01/25/21 Unknown History oxycodone 5 mg tablet 5 mg PO Q4H PRN 01/25/21 01/25/21 Unknown History Physical Exam Vital Signs: Vital Signs: Last Vital Signs Temp 97.4 F 01/26/21 11:29 Pulse 85 01/26/21 13:49 Resp 18 01/26/21 12:11 BP 134/65 01/26/21 11:29 Pulse Ox 95 01/26/21 11:29 Oxygen Flow Rate 4 01/25/21 01:17 Body Mass Index 28.6 Const: General: cooperative, comfortable, no acute distress and lethargic Nutritional Appearance: overweight Orientation/consciousness: lethargic HENMT: Head: Yes normocephalic and Yes atraumatic Neck: Neck: Yes trachea midline, Yes supple and Yes no JVD Resp: Effort & Inspection: decreased respiratory effort Auscultation: no rales, no wheezes and diminished lung sounds Cardio: Jugular venous distension: no JVD Rate: regular rate Rhythm: abnormal rhythm irregularly irregular Heart sounds: S1 normal heart sound present, S2 normal heart sound present, no click, no gallops, no murmurs and no rubs GI: Auscultation: normal bowel sounds Skin: General skin exam: no rashes or lesions noted Extrem: General: No clubbing, No cyanosis and Yes other (Right below-knee ampu tation. Wound on the left foot) Results Labs and Meds Result diagrams: 01/26/21 07:57 01/26/21 07:57 Lab results: Laboratory Results - last 24 hr 01/25/21 01/25/21 01/25/21 16:35 16:42 20:13 WBC RBC Hgb 8.4 L Hct 28.3 L MCV MCH MCHC RDW Plt Count MPV Immature Gran % (Auto) Neut % (Auto) Lymph % (Auto) [place] % (Auto) Eos % (Auto) Baso % (Auto) Lymph # (Auto) [place] # (Auto) Eos # (Auto) Baso # (Auto) Abs Immat Gran (auto) Absolute Neuts (auto) Absolute Nucleated RBC Nucleated RBC % (auto) O2 Saturation ABG pH at Pt Temp ABG pH (Temp Correct) ABG pCO2 at Pt Temp ABG pCO2 (Temp Corrct ABG pO2 at Pt Temp ABG pO2 (Temp Correct ABG HCO3 ABG Base Excess (Actual) Sodium Potassium Chloride Carbon Dioxide Anion Gap BUN Creatinine Estim Creat Clear Calc Estimated GFR POC Glucose 102 Random Glucose Calcium Total Bilirubin Direct Bilirubin AST ALT Alkaline Phosphatase Total Protein Albumin Urine Color Urine Appearance Urine pH Ur Specific [place] Urine Protein Urine Glucose (UA) Urine Ketones Urine Blood Urine Nitrite Ur Leukocyte Esterase Urine RBC Urine WBC Ur Squamous Epith Cells Urine Bacteria Stool Occult Blood POSITIVE Vancomycin Trough 01/26/21 01/26/21 01/26/21 05:30 07:13 07:57 WBC 6.3 RBC 3.35 L Hgb 8.5 L Hct 28.6 L MCV 85.4 MCH 25.4 L MCHC 29.7 L RDW 16.1 H Plt Count 231 MPV 9.8 Immature Gran % (Auto) 0.5 H Neut % (Auto) 73.9 H Lymph % (Auto) 10.5 L [place] % (Auto) 8.7 Eos % (Auto) 5.9 H Baso % (Auto) 0.5 Lymph # (Auto) 0.7 L [place] # (Auto) 0.6 Eos # (Auto) 0.4 Baso # (Auto) 0.0 Abs Immat Gran (auto) 0.03 Absolute Neuts (auto) 4.7 Absolute Nucleated RBC 0.000 Nucleated RBC % (auto) 0.0 O2 Saturation ABG pH at Pt Temp ABG pH (Temp Correct) ABG pCO2 at Pt Temp ABG pCO2 (Temp Corrct ABG pO2 at Pt Temp ABG pO2 (Temp Correct ABG HCO3 ABG Base Excess (Actual) Sodium Potassium Chloride Carbon Dioxide Anion Gap BUN Creatinine Estim Creat Clear Calc Estimated GFR POC Glucose 108 109 Random Glucose Calcium Total Bilirubin Direct Bilirubin AST ALT Alkaline Phosphatase Total Protein Albumin Urine Color Urine Appearance Urine pH Ur Specific [place] Urine Protein Urine Glucose (UA) Urine Ketones Urine Blood Urine Nitrite Ur Leukocyte Esterase Urine RBC Urine WBC Ur Squamous Epith Cells Urine Bacteria Stool Occult Blood Vancomycin Trough 01/26/21 01/26/21 01/26/21 07:57 07:57 07:57 WBC RBC Hgb Hct MCV MCH MCHC RDW Plt Count MPV Immature Gran % (Auto) Neut % (Auto) Lymph % (Auto) [place] % (Auto) Eos % (Auto) Baso % (Auto) Lymph # (Auto) [place] # (Auto) Eos # (Auto) Baso # (Auto) Abs Immat Gran (auto) Absolute Neuts (auto) Absolute Nucleated RBC Nucleated RBC % (auto) O2 Saturation ABG pH at Pt Temp ABG pH (Temp Correct) ABG pCO2 at Pt Temp ABG pCO2 (Temp Corrct ABG pO2 at Pt Temp ABG pO2 (Temp Correct ABG HCO3 ABG Base Excess (Actual) Sodium 146 H Potassium 3.7 Chloride 98 Carbon Dioxide 43 H* D Anion Gap 9 L BUN 23 H Creatinine 0.85 Estim Creat Clear Calc 68.8 Estimated GFR > 60 POC Glucose Random Glucose 107 Calcium 9.4 Total Bilirubin 1.1 H Direct Bilirubin 0.5 AST 18 ALT 15 Alkaline Phosphatase 75 Total Protein 6.9 Albumin 3.1 L Urine Color Urine Appearance Urine pH Ur Specific [place] Urine Protein Urine Glucose (UA) Urine Ketones Urine Blood Urine Nitrite Ur Leukocyte Esterase Urine RBC Urine WBC Ur Squamous Epith Cells Urine Bacteria Stool Occult Blood Vancomycin Trough 22.2 H 01/26/21 01/26/21 01/26/21 11:14 11:20 12:25 WBC RBC Hgb Hct MCV MCH MCHC RDW Plt Count MPV Immature Gran % (Auto) Neut % (Auto) Lymph % (Auto) [place] % (Auto) Eos % (Auto) Baso % (Auto) Lymph # (Auto) [place] # (Auto) Eos # (Auto) Baso # (Auto) Abs Immat Gran (auto) Absolute Neuts (auto) Absolute Nucleated RBC Nucleated RBC % (auto) O2 Saturation 91.0 ABG pH at Pt Temp 7.48 H ABG pH (Temp Correct) 7.49 H ABG pCO2 at Pt Temp 63 H* ABG pCO2 (Temp Corrct 61 H* ABG pO2 at Pt Temp 69 L ABG pO2 (Temp Correct 66 L ABG HCO3 47 H ABG Base Excess (Actual) 21.1 Sodium Potassium Chloride Carbon Dioxide Anion Gap BUN Creatinine Estim Creat Clear Calc Estimated GFR POC Glucose 105 Random Glucose Calcium Total Bilirubin Direct Bilirubin AST ALT Alkaline Phosphatase Total Protein Albumin Urine Color YELLOW Urine Appearance HAZY Urine pH 7.5 Ur Specific [place] 1.015 Urine Protein NEG Urine Glucose (UA) NEG Urine Ketones 5 Urine Blood 3+ H Urine Nitrite NEG Ur Leukocyte Esterase 1+ H Urine RBC 50-75 H Urine WBC 5-9 H Ur Squamous Epith Cells NONE Urine Bacteria TRACE Stool Occult Blood Vancomycin Trough EKG shows atrial fibrillation Imaging Radiologist's impression: Impressions Abdomen/Pelvis CT 01/25/21 14:25 IMPRESSION: No acute intra-abdominal process seen. Mild colonic diverticulosis and constipation. Suspect mild proctitis with rectal and anal wall thickening. Correlate with clinical exam. No radiopaque urolith or hydroureteronephrosis. There is a Hodge's catheter bladder with mild bladder wall thickening but no radiopaque calculi seen. Gallstones with mildly distended bladder. Moderate right and small left pleural effusion with underlying consolidation/atelectasis. These findings were noted on earlier CT chest exam from today. Assessment and Plan (1) Respiratory failure with hypoxia: Status: Acute Patient presents with respiratory failure with hypoxemia. Unclear etiology. He has been diuresed and has about -4 0.8 L. Clinically today does appear to be in florid heart failure with no significant evidence of fluid overload. His BNP is in the mid 200 range. There is evidence of right lower lobe infiltrate question aspiration pneumonia. Being treated for the same. I would not consider continuing diuresis at this point time given that his CO2 has increased significantly with evidence of metabolic alkalosis most likely due to intravascular contraction. Continue supportive care. Continue treatment of hypoxemia with replacement oxygen and consider BiPAP/CPAP therapy. Pulmonary consultation. (2) Persistent atrial fibrillation: Status: Acute Chronic atrial fibrillation. Currently rate controlled with occasional bradycardia with pauses. However there is no clear symptoms during this pauses and his mental status not depending on bradycardia. Would continue to monitor him. Avoid rate lowering medications. Currently would avoid pacemaker therapy given his overall clinical condition. Continue full oral anticoagulation, currently on Eliquis 5 mg b.i.d.. Continue to monitor renal function. (3) Altered mental status: Status: Acute Altered mental status in this elderly patient of unclear etiology. Family is most concerned about this since December hospitalization. Question toxic/metabolic given his alkalosis as well as elevated CO2. Supportive care. Consider neurology consultation. His altered mental status does not appear to be due to significant heart failure and/or bradycardia. Will sign of the case. Feel free to consult us thank you Procedures Date of Service Date of Service: 01/26/21
[2021-01-26 15:39] LABS: Anion Gap 15 (12-20); Blood Urea Nitrogen 23 mg/dL (9-16); Calcium 9.3 mg/dL (8.4-10.2); Carbon Dioxide 39 mmol/L (22-29); Chloride 97 mmol/L (96-108); Estimated Glomerular Filt Rate > 60; Glucose Random 112 mg/dL (60-115); Potassium 3.5 mmol/L (3.3-5.1); Sodium 147 mmol/L (135-145)
--- NOTE | 2021-01-26 18:21 | P.EN_ITS ---
Event Note Date of Service: 01/26/21 Event Note: GI Consult-Full note dictated. Hx via patient's son and daughter at the bedside, his RN, and from the EMR. Imp: 85 yo male with multiple medical issues admitted with chronic anemia, and the finding of dark and Heme + stool. He is on Eliquis and Iron. His Hgb has be en stable and he has had no signs of active bleeding. His abd exam is benign and the CT of his abdomen does not show any acute GI issues. He had a negative colonoscopy > 10 years ago. Diff dx: Gastritis/PUD/AVM's/GI neoplasm Rec: Given his stable anemia, basically normal BUN, and his dark stool being very well from chronic Iron use, I don't think he is having any significant nor active UGI bleeding. I would not recommend endoscopy nor colonoscopy at this time given his current condition. I think the yield would be low and the potential risks from anesthesia, etc. would be high. 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 Certainly if anything changes with signs of active bleeding I would then reassess the situation. This has all been discussed with his son and daughter in detail. They are comfortable with this plan. Please contact me if I can be of any further assistance during the hospitalization. Thanks.
--- NOTE | 2021-01-26 20:06 | P.CONPL_ITS ---
History of Present Illness History of Present Illness Consult date: 01/26/21 Chief complaint: Respiratory Failure Narrative: This is an 85 yo M with known osteomyelitis, CHF, respiratory failure who presents to the hospital less than 24 hours after being discharged to SNF after an inpatient admission for respriatory failure, CHF and encephalopathy. He was found by SNF staff at 84% on room air. It is unclear if the patient was on oxygen at this time and had pulled his O2 off or in fact, he was not placed on oxygen. Upon arrival to the ED (arriaved on [place] 15L with sats @ 99%). In the ED, he was noted to be tachypenic and his saturations decreased to below 88 so he was switched to HFNC. He had a CXR checked which showed bronchial wall thickening, R basilar opacity which could represent superimposed atelectasis or pneumonia. He becaome more confused, somnolent. His ABG showed acute on chronic hypercarbic respiratory failure and placed on BIPAP. Shortly thereafter, the patient's VBG showed improvement as did his mentation. He was awake and alert, he was complaining of abdominal pain. He continues to be drowsy. Complaining of leg pain. Currently on a lasix drip and IV antibiotics. Review of Systems Review of Systems: Yes Unobtainable due to mental condition PMFSH Past Medical History Medical History (Updated 01/26/21 @ 20:23 by Ervin Camacho MD) Acute and chronic respiratory failure with hypercapnia Afib Alcoholic cardiomyopathy BPH (benign prostatic hyperplasia) COPD (chronic obstructive pulmonary disease) COVID-19 Diabetes Diabetic osteomyelitis Foot ulcer Hyperlipidemia BARBARA (obstructive sleep apnea) PAD (peripheral artery disease) Pleural effusion Prostate cancer Family History Family History Mother No problems noted. Father No problems noted. Son No problems noted. Son No problems noted. Son No problems noted. Son No problems noted. Daughter No problems noted. Daughter No problems noted. Daughter No problems noted. Surgical History Surgical History H/O abdominal surgery H/O angioplasty H/O cataract extraction Hx of BKA Social History Social History Household Members: Other Housing: Intermediate Do you presently have visiting nurse or other home services: No Alcohol intake: never Patient Tobacco Use Status: Never used Tobacco Use of substances other than those prescribed or required for medical reasons: No Currently Displaying Signs/Symptoms of Drug Intoxication Withdrawal: No Do you feel safe in your current relationship?: No Current Relationship [facility] Practices: episcopalian Advance Directives: Yes Advance Directives Information Provided: Yes Advance Directives on File: Yes Advance Directives Date on File: 03/28/20 Do you have thoughts of harming others: None Do you have a plan to hurt others: No Plan Recently lost weight without trying: No Nutrition Risks: No Nutritional Risk service: No Current occupational status: retired Meds Allergies Allergy/AdvReac Type Severity Reaction Status Date / Time bee pollen [BEE STINGS] Allergy Severe ANAPHYLAXIS Verified 07/04/20 13:06 doxycycline [DOXYCYCLINE] Allergy Unknown ? ALLERGY Verified 07/04/20 13:06 PER ANESTHESIOLOGY RESIDENT SARDINES Allergy Mild ITCHING Uncoded 03/28/20 19:48 bee venom Allergy Unknown unspecified Uncoded 03/28/20 19:48 sardines Allergy Unknown itching Uncoded 03/28/20 19:48 Active Medications: Current Medications Generic Name Dose Route Start Last Admin Trade Name Freq PRN Reason Stop Dose Admin Acetaminophen 650 mg 01/25/21 12:49 Acetaminophen 325 Mg Tablet PO Q6H PRN Pain, Mild (Pain Scale 1-3) Al Hydroxide/Mg Hydroxide 15 ml 01/26/21 12:55 01/26/21 13:19 Magnesium Hydrox/Alum Hydrox 30 Ml Oral.Susp PO 15 ml Q4H PRN Administration upset stomach Apixaban 5 mg 01/25/21 12:55 01/25/21 14:44 Apixaban 5 Mg Tablet PO Not Given BID BREE Furosemide 20 mg 01/27/21 09:00 Furosemide 20 Mg/2 Ml Vial IVPUSH DAILY FORMERLY [facility], 1928–1983 Protocol Meropenem 1 gm/ Sodium 100 mls @ 100 mls/hr 01/25/21 15:00 01/26/21 18:38 Chloride IV Infused Q8H BREE Infusion Ondansetron HCl 4 mg 01/25/21 12:49 Ondansetron Hcl 4 Mg/2 Ml Vial IVPUSH Q8H PRN Nausea and Vomiting Pantoprazole Sodium 40 mg 01/26/21 06:30 01/26/21 16:49 Pantoprazole Sodium 40 Mg/10 Ml Vial IVPUSH 40 mg BID@0630,1630 FOR[facility]–1983 Administration Sodium Chloride 3 ml 01/25/21 16:00 01/26/21 13:19 0.9 % Sodium Chloride Flush 3 Ml Syringe IVFLUSH 3 ml QSHIFT BREE Administration Vancomycin HCl 500 mg 01/26/21 13:00 01/26/21 13:17 Vancomycin Hcl 500 Mg/10 Ml Vial IV 500 mg Q24H BREE Administration Home Medications Medication Instructions Recorded Confirmed Last Taken Type albuterol sulfate 90 mcg/actuation 2 puff PO Q4H PRN 03/28/20 01/25/21 Unknown History aerosol inhaler ascorbic acid (vitamin C) 500 mg 500 mg PO BID 03/28/20 01/25/21 Unknown History tablet (Vitamin C) cholecalciferol (vitamin D3) 25 25 mcg PO DAILY 03/28/20 01/25/21 Unknown History mcg (1,000 unit) tablet ferrous sulfate 325 mg (65 mg 325 mg PO BID 03/28/20 01/25/21 Unknown History iron) tablet melatonin 5 mg tablet 5 mg PO BEDTIME 03/28/20 01/25/21 Unknown History metformin 500 mg tablet 500 mg PO DAILY@1700 03/28/20 01/25/21 Unknown History potassium chloride 20 mEq 20 meq PO BEDTIME 03/28/20 01/25/21 Unknown History tablet,extended release(part/cryst) risperidone 0.25 mg tablet 0.25 mg PO BEDTIME 03/28/20 01/25/21 Unknown History tamsulosin 0.4 mg capsule 0.4 mg PO DAILY@1700 03/28/20 01/25/21 Unknown History amlodipine 10 mg tablet 1 tab PO DAILY 12/25/20 01/25/21 Unknown History chlorhexidine gluconate 4 % 1 appl TOPICAL DAILY 12/25/20 01/25/21 Unknown History topical liquid (Hibiclens) vancomycin 500 mg intravenous 500 mg IV DAILY 01/20/21 01/25/21 Unknown History solution acetaminophen 325 mg tablet (Mapap 650 mg PO Q6H PRN 01/25/21 01/25/21 Unknown History (acetaminophen)) ammonium lactate 12 % lotion 1 appl TOPICAL BID 01/25/21 01/25/21 Unknown History atenolol 25 mg tablet 1 tab PO DAILY 01/25/21 01/25/21 Unknown History fluoxetine 20 mg capsule 1 cap PO DAILY 01/25/21 01/25/21 Unknown History furosemide 20 mg tablet 1 tab PO DAILY 01/25/21 01/25/21 Unknown History gabapentin 300 mg capsule 300 mg PO BID 01/25/21 01/25/21 Unknown History gabapentin 600 mg tablet 1 tab PO BEDTIME 01/25/21 01/25/21 Unknown History oxycodone 5 mg tablet 5 mg PO Q4H PRN 01/25/21 01/25/21 Unknown History Physical Exam Vital Signs: Vital Signs: Last Vital Signs Temp 97.8 F 01/26/21 19:49 Pulse 81 01/26/21 19:49 Resp 18 01/26/21 19:49 BP 173/80 H 01/26/21 19:49 Pulse Ox 95 01/26/21 19:49 Oxygen Flow Rate 4 01/25/21 01:17 Body Mass Index 28.6 Const: General: alert, ill appearing and lethargic Orientation/consciousness: lethargic Eyes: Pupils: Equal, round and reactive pupils present and Pinpoint pupils Neck: Neck: Yes normal visual inspection, Yes full ROM and Yes no lymphadenopathy Chest: Chest palpation & inspection: normal inspection of the chest Resp: Auscultation: diminished lung sounds Cardio: Rate: regular rate Rhythm: regular rhythm Heart sounds: S1 normal heart sound present and S2 normal heart sound present GI: Palpation (GI): Soft to palpation and nontender Auscultation: normal bowel sounds Skin: General skin exam: rashes and/or lesions noted Neuro: Cranial nerves: Yes Equal, round and reactive pupils present Extrem: Left lower extremity: foot Details: abnormal to inspection, tenderness and ecchymosis Results Laboratory Findings CBC and BMP: 01/26/21 07:57 01/26/21 15:00 ABG, PT/INR, D-dimer: ABG Urine Color YELLOW 01/26/21 11:20 Urine Appearance HAZY 01/26/21 11:20 Urine pH 7.5 (5.0-8.0) 01/26/21 11:20 Ur Specific [place] 1.015 (1.005-1.025) 01/26/21 11:20 Urine Protein NEG MG/DL (NEG-TRACE) 01/26/21 11:20 Urine Glucose (UA) NEG MG/DL (NEG) 01/26/21 11:20 Urine Ketones 5 MG/DL (NEG) 01/26/21 11:20 Urine Blood 3+ (NEG) H 01/26/21 11:20 Urine Nitrite NEG (NEG) 01/26/21 11:20 Ur Leukocyte Esterase 1+ (NEG) H 01/26/21 11:20 Urine RBC 50-75 /HPF (0) H 01/26/21 11:20 Urine WBC 5-9 /HPF (0-4) H 01/26/21 11:20 Ur Squamous Epith Cells NONE /LPF 01/26/21 11:20 Urine Bacteria TRACE /LPF 01/26/21 11:20 PT/INR, D-dimer PT 18.3 SEC (9.9-13.0) H 01/25/21 01:30 INR 1.6 (0.9-1.1) H 01/25/21 01:30 Abnormal lab findings: Abnormal Labs 01/25/21 01/25/21 01/25/21 01:25 01:25 01:30 RBC 3.19 L Hgb 8.2 L Hct 27.5 L MCH 25.7 L MCHC 29.8 L RDW Immature Gran % (Auto) Neut % (Auto) 80.5 H Lymph % (Auto) 8.3 L Eos % (Auto) Lymph # (Auto) 0.5 L PT 18.3 H INR 1.6 H APTT 47.6 H ABG pH at Pt Temp ABG pH (Temp Correct) ABG pCO2 at Pt Temp ABG pCO2 (Temp Corrct ABG pO2 at Pt Temp ABG pO2 (Temp Correct ABG HCO3 VBG pH VBG HCO3 Sodium Carbon Dioxide 35 H Anion Gap 11 L BUN 28 H Random Glucose 142 H Total Bilirubin B-Natriuretic Peptide Albumin Urine Blood Ur Leukocyte Esterase Urine RBC Urine WBC Vancomycin Trough 01/25/21 01/25/21 01/25/21 01:30 01:40 09:40 RBC Hgb Hct MCH MCHC RDW Immature Gran % (Auto) Neut % (Auto) Lymph % (Auto) Eos % (Auto) Lymph # (Auto) PT INR APTT ABG pH at Pt Temp 7.32 L ABG pH (Temp Correct) ABG pCO2 at Pt Temp 85 H* ABG pCO2 (Temp Corrct 76 H* ABG pO2 at Pt Temp 132 H ABG pO2 (Temp Correct 117 H ABG HCO3 44 H VBG pH VBG HCO3 42 H Sodium Carbon Dioxide Anion Gap BUN Random Glucose Total Bilirubin B-Natriuretic Peptide 285 H Albumin Urine Blood Ur Leukocyte Esterase Urine RBC Urine WBC Vancomycin Trough 01/25/21 01/25/21 01/26/21 12:34 16:42 07:57 RBC 3.35 L Hgb 8.4 L 8.5 L Hct 28.3 L 28.6 L MCH 25.4 L MCHC 29.7 L RDW 16.1 H Immature Gran % (Auto) 0.5 H Neut % (Auto) 73.9 H Lymph % (Auto) 10.5 L Eos % (Auto) 5.9 H Lymph # (Auto) 0.7 L PT INR APTT ABG pH at Pt Temp ABG pH (Temp Correct) ABG pCO2 at Pt Temp ABG pCO2 (Temp Corrct ABG pO2 at Pt Temp ABG pO2 (Temp Correct ABG HCO3 VBG pH 7.54 H VBG HCO3 44 H Sodium Carbon Dioxide Anion Gap BUN Random Glucose Total Bilirubin B-Natriuretic Peptide Albumin Urine Blood Ur Leukocyte Esterase Urine RBC Urine WBC Vancomycin Trough 01/26/21 01/26/21 01/26/21 07:57 07:57 07:57 RBC Hgb Hct MCH MCHC RDW Immature Gran % (Auto) Neut % (Auto) Lymph % (Auto) Eos % (Auto) Lymph # (Auto) PT INR APTT ABG pH at Pt Temp ABG pH (Temp Correct) ABG pCO2 at Pt Temp ABG pCO2 (Temp Corrct ABG pO2 at Pt Temp ABG pO2 (Temp Correct ABG HCO3 VBG pH VBG HCO3 Sodium 146 H Carbon Dioxide 43 H* D Anion Gap 9 L BUN 23 H Random Glucose Total Bilirubin 1.1 H B-Natriuretic Peptide Albumin 3.1 L Urine Blood Ur Leukocyte Esterase Urine RBC Urine WBC Vancomycin Trough 22.2 H 01/26/21 01/26/21 01/26/21 11:20 12:25 15:00 RBC Hgb Hct MCH MCHC RDW Immature Gran % (Auto) Neut % (Auto) Lymph % (Auto) Eos % (Auto) Lymph # (Auto) PT INR APTT ABG pH at Pt Temp 7.48 H ABG pH (Temp Correct) 7.49 H ABG pCO2 at Pt Temp 63 H* ABG pCO2 (Temp Corrct 61 H* ABG pO2 at Pt Temp 69 L ABG pO2 (Temp Correct 66 L ABG HCO3 47 H VBG pH VBG HCO3 Sodium 147 H Carbon Dioxide 39 H Anion Gap BUN 23 H Random Glucose Total Bilirubin B-Natriuretic Peptide Albumin Urine Blood 3+ H Ur Leukocyte Esterase 1+ H Urine RBC 50-75 H Urine WBC 5-9 H Vancomycin Trough Microbiology: Microbiology 01/25/21 01:25 Urine Catheterized - Hodge Catheter Urine Culture - Preliminary Yeast 01/25/21 01:25 Blood - Venous Blood Culture - Preliminary No growth after 24 hours. 01/25/21 01:25 Blood - Venous Blood Culture - Preliminary No growth after [address] scan - chest: image reviewed Additional studies: CT CHEST WITHOUT CONTRAST CLINICAL INFORMATION: Respiratory failure? COMPARISON: 01/20/2021? TECHNIQUE: Multidetector volumetric CT imaging of the chest was done. Axial MIP volume rendering provided. Sagittal and coronal reformatted images were obtained.? This CT examination was performed using dose optimization techniques as appropriate, variously including the following: *Automated exposure control *Adjustment of mA and/or kV according to patient size (this includes techniques or standardized protocols for targeted exams where dose is matched to indication/reason for exam; i.e. extremities or head) *Use of iterative reconstruction technique DLP: 525 mGy-cm FINDINGS: EXPLOSIVES OPERATOR: Unchanged LUNGS: Overall similar degree of scattered parenchymal disease with lower lobe consolidation. Scattered groundglass opacities noted. Overall the extent of layering pleural effusions increases is now moderate to large in size right greater than left. No pericardial fluid. MEDIASTINUM: As above. Stable on this nonenhanced study.? PLEURA: As above.? AXILLA: No lymphadenopathy.? UPPER ABDOMEN: Gallstones again noted. This is partially imaged.? OSSEOUS STRUCTURES: Unremarkable.? CT/CT chest wo con IMPRESSION: Once again similar degree of parenchymal disease with consolidative and patchy ground glass opacities most consistent with infectious process. Increasing pleural effusions. No new findings otherwise. Assessment and Plan (1) Acute and chronic respiratory failure with hypercapnia: Status: Acute (2) CHF (congestive heart failure): Qualifiers: Heart failure chronicity: acute Status: Acute (3) Hypoxia: Status: Acute (4) Pneumonia: Status: Acute (5) Pleural effusion: Status: Acute (6) Encephalopathy: Status: Acute multifactorial, hypercarbic encepaholapthy playing a role Continue Meropenem/vanco Diuresis as tolerated repeat ABG The patient carries a poor prognosis due to his hypercarbic respiratory failure due to his COPD. Also has a high risk for readmission to the hospital. Could consider staring BIPAP or AVAPse at night while sleeping. In lab sleep split study once able Goals of care Procedures Date of Service Date of Service: 01/26/21
[2021-01-26 20:57] LABS: Glucose, Whole Blood 97 mg/dL (60-115)
--- NOTE | 2021-01-26 23:28 | CONS_ITS ---
DATE OF SERVICE: 01/26/2021 REASON OF CONSULTATION: Dark stool, heme-positive stool, and anemia. HISTORY OF PRESENT ILLNESS: This has been obtained from the patient's son and daughter, who were at the bedside, his nurse, and the medical record. The patient is an 85-year-old male with multiple underlying medical problems including peripheral vascular disease and atrial fibrillation, who was readmitted here from the rehab facility after some hypoxia and change in mental status. He has been on iron replacement for a chronic anemia. His workup did reveal a stable and chronic anemia, but also revealed some dark stool which was heme-positive. His mental status has seemingly improved since he was admitted here. His family reports that as far as they know he has not had any chronic GI complaints. There is no previous history of ulcer disease. He did have a colonoscopy with Dr. Solorio in 2009 that was described as normal, but he also describes a normal appearing anastomosis in the ascending colon with an ileocolonic anastomosis. Since admission here, there has been no sign of any obvious bleeding. He has not had any bowel movements. There has been no vomiting. He denies abdominal pain. MEDICATIONS: His present medications on transfer back to the hospital included acetaminophen, albuterol inhaler, amlodipine, Eliquis, vitamin C, atenolol, atorvastatin, vitamin D, intravenous ertapenem, ferrous sulfate, fluoxetine, furosemide, gabapentin, metformin, oxycodone, potassium, risperidone, tamsulosin, and IV vancomycin. Here in the hospital, his medications included Eliquis, Lasix, furosemide, meropenem, morphine p.r.n., Zofran p.r.n., IV Protonix 40 mg b.i.d., and IV vancomycin. PAST MEDICAL HISTORY: Includes atrial fibrillation, peripheral vascular disease, osteomyelitis of the left lower extremity, congestive heart failure, sleep apnea, hypoxia, cellulitis, diabetes mellitus, chronic anemia, pneumonia. He had a right below-knee amputation with Dr. Kirkpatrick, right colectomy many years ago for unclear reasons, multiple right lower extremity surgeries for vascular disease prior to the amputation, cataract surgery. SOCIAL HISTORY: He had been living in a rehab facility, but before that he had been living at home. FAMILY HISTORY: Noncontributory. PHYSICAL EXAMINATION: GENERAL: The patient is an alert, elderly male, who tends to fall asleep easily. 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 SKIN: Warm and dry. HEENT: Nonjaundiced. Anicteric sclerae. NECK: Supple. ABDOMEN: Soft, nondistended, and nontender without palpable mass. LABORATORY DATA: On admission, his hemoglobin was 8.2. MCV 86. He does have a long-standing anemia and has had hemoglobin in the 8 to 9 range. INR 1.6. Normal electrolytes except for sodium 146. BUN 23, creatinine 0.9. Total bilirubin 1.1, AST 18, ALT 15, alkaline phosphatase 75. He has had heme-positive stool. DIAGNOSTIC DATA: He did have CAT scan of the abdomen and pelvis on admission, which did not describe any acute GI issues. Specifically, there was no sign of any bowel obstruction. He does have some gallstones, but there is no evidence of any cholecystitis. IMPRESSION: The patient is an elderly male with multiple medical issues with the finding of some dark heme-positive stool and stable chronic anemia. Based on the clinical history, I suspect he probably has some chronic gastritis as the cause of the heme-positive stool. His chronic anemia may very well be multifactorial in relation to his chronic disease state and some small amounts of blood loss in relation to his chronic anticoagulation on Eliquis. Other possibilities given his clinical condition could be that of ulcer disease, esophagitis, angiodysplasias, and even GI neoplasm. Given his stable anemia, basically normal BUN, and dark stool possibly being related to his chronic iron use, I do not think he is having any significant nor active upper GI bleeding. Therefore, I would not recommend endoscopy nor colonoscopy at this time given his poor medical condition. I think the yield on GI procedures would be low and the potential risks from that, including potential complications from anesthesia, could be high. Therefore, I would continue conservative and supportive management. I would switch him to a long-term oral PPI given his chronic medical issues and long-standing need for blood thinning in relation to atrial fibrillation. I would follow the hemoglobin. I would check B12, folate level if not done recently. He should avoid aspirin and NSAIDs. The nurse describes that he did recently pass a swallowing test since admission here and his mental status has improved. Therefore, I think his diet can be advanced as tolerated. Certainly if he shows any signs of active bleeding, we could then reassess the situation, however, if things remain stable, I would not recommend any endoscopic intervention at this time. This has all been discussed with the patient's son and daughter in detail, and they are comfortable with this plan. Please contact me if I could be of any further assistance during the hospitalization. Thank you for the consultation. MD CHEMA Avila/OCHOA / [id number]
[2021-01-27] VITALS (10 sets, daily range): BP systolic 134–167; BP diastolic 65–82; PULSE 68–98; RESP 17–20; TEMP 36.2–37; O2SAT 63–98; BMI 28.9
[2021-01-27] MEDS: Pantoprazole Sodium 40 MG/10 ML VIAL IVPUSH ×2 (05:54→15:20)
[2021-01-27] MEDS: 0.9 % Sodium Chloride Flush 3 ML SYRINGE IVFLUSH ×2 (06:36→15:20)
[2021-01-27] MEDS: Furosemide 20 MG/2 ML VIAL IVPUSH (07:17)
[2021-01-27 07:21] LABS: Glucose, Whole Blood 82 mg/dL (60-115)
[2021-01-27 07:25] LABS: Hematocrit 28.2 % (42-52); Hemoglobin 8.5 g/dl (14.0-18.0); Mean Corpuscular HGB Conc 30.1 g/dl (31.0-36.0); Mean Corpuscular Hemoglobin 25.4 pg (27.0-33.0); Mean Corpuscular Volume 84.4 fL (80-98); Mean Platelet Volume 9.9 fL (9.4-12.4); Platelet Count 228 X10*3/uL (160-400); Red Blood Count 3.34 X10*6/uL (4.60-5.80); Red Cell Distribution Width 16.1 % (11.0-16.0); White Blood Count 5.7 X10*3/uL (4.8-10.8)
[2021-01-27 07:28] LABS: INTERNATIONAL NORM RATIO 1.2 (0.9-1.1); Prothrombin Time 13.7 SEC (9.9-13.0)
[2021-01-27 08:28] LABS: Alanine Aminotransferase 15 U/L (0-40); Alkaline Phosphatase 74 U/L (39-117); Anion Gap 10 (12-20); Aspartate Amino Transferase 20 U/L (5-37); Bilirubin Direct 0.6 mg/dL (0.0-0.5); Bilirubin Total 1.3 mg/dL (0.0-1.0); Blood Urea Nitrogen 18 mg/dL (9-16); Calcium 9.3 mg/dL (8.4-10.2); Carbon Dioxide 40 mmol/L (22-29); Chloride 97 mmol/L (96-108); Creatinine Clr Calc Pharmacy 73.4; Estimated Glomerular Filt Rate > 60; Glucose Random 91 mg/dL (60-115); Potassium 3.4 mmol/L (3.3-5.1); Sodium 144 mmol/L (135-145); Total Protein 6.6 g/dL (6.5-8.0)
[2021-01-27 11:43] LABS: Glucose, Whole Blood 169 mg/dL (60-115)
--- NOTE | 2021-01-27 12:40 | MHC.CM.PN ---
CM MET WITH PTS SON, CHET, AND DAUGHTER, WHO WERE AT BEDSIDE. THEY REPORT AT BASELINE THE PT LIVES ALONE AND HAS VNA AND [employer] THROUGH [facility]. AT BASELINE PT CAN SELF TRANSFER AND IS MOSTLY INDEPENDENT WITH ADLS BUT HAS [employer] FOR SHOWERS. PT WAS RECENTLY DISCHARGED TO [facility] FOR STR AND FAMILY WOULD LIKE HIM TO RETURN THERE TO COMPLETE HIS IV ABX (END DATE 02/09). PTS PCP IS BHAVANI BRICE HCP ON FILE IMM DELIVERED CURRENT DC PLAN IS RETURN TO [facility] TO COMPLETE IV ABX PT WILL NEED BLS TRANSPORT
--- NOTE | 2021-01-27 12:43 | PM.IMPN ---
Progress Note: A&P (1) COPD (chronic obstructive pulmonary disease): Status: Acute <Gracia Camacho NP - Last Filed: 01/27/21 12:59> (2) Pleural effusion: Status: Acute <Gracia Camacho NP - Last Filed: 01/27/21 12:59> Assessment and Plan: This is an 85 yo M with a PMH of diastolic CHF, COPD, probable undiagnosed central vs obstructive sleep apnea, osteomyelitis of the LLE (being treated with IV Ertapenam + Vancomcyin -- end date of 02/09/2021) who presents to the hospital less than 24 hours after admission for hypoxia. He is admitted for further work up. Pleural effusions Thoracentesis tomorrow NPO after midnight send labs and cytology Acute toxic/metabolic encephalopathy. much more awake today no definitive cause but suspected secondary to his respiratory issues avoid sedative meds passed nursing bedside swallow eval Acute on Chronic Respiratory failure with hypoxia and hypercarbia Was placed on bipap with good effect. Will continue oxygen by NC and bipap as needed Metabolic alkalosis.?improving Likely secondary to diuresis Stop Lasix drip, add po lasix Acute on Chronic diastolic CHF. Not in overt failure seen and evaluated by cardiology his BNP is decreased, but his CT/CXR still show similar findings A. Fib with bradycardia Usually while sleeping will continue with Eliquis once his hematuria improves Hematuria, likely from traumatic diez cath negative urinalysis no acute findings on CT scan stable HH Abdominal pain no acute findings on CT scan has stool throughout colon, possibly causing DM keep NPO for now hold metformin Osteomyelitis, not acute complete Rx with vancomcyin / Ertapenam (which is NF and will be replaced with Merrem) -? End date 02/09 Dark stool occult pos repeat h/h now IV ppi and will consult GI Full Code DVT pptx, Eliquis once GI issues resolved <Gracia Camacho NP - Last Filed: 01/27/21 12:59> Subjective Subjective Date of Service: 01/27/21 <Gracia Camacho NP - Last Filed: 01/27/21 12:59> 01/27/21 <Wilberto Araiza MD - Last Filed: 01/27/21 13:29> Interval History: Follow up encephalopathy awake and conversive today <Gracia Camacho NP - Last Filed: 01/27/21 12:59> Physical Exam Vital Signs: Vital Signs: Last Vital Signs Temp 97.8 F 01/27/21 11:44 Pulse 89 01/27/21 11:44 Resp 17 01/27/21 12:02 BP 134/65 01/27/21 11:44 Pulse Ox 97 01/27/21 11:44 Oxygen Flow Rate 4 01/25/21 01:17 Body Mass Index 28.9 <Gracia Camacho NP - Last Filed: 01/27/21 12:59> Appearing in no acute distress lung sounds are clear to auscultation heart regular rate rhythm, clear S1, S2 positive bowel sound alert and oriented <Gracia Camacho NP - Last Filed: 01/27/21 12:59> Objective Data Current Medications Generic Name Dose Route Start Last Admin Trade Name Freq PRN Reason Stop Dose Admin Acetaminophen 650 mg 01/25/21 12:49 Acetaminophen 325 Mg Tablet PO Q6H PRN Pain, Mild (Pain Scale 1-3) Al Hydroxide/Mg Hydroxide 15 ml 01/26/21 12:55 01/26/21 13:19 Magnesium Hydrox/Alum Hydrox 30 Ml Oral.Susp PO 15 ml Q4H PRN Administration upset stomach Apixaban 5 mg 01/25/21 12:55 01/25/21 14:44 Apixaban 5 Mg Tablet PO Not Given BID BREE Furosemide 20 mg 01/27/21 09:00 01/27/21 07:17 Furosemide 20 Mg/2 Ml Vial IVPUSH 20 mg DAILY BREE Administration Protocol Meropenem 1 gm/ Sodium 100 mls @ 100 mls/hr 01/25/21 15:00 01/27/21 07:43 Chloride IV Infused Q8H BREE Infusion Ondansetron HCl 4 mg 01/25/21 12:49 Ondansetron Hcl 4 Mg/2 Ml Vial IVPUSH Q8H PRN Nausea and Vomiting Pantoprazole Sodium 40 mg 01/26/21 06:30 01/27/21 05:54 Pantoprazole Sodium 40 Mg/10 Ml Vial IVPUSH 40 mg BID@0630,1630 BREE Administration Sodium Chloride 3 ml 01/25/21 16:00 01/27/21 06:36 0.9 % Sodium Chloride Flush 3 Ml Syringe IVFLUSH 3 ml QSHIFT BREE Administration Vancomycin HCl 500 mg 01/26/21 13:00 01/26/21 13:17 Vancomycin Hcl 500 Mg/10 Ml Vial IV 500 mg Q24H BREE Administration <Gracia Camacho NP - Last Filed: 01/27/21 12:59> Labs CBC & Chem 7: : 01/27/21 06:56 01/27/21 06:56 <Gracia Camacho NP - Last Filed: 01/27/21 12:59> Labs: Laboratory Results - last 24 hr 01/26/21 01/26/21 01/27/21 15:00 20:53 06:56 MCV MCH MCHC RDW Plt Count MPV Absolute Nucleated RBC Nucleated RBC % (auto) PT 13.7 H D INR 1.2 H Anion Gap 15 Estim Creat Clear Calc 68.0 Estimated GFR > 60 POC Glucose 97 Random Glucose 112 Calcium 9.3 Total Bilirubin Direct Bilirubin AST ALT Alkaline Phosphatase Total Protein Albumin 01/27/21 01/27/21 01/27/21 06:56 06:56 07:00 MCV 84.4 MCH 25.4 L MCHC 30.1 L RDW 16.1 H Plt Count 228 MPV 9.9 Absolute Nucleated RBC 0.000 Nucleated RBC % (auto) 0.0 PT INR Anion Gap 10 L Estim Creat Clear Calc 73.4 Estimated GFR > 60 POC Glucose 82 Random Glucose 91 Calcium 9.3 Total Bilirubin 1.3 H Direct Bilirubin 0.6 H AST 20 ALT 15 Alkaline Phosphatase 74 Total Protein 6.6 Albumin 3.0 L 01/27/21 11:37 MCV MCH MCHC RDW Plt Count MPV Absolute Nucleated RBC Nucleated RBC % (auto) PT INR Anion Gap Estim Creat Clear Calc Estimated GFR POC Glucose 169 H Random Glucose Calcium Total Bilirubin Direct Bilirubin AST ALT Alkaline Phosphatase Total Protein Albumin <Gracia Camacho NP - Last Filed: 01/27/21 12:59> Microbiology Microbiology Results: Microbiology 01/25/21 01:25 Urine Catheterized - Diez Catheter Urine Culture - Final Viviana tropicalis 01/25/21 01:25 Blood - Venous Blood Culture - Preliminary No growth after 48 hours. 01/25/21 01:25 Blood - Venous Blood Culture - Preliminary No growth after 48 hours. <Gracia Camacho NP - Last Filed: 01/27/21 12:59> Quality Stroke Does the patient have a stroke diagnosis?: No <Gracia Cmaacho NP - Last Filed: 01/27/21 12:59> VTE Prior VTE?: No <Gracia Camacho NP - Last Filed: 01/27/21 12:59> VTE Risk Level:: Medical - moderate - high <Gracia Camacho NP - Last Filed: 01/27/21 12:59> VTE Device Contraindication: Treatment Not Indicated <Gracia Camacho NP - Last Filed: 01/27/21 12:59> VTE Drug Contraindication: N/A - Med Ordered <Gracia Camacho NP - Last Filed: 01/27/21 12:59>
[2021-01-27 16:25] LABS: Glucose, Whole Blood 136 mg/dL (60-115)
[2021-01-27 21:56] LABS: Glucose, Whole Blood 107 mg/dL (60-115)
[2021-01-28] VITALS (8 sets, daily range): BP systolic 141–164; BP diastolic 65–72; PULSE 77–93; RESP 15–20; TEMP 35.8–37.2; O2SAT 90–98; BMI 28.9
[2021-01-28 06:03] LABS: INTERNATIONAL NORM RATIO 1.1 (0.9-1.1); Prothrombin Time 12.8 SEC (9.9-13.0)
[2021-01-28 06:18] LABS: Anion Gap 9 (12-20); Blood Urea Nitrogen 14 mg/dL (9-16); Calcium 9.5 mg/dL (8.4-10.2); Carbon Dioxide 41 mmol/L (22-29); Chloride 98 mmol/L (96-108); Creatinine Clr Calc Pharmacy 69.9; Estimated Glomerular Filt Rate > 60; Glucose Random 108 mg/dL (60-115); Potassium 3.4 mmol/L (3.3-5.1); Sodium 145 mmol/L (135-145)
[2021-01-28] MEDS: Pantoprazole Sodium 40 MG/10 ML VIAL IVPUSH ×2 (06:30→17:12)
[2021-01-28 07:26] LABS: Glucose, Whole Blood 111 mg/dL (60-115)
[2021-01-28] MEDS: Furosemide 20 MG/2 ML VIAL IVPUSH (08:10)
[2021-01-28] MEDS: 0.9 % Sodium Chloride Flush 3 ML SYRINGE IVFLUSH ×2 (08:10→17:12)
--- NOTE | 2021-01-28 11:28 | MHC.CM.PN ---
Per ROUNDS discussion, Patient is having a Thorocentesis today and not yet medically cleared for dc. Returning to [facility] at [facility] is the goal for dc and CM will continue to follow for possible need to adjust the dc plan.
[2021-01-28] MEDS: Lidocaine HCl 1 % MPF 5 ML VIAL SUBCUT (11:49)
[2021-01-28 11:55] LABS: Glucose, Whole Blood 101 mg/dL (60-115)
[2021-01-28 12:57] LABS: Vancomycin Trough 20.6 mcg/mL (10.0-20.0)
--- NOTE | 2021-01-28 13:15 | W.PM.IDCN ---
History of Present Illness Data of Consult Service Date: 01/28/21 Requesting physician: Osvaldo Holland Primary Care Provider: Alexa Barajas NP HPI Reason for consult: foot infection He presents with shortness of breath for two days and found to have CHF concerns He has heel ulcer and is getting IV antibiotics through 02/09 The area has no changes Review of Systems Review of Systems: Yes all other systems are reviewed and are negative [facility]LY [facility] Past Medical History Medical History (Updated 02/01/21 @ 00:02 by Aniket Gore) Acute and chronic respiratory failure with hypercapnia Acute on chronic diastolic (congestive) heart failure Afib Alcoholic cardiomyopathy BPH (benign prostatic hyperplasia) CHF (congestive heart failure) CHF exacerbation COPD (chronic obstructive pulmonary disease) COVID-19 Diabetes 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 Father No problems noted. Son No problems noted. Son No problems noted. Son No problems noted. Son No problems noted. Daughter No problems noted. Daughter No problems noted. Daughter No problems noted. Family history: reviewed and not pertinent Surgical History Surgical History H/O abdominal surgery H/O angioplasty H/O cataract extraction Hx of BKA Social History Social History Household Members: Other Housing: Long-Term Do you presently have visiting nurse or other home services: No Alcohol intake: never Patient Tobacco Use Status: Never used Tobacco Advance Directives Date on File: 03/28/20 service: No Current occupational status: retired Meds Allergies Allergy/AdvReac Type Severity Reaction Status Date / Time bee pollen [BEE STINGS] Allergy Severe ANAPHYLAXIS Verified 07/04/20 13:06 doxycycline [DOXYCYCLINE] Allergy Unknown ? ALLERGY Verified 07/04/20 13:06 PER [employer] Allergy Mild ITCHING Uncoded 03/28/20 19:48 bee venom Allergy Unknown unspecified Uncoded 03/28/20 19:48 sardines Allergy Unknown itching Uncoded 03/28/20 19:48 Active Medications: Current Medications Generic Name Dose Route Start Last Admin Trade Name Freyomaira PRN Reason Stop Dose Admin Acetaminophen 650 mg 01/25/21 12:49 Acetaminophen 325 Mg Tablet PO Q6H PRN Pain, Mild (Pain Scale 1-3) Al Hydroxide/Mg Hydroxide 15 ml 01/26/21 12:55 01/26/21 13:19 Magnesium Hydrox/Alum Hydrox 30 Ml Oral.Susp PO 15 ml Q4H PRN Administration upset stomach Apixaban 5 mg 01/25/21 12:55 01/25/21 14:44 Apixaban 5 Mg Tablet PO Not Given BID BREE Furosemide 20 mg 01/27/21 09:00 01/28/21 08:10 Furosemide 20 Mg/2 Ml Vial IVPUSH 20 mg DAILY BREE Administration Protocol Meropenem 1 gm/ Sodium 100 mls @ 100 mls/hr 01/25/21 15:00 01/28/21 08:06 Chloride IV Infused Q8H BREE Infusion Ondansetron HCl 4 mg 01/25/21 12:49 Ondansetron Hcl 4 Mg/2 Ml Vial IVPUSH Q8H PRN Nausea and Vomiting Pantoprazole Sodium 40 mg 01/26/21 06:30 01/28/21 06:30 Pantoprazole Sodium 40 Mg/10 Ml Vial IVPUSH 40 mg BID@0630,1630 BREE Administration Sodium Chloride 3 ml 01/25/21 16:00 01/28/21 08:10 0.9 % Sodium Chloride Flush 3 Ml Syringe IVFLUSH 3 ml QSHIFT BREE Administration Vancomycin HCl 500 mg 01/26/21 13:00 01/27/21 14:12 Vancomycin Hcl 500 Mg/10 Ml Vial IV 500 mg Q24H BREE Administration Home Medications Medication Instructions Recorded Confirmed Last Taken Type albuterol sulfate 90 mcg/actuation 2 puff PO Q4H PRN 03/28/20 01/25/21 Unknown History aerosol inhaler ascorbic acid (vitamin C) 500 mg 500 mg PO BID 03/28/20 01/25/21 Unknown History tablet (Vitamin C) cholecalciferol (vitamin D3) 25 25 mcg PO DAILY 03/28/20 01/25/21 Unknown History mcg (1,000 unit) tablet ferrous sulfate 325 mg (65 mg 325 mg PO BID 03/28/20 01/25/21 Unknown History iron) tablet melatonin 5 mg tablet 5 mg PO BEDTIME 03/28/20 01/25/21 Unknown History metformin 500 mg tablet 500 mg PO DAILY@1700 03/28/20 01/25/21 Unknown History potassium chloride 20 mEq 20 meq PO BEDTIME 03/28/20 01/25/21 Unknown History tablet,extended release(part/cryst) risperidone 0.25 mg tablet 0.25 mg PO BEDTIME 03/28/20 01/25/21 Unknown History tamsulosin 0.4 mg capsule 0.4 mg PO DAILY@1700 03/28/20 01/25/21 Unknown History amlodipine 10 mg tablet 1 tab PO DAILY 12/25/20 01/25/21 Unknown History chlorhexidine gluconate 4 % 1 appl TOPICAL DAILY 12/25/20 01/25/21 Unknown History topical liquid (Hibiclens) vancomycin 500 mg intravenous 500 mg IV DAILY 01/20/21 01/25/21 Unknown History solution acetaminophen 325 mg tablet (Mapap 650 mg PO Q6H PRN 01/25/21 01/25/21 Unknown History (acetaminophen)) ammonium lactate 12 % lotion 1 appl TOPICAL BID 01/25/21 01/25/21 Unknown History oxycodone 5 mg tablet 5 mg PO Q4H PRN 01/25/21 01/25/21 Unknown History Physical Exam Vital Signs: Vital Signs: Last Vital Signs Temp 96.5 F L 01/28/21 11:49 Pulse 86 01/28/21 11:49 Resp 20 01/28/21 11:49 BP 145/65 H 01/28/21 11:49 Pulse Ox 94 01/28/21 11:49 Oxygen Flow Rate 4 01/25/21 01:17 Body Mass Index 28.9 Const: General: cooperative HENMT: Head: Yes normal to inspection Mouth: Normal oral and palatal mucosa present Eyes: General: appearance normal, both eyes and all related structures Resp: Effort & Inspection: normal respiratory effort Cardio: Rate: regular rate Rhythm: regular rhythm GI: Palpation (GI): Soft to palpation and nontender Extrem: Other: left heel ulcer,same Results Labs CBC & Chem 7: 01/29/21 06:11 01/30/21 08:58 Labs: BMP 01/28/21 04:54 Sodium 145 Potassium 3.4 Chloride 98 Carbon Dioxide 41 H* BUN 14 Creatinine 0.84 Calcium 9.5 Microbiology Microbiology Results: Microbiology 01/25/21 01:25 Urine Catheterized - Hodge Catheter Urine Culture - Final Viviana tropicalis 01/25/21 01:25 Blood - Venous Blood Culture - Preliminary No growth after 48 hours. 01/25/21 01:25 Blood - Venous Blood Culture - Preliminary No growth after 48 hours. 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
--- NOTE | 2021-01-28 13:55 | MHC.CLN ---
NUTRITION/CONSULT ADDED 2 GRAM SODIUM TO DIET ORDER PER PRIOR ADMISSION-DX CHF AND RX FOR DIURETIC. DIET=DIABETIC 1800 KCAL, 2 GRAM SODIUM. STAGE II TO COCCYX. ADDED GLUCERNA 240 ML TID AND ARLENE 1 PACKET BID (871 KCAL, 35 G PROTEIN).
--- NOTE | 2021-01-28 14:14 | P.PNIM_ITS ---
Progress Note: A&P (1) Pleural effusion: Status: Acute Assessment and Plan: This is an 85 yo M with a PMH of diastolic CHF, COPD, probable undiagnosed central vs obstructive sleep apnea, osteomyelitis of the LLE (being treated with IV Ertapenam + Vancomcyin -- end date of 02/09/2021) who presents to the hospital less than 24 hours after admission for hypoxia. He is admitted for further work up. Pleural effusions Thoracentesis done labs/cytology pending Acute toxic/metabolic encephalopathy. much more awake today no definitive cause but suspected secondary to his respiratory issues avoid sedative meds passed nursing bedside swallow eval Acute on Chronic Respiratory failure with hypoxia and hypercarbia Was placed on bipap with good effect. Will continue oxygen by NC and bipap as needed Metabolic alkalosis.?improving Likely secondary to diuresis Stop Lasix drip, add po lasix Acute on Chronic diastolic CHF. Not in overt failure seen and evaluated by cardiology his BNP is decreased, but his CT/CXR still show similar findings A. Fib with bradycardia Usually while sleeping will continue with Eliquis once his hematuria improves Hematuria, likely from traumatic diez cath negative urinalysis no acute findings on CT scan stable HH Abdominal pain no acute findings on CT scan has stool throughout colon, possibly causing DM keep NPO for now hold metformin Osteomyelitis, not acute complete Rx with vancomcyin / Ertapenam (which is NF and will be replaced with Merrem) -? End date 02/09 Dark stool occult pos repeat h/h now IV ppi and will consult GI DISPO Back to [facility] when medically stable Full Code DVT pptx, Eliquis once GI issues resolved?<Gracia Oliveira Subjective Subjective Date of Service: 01/28/21 Interval History: Follow up encephalopathy awake and conversive Physical Exam Vital Signs: Vital Signs: Last Vital Signs Temp 96.5 F L 01/28/21 11:49 Pulse 86 01/28/21 11:49 Resp 20 01/28/21 11:49 BP 145/65 H 01/28/21 11:49 Pulse Ox 94 01/28/21 11:49 Oxygen Flow Rate 4 01/25/21 01:17 Body Mass Index 28.9 Appearing in no acute distress lung sounds are clear to auscultation heart regular rate rhythm, clear S1, S2 positive bowel sounds, abdomen is soft, nontender neuro patient is alert x3, no focal deficits Objective Data Current Medications Generic Name Dose Route Start Last Admin Trade Name Andreina PRN Reason Stop Dose Admin Acetaminophen 650 mg 01/25/21 12:49 Acetaminophen 325 Mg Tablet PO Q6H PRN Pain, Mild (Pain Scale 1-3) Al Hydroxide/Mg Hydroxide 15 ml 01/26/21 12:55 01/26/21 13:19 Magnesium Hydrox/Alum Hydrox 30 Ml Oral.Susp PO 15 ml Q4H PRN Administration upset stomach Apixaban 5 mg 01/25/21 12:55 01/25/21 14:44 Apixaban 5 Mg Tablet PO Not Given BID BREE Furosemide 20 mg 01/27/21 09:00 01/28/21 08:10 Furosemide 20 Mg/2 Ml Vial IVPUSH 20 mg DAILY BREE Administration Protocol Meropenem 1 gm/ Sodium 100 mls @ 100 mls/hr 01/25/21 15:00 01/28/21 08:06 Chloride IV Infused Q8H BREE Infusion Ondansetron HCl 4 mg 01/25/21 12:49 Ondansetron Hcl 4 Mg/2 Ml Vial IVPUSH Q8H PRN Nausea and Vomiting Pantoprazole Sodium 40 mg 01/26/21 06:30 01/28/21 06:30 Pantoprazole Sodium 40 Mg/10 Ml Vial IVPUSH 40 mg BID@0630,1630 BREE Administration Sodium Chloride 3 ml 01/25/21 16:00 01/28/21 08:10 0.9 % Sodium Chloride Flush 3 Ml Syringe IVFLUSH 3 ml QSHIFT BREE Administration Vancomycin HCl 500 mg 01/26/21 13:00 01/27/21 14:12 Vancomycin Hcl 500 Mg/10 Ml Vial IV 500 mg Q24H BREE Administration Labs CBC & Chem 7: 01/27/21 06:56 01/28/21 04:54 Labs: Laboratory Results - last 24 hr 01/27/21 01/27/21 01/28/21 16:09 20:20 04:54 PT 12.8 INR 1.1 Anion Gap Estim Creat Clear Calc Estimated GFR POC Glucose 136 H 107 Random Glucose Calcium Peritoneal WBC Peritoneal RBC Periton Neutrophils Periton Lymphocytes Peritoneal Monocytes Peritoneal Other Cells Vancomycin Trough 01/28/21 01/28/21 01/28/21 04:54 07:13 11:00 PT INR Anion Gap 9 L Estim Creat Clear Calc 69.9 Estimated GFR > 60 POC Glucose 111 Random Glucose 108 Calcium 9.5 Peritoneal WBC 0.424 Peritoneal RBC 0.007 Periton Neutrophils 2 Periton Lymphocytes 47 Peritoneal Monocytes 15 Peritoneal Other Cells 36 Vancomycin Trough 01/28/21 01/28/21 11:50 12:02 PT INR Anion Gap Estim Creat Clear Calc Estimated GFR POC Glucose 101 Random Glucose Calcium Peritoneal WBC Peritoneal RBC Periton Neutrophils Periton Lymphocytes Peritoneal Monocytes Peritoneal Other Cells Vancomycin Trough 20.6 H Microbiology Microbiology Results: Microbiology 01/25/21 01:25 Urine Catheterized - Diez Catheter Urine Culture - Final Viviana tropicalis 01/25/21 01:25 Blood - Venous Blood Culture - Preliminary No growth after 48 hours. 01/25/21 01:25 Blood - Venous Blood Culture - Preliminary No growth after 48 hours. Quality Stroke Does the patient have a stroke diagnosis?: No VTE Prior VTE?: No VTE Risk Level:: Medical - moderate - high VTE Device Contraindication: Treatment Not Indicated VTE Drug Contraindication: N/A - Med Ordered
[2021-01-28 14:31] LABS: BF Shift QC OK YES; Lymphocytes Pleural Fluid 47 %; Monocytes Pleural Fluid 15 %; Neutrophils Pleural Fluid 2 %; Other Cells Plerual Fl 36 %; RBC Pleural Fluid 0.007 X10*3/uL; WBC Pleural Fluid 0.424 X10*3/uL
[2021-01-28 14:32] LABS: MN% 89.3 %; PMN% 10.7 %
[2021-01-28 16:20] LABS: Glucose, Whole Blood 151 mg/dL (60-115)
[2021-01-28 20:16] LABS: Glucose, Whole Blood 119 mg/dL (60-115)
[2021-01-29] VITALS (7 sets, daily range): BP systolic 135–156; BP diastolic 60–94; PULSE 84–96; RESP 18–20; TEMP 36.2–37; O2SAT 94–97
--- NOTE | 2021-01-29 03:44 | PC.NURSE ---
Pt pulled out midline, no blood lost from site. Pt confused and VMT did not notify quick enough before he pulled it out. 2x2 gauze applied to site and covered with tegaderm. pt still has working 20G IV to left forearm.
[2021-01-29 06:47] LABS: Total Protein Pleural Fluid 2.3
[2021-01-29 06:48] LABS: LDH Pleural Fluid 88
[2021-01-29 06:49] LABS: Glucose Pleural Fluid 116
[2021-01-29 07:16] LABS: Hematocrit 28.7 % (42-52); Hemoglobin 8.6 g/dl (14.0-18.0); Mean Corpuscular Hemoglobin 25.1 pg (27.0-33.0); Mean Corpuscular Volume 83.7 fL (80-98); Mean Platelet Volume 10.4 fL (9.4-12.4); Platelet Count 236 X10*3/uL (160-400); Red Blood Count 3.43 X10*6/uL (4.60-5.80); Red Cell Distribution Width 16.3 % (11.0-16.0); White Blood Count 5.6 X10*3/uL (4.8-10.8)
[2021-01-29 07:23] LABS: INTERNATIONAL NORM RATIO 1.1 (0.9-1.1)
[2021-01-29] MEDS: Furosemide 20 MG/2 ML VIAL IVPUSH (07:35)
[2021-01-29] MEDS: 0.9 % Sodium Chloride Flush 3 ML SYRINGE IVFLUSH ×3 (07:35→21:24)
[2021-01-29 07:38] LABS: Anion Gap 12 (12-20); Blood Urea Nitrogen 13 mg/dL (9-16); Calcium 9.1 mg/dL (8.4-10.2); Carbon Dioxide 37 mmol/L (22-29); Chloride 98 mmol/L (96-108); Creatinine Clr Calc Pharmacy 65.2; Estimated Glomerular Filt Rate > 60; Glucose Random 128 mg/dL (60-115); Potassium 3.7 mmol/L (3.3-5.1); Sodium 143 mmol/L (135-145)
[2021-01-29 07:38] LABS: Glucose, Whole Blood 110 mg/dL (60-115)
--- NOTE | 2021-01-29 11:12 | PM.IMPN ---
Progress Note: A&P (1) Pleural effusion: Status: Acute Assessment and Plan: This is an 85 yo M with a PMH of diastolic CHF, COPD, probable undiagnosed central vs obstructive sleep apnea, osteomyelitis of the LLE (being treated with IV Ertapenam + Vancomcyin -- end date of 02/09/2021) who presents to the hospital less than 24 hours after admission for hypoxia. He is admitted for further work up. Acute toxic/metabolic encephalopathy secondary to his hypoxia and hypercarbia. Awake and conversive avoid sedative meds passed nursing bedside swallow eval Pleural effusions Thoracentesis done 700ml out labs/cytology pending Acute on Chronic Respiratory failure with hypoxia and hypercarbia Was placed on bipap with good effect. Will continue oxygen by NC and bipap as needed Has just been on cpap at night Metabolic alkalosis. within acceptable limits. Likely secondary to diuresis Stop Lasix drip Acute on Chronic diastolic CHF. Not in overt failure seen and evaluated by cardiology his BNP is decreased, but his CT/CXR still show similar findings po lasix A. Fib with bradycardia Usually while sleeping eliquis Hematuria, likely from traumatic diez cath negative urinalysis no acute findings on CT scan stable HH DM ada diet hold metformin Osteomyelitis, not acute complete Rx with vancomcyin / Ertapenam (which is NF and will be replaced with Merrem) -? End date 02/09 Dark stool occult pos repeat h/h now IV ppi and will consult GI DISPO Back to [facility] possibly tomorrow if medically stable Full Code DVT pptx, Eliquis Subjective Subjective Date of Service: 01/29/21 Interval History: Follow up encephalopathy resolving much more awake and conversing Physical Exam Vital Signs: Vital Signs: Last Vital Signs Temp 97.9 F 01/29/21 10:58 Pulse 96 01/29/21 10:58 Resp 18 01/29/21 10:58 BP 137/65 01/29/21 10:58 Pulse Ox 96 01/29/21 10:58 Oxygen Flow Rate 4 01/25/21 01:17 Body Mass Index 28.9 Appearing in no acute distress lung sounds normal expansion heart regular rate rhythm, clear S1, S2 positive bowel sounds, abdomen is soft, nontender neuro patient is alert x3, no focal deficits Objective Data Current Medications Generic Name Dose Route Start Last Admin Trade Name Freq PRN Reason Stop Dose Admin Acetaminophen 650 mg 01/25/21 12:49 Acetaminophen 325 Mg Tablet PO Q6H PRN Pain, Mild (Pain Scale 1-3) Al Hydroxide/Mg Hydroxide 15 ml 01/26/21 12:55 01/26/21 13:19 Magnesium Hydrox/Alum Hydrox 30 Ml Oral.Susp PO 15 ml Q4H PRN Administration upset stomach Apixaban 5 mg 01/25/21 12:55 01/25/21 14:44 Apixaban 5 Mg Tablet PO Not Given BID [facility] Furosemide 20 mg 01/27/21 09:00 01/29/21 07:35 Furosemide 20 Mg/2 Ml Vial IVPUSH 20 mg DAILY BREE Administration Protocol Meropenem 1 gm/ Sodium 100 mls @ 100 mls/hr 01/25/21 15:00 01/29/21 07:35 Chloride IV Infused Q8H BREE Infusion Ondansetron HCl 4 mg 01/25/21 12:49 Ondansetron Hcl 4 Mg/2 Ml Vial IVPUSH Q8H PRN Nausea and Vomiting Sodium Chloride 3 ml 01/25/21 16:00 01/29/21 07:35 0.9 % Sodium Chloride Flush 3 Ml Syringe IVFLUSH 3 ml QSHIFT BREE Administration Vancomycin HCl 500 mg 01/26/21 13:00 01/28/21 14:22 Vancomycin Hcl 500 Mg/10 Ml Vial IV 500 mg Q24H BREE Administration Labs CBC & Chem 7: 01/29/21 06:11 01/29/21 06:11 Labs: Laboratory Results - last 24 hr 01/28/21 01/28/21 01/28/21 11:00 11:00 11:00 MCV MCH MCHC RDW Plt Count MPV Absolute Nucleated RBC Nucleated RBC % (auto) PT INR Anion Gap Estim Creat Clear Calc Estimated GFR POC Glucose Random Glucose Calcium Peritoneal WBC Cancelled Peritoneal RBC Cancelled Periton Neutrophils Cancelled Periton Lymphocytes Cancelled Peritoneal Monocytes Cancelled Peritoneal Eosinophils Cancelled Peritoneal Basophils Cancelled Peritoneal Other Cells Cancelled Peritoneal Tot Protein Cancelled Peritoneal LDH Cancelled Peritoneal Glucose Cancelled Pleural WBC Pleural RBC Pleural Neutrophils Pleural Lymphocytes Pleural Monocytes Pleural Other Cells Pleural Total Protein 2.3 Pleural LDH 88 Pleural Glucose 116 Vancomycin Trough 01/28/21 01/28/21 01/28/21 11:47 11:50 12:02 MCV MCH MCHC RDW Plt Count MPV Absolute Nucleated RBC Nucleated RBC % (auto) PT INR Anion Gap Estim Creat Clear Calc Estimated GFR POC Glucose 101 Random Glucose Calcium Peritoneal WBC Peritoneal RBC Periton Neutrophils Periton Lymphocytes Peritoneal Monocytes Peritoneal Eosinophils Peritoneal Basophils Peritoneal Other Cells Peritoneal Tot Protein Peritoneal LDH Peritoneal Glucose Pleural WBC 0.424 Pleural RBC 0.007 Pleural Neutrophils 2 Pleural Lymphocytes 47 Pleural Monocytes 15 Pleural Other Cells 36 Pleural Total Protein Pleural LDH Pleural Glucose Vancomycin Trough 20.6 H 01/28/21 01/28/21 01/29/21 16:06 20:06 06:11 MCV MCH MCHC RDW Plt Count MPV Absolute Nucleated RBC Nucleated RBC % (auto) PT 13.0 INR 1.1 Anion Gap Estim Creat Clear Calc Estimated GFR POC Glucose 151 H 119 H Random Glucose Calcium Peritoneal WBC Peritoneal RBC Periton Neutrophils Periton Lymphocytes Peritoneal Monocytes Peritoneal Eosinophils Peritoneal Basophils Peritoneal Other Cells Peritoneal Tot Protein Peritoneal LDH Peritoneal Glucose Pleural WBC Pleural RBC Pleural Neutrophils Pleural Lymphocytes Pleural Monocytes Pleural Other Cells Pleural Total Protein Pleural LDH Pleural Glucose Vancomycin Trough 01/29/21 01/29/21 01/29/21 06:11 06:11 07:15 MCV 83.7 MCH 25.1 L MCHC 30.0 L RDW 16.3 H Plt Count 236 MPV 10.4 Absolute Nucleated RBC 0.000 Nucleated RBC % (auto) 0.0 PT INR Anion Gap 12 Estim Creat Clear Calc 65.2 Estimated GFR > 60 POC Glucose 110 Random Glucose 128 H Calcium 9.1 Peritoneal WBC Peritoneal RBC Periton Neutrophils Periton Lymphocytes Peritoneal Monocytes Peritoneal Eosinophils Peritoneal Basophils Peritoneal Other Cells Peritoneal Tot Protein Peritoneal LDH Peritoneal Glucose Pleural WBC Pleural RBC Pleural Neutrophils Pleural Lymphocytes Pleural Monocytes Pleural Other Cells Pleural Total Protein Pleural LDH Pleural Glucose Vancomycin Trough Microbiology Microbiology Results: Microbiology 01/28/21 11:00 Thoracentesis Fluid Gram Stain - Final 01/28/21 11:00 Thoracentesis Fluid Routine Culture - Preliminary No growth to date. 01/28/21 11:00 Thoracentesis Fluid Anaerobic Culture - Preliminary No growth to date. 01/25/21 01:25 Urine Catheterized - Diez Catheter Urine Culture - Final Viviana tropicalis 01/25/21 01:25 Blood - Venous Blood Culture - Preliminary No growth after 48 hours. 01/25/21 01:25 Blood - Venous Blood Culture - Preliminary No growth after 48 hours. Quality Stroke Does the patient have a stroke diagnosis?: No VTE Prior VTE?: No VTE Risk Level:: Medical - moderate - high VTE Device Contraindication: Treatment Not Indicated VTE Drug Contraindication: N/A - Med Ordered
[2021-01-29 11:13] LABS: Glucose, Whole Blood 147 mg/dL (60-115)
--- NOTE | 2021-01-29 14:17 | PM.DS ---
DS: Providers Provider Date of Service: 01/31/21 <Osvaldo Holland MD - Last Filed: 01/31/21 11:26> Date of admission: 01/25/21 12:47 <Gracia Camacho NP - Last Filed: 01/29/21 14:26> Date of discharge: 01/31/21 <Osvaldo Holland MD - Last Filed: 01/31/21 11:26> Primary care physician: Alexa Barajas NP <Gracia Camacho NP - Last Filed: 01/29/21 14:26> Consults: 01/25/21 13:48 Consult to Pulmonology Routine Consulting Provider: Ervin Camacho Reason for consultation: resp. failure, bradycardia 01/25/21 14:05 Consult to Infectious Diseases Routine Consulting Provider: Myrna Casper Reason for consultation: restricted abx 01/25/21 15:15 Consult to Cardiology Routine Consulting Provider: [facility] Cardiovascular Services Reason for consultation: CHF, just discharged from the hospital, slow a. fib with pauses 01/25/21 16:27 Consult to Gastroenterology Routine Consulting Provider: Riley White Reason for consultation: black tarry stools 01/29/21 12:48 Consult to General Surgery Routine Consulting Provider: Asim Wakefield Reason for consultation: left foot wound debridement Has provider been notified: No <Gracia Camacho NP - Last Filed: 01/29/21 14:26> DS: Diagnosis Discharge Diagnosis (1) Pleural effusion: Status: Acute <Gracia Camacho NP - Last Filed: 01/29/21 14:26> DS: Medications Discharge Medications Home Medications: Home Medications Medication Instructions Recorded Confirmed albuterol sulfate 90 mcg/actuation 2 puff PO Q4H PRN 03/28/20 01/25/21 aerosol inhaler ascorbic acid (vitamin C) 500 mg 500 mg PO BID 03/28/20 01/25/21 tablet (Vitamin C) cholecalciferol (vitamin D3) 25 25 mcg PO DAILY 03/28/20 01/25/21 mcg (1,000 unit) tablet ferrous sulfate 325 mg (65 mg 325 mg PO BID 03/28/20 01/25/21 iron) tablet melatonin 5 mg tablet 5 mg PO BEDTIME 03/28/20 01/25/21 metformin 500 mg tablet 500 mg PO DAILY@1700 03/28/20 01/25/21 potassium chloride 20 mEq 20 meq PO BEDTIME 03/28/20 01/25/21 tablet,extended release(part/cryst) risperidone 0.25 mg tablet 0.25 mg PO BEDTIME 03/28/20 01/25/21 tamsulosin 0.4 mg capsule 0.4 mg PO DAILY@1700 03/28/20 01/25/21 amlodipine 10 mg tablet 1 tab PO DAILY 12/25/20 01/25/21 chlorhexidine gluconate 4 % 1 appl TOPICAL DAILY 12/25/20 01/25/21 topical liquid (Hibiclens) vancomycin 500 mg intravenous 500 mg IV DAILY 01/20/21 01/25/21 solution acetaminophen 325 mg tablet (Mapap 650 mg PO Q6H PRN 01/25/21 01/25/21 (acetaminophen)) ammonium lactate 12 % lotion 1 appl TOPICAL BID 01/25/21 01/25/21 atenolol 25 mg tablet 1 tab PO DAILY 01/25/21 01/25/21 fluoxetine 20 mg capsule 1 cap PO DAILY 01/25/21 01/25/21 furosemide 20 mg tablet 1 tab PO DAILY 01/25/21 01/25/21 gabapentin 300 mg capsule 300 mg PO BID 01/25/21 01/25/21 gabapentin 600 mg tablet 1 tab PO BEDTIME 01/25/21 01/25/21 oxycodone 5 mg tablet 5 mg PO Q4H PRN 01/25/21 01/25/21 Previous Rx's Medication Instructions Recorded apixaban 5 mg tablet (Eliquis) 5 mg PO BID #180 tab 09/21/20 atorvastatin 20 mg tablet 20 mg PO QAM #90 tab 09/21/20 ertapenem 1 gram solution for 1 g IV DAILY 37 Days #37 ea 01/02/21 injection sodium chloride 0.9 % (flush) 5 ml IVFLUSH TID #500 ml 01/02/21 (Normal Saline Flush) fluoxetine 10 mg capsule 10 mg PO DAILY #30 cap 01/24/21 furosemide 40 mg tablet 40 mg PO BID@0900,1800 #60 tab 01/24/21 <Gracia Camacho NP - Last Filed: 01/29/21 14:26> DS: Summary Hospital Course Hospital Course: HPI This is an 85 yo M with a PMH as outlined below who presents to the hospital less than 24 hours after being discharged to SNF after an inpatient admission for respriatory failure, CHF and encephalopathy. He is well known to me from his prior admission. On 01/24/2021, when the patient was discharged -- his respiratory status was stable and his mentation was significantly improved. Clear instructions were written to continue his oxygenation at 2-4L to maintain saturation above 90. Per the ED providers note -- it appears that he was found by SNF staff at 84% on room air. It is unclear if the patient was on oxygen at this time and had pulled his O2 off or in fact, he was not placed on oxygen. Upon arrival to the ED (arriaved on NC 15L with sats @ 99%). In the ED, he was noted to be tachypenic and his saturations decreased to below 88 so he was switched to HFNC. He had a CXR checked which showed bronchial wall thickening, R basilar opacity which could represent superimposed atelectasis or pneumonia. He was given a dose of IV lasix and admission was requested (over night). Of note, patient had a diez catheter in place from [facility] with balloon deflated, which was accidentally pulled. A diez catheter was place and subsequently he developed hematuria. Furthermore, the patient was noted to have periods of bradycardia with pauses while sleeping. The patient is seen and examined in the ED multiple times on the day of admission, initially around 10AM. At that time, he was resting comfortably without any distress but was confused. He was opening his eyes, but unable to communicate in a meaningful way. He was on HFNC at this time. Subsequently, an ABG, CT head and CT chest were checked. His ABG showed mild acidosis, with increase in his pCO2 and he was placed on BIPAP. Shortly thereafter, the patient's VBG showed improvement as did his mentation. He was awake and alert, he was complaining of abdominal pain. The case was reviewed with Dr. Zarate from ICU who evaluated the patient and felt that based off his last Echo + CT chest findings (the patient likely has fluid overload and recommended IV lasix in addition to aldactone) . Hospital Course by Discharge diagnosis: Acute on Chronic Respiratory failure with hypoxia and hypercarbia. Multifactorial secondary to pleural effusion, congestive heart failure and COPD. Patient was initially treated with IV diuretics and subsequently underwent diagnostic and therapeutic paracentesis. His paracentesis cultures are negative at the time of discharge and by light's criteria they indicate a transudative process. He will be discharged on oral Lasix 40 mg daily. In regards to his hypercarbia and hypoxia, he is tolerating room air at this time. He was evaluated for nocturnal BiPAP which he refused. A blood gas on the day of discharge shows CO2. He will need to follow up in the Pulmonary Clinic with Dr. Ervin Camacho for set up for a sleep study. He can continue to use his oxygen on a PRN basis wit saturation goal 88-92. DO NOT OVER OXYGENATE HIM as he has a history of CO2 retention. Encephalopathy. Multifactorial including recent hospitalization and prison facility stay, also due to hypoxia and CO2 all of which have significantly improved. Additionally his baseline medications may contribute. His gabapentin has been tapered and completely discontinued at the time of discharge. He may continue to use his rest per all at bedtime as needed. Pleural effusion As above, indicating a transudative process. Repeat chest x-ray shows Acute on Chronic diastolic CHF Treated with IV Lasix drip initially and subsequently transitioned to oral Lasix 40 mg daily A. Fib with bradycardia. He had some episodes of bradycardia which were likely secondary to poor cardiac output initially. Most of these were at night time and he did have an episode of a 2nd pause however this quickly resolved and his heart rate remained above 60. in terms of his atrial fibrillation he never had exacerbation. He should continue his beta-liat and apixaban 5 mg twice daily. Hematuria Secondary to trauma from Diez catheter. Resolved. Osteomyelitis Complete his course of antibiotics with Invanz and vancomycin. Continue with weekly chemistries and vancomycin troughs. End date -- 02/09/2021. <Gracia Camacho NP - Last Filed: 01/29/21 14:26> Time Spent with Patient Time attestation: Total time spent providing and/or coordinating discharge services: <Gracia Camacho NP - Last Filed: 01/29/21 14:26> Discharge coordination time: Greater than 30 minutes <Osvaldo Holland MD - Last Filed: 01/31/21 11:26> Quality: Stroke Does the patient have a stroke diagnosis?: No <Osvaldo Holland MD - Last Filed: 01/31/21 11:26> Physical Exam Vital Signs: Vital Signs: Last Vital Signs Temp 97.9 F 01/29/21 10:58 Pulse 96 01/29/21 10:58 Resp 18 01/29/21 10:58 BP 137/65 01/29/21 10:58 Pulse Ox 96 01/29/21 10:58 Oxygen Flow Rate 4 01/25/21 01:17 Body Mass Index 28.9 <Gracia Camacho NP - Last Filed: 01/29/21 14:26> Const: Other: General - no acute distress, appears comfortable Cardiovascular - regular rate and rhythm, S1-S2 Lungs - normal respiratory effort, clear to auscultation bilaterally, no wheezing Abdomen - soft, nontender, no rebound or guarding Extremities - Open wound lateral aspect 1st metatarsal head, metatarsal head and distal shaft are exposed in wound.? Peripheral soft tissues are clean and granulating.? Pressure ulcer left heel:? Generally clean with pale granulating wound bed. Neuro - awake and alert, no focal deficits <Osvaldo Holland MD - Last Filed: 01/31/21 11:26> DS: Data Data Completed and Pending Completed studies during hospitalization [Text1]: Procedures Insertion of Infusion Device into Superior Vena Cava, Percutaneous Approach (12/25/20) Transfusion of Nonautologous Red Blood Cells into Peripheral Vein, Percutaneous Approach (12/25/20) <Gracia Camacho NP - Last Filed: 01/29/21 14:26> Labs on day of discharge: Laboratory Results - last 24 hr 01/28/21 01/28/21 01/28/21 11:00 11:00 11:00 WBC RBC Hgb Hct MCV MCH MCHC RDW Plt Count MPV Absolute Nucleated RBC Nucleated RBC % (auto) PT INR Sodium Potassium Chloride Carbon Dioxide Anion Gap BUN Creatinine Estim Creat Clear Calc Estimated GFR POC Glucose Random Glucose Calcium Peritoneal WBC Cancelled Peritoneal RBC Cancelled Periton Neutrophils Cancelled Periton Lymphocytes Cancelled Peritoneal Monocytes Cancelled Peritoneal Eosinophils Cancelled Peritoneal Basophils Cancelled Peritoneal Other Cells Cancelled Peritoneal Tot Protein Cancelled Peritoneal LDH Cancelled Peritoneal Glucose Cancelled Pleural WBC Pleural RBC Pleural Neutrophils Pleural Lymphocytes Pleural Monocytes Pleural Other Cells Pleural Total Protein 2.3 Pleural LDH 88 Pleural Glucose 116 01/28/21 01/28/21 01/28/21 11:47 16:06 20:06 WBC RBC Hgb Hct MCV MCH MCHC RDW Plt Count MPV Absolute Nucleated RBC Nucleated RBC % (auto) PT INR Sodium Potassium Chloride Carbon Dioxide Anion Gap BUN Creatinine Estim Creat Clear Calc Estimated GFR POC Glucose 151 H 119 H Random Glucose Calcium Peritoneal WBC Peritoneal RBC Periton Neutrophils Periton Lymphocytes Peritoneal Monocytes Peritoneal Eosinophils Peritoneal Basophils Peritoneal Other Cells Peritoneal Tot Protein Peritoneal LDH Peritoneal Glucose Pleural WBC 0.424 Pleural RBC 0.007 Pleural Neutrophils 2 Pleural Lymphocytes 47 Pleural Monocytes 15 Pleural Other Cells 36 Pleural Total Protein Pleural LDH Pleural Glucose 01/29/21 01/29/21 01/29/21 06:11 06:11 06:11 WBC 5.6 RBC 3.43 L Hgb 8.6 L Hct 28.7 L MCV 83.7 MCH 25.1 L MCHC 30.0 L RDW 16.3 H Plt Count 236 MPV 10.4 Absolute Nucleated RBC 0.000 Nucleated RBC % (auto) 0.0 PT 13.0 INR 1.1 Sodium 143 Potassium 3.7 Chloride 98 Carbon Dioxide 37 H Anion Gap 12 BUN 13 Creatinine 0.90 Estim Creat Clear Calc 65.2 Estimated GFR > 60 POC Glucose Random Glucose 128 H Calcium 9.1 Peritoneal WBC Peritoneal RBC Periton Neutrophils Periton Lymphocytes Peritoneal Monocytes Peritoneal Eosinophils Peritoneal Basophils Peritoneal Other Cells Peritoneal Tot Protein Peritoneal LDH Peritoneal Glucose Pleural WBC Pleural RBC Pleural Neutrophils Pleural Lymphocytes Pleural Monocytes Pleural Other Cells Pleural Total Protein Pleural LDH Pleural Glucose 01/29/21 01/29/21 07:15 10:56 WBC RBC Hgb Hct MCV MCH MCHC RDW Plt Count MPV Absolute Nucleated RBC Nucleated RBC % (auto) PT INR Sodium Potassium Chloride Carbon Dioxide Anion Gap BUN Creatinine Estim Creat Clear Calc Estimated GFR POC Glucose 110 147 H Random Glucose Calcium Peritoneal WBC Peritoneal RBC Periton Neutrophils Periton Lymphocytes Peritoneal Monocytes Peritoneal Eosinophils Peritoneal Basophils Peritoneal Other Cells Peritoneal Tot Protein Peritoneal LDH Peritoneal Glucose Pleural WBC Pleural RBC Pleural Neutrophils Pleural Lymphocytes Pleural Monocytes Pleural Other Cells Pleural Total Protein Pleural LDH Pleural Glucose Preliminary micro results at discharge 01/28/21 11:00 Routine Culture - Preliminary Thoracentesis Fluid No growth to date. Anaerobic Culture - Preliminary No growth to date. 01/25/21 01:25 Blood Culture - Preliminary Blood - Venous No growth after 48 hours. 01/25/21 01:25 Blood Culture - Preliminary Blood - Venous No growth after 48 hours. <Gracia Camacho NP - Last Filed: 01/29/21 14:26> Discharge Plan Discharge Patient Disposition: Xfer Inpatient Rehab Fac <Gracia Camacho NP - Last Filed: 01/29/21 14:26> Discharge Diagnosis: Acute on Chronic Respiratory failure with hypoxia and hypercarbia Encephalopathy Pleural effusion Metabolic alkalosis Acute on Chronic diastolic CHF A. Fib with bradycardia Hematuria Osteomyelitis <Gracia Camacho NP - Last Filed: 01/29/21 14:26> Acute on Chronic Respiratory failure with hypoxia and hypercarbia Encephalopathy Pleural effusion Metabolic alkalosis Acute on Chronic diastolic CHF A. Fib with bradycardia Hematuria Osteomyelitis <Osvaldo Holland MD - Last Filed: 01/31/21 11:26> Referrals: Alexa Barajas NP [Primary Care Provider] - 1 Week <Gracia Camacho NP - Last Filed: 01/29/21 14:26> Discharge Medications: New furosemide 40 mg Tablet 40 mg PO DAILY Qty: 30 RF: 0 omeprazole 20 mg Capsule,Delayed Release(Dr/Ec) 20 mg PO DAILY@0630 Qty: 30 RF: 0 Continued apixaban [Eliquis] 5 mg tablet 5 mg PO BID Qty: 180 RF: 3 atorvastatin 20 mg tablet 20 mg PO QAM Qty: 90 RF: 3 metformin 500 mg tablet 500 mg PO DAILY@1700 RF: 0 risperidone 0.25 mg tablet 0.25 mg PO BEDTIME RF: 0 potassium chloride 20 mEq tablet,ER particles/crystals 20 meq PO BEDTIME RF: 0 ascorbic acid (vitamin C) [Vitamin C] 500 mg tablet 500 mg PO BID RF: 0 tamsulosin 0.4 mg capsule 0.4 mg PO DAILY@1700 RF: 0 ferrous sulfate 325 mg (65 mg iron) tablet 325 mg PO BID RF: 0 albuterol sulfate 90 mcg/actuation HFA aerosol inhaler 2 puff PO Q4H PRN (Reason: Shortness Of Breath) RF: 0 cholecalciferol (vitamin D3) 25 mcg (1,000 unit) tablet 25 mcg PO DAILY RF: 0 melatonin 5 mg tablet 5 mg PO BEDTIME RF: 0 amlodipine 10 mg tablet 1 tab PO DAILY RF: 0 chlorhexidine gluconate [Hibiclens] 4 % liquid 1 appl topical DAILY RF: 0 sodium chloride 0.9 % (flush) [Normal Saline Flush] Syringe 5 ml IVFLUSH TID Qty: 500 RF: 0 ertapenem 1 gram recon soln 1 g IV DAILY 37 Days Qty: 37 RF: 0 vancomycin 500 mg Recon Soln 500 mg IV DAILY RF: 0 fluoxetine 10 mg Capsule 10 mg PO DAILY Qty: 30 RF: 0 acetaminophen [Mapap (acetaminophen)] 325 mg Tablet 650 mg PO Q6H PRN (Reason: MILD PAIN OR TEMP) RF: 0 ammonium lactate 12 % Lotion 1 appl TOPICAL BID RF: 0 oxycodone 5 mg Tablet 5 mg PO Q4H PRN (Reason: Pain (Scale Score 4-6)) RF: 0 Discontinued furosemide 40 mg Tablet 40 mg PO BID@0900,1800 Qty: 60 RF: 0 gabapentin 600 mg tablet 1 tab PO BEDTIME RF: 0 atenolol 25 mg tablet 1 tab PO DAILY RF: 0 gabapentin 300 mg capsule 300 mg PO BID RF: 0 furosemide 20 mg tablet 1 tab PO DAILY RF: 0 fluoxetine 20 mg capsule 1 cap PO DAILY RF: 0 <Gracia Camacho NP - Last Filed: 01/29/21 14:26> Discharge Orders: Discharge Order (Routine); Ordered 01/31/21 Ordered By: Osvaldo Holland <Gracia Camacho NP - Last Filed: 01/29/21 14:26> Diet: advance to usual diet <Gracia Camacho NP - Last Filed: 01/29/21 14:26> advance to usual diet <Osvaldo Holland MD - Last Filed: 01/31/21 11:26> Activity on Discharge: As tolerated <Gracia Camacho NP - Last Filed: 01/29/21 14:26> As tolerated <Osvaldo Holland MD - Last Filed: 01/31/21 11:26> Stand Alone Forms: Patient Portal Discharge page <Gracia Camacho NP - Last Filed: 01/29/21 14:26> Care Plan Goals: Complete resolution of encephalopathy <Gracia Camacho NP - Last Filed: 01/29/21 14:26> Health Concerns: Acute on Chronic Respiratory failure with hypoxia and hypercarbia Encephalopathy Pleural effusion Metabolic alkalosis Acute on Chronic diastolic CHF A. Fib with bradycardia Hematuria Osteomyelitis <Gracia Camacho NP - Last Filed: 01/29/21 14:26> Plan of Treatment: Follow up with your primary care provider as needed when discharged from rehab <Gracia Camacho NP - Last Filed: 01/29/21 14:26> Assessment: See discharge summary <Gracia Camacho NP - Last Filed: 01/29/21 14:26>
[2021-01-29 16:32] LABS: Glucose, Whole Blood 140 mg/dL (60-115)
[2021-01-29] MEDS: Tamsulosin HCL 0.4 MG CAPSULE PO (18:36)
[2021-01-29 20:11] LABS: Glucose, Whole Blood 137 mg/dL (60-115)
[2021-01-29] MEDS: risperiDONE 0.25 MG TABLET PO (21:22)
[2021-01-30] VITALS (9 sets, daily range): BP systolic 124–175; BP diastolic 62–98; PULSE 78–92; RESP 18–20; TEMP 36.1–36.6; O2SAT 90–98; BMI 28.2
[2021-01-30] MEDS: Acetaminophen 325 MG TABLET 650 MG PO ×2 (00:19→06:35)
[2021-01-30 07:22] LABS: Glucose, Whole Blood 102 mg/dL (60-115)
--- NOTE | 2021-01-30 07:33 | PC.NURSE ---
Hodge removed 0630. Pt will have until noon to void. Will pass onto Day RN.
[2021-01-30] MEDS: Atorvastatin Calcium 20 MG TABLET PO (09:48)
[2021-01-30] MEDS: Furosemide 40 MG TABLET PO (09:48)
[2021-01-30] MEDS: 0.9 % Sodium Chloride Flush 3 ML SYRINGE IVFLUSH ×3 (09:48→22:15)
[2021-01-30 10:25] LABS: Anion Gap 13 (12-20); Blood Urea Nitrogen 13 mg/dL (9-16); Calcium 8.5 mg/dL (8.4-10.2); Carbon Dioxide 32 mmol/L (22-29); Chloride 101 mmol/L (96-108); Creatinine Clr Calc Pharmacy 66.7; Estimated Glomerular Filt Rate > 60; Glucose Random 148 mg/dL (60-115); Potassium 3.7 mmol/L (3.3-5.1); Sodium 142 mmol/L (135-145)
[2021-01-30 11:18] LABS: Glucose, Whole Blood 127 mg/dL (60-115)
[2021-01-30 12:48] LABS: Lactate Dehydrogenase 188 U/L (118-273)
[2021-01-30 13:04] LABS: Vancomycin Trough 20.5 mcg/mL (10.0-20.0)
--- NOTE | 2021-01-30 13:11 | HO.MIDLINE_ITS ---
PICC Line Insertion MIDLINE INSERTION Diagnosis: OSTEOMYELITIS Indication: NEEDS IV ACCESS TO COMPLETE ANTIBIOTIC REGIMEN Pertinent Labs: REVIEWED Technique:Using sterile technique including cap and mask, glove and drape, the LEFT arm was prepped and draped in the usual sterile fashion of full barrier technique with CHG. Using ultrasound guidance, BASILIC vein access was obtained IN SINGLE ATTEMPT BY THIS RN. A SINGLE LUMEN, NON-PASV, (20G X 8CM) MIDLINE was positioned. The procedure was performed in S-272. Ultrasound was used to document vein patency and for needle entry. A formal ultrasound picture was recorded. Vascular Content Production Specialist has released the line for use and it is currently dressed with a StatLock, Tegaderm, and CHG disc. Verification has been performed for blood return and line patency. Arm Circumference: 29.5 CM Equipment: [employer] POWERGLIDE PRO MIDLINE Catheter Type: SINGLE LUMEN, NON-PASV, (20G X 8CM) Lot #: [id number]
--- NOTE | 2021-01-30 13:13 | MHC.CLN ---
F/U CONTINUE CURRENT DIET DIABETIC 1800 KCAL, 2 GRAM SODIUM. STAGE II TO COCCYX. CONTINUE GLUCERNA 240 ML TID AND ARLENE 1 PACKET BID (871 KCAL, 35 G PROTEIN).
--- NOTE | 2021-01-30 13:36 | HO.PM.IMPN ---
Subjective Subjective Date of Service: 01/30/21 Interval History: Seen and examined this morning Patient awake, alert and appeared in no acute distress No complaints at this time Physical Exam Vital Signs: Vital Signs: Last Vital Signs Temp 97.6 F 01/30/21 11:44 Pulse 92 01/30/21 11:44 Resp 20 01/30/21 11:44 BP 124/71 01/30/21 11:44 Pulse Ox 98 01/30/21 11:44 Oxygen Flow Rate 4 01/25/21 01:17 Body Mass Index 28.2 Objective Data Current Medications Generic Name Dose Route Start Last Admin Trade Name Freq PRN Reason Stop Dose Admin Acetaminophen 650 mg 01/25/21 12:49 01/30/21 06:35 Acetaminophen 325 Mg Tablet PO 650 mg Q6H PRN Administration Pain, Mild (Pain Scale 1-3) Al Hydroxide/Mg Hydroxide 15 ml 01/26/21 12:55 01/26/21 13:19 Magnesium Hydrox/Alum Hydrox 30 Ml Oral.Susp PO 15 ml Q4H PRN Administration upset stomach Apixaban 5 mg 01/25/21 12:55 01/25/21 14:44 Apixaban 5 Mg Tablet PO Not Given BID BREE Atorvastatin Calcium 20 mg 01/30/21 09:00 01/30/21 09:48 Atorvastatin Calcium 20 Mg Tablet PO 20 mg DAILY BREE Administration Furosemide 40 mg 01/30/21 09:00 01/30/21 09:48 Furosemide 40 Mg Tablet PO 40 mg DAILY BREE Administration Protocol Meropenem 1 gm/ Sodium 100 mls @ 100 mls/hr 01/25/21 15:00 01/30/21 07:34 Chloride IV Infused Q8H BREE Infusion Ondansetron HCl 4 mg 01/25/21 12:49 Ondansetron Hcl 4 Mg/2 Ml Vial IVPUSH Q8H PRN Nausea and Vomiting Risperidone 0.25 mg 01/29/21 21:00 01/29/21 21:22 Risperidone 0.25 Mg Tablet PO 0.25 mg BEDTIME BREE Administration Sodium Chloride 3 ml 01/25/21 16:00 01/30/21 09:48 0.9 % Sodium Chloride Flush 3 Ml Syringe IVFLUSH 3 ml QSHIFT BREE Administration Tamsulosin HCl 0.4 mg 01/29/21 17:00 01/29/21 18:36 Tamsulosin Hcl 0.4 Mg Capsule PO 0.4 mg DAILY@1700 [facility] Administration Vancomycin HCl 500 mg 01/31/21 09:00 Vancomycin Hcl 500 Mg/10 Ml Vial IV Q24H [facility] Labs CBC & Chem 7: 01/29/21 06:11 01/30/21 08:58 Labs: Laboratory Results - last 24 hr 01/29/21 01/29/21 01/30/21 16:29 20:03 07:13 Anion Gap Estim Creat Clear Calc Estimated GFR POC Glucose 140 H 137 H 102 Random Glucose Calcium Lactate Dehydrogenase Vancomycin Trough 01/30/21 01/30/21 01/30/21 08:58 10:44 12:18 Anion Gap 13 Estim Creat Clear Calc 66.7 Estimated GFR > 60 POC Glucose 127 H Random Glucose 148 H Calcium 8.5 D Lactate Dehydrogenase 188 Vancomycin Trough 20.5 H Microbiology Microbiology Results: Microbiology 01/28/21 11:00 Gram Stain - Final Thoracentesis Fluid Routine Culture - Final No growth after 2 days Anaerobic Culture - Preliminary No growth to date. 01/25/21 01:25 Blood Culture - Final Blood - Venous No growth after 5 days. 01/25/21 01:25 Blood Culture - Final Blood - Venous No growth after 5 days. Assessment and Plan (1) Acute and chronic respiratory failure with hypercapnia: Status: Acute Assessment and Plan: This an 85 yo M with a PMH of diastolic CHF, COPD, probable undiagnosed central vs obstructive sleep apnea, osteomyelitis of the LLE (being treated with IV Ertapenam + Vancomcyin -- end date of 02/09/2021) who presents to the hospital less than 24 hours after admission for hypoxia. He is admitted for further work up. Acute toxic/metabolic encephalopathy secondary to his hypoxia and hypercarbia. Awake and conversive at this time avoid sedative meds passed nursing bedside swallow eval Pleural effusions Thoracentesis done 700ml out no infection, likely r/t chf Acute on Chronic Respiratory failure with hypoxia and hypercarbia likely has underlying BARBARA Was placed on bipap with good effect. Will continue oxygen by NC and bipap as needed Has just been on cpap at night Attempting to set up AVAPS prior to d/c Metabolic alkalosis. within acceptable limits. Likely secondary to diuresis Stop Lasix drip Acute on Chronic diastolic CHF. Not in overt failure seen and evaluated by cardiology his BNP is decreased, but his CT/CXR still show similar findings po lasix A. Fib with bradycardia Usually while sleeping eliquis Hematuria, likely from traumatic diez cath negative urinalysis no acute findings on CT scan stable H/H DM ada diet hold metformin Osteomyelitis, not acute complete Rx with vancomcyin / Ertapenam (which is NF and will be replaced with Merrem) -? End date 02/09 Chronic wounds h/o PVD, follows with Dr. Kirkpatrick -continue local wound care, outpatient follow up with Dr. Kirkpatrick, wound clinic Dark stool occult pos. H/H stable oral PPI seen by GI, Rec conservative management. Risk outweighs benefit of egd/colonoscopy given multiple other co-morbidities. avoid aspirin, NSAIDs DISPO Back to [facility] possibly tomorrow if medically stable Full Code DVT rl, Sada Attending: Dr. Holland Quality Stroke Does the patient have a stroke diagnosis?: No VTE Prior VTE?: No VTE Risk Level:: Medical - moderate - high VTE Device Contraindication: Treatment Not Indicated VTE Drug Contraindication: N/A - Med Ordered
--- NOTE | 2021-01-30 13:57 | MHC.CM.PN ---
Male 85 DX HF DP return to [facility] via BLS. No discharge today. Patient will need BIPAP at discharge. Respiratory therapy is arranging for BIPAP. Discharge is anticipated tomorrow. Facility updated. CM will follow.
[2021-01-30 15:53] LABS: Glucose, Whole Blood 114 mg/dL (60-115)
[2021-01-30] MEDS: Heparin Sodium,Porcine Flush 50 UNITS, 0.9 % Sodium Chloride Flush 5 ML IVFLUSH ×2 (16:45→22:15)
[2021-01-30] MEDS: Tamsulosin HCL 0.4 MG CAPSULE PO (16:46)
[2021-01-30] MEDS: Artificial Tears 15 ML DROPS 1 DROP EYE-RIGHT ×2 (17:25→22:38)
[2021-01-30 20:33] LABS: Glucose, Whole Blood 117 mg/dL (60-115)
[2021-01-30] MEDS: risperiDONE 0.25 MG TABLET PO (22:15)
[2021-01-30] MEDS: Magnesium Hydrox/Alum Hydrox 30 ML ORAL.SUSP 15 ML PO (22:37)
--- NOTE | 2021-01-31 00:29 | PC.RT ---
Pt continues to be non compliant with Bipap
[2021-01-31 03:18] VITALS: BP 167/74; PULSE 80; RESP 18; TEMP 36.7; O2SAT 93
[2021-01-31 06:00] VITALS: BMI 27.3
[2021-01-31] MEDS: Omeprazole 20 MG CAPSULE.DR PO (06:25)
[2021-01-31 07:18] VITALS: BP 148/65; PULSE 74; RESP 18; TEMP 36.1; O2SAT 94
[2021-01-31 07:22] LABS: Glucose, Whole Blood 102 mg/dL (60-115)
[2021-01-31] MEDS: Furosemide 40 MG TABLET PO (08:42)
[2021-01-31] MEDS: Acetaminophen 325 MG TABLET 650 MG PO (08:42)
[2021-01-31] MEDS: Heparin Sodium,Porcine Flush 50 UNITS, 0.9 % Sodium Chloride Flush 5 ML IVFLUSH ×2 (08:44→14:46)
--- NOTE | 2021-01-31 08:50 | P.CONWO_ITS ---
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 He is easily arousable, but also drifts back to sleep easily. He denies left foot pain this morning and has no complaints of shortness of breath or chest pain. Arterial duplex studies of the left lower extremity were last done on 12/25/2020 and revealed monophasic signals in the distal superficial femoral artery and tibial vessels consistent with history of a severe peripheral arterial disease. He also has a history of osteomyelitis of the 1st metatarsal head. He has undergone vascular evaluation with Dr. Kirkpatrick, most recently about a month ago. Because of his significant comorbidities, he has not been a candidate for interventional vascular procedures. 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 Father No problems noted. Son No problems noted. Son No problems noted. Son No problems noted. Son No problems noted. Daughter No problems noted. Daughter No problems noted. Daughter No problems noted. Family history: reviewed and not pertinent Surgical History H/O abdominal surgery H/O angioplasty H/O cataract extraction Hx of BKA Social History Household Members: Other Housing: [facility] Do you presently have visiting nurse or other home services: No Alcohol intake: never Patient Tobacco Use Status: Never used Tobacco Use of substances other than those prescribed or required for medical reasons: No Currently Displaying Signs/Symptoms of Drug Intoxication Withdrawal: No Do you feel safe in your current relationship?: No Current Relationship Gnostic[employer] Healthcare Practices: adventist Advance Directives: Yes Advance Directives Information Provided: Yes Advance Directives on File: Yes Advance Directives Date on File: 03/28/20 Do you have thoughts of harming others: None Do you have a plan to hurt others: No Plan Recently lost weight without trying: No Nutrition Risks: No Nutritional Risk service: No Current occupational status: retired Meds Allergies Allergy/AdvReac Type Severity Reaction Status Date / Time bee pollen [BEE STINGS] Allergy Severe ANAPHYLAXIS Verified 07/04/20 13:06 doxycycline [DOXYCYCLINE] Allergy Unknown ? 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 [place]ARDINES Allergy Mild ITCHING Uncoded 03/28/20 19:48 bee venom Allergy Unknown unspecified Uncoded 03/28/20 19:48 sardines Allergy Unknown itching Uncoded 03/28/20 19:48 Active Medications: Current Medications Generic Name Dose Route Start Last Admin Trade Name Freq PRN Reason Stop Dose Admin Acetaminophen 650 mg 01/25/21 12:49 01/31/21 08:42 Acetaminophen 325 Mg Tablet PO 650 mg Q6H PRN Administration Pain, Mild (Pain Scale 1-3) Al Hydroxide/Mg Hydroxide 15 ml 01/26/21 12:55 01/30/21 22:37 Magnesium Hydrox/Alum Hydrox 30 Ml Oral.Susp PO 15 ml Q4H PRN Administration upset stomach Apixaban 5 mg 01/25/21 12:55 01/25/21 14:44 Apixaban 5 Mg Tablet PO Not Given BID BREE Artificial Tears 1 drop 01/30/21 14:26 01/30/21 22:38 Artificial Tears 15 Ml Drops EYE-RIGHT 1 drop Q4H PRN Administration Itching Atorvastatin Calcium 20 mg 01/30/21 09:00 01/30/21 09:48 Atorvastatin Calcium 20 Mg Tablet PO 20 mg DAILY BREE Administration Heparin Sodium (Porcine) 50 0 units 01/30/21 15:00 01/31/21 08:44 units/ Sodium Chloride 5 ml IVFLUSH 50 unit TID BREE Administration Furosemide 40 mg 01/30/21 09:00 01/31/21 08:42 Furosemide 40 Mg Tablet PO 40 mg DAILY BREE Administration Protocol Meropenem 1 gm/ Sodium 100 mls @ 100 mls/hr 01/25/21 15:00 01/31/21 07:28 Chloride IV Infused Q8H BREE Infusion Omeprazole 20 mg 01/31/21 06:30 01/31/21 06:25 Omeprazole 20 Mg Capsule.Dr PO 20 mg DAILY@0630 BREE Administration Ondansetron HCl 4 mg 01/25/21 12:49 Ondansetron Hcl 4 Mg/2 Ml Vial IVPUSH Q8H PRN Nausea and Vomiting Risperidone 0.25 mg 01/29/21 21:00 01/30/21 22:15 Risperidone 0.25 Mg Tablet PO 0.25 mg BEDTIME BREE Administration Sodium Chloride 3 ml 01/25/21 16:00 01/30/21 22:15 0.9 % Sodium Chloride Flush 3 Ml Syringe IVFLUSH 3 ml QSHIFT BREE Administration Tamsulosin HCl 0.4 mg 01/29/21 17:00 01/30/21 16:46 Tamsulosin Hcl 0.4 Mg Capsule PO 0.4 mg DAILY@1700 BREE Administration Vancomycin HCl 500 mg 01/31/21 09:00 01/31/21 08:42 Vancomycin Hcl 500 Mg/10 Ml Vial IV 500 mg Q24H BREE Administration Home Medications Medication Instructions Recorded Confirmed Last Taken Type albuterol sulfate 90 mcg/actuation 2 puff PO Q4H PRN 03/28/20 01/25/21 Unknown History aerosol inhaler ascorbic acid (vitamin C) 500 mg 500 mg PO BID 03/28/20 01/25/21 Unknown History tablet (Vitamin C) cholecalciferol (vitamin D3) 25 25 mcg PO DAILY 03/28/20 01/25/21 Unknown History mcg (1,000 unit) tablet ferrous sulfate 325 mg (65 mg 325 mg PO BID 03/28/20 01/25/21 Unknown History iron) tablet melatonin 5 mg tablet 5 mg PO BEDTIME 03/28/20 01/25/21 Unknown History metformin 500 mg tablet 500 mg PO DAILY@1700 03/28/20 01/25/21 Unknown History potassium chloride 20 mEq 20 meq PO BEDTIME 03/28/20 01/25/21 Unknown History tablet,extended release(part/cryst) risperidone 0.25 mg tablet 0.25 mg PO BEDTIME 03/28/20 01/25/21 Unknown History tamsulosin 0.4 mg capsule 0.4 mg PO DAILY@1700 03/28/20 01/25/21 Unknown History amlodipine 10 mg tablet 1 tab PO DAILY 12/25/20 01/25/21 Unknown History chlorhexidine gluconate 4 % 1 appl TOPICAL DAILY 12/25/20 01/25/21 Unknown History topical liquid (Hibiclens) vancomycin 500 mg intravenous 500 mg IV DAILY 01/20/21 01/25/21 Unknown History solution acetaminophen 325 mg tablet (Mapap 650 mg PO Q6H PRN 01/25/21 01/25/21 Unknown History (acetaminophen)) ammonium lactate 12 % lotion 1 appl TOPICAL BID 01/25/21 01/25/21 Unknown History oxycodone 5 mg tablet 5 mg PO Q4H PRN 01/25/21 01/25/21 Unknown History Physical Exam Vital Signs and Narrative: Vital Signs: Last Vital Signs Temp 97 F 01/31/21 07:18 Pulse 74 01/31/21 07:18 Resp 18 01/31/21 07:18 BP 148/65 H 01/31/21 07:18 Pulse Ox 94 01/31/21 07:18 Oxygen Flow Rate 4 01/25/21 01:17 Body Mass Index 27.3 Const: General: cooperative, no acute distress and alert Cardio: Peripheral pulses: posterior tibial pulses not present (Left) and dorsalis pedis pulses not present (Left) Extrem: Other: Status post right below-knee amputation. Left foot: Open wound lateral aspect 1st metatarsal head, metatarsal head and distal shaft are exposed in wound. Peripheral soft tissues are clean and granulating. Pressure ulcer left heel: Generally clean with pale granulating wound bed. Results Labs CBC and Chem 7: 01/29/21 06:11 01/30/21 08:58 Labs: Laboratory Results - last 24 hr 01/30/21 01/30/21 01/30/21 08:58 10:44 12:18 Anion Gap 13 Estim Creat Clear Calc 66.7 Estimated GFR > 60 POC Glucose 127 H Random Glucose 148 H Calcium 8.5 D Lactate Dehydrogenase 188 Vancomycin Trough 20.5 H 01/30/21 01/30/21 01/31/21 15:40 20:08 07:02 Anion Gap Estim Creat Clear Calc Estimated GFR POC Glucose 114 117 H 102 Random Glucose Calcium Lactate Dehydrogenase Vancomycin Trough 01/31/21 07:54 Anion Gap Estim Creat Clear Calc Estimated GFR POC Glucose Random Glucose Calcium Lactate Dehydrogenase Vancomycin Trough 17.0 Imaging Radiologist's Impressions: MRI left foot 12/28/2020 demonstrated osteomyelitis left metatarsal head. Assessment and Plan (1) PAD (peripheral artery disease): Status: Acute (2) Pressure ulcer of left heel, stage 3: Status: Acute (3) Non-pressure chronic ulcer of other part of left foot with necrosis of bone: Status: Acute 85-year-old male with known severe peripheral vascular disease of the left lower extremity pressure ulcer of left heel, diabetic ulcer left 1st metatarsal head with osteomyelitis and progression to a exposure and necrosis left 1st metatarsal head. He has significant comorbid conditions and is not felt to be a surgical candidate at this time. [facility] and can follow-up there on discharge. Continue foam dressings with addition of silver alginate to wound beds.
[2021-01-31] MEDS: 0.9 % Sodium Chloride Flush 3 ML SYRINGE IVFLUSH ×2 (08:51→14:46)
[2021-01-31] MEDS: Atorvastatin Calcium 20 MG TABLET PO (08:51)
[2021-01-31 09:03] VITALS: O2SAT 96
[2021-01-31 09:22] LABS: ABG Base Excess 6.8 mmol/L; ABG HCO3 30 mmol/L (22-26); ABG pCO2 40 mmHg (32-45); ABG pCO2 TC 38 mmHg (32-45); ABG pH 7.49 (7.35-7.45); ABG pO2 73 mmHg (83-108); ABG pO2 TC 69 (83-108)
[2021-01-31 11:08] LABS: Glucose, Whole Blood 141 mg/dL (60-115)
[2021-01-31 11:39] VITALS: BP 140/66; PULSE 73; RESP 18; TEMP 36.6; O2SAT 94
[2021-01-31 12:14] LABS: COVID-19 Test Negative (Negative); IDNOW Serial# 9DD0AD1C
--- NOTE | 2021-01-31 13:06 | MHC.CM.PN ---
Patient has been medically cleared for dc to STR/SNF today. Patient will return to [facility] today at 5PM, via [facility]. CM spoke with Daughter/HCP/Abena @ [phone] and reviewed IMM with her (Abena is aware of and in agreement with the dc plan.IMM also addressed with Patient and Son at bedside and original was given to them and a copy has been placed on the chart.
[2021-01-31 15:41] LABS: Glucose, Whole Blood 125 mg/dL (60-115)
[2021-01-31 16:30] LABS: ABG Refer to POC result
== END 2021-01-31 18:15 | disposition skilled nursing facility (03) | DRG 291 ==
LOC: HO.ED 04:43 → HO.EDOVER 12:59 → HO.IMC 14:34
PROVIDERS: Hospitalist; Nurse Practitioner Acute Care; Physician Assistant Medical; Admitting Provider Family Medicine; Emergency Provider Emergency Medicine Emergency Medical Services; PCP Nurse Practitioner Family; Visit Provider Family Medicine
DX: I50.33 Acute on chronic diastolic (congestive) heart failure (principal); L89.623 Pressure ulcer of left heel, stage 3; J96.22 Acute and chronic respiratory failure with hypercapnia; J96.21 Acute and chronic respiratory failure with hypoxia; G92 Toxic encephalopathy; T83.83XA Hemorrhage due to genitourinary prosthetic devices, implants and grafts, initial encounter; I48.19 Other persistent atrial fibrillation; E87.3 Alkalosis; L97.526 Non-pressure chronic ulcer of other part of left foot with bone involvement without evidence of necrosis; M86.672 Other chronic osteomyelitis, left ankle and foot; E11.69 Type 2 diabetes mellitus with other specified complication; R31.0 Gross hematuria; R19.5 Other fecal abnormalities; G47.30 Sleep apnea, unspecified; E11.51 Type 2 diabetes mellitus with diabetic peripheral angiopathy without gangrene; E78.5 Hyperlipidemia, unspecified; E11.621 Type 2 diabetes mellitus with foot ulcer; Z89.511 Acquired absence of right leg below knee; Z20.822 Contact with and (suspected) exposure to COVID-19; Z79.01 Long term (current) use of anticoagulants; Z79.84 Long term (current) use of oral hypoglycemic drugs; Z79.899 Other long term (current) drug therapy
CPT/HCPCS: 0241U; 32555; 36410; 36415; 36600; 70450; 71045; 71250; 74176; 80048; 80076; 80202; 81001; 82272; 82803; 82945; 82947; 83605; 83615; 83880; 84157; 84484; 85014; 85018; 85025; 85027; 85610; 85730; 86850; 86900; 86901; 87040; 87071; 87073; 87086; 87088; 87101; 87102; 87116; 87205; 87635; 89051; 93005; 94660; 96374; 96375; 97162; 99285; 99291; J1642; J1940; J2185; J2270; J3370

== ENCOUNTER → 2021-02-21 14:31 | Outpatient (BNVA) | payer MEDICARE, SELFPAY | PROVIDERS: PCP Nurse Practitioner Family; Visit Provider Surgery Vascular Surgery | DX: I73.9 Peripheral vascular disease, unspecified (principal) | CPT/HCPCS: 99212 ==

== ENCOUNTER → 2021-05-21 08:46 | Outpatient (BNVA) | payer MEDICARE, SELFPAY | PROVIDERS: PCP Nurse Practitioner Family; Visit Provider Surgery Vascular Surgery | DX: I73.9 Peripheral vascular disease, unspecified (principal) | CPT/HCPCS: 99212 ==

== ENCOUNTER 2021-06-06 13:53 | Outpatient (REF) | payer MEDICARE, SELFPAY ==
--- NOTE | ~2021-06-06 | US_ITS ---
EXAMINATION: LEFT LOWER EXTREMITY DUPLEX CLINICAL INFORMATION: Peripheral vascular disease. TECHNIQUE: Real-time ultrasound and Doppler techniques (integrating B-mode 2-D vascular images, Doppler spectral analysis and color flow Doppler imaging) were utilized to interrogate the left lower extremity. COMPARISON: None FINDINGS: LEFT LEG: Common femoral artery: 117 cm/s, Triphasic Profunda femoris artery: 157 cm/s, Triphasic Superficial femoral artery (proximal): 23.2 cm/s, monophasic Superficial femoral artery (mid): 21.4 cm/s, monophasic Superficial femoral artery (distal): 58.9 cm/s, monophasic Popliteal artery: 27.5 cm/s, monophasic Posterior tibial artery: 51.5 cm/s, monophasic US/US arterial duplex LE LT IMPRESSION: The left common femoral artery velocity is normal with a multiphasic waveform; however, the proximal superficial femoral artery velocity is decreased with monophasic waveforms seen throughout the remainder of the left lower extremity arteries. Findings suggest a hemodynamically significant stenosis at the level of the distal WARHEAD MAINTENANCE SPECIALIST/very proximal SFA.
== END 2021-06-06 13:54 | disposition home or self-care (01) ==
LOC: HO.US 13:53
PROVIDERS: Visit Provider Surgery Vascular Surgery
DX: I73.9 Peripheral vascular disease, unspecified (principal)
CPT/HCPCS: 93926

== ENCOUNTER → 2021-06-13 13:17 | Outpatient (BNVA) | payer MEDICARE, SELFPAY | PROVIDERS: Visit Provider Surgery Vascular Surgery | DX: I73.9 Peripheral vascular disease, unspecified (principal) | CPT/HCPCS: 99212 ==

== ENCOUNTER → 2021-07-03 | Day surgery (SDC) | payer MEDICARE, SELFPAY ==
[2021-07-03] VITALS (7 sets, daily range): BP systolic 133–147; BP diastolic 52–70; PULSE 57–82; RESP 14–18; TEMP 36.3–36.6; O2SAT 97–98; BMI 25.1
[2021-07-03 08:12] LABS: MANUAL DIFF FLAG NO
[2021-07-03 08:20] LABS: Basophils Percent Auto 0.4 % (0-2); Eosinophils Absolute Auto 0.3 X10*3/uL (0.0-0.4); Eosinophils Percent Auto 6.9 % (0-4); Hematocrit 31.8 % (42.0-52.0); Hemoglobin 9.9 g/dl (14.0-18.0); Imm Gran Abs Auto 0.01 X10*3/uL (0.00-0.03); Imm Gran Pct Auto 0.2 % (0.0-0.4); Lymphocytes Absolute Auto 1.4 X10*3/uL (1.2-4.9); Mean Corpuscular HGB Conc 31.1 g/dl (31.0-36.0); Mean Corpuscular Hemoglobin 24.6 pg (27.0-33.0); Mean Corpuscular Volume 78.9 fL (80.0-98.0); Monocytes Absolute Auto 0.6 X10*3/uL (0.1-1.2); Monocytes Percent Auto 13.2 % (2-11); Neutrophils Absolute Auto 2.4 x10*3/uL (2.0-8.3); Neutrophils Percent Auto 50.3 % (45-73); Platelet Count 184 X10*3/uL (160-400); Red Blood Count 4.03 X10*6/uL (4.60-5.80); White Blood Count 4.8 X10*3/uL (4.8-10.8)
--- NOTE | 2021-07-03 08:23 | PC.NURSE ---
ulcer noted X3 left foot dressing d/i left doot buttock reddenewith smal open area
--- NOTE | 2021-07-03 08:28 | PC.NURSE ---
pt came by ambulance from [facility]
[2021-07-03 08:29] LABS: Blood Urea Nitrogen 30 mg/dL (9-16); Creatinine Clr Calc Pharmacy 43.6; Estimated Glomerular Filt Rate 55
[2021-07-03 09:17] LABS: Glucose, Whole Blood 90 mg/dL (60-115)
--- NOTE | 2021-07-03 11:45 | P.OP_ITS ---
Operative Note Operative Note Date of Service: 07/03/21 Narrative: Angiogram report from [facility] Preoperative diagnosis: Atherosclerosis of left lower extremity with nonhealing ulcer Postoperative diagnosis: Same Procedure: 1. Ultrasound-guided right common femoral access 2. Aortogram with left lower extremity runoff 3. Left popliteal plasty with DCB 4. Left SFA atherectomy and stent placement Surgeon:Siva Kirkpatrick M.D., FACS, RPVI Wooden Frame Builder:None Anesthesia: Local with moderate conscious sedation. Total intraservice moderate sedation time was 79 minutes. I monitored the patient's level of consciousness and physiologic status continuously throughout the procedure. Specimens:none Drains:none Estimated blood loss: Less than 10 ml Implant: 6 x 200 E V3 stent Indications: 85-year-old gentleman with a prior history of right-sided amputation has a nonhealing left foot ulceration. He now presents for endovascular intervention. He had preprocedural ultrasound imaging which demonstrated disease throughout the SFA. The healthcare proxy has signed the informed consent after reviewing risks, complications, benefits, and alternatives previously discussed with the patient. The patient was given the opportunity to ask any additional questions or voice any concerns. All questions were answered to the patient's satisfaction. Procedure in detail: Patient was brought to the angiography suite prior to which a time-out was called for patient identification and site verification. Bilateral groins were prepped and draped in the standard surgical fashion. Under ultrasound guidance rightcommon femoral was punctured with micro puncture needle and wire. Subsequently a precision 5 Togolese sheath was then placed. Bentson wire was advanced to the level of the aorta. 5 Togolese Flush catheter was brought up and parked at the level of the renal arteries. Aortogram was then undertaken. Catheter was brought down to the level of the iliac bifurcation. Iliacs were subsequently imaged. Catheter was then brought in up and over to the left side SFA. Runoff study was then undertaken. It was then noted to have disease throughout the entire length of SFA and popliteal. We advanced a 035 glidewire Advantage. We subsequently administered 5000 units of systemic heparin. After 5 minutes of circulation time up and over 6 Togolese sheath was then placed. We then turned our attention to the popliteal. There was a high-grade stenosis. This was 1st plasty with a 5 x 40 regular balloon. Subsequently a 6 x 40 Medtronic Impact balloon. This was brought into position in under 3 minutes and insufflated for a total of 3 minutes in duration. We then turned our attention to the mid SFA. There was multiple stenotic lesions throughout that area. We brought in a 6 Togolese spider wire. Over this a Hawk 1 atherectomy device was used. Multiple unidirectional passes of this was undertaken. We had a reasonable result. We subsequently plasty this area out with a 6 x 150 balloon. There is still residual stenosis. At this time we placed a 6 x 200 stent. This was plasty and with a 6 x 150 balloon to obtain good wall apposition. Once this was accomplished multiple orthogonal views were undertaken. No other significant disease was noted. Catheter wire sheath was brought back to the ipsilateral side. StarClose closure device was used. At the end the case sponge instrument counts were correct. Patient tolerated the procedure well. Returned to recovery with stable vitals. Interpretation of films: 1. Ultrasound demonstrates appropriate femoral puncture. Image of which was saved. 2. Aortogram demonstrates appropriate caliber aorta. Minimal disease. Appropriate take-off of the renals - right renal had high-grade stenosis 3. Iliac images demonstrate mild disease 4. Left Leg Common femoral artery: Minimal disease Profundus Femoris: No significant disease Superficial femoral artery: Multiple high-grade stenosis throughout the length of the SFA Popliteal artery (p1,p2,p3): Stenosis at the P1 segment Anterior tibial artery: Occlude Peroneal artery: Dominant runoff Posterior tibial artery: Occluded Dorsalis pedis/plantar arch: Partial fill via peroneal Conclusion: 1. Successful atherectomy and stent of left SFA also successful plasty of left popliteal. 2. Anticoagulation status: Resume Eliquis This note is constructed using voice recognition software. While every effort has been made to ensure accuracy, deposit refund clerk errors may have been included. Thank you for allowing me to participate in the care of your patient. Yours sincerely, Siva Kirkpatrick MD, FACS, R.P.V.I.
[2021-07-03] MEDS: iohexoL 300 MG/ML 50 ML INFUS..BTL IV (12:18)
[2021-07-03] MEDS: iohexoL 300 MG/ML 100 ML INFUS..BTL IV (12:18)
== END | disposition home or self-care (01) ==
PROVIDERS: Visit Provider Surgery Vascular Surgery
DX: E11.51 Type 2 diabetes mellitus with diabetic peripheral angiopathy without gangrene (principal); L97.529 Non-pressure chronic ulcer of other part of left foot with unspecified severity; I70.245 Atherosclerosis of native arteries of left leg with ulceration of other part of foot; E11.69 Type 2 diabetes mellitus with other specified complication; M86.9 Osteomyelitis, unspecified; Z79.84 Long term (current) use of oral hypoglycemic drugs; I48.19 Other persistent atrial fibrillation; Z79.01 Long term (current) use of anticoagulants; J96.22 Acute and chronic respiratory failure with hypercapnia; I27.20 Pulmonary hypertension, unspecified; I50.33 Acute on chronic diastolic (congestive) heart failure; E78.5 Hyperlipidemia, unspecified; G47.33 Obstructive sleep apnea (adult) (pediatric); J44.9 Chronic obstructive pulmonary disease, unspecified; Z89.511 Acquired absence of right leg below knee; Z88.1 Allergy status to other antibiotic agents
CPT/HCPCS: 36415; 37227; 76937; 82565; 82947; 84520; 85025; 99152; 99153; C1714; C1725; C1760; C1769; C1876; C1884; C1887; J2250; J3010; Q9967

== ENCOUNTER → 2021-07-18 12:51 | Outpatient (BNVA) | payer MEDICARE, SELFPAY | PROVIDERS: Visit Provider Surgery Vascular Surgery | DX: I73.9 Peripheral vascular disease, unspecified (principal) | CPT/HCPCS: 99212 ==

== ENCOUNTER → 2021-10-14 10:12 | Outpatient (BNVA) | payer MEDICARE, SELFPAY | PROVIDERS: PCP Registered Nurse Community Health; Referring Provider Registered Nurse Community Health; Visit Provider Internal Medicine | DX: I48.19 Other persistent atrial fibrillation (principal); I50.32 Chronic diastolic (congestive) heart failure | CPT/HCPCS: 93005; 99212 ==

== ENCOUNTER 2021-11-20 10:12 | Outpatient (REF) | payer MEDICARE, SELFPAY ==
--- NOTE | ~2021-11-20 | US_ITS ---
EXAMINATION: COLOR-FLOW DUPLEX IMAGING OF THE UNILATERAL LEFT LOWER EXTREMITY ARTERIAL SYSTEM. VELOCITY MEASUREMENTS THROUGHOUT THE FEMORAL ARTERIES WITH ANKLE-BRACHIAL PERIPHERAL ARTERIAL TESTING. Interventional Radiologist: Eusebio Grover M.D., F.S.I.R., F.A.C.R. COMPARISON: Comparison is made to a previous study dated 06/06/2021. This suggests a hemodynamically significant stenosis at the level of the distal common femoral artery and proximal superficial femoral artery, respectively. CLINICAL INFORMATION: This is an 86-year-old male with left leg peripheral vascular disease. LEFT FEMORAL RUNOFF VELOCITIES: The left common femoral artery measures 155 cm/s and biphasic. The left profunda femoral artery is 177 cm/s and is biphasic. Left proximal superficial femoral artery measures 284 cm/s and biphasic. Mid superficial femoral artery is 108 cm/s and biphasic. Distal left superficial femoral artery measures 149 cm/s and is biphasic. Left popliteal velocity measures 61 cm/s and is biphasic. The posterior tibial artery velocity measures 60 cm/s and was monophasic. An arrhythmia was demonstrated during the course of the duplex portion of the examination. The ankle-brachial index is 1.16. US/US arterial duplex LE LT IMPRESSION: 1. There is an elevated velocity with velocity shift in the proximal superficial femoral artery suggesting a hemodynamically significant stenosis. However, the ankle-brachial index is within normal limits suggesting collateral compensation. Previously, a stenosis was seen in this area but the velocities were much lower.
== END 2021-11-20 10:13 | disposition home or self-care (01) ==
LOC: HO.US 10:12
PROVIDERS: Visit Provider Surgery Vascular Surgery
DX: I73.9 Peripheral vascular disease, unspecified (principal)
CPT/HCPCS: 93926

== ENCOUNTER → 2021-11-26 09:30 | Outpatient (BNVA) | payer MEDICARE, SELFPAY | PROVIDERS: PCP Registered Nurse Community Health; Visit Provider Surgery Vascular Surgery | DX: I73.9 Peripheral vascular disease, unspecified (principal); Z95.820 Peripheral vascular angioplasty status with implants and grafts; Z89.511 Acquired absence of right leg below knee | CPT/HCPCS: 99212 ==

== ENCOUNTER 2022-06-24 09:50 | Outpatient (REF) | payer MEDICARE, SELFPAY ==
--- NOTE | ~2022-06-24 | CT_ITS ---
EXAMINATION: CT CHEST WITHOUT CONTRAST CLINICAL INFORMATION: Pulmonary nodule monitoring. COMPARISON: None. TECHNIQUE: Multidetector volumetric CT imaging of the chest was done. Axial MIP volume rendering provided. Sagittal and coronal reformatted images were obtained. This CT examination was performed using dose optimization techniques as appropriate, variously including the following: *Automated exposure control *Adjustment of mA and/or kV according to patient size (this includes techniques or standardized protocols for targeted exams where dose is matched to indication/reason for exam; i.e. extremities or head) *Use of iterative reconstruction technique DLP: 300 mGy-cm. FINDINGS: WAREHOUSE PICKER: Hyperinflated lungs. LUNGS: There is centrilobular emphysematous changes of both lungs with diffuse bronchiectasis and peribronchiolar thickening, ill-defined parenchymal opacities and linear stranding in both upper lobes. There is a pleural-based nodule left lower lobe superior segment image 291/7, a 2 mm and a 1 mm calcification in right lower lobe superior segment, a 2 mm noncalcified nodule right minor fissure axial image 320/7, a 2 mm subpleural nodule right lower lobe and a tumor nodule left lower lobe axial image 398/7, a 4 mm nodule left lower lobe lateral segment image 499/7 and a 9 mm nodule right lower lobe axial image 43/7. MEDIASTINUM: The thyroid lobes are symmetrical and normal. The central trachea and the bronchi are widely patent. The heart size is normal. The great vessels are normal caliber. There is no pericardial effusion. Central trachea and the bronchi are widely patent. Scattered shotty pretracheal and precarinal lymph nodes seen. CORONARY ARTERY CALCIFICATION: There is mild coronary artery calcification. PLEURA: There is no pleural effusion, pleural thickening or calcification.. AXILLA: No lymphadenopathy. UPPER ABDOMEN: Visualized liver, spleen, pancreas and bilateral adrenal glands are unremarkable. There are multiple radiopaque gallstones. OSSEOUS STRUCTURES: No aggressive lytic or sclerotic process seen. Mild ventral spondylosis lower cervical and mid and lower dorsal spine is noted. CT/CT chest wo IV con IMPRESSION: There is bilateral bronchiectasis, peribronchial thickening and ill-defined patchy opacities in both upper lobes and chronic scarring suggestive of chronic airway disease. There are multiple new pulmonary nodules visualized which are suspicious including the largest nodule right lower lobe measuring 9 mm. Scattered mediastinal lymph nodes. Cholelithiasis without wall thickening. Recommend PET/CT exam to exclude any metastatic disease. Fleischner guidelines were followed.
== END 2022-06-24 09:51 | disposition home or self-care (01) ==
LOC: HO.CT 09:50
PROVIDERS: PCP Registered Nurse; Visit Provider Registered Nurse
DX: R91.8 Other nonspecific abnormal finding of lung field (principal)
CPT/HCPCS: 71250

== ENCOUNTER → 2022-08-05 08:52 | Outpatient (BNVA) | payer OTHER, SELFPAY | PROVIDERS: PCP Registered Nurse; Visit Provider Hospitalist | DX: R91.1 Solitary pulmonary nodule (principal); J44.9 Chronic obstructive pulmonary disease, unspecified; I50.32 Chronic diastolic (congestive) heart failure; G47.00 Insomnia, unspecified | CPT/HCPCS: 99202 ==

== ENCOUNTER 2022-11-01 03:03 | Emergency (ER) | payer OTHER, SELFPAY ==
--- NOTE | ~2022-11-01 | XR_ITS ---
EXAMINATION: XR CHEST CLINICAL INFORMATION: Shortness breath COMPARISON: 01/28/2021 TECHNIQUE: Frontal view of the chest was obtained. FINDINGS: Chronic lung markings. Stable pleural-parenchymal scarring in the right midlung laterally and at the left lung base. Diffuse mild bronchial thickening. No discrete consolidation. No pleural effusion or pneumothorax. Stable cardiac mediastinal silhouette. XR/XR chest 1V IMPRESSION: * No focal consolidation. * Diffuse mild bronchial thickening suggestive of bronchitis. * Chronic lung markings.
--- NOTE | 2022-11-01 03:12 | ECG_ITS ---
Test Reason : DIFFICULTY BREATHING Blood Pressure : / mmHG Vent. Rate : 086 BPM Atrial Rate : 000 BPM P-R Int : 000 ms QRS Dur : 112 ms QT Int : 390 ms P-R-T Axes : 000 065 044 degrees QTc Int : 466 ms Atrial fibrillation Abnormal ECG When compared with ECG of 25-JAN-2021 09:42, Vent. rate has increased BY 32 BPM Referred By: Generic ED Physician Electronically Signed By:RAMIRO RABAGO
[2022-11-01 03:13] VITALS: BP 180/80; PULSE 100; O2SAT 100
[2022-11-01 03:31] VITALS: BP 171/77; PULSE 86; RESP 22; O2SAT 100; BMI 24.3
[2022-11-01 03:32] VITALS: BP 171/77; PULSE 86; RESP 22; O2SAT 100
--- NOTE | 2022-11-01 03:33 | PC.NURSE ---
Pt coming from [facility], diagnosed with pneumonia yesterday, reporting increased difficulty breathing. EMS found pt at 88% on room air. Placed pt on NRB at 15 LPM, pt increased to 100%. Pt presented A&Ox4, GCS 15, with warm, dry skin. Pt is korean speaking only. EMS placed an IV into the left wrist. EKG was obtained, labs ordered, pt placed on the gambling monitor.
[2022-11-01] MEDS: Furosemide 100 MG/10 ML VIAL 80 MG IVPUSH (03:43)
[2022-11-01 03:48] LABS: MANUAL DIFF FLAG NO
[2022-11-01 03:50] LABS: Basophils Percent Auto 0.4 % (0-2); Eosinophils Absolute Auto 0.1 X10*3/uL (0.0-0.4); Eosinophils Percent Auto 1.5 % (0-4); Hematocrit 28.1 % (42.0-52.0); Hemoglobin 8.7 g/dl (14.0-18.0); Imm Gran Abs Auto 0.03 X10*3/uL (0.00-0.03); Imm Gran Pct Auto 0.4 % (0.0-0.4); Lymphocytes Absolute Auto 0.8 X10*3/uL (1.2-4.9); Lymphocytes Percent Auto 10.1 % (20-40); Mean Corpuscular Hemoglobin 25.9 pg (27.0-33.0); Mean Corpuscular Volume 83.6 fL (80.0-98.0); Mean Platelet Volume 9.8 fL (9.4-12.4); Monocytes Absolute Auto 0.7 X10*3/uL (0.1-1.2); Monocytes Percent Auto 9.5 % (2-11); Neutrophils Absolute Auto 5.9 x10*3/uL (2.0-8.3); Neutrophils Percent Auto 78.1 % (45-73); Platelet Count 224 X10*3/uL (160-400); Red Blood Count 3.36 X10*6/uL (4.60-5.80); Red Cell Distribution Width 18.6 % (11.0-16.0); White Blood Count 7.6 X10*3/uL (4.8-10.8)
--- NOTE | 2022-11-01 03:51 | ED_ITS ---
HPI - SOB/Dyspnea General Chief Complaint: Dyspnea Stated Complaint: SOB Time Seen by Provider: 11/01/22 03:17 Source: patient and manager pharmaceutical Mode of arrival: EMS History of Present Illness HPI Narrative: 87-year-old male brought in by EMS from [facility], diagnosed with pneumonia yesterday, reports increased difficulty breathing and patient states that the oxygen was not available at the facility. In addition, nursing staff received a message stating that the facility did not have the necessary antibiotics. Patient has a history of COPD, CHF and was found to have oxygenation of 88%. Related Data Home Medications Medication Instructions Recorded Confirmed albuterol sulfate 90 mcg/actuation 2 puff PO Q4H PRN Shortness Of 03/28/2010/14 aerosol inhaler Breath ascorbic acid (vitamin C) 500 mg 500 mg PO BID 03/28/20 10/14/21 tablet (Vitamin C) cholecalciferol (vitamin D3) 25 25 mcg PO DAILY 03/28/20 10/14/21 mcg (1,000 unit) tablet ferrous sulfate 325 mg (65 mg 325 mg PO BID 03/28/20 10/14/21 iron) tablet melatonin 5 mg tablet 5 mg PO BEDTIME 03/28/20 10/14/21 metformin 500 mg tablet 500 mg PO DAILY@1700 03/28/20 10/14/21 potassium chloride 20 mEq 20 meq PO BEDTIME 03/28/20 10/14/21 tablet,extended release(part/cryst) risperidone 0.25 mg tablet 0.25 mg PO BEDTIME 03/28/20 10/14/21 tamsulosin 0.4 mg capsule 0.4 mg PO DAILY@1700 03/28/20 10/14/21 chlorhexidine gluconate 4 % 1 appl topical DAILY 12/25/20 10/14/21 topical liquid (Hibiclens) vancomycin 500 mg intravenous 500 mg IV DAILY 01/20/21 10/14/21 solution acetaminophen 325 mg tablet (Mapap 650 mg PO Q6H PRN MILD PAIN OR TEMP 01/25/21 10/14/21 (acetaminophen)) ammonium lactate 12 % lotion 1 appl topical BID 01/25/21 10/14/21 oxycodone 5 mg tablet 5 mg PO Q4H PRN Pain (Scale Score 01/25/21 10/14/21 4-6) fluoxetine 10 mg tablet 10 mg PO DAILY 02/21/21 10/14/21 gabapentin 600 mg tablet 600 mg PO DAILY 02/21/21 10/14/21 amlodipine 10 mg tablet 10 mg PO DAILY 10/14/21 10/14/21 furosemide 40 mg tablet 40 mg PO BID 10/14/21 10/14/21 gabapentin 300 mg capsule 300 mg PO DAILY 08/05/22 ipratropium 0.5 mg-albuterol 3 mg ml inhalation 08/05/22 (2.5 mg base)/3 mL nebulization soln nebulizers 08/05/22 sertraline 50 mg tablet 50 mg PO DAILY 08/05/22 Previous Rx's Medication Instructions Recorded apixaban 5 mg tablet (Eliquis) 5 mg PO BID #180 tabs 09/21/20 atorvastatin 20 mg tablet 20 mg PO QAM #90 tabs 09/21/20 ertapenem 1 gram solution for 1 g IV DAILY 37 days #37 ea 01/02/21 injection sodium chloride 0.9 % (flush) 5 ml IVFLUSH TID #500 mL 01/02/21 (Normal Saline Flush 0.9 % injection syringe) omeprazole 20 mg capsule,delayed 20 mg PO DAILY@0630 #30 caps 01/31/21 release Allergies Allergy/AdvReac Type Severity Reaction Status Date / Time bee pollen [BEE STINGS] Allergy Severe ANAPHYLAXIS Verified 08/05/22 09:06 doxycycline [DOXYCYCLINE] Allergy Unknown ? ALLERGY Verified 08/05/22 09:06 [employer] Allergy Mild ITCHING Uncoded 08/05/22 09:06 Review of Systems Review of Systems: Pertinent positives and negatives as stated in HPI [facility] Past Medical History Source: nursing notes reviewed Medical History Acute and chronic respiratory failure with hypercapnia Acute on chronic diastolic (congestive) heart failure Afib Alcoholic cardiomyopathy BPH (benign prostatic hyperplasia) CHF (congestive heart failure) CHF exacerbation Chronic heart failure with preserved ejection fraction (HFpEF) COPD (chronic obstructive pulmonary disease) COPD (chronic obstructive pulmonary disease) COVID-19 Diabetes 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 Father No problems noted. Son No problems noted. Son No problems noted. Son No problems noted. Son No problems noted. Daughter No problems noted. Daughter No problems noted. Daughter No problems noted. Social History Social History Household Members: Other Housing: Detention Do you presently have visiting nurse or other home services: No Alcohol intake: never Patient Tobacco Use Status: Never used Tobacco Smoked in Last 30 Days: No Use of substances other than those prescribed or required for medical reasons: No Advance Directives: Yes Advance Directives on File: Yes Advance Directives Date on File: 03/28/20 service: No Current occupational status: retired Physical Exam Vital Signs: Vital Signs: Last Vital Signs Pulse 86 11/01/22 03:32 Resp 22 H 11/01/22 03:32 BP 171/77 H 11/01/22 03:32 Pulse Ox 100 11/01/22 03:32 O2 Del Method Non-Rebreather [facility] 11/01/22 03:32 O2 Flow Rate 15 11/01/22 03:32 Oxygen Flow Rate 15 11/01/22 03:31 BMI result Body Mass Index 24.3 VITAL SIGNS: Reviewed. GENERAL: Chronically, in no moderate distress. HEAD: Normocephalic/atraumatic EYES: PERRLA, EOMI EARS: Ext canals without abnormality NOSE: Nares patent bilateral OROPHARYNX: no oral lesions noted, posterior pharynx clear NECK: Supple, no adenopathy LUNGS: Bibasilar rales with decreased breath sounds on the right; SpO2<100> on non-rebreather, patient then placed on 2 L nasal cannula CARDIOVASCULAR: Irregular rate and rhythm without noted murmurs, no JVD or lower extremity edema. ABDOMEN: Soft, non-tender, non-distended with bowel sounds. MUSCULOSKELETAL: No tenderness, deformities, or effusions noted on gross inspection. EXTREMITIES: No cyanosis, clubbing or edema; BKA ON RIGHT LOWER EXTREMITY. SKIN: Inspection of the skin reveals no rashes NEUROLOGIC: Alert and oriented x 4. Strength and sensation to light touch were grossly intact x 4. Medications Administered Discontinued Medications Generic Name Dose Route Start Last Admin Trade Name Andreina PRN Reason Stop Dose Admin Furosemide 80 mg 11/01/22 03:37 11/01/22 03:43 Furosemide 100 Mg/10 Ml Vial IVPUSH 11/01/22 03:38 80 mg ONCE ONE Administration Protocol Piperacillin Sod/Tazobactam 50 mls @ 100 mls/hr 11/01/22 04:54 11/01/22 05:12 Sod 3.375 gm/ Sodium Chloride IV 11/01/22 05: 100 mls/hr ONCE ONE Administration Medical Decision Making Medical Decision Making MDM Narrative: 87-year-old male with multiple medical comorbidities to include atrial fibrillation, CHF, COPD and reports stating that he was diagnosed with pneumonia yesterday and now presents here with shortness of breath. Patient received diuretics, lab work and imaging were ordered as well as EKG. I reviewed all investigations lab work appears to be chronically stable, patient is oxygenating well on baseline nasal cannula at 2 L, patient diuresed, the rehab facility informs us that the antibiotic is available and patient is otherwise hemodynamically stable and can be discharged back to the rehab facility. Differential Diagnosis Please see the discussion above Lab Data Please see the discussion above 11/01/22 03:43 11/01/22 03:42 Labs: Lab Results 11/01/22 11/01/22 11/01/22 Range/Units 03:42 03:42 03:42 WBC (4.8-10.8) X10*3/uL RBC (4.60-5.80) X10*6/uL Hgb (14.0-18.0) g/dl Hct (42.0-52.0) % MCV (80.0-98.0) fL MCH (27.0-33.0) pg MCHC (31.0-36.0) g/dl RDW (11.0-16.0) % Plt Count (160-400) X10*3/uL MPV (9.4-12.4) fL Immature Gran % (Auto) (0.0-0.4) % Neut % (Auto) (45-73) % Lymph % (Auto) (20-40) % [place] % (Auto) (2-11) % Eos % (Auto) (0-4) % Baso % (Auto) (0-2) % Lymph # (Auto) (1.2-4.9) X10*3/uL [place] # (Auto) (0.1-1.2) X10*3/uL Eos # (Auto) (0.0-0.4) X10*3/uL Baso # (Auto) (0.0-0.2) X10*3/uL Abs Immat Gran (auto) (0.00-0.03) X10*3/uL Absolute Neuts (auto) (2.0-8.3) x10*3/uL Absolute Nucleated RBC (0.0-0.012) X10*3/uL Nucleated RBC % (auto) (0.0-0.2) /100WBC PT (10.0-13.1) SEC INR (0.9-1.1) VBG pH (7.32-7.43) VBG pCO2 mmHg VBG pO2 mmHg VBG HCO3 (22-26) mmol/L VBG O2 Saturation % VBG Base Excess mmol/L Sodium 131 L (135-145) mmol/L Potassium 4.1 (3.3-5.1) mmol/L Chloride 99 (96-108) mmol/L Carbon Dioxide 26 (22-29) mmol/L Anion Gap 10 L (12-20) BUN 13 (9-16) mg/dL Creatinine 1.04 (0.5-1.4) mg/dL Estim Creat Clear Calc 59.2 Estimated GFR > 60 Random Glucose 144 H (60-115) mg/dL Lactic Acid (0.5-2.0) mmol/L Calcium 8.9 (8.4-10.2) mg/dL Troponin I High Sens 19.4 (<3.5-35.0) ng/L B-Natriuretic Peptide 129 H (<100) pg/mL 11/01/22 11/01/22 11/01/22 Range/Units 03:43 03:45 04:20 WBC 7.6 (4.8-10.8) X10*3/uL RBC 3.36 L (4.60-5.80) X10*6/uL Hgb 8.7 L (14.0-18.0) g/dl Hct 28.1 L (42.0-52.0) % MCV 83.6 (80.0-98.0) fL MCH 25.9 L (27.0-33.0) pg MCHC 31.0 (31.0-36.0) g/dl RDW 18.6 H (11.0-16.0) % Plt Count 224 (160-400) X10*3/uL MPV 9.8 (9.4-12.4) fL Immature Gran % (Auto) 0.4 (0.0-0.4) % Neut % (Auto) 78.1 H (45-73) % Lymph % (Auto) 10.1 L (20-40) % [place] % (Auto) 9.5 (2-11) % Eos % (Auto) 1.5 (0-4) % Baso % (Auto) 0.4 (0-2) % Lymph # (Auto) 0.8 L (1.2-4.9) X10*3/uL [place] # (Auto) 0.7 (0.1-1.2) X10*3/uL Eos # (Auto) 0.1 (0.0-0.4) X10*3/uL Baso # (Auto) 0.0 (0.0-0.2) X10*3/uL Abs Immat Gran (auto) 0.03 (0.00-0.03) X10*3/uL Absolute Neuts (auto) 5.9 (2.0-8.3) x10*3/uL Absolute Nucleated RBC 0.000 (0.0-0.012) X10*3/uL Nucleated RBC % (auto) 0.0 (0.0-0.2) /100WBC PT (10.0-13.1) SEC INR (0.9-1.1) VBG pH 7.31 L (7.32-7.43) VBG pCO2 54 mmHg VBG pO2 90 mmHg VBG HCO3 27 H (22-26) mmol/L VBG O2 Saturation 98.0 % VBG Base Excess 0.9 mmol/L Sodium (135-145) mmol/L Potassium (3.3-5.1) mmol/L Chloride (96-108) mmol/L Carbon Dioxide (22-29) mmol/L Anion Gap (12-20) BUN (9-16) mg/dL Creatinine (0.5-1.4) mg/dL Estim Creat Clear Calc Estimated GFR Random Glucose (60-115) mg/dL Lactic Acid 0.6 (0.5-2.0) mmol/L Calcium (8.4-10.2) mg/dL Troponin I High Sens (<3.5-35.0) ng/L B-Natriuretic Peptide (<100) pg/mL 11/01/22 Range/Units 04:20 WBC (4.8-10.8) X10*3/uL RBC (4.60-5.80) X10*6/uL Hgb (14.0-18.0) g/dl Hct (42.0-52.0) % MCV (80.0-98.0) fL MCH (27.0-33.0) pg MCHC (31.0-36.0) g/dl RDW (11.0-16.0) % Plt Count (160-400) X10*3/uL MPV (9.4-12.4) fL Immature Gran % (Auto) (0.0-0.4) % Neut % (Auto) (45-73) % Lymph % (Auto) (20-40) % [place] % (Auto) (2-11) % Eos % (Auto) (0-4) % Baso % (Auto) (0-2) % Lymph # (Auto) (1.2-4.9) X10*3/uL [place] # (Auto) (0.1-1.2) X10*3/uL Eos # (Auto) (0.0-0.4) X10*3/uL Baso # (Auto) (0.0-0.2) X10*3/uL Abs Immat Gran (auto) (0.00-0.03) X10*3/uL Absolute Neuts (auto) (2.0-8.3) x10*3/uL Absolute Nucleated RBC (0.0-0.012) X10*3/uL Nucleated RBC % (auto) (0.0-0.2) /100WBC PT 10.7 (10.0-13.1) SEC INR 0.9 (0.9-1.1) VBG pH (7.32-7.43) VBG pCO2 mmHg VBG pO2 mmHg VBG HCO3 (22-26) mmol/L VBG O2 Saturation % VBG Base Excess mmol/L Sodium (135-145) mmol/L Potassium (3.3-5.1) mmol/L Chloride (96-108) mmol/L Carbon Dioxide (22-29) mmol/L Anion Gap (12-20) BUN (9-16) mg/dL Creatinine (0.5-1.4) mg/dL Estim Creat Clear Calc Estimated GFR Random Glucose (60-115) mg/dL Lactic Acid (0.5-2.0) mmol/L Calcium (8.4-10.2) mg/dL Troponin I High Sens (<3.5-35.0) ng/L B-Natriuretic Peptide (<100) pg/mL Independent Interpretation I performed an independent interpretation of an: EKG Interpretation: Atrial fibrillation, HR-86, no STEMI, QTC is within normal limits Radiology Impression Radiologist Impression: My interpretation is in agreement with radiology's impression. External Record Review External record reviewed: Prior outpatient labs Discharge Plan Discharge Clinical Impression: CHF (congestive heart failure), Dyspnea Patient Disposition: Xfer Inpatient Rehab Fac Instructions: Heart Failure (ED), Dyspnea (ED) Additional Instructions: 1. Reanudar todos los medicamentos caseros. 2. Complete peacock ciclo prescrito de antibi?ticos. 3. Zeina un seguimiento con peacock proveedor de atenci?n primaria el arnol por la ma?josias. Regrese a la juan de emergencias si los s?ntomas empeoran. 1. Resume all home medications. 2. Complete your prescribed course of antibiotics. 3. Follow-up with your primary care provider on Thursday morning. Return to the ER for any worsening symptoms. Prescriptions: No Action apixaban [Eliquis] 5 mg tablet 5 mg PO BID Qty: 180 3RF atorvastatin 20 mg tablet 20 mg PO QAM Qty: 90 3RF metformin 500 mg tablet 500 mg PO DAILY@1700 risperidone 0.25 mg tablet 0.25 mg PO BEDTIME potassium chloride 20 mEq tablet,ER particles/crystals 20 meq PO BEDTIME ascorbic acid (vitamin C) [Vitamin C] 500 mg tablet 500 mg PO BID tamsulosin 0.4 mg capsule 0.4 mg PO DAILY@1700 ferrous sulfate 325 mg (65 mg iron) tablet 325 mg PO BID albuterol sulfate 90 mcg/actuation HFA aerosol inhaler 2 puff PO Q4H PRN (Reason: Shortness Of Breath) cholecalciferol (vitamin D3) 25 mcg (1,000 unit) tablet 25 mcg PO DAILY melatonin 5 mg tablet 5 mg PO BEDTIME chlorhexidine gluconate [Hibiclens] 4 % liquid 1 appl topical DAILY sodium chloride 0.9 % (flush) [Normal Saline Flush] Syringe 5 ml IVFLUSH TID Qty: 500 0RF ertapenem 1 gram recon soln 1 g IV DAILY 37 Days Qty: 37 0RF amlodipine 10 mg tablet 10 mg PO DAILY vancomycin 500 mg Recon Soln 500 mg IV DAILY Patient Comments: until 01/20 acetaminophen [Mapap (acetaminophen)] 325 mg Tablet 650 mg PO Q6H PRN (Reason: MILD PAIN OR TEMP) ammonium lactate 12 % Lotion 1 appl TOPICAL BID oxycodone 5 mg Tablet 5 mg PO Q4H PRN (Reason: Pain (Scale Score 4-6)) omeprazole 20 mg Capsule,Delayed Release(Dr/Ec) 20 mg PO DAILY@0630 Qty: 30 0RF fluoxetine 10 mg tablet 10 mg PO DAILY gabapentin 600 mg tablet 600 mg PO DAILY furosemide 40 mg tablet 40 mg PO BID sertraline 50 mg tablet 50 mg PO DAILY gabapentin 300 mg capsule 300 mg PO DAILY ipratropium-albuterol 0.5 mg-3 mg(2.5 mg base)/3 mL solution for nebulization inhalation (DME) nebulizers Misc See Rx Instructions .ROUTE Rx Instructions: As directed Print Language: [place]
[2022-11-01 03:53] LABS: Venous Blood Gas Refer to POC result
[2022-11-01 03:54] LABS: VBG Base Excess 0.9 mmol/L; VBG HCO3 27 mmol/L (22-26); VBG pCO2 54 mmHg; VBG pH 7.31 (7.32-7.43); VBG pO2 90 mmHg
[2022-11-01 04:05] LABS: Anion Gap 10 (12-20); Blood Urea Nitrogen 13 mg/dL (9-16); Calcium 8.9 mg/dL (8.4-10.2); Carbon Dioxide 26 mmol/L (22-29); Chloride 99 mmol/L (96-108); Creatinine Clr Calc Pharmacy 59.2; Estimated Glomerular Filt Rate > 60; Glucose Random 144 mg/dL (60-115); Potassium 4.1 mmol/L (3.3-5.1); Sodium 131 mmol/L (135-145)
[2022-11-01 04:11] LABS: B Type Natriuretic Peptide 129 pg/mL (<100); Troponin-I High Sensitivity 19.4 ng/L (<3.5-35.0)
[2022-11-01 04:31] LABS: INTERNATIONAL NORM RATIO 0.9 (0.9-1.1); Prothrombin Time 10.7 SEC (10.0-13.1)
[2022-11-01 04:36] LABS: Lactic Acid 0.6 mmol/L (0.5-2.0)
[2022-11-01] MEDS: Piperacillin Sodium/Tazobactam 3.375 GM in 0.9 % Sodium Chloride 50 ML IV (05:12)
--- NOTE | 2022-11-01 05:21 | PC.NURSE ---
Report given to Alissa SALAS at [facility].
[2022-11-01 05:37] VITALS: BP 172/82; PULSE 86; RESP 16; O2SAT 94
== END 2022-11-01 05:55 ==
PROVIDERS: Emergency Provider Student in an Organized Health Care Education/Training Program; PCP Registered Nurse
DX: I11.0 Hypertensive heart disease with heart failure (principal); I50.9 Heart failure, unspecified; R06.00 Dyspnea, unspecified; R06.02 Shortness of breath; E11.9 Type 2 diabetes mellitus without complications; E78.5 Hyperlipidemia, unspecified; I48.19 Other persistent atrial fibrillation; Z89.511 Acquired absence of right leg below knee; Z79.84 Long term (current) use of oral hypoglycemic drugs; Z79.899 Other long term (current) drug therapy; Z79.01 Long term (current) use of anticoagulants; Z79.02 Long term (current) use of antithrombotics/antiplatelets
CPT/HCPCS: 36415; 71045; 80048; 82803; 83605; 83880; 84484; 85025; 85610; 87040; 93005; 96365; 96375; 99285; J1940; J2543

== ENCOUNTER 2022-11-24 10:27 | Outpatient (REF) | payer OTHER, SELFPAY ==
--- NOTE | ~2022-11-24 | US_ITS ---
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 History of left SFA stent. Right below-knee amputation. TECHNIQUE: Ankle pulse volume recordings, ankle pressure measurements and ankle brachial indices were obtained of the left extremity arterial system in addition to duplex Doppler techniques with wave form analysis and measurement of velocities in the common femoral, profunda femoral, superficial femoral, popliteal and tibial arteries. The study was performed only at rest. COMPARISON: Previous exam November 2021 FINDINGS: a) AT REST: LEFT LE. The left ankle-brachial index is: 1.2. This is not accurate due to elevated peak blood pressures greater than 200 2. Left ankle pressure: Abnormal 3. Left ankle PVR waveform: Abnormal 4. Left direct duplex Doppler findings: There is atherosclerotic disease with vessel wall calcification. The stent in the superficial femoral artery appears patent. * Common femoral artery: 128 cm/s, Diastolic flow reversal: No biphasic * Superficial femoral artery (proximal, mid, distal): 242, 129 and 164 cm/s, Diastolic flow reversal: No biphasic * Peak systolic velocities in the stent measure 147, 129 and 161 cm/s. There is biphasic flow in the stent. * Popliteal artery: 48 cm/s, Diastolic flow reversal: No biphasic * Posterior tibial artery: 62 cm/s, Diastolic flow reversal: No biphasic JULIO Reference: * >0.97-1.25 = normal - no significant arterial disease * 0.75-0.96 = mild peripheral arterial disease * 0.5-0.74 = moderate peripheral arterial disease * <0.50 = severe peripheral arterial disease US/US arterial duplex LE IMPRESSION: Atherosclerotic disease. Moderate SFA stenosis. The left superficial femoral artery stent is patent. Nondiagnostic JULIO.
--- NOTE | ~2022-11-24 | US_ITS ---
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 History of left SFA stent. Right below-knee amputation. TECHNIQUE: Ankle pulse volume recordings, ankle pressure measurements and ankle brachial indices were obtained of the left extremity arterial system in addition to duplex Doppler techniques with wave form analysis and measurement of velocities in the common femoral, profunda femoral, superficial femoral, popliteal and tibial arteries. The study was performed only at rest. COMPARISON: Previous exam November 2021 FINDINGS: a) AT REST: LEFT LE. The left ankle-brachial index is: 1.2. This is not accurate due to elevated peak blood pressures greater than 200 2. Left ankle pressure: Abnormal 3. Left ankle PVR waveform: Abnormal 4. Left direct duplex Doppler findings: There is atherosclerotic disease with vessel wall calcification. The stent in the superficial femoral artery appears patent. * Common femoral artery: 128 cm/s, Diastolic flow reversal: No biphasic * Superficial femoral artery (proximal, mid, distal): 242, 129 and 164 cm/s, Diastolic flow reversal: No biphasic * Peak systolic velocities in the stent measure 147, 129 and 161 cm/s. There is biphasic flow in the stent. * Popliteal artery: 48 cm/s, Diastolic flow reversal: No biphasic * Posterior tibial artery: 62 cm/s, Diastolic flow reversal: No biphasic JULIO Reference: * >0.97-1.25 = normal - no significant arterial disease * 0.75-0.96 = mild peripheral arterial disease * 0.5-0.74 = moderate peripheral arterial disease * <0.50 = severe peripheral arterial disease US/US JULIO complete IMPRESSION: Atherosclerotic disease. Moderate SFA stenosis. The left superficial femoral artery stent is patent. Nondiagnostic JULIO.
== END 2022-11-24 10:28 | disposition home or self-care (01) ==
LOC: HO.US 10:27
PROVIDERS: PCP Registered Nurse; Visit Provider Surgery Vascular Surgery
DX: I70.212 Atherosclerosis of native arteries of extremities with intermittent claudication, left leg (principal)
CPT/HCPCS: 93923; 93926

== ENCOUNTER → 2022-12-02 10:40 | Outpatient (BNVA) | payer OTHER, SELFPAY | PROVIDERS: PCP Registered Nurse; Visit Provider Surgery Vascular Surgery | DX: I73.9 Peripheral vascular disease, unspecified (principal); Z95.820 Peripheral vascular angioplasty status with implants and grafts | CPT/HCPCS: 99212 ==

== ENCOUNTER 2022-12-16 13:49 | Outpatient (AMB) | payer MEDICARE, SELFPAY ==
--- NOTE | 2022-12-16 13:54 | MHC.OFFVIS ---
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 ALLERGY PER PIE CRUST MIXER SARDINES Allergy (Mild, Uncoded 12/16/22 13:59) ITCHING Medication List - Last Reconciled 12/16/22 by Messi Whitt MD acetaminophen (Mapap (acetaminophen)) 650 mg PO Q6H PRN albuterol sulfate 90 mcg/actuation 2 puffs PO Q4H PRN amlodipine 10 mg PO DAILY ammonium lactate 12% 1 appl topical BID apixaban (Eliquis) 5 mg PO BID ascorbic acid (vitamin C) (Vitamin C) 500 mg PO BID atorvastatin 20 mg PO QAM atorvastatin 20 mg PO BEDTIME chlorhexidine gluconate 4% (Hibiclens) 1 appl topical DAILY cholecalciferol (vitamin D3) 25 mcg PO DAILY cholecalciferol (vitamin D3) 125 mcg PO DAILY colchicine 0.6 mg PO DAILY ertapenem 1 g IV DAILY 37 days ferrous sulfate 325 mg PO BID furosemide 40 mg PO BID gabapentin 600 mg PO DAILY gabapentin 300 mg PO DAILY hydralazine 50 mg PO TID ipratropium-albuterol 0.5 mg-3 mg(2.5 mg base)/3 mL mL inhalation melatonin 5 mg PO BEDTIME metformin 500 mg PO DAILY@1700 nebulizers As directed omeprazole 20 mg PO DAILY@0630 oxycodone 5 mg PO Q4H PRN sertraline (Zoloft) 50 mg PO DAILY tamsulosin 0.4 mg PO DAILY@1700 HPI HPI Comments History of Present Illness Details Teofilo returns for follow-up regarding atrial fibrillation. He has been in atrial fibrillation for more than 10 years. He does not have any symptoms like angina or shortness of breath or in fact anything cardiac sounding. He does have chronic anemia. There was a recent hospitalization to [facility]. Reviewed the discharge summary. There was a question of acute on chronic anemia and black tarry stools that led to ER evaluation. Then admitted as GI bleed. It seems that Eliquis was held but recommendation was to resume on discharge. GI saw him but does not look like he underwent any procedures. Overall, treated conservatively and then discharged home. 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 Father No problems noted. Son No problems noted. Son No problems noted. Son No problems noted. Son No problems noted. Daughter No problems noted. Daughter No problems noted. Daughter No problems noted. Social History Household Members: Other Housing: [facility]way Do you presently have visiting nurse or other home services: No Alcohol intake: never Patient Tobacco Use Status: Never used Tobacco Advance Directives Date on File: 03/28/20 service: No Current occupational status: retired Review of Systems Const Denies weakness ENT Denies dizziness Card Denies chest pain, Denies chest pain with activity, Denies syncope, Denies rapid heart rate, Denies pedal edema, Denies edema, Denies leg edema, Denies lightheadedness, Denies palpitations, Denies dyspnea, Denies dyspnea on exertion and Denies orthopnea Resp Denies cough, Denies dyspnea and Denies dyspnea on exertion GI Denies hematochezia and Denies change in stool character Musc Denies abnormal gait, Denies muscle cramps, Denies muscle weakness, Denies numbness, Denies radiating pain into limb and Denies tingling Neuro Denies abnormal gait, Denies dizziness, Denies syncope, Denies numbness, Denies tingling and Denies weakness Endo Denies palpitations Physical Exam Vital Signs: Last Vital Signs Pulse 85 12/16/22 13:55 BP 132/54 L 12/16/22 13:55 Const General: comfortable and no acute distress Orientation/consciousness: patient oriented x3 HEENT Other: Unremarkable Head: Yes normal to inspection Neck Neck: Yes normal visual inspection Chest Chest palpation & inspection: normal inspection of the chest Resp Auscultation: clear to auscultation bilaterally Cardio Palpation: normal PMI Heart sounds: S1 normal heart sound present, S2 normal heart sound present, no gallops, no murmurs and no rubs GI Palpation (GI): Soft to palpation Back/Spine/Pelvis Other: unremarkable Skin General skin exam: no rashes or lesions noted Neuro General: patient oriented x3 Extrem Other: Right below-knee amputation General: Yes normal to inspection Psych Mental Status: mental status grossly normal Assessment & Plan Assessment & Plan (1) Persistent atrial fibrillation: Code(s): I48.19 - Other persistent atrial fibrillation Plan: Last EKG from October shows atrial fibrillation at a rate of 86/Min. Last echocardiogram from [facility] from October 2022 shows LVEF of 60-65%. No wall motion abnormalities. No significant valvular issues. He has a history of pauses and does not take any rate control medications. Has taken atenolol before. With regard to anticoagulation, can resume Eliquis. Noted in the [facility] chart. Hemoglobin to be followed. If continued drops, then need to reassess. Otherwise, last hemoglobin from November 01-8.7 which is about the same as before. We discussed this in great detail today with daughter. Otherwise, we will refer him back to Dr. White who was seen in the hospital in the past. Further workup including EGD/colonoscopy per his discretion. (2) Chronic heart failure with preserved ejection fraction (HFpEF): Code(s): I50.32 - Chronic diastolic (congestive) heart failure Plan: Clinically, there is no evidence of volume overload. Continue diuretics. (3) Essential hypertension: Code(s): I10 - Essential (primary) hypertension Plan: Stable. No med changes. Plan Total time spent including review of [facility] records, counseling, documentation, discussion with daughter, coordination of care-35 minutes. Orders: Referrals Gastroenterology Referral K92.2 - Gastrointestinal hemorrhage, unspecified Coding Level of Care Code Est Pt Level 4 (15954) Diagnoses Persistent atrial fibrillation I48.19 Chronic heart failure with preserved ejection fraction (HFpEF) I50.32 Essential hypertension I10
[2022-12-16 13:55] VITALS: BP 132/54; PULSE 85
== END 2022-12-16 14:47 | disposition home or self-care (01) ==
PROVIDERS: PCP Registered Nurse; Referring Provider Registered Nurse; Visit Provider Internal Medicine
DX: I48.19 Other persistent atrial fibrillation (principal); I50.32 Chronic diastolic (congestive) heart failure; I10 Essential (primary) hypertension
CPT/HCPCS: 99214

== ENCOUNTER → 2022-12-16 13:49 | Outpatient (BNVA) | payer MEDICARE, SELFPAY | PROVIDERS: PCP Registered Nurse; Referring Provider Registered Nurse; Visit Provider Internal Medicine | DX: I48.19 Other persistent atrial fibrillation (principal); I11.0 Hypertensive heart disease with heart failure; I50.32 Chronic diastolic (congestive) heart failure | CPT/HCPCS: 99212 ==

== ENCOUNTER 2022-12-29 01:09 | Inpatient (IN) | payer MEDICARE, SELFPAY ==
[2022-12-29] VITALS (11 sets, daily range): BP systolic 129–168; BP diastolic 52–81; PULSE 83–107; RESP 19–24; TEMP 36.8–38.1; O2SAT 91–98; BMI 27.2; BMI 26.3
--- NOTE | 2022-12-29 | ECG_ITS ---
Test Reason : shortness of breath Blood Pressure : / mmHG Vent. Rate : 090 BPM Atrial Rate : 000 BPM P-R Int : 000 ms QRS Dur : 094 ms QT Int : 312 ms P-R-T Axes : 000 069 -78 degrees QTc Int : 381 ms Atrial fibrillation with premature ventricular or aberrantly conducted complexes Incomplete right bundle branch block ST & T wave abnormality, consider lateral ischemia Abnormal ECG When compared with ECG of 01-NOV-2022 03:15, ST now depressed in Anterolateral leads Nonspecific T wave abnormality now evident in Inferior leads T wave inversion now evident in Lateral leads QT has shortened Referred By: Faustino Seo Electronically Signed By:MARLA BARTH MD
--- NOTE | ~2022-12-29 | CT_ITS ---
EXAMINATION: CT CHEST WITHOUT CONTRAST CLINICAL INFORMATION: Hypoxia COMPARISON: 06/24/2022 TECHNIQUE: Multidetector volumetric CT imaging of the chest was done. Axial MIP volume rendering provided. Sagittal and coronal reformatted images were obtained. This CT examination was performed using dose optimization techniques as appropriate, variously including the following: *Automated exposure control *Adjustment of mA and/or kV according to patient size (this includes techniques or standardized protocols for targeted exams where dose is matched to indication/reason for exam; i.e. extremities or head) *Use of iterative reconstruction technique DLP: 403 mGy-cm FINDINGS: LUNGS: There is bilateral bronchial wall thickening which may be indicative of acute or chronic bronchitis. Curvilinear opacities at the bilateral upper lobes favor scarring. There is limited detailed evaluation of the lung parenchyma in some regions due to respiratory motion artifact. There are mild groundglass opacities within the right upper lobe which appear new from prior, suspicious for mild infectious/inflammatory change. A subpleural 6 mm left upper lobe nodule on image 194/589 is stable. A right lower lobe nodule measuring up to 9 mm on image 340 also appears stable. Mild dependent atelectasis in the lower lobes. A few additional subcentimeter nodules bilaterally appear without significant change. MEDIASTINUM: The visualized thyroid gland is unremarkable. No significant mediastinal lymphadenopathy. There is cardiomegaly without pericardial effusion. Scattered calcification along the aorta. CORONARY ARTERY CALCIFICATION: Present PLEURA: No pneumothorax or pleural effusion. AXILLA: No lymphadenopathy. UPPER ABDOMEN: Cholelithiasis is noted. OSSEOUS STRUCTURES: Degenerative changes are noted in the spine. CT/CT chest wo IV con IMPRESSION: 1. Mild groundglass opacities in the right upper lobe, suspicious for mild infectious/inflammatory change. 2. Bronchial wall thickening may be indicative of acute or chronic bronchitis. 3. Stable appearance of pulmonary nodules since 06/24/2022. 4. Cardiomegaly. 5. Cholelithiasis.
--- NOTE | ~2022-12-29 | XR_ITS ---
EXAMINATION: XR CHEST CLINICAL INFORMATION: Rhonchi COMPARISON: Chest radiograph from 12/29/2022 TECHNIQUE: Frontal view of the chest was obtained. FINDINGS: Coarsened interstitial lung markings. Left basilar atelectasis. No pneumothorax. Trachea is midline. Cardiac mediastinal silhouette is stable. Aorta demonstrates atherosclerotic calcifications. No large pleural effusion. Osseous structures are intact. Soft tissues are unremarkable. XR/XR chest 1V IMPRESSION: 1. Coarsened interstitial lung markings. 2. Left basilar atelectasis.
--- NOTE | ~2022-12-29 | XR_ITS ---
EXAMINATION: XR CHEST CLINICAL INFORMATION: Shortness of breath and hypoxia COMPARISON: 10/12/2022 TECHNIQUE: Frontal view of the chest was obtained. FINDINGS: Lung volumes are symmetric. No focal consolidation is seen. Coarsened appearance of the interstitium is similar to prior. No evidence of pneumothorax, significant pleural effusion, or overt pulmonary edema. Cardiac silhouette remains prominent. Calcification is present at the aortic arch. No acute osseous findings are seen. XR/XR chest 1V IMPRESSION: No new acute findings identified. Coarsened appearance of the interstitium is similar to prior and may reflect chronic lung disease.
--- NOTE | 2022-12-29 01:28 | ED.URI ---
HPI - URI/Sore Throat General Chief Complaint: Upper Respiratory Symptoms Stated Complaint: ? 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 Patient is complaining of generalized body ache, sore throat, runny nose. No other sick contact at the half-way. Patient with history of respiratory failure with hypercarbia, CHF, encephalopathy. Related Data Home Medications Medication Instructions Recorded Confirmed albuterol sulfate 90 mcg/actuation 2 puff PO Q4H PRN Shortness Of 03/28/20 12/16/22 aerosol inhaler Breath ascorbic acid (vitamin C) 500 mg 500 mg PO BID 03/28/20 12/16/22 tablet (Vitamin C) cholecalciferol (vitamin D3) 25 25 mcg PO DAILY 03/28/20 12/16/22 mcg (1,000 unit) tablet ferrous sulfate 325 mg (65 mg 325 mg PO BID 03/28/20 12/16/22 iron) tablet melatonin 5 mg tablet 5 mg PO BEDTIME 03/28/20 12/16/22 metformin 500 mg tablet 500 mg PO DAILY@1700 03/28/20 12/16/22 tamsulosin 0.4 mg capsule 0.4 mg PO DAILY@1700 03/28/20 12/16/22 chlorhexidine gluconate 4 % 1 appl topical DAILY 12/25/20 12/16/22 topical liquid (Hibiclens) acetaminophen 325 mg tablet (Mapap 650 mg PO Q6H PRN MILD PAIN OR TEMP 01/25/21 12/16/22 (acetaminophen)) ammonium lactate 12 % lotion 1 appl topical BID 01/25/21 12/16/22 oxycodone 5 mg tablet 5 mg PO Q4H PRN Pain (Scale Score 01/25/21 12/16/22 4-6) gabapentin 600 mg tablet 600 mg PO DAILY 02/21/21 12/16/22 amlodipine 10 mg tablet 10 mg PO DAILY 10/14/21 12/16/22 furosemide 40 mg tablet 40 mg PO BID 10/14/21 12/16/22 gabapentin 300 mg capsule 300 mg PO DAILY 08/05/22 12/16/22 ipratropium 0.5 mg-albuterol 3 mg ml inhalation 08/05/22 12/16/22 (2.5 mg base)/3 mL nebulization soln nebulizers 08/05/22 12/16/22 colchicine 0.6 mg tablet 0.6 mg PO DAILY 12/02/22 12/16/22 hydralazine 50 mg tablet 50 mg PO TID 12/02/22 12/16/22 atorvastatin 20 mg tablet 20 mg PO BEDTIME 12/16/22 12/16/22 cholecalciferol (vitamin D3) 125 125 mcg PO DAILY 12/16/22 12/16/22 mcg (5,000 unit) capsule sertraline 50 mg tablet (Zoloft) 50 mg PO DAILY 12/16/22 12/16/22 Previous Rx's Medication Instructions Recorded apixaban 5 mg tablet (Eliquis) 5 mg PO BID #180 tabs 09/21/20 atorvastatin 20 mg tablet 20 mg PO QAM #90 tabs 09/21/20 ertapenem 1 gram solution for 1 g IV DAILY 37 days #37 ea 01/02/21 injection omeprazole 20 mg capsule,delayed 20 mg PO DAILY@0630 #30 caps 01/31/21 release Allergies Allergy/AdvReac Type Severity Reaction Status Date / Time bee pollen [BEE STINGS] Allergy Severe ANAPHYLAXIS Verified 12/16/22 13:59 doxycycline [DOXYCYCLINE] Allergy Unknown ? 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 SARDINES Allergy Mild ITCHING Uncoded 12/16/22 13:59 Review of Systems Review of Systems: Yes all other systems are reviewed and are negative PMFSH Past Medical History Medical History Acute and chronic respiratory failure with hypercapnia Acute on chronic diastolic (congestive) heart failure Afib Alcoholic cardiomyopathy BPH (benign prostatic hyperplasia) CHF (congestive heart failure) CHF exacerbation Chronic heart failure with preserved ejection fraction (HFpEF) COPD (chronic obstructive pulmonary disease) COPD (chronic obstructive pulmonary disease) COVID-19 Diabetes 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 Father No problems noted. Son No problems noted. Son No problems noted. Son No problems noted. Son No problems noted. Daughter No problems noted. Daughter No problems noted. Daughter No problems noted. Social History Social History Household Members: Other Housing: Alf Do you presently have visiting nurse or other home services: No Alcohol intake: never Patient Tobacco Use Status: Never used Tobacco Smoked in Last 30 Days: No Use of substances other than those prescribed or required for medical reasons: No Advance Directives: Yes Advance Directives on File: Yes Advance Directives Date on File: 03/28/20 service: No Current occupational status: retired Physical Exam Vital Signs: Vital Signs: Last Vital Signs Temp 100.6 F H 12/29/22 01:13 Pulse 96 12/29/22 01:13 Resp 19 12/29/22 01:13 BP 159/60 H 12/29/22 01:13 Pulse Ox 98 12/29/22 01:13 O2 Del Method Nasal Cannula 12/29/22 03:25 Oxygen Flow Rate 4 12/29/22 03:25 BMI result Body Mass Index 27.2 Vital signs have been reviewed as appeared to be correct. Blood pressure normal. Heart rate normal. Respiration rate normal. Temperature normal. Oxygen saturation normal. Appearance: Alert. Oriented X3. No acute distress. Head: Normal external exam. Normocephalic. Atraumatic. No Ashby signs noted. No raccoon eyes noted Eyes: PERRLA. EOMI. Conjunctiva and sclera normal. Eyelids normal. ENT: TM's Normal. Pharynx normal. Uvula midline. Moist mucous membranes. No trismus noted. No drooling noted. No muffled voice noted. Neck: Normal inspection. Neck supple. FROM. No adenopathy. Thyroid Normal. No meningeal signs. No neck mass noted. CVS: Normal heart rate and rhythm. Heart sound normal. No murmurs noted. Pulses normal throughout. Respiratory: No respiratory distress. Painless inspiration. Breath sounds normal. No wheezes/rales/rhonchi noted. Chest nontender. No accessory muscle usage noted or decreased air movement noted. Abdomen: Soft and nontender. Bowel sounds normal in all 4 quadrants. No distention noted. No organomegaly noted. No visible injury noted. Back: No CVA tenderness. Full range of motion noted. Skin: Skin warm and dry. Normal skin color. Normal skin turgor. No rashes/lesions/lacerations noted. Extremities: No lower extremity edema. Extremities exhibit normal range of motion. Extremities nontender. Neuro: Oriented X 3. Cranial nerve exam: II-XII are grossly intact No motor deficit. No sensory deficit. Reflexes normal. Course Reevaluation(s) Reevaluation #1: COPD exacerbation, chest x-ray showing no acute infiltrate, patient meets criteria for sirs will cover for Levaquin. Time: 03:44 Medications Administered Discontinued Medications Generic Name Dose Route Start Last Admin Trade Name Freq PRN Reason Stop Dose Admin Albuterol Sulfate 2.5 mg 12/29/22 03:36 12/29/22 03:46 Albuterol Sulfate (0.083%) 2.5 Mg/3 Ml Vial.Neb INHALE 12/29/22 03:37 2.5 mg ONCE ONE Administration Albuterol/Ipratropium 3 ml 12/29/22 03:36 12/29/22 03:46 Albuterol/Iprat 2.5/0.5mg 3 Ml Ampul.Neb INHALE 12/29/22 03:37 3 ml ONCE ONE Administration Sodium Chloride 1,000 mls @ 999 mls/hr 12/29/22 01:25 12/29/22 01:33 Ns IV 12/29/22 02:25 999 mls/hr .Q1H1M ONE Administration Medical Decision Making Differential Diagnosis Differential Diagnoses: The differential diagnosis associated with the presentation includes (Pneumonia, pneumothorax, COPD exacerbation, pleural effusion, electrolyte abnormality, severe anemia.) Admission/Observation Consideration of admission/observation: Escalation of care including admission/observation considered Consult Healthcare Provider Management of the patient was discussed with: Hospitalist (Dr. Long) Lab Data MDM Lab Attestation statement: I reviewed the patient's lab results. 12/29/22 01:12/29/22 01:31 Labs: Lab Results 12/29/22 12/29/22 12/29/22 Range/Units : 01:31 01:31 WBC 7.3 (4.8-10.8) X10*3/uL RBC 3.67 L (4.60-5.80) X10*6/uL Hgb 9.2 L (14.0-18.0) g/dl Hct 29.3 L (42.0-52.0) % MCV 79.8 L (80.0-98.0) fL MCH 25.1 L (27.0-33.0) pg MCHC 31.4 (31.0-36.0) g/dl RDW 20.0 H (11.0-16.0) % Plt Count 175 (160-400) X10*3/uL MPV 10.2 (9.4-12.4) fL Immature Gran % (Auto) 0.3 (0.0-0.4) % Neut % (Auto) 71.4 (45-73) % Lymph % (Auto) 13.8 L (20-40) % [place] % (Auto) 10.2 (2-11) % Eos % (Auto) 4.2 H (0-4) % Baso % (Auto) 0.1 (0-2) % Lymph # (Auto) 1.0 L (1.2-4.9) X10*3/uL [place] # (Auto) 0.8 (0.1-1.2) X10*3/uL Eos # (Auto) 0.3 (0.0-0.4) X10*3/uL Baso # (Auto) 0.0 (0.0-0.2) X10*3/uL Abs Immat Gran (auto) 0.02 (0.00-0.03) X10*3/uL Absolute Neuts (auto) 5.2 (2.0-8.3) x10*3/uL Absolute Nucleated RBC 0.000 (0.0-0.012) X10*3/uL Nucleated RBC % (auto) 0.0 (0.0-0.2) /100WBC Sodium 139 (135-145) mmol/L Potassium 3.6 (3.3-5.1) mmol/L Chloride 105 (96-108) mmol/L Carbon Dioxide 24 (22-29) mmol/L Anion Gap 14 (12-20) BUN 20 H (9-16) mg/dL Creatinine 0.98 (0.5-1.4) mg/dL Estim Creat Clear Calc 52.3 Estimated GFR > 60 Random Glucose 120 H (60-115) mg/dL Lactic Acid (0.5-2.0) mmol/L Calcium 9.6 D (8.4-10.2) mg/dL Total Bilirubin 1.2 H (0.0-1.0) mg/dL Direct Bilirubin 0.5 (0.0-0.5) mg/dL AST 23 (5-37) U/L ALT 18 (0-40) U/L Alkaline Phosphatase 68 (39-117) U/L Troponin I High Sens 19.0 (<3.5-35.0) ng/L B-Natriuretic Peptide (<100) pg/mL Total Protein 7.4 (6.5-8.0) g/dL Albumin 4.0 (3.5-5.0) g/dL Lipase 5 L (8-78) U/L Urine Color Urine Appearance Urine pH (5.0-9.0) Ur Specific [place] (1.005-1.025) Urine Protein (Neg-Trace) mg/dL Urine Glucose (UA) (Negative) mg/dL Urine Ketones (Negative) mg/dL Urine Blood (Negative) Urine Nitrite (Negative) Ur Leukocyte Esterase (Negative) Urine RBC (0-2) /HPF Urine WBC (0-5) /HPF Ur Squamous Epith Cells (0-2) /HPF Urine Bacteria (None Seen) Hyaline Casts (0-2) /LPF Influenza Type A (PCR) (Negative) Influenza Type B (PCR) (Negative) RSV RNA Qual (PCR) (Negative) SARS-CoV-2 RNA (RT-PCR) (Negative) 12/29/22 12/29/22 12/29/22 Range/Units 01:31 01:31 01:55 WBC (4.8-10.8) X10*3/uL RBC (4.60-5.80) X10*6/uL Hgb (14.0-18.0) g/dl Hct (42.0-52.0) % MCV (80.0-98.0) fL MCH (27.0-33.0) pg MCHC (31.0-36.0) g/dl RDW (11.0-16.0) % Plt Count (160-400) X10*3/uL MPV (9.4-12.4) fL Immature Gran % (Auto) (0.0-0.4) % Neut % (Auto) (45-73) % Lymph % (Auto) (20-40) % [place] % (Auto) (2-11) % Eos % (Auto) (0-4) % Baso % (Auto) (0-2) % Lymph # (Auto) (1.2-4.9) X10*3/uL [place] # (Auto) (0.1-1.2) X10*3/uL Eos # (Auto) (0.0-0.4) X10*3/uL Baso # (Auto) (0.0-0.2) X10*3/uL Abs Immat Gran (auto) (0.00-0.03) X10*3/uL Absolute Neuts (auto) (2.0-8.3) x10*3/uL Absolute Nucleated RBC (0.0-0.012) X10*3/uL Nucleated RBC % (auto) (0.0-0.2) /100WBC Sodium (135-145) mmol/L Potassium (3.3-5.1) mmol/L Chloride (96-108) mmol/L Carbon Dioxide (22-29) mmol/L Anion Gap (12-20) BUN (9-16) mg/dL Creatinine (0.5-1.4) mg/dL Estim Creat Clear Calc Estimated GFR Random Glucose (60-115) mg/dL Lactic Acid 1.1 (0.5-2.0) mmol/L Calcium (8.4-10.2) mg/dL Total Bilirubin (0.0-1.0) mg/dL Direct Bilirubin (0.0-0.5) mg/dL AST (5-37) U/L ALT (0-40) U/L Alkaline Phosphatase (39-117) U/L Troponin I High Sens (<3.5-35.0) ng/L B-Natriuretic Peptide 154 H (<100) pg/mL Total Protein (6.5-8.0) g/dL Albumin (3.5-5.0) g/dL Lipase (8-78) U/L Urine Color Yellow Urine Appearance Clear Urine pH 5.5 (5.0-9.0) Ur Specific [place] 1.010 (1.005-1.025) Urine Protein 100 (2+) H (Neg-Trace) mg/dL Urine Glucose (UA) Negative (Negative) mg/dL Urine Ketones Negative (Negative) mg/dL Urine Blood Negative (Negative) Urine Nitrite Negative (Negative) Ur Leukocyte Esterase Negative (Negative) Urine RBC 0-2 (0-2) /HPF Urine WBC 0-5 (0-5) /HPF Ur Squamous Epith Cells 0-2 (0-2) /HPF Urine Bacteria None Seen (None Seen) Hyaline Casts 0-2 (0-2) /LPF Influenza Type A (PCR) (Negative) Influenza Type B (PCR) (Negative) RSV RNA Qual (PCR) (Negative) SARS-CoV-2 RNA (RT-PCR) (Negative) 12/29/22 Range/Units 02:17 WBC (4.8-10.8) X10*3/uL RBC (4.60-5.80) X10*6/uL Hgb (14.0-18.0) g/dl Hct (42.0-52.0) % MCV (80.0-98.0) fL MCH (27.0-33.0) pg MCHC (31.0-36.0) g/dl RDW (11.0-16.0) % Plt Count (160-400) X10*3/uL MPV (9.4-12.4) fL Immature Gran % (Auto) (0.0-0.4) % Neut % (Auto) (45-73) % Lymph % (Auto) (20-40) % [place] % (Auto) (2-11) % Eos % (Auto) (0-4) % Baso % (Auto) (0-2) % Lymph # (Auto) (1.2-4.9) X10*3/uL [place] # (Auto) (0.1-1.2) X10*3/uL Eos # (Auto) (0.0-0.4) X10*3/uL Baso # (Auto) (0.0-0.2) X10*3/uL Abs Immat Gran (auto) (0.00-0.03) X10*3/uL Absolute Neuts (auto) (2.0-8.3) x10*3/uL Absolute Nucleated RBC (0.0-0.012) X10*3/uL Nucleated RBC % (auto) (0.0-0.2) /100WBC Sodium (135-145) mmol/L Potassium (3.3-5.1) mmol/L Chloride (96-108) mmol/L Carbon Dioxide (22-29) mmol/L Anion Gap (12-20) BUN (9-16) mg/dL Creatinine (0.5-1.4) mg/dL Estim Creat Clear Calc Estimated GFR Random Glucose (60-115) mg/dL Lactic Acid (0.5-2.0) mmol/L Calcium (8.4-10.2) mg/dL Total Bilirubin (0.0-1.0) mg/dL Direct Bilirubin (0.0-0.5) mg/dL AST (5-37) U/L ALT (0-40) U/L Alkaline Phosphatase (39-117) U/L Troponin I High Sens (<3.5-35.0) ng/L B-Natriuretic Peptide (<100) pg/mL Total Protein (6.5-8.0) g/dL Albumin (3.5-5.0) g/dL Lipase (8-78) U/L Urine Color Urine Appearance Urine pH (5.0-9.0) Ur Specific [place] (1.005-1.025) Urine Protein (Neg-Trace) mg/dL Urine Glucose (UA) (Negative) mg/dL Urine Ketones (Negative) mg/dL Urine Blood (Negative) Urine Nitrite (Negative) Ur Leukocyte Esterase (Negative) Urine RBC (0-2) /HPF Urine WBC (0-5) /HPF Ur Squamous Epith Cells (0-2) /HPF Urine Bacteria (None Seen) Hyaline Casts (0-2) /LPF Influenza Type A (PCR) NEGATIVE (Negative) Influenza Type B (PCR) NEGATIVE (Negative) RSV RNA Qual (PCR) NEGATIVE (Negative) SARS-CoV-2 RNA (RT-PCR) NEGATIVE (Negative) Independent Interpretation I performed an independent interpretation of an: Plain X-Ray (No acute pathology.) Radiology Impression Discussion of test interpretation with radiology: I have reviewed the radiologist's reading. Discharge Plan Discharge Clinical Impression: Acute exacerbation of chronic obstructive pulmonary disease Patient Disposition: Admitted As Inpatient
[2022-12-29] MEDS: 0.9 % Sodium Chloride 1,000 ML 999 ML IV (01:33)
[2022-12-29 01:50] LABS: MANUAL DIFF FLAG NO
[2022-12-29 01:51] LABS: Basophils Percent Auto 0.1 % (0-2); Eosinophils Absolute Auto 0.3 X10*3/uL (0.0-0.4); Eosinophils Percent Auto 4.2 % (0-4); Hematocrit 29.3 % (42.0-52.0); Hemoglobin 9.2 g/dl (14.0-18.0); Imm Gran Abs Auto 0.02 X10*3/uL (0.00-0.03); Imm Gran Pct Auto 0.3 % (0.0-0.4); Lymphocytes Percent Auto 13.8 % (20-40); Mean Corpuscular HGB Conc 31.4 g/dl (31.0-36.0); Mean Corpuscular Hemoglobin 25.1 pg (27.0-33.0); Mean Corpuscular Volume 79.8 fL (80.0-98.0); Mean Platelet Volume 10.2 fL (9.4-12.4); Monocytes Absolute Auto 0.8 X10*3/uL (0.1-1.2); Monocytes Percent Auto 10.2 % (2-11); Neutrophils Absolute Auto 5.2 x10*3/uL (2.0-8.3); Neutrophils Percent Auto 71.4 % (45-73); Platelet Count 175 X10*3/uL (160-400); Red Blood Count 3.67 X10*6/uL (4.60-5.80); White Blood Count 7.3 X10*3/uL (4.8-10.8)
[2022-12-29 02:02] LABS: Appearance Urine Clear; Color Urine Yellow; Glucose Urine UA Negative (Negative); Leukocyte Esterase Urine Negative (Negative); Nitrite Urine Negative (Negative); PH 5.5 (5.0-9.0); UMIC TRIGGER UACC YES; Urine Blood Negative (Negative); Urine Ketones Negative (Negative); Urine Protein 100 (2+) mg/dL (Neg-Trace)
[2022-12-29 02:04] LABS: Bacteria Urine None Seen (None Seen); Hyaline Casts Urine 0-2 /LPF (0-2); RBC Urine 0-2 /HPF (0-2); Squamous Epithelial Cell Urine 0-2 /HPF (0-2); WBC Urine 0-5 /HPF (0-5)
[2022-12-29 02:06] LABS: Lactic Acid 1.1 mmol/L (0.5-2.0)
[2022-12-29 02:12] LABS: Alanine Aminotransferase 18 U/L (0-40); Alkaline Phosphatase 68 U/L (39-117); Anion Gap 14 (12-20); Aspartate Amino Transferase 23 U/L (5-37); Bilirubin Direct 0.5 mg/dL (0.0-0.5); Bilirubin Total 1.2 mg/dL (0.0-1.0); Blood Urea Nitrogen 20 mg/dL (9-16); Calcium 9.6 mg/dL (8.4-10.2); Carbon Dioxide 24 mmol/L (22-29); Chloride 105 mmol/L (96-108); Creatinine Clr Calc Pharmacy 52.3; Estimated Glomerular Filt Rate > 60; Glucose Random 120 mg/dL (60-115); Lipase 5 U/L (8-78); Potassium 3.6 mmol/L (3.3-5.1); Sodium 139 mmol/L (135-145); Total Protein 7.4 g/dL (6.5-8.0)
[2022-12-29 02:18] LABS: B Type Natriuretic Peptide 154 pg/mL (<100)
[2022-12-29 02:59] LABS: Influenza A PCR NEGATIVE (Negative); Influenza B PCR NEGATIVE (Negative); Resp Syncy Virus RNA Qual PCR NEGATIVE (Negative); SARS COV2 PCR INHOUSE NEGATIVE (Negative)
[2022-12-29] MEDS: Albuterol Sulfate (0.083%) 2.5 MG/3 ML VIAL.NEB INHALE (03:46)
[2022-12-29] MEDS: Albuterol/Iprat 2.5/0.5MG 3 ML AMPUL.NEB INHALE ×7 (03:46→19:00)
[2022-12-29] MEDS: levoFLOXacin/D5W 750 MG/150 ML PIGGYBACK 100 MG IV (04:13)
--- NOTE | 2022-12-29 05:32 | PC.NURSE ---
Pts daughter, Lupe Camacho, called for an update.
[2022-12-29 05:59] LABS: Venous Blood Gas Refer to POC result
[2022-12-29 06:00] LABS: VBG Base Excess 5.4 mmol/L; VBG HCO3 31 mmol/L (22-26); VBG pCO2 55 mmHg; VBG pH 7.36 (7.32-7.43); VBG pO2 42 mmHg
--- NOTE | 2022-12-29 06:19 | PM.IMHP ---
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 Patient states he has been having dyspnea for the last 2-3 days. It is associated with productive cough and pleuritic chest discomfort. Also complains of associated fever. Denies orthopnea or PND. No wheezing. Patient denies coughing or choking with food. No palpitations, abdominal pain, changes in urinary or bowel habits In the emergency department patient was found to be septic Review of Systems Constitutional: Constitutional: Reports chills, Reports fever(s) and Reports lethargy Cardiovascular: Cardiovascular: Reports dyspnea on exertion Respiratory: Respiratory: Reports cough and Reports dyspnea on exertion Gastrointestinal: Gastrointestinal: Reports no additional gastrointestinal complaints Genitourinary: Genitourinary: Reports no additional male genitourinary complaints [facility] Medical History Acute and chronic respiratory failure with hypercapnia Acute on chronic diastolic (congestive) heart failure Afib Alcoholic cardiomyopathy BPH (benign prostatic hyperplasia) CHF (congestive heart failure) CHF exacerbation Chronic heart failure with preserved ejection fraction (HFpEF) COPD (chronic obstructive pulmonary disease) COPD (chronic obstructive pulmonary disease) COVID-19 Diabetes Diabetic osteomyelitis 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 Foot ulcer Hyperlipidemia Insomnia Non-pressure chronic ulcer of other part of left foot with necrosis of bone BARBARA (obstructive sleep apnea) PAD (peripheral artery disease) PAD (peripheral artery disease) Persistent atrial fibrillation Pleural effusion Pressure ulcer of left heel, stage 3 Prostate cancer Pulmonary hypertension Pulmonary nodule Family History Mother No problems noted. Father No problems noted. Son No problems noted. Son No problems noted. Son No problems noted. Son No problems noted. Daughter No problems noted. Daughter No problems noted. Daughter No problems noted. Surgical History H/O abdominal surgery H/O angioplasty H/O cataract extraction Hx of BKA Social History Household Members: Other Housing: Halfway Do you presently have visiting nurse or other home services: No Alcohol intake: never Patient Tobacco Use Status: Never used Tobacco Smoked in Last 30 Days: No Use of substances other than those prescribed or required for medical reasons: No Advance Directives: Yes Advance Directives on File: Yes Advance Directives Date on File: 03/28/20 service: No Current occupational status: retired Meds Allergies Allergy/AdvReac Type Severity Reaction Status Date / Time bee pollen [BEE STINGS] Allergy Severe ANAPHYLAXIS Verified 12/16/22 13:59 doxycycline [DOXYCYCLINE] Allergy Unknown ? ALLERGY Verified 12/16/22 13:59 PER SERVICE ESTABLISHMENT ATTENDANT [place]ARDIN[place] Allergy Mild ITCHING Uncoded 12/16/22 13:59 Home Medications Medication Instructions Recorded Confirmed Last Taken Type albuterol sulfate 90 mcg/actuation 2 puff PO Q4H PRN Shortness Of 03/28/20 12/16/22 Unknown History aerosol inhaler Breath ascorbic acid (vitamin C) 500 mg 500 mg PO BID 03/28/20 12/16/22 Unknown History tablet (Vitamin C) cholecalciferol (vitamin D3) 25 25 mcg PO DAILY 03/28/20 12/16/22 Unknown History mcg (1,000 unit) tablet ferrous sulfate 325 mg (65 mg 325 mg PO BID 03/28/20 12/16/22 Unknown History iron) tablet melatonin 5 mg tablet 5 mg PO BEDTIME 03/28/20 12/16/22 Unknown History metformin 500 mg tablet 500 mg PO DAILY@1700 03/28/20 12/16/22 Unknown History tamsulosin 0.4 mg capsule 0.4 mg PO DAILY@1700 03/28/20 12/16/22 Unknown History chlorhexidine gluconate 4 % 1 appl topical DAILY 12/25/20 12/16/22 Unknown History topical liquid (Hibiclens) acetaminophen 325 mg tablet (Mapap 650 mg PO Q6H PRN MILD PAIN OR TEMP 01/25/21 12/16/22 Unknown History (acetaminophen)) ammonium lactate 12 % lotion 1 appl topical BID 01/25/21 12/16/22 Unknown History oxycodone 5 mg tablet 5 mg PO Q4H PRN Pain (Scale Score 01/25/21 12/16/22 Unknown History 4-6) gabapentin 600 mg tablet 600 mg PO DAILY 02/21/21 12/16/22 Unknown History amlodipine 10 mg tablet 10 mg PO DAILY 10/14/21 12/16/22 Unknown History furosemide 40 mg tablet 40 mg PO BID 10/14/21 12/16/22 Unknown History gabapentin 300 mg capsule 300 mg PO DAILY 08/05/22 12/16/22 Unknown History ipratropium 0.5 mg-albuterol 3 mg ml inhalation 08/05/22 12/16/22 Unknown History (2.5 mg base)/3 mL nebulization soln nebulizers 08/05/22 12/16/22 Unknown History colchicine 0.6 mg tablet 0.6 mg PO DAILY 12/02/22 12/16/22 Unknown History hydralazine 50 mg tablet 50 mg PO TID 12/02/22 12/16/22 Unknown History atorvastatin 20 mg tablet 20 mg PO BEDTIME 12/16/22 12/16/22 Unknown History cholecalciferol (vitamin D3) 125 125 mcg PO DAILY 12/16/22 12/16/22 Unknown History mcg (5,000 unit) capsule sertraline 50 mg tablet (Zoloft) 50 mg PO DAILY 12/16/22 12/16/22 Unknown History Physical Exam Vital Signs and Narrative: Vital Signs: Last Vital Signs Temp 98.5 F 12/29/22 05:49 Pulse 88 12/29/22 05:49 Resp 24 H 12/29/22 05:49 BP 129/64 12/29/22 05:49 Pulse Ox 94 12/29/22 05:49 O2 Del Method Nasal Cannula 12/29/22 05:49 O2 Flow Rate 4 12/29/22 05:49 Oxygen Flow Rate 4 12/29/22 03:25 BMI result Body Mass Index 27.2 Elderly male lying in bed in mild distress on supplemental oxygen Neck supple, no JVD Regular rate and rhythm, S1-S2 heard Right-sided crackles present Abdomen soft nontender, no guarding, no rigidity Patient is awake, alert and oriented to self, place, time and person ; no focal motor deficit Extremity: Right lower extremity amputation Psych: Normal mood No pedal edema Results Labs 12/29/22 01:31 12/29/22 01:31 Labs: Laboratory Results - last 24 hr 12/29/22 12/29/22 12/29/22 01:31 01:31 01:31 MCV 79.8 L MCH 25.1 L MCHC 31.4 RDW 20.0 H Plt Count 175 MPV 10.2 Immature Gran % (Auto) 0.3 Neut % (Auto) 71.4 Lymph % (Auto) 13.8 L [place] % (Auto) 10.2 Eos % (Auto) 4.2 H Baso % (Auto) 0.1 Lymph # (Auto) 1.0 L [place] # (Auto) 0.8 Eos # (Auto) 0.3 Baso # (Auto) 0.0 Abs Immat Gran (auto) 0.02 Absolute Neuts (auto) 5.2 Absolute Nucleated RBC 0.000 Nucleated RBC % (auto) 0.0 VBG pH VBG pCO2 VBG pO2 VBG HCO3 VBG O2 Saturation VBG Base Excess Anion Gap 14 Estim Creat Clear Calc 52.3 Estimated GFR > 60 Random Glucose 120 H Lactic Acid Calcium 9.6 D Total Bilirubin 1.2 H Direct Bilirubin 0.5 AST 23 ALT 18 Alkaline Phosphatase 68 Troponin I High Sens 19.0 B-Natriuretic Peptide Total Protein 7.4 Albumin 4.0 Lipase 5 L Urine Color Urine Appearance Urine pH Ur Specific [place] Urine Protein Urine Glucose (UA) Urine Ketones Urine Blood Urine Nitrite Ur Leukocyte Esterase Urine RBC Urine WBC Ur Squamous Epith Cells Urine Bacteria Hyaline Casts Influenza Type A (PCR) Influenza Type B (PCR) RSV RNA Qual (PCR) SARS-CoV-2 RNA (RT-PCR) 12/29/22 12/29/22 12/29/22 01:31 01:31 01:55 MCV MCH MCHC RDW Plt Count MPV Immature Gran % (Auto) Neut % (Auto) Lymph % (Auto) [place] % (Auto) Eos % (Auto) Baso % (Auto) Lymph # (Auto) [place] # (Auto) Eos # (Auto) Baso # (Auto) Abs Immat Gran (auto) Absolute Neuts (auto) Absolute Nucleated RBC Nucleated RBC % (auto) VBG pH VBG pCO2 VBG pO2 VBG HCO3 VBG O2 Saturation VBG Base Excess Anion Gap Estim Creat Clear Calc Estimated GFR Random Glucose Lactic Acid 1.1 Calcium Total Bilirubin Direct Bilirubin AST ALT Alkaline Phosphatase Troponin I High Sens B-Natriuretic Peptide 154 H Total Protein Albumin Lipase Urine Color Yellow Urine Appearance Clear Urine pH 5.5 Ur Specific [place] 1.010 Urine Protein 100 (2+) H Urine Glucose (UA) Negative Urine Ketones Negative Urine Blood Negative Urine Nitrite Negative Ur Leukocyte Esterase Negative Urine RBC 0-2 Urine WBC 0-5 Ur Squamous Epith Cells 0-2 Urine Bacteria None Seen Hyaline Casts 0-2 Influenza Type A (PCR) Influenza Type B (PCR) RSV RNA Qual (PCR) SARS-CoV-2 RNA (RT-PCR) 12/29/22 12/29/22 02:17 05:53 MCV MCH MCHC RDW Plt Count MPV Immature Gran % (Auto) Neut % (Auto) Lymph % (Auto) [place] % (Auto) Eos % (Auto) Baso % (Auto) Lymph # (Auto) [place] # (Auto) Eos # (Auto) Baso # (Auto) Abs Immat Gran (auto) Absolute Neuts (auto) Absolute Nucleated RBC Nucleated RBC % (auto) VBG pH 7.36 VBG pCO2 55 VBG pO2 42 VBG HCO3 31 H VBG O2 Saturation 68.0 VBG Base Excess 5.4 Anion Gap Estim Creat Clear Calc Estimated GFR Random Glucose Lactic Acid Calcium Total Bilirubin Direct Bilirubin AST ALT Alkaline Phosphatase Troponin I High Sens B-Natriuretic Peptide Total Protein Albumin Lipase Urine Color Urine Appearance Urine pH Ur Specific [place] Urine Protein Urine Glucose (UA) Urine Ketones Urine Blood Urine Nitrite Ur Leukocyte Esterase Urine RBC Urine WBC Ur Squamous Epith Cells Urine Bacteria Hyaline Casts Influenza Type A (PCR) NEGATIVE Influenza Type B (PCR) NEGATIVE RSV RNA Qual (PCR) NEGATIVE SARS-CoV-2 RNA (RT-PCR) NEGATIVE Imaging Radiologist's Impressions: Impressions Chest X-Ray 12/29/22 02:30 IMPRESSION: No new acute findings identified. Coarsened appearance of the interstitium is similar to prior and may reflect chronic lung disease. 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 #. Acute hypoxemic respiratory failure and Sepsis due to community-acquired pneumonia. Resuscitated with IV crystalloids. Initiating empiric IV antibiotics. Blood culture, sputum culture pending. Lactic acid obtained. Monitor oxygen saturation and wean as tolerated. #. Congestive heart failure with preserved ejection fraction. Hold Lasix in the setting of sepsis. Resume as appropriate #. Hjq-aifnaio-rlzpbbaay diabetes mellitus. Hold metformin. Initiating Accu-Cheks with sliding scale insulin #. BPH on Flomax #. Gastroesophageal reflux disease on PPI #. Mood disorder. Continue home mood stabilizers #. Permanent atrial fibrillation on anticoagulation #. Microcytic anemia. Obtaining iron panel Med rec pending DVT prophylaxis: Sada Full Code Admit as inpatient and will require two night minimum hospital stay for supplemental oxygen and IV antibiotics Time Spent With Patient Time: Total time managing care of this patient today ____ minutes. Quality Stroke Does the patient have a stroke diagnosis?: No VTE Prior VTE?: No VTE Risk Level:: Medical - moderate - high VTE Device Contraindication: Treatment Not Indicated VTE Drug Contraindication: N/A - Med Ordered
[2022-12-29] MEDS: cefTRIAXone sodium 1 GM in 0.9 % Sodium Chloride 50 ML IV (06:43)
[2022-12-29 06:59] LABS: Iron 15 mcg/dL (45-160); Percent Iron Saturation 7 % (15-50); Total Iron Binding Capacity 213 mcg/dL (228-428); Unsaturated Iron Binding 198 ug/dL
[2022-12-29 07:10] LABS: Glucose, Whole Blood 106 mg/dL (60-115)
--- NOTE | 2022-12-29 07:40 | PC.NURSE ---
called kitchen for breakfast for pt
--- NOTE | 2022-12-29 07:58 | PC.NURSE ---
pt a&ox3, vss, afib on the manipulator operator with frequent PVCs, medications d/c'd, on 4L O2% - wet cough present, crackles and inspiratory and expiratory wheezing noted throughout, no edema noted, insulin ordered but waiting for breakfast prior to administration.
[2022-12-29] MEDS: 0.9 % Sodium Chloride Flush 3 ML SYRINGE IVFLUSH ×3 (08:26→21:37)
[2022-12-29] MEDS: Azithromycin 500 MG in 0.9 % Sodium Chloride 250 ML 125 MG IV (08:26)
--- NOTE | 2022-12-29 08:30 | PC.NURSE ---
pt medicated with abx per order, no insulin given as poc was 106
--- NOTE | 2022-12-29 09:05 | PHA.MEDREC ---
Pharmacy Consult ? Medication Reconciliation Pharmacy has completed the medication reconciliation. used list from [facility] and [facility]
--- NOTE | 2022-12-29 09:41 | PC.NURSE ---
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
--- NOTE | 2022-12-29 11:27 | PC.NURSE ---
IVF infused and d/c'd, vss, afib on the nurse monitoring w/ frequent PVCs, wheezing and crackles noted throughout.
--- NOTE | 2022-12-29 12:06 | MHC.CM.PN ---
Attempted to meet with patient in regards to discharge planning. Patient currently sleeping. Spoke with patient/HCP, Lupe Camacho via telephone at [phone]. Patient is a LTC resident of [facility]. Anticipate patient will return via BLS when medically stable. IMM explained and sent via certified mail to Lupe at [address] [place], [place] [id number]. Patient received 3 Moderna vaccines and 1 Pfizer vaccine. Copy of HCP verified to be on file. Lupe is requesting update on her father. ANNA Fagan has been asked to reach out to Lupe to provide an update. Continue to monitor for d/c needs.
[2022-12-29 12:27] LABS: Glucose, Whole Blood 141 mg/dL (60-115)
--- NOTE | 2022-12-29 13:30 | PC.NURSE ---
lunch placed bedside of pt - no insulin given d/t POC = 141. pt's family bedside
--- NOTE | 2022-12-29 14:07 | PM.EVENT ---
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 Acute hypoxemic respiratory failure and Sepsis due to community-acquired pneumonia.? Resuscitated with IV crystalloids.? empiric IV antibiotics.? Blood culture, sputum culture pending.? Monitor oxygen saturation and wean as tolerated. Congestive heart failure with preserved ejection fraction.?no exacerbation Hold Lasix in the setting of sepsis.? Resume as appropriate Pvj-rqdtmwd-umpflisjk diabetes mellitus.? Hold metformin.? Initiating Accu-Cheks with sliding scale insulin BPH on Flomax Gastroesophageal reflux disease on PPI Mood disorder.? Continue home mood stabilizers Permanent atrial fibrillation on anticoagulation Microcytic anemia.? iron 15/TIBC 213/% 7 iron infusion daily iron supplementation DVT prophylaxis: Sada Full Code Admit as inpatient and will require two night minimum hospital stay for supplemental oxygen and IV antibiotics Time Spent With Patient Time: Total time managing care of this patient today ____ minutes.
--- NOTE | 2022-12-29 15:07 | PC.NURSE ---
pharmacy notified for missing med
--- NOTE | 2022-12-29 16:56 | PC.NURSE ---
pt has had 2 episodes of large amount of foul smelling diarrhea, this nurse has notified hospitalist to see if they would like to send a stool sample to the lab.
[2022-12-29] MEDS: Iron Sucrose Complex 100 MG in 0.9 % Sodium Chloride 50 ML 220 MG IV (17:12)
--- NOTE | 2022-12-29 17:19 | PC.NURSE ---
iron administered per provider order.
--- NOTE | 2022-12-29 17:24 | PC.NURSE ---
stool sample sent to lab
[2022-12-29 17:39] LABS: Glucose, Whole Blood 125 mg/dL (60-115)
[2022-12-29] MEDS: Ferrous Sulfate 324 MG TABLET.DR PO (17:59)
--- NOTE | 2022-12-29 18:00 | PC.NURSE ---
medication administered per provider order.
[2022-12-29 19:15] LABS: CDiff Gene PCR NEGATIVE (Negative)
--- NOTE | 2022-12-29 20:30 | PC.NURSE ---
THIS RN ASSUMED CARE OF PT @ 1900. PT FAMILY AT BEDSIDE. THIS RN GAVE REPORT TO JUAN JOSE SALAS
[2022-12-29 20:38] LABS: Glucose, Whole Blood 166 mg/dL (60-115)
[2022-12-29] MEDS: Insulin Lispro 100 UNIT/ML 3 ML VIAL SUBCUT (21:02)
[2022-12-30] VITALS (9 sets, daily range): BP systolic 160–178; BP diastolic 76–82; PULSE 78–112; RESP 18–20; TEMP 36.7–37.1; O2SAT 95–100
[2022-12-30] MEDS: cefTRIAXone sodium 1 GM in 0.9 % Sodium Chloride 50 ML IV (06:16)
[2022-12-30 06:18] LABS: MANUAL DIFF FLAG NO
[2022-12-30 06:35] LABS: Basophils Percent Auto 0.2 % (0-2); Eosinophils Absolute Auto 0.5 X10*3/uL (0.0-0.4); Eosinophils Percent Auto 7.4 % (0-4); Hemoglobin 9.4 g/dl (14.0-18.0); Imm Gran Abs Auto 0.03 X10*3/uL (0.00-0.03); Imm Gran Pct Auto 0.5 % (0.0-0.4); Lymphocytes Absolute Auto 0.8 X10*3/uL (1.2-4.9); Lymphocytes Percent Auto 12.5 % (20-40); Mean Corpuscular HGB Conc 31.3 g/dl (31.0-36.0); Mean Corpuscular Hemoglobin 25.3 pg (27.0-33.0); Mean Corpuscular Volume 80.6 fL (80.0-98.0); Mean Platelet Volume 10.4 fL (9.4-12.4); Monocytes Absolute Auto 0.8 X10*3/uL (0.1-1.2); Monocytes Percent Auto 11.6 % (2-11); Neutrophils Absolute Auto 4.4 x10*3/uL (2.0-8.3); Neutrophils Percent Auto 67.8 % (45-73); Platelet Count 190 X10*3/uL (160-400); Red Blood Count 3.72 X10*6/uL (4.60-5.80); Red Cell Distribution Width 19.9 % (11.0-16.0); White Blood Count 6.5 X10*3/uL (4.8-10.8)
[2022-12-30 06:40] LABS: Anion Gap 11 (12-20); Blood Urea Nitrogen 13 mg/dL (9-16); Calcium 9.6 mg/dL (8.4-10.2); Carbon Dioxide 27 mmol/L (22-29); Chloride 104 mmol/L (96-108); Creatinine Clr Calc Pharmacy 61.8; Estimated Glomerular Filt Rate > 60; Glucose Random 117 mg/dL (60-115); Potassium 3.8 mmol/L (3.3-5.1); Sodium 138 mmol/L (135-145)
[2022-12-30] MEDS: Azithromycin 500 MG in 0.9 % Sodium Chloride 250 ML 125 MG IV (07:00)
[2022-12-30] MEDS: Albuterol/Iprat 2.5/0.5MG 3 ML AMPUL.NEB INHALE ×2 (07:29→19:27)
[2022-12-30 07:37] LABS: Glucose, Whole Blood 110 mg/dL (60-115)
[2022-12-30] MEDS: Ferrous Sulfate 324 MG TABLET.DR PO ×2 (08:41→16:55)
[2022-12-30] MEDS: 0.9 % Sodium Chloride Flush 3 ML SYRINGE IVFLUSH ×3 (08:42→22:23)
[2022-12-30 10:06] LABS: Adenovirus F 40/41 Not Detected (Not Detect.); Campylobacter Not Detected (Not Detect.); Cryptosporidium Not Detected (Not Detect.); Cyclospora cayetanensis Not Detected (Not Detect.); E. coli EAEC Not Detected (Not Detect.); E. coli EPEC Not Detected (Not Detect.); E. coli ETEC Not Detected (Not Detect.); E. coli STEC Not Detected (Not Detect.); Entamoeba histolytica Not Detected (Not Detect.); Giardia lamblia Not Detected (Not Detect.); Plesiomonas shigelloides Not Detected (Not Detect.); Salmonella Not Detected (Not Detect.); Shigella sp./EIEC Not Detected (Not Detect.); Vibrio Not Detected (Not Detect.); Vibrio Cholerae Not Detected (Not Detect.); Yersinia enterocolitica Not Detected (Not Detect.)
[2022-12-30 10:07] LABS: Astrovirus Not Detected (Not Detect.); Norovirus GI/GII Not Detected (Not Detect.); Rotavirus A Not Detected (Not Detect.); Sapovirus Not Detected (Not Detect.)
--- NOTE | 2022-12-30 11:26 | HO.PM.IMPN ---
Subjective Subjective Date of Service: 12/30/22 Review of Systems Follow up PNA felling better still with cough Physical Exam Vital Signs: Vital Signs: Last Vital Signs Temp 98.0 F 12/30/22 08:00 Pulse 102 H 12/30/22 08:00 Resp 18 12/30/22 08:00 BP 160/80 H 12/30/22 08:00 Pulse Ox 96 12/30/22 08:00 O2 Del Method Nasal Cannula 12/30/22 08:00 O2 Flow Rate 4 12/30/22 08:00 Oxygen Flow Rate 4 12/29/22 03:25 BMI result Body Mass Index 26.3 Appearing in no acute distress lung sounds rhonchi heart regular rate rhythm, clear S1, S2 positive bowel sounds, abdomen is soft, nontender neuro patient is alert x3, no focal deficits Objective Data Active Medications Acetaminophen (Acetaminophen 325 Mg Tablet) 650 mg PO Q6H PRN PRN Reason: Pain, Mild (Pain Scale 1-3) Albuterol/Ipratropium (Albuterol/Iprat 2.5/0.5mg 3 Ml Ampul.Neb) 3 ml INHALE RQ4H WHILE AWAKE [facility] Last Admin: 12/30/22 07:29 Dose: 3 ml Documented By: TERI Benzonatate (Benzonatate 100 Mg Capsule) 100 mg PO TID PRN PRN Reason: Cough Dextrose (Dextrose 50 % 25 Gm/50 Ml Syringe) 25 gm IVPUSH Q15M PRN; Protocol PRN Reason: per Hypoglycemia Standing Ord. Ferrous Sulfate (Ferrous Sulfate 324 Mg Tablet.) 324 mg PO BIDWM [facility] Last Admin: 12/30/22 08:41 Dose: 324 mg Documented By: JARON Glucose (Glucose Gel 15 Gm Gel..Gram.) 15 gm PO Q15M PRN; Protocol PRN Reason: per Hypoglycemia Standing Ord. Ceftriaxone Sodium 1 gm/ (Sodium Chloride) 50 mls @ 100 mls/hr IV Q24H [facility] Last Infusion: 12/30/22 07:00 Dose: 0 mls/hr Documented By: JARON Azithromycin 500 mg/ Sodium (Chloride) 250 mls @ 125 mls/hr IV Q24H [facility] [place] Last Infusion: 12/30/22 09:06 Dose: 0 mls/hr Documented By: JARON Insulin Human Lispro (Insulin Lispro 100 Unit/Ml 3 Ml Vial) 0 unit SUBCUT QIDACHS [facility]; Protocol Last Admin: 12/30/22 07:39 Dose: Not Given Documented By: JARON Non-Admin Reason: No Insulin Coverage Melatonin (Melatonin 3 Mg Tablet) 6 mg PO BEDTIME PRN PRN Reason: Insomnia Ondansetron HCl (Ondansetron Hcl 4 Mg/2 Ml Vial) 4 mg IVPUSH Q8H PRN PRN Reason: Nausea and Vomiting Pharmacy Consult (Consult Rx Perform Med Rec) 1 each MISCELLANE ONCE PRN PRN Reason: Consult order Sodium Chloride (0.9 % Sodium Chloride Flush 3 Ml Syringe) [facility] Last Admin: 12/30/22 08:42 Dose: 3 ml Documented By: JARON Labs 12/30/22 05:30 12/30/22 06:09 Labs: Laboratory Results - last 24 hr 12/29/22 12/29/22 12/29/22 12:23 17:24 17:24 MCV MCH MCHC RDW Plt Count MPV Immature Gran % (Auto) Neut % (Auto) Lymph % (Auto) Williams % (Auto) Eos % (Auto) Baso % (Auto) Lymph # (Auto) Williams # (Auto) Eos # (Auto) Baso # (Auto) Abs Immat Gran (auto) Absolute Neuts (auto) Absolute Nucleated RBC Nucleated RBC % (auto) Anion Gap Estim Creat Clear Calc Estimated GFR POC Glucose 141 H Random Glucose Calcium Stl C. cayetanensis PCR Not Detected Stool Rotavirus A PCR Not Detected Stl Adenov F 40/41 PCR Not Detected Stool Astrovirus (PCR) Not Detected Stool Campylobacter PCR Not Detected Stool Cryptosporidium PCR Not Detected Stl Sh Tox Pr E STEC PCR Not Detected Stool E coli O157 PCR Not applicable Stl Enterotoxigenic E PCR Not Detected Stool EPEC (PCR) Not Detected Stool EAEC (PCR) Not Detected Stl E. histolytica PCR Not Detected Stool Giardia Lamblia PCR Not Detected Stl P. shigelloides PCR Not Detected Stool Salmonella PCR Not Detected Stool Sapovirus (PCR) Not Detected Stl Shigella/EIEC PCR Not Detected St Y.enterocolitica PCR Not Detected Stool Vibrio (PCR) Not Detected Stl Vibrio cholerae PCR Not Detected Stl Norovirus GI/GII PCR Not Detected C. difficile Tox B Gene NEGATIVE 12/29/22 12/29/22 12/30/22 17:34 20:34 05:30 MCV 80.6 MCH 25.3 L MCHC 31.3 RDW 19.9 H Plt Count 190 MPV 10.4 Immature Gran % (Auto) 0.5 H Neut % (Auto) 67.8 Lymph % (Auto) 12.5 L Williams % (Auto) 11.6 H Eos % (Auto) 7.4 H Baso % (Auto) 0.2 Lymph # (Auto) 0.8 L Williams # (Auto) 0.8 Eos # (Auto) 0.5 H Baso # (Auto) 0.0 Abs Immat Gran (auto) 0.03 Absolute Neuts (auto) 4.4 Absolute Nucleated RBC 0.000 Nucleated RBC % (auto) 0.0 Anion Gap Estim Creat Clear Calc Estimated GFR POC Glucose 125 H 166 H Random Glucose Calcium Stl C. cayetanensis PCR Stool Rotavirus A PCR Stl Adenov F 40 PCR Stool Astrovirus (PCR) Stool Campylobacter PCR Stool Cryptosporidium PCR Stl Sh Tox Pr E STEC PCR Stool E coli O157 PCR Stl Enterotoxigenic E PCR Stool EPEC (PCR) Stool EAEC (PCR) Stl E. histolytica PCR Stool Giardia Lamblia PCR Stl P. shigelloides PCR Stool Salmonella PCR Stool Sapovirus (PCR) Stl Shigella/EIEC PCR St Y.enterocolitica PCR Stool Vibrio (PCR) Stl Vibrio cholerae PCR Stl Norovirus GI/GII PCR C. difficile Tox B Gene 12/30/22 12/30/22 06:09 07:21 MCV MCH MCHC RDW Plt Count MPV Immature Gran % (Auto) Neut % (Auto) Lymph % (Auto) Williams % (Auto) Eos % (Auto) Baso % (Auto) Lymph # (Auto) Williams # (Auto) Eos # (Auto) Baso # (Auto) Abs Immat Gran (auto) Absolute Neuts (auto) Absolute Nucleated RBC Nucleated RBC % (auto) Anion Gap 11 L Estim Creat Clear Calc 61.8 Estimated GFR > 60 POC Glucose 110 Random Glucose 117 H Calcium 9.6 Stl C. cayetanensis PCR Stool Rotavirus A PCR Stl Adenov F PCR Stool Astrovirus (PCR) Stool Campylobacter PCR Stool Cryptosporidium PCR Stl Sh Tox Pr E STEC PCR Stool E coli O157 PCR Stl Enterotoxigenic E PCR Stool EPEC (PCR) Stool EAEC (PCR) Stl E. histolytica PCR Stool Giardia Lamblia PCR Stl P. shigelloides PCR Stool Salmonella PCR Stool Sapovirus (PCR) Stl Shigella/EIEC PCR St Y.enterocolitica PCR Stool Vibrio (PCR) Stl Vibrio cholerae PCR Stl Norovirus GI/GII PCR C. difficile Tox B Gene Microbiology Microbiology Results: Microbiology 12/29/22 01:38 Blood Culture - Preliminary Blood - Venous No growth after 24 hours. 12/29/22 01:38 Blood Culture - Preliminary Blood - Venous No growth after 24 hours. 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 Acute hypoxemic respiratory failure and Sepsis due to community-acquired pneumonia.? sepsis resolved continue Rocephin and azithromycin Blood culture neg after 24 hrs , sputum culture pending.? mucinex for cough Monitor oxygen saturation and wean as tolerated. Congestive heart failure with preserved ejection fraction.?no exacerbation? Hold Lasix in the setting of sepsis.? Resume as appropriate Zwj-ccaeieg-ymvbnhdrb diabetes mellitus.? Hold metformin.? Initiating Accu-Cheks with sliding scale insulin BPH on Flomax Gastroesophageal reflux disease on PPI Mood disorder.? Continue home mood stabilizers Permanent atrial fibrillation on anticoagulation Microcytic anemia.? iron 15/TIBC 213/% 7 iron infusion daily iron supplementation DVT prophylaxis: Sada Full Code Attending Dr. Skyler APODACA return to LTC when medically clear continued hospital stay for supplemental oxygen and IV antibiotics Time Spent With Patient Time: Total time managing care of this patient today ____ minutes. Quality Stroke Does the patient have a stroke diagnosis?: No VTE Prior VTE?: No VTE Risk Level:: Medical - moderate - high VTE Device Contraindication: Treatment Not Indicated VTE Drug Contraindication: N/A - Med Ordered
--- NOTE | 2022-12-30 11:33 | P.CDIM_ITS ---
PROVIDER RESPONSE TEXT: To clarify, the appropriate diagnosis supported by the clinical indicators: Iron deficiency anemia QUERY TEXT: PHYSICIAN'S DOCUMENTATION REQUEST Date of Query: 12/30/2022 07:57 AM EDT Patient Name: Teofilo Camacho Admit Date: 12/29/2022 Dear Gracia Camacho, A review of the medical record indicates additional documentation may be needed. Please review below and update the documentation accordingly. Clinical Indicators: LABS: Iron 15 L IV Iron sucrose Daily iron supplements Based on the above, could you clarify which of the following is the most likely type of anemia you ar e evaluating, treating, and/or monitoring? Iron deficiency anemia Other indicate etiology, such as dietary, drug-induced, etc Other (explain)Clinically unable to determine (explain)Thank you, Vero Goddard, CCS, CDIS Use of terms such as suspected, likely, concern for, or probable (associated with a specific diagnosi s that is being evaluated, monitored, or treated as if it exists) are acceptable and can be coded in the inpatient se tting, when documented at the time of discharge. Please use your independent medical judgment in providing your response. THIS QUERY IS PART OF THE PERMANENT MEDICAL RECORD
[2022-12-30 11:34] LABS: Glucose, Whole Blood 132 mg/dL (60-115)
[2022-12-30 16:36] LABS: Glucose, Whole Blood 158 mg/dL (60-115)
[2022-12-30] MEDS: Insulin Lispro 100 UNIT/ML 3 ML VIAL SUBCUT (16:55)
[2022-12-30 20:28] LABS: Glucose, Whole Blood 117 mg/dL (60-115)
[2022-12-30] MEDS: Melatonin 3 MG TABLET 6 MG PO (22:23)
[2022-12-31] VITALS (8 sets, daily range): BP systolic 149–158; BP diastolic 52–73; PULSE 81–90; RESP 16–18; TEMP 36.6–36.9; O2SAT 91–98
[2022-12-31] MEDS: cefTRIAXone sodium 1 GM in 0.9 % Sodium Chloride 50 ML IV (06:10)
[2022-12-31] MEDS: Azithromycin 500 MG in 0.9 % Sodium Chloride 250 ML 125 MG IV (06:51)
[2022-12-31 07:26] LABS: Glucose, Whole Blood 106 mg/dL (60-115)
[2022-12-31] MEDS: Albuterol/Iprat 2.5/0.5MG 3 ML AMPUL.NEB INHALE ×4 (07:45→19:26)
[2022-12-31] MEDS: Ferrous Sulfate 324 MG TABLET.DR PO ×2 (08:33→16:08)
[2022-12-31] MEDS: 0.9 % Sodium Chloride Flush 3 ML SYRINGE IVFLUSH ×3 (08:34→20:31)
[2022-12-31 11:29] LABS: Glucose, Whole Blood 153 mg/dL (60-115)
[2022-12-31] MEDS: Insulin Lispro 100 UNIT/ML 3 ML VIAL SUBCUT ×2 (11:44→16:51)
--- NOTE | 2022-12-31 12:06 | HO.PM.IMPN ---
Subjective Subjective Date of Service: 12/31/22 Review of Systems Follow up PNA felling better still with cough Physical Exam Vital Signs: Vital Signs: Last Vital Signs Temp 97.8 F 12/31/22 07:21 Pulse 84 12/31/22 11:45 Resp 18 12/31/22 11:45 BP 149/72 H 12/31/22 07:21 Pulse Ox 97 12/31/22 07:21 O2 Del Method Nasal Cannula 12/31/22 07:21 O2 Flow Rate 2 12/31/22 07:21 Oxygen Flow Rate 4 12/29/22 03:25 BMI result Body Mass Index 26.3 Appearing in no acute distress lung sounds are clear to auscultation heart regular rate rhythm, clear S1, S2 positive bowel sounds, abdomen is soft, nontender neuro patient is alert x3, no focal deficits Objective Data Active Medications Acetaminophen (Acetaminophen 325 Mg Tablet) 650 mg PO Q6H PRN PRN Reason: Pain, Mild (Pain Scale 1-3) Albuterol/Ipratropium (Albuterol/Iprat 2.5/0.5mg 3 Ml Ampul.Neb) 3 ml INHALE RQ4H WHILE AWAKE [facility] Last Admin: 12/31/22 11:45 Dose: 3 ml Documented By: AYAN Benzonatate (Benzonatate 100 Mg Capsule) 100 mg PO TID PRN PRN Reason: Cough Dextrose (Dextrose 50 % 25 Gm/50 Ml Syringe) 25 gm IVPUSH Q15M PRN; Protocol PRN Reason: per Hypoglycemia Standing Ord. Ferrous Sulfate (Ferrous Sulfate 324 Mg Tablet.) 324 mg PO BIDWM [facility] Last Admin: 12/31/22 08:33 Dose: 324 mg Documented By: JARON Glucose (Glucose Gel 15 Gm Gel..Gram.) 15 gm PO Q15M PRN; Protocol PRN Reason: per Hypoglycemia Standing Ord. Ceftriaxone Sodium 1 gm/ (Sodium Chloride) 50 mls @ 100 mls/hr IV Q24H [facility] Last Infusion: 12/31/22 06:51 Dose: 0 mls/hr Documented By: TIFFANYORALB Azithromycin 500 mg/ Sodium (Chloride) 250 mls @ 125 mls/hr IV Q24H [facility] Last Infusion: 12/31/22 08:51 Dose: 0 mls/hr Documented By: JARON Insulin Human Lispro (Insulin Lispro 100 Unit/Ml 3 Ml Vial) 0 unit SUBCUT QIDACHS [facility]; Protocol Last Admin: 12/31/22 11:44 Dose: 2 unit Documented By: JARON Melatonin (Melatonin 3 Mg Tablet) 6 mg PO BEDTIME PRN PRN Reason: Insomnia Last Admin: 12/30/22 22:23 Dose: 6 mg Documented By: OZORALB Ondansetron HCl (Ondansetron Hcl 4 Mg/2 Ml Vial) 4 mg IVPUSH Q8H PRN PRN Reason: Nausea and Vomiting Pharmacy Consult (Consult Rx Perform Med Rec) 1 each MISCELLANE ONCE PRN PRN Reason: Consult order Sodium Chloride (0.9 % Sodium Chloride Flush 3 Ml Syringe) [facility] Admin: 12/31/22 08:34 Dose: 3 ml Documented By: JARON Labs 12/30/22 05:30 12/30/22 06:09 Labs: Laboratory Results - last 24 hr 12/30/22 12/30/22 12/31/22 16:32 20:22 07:21 POC Glucose 158 H 117 H 106 12/31/22 11:21 POC Glucose 153 H Microbiology Microbiology Results: Microbiology 12/29/22 01:38 Blood Culture - Final Blood - Venous Coag negative Staphylococcus 12/29/22 01:38 Blood Culture - Preliminary Blood - Venous No growth after 48 hours. 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 Congestive heart failure with preserved ejection fraction.?no exacerbation? Lasix on hold due to sepsis now with rales check BNP and cxr, start IV lasix if BNP elevated Acute metabolic encephalopathy Multifactorial, infection, medications Daughter concerned about gabapentin dosing especially combined with infection antibiotics Gabapentin has been on hold since admission, can resume on discharge Acute hypoxemic respiratory failure and Sepsis due to community-acquired pneumonia.? sepsis resolved continue Rocephin and azithromycin coag-negative staph 1/2 blood cultures mucinex for cough Monitor oxygen saturation and wean as tolerated. Adu-sqxvpzx-ojndmvpmv diabetes mellitus.? Hold metformin.? Initiating Accu-Cheks with sliding scale insulin BPH on Flomax Gastroesophageal reflux disease on PPI Mood disorder.? Continue home mood stabilizers Permanent atrial fibrillation on anticoagulation Microcytic anemia.? iron 15/TIBC 213/% 7 iron infusion daily iron supplementation DVT prophylaxis: Sada Full Code Attending Dr. Skyler APODACA return to LTC when medically clear continued hospital stay for supplemental oxygen and IV antibiotics Time Spent With Patient Time: Total time managing care of this patient today ____ minutes. Quality Stroke Does the patient have a stroke diagnosis?: No VTE Prior VTE?: No VTE Risk Level:: Medical - moderate - high VTE Device Contraindication: Treatment Not Indicated VTE Drug Contraindication: N/A - Med Ordered
[2022-12-31] MEDS: Furosemide 40 MG TABLET PO (12:49)
[2022-12-31] MEDS: Docusate Sodium 100 MG CAPSULE PO ×2 (12:49→22:16)
--- NOTE | 2022-12-31 14:14 | PC.NURSE ---
3 STAFF MEMBERS ATTEMPTED TO GET PT OOB TO CHAIR , PT VERY WEAK AND UNABLE TO GET UP . WE ATTEMPTED A USE THE [employer] DEVICE AND THAT WAS ALSO UNSUCCESSFUL .
--- NOTE | 2022-12-31 15:04 | MHC.CM.PN ---
DP return to [facility] via BLS. Per MD rounds patient anticipated to discharge tomorrow.
[2022-12-31 16:08] LABS: Glucose, Whole Blood 151 mg/dL (60-115)
[2022-12-31] MEDS: hydrALAZINE HCl 50 MG TABLET PO ×2 (16:08→20:31)
[2022-12-31 16:40] LABS: B Type Natriuretic Peptide 177 pg/mL (<100)
[2022-12-31 20:27] LABS: Glucose, Whole Blood 108 mg/dL (60-115)
[2022-12-31] MEDS: Melatonin 3 MG TABLET 6 MG PO ×2 (20:31→22:01)
[2022-12-31] MEDS: Artificial Tears 15 ML DROPS 2 DROP EYE-BOTH (20:31)
[2022-12-31] MEDS: Apixaban 5 MG TABLET PO (20:31)
[2022-12-31] MEDS: Acetaminophen 325 MG TABLET 650 MG PO (22:01)
[2022-12-31] MEDS: Benzonatate 100 MG CAPSULE PO (22:01)
[2023-01-01 03:13] VITALS: BP 127/58; PULSE 90; RESP 19; TEMP 36.4; O2SAT 94
[2023-01-01] MEDS: cefTRIAXone sodium 1 GM in 0.9 % Sodium Chloride 50 ML IV (05:34)
[2023-01-01] MEDS: Omeprazole 20 MG CAPSULE.DR PO (05:34)
[2023-01-01] MEDS: Artificial Tears 15 ML DROPS 2 DROP EYE-BOTH ×2 (05:38→07:56)
[2023-01-01 06:04] LABS: Anion Gap 16 (12-20); Blood Urea Nitrogen 10 mg/dL (9-16); Calcium 9.2 mg/dL (8.4-10.2); Carbon Dioxide 22 mmol/L (22-29); Chloride 103 mmol/L (96-108); Creatinine Clr Calc Pharmacy 65.7; Estimated Glomerular Filt Rate > 60; Glucose Random 107 mg/dL (60-115); Potassium 3.4 mmol/L (3.3-5.1); Sodium 138 mmol/L (135-145)
[2023-01-01] MEDS: Azithromycin 500 MG in 0.9 % Sodium Chloride 250 ML 125 MG IV (06:10)
[2023-01-01] MEDS: Benzonatate 100 MG CAPSULE PO (06:37)
[2023-01-01 07:29] LABS: Glucose, Whole Blood 110 mg/dL (60-115)
[2023-01-01 07:52] VITALS: BP 150/64; PULSE 81; RESP 18; TEMP 36; O2SAT 96
[2023-01-01] MEDS: Tamsulosin HCL 0.4 MG CAPSULE PO (07:57)
[2023-01-01] MEDS: hydrALAZINE HCl 50 MG TABLET PO ×2 (07:57→15:04)
[2023-01-01] MEDS: Ferrous Sulfate 324 MG TABLET.DR PO (07:57)
[2023-01-01] MEDS: Sertraline HCL 50 MG TABLET PO (07:57)
[2023-01-01] MEDS: Atorvastatin Calcium 20 MG TABLET PO (07:57)
[2023-01-01] MEDS: Colchicine 0.6 MG TABLET PO (07:57)
[2023-01-01] MEDS: metFORMIN HCl 500 MG TABLET PO (07:57)
[2023-01-01] MEDS: Apixaban 5 MG TABLET PO (07:58)
[2023-01-01] MEDS: Loratadine 10 MG TABLET PO (07:58)
[2023-01-01] MEDS: 0.9 % Sodium Chloride Flush 3 ML SYRINGE IVFLUSH ×2 (07:58→15:04)
[2023-01-01 11:18] LABS: Glucose, Whole Blood 121 mg/dL (60-115)
--- NOTE | 2023-01-01 11:36 | P.DS_ITS ---
DS: Providers Provider Date of Service: 01/01/23 Date of admission: 12/29/22 06:20 Date of discharge: 01/01/23 Primary care physician: Elena Chan MD Attending physician on discharge: Osvaldo Holland Discharging clinician: Jeanie Cabrera DS: Diagnosis Discharge Diagnosis (1) Sepsis: Status: Acute DS: Summary Hospital Course Hospital Course: From H&P on day of admission This is a 87-year-old male with pertinent history of essential hypertension, xrc-cdlppvf-gnnzdpdtw diabetes mellitus, gastroesophageal reflux disease, mood disorder, BPH, congestive heart failure with preserved ejection fraction, 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 who presents to the emergency department for evaluation of dyspnea.? Patient states he has been having dyspnea for the last 2-3 days.? It is associated with productive cough and pleuritic chest discomfort.? Also complains of associated fever.? Denies orthopnea or PND.? No wheezing.? Patient denies coughing or choking with food.? No palpitations, abdominal pain, changes in urinary or bowel habits Acute metabolic encephalopathy Multifactorial related to infection, medications. resolved. Acute hypoxemic respiratory failure and Sepsis due to community-acquired pneumonia.? sepsis resolved. treated with IV Rocephin and azithromycin. blood cultures growing coag-negative staph 1/2 blood cultures probable contaminant. he has been weaned off supplemental oxygen as currently saturating in the high 90s on room air. He has remained afebrile, Tachycardia and tachypnea have resolved. He will be discharged back to facility to complete course of antibiotics. Time Spent with Patient Time attestation: Total time managing care of this patient today ____ minutes. Discharge coordination time: Greater than 30 minutes Quality: Safe Use of Opioids Does Pt have an Active Cancer Diagnosis on the Problem List?: No Quality: Stroke Does the patient have a stroke diagnosis?: No Physical Exam Vital Signs: Vital Signs: Last Vital Signs Temp 96.8 F 01/01/23 07:52 Pulse 81 01/01/23 07:52 Resp 18 01/01/23 07:52 BP 150/64 H 01/01/23 07:52 Pulse Ox 96 01/01/23 07:52 O2 Del Method Room Air 01/01/23 07:52 O2 Flow Rate 2 12/31/22 07:21 Oxygen Flow Rate 4 12/29/22 03:25 BMI result Body Mass Index 26.3 Const: General: cooperative, comfortable, no acute distress, alert and awake Nutritional Appearance: average body habitus Resp: Effort & Inspection: normal respiratory effort, Actively coughing, no respiratory distress and no use of accessory muscles Cardio: Rate: regular rate Heart sounds: S1 normal heart sound present and S2 normal heart sound present GI: Inspection: No distended Palpation (GI): Soft to palpation Extrem: General: Yes no pedal edema DS: Data Data Completed and Pending Completed studies during hospitalization [Text1]: Procedures Assistance with Respiratory Ventilation, Less than 24 Consecutive Hours, Continuous Positive Airway Pressure (01/25/21) Drainage of Right Pleural Cavity, Percutaneous Approach (01/25/21) Insertion of Infusion Device into Left Basilic Vein, Percutaneous Approach (01/25/21) Insertion of Infusion Device into Superior Vena Cava, Percutaneous Approach (12/25/20) Transfusion of Nonautologous Red Blood Cells into Peripheral Vein, Percutaneous Approach (12/25/20) Labs on day of discharge: Laboratory Results - last 24 hr 12/31/22 12/31/22 12/31/22 15:45 16:04 20:24 Sodium Potassium Chloride Carbon Dioxide Anion Gap BUN Creatinine Estim Creat Clear Calc Estimated GFR POC Glucose 151 H 108 Random Glucose Calcium B-Natriuretic Peptide 177 H 01/01/23 01/01/23 01/01/23 05:34 07:26 11:11 Sodium 138 Potassium 3.4 Chloride 103 Carbon Dioxide 22 Anion Gap 16 BUN 10 Creatinine 0.78 Estim Creat Clear Calc 65.7 Estimated GFR > 60 POC Glucose 110 121 H Random Glucose 107 Calcium 9.2 B-Natriuretic Peptide Preliminary micro results at discharge 12/29/22 01:38 Blood Culture - Preliminary Blood - Venous No growth after 48 hours. Discharge Plan Discharge Patient Disposition: [facility] Discharge Diagnosis: sepsis secondary to pneumonia Referrals: [facility] [Outside] Elena Chan MD [Primary Care Provider] - 1 Week Discharge Medications: New azithromycin 250 mg tablet 250 mg PO DAILY 2 Days Qty: 2 0RF cefuroxime axetil 500 mg tablet 500 mg PO BID 3 Days Qty: 6 0RF Continued apixaban [Eliquis] 5 mg tablet 5 mg PO BID Qty: 180 3RF metformin 500 mg tablet 500 mg PO DAILY tamsulosin 0.4 mg capsule 0.4 mg PO DAILY ferrous sulfate 325 mg (65 mg iron) tablet 325 mg PO DAILY melatonin 5 mg tablet 5 mg PO BEDTIME amlodipine 10 mg tablet 10 mg PO DAILY Rx Instructions: hold for BP less than 130/80 acetaminophen [Mapap (acetaminophen)] 325 mg Tablet 650 mg PO Q4H PRN (Reason: Fever Or Pain) acetaminophen 325 mg Tablet 325 mg PO MOWEFR Rx Instructions: take 30 min prior to physical therapy polyethylene glycol 3350 17 gram Powder In Packet 17 g PO DAILY PRN (Reason: Constipation) guaifenesin [Radha-Tussin] 100 mg/5 mL Liquid 200 mg PO Q6H PRN (Reason: Cough) ferrous sulfate 325 mg (65 mg iron) Tablet 325 mg PO Q2D docusate sodium 100 mg Capsule 100 mg PO Q12H gabapentin 100 mg capsule 200 mg PO BID loratadine 10 mg Tablet 10 mg PO DAILY cholecalciferol (vitamin D3) 1,250 mcg (50,000 unit) Capsule 1,250 mcg PO QMONTH atorvastatin 20 mg tablet 20 mg PO DAILY omeprazole 20 mg capsule,delayed release(DR/EC) 20 mg PO DAILY Rx Instructions: 30 min before dinner furosemide 40 mg tablet 40 mg PO Q OTHER DAY Protocol: Hold for SBP< HOLD for SBP < : 100 sertraline [Zoloft] 50 mg tablet 50 mg PO DAILY gabapentin 300 mg capsule 300 mg PO DAILY hydralazine 50 mg tablet 50 mg PO TID Rx Instructions: hold for BP less than 130/80 colchicine 0.6 mg tablet 0.6 mg PO DAILY Rx Instructions: stop date: 01/05/23 No Action (DME) nebulizers Misc See Rx Instructions .Route Rx Instructions: As directed Discharge Orders: Discharge Order (Routine); Ordered 01/01/23 Ordered By: Jeanie Cabrera Activity on Discharge: As tolerated Stand Alone Forms: Patient Portal Discharge page Care Plan Goals: see below Health Concerns: sepsis secondary to pneumonia Plan of Treatment: complete course of antibiotics for pneumonia continue cough syrup as needed for cough Assessment: see discharge summary
[2023-01-01] MEDS: Albuterol/Iprat 2.5/0.5MG 3 ML AMPUL.NEB INHALE ×2 (12:21→16:29)
[2023-01-01 12:23] VITALS: PULSE 115; RESP 18; O2SAT 94
--- NOTE | 2023-01-01 15:44 | MHC.CM.PN ---
PT CLEARED TO DC TODAY BACK TO [facility] LTC CM CALLED PTS DAUGHTER/HCP, DENNIS [phone] AND INFORMED HER OF PENDING DC SHE REPORTS SHE SPOKE TO THE HOSPITALIST YESTERDAY AND RECEIVED AN UPDATE SHE IS AWARE PT WILL GO AT 1630 HOURS VIA BLS
[2023-01-01 16:29] VITALS: PULSE 108; RESP 18; O2SAT 93
== END 2023-01-01 17:07 | DRG 871 ==
LOC: HO.ED 03:47 → HO.EDOVER 06:23 → HO.S3 19:21
PROVIDERS: Nurse Practitioner Acute Care; Admitting Provider Student in an Organized Health Care Education/Training Program; Emergency Provider Emergency Medicine; PCP Internal Medicine; Visit Provider Physician Assistant Medical
DX: A41.9 Sepsis, unspecified organism (principal); G93.41 Metabolic encephalopathy; J18.9 Pneumonia, unspecified organism; J96.01 Acute respiratory failure with hypoxia; I50.32 Chronic diastolic (congestive) heart failure; J44.0 Chronic obstructive pulmonary disease with (acute) lower respiratory infection; I48.21 Permanent atrial fibrillation; I11.0 Hypertensive heart disease with heart failure; D50.9 Iron deficiency anemia, unspecified; N40.0 Benign prostatic hyperplasia without lower urinary tract symptoms; E11.51 Type 2 diabetes mellitus with diabetic peripheral angiopathy without gangrene; G47.33 Obstructive sleep apnea (adult) (pediatric); K21.9 Gastro-esophageal reflux disease without esophagitis; Z20.822 Contact with and (suspected) exposure to COVID-19; Z99.3 Dependence on wheelchair; Z89.511 Acquired absence of right leg below knee; Z79.01 Long term (current) use of anticoagulants; Z79.84 Long term (current) use of oral hypoglycemic drugs; Z79.899 Other long term (current) drug therapy
CPT/HCPCS: 0241U; 36415; 71045; 71250; 80048; 80076; 81001; 81003; 82803; 82947; 83540; 83605; 83690; 83880; 84484; 85025; 87040; 87147; 87205; 87493; 87507; 93005; 94640; 97162; 99285; J0456; J0696; J1756; J1956

== ENCOUNTER → 2022-12-29 01:29 | Outpatient (BNV) | payer MEDICARE, SELFPAY | PROVIDERS: Admitting Provider Student in an Organized Health Care Education/Training Program; Emergency Provider Emergency Medicine; Visit Provider Internal Medicine Cardiovascular Disease | DX: R06.02 Shortness of breath (principal) | CPT/HCPCS: 93010 ==

== ENCOUNTER → 2022-12-29 06:20 | Outpatient (BNV) | payer MEDICARE, SELFPAY | PROVIDERS: Admitting Provider Student in an Organized Health Care Education/Training Program; Emergency Provider Emergency Medicine; Visit Provider Student in an Organized Health Care Education/Training Program | DX: A41.9 Sepsis, unspecified organism (principal); J96.01 Acute respiratory failure with hypoxia; J18.9 Pneumonia, unspecified organism | CPT/HCPCS: 99222; 99232; 99239; 99499 ==

== ENCOUNTER 2023-01-25 11:41 | Emergency (ER) | payer MEDICARE, SELFPAY ==
--- NOTE | ~2023-01-25 | XR_ITS ---
EXAMINATION: XR CHEST CLINICAL INFORMATION: Cough. COMPARISON: None available. TECHNIQUE: Frontal view of the chest was obtained. FINDINGS: No significant abnormality is noted involving the heart, lungs, mediastinum, bony thorax or soft tissues. XR/XR chest 1V IMPRESSION: Unremarkable chest examination.
[2023-01-25 11:46] VITALS: BP 145/74; PULSE 60; O2SAT 97
[2023-01-25 11:49] VITALS: BP 156/71; PULSE 76; RESP 14; TEMP 36.8; O2SAT 98; BMI 23.8
--- NOTE | 2023-01-25 11:49 | ECG_ITS ---
Test Reason : arrhythmia Blood Pressure : / mmHG Vent. Rate : 062 BPM Atrial Rate : 000 BPM P-R Int : 000 ms QRS Dur : 098 ms QT Int : 426 ms P-R-T Axes : 000 045 051 degrees QTc Int : 432 ms Atrial fibrillation Abnormal ECG When compared with ECG of 29-DEC-2022 01:29, ST no longer depressed in Anterolateral leads Nonspecific T wave abnormality no longer evident in Inferior leads T wave inversion no longer evident in Lateral leads Referred By: Miriam Mcmanus Electronically Signed By:CORINA WALKER
--- NOTE | 2023-01-25 11:58 | ED.GIBLEED ---
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 EMS notes that SNF told patient that he had one black bloody stool today. He denies this states he has no pain, n/v/d. He feels fine and doesn't want to be here. MD complaint: melena and gross hematochezia Onset (ago): day(s) (1) Severity: mild Relieving factors: none Exacerbating factors: none Context: history of GI bleed and anticoagulant use Associated symptoms: other (cough) Treatments Prior to Arrival: none Related Data Home Medications Medication Instructions Recorded Confirmed ferrous sulfate 325 mg (65 mg 325 mg PO DAILY 03/28/20 12/29/22 iron) tablet melatonin 5 mg tablet 5 mg PO BEDTIME 03/28/20 12/29/22 metformin 500 mg tablet 500 mg PO DAILY 03/28/20 12/29/22 tamsulosin 0.4 mg capsule 0.4 mg PO DAILY 03/28/20 12/29/22 acetaminophen 325 mg tablet (Mapap 650 mg PO Q4H PRN Fever Or Pain 01/25/21 12/29/22 (acetaminophen)) amlodipine 10 mg tablet 10 mg PO DAILY 10/14/21 12/29/22 furosemide 40 mg tablet 40 mg PO Q OTHER DAY 10/14/21 12/29/22 gabapentin 300 mg capsule 300 mg PO DAILY 08/05/22 12/29/22 nebulizers 08/05/22 12/16/22 colchicine (gout) 0.6 mg tablet 0.6 mg PO DAILY 12/02/22 12/29/22 hydralazine 50 mg tablet 50 mg PO TID 12/02/22 12/29/22 sertraline 50 mg tablet (Zoloft) 50 mg PO DAILY 12/16/22 12/29/22 acetaminophen 325 mg tablet 325 mg PO MOWEFR 12/29/22 12/29/22 atorvastatin 20 mg tablet 20 mg PO DAILY 12/29/22 12/29/22 cholecalciferol (vitamin D3) 1,250 1,250 mcg PO QMONTH 12/29/22 12/29/22 mcg (50,000 unit) capsule docusate sodium 100 mg capsule 100 mg PO Q12H 12/29/22 12/29/22 ferrous sulfate 325 mg (65 mg 325 mg PO Q2D 12/29/22 12/29/22 iron) tablet gabapentin 100 mg capsule 200 mg PO BID 12/29/22 12/29/22 guaifenesin 100 mg/5 mL oral 200 mg PO Q6H PRN Cough 12/29/22 12/29/22 liquid (Radha-Tussin) loratadine 10 mg tablet 10 mg PO DAILY 12/29/22 12/29/22 omeprazole 20 mg capsule,delayed 20 mg PO DAILY 12/29/22 12/29/22 release polyethylene glycol 3350 17 gram 17 g PO DAILY PRN Constipation 12/29/22 12/29/22 oral powder packet Previous Rx's Medication Instructions Recorded apixaban 5 mg tablet (Eliquis) 5 mg PO BID #180 tabs 09/21/20 azithromycin 250 mg tablet 250 mg PO DAILY 2 days #2 tabs 01/01/23 cefuroxime axetil 500 mg tablet 500 mg PO BID 3 days #6 tabs 01/01/23 Allergies Allergy/AdvReac Type Severity Reaction Status Date / Time bee pollen [BEE STINGS] Allergy Severe ANAPHYLAXIS Verified 12/16/22 13:59 doxycycline [DOXYCYCLINE] Allergy Unknown ? ALLERGY Verified 12/16/22 13:59 PER CONSUMER EDUCATOR SARDINES Allergy Mild ITCHING Uncoded 12/16/22 13:59 Review of Systems Review of Systems: ROS unable to be obtained due to dementia [facility] Past Medical History Source: old records reviewed Medical History Acute and chronic respiratory failure with hypercapnia Acute on chronic diastolic (congestive) heart failure Afib Alcoholic cardiomyopathy BPH (benign prostatic hyperplasia) CHF (congestive heart failure) CHF exacerbation Chronic heart failure with preserved ejection fraction (HFpEF) COPD (chronic obstructive pulmonary disease) COPD (chronic obstructive pulmonary disease) COVID-19 Diabetes 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 Father No problems noted. Son No problems noted. Son No problems noted. Son No problems noted. Son No problems noted. Daughter No problems noted. Daughter No problems noted. Daughter No problems noted. Social History Social History Household Members: Other Housing: Assisted Living Facility Housing Other:: [facility] Do you presently have visiting nurse or other home services: No Alcohol intake: never Patient Tobacco Use Status: Never used Tobacco Advance Directives: Yes Advance Directives on File: Yes Advance Directives Date on File: 03/28/20 service: No Current occupational status: retired Physical Exam Vital Signs: Vital Signs: Last Vital Signs Temp 98.2 F 01/25/23 11:49 Pulse 80 01/25/23 14:42 Resp 16 01/25/23 14:42 BP 149/71 H 01/25/23 14:42 Pulse Ox 95 01/25/23 14:42 O2 Del Method Room Air 01/25/23 14:42 Oxygen Flow Rate 3 01/25/23 11:49 BMI result Body Mass Index 23.8 Appearance: Alert. Oriented to self. No acute distress. Eyes: Pupils equal, round and reactive to light. ENT: Pharynx normal. Neck: Normal inspection. Neck supple. CVS: irregular heart rate and rhythm. Pulses normal. Respiratory: No respiratory distress. Breath sounds slightly diminished at bases coarse cough but able to clear it Abdomen: Soft and nontender. Rectal: light to dark brown but no brb seen on adult brief or on finger Skin: Skin warm and dry. Normal skin color. Normal skin turgor. Extremities: No lower extremity edema. No calf ttp Neuro: Oriented to self. No motor deficit. No sensory deficit. 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 He has no abdominal pain n/v or diarrhea. There is no blood on exam or on digit. He states he feels fine. He does have a coarse cough but is not hypoxic on his O2 from SNF. at this time basic labs, CXR given cough, guiac, type and screen. Will observe in ED for a little bit he denies pain to palpation. Hx of same in past GI consulted 2020 and family decided not to pursue EGD/colonoscopy. Differential Diagnosis Differential Diagnoses: The differential diagnosis associated with the presentation includes GI Bleed, chronic cough, anemia, weakness, FTT Admission/Observation Consideration of admission/observation: Escalation of care including admission/observation considered after discussion with family no GIB here and chronic guiac positive stools with stable H/H would not be a good candidate for anesthesia plan to DC back to SNF will monitor and ask SNF to trend CBC tomorrow - family agrees with plan Consult Healthcare Provider Management of the patient was discussed with: [place] 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 01/25/23 12:14 01/25/23 12:14 Labs: Lab Results 01/25/23 01/25/23 01/25/23 Range/Units 12:14 12:14 12:14 WBC 4.9 (4.8-10.8) X10*3/uL RBC 3.22 L (4.60-5.80) X10*6/uL Hgb 8.2 L (14.0-18.0) g/dl Hct 26.7 L (42.0-52.0) % MCV 82.9 (80.0-98.0) fL MCH 25.5 L (27.0-33.0) pg MCHC 30.7 L (31.0-36.0) g/dl RDW 19.9 H (11.0-16.0) % Plt Count 221 (160-400) X10*3/uL MPV 9.6 (9.4-12.4) fL Immature Gran % (Auto) 0.2 (0.0-0.4) % Neut % (Auto) 56.4 (45-73) % Lymph % (Auto) 17.5 L (20-40) % Keith % (Auto) 10.8 (2-11) % Eos % (Auto) 14.7 H (0-4) % Baso % (Auto) 0.4 (0-2) % Lymph # (Auto) 0.9 L (1.2-4.9) X10*3/uL Keith # (Auto) 0.5 (0.1-1.2) X10*3/uL Eos # (Auto) 0.7 H (0.0-0.4) X10*3/uL Baso # (Auto) 0.0 (0.0-0.2) X10*3/uL Abs Immat Gran (auto) 0.01 (0.00-0.03) X10*3/uL Absolute Neuts (auto) 2.8 (2.0-8.3) x10*3/uL Absolute Nucleated RBC 0.000 (0.0-0.012) X10*3/uL Nucleated RBC % (auto) 0.0 (0.0-0.2) /100WBC PT 19.3 H (11.1-13.3) SEC INR 1.6 H (0.9-1.1) Sodium 142 (135-145) mmol/L Potassium 4.3 D (3.3-5.1) mmol/L Chloride 106 (96-108) mmol/L Carbon Dioxide 30 H (22-29) mmol/L Anion Gap 10 L (12-20) BUN 23 H (9-16) mg/dL Creatinine 1.07 (0.5-1.4) mg/dL Estim Creat Clear Calc 52.7 Estimated GFR > 60 Random Glucose 102 (60-115) mg/dL Lactic Acid (0.5-2.0) mmol/L Calcium 10.4 H D (8.4-10.2) mg/dL Magnesium 2.1 (1.6-2.6) mg/dL Total Bilirubin 0.8 (0.0-1.0) mg/dL Direct Bilirubin 0.3 (0.0-0.5) mg/dL AST 17 (5-37) U/L ALT 9 (0-40) U/L Alkaline Phosphatase 63 (39-117) U/L Total Protein 7.5 (6.5-8.0) g/dL Albumin 3.8 (3.5-5.0) g/dL Lipase 7 L (8-78) U/L Stool Occult Blood (NEGATIVE) COVID-19 (ELPIDIO) (Negative) COVID-19 Clin Com Blood Type Antibody Screen 01/25/23 01/25/23 01/25/23 Range/Units 12:14 12:14 12:14 WBC (4.8-10.8) X10*3/uL RBC (4.60-5.80) X10*6/uL Hgb (14.0-18.0) g/dl Hct (42.0-52.0) % MCV (80.0-98.0) fL MCH (27.0-33.0) pg MCHC (31.0-36.0) g/dl RDW (11.0-16.0) % Plt Count (160-400) X10*3/uL MPV (9.4-12.4) fL Immature Gran % (Auto) (0.0-0.4) % Neut % (Auto) (45-73) % Lymph % (Auto) (20-40) % Keith % (Auto) (2-11) % Eos % (Auto) (0-4) % Baso % (Auto) (0-2) % Lymph # (Auto) (1.2-4.9) X10*3/uL Keith # (Auto) (0.1-1.2) X10*3/uL Eos # (Auto) (0.0-0.4) X10*3/uL Baso # (Auto) (0.0-0.2) X10*3/uL Abs Immat Gran (auto) (0.00-0.03) X10*3/uL Absolute Neuts (auto) (2.0-8.3) x10*3/uL Absolute Nucleated RBC (0.0-0.012) X10*3/uL Nucleated RBC % (auto) (0.0-0.2) /100WBC PT (11.1-13.3) SEC INR (0.9-1.1) Sodium (135-145) mmol/L Potassium (3.3-5.1) mmol/L Chloride (96-108) mmol/L Carbon Dioxide (22-29) mmol/L Anion Gap (12-20) BUN (9-16) mg/dL Creatinine (0.5-1.4) mg/dL Estim Creat Clear Calc Estimated GFR Random Glucose (60-115) mg/dL Lactic Acid 0.5 (0.5-2.0) mmol/L Calcium (8.4-10.2) mg/dL Magnesium (1.6-2.6) mg/dL Total Bilirubin (0.0-1.0) mg/dL Direct Bilirubin (0.0-0.5) mg/dL AST (5-37) U/L ALT (0-40) U/L Alkaline Phosphatase (39-117) U/L Total Protein (6.5-8.0) g/dL Albumin (3.5-5.0) g/dL Lipase (8-78) U/L Stool Occult Blood POSITIVE (NEGATIVE) COVID-19 (ELPIDIO) Negative (Negative) COVID-19 Clin Com See Note Blood Type Antibody Screen 01/25/23 01/25/23 Range/Units 12:14 14:33 WBC 5.1 (4.8-10.8) X10*3/uL RBC 3.20 L (4.60-5.80) X10*6/uL Hgb 8.1 L (14.0-18.0) g/dl Hct 25.9 L (42.0-52.0) % MCV 80.9 (80.0-98.0) fL MCH 25.3 L (27.0-33.0) pg MCHC 31.3 (31.0-36.0) g/dl RDW 19.9 H (11.0-16.0) % Plt Count 224 (160-400) X10*3/uL MPV 9.4 (9.4-12.4) fL Immature Gran % (Auto) (0.0-0.4) % Neut % (Auto) (45-73) % Lymph % (Auto) (20-40) % Keith % (Auto) (2-11) % Eos % (Auto) (0-4) % Baso % (Auto) (0-2) % Lymph # (Auto) (1.2-4.9) X10*3/uL Keith # (Auto) (0.1-1.2) X10*3/uL Eos # (Auto) (0.0-0.4) X10*3/uL Baso # (Auto) (0.0-0.2) X10*3/uL Abs Immat Gran (auto) (0.00-0.03) X10*3/uL Absolute Neuts (auto) (2.0-8.3) x10*3/uL Absolute Nucleated RBC 0.000 (0.0-0.012) X10*3/uL Nucleated RBC % (auto) 0.0 (0.0-0.2) /100WBC PT (11.1-13.3) SEC INR (0.9-1.1) Sodium (135-145) mmol/L Potassium (3.3-5.1) mmol/L Chloride (96-108) mmol/L Carbon Dioxide (22-29) mmol/L Anion Gap (12-20) BUN (9-16) mg/dL Creatinine (0.5-1.4) mg/dL Estim Creat Clear Calc Estimated GFR Random Glucose (60-115) mg/dL Lactic Acid (0.5-2.0) mmol/L Calcium (8.4-10.2) mg/dL Magnesium (1.6-2.6) mg/dL Total Bilirubin (0.0-1.0) mg/dL Direct Bilirubin (0.0-0.5) mg/dL AST (5-37) U/L ALT (0-40) U/L Alkaline Phosphatase (39-117) U/L Total Protein (6.5-8.0) g/dL Albumin (3.5-5.0) g/dL Lipase (8-78) U/L Stool Occult Blood (NEGATIVE) COVID-19 (ELPIDIO) (Negative) COVID-19 Clin Com Blood Type O Positive Antibody Screen NEGATIVE Independent Interpretation I performed an independent interpretation of an: EKG and Plain X-Ray (no pneumonia) Interpretation: Rate: 80 Rhythm: afib [place]: normal Normal QRS complex. ST T wave : no JOHN, nonspecific changes qTC: normal prior studies: no acute ischemia The study has been interpreted contemporaneously by me. . Radiology Impression Discussion of test interpretation with radiology: I have reviewed the radiologist's reading. Independent Historian Clinical information obtained from an independent historian. History obtained from or confirmed by: EMS External Record Review External record reviewed: Inpatient record Discharge Plan Discharge Clinical Impression: Anemia in chronic illness, Chronic cough, Guaiac positive stools Patient Disposition: Home, Self-Care Instructions: Chronic Cough (ED), Anemia (ED) Additional Instructions: chest xray normal, hemoglobin checked x 2 stable for patient - 8.2 no drop. chronically positive blood in stools for years with black stools - please repeat blood counts tomorrow with CBC - return for worsening bleeding, low blood pressure, vomiting, confusion, fevers or any other concerns. Prescriptions: No Action apixaban [Eliquis] 5 mg tablet 5 mg PO BID Qty: 180 3RF metformin 500 mg tablet 500 mg PO DAILY tamsulosin 0.4 mg capsule 0.4 mg PO DAILY ferrous sulfate 325 mg (65 mg iron) tablet 325 mg PO DAILY melatonin 5 mg tablet 5 mg PO BEDTIME amlodipine 10 mg tablet 10 mg PO DAILY Rx Instructions: hold for BP less than 130/80 acetaminophen [Mapap (acetaminophen)] 325 mg Tablet 650 mg PO Q4H PRN (Reason: Fever Or Pain) acetaminophen 325 mg Tablet 325 mg PO MOWEFR Rx Instructions: take 30 min prior to physical therapy polyethylene glycol 3350 17 gram Powder In Packet 17 g PO DAILY PRN (Reason: Constipation) guaifenesin [Radha-Tussin] 100 mg/5 mL Liquid 200 mg PO Q6H PRN (Reason: Cough) ferrous sulfate 325 mg (65 mg iron) Tablet 325 mg PO Q2D docusate sodium 100 mg Capsule 100 mg PO Q12H gabapentin 100 mg capsule 200 mg PO BID loratadine 10 mg Tablet 10 mg PO DAILY cholecalciferol (vitamin D3) 1,250 mcg (50,000 unit) Capsule 1,250 mcg PO QMONTH atorvastatin 20 mg tablet 20 mg PO DAILY omeprazole 20 mg capsule,delayed release(DR/EC) 20 mg PO DAILY Rx Instructions: 30 min before dinner azithromycin 250 mg tablet 250 mg PO DAILY 2 Days Qty: 2 0RF cefuroxime axetil 500 mg tablet 500 mg PO BID 3 Days Qty: 6 0RF furosemide 40 mg tablet 40 mg PO Q OTHER DAY Protocol: Hold for SBP< HOLD for SBP < : 100 sertraline [Zoloft] 50 mg tablet 50 mg PO DAILY gabapentin 300 mg capsule 300 mg PO DAILY (DME) nebulizers Misc See Rx Instructions .Route Rx Instructions: As directed hydralazine 50 mg tablet 50 mg PO TID Rx Instructions: hold for BP less than 130/80 colchicine (gout) 0.6 mg tablet 0.6 mg PO DAILY Rx Instructions: stop date: 01/05/23
[2023-01-25 12:21] LABS: MANUAL DIFF FLAG NO
[2023-01-25 12:23] LABS: Basophils Percent Auto 0.4 % (0-2); Eosinophils Absolute Auto 0.7 X10*3/uL (0.0-0.4); Eosinophils Percent Auto 14.7 % (0-4); Hematocrit 26.7 % (42.0-52.0); Hemoglobin 8.2 g/dl (14.0-18.0); Imm Gran Abs Auto 0.01 X10*3/uL (0.00-0.03); Imm Gran Pct Auto 0.2 % (0.0-0.4); Lymphocytes Absolute Auto 0.9 X10*3/uL (1.2-4.9); Lymphocytes Percent Auto 17.5 % (20-40); Mean Corpuscular HGB Conc 30.7 g/dl (31.0-36.0); Mean Corpuscular Hemoglobin 25.5 pg (27.0-33.0); Mean Corpuscular Volume 82.9 fL (80.0-98.0); Mean Platelet Volume 9.6 fL (9.4-12.4); Monocytes Absolute Auto 0.5 X10*3/uL (0.1-1.2); Monocytes Percent Auto 10.8 % (2-11); Neutrophils Absolute Auto 2.8 x10*3/uL (2.0-8.3); Neutrophils Percent Auto 56.4 % (45-73); Platelet Count 221 X10*3/uL (160-400); Red Blood Count 3.22 X10*6/uL (4.60-5.80); Red Cell Distribution Width 19.9 % (11.0-16.0); White Blood Count 4.9 X10*3/uL (4.8-10.8)
[2023-01-25 12:24] LABS: OBS Int Ctl Valid YES; OBS1 POSITIVE (NEGATIVE)
[2023-01-25 12:31] LABS: Lactic Acid 0.5 mmol/L (0.5-2.0)
[2023-01-25 12:33] LABS: INTERNATIONAL NORM RATIO 1.6 (0.9-1.1); Prothrombin Time 19.3 SEC (11.1-13.3)
[2023-01-25 12:35] LABS: Alanine Aminotransferase 9 U/L (0-40); Albumin Level 3.8 g/dL (3.5-5.0); Alkaline Phosphatase 63 U/L (39-117); Anion Gap 10 (12-20); Aspartate Amino Transferase 17 U/L (5-37); Bilirubin Direct 0.3 mg/dL (0.0-0.5); Bilirubin Total 0.8 mg/dL (0.0-1.0); Blood Urea Nitrogen 23 mg/dL (9-16); Calcium 10.4 mg/dL (8.4-10.2); Carbon Dioxide 30 mmol/L (22-29); Chloride 106 mmol/L (96-108); Creatinine Clr Calc Pharmacy 52.7; Estimated Glomerular Filt Rate > 60; Glucose Random 102 mg/dL (60-115); Lipase 7 U/L (8-78); Magnesium 2.1 mg/dL (1.6-2.6); Potassium 4.3 mmol/L (3.3-5.1); Sodium 142 mmol/L (135-145); Total Protein 7.5 g/dL (6.5-8.0)
[2023-01-25 12:42] LABS: COVID-19 Test Negative (Negative); IDNOW Serial# 08D9AD1C
[2023-01-25 14:42] VITALS: BP 149/71; PULSE 80; RESP 16; O2SAT 95
[2023-01-25 14:46] LABS: Hematocrit 25.9 % (42.0-52.0); Hemoglobin 8.1 g/dl (14.0-18.0); Mean Corpuscular HGB Conc 31.3 g/dl (31.0-36.0); Mean Corpuscular Hemoglobin 25.3 pg (27.0-33.0); Mean Corpuscular Volume 80.9 fL (80.0-98.0); Mean Platelet Volume 9.4 fL (9.4-12.4); Platelet Count 224 X10*3/uL (160-400); Red Cell Distribution Width 19.9 % (11.0-16.0); White Blood Count 5.1 X10*3/uL (4.8-10.8)
== END 2023-01-25 18:41 | disposition skilled nursing facility (03) ==
PROVIDERS: Emergency Provider Emergency Medicine; PCP Internal Medicine
DX: D64.9 Anemia, unspecified (principal); I49.9 Cardiac arrhythmia, unspecified; R05.9 Cough, unspecified; R19.5 Other fecal abnormalities; Z79.899 Other long term (current) drug therapy; Z20.822 Contact with and (suspected) exposure to COVID-19; Z20.828 Contact with and (suspected) exposure to other viral communicable diseases
CPT/HCPCS: 36415; 71045; 80048; 80076; 82272; 83605; 83690; 83735; 85025; 85027; 85610; 86850; 86900; 86901; 87635; 93005; 99284

== ENCOUNTER 2023-02-02 09:02 | Outpatient (AMB) | payer OTHER, SELFPAY ==
--- NOTE | 2023-02-02 09:09 | A.OFFVIS_ITS ---
Intake Vital Signs 02/02/23 09:12 Height 6 ft 3 in BMI Reason not done Patient refused/unable BP 152/78 H Blood Pressure Location Lt brachial Position Sitting Pulse 79 Pulse Source Pulse Oximeter Pulse Oximetry (%) 94 Oxygen Delivery Method Room Air Intake Visit Reasons: Abnormal CT scan Allergies bee pollen [BEE STINGS] Allergy (Severe, Verified 02/02/23 09:13) ANAPHYLAXIS doxycycline [DOXYCYCLINE] Allergy (Unknown, Verified 02/02/23 09:13) ? 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 Apparently the patient had a repeat CT scan of the chest to follow up some pulmonary nodules and other abnormalities was noted to have a 9-10 mm pulmonary nodule in the right hemithorax. Although the smaller pulmonary nodules noted. I did personally review the CT scan demonstrating also some bronchitis and bronchiectatic changes as well as some scarring. The pulmonary nodule in the right hemithorax measured about a cm. I did go back and review with previous CT scans. The CT scan that had back in 2020 it was difficult to assess in view of his significant airspace disease and pleural effusions. Subsequently after that will back to a CT scan from 2019 and the pulmonary nodule measures about 9 mm in size which is slightly smaller. Will go ahead and repeat the CT scan in 6 months. In the meantime the patient does have evidence of bronchiectasis so therefore will request a CPT device with an Acapella valve that he can work for mucus clearance. His major complaint all today is that the fact that he can not sleep. I did review his medications. He is on gabapentin at nighttime. Is not a reasonable to increase the gabapentin to 600 mg at nighttime to make sure that he is getting adequate sleep. Otherwise consider alternative agents. Patient denies any choking when he eats. Denies any significant coughing. In view of the difficulty sleeping though will go ahead and request an overnight oximetry to make sure that he is getting adequate oxygenation at nighttime. 02/02/2023 the patient is here for hospital follow-up visit. The patient has had multiple exacerbations of his breathing. He ended up back in the hospital a week ago. Worsening cough overall. He does have a lot of phlegm in difficult for him to expectorate. We did review his last CT scan of the chest that was done back in December 2022 and we did compared to his CT scan from June 2022. His pulmonary nodules appear to be stable. However, does have significant bronchiectasis and now with a new area of ground-glass or haziness in the upper lungs O. his daughter is with him. She is concerned about his swallowing aspiration risk. He was told that he has pretty poor dentition and he was supposed to have his teeth extracted but never did. She explained to her that yes. Potential micro aspirations can result in his chronic picture. Therefore will start him on azithromycin to help him with promotility effects and anti- inflammatory effects from the bronchiectasis. We were able to do a sputum culture sent for both AFB and also Gram staining culture sent to the laboratory. In the office we did perform a nebulized treatment with Xopenex and hypertonic saline and then we were able to expectorate. I talked to the patient also the daughter that using chest PT with nebulizer therapy and Acapella valve or flutter valve will be helpful in mucus clearance. If the culture shows I a resistant organism that requires a different antibiotic we will decide at that point. In the meantime will start him on azithromycin in order to provide with anti-inflammatory effects and also provide him with promotility Function. Chlorhexidine also be helpful to maintain a sterile mouth and avoid microaspiration with bacteria into the lungs. Explained to the daughter and the patient that and it different circumstances bronchoscopy will be helpful for mucus clearing and also for deep cultures to assess exactly what the potential bacteria organism is that is affecting his lungs. Still this procedures need anesthesia and any anesthesia in his case would be high risk and therefore needs to be careful and avoid risk of procedures the possible. 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 Father No problems noted. Son No problems noted. Son No problems noted. Son No problems noted. Son No problems noted. Daughter No problems noted. Daughter No problems noted. Daughter No problems noted. Social History Household Members: Other Housing: Assisted Living Facility Housing Other:: [facility] Do you presently have visiting nurse or other home services: No Alcohol intake: never Patient Tobacco Use Status: Never used Tobacco Advance Directives Date on File: 03/28/20 service: No Current occupational status: retired Review of Systems Const Denies chills, Reports daytime sleepiness, Reports difficulty sleeping, Denies fatigue, Denies fever(s), Denies frequent falls, Denies poor appetite, Denies snoring, Denies stops breathing during sleep, Denies weakness, Denies weight gain and Denies weight loss Eyes Denies loss of vision ENT Denies dizziness and Denies hearing loss Card Denies chest pain, Denies claudication, Denies leg edema, Denies lightheadedness, Denies palpitations, Denies dyspnea, Denies dyspnea on exertion, Denies orthopnea and Denies other (Loss of consciousness) Resp Reports chest congestion, Reports cough, Reports excessive phlegm production, Denies dyspnea, Denies dyspnea on exertion, Denies snoring and Denies wheezing GI Denies abdominal pain, Denies hematochezia, Denies change in bowel habits, Denies nausea and Denies vomiting Denies dysuria and Denies urinary frequency Musc Denies arthralgias, Denies muscle weakness and Denies numbness Skin/Breast Denies nail changes and Denies rash Neuro Denies Abnormal speech present, Denies dizziness, Denies frequent falls, Denies loss of vision, Denies memory loss, Denies numbness and Denies weakness Psych Denies depression and Denies memory loss Endo Denies fatigue and Denies palpitations Miguel/Lymph Denies easy bruising and Denies other (Anemia) Aller/Immun Denies wheezing Physical Exam Vital Signs: Last Vital Signs Pulse 79 02/02/23 09:12 BP 152/78 H 02/02/23 09:12 Pulse Ox 94 02/02/23 09:12 Oxygen Delivery Method Room Air 02/02/23 09:12 Const General: comfortable and no acute distress Orientation/consciousness: patient oriented x3 HEENT Other: Unremarkable Head: Yes normal to inspection and Yes normocephalic Neck Neck: Yes normal visual inspection Chest Chest palpation & inspection: normal inspection of the chest Resp Other: Few scattered inspiratory crackles. Effort & Inspection: normal respiratory effort Auscultation: rhonchi and diminished lung sounds Cardio Rate: regular rate Heart sounds: S1 normal heart sound present and S2 normal heart sound present GI Palpation (GI): Soft to palpation Back/Spine/Pelvis Other: unremarkable Skin General skin exam: no rashes or lesions noted Neuro General: patient oriented x3 Speech: No Abnormal speech present Extrem Other: Right below-knee amputation. General: Yes no clubbing, cyanosis or edema Right lower extremity: knee (amputation) Psych Mental Status: mental status grossly normal Office Procedures Nebulizer Treatment Nebulizer Treatment [id number]/MDI RX initial, or Nebulizer Subsequent Treatment Office Meds levalbuterol HCl Performing Provider: Ervin Camacho MD Administered by: Anastasia Gross LPN on 02/02/23 10:01 Dose Route Admin Location Lot Number Expiration Date [place] [employer] Instrument [employer] 1.25 mg inhalation [id number] 12/06/23 05399-038-32 sodium chloride Performing Provider: Ervin Camacho MD Administered by: Anastasia Gross LPN on 02/02/23 10:01 Dose Route Admin Location Lot Number Expiration Date NDC [employer] Instrument Rep[employer]r 3 mL inhalation [id number] 11/06/23 Results Reviewed Results Reviewed: personally reviewed CTA with bronchiectasis and pulmonary nodules Assessment & Plan Assessment & Plan (1) Pulmonary nodule: Code(s): R91.1 - Solitary pulmonary nodule (2) COPD (chronic obstructive pulmonary disease): Code(s): J44.9 - Chronic obstructive pulmonary disease, unspecified (3) Chronic heart failure with preserved ejection fraction (HFpEF): Code(s): I50.32 - Chronic diastolic (congestive) heart failure (4) Bronchiectasis: Code(s): J47.9 - Bronchiectasis, uncomplicated Plan start nebs xopenex followed by 3% hypertonic saline CPT with acapella valve after nebs BID start Azithromycin MWF. should have an EKG once on the macrolide start chloehexadine MW daily sputum cx and AFB F/U 2 months Orders: Orders Sputum Cult + Gram stain Today J47.9 - Bronchiectasis, uncomplicated Acid-fast Culture + Smear Today J47.9 - Bronchiectasis, uncomplicated AMB Nebulizer Treatment Today J44.9 - Chronic obstructive pulmonary disease, unspecified Medications: Discontinued omeprazole 20 mg PO DAILY@0630 30 caps 0RF atorvastatin 20 mg PO QAM 90 tabs 3RF Coding Level of Care Code New Pt Level 5 (94605) Diagnoses Pulmonary nodule R91.1 COPD (chronic obstructive pulmonary disease) J44.9 Chronic heart failure with preserved ejection fraction (HFpEF) I50.32 Bronchiectasis J47.9 CPT Codes Nebulizer Treatment - Nebulizer Treatment, initial or subsequent: 61584- Nebulizer/MDI RX initial, or Nebulizer Subsequent Treatment ([id number]) Time Spent (min) 60
[2023-02-02 09:12] VITALS: BP 152/78; PULSE 79; O2SAT 94
== END 2023-02-02 10:01 | disposition home or self-care (01) ==
PROVIDERS: PCP Internal Medicine; Visit Provider Hospitalist
DX: R91.1 Solitary pulmonary nodule (principal); J44.9 Chronic obstructive pulmonary disease, unspecified; I50.32 Chronic diastolic (congestive) heart failure
CPT/HCPCS: 99215

== ENCOUNTER → 2023-02-02 09:02 | Outpatient (BNVA) | payer OTHER, SELFPAY | PROVIDERS: Visit Provider Hospitalist | DX: R91.1 Solitary pulmonary nodule (principal); J47.9 Bronchiectasis, uncomplicated; I50.32 Chronic diastolic (congestive) heart failure | CPT/HCPCS: 94640; 99212 ==

== ENCOUNTER 2023-02-02 09:55 | Outpatient (REF) | payer OTHER, SELFPAY | END 2023-02-02 09:56 | disposition home or self-care (01) | LOC: HO.LNP 09:55 | PROVIDERS: Visit Provider Hospitalist | DX: R91.1 Solitary pulmonary nodule (principal); J47.9 Bronchiectasis, uncomplicated | CPT/HCPCS: 87116; 87205; 87206 ==

== ENCOUNTER 2023-03-30 10:16 | Outpatient (AMB) | payer OTHER, SELFPAY ==
--- NOTE | 2023-03-30 10:34 | MHC.OFFVIS ---
Intake Vital Signs 03/30/23 10:36 Height 6 ft Weight 175 lb BMI 23.7 Pulse 66 Pulse Source Pulse Oximeter Pulse Oximetry (%) 94 Oxygen Delivery Method Room Air Intake Visit Reasons: Abnormal CT scan Matrix Repairer Required: No Allergies bee pollen [BEE STINGS] Allergy (Severe, Verified 03/30/23 10:38) ANAPHYLAXIS doxycycline [DOXYCYCLINE] Allergy (Unknown, Verified 03/30/23 10:38) ? 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 Apparently the patient had a repeat CT scan of the chest to follow up some pulmonary nodules and other abnormalities was noted to have a 9-10 mm pulmonary nodule in the right hemithorax. Although the smaller pulmonary nodules noted. I did personally review the CT scan demonstrating also some bronchitis and bronchiectatic changes as well as some scarring. The pulmonary nodule in the right hemithorax measured about a cm. I did go back and review with previous CT scans. The CT scan that had back in 2020 it was difficult to assess in view of his significant airspace disease and pleural effusions. Subsequently after that will back to a CT scan from 2019 and the pulmonary nodule measures about 9 mm in size which is slightly smaller. Will go ahead and repeat the CT scan in 6 months. In the meantime the patient does have evidence of bronchiectasis so therefore will request a CPT device with an Acapella valve that he can work for mucus clearance. His major complaint all today is that the fact that he can not sleep. I did review his medications. He is on gabapentin at nighttime. Is not a reasonable to increase the gabapentin to 600 mg at nighttime to make sure that he is getting adequate sleep. Otherwise consider alternative agents. Patient denies any choking when he eats. Denies any significant coughing. In view of the difficulty sleeping though will go ahead and request an overnight oximetry to make sure that he is getting adequate oxygenation at nighttime. 02/02/2023 the patient is here for hospital follow-up visit. The patient has had multiple exacerbations of his breathing. He ended up back in the hospital a week ago. Worsening cough overall. He does have a lot of phlegm in difficult for him to expectorate. We did review his last CT scan of the chest that was done back in December 2022 and we did compared to his CT scan from June 2022. His pulmonary nodules appear to be stable. However, does have significant bronchiectasis and now with a new area of ground-glass or haziness in the upper lungs O. his daughter is with him. She is concerned about his swallowing aspiration risk. He was told that he has pretty poor dentition and he was supposed to have his teeth extracted but never did. She explained to her that yes. Potential micro aspirations can result in his chronic picture. Therefore will start him on azithromycin to help him with promotility effects and anti-inflammatory effects from the bronchiectasis. We were able to do a sputum culture sent for both AFB and also Gram staining culture sent to the laboratory. In the office we did perform a nebulized treatment with Xopenex and hypertonic saline and then we were able to expectorate. I talked to the patient also the daughter that using chest PT with nebulizer therapy and Acapella valve or flutter valve will be helpful in mucus clearance. If the culture shows I a resistant organism that requires a different antibiotic we will decide at that point. In the meantime will start him on azithromycin in order to provide with anti-inflammatory effects and also provide him with promotility Function. Chlorhexidine also be helpful to maintain a sterile mouth and avoid microaspiration with bacteria into the lungs. Explained to the daughter and the patient that and it different circumstances bronchoscopy will be helpful for mucus clearing and also for deep cultures to assess exactly what the potential bacteria organism is that is affecting his lungs. Still this procedures need anesthesia and any anesthesia in his case would be high risk and therefore needs to be careful and avoid risk of procedures the possible. 03/30/2023 the patient is here for a pulmonary follow-up visit. He is here with his daughter. Overall he is doing better. Denies any significant coughing or chest congestion. He is continue the therapy as prescribed. Will try to deescalate therapy at this time. Does complaint of allergy symptoms. Having itchy eyes. He is currently on Claritin. His daughter will get him some [id number] allergy drops at this time. He has been on the nebulized therapy with the hypertonic saline for bronchopulmonary hygiene. Also tolerating the chlorhexidine. He is going to have some dental procedures coming up soon. At this point will go ahead and stop the azithromycin since he seems to be doing okay. However, if his symptoms worsen upon discontinuation of the medication then we can always consider restarting the medication. If he does continue the azithromycin he will need serial EKGs to make sure that his QT interval stay within normal limits. [facility] Medical History (Updated 03/30/23 @ 10:40 by Ervin Camacho MD) Bronchiectasis Insomnia Pulmonary nodule COPD (chronic obstructive pulmonary disease) Chronic heart failure with preserved ejection fraction (HFpEF) Non-pressure chronic ulcer of other part of left foot with necrosis of bone Pressure ulcer of left heel, stage 3 Pleural effusion Acute and chronic respiratory failure with hypercapnia CHF (congestive heart failure) BARBARA (obstructive sleep apnea) Pulmonary hypertension Persistent atrial fibrillation Acute on chronic diastolic (congestive) heart failure COVID-19 CHF exacerbation 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 Father No problems noted. Son No problems noted. Son No problems noted. Son No problems noted. Son No problems noted. Daughter No problems noted. Daughter No problems noted. Daughter No problems noted. Social History Household Members: Other Housing: Assisted Living Facility [facility] Other[facility] Do you presently have visiting nurse or other home services: No Alcohol intake: never Patient Tobacco Use Status: Never used Tobacco Advance Directives Date on File: 03/28/20 service: No Current occupational status: retired Review of Systems Const Denies chills, Reports daytime sleepiness, Reports difficulty sleeping, Denies fatigue, Denies fever(s), Denies frequent falls, Denies poor appetite, Denies snoring, Denies stops breathing during sleep, Denies weakness, Denies weight gain and Denies weight loss Eyes Reports itchy eyes and Denies loss of vision ENT Denies dizziness and Denies hearing loss Card Denies chest pain, Denies claudication, Denies leg edema, Denies lightheadedness, Denies palpitations, Denies dyspnea, Denies dyspnea on exertion, Denies orthopnea and Denies other (Loss of consciousness) Resp Denies chest congestion, Reports cough, Denies excessive phlegm production, Denies dyspnea, Denies dyspnea on exertion, Denies snoring and Denies wheezing GI Denies abdominal pain, Denies hematochezia, Denies change in bowel habits, Denies nausea and Denies vomiting Denies dysuria and Denies urinary frequency Musc Denies arthralgias, Denies muscle weakness and Denies numbness Skin/Breast Denies nail changes and Denies rash Neuro Denies Abnormal speech present, Denies dizziness, Denies frequent falls, Denies loss of vision, Denies memory loss, Denies numbness and Denies weakness Psych Denies depression and Denies memory loss Endo Denies fatigue and Denies palpitations Miguel/Lymph Denies easy bruising and Denies other (Anemia) Aller/Immun Reports itchy eyes and Denies wheezing Physical Exam Vital Signs: Last Vital Signs Pulse 66 03/30/23 10:36 Pulse Ox 94 03/30/23 10:36 Oxygen Delivery Method Room Air 03/30/23 10:36 BMI result Body Mass Index 23.7 Const General: comfortable and no acute distress Orientation/consciousness: patient oriented x3 HEENT Other: Unremarkable Head: Yes normal to inspection and Yes normocephalic Neck Neck: Yes normal visual inspection Chest Chest palpation & inspection: normal inspection of the chest Resp Other: Few scattered inspiratory crackles. Effort & Inspection: normal respiratory effort Auscultation: no rhonchi and diminished lung sounds Cardio Rate: regular rate Heart sounds: S1 normal heart sound present and S2 normal heart sound present GI Palpation (GI): Soft to palpation Back/Spine/Pelvis Other: unremarkable Skin General skin exam: no rashes or lesions noted Neuro General: patient oriented x3 Speech: No Abnormal speech present Extrem Other: Right below-knee amputation. General: Yes no clubbing, cyanosis or edema Right lower extremity: knee (amputation) Psych Mental Status: mental status grossly normal Assessment & Plan Assessment & Plan (1) Pulmonary nodule: Code(s): R91.1 - Solitary pulmonary nodule (2) COPD (chronic obstructive pulmonary disease): Code(s): J44.9 - Chronic obstructive pulmonary disease, unspecified Qualifiers: COPD type: chronic bronchitis Chronic bronchitis type: mixed simple and mucopurulent Qualified Code(s): J41.8 - Mixed simple and mucopurulent chronic bronchitis (3) Chronic heart failure with preserved ejection fraction (HFpEF): Code(s): I50.32 - Chronic diastolic (congestive) heart failure (4) Bronchiectasis: Code(s): J47.9 - Bronchiectasis, uncomplicated Qualifiers: Bronchiectasis type: uncomplicated Qualified Code(s): J47.9 - Bronchiectasis, uncomplicated Plan Continue nebs xopenex followed by 3% hypertonic saline CPT with acapella valve after nebs BID stop Azithromycin MWF. Should call the office if worsening symptoms to consider restarting. should have an EKG once on the macrolide Continue Chlorhexadine MW CT chest in 6 months F/U 6 months Orders: Orders CT chest wo IV con 6 Months R91.1 - Solitary pulmonary nodule Coding Level of Care Code Est Pt Level 4 (35210) Diagnoses Pulmonary nodule R91.1 Mixed simple and mucopurulent chronic bronchitis J41.8 COPD type: chronic bronchitis Chronic bronchitis type: mixed simple and mucopurulent Chronic heart failure with preserved ejection fraction (HFpEF) I50.32 Bronchiectasis without complication J47.9 Bronchiectasis type: uncomplicated Time Spent (min) 17
[2023-03-30 10:36] VITALS: PULSE 66; O2SAT 94; BMI 23.7
== END 2023-03-30 10:52 | disposition home or self-care (01) ==
PROVIDERS: PCP Internal Medicine; Visit Provider Hospitalist
DX: R91.1 Solitary pulmonary nodule (principal); J41.8 Mixed simple and mucopurulent chronic bronchitis; I50.32 Chronic diastolic (congestive) heart failure; J47.9 Bronchiectasis, uncomplicated
CPT/HCPCS: 99214

== ENCOUNTER → 2023-03-30 10:16 | Outpatient (BNVA) | payer OTHER, SELFPAY | PROVIDERS: PCP Internal Medicine; Visit Provider Hospitalist | DX: R91.1 Solitary pulmonary nodule (principal); J47.9 Bronchiectasis, uncomplicated; J41.8 Mixed simple and mucopurulent chronic bronchitis; I50.32 Chronic diastolic (congestive) heart failure | CPT/HCPCS: 99212 ==

== ENCOUNTER 2023-04-22 00:57 | Emergency (ER) | payer OTHER, SELFPAY ==
[2023-04-22] VITALS (8 sets, daily range): BP systolic 114–209; BP diastolic 61–100; PULSE 78–93; RESP 17–20; TEMP 36.7; O2SAT 94–97; BMI 24.2
--- NOTE | 2023-04-22 | ECG_ITS ---
Test Reason : A-FIB Blood Pressure : / mmHG Vent. Rate : 085 BPM Atrial Rate : 000 BPM P-R Int : 000 ms QRS Dur : 104 ms QT Int : 384 ms P-R-T Axes : 000 066 048 degrees QTc Int : 456 ms Atrial fibrillation RSR' or QR pattern in V1 suggests right ventricular conduction delay Abnormal ECG When compared with ECG of 25-JAN-2023 12:21, Heart rate has increased Referred By: Generic ED Physician Electronically Signed By:ANTONIO NOYOLA MD
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
[2023-04-22 01:31] LABS: Basophils Percent Auto 0.6 % (0-2); Eosinophils Absolute Auto 0.6 X10*3/uL (0.0-0.4); Eosinophils Percent Auto 9.9 % (0-4); Hematocrit 28.7 % (42.0-52.0); Hemoglobin 8.9 g/dl (14.0-18.0); Imm Gran Abs Auto 0.01 X10*3/uL (0.00-0.03); Imm Gran Pct Auto 0.2 % (0.0-0.4); Lymphocytes Absolute Auto 1.4 X10*3/uL (1.2-4.9); Lymphocytes Percent Auto 21.9 % (20-40); MANUAL DIFF FLAG NO; Mean Corpuscular Hemoglobin 26.7 pg (27.0-33.0); Mean Corpuscular Volume 86.2 fL (80.0-98.0); Monocytes Absolute Auto 0.7 X10*3/uL (0.1-1.2); Monocytes Percent Auto 11.3 % (2-11); Neutrophils Absolute Auto 3.5 x10*3/uL (2.0-8.3); Neutrophils Percent Auto 56.1 % (45-73); Platelet Count 207 X10*3/uL (160-400); Red Blood Count 3.33 X10*6/uL (4.60-5.80); Red Cell Distribution Width 16.6 % (11.0-16.0); White Blood Count 6.3 X10*3/uL (4.8-10.8)
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
[2023-04-22 01:43] LABS: Appearance Urine Clear; Color Urine Yellow; Glucose Urine UA Negative (Negative); Leukocyte Esterase Urine Moderate (2+) (Negative); Nitrite Urine Negative (Negative); PH 6.5 (5.0-9.0); UMIC TRIGGER UACC YES; Urine Blood Negative (Negative); Urine Ketones Negative (Negative); Urine Protein 30 (1+) mg/dL (Neg-Trace)
--- OUTSIDE RECORDS SUMMARY | 2023-04-22 01:45 | XMS_ITS | Continuity of Care Document ---
Author Name Unknown Organization [facility] ter Address [address] [place] [id number] Care Team Providers Care Risk Investigator Name Role Phone Elder , Blanka Zapien Primary Care Physicia n Encounter [facility] Date(s): 10/16/22 - 10/19/[address] [address] Discharge Disposition: A-Transfer SNF Attending Physician: Brooklyn GALEAS, Yessenia Blanco Admitting Physician: Juan Luis Brian MD Referring Physician: Not on Staff, Referring MD Allergies, Adverse Reactions, Alerts Substance Reaction Severity Status doxycycline Active Bee Stings Sardines canned in brine Act frantz Other Food Allergy Sardines canned in brine Active Immunizations Given and Recorded Vaccine Date Status Refusal Reason SARS-CoV-2 (COVID-19) mRNA BNT-162b2 vac 10/31/21 Recorded SARS-CoV-2 (COVID-19) mRNA-1273 vaccine 03/28/21 R ecorded SARS-CoV-2 (COVID-19) mRNA-1273 vaccine 08/29/20 R ecorded SARS-CoV-2 (COVID-19) mRNA-1273 vaccine 07/19/20 R ecorded influenza virus vaccine, inactivated 03/19/21 Candido rded influenza virus vaccine, inactivated 02/25/19 Candido rded influenza virus vaccine, inactivated 04/02/18 Candido rded influenza virus vaccine, inactivated 03/27/17 Candido rded influenza virus vaccine, inactivated 03/21/16 Candido rded influenza virus vaccine, inactivated 03/03/14 Candido rded influenza virus vaccine, inactivated 03/19/11 Candido rded pneumococcal 23-valent vaccine 01/07/16 Recorded pneumococcal 23-valent vaccine 07/28/13 Recorded pneumococcal 23-valent vaccine 04/17/00 Recorded pneumococcal 13-valent vaccine 06/22/15 Recorded Zoster Vaccine Live 10/05/14 Recorded tetanus/diphtheria/pertussis, acel(Tdap) 08/05/11 Recorded tetanus-diphtheria toxoids (Td) 03/25/02 Recorded Medications acetaminophen 325 mg oral tablet 650 mg, 2, tablet, By Mouth, Every 6 hours, PRN, Maintenance, as needed for fever/paiin, 02/04/21 15:16:00 EDT, Partial fill upon patient request if the prescription is for a schedule II opioid drug. Start Date: 02/04/21 Status: Ordered amLODIPine 10 mg oral tablet 10 mg, Tablet, By Mouth, 10/19/22 9:00:00 EDT Start Date: 10/19/22 Stop Date: 10/19/22 Status: Completed amLODIPine 10 mg oral tablet 10 mg, 1, tablet, By Mouth, Daily, PRN, hold if BP < 130/80, # 30 tablet, Refills 0, Tot. Refills 0, Maintenance, Blood Pressure, 10/19/22 12:40:00 EDT, Do Not Route, Partial fill upon patient request if the prescription is for a schedule II opioid drug. Start Date: 10/19/22 Stop Date: 11/18/22 Status: Ordered atorvastatin 20 mg oral tablet 1 tablet = 20 mg, By Mouth, Daily, Maintenance, 02/04/21 15:20:00 EDT, Tablet, Partial fill upon patient request if the prescription is for a schedule II opioid drug. Start Date: 02/04/21 Status: Ordered colchicine 0.6 mg oral tablet 0.6 mg, 1, tablet, By Mouth, Daily, started 10/07/22, Refills 0, Maintenance, 10/06/22 16:28:00 EDT, Partial fill upon patient request if the prescription is for a schedule II opioid drug. Start Date: 10/06/22 Stop Date: 01/04/23 Status: Ordered Docusate/Senna Tablet 1 tablet, By Mouth, 2 times a day, PRN Constipation, 0 Refills, Maintenance, 10/19/22 12:40:00 EDT,Tablet, Partial fill upon patient request if the prescription is for a schedule II opioid drug. Start Date: 10/19/22 Status: Ordered Eliquis 5 mg oral tablet 1 tablet = 5 mg, By Mouth, 2 times a day, Maintenance, 02/04/21 15:23:00 EDT, Tablet, Partial fill upon patient request if the prescription is for a schedule II opioid drug. Start Date: 02/04/21 Status: Ordered ferrous sulfate 325 mg oral tablet 1 tablet = 325 mg, By Mouth, Every 48 hours, 0 Refills, Maintenance, 04/21/15 6:12:04 EST Start Date: 04/21/15 Status: Ordered gabapentin 100 mg oral capsule 200 mg, Capsule, By Mouth, 10/19/22 9:00:00 EDT Start Date: 10/19/22 Stop Date: 10/19/22 Status: Completed gabapentin 100 mg oral capsule 200 mg, 2, capsule, By Mouth, 2 times a day, Refills 0, Maintenance, 10/05/22 11:01:00 EDT, Partialfill upon patient request if the prescription is for a schedule II opioid drug. Start Date: 10/05/22 Status: Ordered gabapentin 100 mg oral capsule 200 mg, Capsule, By Mouth, 10/18/22 21:00:00 EDT Start Date: 10/18/22 Stop Date: 10/18/22 Status: Completed gabapentin 300 mg oral capsule 300 mg, 1, capsule, By Mouth, Daily at bedtime, Refills 0, Maintenance, 02/09/21 13:15:00 EDT, Partial fill upon patient request if the prescription is for a schedule II opioid drug. Start Date: 02/09/21 Status: Ordered gabapentin 300 mg oral capsule 300 mg, Capsule, By Mouth, 10/18/22 21:00:00 EDT Start Date: 10/18/22 Stop Date: 10/18/22 Status: Completed Radha-Tussin Expectorant 100 mg/5 mL oral liquid 10 mL = 200 mg, By Mouth, Every 6 hours, PRN Cough, Maintenance, 10/14/22 16:04:00 EDT, Partial fill upon patient request if the prescription is for a schedule II opioid drug. Start Date: 10/14/22 Status: Ordered hydrALAZINE 25 mg oral tablet 50 mg, Tablet, By Mouth, Hold for: if SBP < 120, 10/19/22 9:00:00 EDT Start Date: 10/19/22 Stop Date: 10/19/22 Status: Completed hydrALAZINE 50 mg oral tablet 1 tablet = 50 mg, By Mouth, 3 times a day, PRN Blood Pressure, hold if BP < 130/80, # 90 tablet,0 Refills, Maintenance, 10/19/22 12:36:00 EDT, Tablet, Partial fill upon patient request if the prescription is for a schedule II opioid drug. Start Date: 10/19/22 Stop Date: 11/18/22 Status: Ordered Lasix 40 mg oral tablet 40 mg, 1, tablet, By Mouth, Daily, hold if SBP < 100, # 30 tablet, Refills 0, Tot. Refills 0, Maintenance, 10/19/22 12:41:00 EDT, Do Not Route, Partial fill upon patient request if the prescription is for a schedule II opioid drug. Start Date: 10/19/22 Stop Date: 11/18/22 Status: Ordered melatonin 5 mg oral tablet 1 tablet = 5 mg, By Mouth, Daily at bedtime, Maintenance, 02/04/21 15:18:00 EDT, Tablet, Partial fill upon patient request if the prescription is for a schedule II opioid drug. Start Date: 02/04/21 Status: Ordered metFORMIN 500 mg oral tablet 1 tablet = 500 mg, By Mouth, Daily Start Date: 02/04/21 Status: Ordered MiraLax Powder 1 pack/packet = 17 Gm, By Mouth, Daily, PRN Constipation, 0 Refills, Maintenance, 10/19/22 12:40:00EDT, Powder, Partial fill upon patient request if the prescription is for a schedule II opioid drug. Start Date: 10/19/22 Status: Ordered Narcan 4 mg/0.1 mL nasal spray = 4 mg, Nares, Both, Once, PRN as needed, 0 Refills, Maintenance, 10/05/22 11:06:00 EDT, Partial fill upon patient request if the prescription is for a schedule II opioid drug. Start Date: 10/05/22 Status: Ordered Narcan 4 mg/0.1 mL nasal spray = 4 mg, Nares, Both, Once, PRN as needed, from first dose, 0 Refills, Maintenance, 10/05/22 11:09:00 EDT, Partial fill upon patient request if the prescription is for a schedule II opioid drug. Start Date: 10/05/22 Status: Ordered omeprazole 20 mg oral enteric coated capsule 1 capsule = 20 mg, By Mouth, Daily in AM, Maintenance, 02/04/21 15:13:00 EDT, EC Capsule, Partial fill upon patient request if the prescription is for a schedule II opioid drug. Start Date: 02/04/21 Status: Ordered sertraline 50 mg oral tablet 1 tablet = 50 mg, By Mouth, Daily, 0 Refills, Maintenance, 10/05/22 11:14:00 EDT, Tablet, Partial fill upon patient request if the prescription is for a schedule II opioid drug. Start Date: 10/05/22 Status: Ordered tamsulosin 0.4 mg oral capsule 1 capsule = 0.4 mg, By Mouth, Daily, 0 Refills, Maintenance, 04/21/15 6:11:08 EST Start Date: 04/21/15 Status: Ordered Vitamin D3 50,000 intl units oral capsule 1 capsule = 1,250 mcg, By Mouth, Every 28 days, On the 9th of every month, 0 Refills, Maintenance, 10/14/22 7:00:00 EDT, Capsule, Partial fill upon patient request if the prescription is for a schedule II opioid drug. Start Date: 10/14/22 Status: Ordered Problem List Condition Confirmation Course Effective Dates Status Health St atus Informant AF (atrial fibrillation) 1 Confirmed Active COPD (chronic obstructive pulmonary disease) Confirmed Active Chronic kidney disease (CKD) Confirmed Active Cardiac dysrhythmia Confirmed Active Cancer of prostate Confirmed Active Major depressive disorder, recurrent episode with anxious distress Confirmed Active 1not on anticoag d/t risk of falls Vital Signs Most recent to oldest [Reference Range]: 1 2 3 Oxygen Saturation [94-100 %] 93 % *L* (10/18/22 8:00 PM) 92 % *L* (10/18/22 2:00 PM) 91 % *L* (10/18/22 7:00 AM) Pulse Rate [55-90 bpm] 86 bpm (10/18/22 8:00 PM) 84 bpm (10/18/22 2:00 PM) 76 bpm (10/18/22 7:00 AM) Blood Pressure [90-138/55-84 mm Hg] 185/95mm Hg *H* (10/19/22 9:40 AM) 185/95mm Hg *H* (10/19/22 9:40 AM) 108/50mm Hg (10/18/22 8:00 PM) Respiratory Rate [16-30 br/min] 20 br/min (10/19/22 9:40 AM) 16 br/min (10/18/22 8:56 PM) 16 br/min (10/18/22 8:56 PM) Temperature [96.8-100.4 DegF] 97.4 DegF (10/18/22 8:00 PM) 97.6 DegF (10/18/22 2:00 PM) 97.3 DegF (10/18/22 7:00 AM) Mode of Delivery (Oxygen) Room air (10/18/22 8:00 PM) Room air (10/18/22 2:00 PM) Room air (10/18/22 7:00 AM) Blood pressure sites Arm, right (10/18/22 2:00 PM) Arm, right (10/18/22 7:00 AM) Arm, right (10/17/22 7:00 PM) Temperature Route Oral (10/18/22 8:00 PM) Oral (10/18/22 2:00 PM) Oral (10/18/22 7:00 AM) Social History Social History Type Response Smoking Status Never smoker entered on: 04/21/15 Sex Admission evaluation note * Yandel GALEAS, Omid Reyes: PERFORM Event Display: Admission Note Authored Date: Patient: ??ROD CAMACHO ? Age:??87 Years?Sex:??Male?:??1935?? Chief Complaint/Reason for Consultation Referred to the emergency department from [facility] for evaluation of anemia. History of Present Illness 87-year-old man with multiple medical problems including history of CKD, diabetes mellitus, atrial fibrillation (on Eliquis) and COPD who is a [facility] resident was initially seen in the emergency department at [facility] the day prior to this presentation for evaluation of anemia.?? His work-up revealed a chronic normocytic anemia with an H&H of 7.6/26.2 so he was discharged back to the [facility].?? Repeat H&H done at the [facility] today was concerning for a further drop in hemoglobin to 6.6 and patient did mention some black tarry stools a few days ago.?? He was sent back into the emergency room for further evaluation where he denies chest pain, shortness of breath, fever, chills, abdominal pain, diarrhea or constipation. ?? His vitals were remarkable for an elevated blood pressure of 159/71.?? Blood work revealed a normocytic anemia with an H&H of 7.4/25.5 (chronic and at baseline indices), no electrolyte imbalance and no RBCs noted on his urinalysis.?? He was made n.p.o. and referred to medicine on observationfor gastroenterology consult in the morning. Review of Systems As per HPI, remainder of review of systems negative. Objective Vital Signs?? Temperature: 98.3 DegF (10/16/22 20:14:00) Temperature Route: Oral (10/16/22 20:14:00) Pulse Rate: 84 bpm (10/16/22 20:14:00) Respiratory Rate: 18 br/min (10/16/22 20:14:00) Systolic Blood Pressure:??159 mm Hg??High (10/16/22 20:14:00) Diastolic Blood Pressure: 71 mm Hg (10/16/22 20:14:00) Blood pressure sites: Arm, right (10/16/22 20:14:00) Mean Arterial Pressure: 100 mm Hg (10/16/22 20:14:00) Pulse Pressure: 88 mm Hg (10/16/22 20:14:00) Oxygen Saturation: 97 % (10/16/22 20:14:00) Mode of Delivery (Oxygen): Room air (10/16/22 20:14:00) Early Warning Score: 0 (10/16/22 20:15:07) ? Physical Exam GEN: comfortable, no distress, look as stated age HEENT: atraumatic, normocephalic, FROM, EOMI, moist mucous membranes, no palpable lymphadenopathy CVS: first and second heart sounds appreciated, no added murmurs, regular rhythm LUNGS: good air entry bilaterally, no crackles or wheezing appreciated ABDOMEN: soft, non tender, no palpable organomegaly, bowel sounds present and normoactive, non tender, ??no rebound or guarding EXTREMETIES: no weakness, no edema NEURO: alert and oriented x 3, speech clear and coherent, gait not assessed at this time, CN II - XII intact at this time. MOOD: appropriate for clinical encounter. Assessment/Plan Assessment:??87-year-old man with multiple medical problems including history of CKD, diabetes mellitus, atrial fibrillation (on Eliquis) and COPD who is a [facility] resident was initially seen inthe emergency department at [facility] the day prior to this presentation for evaluation of anemia ?? Anemia (D64.9):?? Chronic No clinical signs/evidence of acute blood loss Referred to medicine on observation Follow-up repeat??CBC in the morning Keep n.p.o. except medications Consider gastroenterology consult in the morning ? Diabetes mellitus (E11.9):?? Fair control Hold all oral hypoglycemic agents Continue insulin sliding scale Continue to monitor blood glucose ?? Hypertension Uncontrolled Unsure of patient's medication/dietary adherence Continue home dose of Norvasc ?? Atrial fibrillation Satisfactory ventricular rate controlled at this time Hold Eliquis??until patient seen by gastroenterology ? VTE Prophylaxis:??SCD boots ?VTE Prophylaxis Assessment:??VTE Prophylaxis Ordered ?? Code Status:??Full code ?Order Code Status:??Code Status Ordered ?? Discharge Planning:??Anticipated duration of stay <2 midnights ? Histories Allergies Allergies ?(Active and Proposed Allergies Only) doxycycline? (Severity: Unknown severity, Onset: Unknown) Other Food Allergy? (Severity: Unknown severity, Onset: Unknown) ?Reactions: Sardines canned in brine Bee Stings? (Severity: Unknown severity, Onset: Unknown) ?Reactions: Sardines canned in brine ? Past Medical History/Problem List Active Problems??(6) AF (atrial fibrillation) Cancer of prostate Cardiac dysrhythmia Chronic kidney disease (CKD) COPD (chronic obstructive pulmonary disease) Major depressive disorder, recurrent episode with anxious distress ? Past Surgical History No surgery history documented. ? Social History Tobacco Details:??Never smoker ? Family History No family history recorded. ? Medications Home Medications Acetaminophen (acetaminophen 325 mg oral tablet)?650?Milligram?2?tablet?By Mouth?Every 6 hours?as needed?as needed for fever/paiin Amlodipine (amLODIPine 10 mg oral tablet)?10?Milligram?1?tablet?By Mouth?Daily apixaban (Eliquis 5 mg oral tablet)?1?tab(s)?5?Milligram?By Mouth?2 times a day Atorvastatin (atorvastatin 20 mg oral tablet)?1?tab(s)?20?Milligram?By Mouth?Daily Cholecalciferol (Vitamin D3 50,000 intl units oral capsule)?1?capsule?1,250?Microgram?By Mouth?Every 28 days?On the 9th of every month Colchicine (colchicine 0.6 mg oral tablet)?0.6?Milligram?1?tablet?By Mouth?Daily?for 90?Days?started 10/07/22 Ferrous Sulfate (ferrous sulfate 325 mg oral tablet)?1?tab(s)?325?Milligram?By Mouth?Every 48 hours Furosemide (furosemide 40 mg oral tablet)?40?Milligram?1?tablet?By Mouth?2 times a day Gabapentin (gabapentin 300 mg oral capsule)?300?Milligram?1?capsule?By Mouth?Daily at bedtime Gabapentin (gabapentin 100 mg oral capsule)?200?Milligram?2?capsule?By Mouth?2 times a day Guaifenesin (Radha-Tussin Expectorant 100 mg/5 mL oral liquid)?10?Milliliter?200?Milligram?By Mouth?Every 6 hours?as needed?Cough Melatonin (melatonin 5 mg oral tablet)?1?tab(s)?5?Milligram?By Mouth?Daily at bedtime Metformin (metFORMIN 500 mg oral tablet)?1?tab(s)?500?Milligram?By Mouth?Daily nalOXONE (Narcan 4 mg/0.1 mL nasal spray)?4?Milligram?Nares, Both?Once?as needed?as needed nalOXONE (Narcan 4 mg/0.1 mL nasal spray)?4?Milligram?Nares, Both?Once?as needed?as needed?from first dose Omeprazole (omeprazole 20 mg oral enteric coated capsule)?1?capsule?20?Milligram?By Mouth?Daily in AM Potassium Chloride (Potassium Chloride (Kjq-Pktu-Sfl M20) 20 mEq oral tablet, extended release)?1?tab(s)?20?Milliequivalent?By Mouth?Daily at bedtime Sertraline (sertraline 50 mg oral tablet)?1?tab(s)?50?Milligram?By Mouth?Daily Tamsulosin (tamsulosin 0.4 mg oral capsule)?1?capsule?0.4?Milligram?By Mouth?Daily ? Results Abnormal Labs ?? BLOOD BANK ??Antibody Screen ??Negative () ??10/16/2022 14:50 ??Blood Type ??O Positive () ??10/16/2022 14:50 ? BLOOD COUNT & DIFF ??Abs. Imm Gran ??0.0 k/mm3 () ??10/16/2022 15:08 ??Abs. NRBC ??0.0 k/mm3 () ??10/16/2022 15:08 ??Eos % ??8.3 % (High) ??10/16/2022 15:08 ??Hct ??25.5 % (Low) ??10/16/2022 15:08 ??Hgb ??7.4 Gm/dL (Low) ??10/16/2022 15:08 ??Imm Gran ??0.3 % () ??10/16/2022 15:08 ??MCH ??23.6 pg (Low) ??10/16/2022 15:08 ??MCHC ??29.0 g/dL (Low) ??10/16/2022 15:08 ??Evangeline % ??16.0 % (High) ??10/16/2022 15:08 ??Nucleated RBC (Automated) ??0.0 #/100 WBC'S () ??10/16/2022 15:08 ??RBC ??3.13 m/mm3 (Low) ??10/16/2022 15:08 ??RDW-SD ??49.7 femtoliters (High) ??10/16/2022 15:08 ? CHEM GENERAL ??Bicarbonate Level ??31 mmol/L (High) ??10/16/2022 15:08 ??Estimated GFR Creatinine ??63 ML/MIN/1.73 M2 () ??10/16/2022 15:08 ??Glucose Level ??144 mg/dL (High) ??10/16/2022 15:08 ? UA/URINALYSIS ??Albumin, Urine ??NEGATIVE () ??10/16/2022 18:31 ??Appear/Color, Urine ??LIGHT YELLOW () ??10/16/2022 18:31 ??Bilirubin, Urine ??NEGATIVE () ??10/16/2022 18:31 ??Glucose, Urine ??NEGATIVE () ??10/16/2022 18:31 ??Hemoglobin, Urine ??NEGATIVE () ??10/16/2022 18:31 ??Hold Urine Culture ??Testing available 48 hours from time of collection. () ??10/16/2022 18:31 ??Ketones, Urine ??NEGATIVE () ??10/16/2022 18:31 ??Leukocyte, Urine ??1+ (Abnormal) ??10/16/2022 18:31 ??Mucus ??SLIGHT /LPF () ??10/16/2022 18:31 ??Nitrite, Urine ??NEGATIVE () ??10/16/2022 18:31 ??Urobilinogen ??NORMAL mg/dL () ??10/16/2022 18:31 ??WBC's, Urine ??6 /HPF (High) ??10/16/2022 18:31 ? VIROLOGY ??COVID-19 by RT-PCR ??NEGATIVE () ??10/16/2022 15:00 ? Note: Critical results are displayed in red. ? Hospital Progress note * Eugenia GALEAS, Myron Gutierrez: PERFORM Event Display: Progress Note Hospital Authored Date: Gastroenterology Attending Patient seen and evaluated at the bedside No family member present Feels hungry Denies any abdominal pain Ok to advance diet as tolerated No plans for endoscopy until review of previous evaluation and discussions about goals of care withfamily Will continue to follow-up with you * Antonina Starr: PERFORM, SIGN, VERIFY, SIGN, MODIFY Event Display: Progress Note Hospital Authored Date: Patient: ROD CAMACHO Age: 87 years Sex: Male : 1935 Associated Diagnoses: None Author: Antonina Starr Findings Problem Related to Alteration in Gastrointestinal : Alteration in Gastrointestinal Func/new 10/18/2022 23:00 EDT Alteration in GI status Related to Gastric Hemorrhage Goals & Outcomes, Gastrointestinal Establish a regular pattern of elimination for pt, Nutritional intake is adequate for metabolic needs, Pt will achieve normal/improved fluid balance, Pt will have a bowel movement prior to discharge, Pt will maintain adequate GI function appropriate for pt, Ptwill maintain normal elimination patterns, Pt will resume/maintain adequate hemodynamic status, Pt w ill tolerate age appropriate diet prior to discharge, Tissue perfusion will return to baseline Interventions, Gastrointestinal Assess/monitor abdomen for distention, tenderness, Assess/monitor bowel pattern, bowel sounds, flatus, Assess/monitor number of bowel movements, Assess/monitor pt for nausea, vomiting, Assess if pt tolerating diet, DVT prophylaxis as ordered BH Goals/Interventions, Gastrointestinal Yes Gastrointestinal, Problem Start 10/17/2022 0:34 Reviewed plan with, Gastrointestinal Patient Patient Progression, Gastrointestinal Pt progressing according to plan . Nursing Data Vital Signs : VITAL SIGNS SECTION 10/18/2022 20:00 EDT Temperature 97.4 DegF Temperature Route Oral Pulse Rate 86 bpm Respiratory Rate 21 br/min Systolic Blood Pressure 108 mm Hg Diastolic Blood Pressure 50 mm Hg L Pulse Pressure 58 mm Hg Oxygen Saturation 93 % L Mode of Delivery (Oxygen) Room air . Evaluation (Pt alert, oriented to person and place. VSS. No s/sx of bleeding. Tolerating full liquid diet. Reporting chronic BLE neuropathic pain, given scheduled gabapentin with effect. Frequent safety rounding in place, see [facility] for full assessment. ) * Antonina Starr: PERFORM Event Display: Progress Note Hospital Authored Date: Pt woke up agitated, combative with care. Refusing labs. Able to agree to be cleaned up but still refusing labs. Will try again later. * Myron Bello MD: SIGN Myron Bello MD: SIGN, MODIFY Myron Bello MD: MODIFY, SIGN, VERIFY Event Display: Progress Note Hospital Authored Date: Patient: ROD CAMACHO Age: 87 years Sex: Male : 1935 Associated Diagnoses: None Author: Zafar GAELAS, Teddy Visit Information Patient evaluated at bedside. Patient denies any bleeding since yesterday. Patient's H&H has been stable since admission, decreased likely from baseline. Per patient's daughter, patient has not had any bleeding since admission. She reports that previously patient has undergone colonoscopy at [facility]. Request was faxed over by primary team, currently awaiting records. Plan: ??? No indication for urgent colonoscopy at this time ??? Continue full liquid diet, advance as tolerated ??? Currently awaiting records from [facility] Discussed with Dr. Bello * Eugenia GALEAS, Myron Gutierrez: PERFORM Event Display: Progress Note Hospital Authored Date: I have reviewed the patient's medical history, findings on examination, diagnosis and treatment plan as documented in the fellow note. Case and its management discussed with fellow Note * Valeri Marshall RN: PERFORM Event Display: Discharge/Transfer Note Hospital Authored Date: [id number] Nursing Discharge Note Entered On: 10/19/2022 16:59 EDT Performed On: 10/19/2022 16:59 EDT by Valeri Marshall RN Nursing Discharge Note 2 Discharge Time : 10/19/2022 15:50 EDT Discharge Level of Care at Discharge : long-term facility Discharge Nursing Homes/Rehab Facilities : [facility] Patient Left Unit Via : Ambulance Patient Accompanied Off Unit with : Ambulance/Chair Van Personnel Handover Given to Transport Personnel : Yes DC Instructions Provided & Signed by Pt : Yes Patient Understands D/C Instructions : Yes Patient Instructions Discharge Signed : Yes Did Pt have Specialty Bed or Wound Vac : No Valeri Marshall RN - 10/19/2022 16:59 EDT * Brooklyn GALEAS, Yessenia Blanco: PERFORM Event Display: Discharge/Transfer Note Hospital Authored Date: Patient: ??ROD CAMACHO ? Age:??87 Years?Sex:??Male?:??1935?? Patient Information Discharge Location: B Primary Care Physician: Blanka Chan MD Admit Date/Time: 10/16/22 17:26 Discharge Disposition Discharge Disposition: Long Term Facility/Rehab Discharge Diagnosis Anemia (D64.9) Diabetes mellitus (E11.9) Chronic kidney disease (CKD) (HFpEF) heart failure with preserved ejection fraction (I50.30) ? _ Discharge Medications Acetaminophen (acetaminophen 325 mg oral tablet)?650?Milligram?2?tablet?By Mouth?Every 6 hours?as needed?as needed for fever/paiin Amlodipine (amLODIPine 10 mg oral tablet)?10?Milligram?1?tablet?By Mouth?Daily?as needed?for 30?Days?hold if BP < 130/80?Blood Pressure apixaban (Eliquis 5 mg oral tablet)?1?tab(s)?5?Milligram?By Mouth?2 times a day Atorvastatin (atorvastatin 20 mg oral tablet)?1?tab(s)?20?Milligram?By Mouth?Daily Cholecalciferol (Vitamin D3 50,000 intl units oral capsule)?1?capsule?1,250?Microgram?By Mouth?Every 28 days?On the 9th of every month Colchicine (colchicine 0.6 mg oral tablet)?0.6?Milligram?1?tablet?By Mouth?Daily?for 90?Days?started 10/07/22 Docusate-Senna (Docusate/Senna Tablet)?1?tab(s)?By Mouth?2 times a day?as needed?Constipation Ferrous Sulfate (ferrous sulfate 325 mg oral tablet)?1?tab(s)?325?Milligram?By Mouth?Every 48 hours Furosemide (Lasix 40 mg oral tablet)?40?Milligram?1?tablet?By Mouth?Daily?for 30?Days?hold if SBP < 100 Gabapentin (gabapentin 300 mg oral capsule)?300?Milligram?1?capsule?By Mouth?Daily at bedtime Gabapentin (gabapentin 100 mg oral capsule)?200?Milligram?2?capsule?By Mouth?2 times a day Guaifenesin (Radha-Tussin Expectorant 100 mg/5 mL oral liquid)?10?Milliliter?200?Milligram?By Mouth?Every 6 hours?as needed?Cough hydrALAZINE (hydrALAZINE 50 mg oral tablet)?1?tab(s)?50?Milligram?By Mouth?3 times a day?as needed?Blood Pressure?for 30?Days?hold if BP < 130/80 Melatonin (melatonin 5 mg oral tablet)?1?tab(s)?5?Milligram?By Mouth?Daily at bedtime Metformin (metFORMIN 500 mg oral tablet)?1?tab(s)?500?Milligram?By Mouth?Daily nalOXONE (Narcan 4 mg/0.1 mL nasal spray)?4?Milligram?Nares, Both?Once?as needed?as needed nalOXONE (Narcan 4 mg/0.1 mL nasal spray)?4?Milligram?Nares, Both?Once?as needed?as needed?from first dose Omeprazole (omeprazole 20 mg oral enteric coated capsule)?1?capsule?20?Milligram?By Mouth?Daily in AM Polyethylene Glycol 3350 (MiraLax Powder)?1?pack/packet?17?gram?By Mouth?Daily?as needed?Constipation Sertraline (sertraline 50 mg oral tablet)?1?tab(s)?50?Milligram?By Mouth?Daily Tamsulosin (tamsulosin 0.4 mg oral capsule)?1?capsule?0.4?Milligram?By Mouth?Daily ? Inpatient Medications Medications (22) Active SCHEDULED: (8) Amlodipine 10 mg Tablet (amLODIPine 10 mg oral tablet) ??10 mg, By Mouth, Daily Atorvastatin 20 mg Tablet (atorvastatin 20 mg oral tablet) ??20 mg, By Mouth, Daily Gabapentin 100 mg Capsule (gabapentin 100 mg oral capsule) ??200 mg, By Mouth, 2 times a day Gabapentin 300 mg Capsule (gabapentin 300 mg oral capsule) ??300 mg, By Mouth, Daily at bedtime hydrALAZINE 25 mg Tablet (hydrALAZINE 25 mg oral tablet) ??50 mg, By Mouth, 3 times a day Insulin Lispro 100 units/mL Inj (3mL) (Insulin LISPRO Sliding Scale) ??2-10 units, Subcutaneous Injection, 3 times a day before meals NaCl 0.9% Flush 3ml (NaCL 0.9% Flush) ??3 mL, IV Push, Every 8 hours NaCl 0.9% Flush 3ml (NaCL 0.9% Flush) ??3 mL, IV Push, Every 8 hours CONTINUOUS: (0) PRN: (14) Acetaminophen 325 mg Tablet (Acetaminophen Tablet) ??650 mg, By Mouth, Every 4 hours Dextromethorphan-Guaifenesin 20 mg-200 mg/10 mL Liqu UD (Robitussin DM Liquid) ??10 mL, By Mouth, Every 4 hours Dextrose Inj Syringe (Dextrose 50% Inj Syringe (25Gm)) ??12.5 Gm, IV Push Slowly, Every 20 minutes Dextrose Inj Syringe (Dextrose 50% Inj Syringe (25Gm)) ??25 Gm, IV Push Slowly, Every 15 minutes Glucagon 1 mg Inj (Glucagon Inj) ??1 mg, Intramuscular, Once Glucose 40% Gel (15 Gm) (Glucose Gel) ??15 Gm, By Mouth, Every 20 minutes Glucose 40% Gel (15 Gm) (Glucose Gel) ??30 Gm, By Mouth, Every 20 minutes Insulin Lispro 100 units/mL Inj (3mL) (Insulin LISPRO Scale) ??2-7 units, Subcutaneous Injection, Every 6 hours Melatonin 3 mg Tablet (Melatonin Tablet) ??3 mg, By Mouth, Daily at bedtime NaCl 0.9% Flush 3ml (NaCL 0.9% Flush) ??3 mL, IV Push, Every 8 hours NaCl 0.9% Flush 3ml (NaCL 0.9% Flush) ??3 mL, IV Push, Every 8 hours Polyethylene Glycol 17 Gm Powder (MiraLax Powder) ??17 Gm 1 pack/packet, By Mouth, Daily Senna 8.6 mg / Docusate 50 mg tablet (Docusate/Senna Tablet) ??1 tablet, By Mouth, 2 times a day Simethicone 80 mg Chewable Tablet (Simethicone Tablet) ??80 mg, Chew, 3 times a day ? Medications Started hydralazine 50mg PO TID for uncontrolled hypertension Medications Discontinued none Doses Changed lasix 40mg PO BID >>daily Allergies Allergies ?(Active and Proposed Allergies Only) doxycycline? (Severity: Unknown severity, Onset: Unknown) Other Food Allergy? (Severity: Unknown severity, Onset: Unknown) ?Reactions: Sardines canned in brine Bee Stings? (Severity: Unknown severity, Onset: Unknown) ?Reactions: Sardines canned in brine ? PCP Follow-Up/Heads-Up Please follow up in 2-5 weeks post hospital discharge, patient will need to follow up with his [facility]. Hospital Course see below. Objective Assessment and Plan Patient is a 87-year-old man with?? history of CKD, diabetes mellitus, atrial fibrillation (on Eliquis) and COPD, h/o Ca prostate ??who is a [facility] resident was initially seen in the emergency department at [facility] the day prior to this presentation for evaluation of anemia. His work-up revealed a chronic normocytic anemia with an H&H of 7.6/26.2 so he was discharged back to the [facility] from ER on 10/14/22. Repeat H&H done at the fpc?? was concerning for a further drop in hemoglobin to 6.6 and patient did mention some black tarry stools a few days ago.?? Then he was sentback into the emergency room for further evaluation. Upon checking H&H in ER , stable above 7 g/dl. In concern for GIB, patient is admitted for further evaluation and management. ?? Anemia (D64.9): LILIBETH Chronic in nature, his baseline Hb around 7-??8 g/dl. No clinical signs/evidence of acute blood loss noted since admission. On admission notes it has mentioned that??there is concern for black??tarry stool??at the fpc??and with H&H 6.6 , he was sent to hospital for evaluation. Off note, he is on iron pills atrehab. repeat H&H here has been stable above 7/gl with no significant??acute drop . GI on board and and rectal examination : green stool. No blood. Anemia work-up showed normal B12 and folate??low iron??suggesting LILIBETH.? Per HCP??daughter??Gerald and per daughter??patient was admitted to the [facility]??multipletimes??but she is not sure??he had any endoscopy or colonoscopy there. Request was fax to [facility] on 10/17 and no fax back yet. Received Venofer 250mg IvPB on 10/17 and??another 500mg IVPB on 10/18/22. no bloody BM noted since admission and H&H has been stable. Diet was advanced and tolerating so far. can continue ferrous sulphate 325mg PO every 48 hr at rehab. Patient was on iron pills at rehab and suspect his black color stool could be from iron pill induced as we have not seen any bleeding manifestation here during hospital stay. Discussed with GI team today Dr. Stephen ( fellow ) and Dr. Liirano ( Attending) , since there is no features of GIB noted since admission , with stable H&H above 7g/dl, okay to discharge from GI perspective , recommend to f/u with [facility] on discharge. Recommend to repeat CBC in 3 days at rehab. His baseline Hb is around 7g/dl. ?? Diabetes mellitus (E11.9):?? Fair control Can resume metformin on Discharge. ?? Hypertension BP uncontrolled on admission. Better controlled now after adding on hydralazine on 10/17/22. Continue home dose of Norvasc and hydralazine 3 times a day with holding parameters at rehab. ?? Atrial fibrillation Satisfactory ventricular rate controlled at this time Can resume eliquis on discharge at rehab. ? H/o HFpEF home meds : Lasix 40mg PO bID at rehab. clinically no overt fluid overload noted. Lungs sounds fine crackles at base. on lasix 40mg PO BID at rehab. Resume lasix at 40mg PO daily , doing better, crackles improving today. Recommend to continue lasix 40mg PO daily on discharge. ? I have evaluated patient today with market research senior project manager bedside. Patient was upset this morning??due to hospital stay, ??he stated that he feels fine and there is nothing wrong with his??gastrointestinal tract. He stated that he has not noticed any??bleeding since admission, wants to return back tohis rehab.??BP??on higher side??due to agitation.?? Discussed with GI team today Dr. Stephen ( fellow ) and Dr. Liriano ( Attending) , since there is no features of GIB noted since admission , with stable H&H above 7g/dl, okay to discharge from GI perspective , recommend to f/u with [facility] on discharge. Per daughter, his BP is on higher side whenever he got agitated, it will come down when he is in rehab. Discussed with patient and daughter Gerald , agreed with the discharge plan. Will discharge him back to his rehab. Recommend to continue BP meds at rehab with holding parameters. PMD f/u in 2-5??weeks after discharge as he will require to f/u with??[facility] in 4-6 weeks after discharge. Will need PMD referral for GI f/u. ? Vital Signs?? Temperature: 97.4 DegF (10/18/22 20:00:00) Temperature Route: Oral (10/18/22 20:00:00) Pulse Rate: 86 bpm (10/18/22 20:00:00) Respiratory Rate: 20 br/min (10/19/22 09:40:00) Systolic Blood Pressure:??185 mm Hg??High (10/19/22 09:40:00) Systolic Blood Pressure:??185 mm Hg??High (10/19/22 09:40:00) Diastolic Blood Pressure:??95 mm Hg??High (10/19/22 09:40:00) Diastolic Blood Pressure:??95 mm Hg??High (10/19/22 09:40:00) Blood pressure sites: Arm, right (10/18/22 14:00:00) Pulse Pressure: 58 mm Hg (10/18/22 20:00:00) Oxygen Saturation:??93 %??Low (10/18/22 20:00:00) Mode of Delivery (Oxygen): Room air (10/18/22 20:00:00) Early Warning Score: 4 (10/19/22 09:41:06) ? . Physical Exam General : patient is lying on the bed in no apparent acute distress. Respiration : bilateral air entry (+) , no crackles noted. No rhonchi. CVS: S1+S2. Abd: soft, no tenderness. Midline scar (+) ??Normoactive bowel sounds. Ext: right BKA (+). Trace edema noted on left leg. [facility] GI team Pending Results Add On Lab Order ordered on 10/17/2022 Add On Lab Order ordered on 10/18/2022 BUN ordered on 10/19/2022 Creatinine ordered on 10/19/2022 Electrolytes ordered on 10/19/2022 Hgb + Hct ordered on 10/19/2022 Magnesium Level ordered on 10/19/2022 Phosphorus Level ordered on 10/19/2022 Follow-Up Appointments Added Follow Up ?Time Frame ?Comments Blanka Saucedo Elder?2 to 5 weeks Home Health Face to Face ^[facility] Results Discharge Labs BLOOD BANK Blood Type O Positive ()?? 10/16/2022 14:50 Antibody Screen Negative ()?? 10/16/2022 14:50 ?? BLOOD COUNT & DIFF WBC 4.3 k/mm3 ()?? 10/18/2022 04:15 RBC 3.05 m/mm3 (Low)?? 10/18/2022 04:15 Hgb 7.4 Gm/dL (Low)?? 10/18/2022 04:15 Hct 24.7 % (Low)?? 10/18/2022 04:15 MCV 81.0 femtoliters ()?? 10/18/2022 04:15 MCH 24.3 pg (Low)?? 10/18/2022 04:15 MCHC 30.0 g/dL (Low)?? 10/18/2022 04:15 Platelet Count 251 k/mm3 ()?? 10/18/2022 04:15 RDW-SD 50.1 femtoliters (High)?? 10/18/2022 04:15 MPV 10.5 femtoliters ()?? 10/18/2022 04:15 Nucleated RBC (Automated) 0.0 #/100 WBC'S ()?? 10/18/2022 04:15 Abs. NRBC 0.0 k/mm3 ()?? 10/18/2022 04:15 Abs. Neut 1.9 k/mm3 ()?? 10/16/2022 15:08 Abs. Lymph 1.1 k/mm3 ()?? 10/16/2022 15:08 Abs. Evangeline 0.6 k/mm3 ()?? 10/16/2022 15:08 Abs. Eo 0.3 k/mm3 ()?? 10/16/2022 15:08 Abs. Baso 0.0 k/mm3 ()?? 10/16/2022 15:08 Neut % 47.1 % ()?? 10/16/2022 15:08 Lymph % 27.8 % ()?? 10/16/2022 15:08 Evangeline % 16.0 % (High)?? 10/16/2022 15:08 Eos % 8.3 % (High)?? 10/16/2022 15:08 Baso % 0.5 % ()?? 10/16/2022 15:08 Imm Gran 0.3 % ()?? 10/16/2022 15:08 Abs. Imm Gran 0.0 k/mm3 ()?? 10/16/2022 15:08 ?? CHEM GENERAL Sodium 141 mmol/L ()?? 10/17/2022 10:54 Potassium 3.8 mmol/L ()?? 10/17/2022 10:54 Chloride 103 mmol/L ()?? 10/17/2022 10:54 Bicarbonate Level 30 mmol/L (High)?? 10/17/2022 10:54 Anion Gap 8 ()?? 10/17/2022 10:54 Glucose Level 127 mg/dL (High)?? 10/17/2022 10:54 Glucose, POC 121 mg/dL (High)?? 10/18/2022 19:51 BUN 12 mg/dL ()?? 10/17/2022 10:54 Creatinine-Blood 0.9 mg/dL ()?? 10/17/2022 10:54 Estimated GFR Creatinine 80 ML/MIN/1.73 M2 ()?? 10/17/2022 10:54 Calcium 9.6 mg/dL ()?? 10/17/2022 10:54 Vitamin B12 Level 1018 pg/mL ()?? 10/16/2022 15:08 Folic Acid Level 8.8 ng/mL ()?? 10/16/2022 15:08 Iron Level 18 mcg/dL (Low)?? 10/16/2022 15:08 Iron Binding Capacity, Unsaturated 306 mcg/dL ()?? 10/16/2022 15:08 Iron Binding Capacity, Estimated Total 324 mcg/dL ()?? 10/16/2022 15:08 % Iron Saturation 6 % (Low)?? 10/16/2022 15:08 Ferritin Level 20 ng/mL ()?? 10/16/2022 15:08 ?? COAG APTT 29.6 seconds ()?? 10/16/2022 15:08 ? UA/URINALYSIS Appear/Color, Urine LIGHT YELLOW ()?? 10/16/2022 18:31 Specific [place], Urine 1.008 ()?? 10/16/2022 18:31 pH, Urine 5.5 ()?? 10/16/2022 18:31 Albumin, Urine NEGATIVE ()?? 10/16/2022 18:31 Glucose, Urine NEGATIVE ()?? 10/16/2022 18:31 Ketones, Urine NEGATIVE ()?? 10/16/2022 18:31 Bilirubin, Urine NEGATIVE ()?? 10/16/2022 18:31 Hemoglobin, Urine NEGATIVE ()?? 10/16/2022 18:31 Nitrite, Urine NEGATIVE ()?? 10/16/2022 18:31 Leukocyte, Urine 1+ (Abnormal)?? 10/16/2022 18:31 Urobilinogen NORMAL mg/dL ()?? 10/16/2022 18:31 WBC's, Urine 6 /HPF (High)?? 10/16/2022 18:31 RBC's, Urine NONE SEEN /HPF ()?? 10/16/2022 18:31 Squamous Epith <1 /HPF ()?? 10/16/2022 18:31 Mucus SLIGHT /LPF ()?? 10/16/2022 18:31 Hold Urine Culture Testing available 48 hours from time of collection. ()?? 10/16/2022 18:31 ?? VIROLOGY COVID-19 by RT-PCR NEGATIVE ()?? 10/16/2022 15:00 ?I spent a total of??38 minutes reviewing the chart / medical records, evaluating the patient,?? discussing the treatment plan with patient and family, coordinating care with??GI team ??, and documenting the encounter.?? 38_ minutes spent on discharge * Belen Rouse RN: PERFORM, SIGN, VERIFY Event Display: Case Management Discharge Plan Authored Date: Patient: ROD CAMACHO Age: 87 years Sex: Male : 1935 Associated Diagnoses: None Author: Belen Rouse RN Discharge Plan Case Management Discharge Plan : Case Management Discharge Plan Data 10/19/2022 12:50 EDT Discharge Level of Care at Discharge long-term facility Discharge Nursing Homes/Rehab Facilities [facility] Discharge Transportation Arranged Am Med Response [address] [facility] [phone] Discharge Arranged Transport Date/Time 10/19/2022 15:00 Mode of Transportation Arranged Ambulance Name of Agency #1 [facility] Agency Billing Administrator #1 Intake Service Categories #1 Long Term Service Comments #1 You are scheduled to return to [facility] today at 3pm for continued care. Name of Person Notified of Transfer Dennis Doug, HCP 10/14/2022 18:50 EDT Discharge Level of Care at Discharge Home/Intermediate/Foster Care * Valeri Marshall RN: PERFORM Event Display: Patient Education/Instruction Authored Date: [id number] Inpatient Adult Discharge Instructions [address] [address] Name: ROD CAMACHO : 1935 Visit: 10/16/2022 17:26:00 Current Date: 10/19/2022 15:32 Account: [id number] Inpatient Adult Discharge Instructions We would like to thank you for allowing us to assist you with your healthcare needs. The following includes patient education materials and information regarding your injury/illness. Our entire staffstrives to provide an excellent experience for our patients and their families. PLEASE ENSURE YOU FOLLOW-UP PER THE INSTRUCTIONS BELOW! ?? YOUR OPINION IS IMPORTANT TO US! Please complete the survey you may receive by mail or email. Your feedback will be used to make improvements to the healthcare experiences of our patients and their families. Surveys are administered by [employer] ?? If further treatment with your primary care physician or another doctor is recommended, it is important for you to keep the appointment. Call your primary care physician or return to the Emergency Department immediately if your condition worsens, fails to improve, or new symptoms develop. If you need to find a doctor, you can call [facility] [employer] for a referral at [phone] or toll free at [phone]) or log in to [email or web address].. ?? You can view and manage your care through the patient portal or by using a health care jose of your choosing. [employer] is a website that allows you to securely view your medical information including your hospital discharge summary, office visit summaries, medications and follow-up visits. You can also request appointments, renew medications, and request access to your medical information using a health care jose of your choosing, or just ask a question. You can enroll at [email or web address] or register during your next office visit. You have been discharged from [facility], Patient Care Unit: D6B. If you have any questions regarding these instructions after you leave, please call us and we will be happy to assist you. [facility] Your Care Team Attending Physician Yessenia Barahona MD Discharging Providers Brooklyn GALEAS, Yessenia Blanco Reason for Your Visit Referred to the emergency department from [facility] facility for evaluation of anemia. Your Diagnosis (HFpEF) heart failure with preserved ejection fraction Anemia Anemia Diabetes mellitus Tests Performed Below is a partial list of the tests performed during your hospitalization. You may have had other tests and procedures not included in this list. Please discuss all test results with your provider. Basic Metabolic Panel CBC CBC w/ Differential COVID-19 (Novel Coronavirus), Rapid PCR FERRITIN FOLIC ACID GLUCOSE POC IRON & TIBC PTT Type and Screen Urinalysis w/hold for Urine Culture VITAMIN B12 Primary Care Provider Dustin GALEAS, Blanka Zapien Advance Directive . Discharge Vitals Temperature: 97.4 DegF Pulse Rate: 86 bpm Respiratory Rate: 20 br/min Systolic Blood Pressure:??185 mm Hg??High Systolic Blood Pressure:??185 mm Hg??High Diastolic Blood Pressure:??95 mm Hg??High Diastolic Blood Pressure:??95 mm Hg??High Oxygen Saturation:??93 %??Low Studies Pending All tests and labs ordered during this hospital stay have been completed unless listed below. Please discuss all pending results with your provider listed above in these instructions. ?? Add On Lab Order BUN COVID-19 (Novel Coronavirus), Rapid PCR (COVID-19 (NOVEL CORONAVIRUS), PCR) Creatinine Electrolytes Hgb + Hct (H + H) Magnesium Level Phosphorus Level What to do next Instructions From Your Doctor Discharge Orders You Need to Schedule the Following Appointments Follow Up with??Blanka Chan When??Within 2 to 5 weeks Where: [address] [place] [address] [address]1 [place] [address]- Business (1) Discharge Medications ROD CAMACHO :1935 Visit Date:10/16/2022 Medications: Please continue your medications until treatment is completed or stopped by your provider. Medications not listed below should be discontinued. Discuss any questions related to medications with your provider. What How Much When Instructions Next Dose New Docusate-Senna (Docusate/ Senna Tablet) 1 tab(s) Oral Twice a day as needed for Constipation NEEDED New hydrALAZINE (hydrALAZINE 50 mg oral tablet) 1 tab(s) Oral 3 times a day as needed for Blood Pressure Duration: 30 Days hold if BP < 130/ 80 ?? @2100 New Polyethylene Glycol 3350 (MiraLax Powder) 17 gram Oral Daily as needed for Constipation NEEDED Changed Amlodipine (amLODIPine 10 mg oral tablet) 1 tab(s) Oral Daily as needed for Blood Pressure Duration: 30 Days hold if BP < 130/ 80 ?? NEEDED Changed Furosemide (Lasix 40 mg oral tablet) 1 tab(s) Oral Daily Duration: 30 Days hold if SBP < 100 ?? 10/20/2022 Unchanged Acetaminophen (acetaminophen 325 mg oral tablet) 2 tab(s) Oral Every 6 hours as needed for as needed for fever/paiin NEEDED Unchanged apixaban (Eliquis 5 mg oral tablet) 1 tab(s) Oral Twice a day @2100 Unchanged Atorvastatin (atorvastatin 20 mg oral tablet) 1 tab(s) Oral Daily 10/20/2022 Unchanged Cholecalciferol (Vitamin D3 50,000 intl units oral capsule) 1 capsule Oral Every 28 days On the 9th of every month ?? PER ORDER Unchanged Colchicine (colchicine 0.6 mg oral tablet) 1 tab(s) Oral Daily Duration: 90 Days started ?? 10/20/2022 Unchanged Ferrous Sulfate (ferrous sulfate 325 mg oral tablet) 1 tab(s) Oral Every 48 hours PER ORDER Unchanged Gabapentin (gabapentin 100 mg oral capsule) 2 capsule Oral Twice a day @2100 Unchanged Gabapentin (gabapentin 300 mg oral capsule) 1 capsule Oral Daily at Bedtime @2100 Unchanged Guaifenesin (Radha-Tussin Expectorant 100 mg/ 5 mL oral liquid) 10 Milliliter Oral Every 6 hours as needed for Cough NEEDED Unchanged Melatonin (melatonin 5 mg oral tablet) 1 tab(s) Oral Daily at Bedtime @2100 Unchanged Metformin (metFORMIN 500 mg oral tablet) 1 tab(s) Oral Daily 10/20/2022 Unchanged nalOXONE (Narcan 4 mg/ 0.1 mL nasal spray) 4 Milligram Nares, Both Once as needed for as needed NEEDED Unchanged nalOXONE (Narcan 4 mg/ 0.1 mL nasal spray) 4 Milligram Nares, Both Once as needed for as needed from first dose ?? NEEDED Unchanged Omeprazole (omeprazole 20 mg oral enteric coated capsule) 1 capsule Oral Daily in the morning 10/20/2022 Unchanged Sertraline (sertraline 50 mg oral tablet) 1 tab(s) Oral Daily 10/20/2022 Unchanged Tamsulosin (tamsulosin 0.4 mg oral capsule) 1 capsule Oral Daily 10/20/2022 ?? What How Much When Comments Stop Taking Potassium Chloride (Potassium Chloride (Dbz-Qtyb-Kez M20) 20 mEq oral tablet, extended release) 1 tab(s) Oral Daily at Bedtime Test Results Below is a partial list of the most recent Laboratory test results done prior to this discharge. You may have had other tests and procedures not included in this list. Please discuss all test resultswith your provider. Basic Metabolic Panel (10/17/2022) ???Sodium - 141 mmol/L???Potassium - 3.8 mmol/L???Chloride - 103 mmol/L???Bicarbonate Level - 30 mmol/L???Anion Gap - 8???Glucose Level - 127 mg/dL???BUN - 12 mg/dL???Creatinine-Blood - 0.9 mg/dL???Estimated GFR Creatinine - 80 ML/MIN/1.73 M2???Calcium - 9.6 mg/dL CBC (10/18/2022) ???WBC - 4.3 k/mm3???RBC - 3.05 m/mm3???Hgb - 7.4 Gm/dL???Hct - 24.7 %???MCV - 81.0 femtoliters???MCH - 24.3 pg???MCHC - 30.0 g/dL???Platelet Count - 251 k/mm3???RDW-SD - 50.1 femtoliters???MPV - 10.5 femtoliters???Nucleated RBC (Automated) - 0.0 #/100 WBC'S???Abs. NRBC - 0.0 k/mm3 CBC w/ Differential (10/16/2022) ???WBC - 4.0 k/mm3???RBC - 3.13 m/mm3???Hgb - 7.4 Gm/dL???Hct - 25.5 %???MCV - 81.5 femtoliters???MCH - 23.6 pg???MCHC - 29.0 g/dL???Platelet Count - 230 k/mm3???RDW-SD - 49.7 femtoliters???MPV - 10.2 femtoliters???Nucleated RBC (Automated) - 0.0 #/100 WBC'S???Abs. NRBC - 0.0 k/mm3???Abs. Neut - 1.9 k/mm3???Abs. Lymph - 1.1 k/mm3???Abs. Evangeline - 0.6 k/mm3???Abs. Eo - 0.3 k/mm3???Abs. Baso - 0.0 k/mm3???Neut % - 47.1 %???Lymph % - 27.8 %???Evangeline % - 16.0 %???Eos % - 8.3 %???Baso % - 0.5 %???Imm Gran - 0.3 %???Abs. Imm Gran - 0.0 k/mm3 COVID-19 (Novel Coronavirus), Rapid PCR (10/16/2022) ???COVID-19 by RT-PCR - NEGATIVE FERRITIN (10/16/2022) ???Ferritin Level - 20 ng/mL FOLIC ACID (10/16/2022) ???Folic Acid Level - 8.8 ng/mL GLUCOSE POC (10/19/2022) ???Glucose, POC - 112 mg/dL IRON & TIBC (10/16/2022) ???Iron Level - 18 mcg/dL???Iron Binding Capacity, Unsaturated - 306 mcg/dL???Iron Binding Capacity, Estimated Total - 324 mcg/dL???% Iron Saturation - 6 % PTT (10/16/2022) ???APTT - 29.6 seconds Type and Screen (10/16/2022) ???Blood Type - O Positive???Antibody Screen - Negative Urinalysis w/hold for Urine Culture (10/16/2022) ???Appear/Color, Urine - LIGHT YELLOW???Specific [place], Urine - 1.008???pH, Urine - 5.5???Albumin, Urine - NEGATIVE???Glucose, Urine - NEGATIVE???Ketones, Urine - NEGATIVE???Bilirubin, Urine - NEGATIVE???Hemoglobin, Urine - NEGATIVE???Nitrite, Urine - NEGATIVE???Leukocyte, Urine - 1+???Urobilinogen - NORMAL? ?WBC's, Urine - 6 /HPF? ?RBC's, Urine - NONE SEEN? ?Squamous Epith - <1 /HPF? ?Mucus- SLIGHT???Hold Urine Culture - Testing available 48 hours from time of collection. VITAMIN B12 (10/16/2022) ???Vitamin B12 Level - 1018 pg/mL Allergies (NKA means No Known Allergies) Bee Stings??(Sardines canned in brine) Other Food Allergy??(Sardines canned in brine) doxycycline Problems Active Problems??(6) AF (atrial fibrillation)?? Cancer of prostate?? Cardiac dysrhythmia?? Chronic kidney disease (CKD)?? COPD (chronic obstructive pulmonary disease)?? Major depressive disorder, recurrent episode with anxious distress?? Education Materials Below is the list of Educational Leaflet Providered with your Discharge Instructions. Valuables and Belongings I fully understand and agree that [facility] accepts no responsibility for all my personal property including clothing, toilet articles, radios, jewelry, dentures, hearing aids, rings, money, or any other property that is in my possession or is brought to me after admission. I understand certain valuables may be placed in a hospital safe for a short period of time. I understand that the hospital is not liable for loss or damage due to accident, fire, or other natural occurrence while said property is in the safe. I accept full responsibility for any personal property that I keep with me, and will not hold the hospital responsible in case of loss or disappearance. I acknowledge that i have been encouraged to send valuables and belongings home. ?? No Valuables/Belongings: No valuables/belongings present Review of Valuable and Belonging List: With witness Possessions released to: no personal devices Date for Pt to Sign Valuables/Belongings: 10/17/22 00:34:00 ?? Other Discharge Information ? Case Management Discharge Plan?? Discharge Plan?? Discharge Agency Information?? Discharge Level of Care at Discharge: long-term facility Name of Agency #1: [facility] Discharge Transportation Arranged: [facility] [phone] Agency Billing Administrator #1: Intake Mode of Transportation Arranged: Ambulance Service Categories #1: Long Term Discharge Arranged Transport Date/Time: 10/19/22 15:00:00 Service Comments #1: You are scheduled to return to [facility] today at 3pm for continuedcare. Discharge Nursing Homes/Rehab Facilities: [facility] Name of Person Notified of Transfer: Dennis Camacho, TAWANNA ?? Pulmonary Rehab Status?? Pulmonary Rehab Discharge Status?? Respiratory Rate: 20 br/min ? Common Emergency Awareness Tips IS IT A STROKE? Act FAST and Check for these signs: FACE Does the face look uneven? ARM Does one arm drift down? SPEECH Does their speech sound strange? TIME Call at any sign of stroke ?? Heart Attack Signs Chest discomfort: Most heart attacks involve discomfort in the center of the chest and lasts more than a few minutes, or goes away and comes back. It can feel like uncomfortable pressure, squeezing, fullness or pain. Discomfort in upper body: Symptoms can include pain or discomfort in one or both arms, back, neck, jaw or stomach. Shortness of breath: With or without discomfort. Other signs: Breaking out in a cold sweat, nausea, or lightheaded. Remember, MINUTES DO MATTER. If you experience any of these heart attack warning signs, call to get immediate medical attention! ?? Smoking can increase your chances of developing chronic health problems and can cause harmful effects to other family members in your house. If you smoke, you are strongly encouraged to quit. Please call [employer] [facility] at [phone] or [phone] ([phone]) or log in to [email or web address] for referrals to smoking cessation programs. ?? 842 Suicide & Crisis Lifeline is available 29/12 if you or someone you know needs to find a reason to keep living. By calling 988 you'll be connected to a skilled, trained counselor at a crisis center in your area. INPATIENT DISCHARGE INSTRUCTIONS SIGNATURE PAGE ROD CAMACHO Location:[facility] Registration Date and Time:10/16/2022 17:26 EDT Primary Care Physician: Blanka Chan MD, I ROD CAMACHO, have received the above patient education materials/instructions and have verbalized understanding. If ambulance or transport services are being used I further acknowledge being given a choice of service. ?? If you need to contact me, please call me at this number: . Patient/Head Track Coach Name: Patient/Head Track Coach Signature: Relationship to Patient: Witness Name/Signature: Date: * Yessenia Barahona MD Wut: PERFORM, SIGN, VERIFY Event Display: Patient Education Handout Authored Date: [id number] Patient Care team information Care Team Personnel Name: Petra Curry RN Position: [facility] RN Member Role: Primary Care Nurse Name: Luz Bajwa RN Position: [facility] RN Member Role: Primary Care Nurse Name: Laura Avitia Position: [facility] RN Member Role: Primary Care Nurse Name: Blanka Chan MD Position: [facility] Physician (General Medicine) Member Role: PCP Address: Address: [address] [place] [address] [address] [place] [address]- [place] Name: Lillie Landry RN Position: [facility] RN Member Role: Primary Care Nurse Name: Rosie Torres CNM Position: [facility] Elementary School Teacher Member Role: Primary Care Nurse Address: Address: [address] [place], [place] [address] [address]- [place] Name: Kd Beck RN Position: [facility] RN Member Role: Primary Care Nurse Name: Uzma Perez RN Position: [facility] RN Member Role: Primary Care Nurse Name: Delphine Carver RN Position: [facility] Hospital Deputy Director Of Finance Member Role: Primary Care Nurse Name: Jeanie JACOBO Attending Position: [facility] ED Medicine MD Name: Brenda Odonnell DO Position: [facility] Resident Member Role: ED Resident Address: Address: [address] [place] [address] [place] [address]- [place] Name: Gutierrez Fontana RN Position: [facility] ED RN W/OE and Tasks Member Role: Patient Care Provider Name: Danica Grimes LPN Position: [facility] ED RN W/OE and Tasks Member Role: Patient Care Provider Name: Vincenzo Zacarias Position: [facility] ED TA [facility] Care Team Related Persons Name: EVAN CAMACHO Address: home [address] [facility] [address] Name: DENNIS CAMACHO Address: home [address] [place] [address] Name: GERLAD CAMACHO Address: home [address] [place] [address] Name: LAICIA OLIVAS Address: home [address] [place] [address]
--- OUTSIDE RECORDS SUMMARY | 2023-04-22 01:45 | XMS_ITS | Continuity of Care Document ---
Author Name Unknown Organization [facility] ter Address [address] [place] [address]- Care Team Providers Care Reel Cart Operator Name Role Phone Karl CASTILLO, Alexa Erazo Primary Care Physician [phone] [place] [facility] [place] - 02/09/[address] [address]- Encounter Diagnosis Urinary retention(Final) - 02/04/21 Urinary retention(Final) - 02/07/21 Discharge Disposition: A-Transfer SNF Attending Physician: Gilbetr Avery MD Admitting Physician: Teofilo Robertson MD Referring Physician: Not on Staff, Referring MD Allergies, Adverse Reactions, Alerts Substance Reaction Severity Status Bee Stings Sardines canned in brine Act frantz Other Food Allergy Sardines canned in brine Active Medications acetaminophen 325 mg oral tablet 650 mg, 2, tablet, By Mouth, Every 6 hours, PRN, Maintenance, as needed for fever/paiin, 02/04/21 15:16:00 EDT, Partial fill upon patient request if the prescription is for a schedule II opioid drug. Start Date: 02/04/21 Status: Ordered albuterol 90 mcg/inh inhalation powder 2 puffs, Inhalation, Every 4 hours, PRN Wheezing/Shortness of Breath, Maintenance, 02/04/21 15:27:00 EDT, Powder, Partial fill upon patient request if the prescription is for a schedule II opioid drug. Start Date: 02/04/21 Status: Ordered amLODIPine 10 mg oral tablet 10 mg, Tablet, By Mouth, 02/09/21 9:00:00 EDT Start Date: 02/09/21 Stop Date: 02/09/21 Status: Completed amLODIPine 10 mg oral tablet = 10 mg, By Mouth, Daily, # 30 Doses, 0 Refills, Maintenance, 04/25/15 10:32:29, Tablet Start Date: 04/25/15 Stop Date: 05/25/15 Status: Ordered ammonium lactate 12% topical cream 1 application, Topically, 2 times a day, Maintenance, 02/04/21 15:17:00 EDT, Cream, Partial fill upon patient request if the prescription is for a schedule II opioid drug. Start Date: 02/04/21 Status: Ordered ascorbic acid 500 mg oral tablet 1 tablet = 500 mg, By Mouth, 2 times a day, Maintenance, 02/04/21 15:19:00 EDT, Tablet, Partial fill upon patient request if the prescription is for a schedule II opioid drug. Start Date: 02/04/21 Status: Ordered atenolol 25 mg oral tablet 25 mg, Tablet, By Mouth, 02/09/21 9:00:00 EDT Start Date: 02/09/21 Stop Date: 02/09/21 Status: Completed atorvastatin 20 mg oral tablet 1 tablet = 20 mg, By Mouth, Daily, Maintenance, 02/04/21 15:20:00 EDT, Tablet, Partial fill upon patient request if the prescription is for a schedule II opioid drug. Start Date: 02/04/21 Status: Ordered Dulcolax 10 mg rectal suppository 1 supp = 10 mg, Rectally, Daily, PRN as needed for constipation, Maintenance, 02/04/21 15:27:00 EDT, Suppository, Partial fill upon patient request if the prescription is for a schedule II opioid drug. Start Date: 02/04/21 Status: Ordered Eliquis 5 mg oral tablet 1 tablet = 5 mg, By Mouth, 2 times a day, Maintenance, 02/04/21 15:23:00 EDT, Tablet, Partial fill upon patient request if the prescription is for a schedule II opioid drug. Start Date: 02/04/21 Status: Ordered erythromycin 0.5% ophthalmic ointment 1 ribbon, Eye, Right, 2 times a day, Maintenance, 02/04/21 15:25:00 EDT, Partial fill upon patient request if the prescription is for a schedule II opioid drug. Start Date: 02/04/21 Status: Ordered ferrous sulfate 325 mg oral tablet 1 tablet = 325 mg, By Mouth, Every 48 hours, 0 Refills, Maintenance, 04/21/15 6:12:04 EST Start Date: 04/21/15 Status: Ordered Fleet Enema 19 gm-7 gm rectal enema 1 each, Rectally, Once, PRN for constipation, Maintenance, 02/04/21 15:26:00 EDT, Enema, Partial fill upon patient request if the prescription is for a schedule II opioid drug. Start Date: 02/04/21 Status: Ordered furosemide 40 mg oral tablet 40 mg, 1, tablet, By Mouth, 2 times a day, Refills 0, Maintenance, 12/03/15 10:36:45 EDT Start Date: 12/03/15 Status: Ordered gabapentin 300 mg oral capsule 300 mg, 1, capsule, By Mouth, Daily at bedtime, Refills 0, Maintenance, 02/09/21 13:15:00 EDT, Partial fill upon patient request if the prescription is for a schedule II opioid drug. Start Date: 02/09/21 Status: Ordered melatonin 5 mg oral tablet 1 tablet = 5 mg, By Mouth, Daily at bedtime, Maintenance, 02/04/21 15:18:00 EDT, Tablet, Partial fill upon patient request if the prescription is for a schedule II opioid drug. Start Date: 02/04/21 Status: Ordered metFORMIN 500 mg oral tablet 1 tablet = 500 mg, By Mouth, Daily Start Date: 02/04/21 Status: Ordered Milk of Magnesia 8% oral suspension 30 mL = 2.4 Gm, By Mouth, Daily, PRN for constipation, Maintenance, 02/04/21 15:26:00 EDT, Suspension, Partial fill upon patient request if the prescription is for a schedule II opioid drug. Start Date: 02/04/21 Status: Ordered omeprazole 20 mg oral enteric coated capsule 1 capsule = 20 mg, By Mouth, Daily in AM, Maintenance, 02/04/21 15:13:00 EDT, EC Capsule, Partial fill upon patient request if the prescription is for a schedule II opioid drug. Start Date: 02/04/21 Status: Ordered oxyCODONE 5 mg oral tablet 2.5 mg, 0.5, tablet, By Mouth, Daily at supper, PRN, Dx: osteomyelitis, # 30 tablet, Refills 0, Tot. Refills 0, Maintenance, Pain , Moderate, 02/09/21 13:31:00 EDT, Print Requisition, Partial fill upon patient request if the prescription is for a sche... Start Date: 02/09/21 Status: Ordered oxyCODONE 5 mg oral tablet 2.5 mg, Tablet, By Mouth, Daily at supper, PRN for Pain , Moderate, Routine, 02/05/21 13:35:00 EDT Start Date: 02/05/21 Stop Date: 02/10/21 Status: Discontinued Potassium Chloride (Agw-Kjfz-Cys M20) 20 mEq oral tablet, extended release 1 tablet = 20 mEq, By Mouth, Daily at bedtime, Maintenance, 02/04/21 15:17:00 EDT, Partial fill upon patient request if the prescription is for a schedule II opioid drug. Start Date: 02/04/21 Status: Ordered risperiDONE 0.25 mg oral tablet 0.25 mg, 1, tablet, By Mouth, Daily, Maintenance, 02/04/21 15:21:00 EDT, Partial fill upon patient request if the prescription is for a schedule II opioid drug. Start Date: 02/04/21 Status: Ordered sertraline 25 mg oral tablet 1 tablet = 25 mg, By Mouth, Daily, # 30 tablet, 0 Refills, Maintenance, 02/17/21 9:00:00 EDT, Tablet, Partial fill upon patient request if the prescription is for a schedule II opioid drug. Start Date: 02/17/21 Status: Ordered tamsulosin 0.4 mg oral capsule 1 capsule = 0.4 mg, By Mouth, Daily, 0 Refills, Maintenance, 04/21/15 6:11:08 EST Start Date: 04/21/15 Status: Ordered Vitamin D3 1000 intl units oral tablet 1 tablet = 25 mcg, By Mouth, Daily, Maintenance, 02/04/21 15:24:00 EDT, Tablet, Partial fill upon patient request if the prescription is for a schedule II opioid drug. Start Date: 02/04/21 Status: Ordered Problem List Condition Effective Dates Status Health Status Inform ant AF (atrial fibrillation)(Confirmed) 1 Active COPD (chronic obstructive pu lmonary disease)(Confirmed) Active Chronic kidney disease (CKD)(Confirmed) Active Cardiac dysrhythmia(Confirmed) Active Cancer of prostate(Confirmed) Active Major depressive disorder, r ecurrent episode with anxious distress(Confirmed) Active 1not on anticoag d/t risk of falls Results Orders for Microbiology Reports Name Date Blood Culture 02/04/21 Blood Culture #2 02/04/21 Microbiology Reports TEST:Blood Culture STATUS:Auth (Verified) BODY SITE: SOURCE:Blood COLLECTED DATE/TIME:02/04/21 11:36 AM Blood Culture SPECIMEN DESCRIPTION : BLOOD PIC LINE SPECIAL REQUESTS : NONE CULTURE : NO GROWTH 5 DAYS. REPORT STATUS : FINAL 02/09/2021 TEST:Blood Culture, Second Order STATUS:Auth (Verified) BODY SITE: SOURCE:Blood COLLECTED DATE/TIME:02/04/21 11:36 AM Blood Culture, Second Order SPECIMEN DESCRIPTION : BLOOD LEFTAC SPECIAL REQUESTS : NONE CULTURE : NO GROWTH 5 DAYS. REPORT STATUS : FINAL 02/09/2021 Radiology Reports * Exam Date Time Procedure Performing Provider Status 02/05/21 11:07 AM Chest Portable Tasneem Miller; Yoselyn th (Verified) Notes: (Chest Portable) Reason For Exam: Line Placement RESULT: Chest Portable Chest Portable AP semiupright at 10:29 AM REASON: Line Placement; Clinical Question(s): Line Placement; Special Instructions: right picc lineverification / Line Placement COMPARISON: 01/08/2021 FINDINGS: LINES AND TUBES: Right upper extremity PICC with catheter tip projecting in the SVC. LUNGS AND PLEURA: Mild opacity in the lung bases, likely atelectasis. Mild linear opacity in the right midlung, likely intrafissural pleural fluid. No large pleural effusion. No pneumothorax. HEART, MEDIASTINUM AND EVERTON: Unchanged. BONES AND SOFT TISSUES: No acute abnormality. IMPRESSION: Right upper extremity PICC with the catheter tip projecting in the SVC. Mild basilar airspace opacity, likely atelectasis. WSN: [id number] Ordering Physician: Melly Regalado Dictated By: Oz Flores MD Dictated Date/Time: 02/05/21 11:12 a Reviewed By: Oz Flores MD Signed By: Oz Flores MD Signed Date/Time: 02/05/21 11:12 am Transcribed By: SHITAL Transcribed Date/Time: 02/05/21 11:10 am * Exam Date Time Procedure Performing Provider Status 02/04/21 12:54 PM Foot Min 3 Views Left Monty Alcala; Auth (Verified) Notes: (Foot Min 3 Views Left) Reason For Exam: Infection RESULT: Foot Min 3 Views Left Foot Min 3 Views Left, 3 views Hx of Present Illness: Urinary retention, ?sepsis; Reason: Infection; Clinical Question(s): Osteomyelitis COMPARISON: 08/15/2020. FINDINGS: No fractures or bone lesions. Moderate osteoarthritis first MTP joint. Mild soft tissue prominence somewhat improved compared to prior examination. IMPRESSION: No fracture or other acute osseous process. WSN: [id number] Ordering Physician: Anoop Vazquez Dictated By: Cristhian Gee MD Dictated Date/Time: 02/04/21 1:12 pm Reviewed By: Cristhian Gee MD Signed By: Cristhian Gee MD Signed Date/Time: 02/04/21 1:12 pm Transcribed By: SHITAL Transcribed Date/Time: 02/04/21 1:09 pm * Exam Date Time Procedure Performing Provider Status 02/04/21 12:54 PM Chest 2 Views Frontal and Lat Eusebio Alcala; Auth (Verified) Notes: (Chest 2 Views Frontal and Lat) Reason For Exam: Shortness of Breath RESULT: Chest 2 Views Frontal and Lat Chest 2 Views Frontal and Lat HX OF PRESENT ILLNESS: Urinary retention, ?sepsis; Reason: Shortness of Breath; Clinical Question(s): CHF / CHF COMPARISON: 04/21/2015 FINDINGS: LINES AND TUBES: There is a right upper extremity PICC with the catheter tip projecting in the SVC. LUNGS AND PLEURA: Clear lungs. Normal pulmonary vascularity. No pleural effusion. No pneumothorax. HEART, MEDIASTINUM AND EVERTON: Mild prominence of the cardiac silhouette. Aorta is mildly calcified. BONES AND SOFT TISSUES: No acute abnormality. IMPRESSION: No evidence of acute abnormality. WSN: [id number] Ordering Physician: Romaine Orta V Dictated By: Oz Flores MD Dictated Date/Time: 02/04/21 12:58 p Reviewed By: Oz Flores MD Signed By: Oz Flores MD Signed Date/Time: 02/04/21 12:58 pm Transcribed By: SHITAL Transcribed Date/Time: 02/04/21 12:57 pm Vital Signs Most recent to oldest [Reference Range]: 1 2 3 Height 181 cm (02/09/21 12:31 PM) 181 cm (02/09/21 5:43 AM) 181 cm (02/08/21 11:43 PM) Weight 77.6 kg (02/05/21 5:47 PM) 77.2 kg (02/05/21 1:02 AM) 77.2 kg (02/04/21 4:53 PM) Oxygen Saturation [94-100 %] 95 % (02/09/21 12:31 PM) 98 % (02/09/21 5:43 AM) 94 % (02/08/21 11:43 PM) Pulse Rate [55-90 bpm] 77 bpm (02/09/21 12:31 PM) 61 bpm (02/09/21 8:58 AM) 55 bpm (02/09/21 5:43 AM) Body Mass Index [18.5-24.99] 23.69 (02/05/21 5:47 PM) 23.56 (02/05/21 1:02 AM) 23.56 (02/04/21 4:53 PM) Blood Pressure [90-138/55-84 mm Hg] 116/53mm Hg (02/09/21 12:31 PM) 112/76mm Hg (02/09/21 8:58 AM) 112/76mm Hg (02/09/21 8:53 AM) Respiratory Rate [16-30 br/min] 18 br/min (02/09/21 12:31 PM) 20 br/min (02/09/21 9:24 AM) 18 br/min (02/09/21 5:43 AM) Temperature [96.8-100.4 DegF] 97.5 DegF (02/09/21 12:31 PM) 97.7 DegF (02/09/21 5:43 AM) 97.4 DegF (02/08/21 11:43 PM) Mode of Delivery (Oxygen) Room air (02/09/21 12:31 PM) Room air (02/09/21 5:43 AM) Room air (02/08/21 11:43 PM) Blood pressure sites Arm, right (02/09/21 12:31 PM) Arm, left (02/09/21 5:43 AM) Arm, left (02/08/21 11:43 PM) Temperature Route Axillary (02/09/21 12:31 PM) Oral (02/09/21 5:43 AM) Oral (02/08/21 11:43 PM) Dry Weight 77.6 kg (02/05/21 5:47 PM) 77.2 kg (02/05/21 1:02 AM) 77.2 kg (02/04/21 4:53 PM) Social History Social History Type Response Smoking Status Never smoker entered on: 04/21/15 Sex
--- OUTSIDE RECORDS SUMMARY | 2023-04-22 01:45 | XMS_ITS | Continuity of Care Document ---
Author Name Unknown Organization [facility] ter Address [address] [place] [address]- Care Team Providers Care Conference Center Coordinator Name Role Phone Elder Blanka GALEAS Primary Care Physicia n Encounter [facility] [place](s): 10/14/22 - 10/14/[address] [address]- Encounter Diagnosis Anemia of chronic disease(Final) - 10/14/22 Discharge Disposition: A-D/C Home Attending Physician: Lynnette Lu MD Admitting Physician: Lynnette Lu MD Referring Physician: Not on Staff, Referring [...] 10 mg, 1, tablet, By Mouth, Daily, Maintenance, 10/14/22 16:02:00 EDT, Partial fill upon patient request if the prescription is for a schedule II opioid drug. Start Date: 10/14/22 Status: Ordered atorvastatin 20 mg oral tablet [...] Date: 10/06/22 Stop Date: 01/04/23 Status: Ordered Eliquis 5 mg oral tablet [...] 6:12:04 EST Start Date: 04/21/15 Status: Ordered furosemide 40 mg oral tablet 40 mg, 1, tablet, By Mouth, 2 times a day, Refills 0, Maintenance, 12/03/15 10:36:45 EDT Start Date: 12/03/15 Status: Ordered gabapentin 100 mg oral capsule 200 mg, 2, capsule, By Mouth, 2 times a day, Refills 0, Maintenance, 10/05/22 11:01:00 EDT, Partialfill upon patient request if the prescription is for a schedule II opioid drug. Start Date: 10/05/22 Status: Ordered gabapentin 300 mg oral capsule 300 mg, 1, capsule, By Mouth, Daily at bedtime, Refills 0, Maintenance, 02/09/21 13:15:00 EDT, Partial fill upon patient request if the prescription is for a schedule II opioid drug. Start Date: 02/09/21 Status: Ordered Radha-Tussin Expectorant 100 mg/5 mL oral liquid 10 mL = 200 mg, By Mouth, Every 6 hours, PRN Cough, Maintenance, 10/14/22 16:04:00 EDT, Partial fill upon patient request if the prescription is for a schedule II opioid drug. Start Date: 10/14/22 Status: Ordered melatonin 5 mg oral tablet 1 tablet = 5 mg, By Mouth, Daily at bedtime, Maintenance, 02/04/21 15:18:00 EDT, Tablet, Partial fill upon patient request if the prescription is for a schedule II opioid drug. Start Date: 02/04/21 Status: Ordered metFORMIN 500 mg oral tablet 1 tablet = 500 mg, By Mouth, Daily Start Date: 02/04/21 Status: Ordered Narcan 4 mg/0.1 mL nasal [...] opioid drug. Start Date: 02/04/21 Status: Ordered Potassium Chloride (Mur-Zjzo-Ydj M20) 20 mEq oral tablet, extended release [...] 1 2 3 Oxygen Saturation [94-100 %] 98 % (10/14/22 6:29 PM) 97 % (10/14/22 5:44 PM) 98 % (10/14/22 2:25 PM) Pulse Rate [55-90 bpm] 78 bpm (10/14/22 6:29 PM) 62 bpm (10/14/22 5:44 PM) 63 bpm (10/14/22 2:25 PM) Blood Pressure [90-138/55-84 mm Hg] 142/82mm Hg *H* (10/14/22 6:29 PM) 140/68mm Hg *H* (10/14/22 5:44 PM) 150/76mm Hg *H* (10/14/22 2:25 PM) Respiratory Rate [16-30 br/min] 19 br/min (10/14/22 6:29 PM) 15 br/min *L* (10/14/22 5:44 PM) 14 br/min *L* (10/14/22 2:25 PM) Temperature [96.8-100.4 DegF] 97.6 DegF (10/14/22 2:25 PM) Mode of Delivery (Oxygen) Room air (10/14/22 6:29 PM) Room air (10/14/22 5:44 PM) Room air (10/14/22 2:25 PM) Blood pressure sites Arm, left (10/14/22 5:44 PM) Arm, left (10/14/22 2:25 PM) Temperature Route Oral (10/14/22 2:25 PM) Social History Social History Type Response Smoking Status Never smoker entered on: 04/21/15 Sex EKG study * Event Display: EKG Authored Date: Patient Care team information Care Team Personnel Name: Luz Bajwa RN Position: [facility] RN Member Role: Primary Care Nurse Name: Blanka Chan MD Position: [facility] Physician (General Medicine) Member Role: PCP Address: Address: [address] [place] [address] [address]1 [facility] [address] Name: Rosie Torres CNM Position: [facility] Roof Slater Member Role: Primary Care Nurse Address: Address: [address] [place] [address] [facility] [address] Name: Kd Beck RN Position: [facility] RN Member Role: Primary Care Nurse Name: Uzma Perez RN Position: [facility] RN Member Role: Primary Care Nurse Name: Delphine Carver RN Position: [facility] Hospital Motorboat Operator Member Role: Primary Care Nurse Name: Dorothy Rapp LPN Position: [facility] ED RN W/OE and Tasks Member Role: Patient Care Provider Name: Lynnette Lu MD Position: [facility] ED Medicine MD Member Role: Admitting Physician Address: Address: [address] [place] [address] [place] [address]- Name: Artemio Lockett Position: [facility] ED [facility] Member Role: Delivery Crew Member Name: Eusebio Shukla Position: [facility] Associate Professional Member Role: ED Physician Neighborhood Coordinator Address: Address: [address] [place] [address] [place] [address]- Care Team Related Persons Name: LOTUS MOBLEY Address: [place] [address] Name: GERALD MOBLEY Address: home [address] [place] [address] Name: ALICIA OLIVAS Address: home [address] [place] [address]
--- OUTSIDE RECORDS SUMMARY | 2023-04-22 01:45 | XMS_ITS | Patient Health Record ---
Author Name Unknown Organization [facility] Address [address] [place] [address] Care Team Providers Care Undercoater Name Role Phone Elder Erick LIMA Primary Care Provider Riley Peguero Unavailable [phone] ALLERGIES Allergen (clinical drug ingredient) Drug/Non Drug Allergy documented on EMR Reaction Allergy Type Onset Date Status doxycycline Doxycycline Unknown Drug Allergy Act frantz Bee Sting anaphylaxis Allergy Active bee pollen Bee Pollen anaphylaxis Drug Allergy Act frantz Sardine sardine (uncoded) itching Allergy Ac tive REASON FOR REFERRAL No Information MEDICATIONS Medication SIG (Take, Route, Frequency, Duration) Notes Start Date End Date Status tylenol Active Levalbuterol HCl 1.25 MG/3ML Inhalation for 15 Active Eliquis 5 MG Oral for 14 Activ e Colchicine 0.6 MG Oral for 7 A ctive Zoloft 50 MG 1 tablet Orally Once a day for 30 day(s) Active Chlorhexidine Gluconate 0.12 % Mouth/Throat for 30 Active Vitamin D3 Active Sertraline HCl 50 MG Oral for 30 Active Azithromycin 250 MG 1 tablet Oral m,w, f ri for pulmonolgy Active Loratadine 10 MG 1 tablet Orally Once a day for 30 day(s) Active amLODIPine Besylate 10 MG Oral for 30 Active Radha-Tussin 100 MG/5ML 10 mL as needed O rally every 4 hrs Active AeroChamber Plus Tadeo-Vu - for 1 Active Tamsulosin HCl 0.4 MG Oral for 7 Active Iron (Ferrous Sulfate) 325 (65 Fe) MG 1 tablet Orally two times a day Active hydrALAZINE HCl 50 MG Oral for 30 Active Docusate Sodium 100 MG 1 capsule as need ed Orally Once a day for 30 day(s) Active Atorvastatin Calcium 20 MG Oral for 30 Active Omeprazole Magnesium 20 MG 1 tablet 30 m inutes before morning meal Orally Once a day for 30 day(s) Active Gabapentin 300 MG Oral for 30 Active Melatonin 5 MG 1 tablet in the even ing Orally Once a day for 30 day(s) Active Furosemide 40 MG Oral for 30 A ctive MiraLax 17 GM/SCOOP 1 scoop mixed with 8 ounces of fluid Orally Once a day for 30 day(s) Active metFORMIN HCl 500 MG Oral for 30 Active SOCIAL HISTORY Tobacco Use: Social History Observation Description Date Details (start date - stop date) Never Smoker NA - NA Sex Assigned At : Social History Observation Description Sex Assigned At Unknown Tobacco Use/Smoking Question Answer Notes Patient is a nonsmoker Alcohol Screen Question Answer Notes Did you have a drink containing alcohol in the p ast year? No Points 0 Interpretation Negative PROBLEMS Problem Type ICD Code Onset Dates Problem Status W/U Status Risk SNOMED Code Notes Problem Heme + stool (R19.5) Active confirmed 37893782 Problem Iron deficiency anemia due to chronic blood loss (D50.0) Active confirmed 161057805 Encounters Encounter Location Date Provider Diagnosis [facility] [address] [place] [id number] 03/10/2023 Riley White Heme + stool R19.5 and Iron deficiency anemia due to chronic blood loss D50.0 [facility] [address] [place] [id number] 03/11/2023 Riley White ASSESSMENTS Encounter Date Diagnosis Assessment Notes Treatment Notes Treatment Clinical Notes 03/10/2023 Heme + stool (ICD-10 - R19.5) You should continue the daily oral Iron and have a blood count once a month. Continue omeprazole. Avoid all aspirin and NSAIDs. Transfuse blood or give Iron infusions as needed. See me as needed. 03/10/2023 Iron deficiency anemia due to chronic blood loss (ICD-10 - D50.0) PLAN OF TREATMENT No Information Insurance Providers Payer Name Payer Address Payer Phone Subscriber Number Group Number Insured Name Patient Relationship to Insured Coverage Start Date Coverage End Date [facility] [address] Attn Claims BRIAN Olivarez [facility] [id number] ROD HANSON Self - patient is the insured MEDICAL (GENERAL) HISTORY Medical History History ICD Code Negative colonoscopy [place] [address] 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 Kirkpatrick
--- OUTSIDE RECORDS SUMMARY | 2023-04-22 01:45 | XMS_ITS | Continuity of Care Document ---
Author Name Unknown Organization [facility] ter Address [address] [place] [id number]- Care Team Providers Care Cut Off Sawyer Name Role Phone Alexa Barajas NP, V Primary Care Physician [place] [facility] [place]15/[address] [phone]- Encounter Diagnosis COVID-19(Final) - 08/15/20 Cellulitis(Final) - 08/15/20 Discharge Disposition: A-D/C Home Attending Physician: Rachel Doyle MD Admitting Physician: Rachel Doyle MD Referring Physician: Not on Staff, Referring MD Allergies, Adverse Reactions, Alerts Substance Reaction Severity Status Bee Stings Sardines canned in brine Act frantz Other Food Allergy Sardines canned in brine Active Medications amLODIPine 10 mg oral tablet = 10 mg, By Mouth, Daily, # 30 Doses, 0 Refills, Maintenance, 04/25/15 10:32:29, Tablet Start Date: 04/25/15 Stop Date: 05/25/15 Status: Ordered aspirin 325 mg oral delayed release tablet 1 tablet = 325 mg, By Mouth, Daily, 0 Refills, Maintenance, 04/21/15 6:13:10 Start Date: 04/21/15 Status: Ordered atenolol 25 mg oral tablet 1 tablet = 25 mg, By Mouth, Daily, 0 Refills, Maintenance, 04/21/15 6:12:52 Start Date: 04/21/15 Status: Ordered cetirizine 10 mg oral tablet 1 tablet = 10 mg, By Mouth, Daily, 0 Refills, Maintenance, 04/21/15 6:12:36 Start Date: 04/21/15 Status: Ordered clindamycin 300 mg oral capsule 1 capsule = 300 mg, By Mouth, 4 times a day, # 28 capsule, 0 Refills, Soft Stop, 08/15/20 18:02:00 EST, Capsule, [facility], Partial fill upon patient request if the prescription is for a schedule II opioid drug. Start Date: 08/15/20 Stop Date: 08/22/20 Status: Ordered cloNIDine 0.1 mg oral tablet = 0.1 mg, By Mouth, 2 times a day, # 60 Doses, 0 Refills, Maintenance, 04/25/15 10:33:42, Tablet Start Date: 04/25/15 Stop Date: 05/25/15 Status: Ordered EpiPen 2-Romaine = 0.3 mg, Intramuscular, Once, 0 Refills, Maintenance, 04/21/15 6:10:46 Start Date: 04/21/15 Status: Ordered ferrous sulfate 325 mg oral tablet 1 tablet = 325 mg, By Mouth, Daily, 0 Refills, Maintenance, 04/21/15 6:12:04 Start Date: 04/21/15 Status: Ordered FLUoxetine 20 mg oral capsule 1 capsule = 20 mg, By Mouth, Daily, 0 Refills, Maintenance, 04/21/15 6:06:12 Start Date: 04/21/15 Status: Ordered Fluticasone Nasal 2 sprays, Nares, Both, Daily, 0 Refills, Maintenance, 04/21/15 6:10:03 Start Date: 04/21/15 Status: Ordered furosemide 40 mg oral tablet 40 mg, 1, tablet, By Mouth, Daily, # 30 tablet, Refills 0, Maintenance, 12/03/15 10:36:45 Start Date: 12/03/15 Status: Ordered gabapentin 300 mg oral capsule 1 capsule = 300 mg, By Mouth, Daily at bedtime, 0 Refills, Maintenance, 04/21/15 6:09:33 Start Date: 04/21/15 Status: Ordered lidocaine 2% topical gel with applicator See Instructions, Apply to wound as needed for breakthrough pain without relief from Tylenol, # 20 mL, 1 Refills, Soft Stop, 05/15/15 12:24:26, Gel, Apply to wound as needed for breakthrough pain without relief from Tylenol Start Date: 05/15/15 Status: Ordered lidocaine 2% topical gel with applicator See Instructions, use a small amount on the right calf wound with dressing changes if pain present., # 60 mL, 11 Refills, Soft Stop, 08/27/15 11:03:53, use a small amount on the right calf wound withdressing changes if pain present. Start Date: 08/27/15 Status: Ordered lidocaine 5% topical ointment 1 applicator, Topically, 3 times a day, 0 Refills, Maintenance, 04/21/15 6:08:33 Start Date: 04/21/15 Status: Ordered Melatonin 3 mg oral tablet 1 tablet = 3 mg, By Mouth, Daily at bedtime, PRN for insomnia, # 60 tablet, 0 Refills, Maintenance,04/21/15 6:08:05, Tablet Start Date: 04/21/15 Status: Ordered risperiDONE 0.5 mg oral tablet 0.5 mg, 1, tablet, By Mouth, Daily, # 30 tablet, Refills 0, Maintenance, 12/03/15 10:27:44 Start Date: 12/03/15 Status: Ordered Senokot S Tablet 1, tablet, By Mouth, Daily at bedtime, Maintenance, 04/21/15 6:09:01 Start Date: 04/21/15 Status: Ordered sodium hypochlorite 0.125% topical solution See Instructions, Wet to dry daily, # 1 bottle, 0 Refills, Maintenance, 05/09/15 11:33:32, Wet to dry daily Start Date: 05/09/15 Status: Ordered tamsulosin 0.4 mg oral capsule 1 capsule = 0.4 mg, By Mouth, 3 times a day after meals, 0 Refills, Maintenance, 04/21/15 6:11:08 Start Date: 04/21/15 Status: Ordered Problem List Condition Effective Dates Status Health Status Inform ant AF (atrial fibrillation)(Confirmed) 1 Active COPD (chronic obstructive pu lmonary disease)(Confirmed) Active Chronic kidney disease (CKD)(Confirmed) Active Cardiac dysrhythmia(Confirmed) Active Cancer of prostate(Confirmed) Active Major depressive disorder, r ecurrent episode with anxious distress(Confirmed) Active 1not on anticoag d/t risk of falls Results Radiology Reports * Exam Date Time Procedure Performing Provider Status 08/15/20 5:01 PM Foot Min 3 Views Left Loretta Camacho ; Auth (Verified) Notes: (Foot Min 3 Views Left) Reason For Exam: Erythema RESULT: Foot Min 3 Views Left Tibia/Fibula 2 Views Left, Foot Min 3 Views Left Hx of Present Illness: Reason: Erythema; Clinical Question(s): Osteomyelitis COMPARISON: None. FINDINGS: No fracture or acute osseous abnormality of the tibia or fibula. Possible small suprapatellar jointeffusion. No acute abnormality the ankle. No fracture or acute osseous abnormality of the foot. Joint space narrowing of the interphalangeal joints diffusely with mild spurring of the dorsal midfoot joints and mild plantar calcaneal spurring as well as Achilles tendon enthesopathy. Moderate dorsal forefoot soft tissue swelling. IMPRESSION: 1. No fracture or acute osseous abnormality to suggest osteomyelitis. 2. Moderate dorsal forefoot soft tissue swelling. 3. Possible small suprapatellar joint effusion. 4. Degenerative changes as described. WSN: [id number] Ordering Physician: Lee Reynolds Dictated By: Timi Yeh DO Dictated Date/Time: 08/15/20 5:06 pm Reviewed By: Timi Yeh DO Signed By: Timi Yeh DO Signed Date/Time: 08/15/20 5:06 pm Transcribed By: SHITAL Transcribed Date/Time: 08/15/20 5:02 pm * Exam Date Time Procedure Performing Provider Status 08/15/20 5:01 PM Tibia/Fibula 2 Views Left Wolf Camacho; Yoandy (Verified) Notes: (Tibia/Fibula 2 Views Left) Reason For Exam: Erythema RESULT: Tibia/Fibula 2 Views Left Tibia/Fibula 2 Views Left, Foot Min 3 Views Left Hx of Present Illness: Reason: Erythema; Clinical Question(s): Osteomyelitis COMPARISON: None. FINDINGS: No fracture or acute osseous abnormality of the tibia or fibula. Possible small suprapatellar jointeffusion. No acute abnormality the ankle. No fracture or acute osseous abnormality of the foot. Joint space narrowing of the interphalangeal joints diffusely with mild spurring of the dorsal midfoot joints and mild plantar calcaneal spurring as well as Achilles tendon enthesopathy. Moderate dorsal forefoot soft tissue swelling. IMPRESSION: 1. No fracture or acute osseous abnormality to suggest osteomyelitis. 2. Moderate dorsal forefoot soft tissue swelling. 3. Possible small suprapatellar joint effusion. 4. Degenerative changes as described. WSN: [id number] Ordering Physician: Lee Reynolds Dictated By: Timi Yeh DO Dictated Date/Time: 08/15/20 5:06 pm Reviewed By: Timi Yeh DO Signed By: Timi Yeh DO Signed Date/Time: 08/15/20 5:06 pm Transcribed By: SHITAL Transcribed Date/Time: 08/15/20 5:02 pm Vital Signs Most recent to oldest [Reference Range]: 1 2 3 Oxygen Saturation [94-100 %] 99 % (08/15/20 8:52 PM) 98 % (08/15/20 8:12 PM) 99 % (08/15/20 6:41 PM) Pulse Rate [55-90 bpm] 66 bpm (08/15/20 8:52 PM) 67 bpm (08/15/20 8:12 PM) 66 bpm (08/15/20 6:41 PM) Blood Pressure [90-138/55-84 mm Hg] 148/74mm Hg *H* (08/15/20 8:52 PM) 148/74mm Hg *H* (08/15/20 8:12 PM) 142/73mm Hg *H* (08/15/20 6:41 PM) Respiratory Rate [16-30 br/min] 18 br/min (08/15/20 8:52 PM) 20 br/min (08/15/20 8:12 PM) 20 br/min (08/15/20 6:41 PM) Temperature [96.8-100.4 DegF] 97.6 DegF (08/15/20 6:41 PM) 97.7 DegF (08/15/20 3:10 PM) Mode of Delivery (Oxygen) Room air (08/15/20 8:52 PM) Room air (08/15/20 8:12 PM) Room air (08/15/20 6:41 PM) Blood pressure sites Arm, right (08/15/20 6:41 PM) Arm, right (08/15/20 3:07 PM) Temperature Route Oral (08/15/20 8:12 PM) Oral (08/15/20 6:41 PM) Oral (08/15/20 3:10 PM) Social History Social History Type Response Smoking Status Never smoker entered on: 04/21/15 Sex
--- OUTSIDE RECORDS SUMMARY | 2023-04-22 01:45 | XMS_ITS | Continuity of Care Document ---
Author Name Unknown Organization [facility] ter Address [address] [place] [phone]- Care Team Providers Care Senior Benefits Manager Name Role Phone Karl CASTILLO, Alexa Erazo Primary Care Physician [phone] [place] [facility] [place] 10/08/[address] [phone]- Encounter Diagnosis Cellulitis of left leg(Final) - 10/08/20 Discharge Disposition: A-D/C Home Attending Physician: Maddy Chang MD Admitting Physician: Maddy Chang MD Referring Physician: Not on Staff, Referring [...] 04/21/15 6:12:52 Start Date: 04/21/15 Status: Ordered Bactrim DS 800 mg-160 mg oral tablet 1 tablet, By Mouth, 2 times a day, for 5 days, # 10 tablet, 0 Refills, Acute 10/13/20 18:52:00 EDT,10/08/20 18:52:00 EDT, Tablet, [facility]/pharmacy #[id number], Partial fill upon patient request if the prescription is for a schedule II opioid drug., 1 tablet By... Start Date: 10/08/20 Stop Date: 10/13/20 Status: Ordered cetirizine 10 mg oral tablet 1 tablet = 10 mg, By Mouth, Daily, 0 Refills, Maintenance, 04/21/15 6:12:36 Start Date: 04/21/15 Status: Ordered clindamycin 300 mg oral capsule 1 capsule = 300 mg, By Mouth, 4 times a day, # 28 capsule, 0 Refills, Soft Stop, 08/15/20 18:02:00 EST, Capsule, [facility], Partial fill upon patient [...] 04/21/15 6:09:33 Start Date: 04/21/15 Status: Ordered Keflex monohydrate 500 mg oral capsule 1 capsule = 500 mg, By Mouth, 4 times a day, for 5 days, # 20 capsule, 0 Refills, Acute 10/13/20 18:52:00 EDT, 10/08/20 18:52:00 EDT, Capsule, [facility]/pharmacy #[id number], Partial fill upon patient request ifthe prescription is for a schedule II opioid drug. Start Date: 10/08/20 Stop Date: 10/13/20 Status: Ordered lidocaine 2% topical gel with [...] Exam Date Time Procedure Performing Provider Status 10/08/20 5:22 PM Tibia/Fibula 2 Views Left Lorene Chun; Auth (Verified) Notes: (Tibia/Fibula 2 Views Left) Reason For Exam: Erythema RESULT: Tibia/Fibula 2 Views Left Tibia/Fibula 2 Views Left Hx of Present Illness: coming from PCP office. R AKA about a year ago and ever since pt has had cellulitis in both LE. LLE cellulitis worsening over last 2 weeks.; Reason: Erythema; Clinical Question(s): Other: COMPARISON: 08/15/2020. FINDINGS: No fractures or bone lesions. Visualized joints are normal. There are vascular arterial calcifications. IMPRESSION: Normal. WSN: [id number] Ordering Physician: Pipo Stevens Dictated By: Misty Ortiz MD Dictated Date/Time: 10/08/20 5:26 pm Reviewed By: Misty Ortiz MD Signed By: Misty Ortiz MD Signed Date/Time: 10/08/20 5:26 pm Transcribed By: SHITAL Transcribed Date/Time: 10/08/20 5:23 pm Vital Signs Most recent to oldest [Reference Range]: 1 2 Oxygen Saturation [94-100 %] 98 % (10/08/20 7:19 PM) 99 % (10/08/20 3:24 PM) Pulse Rate [55-90 bpm] 77 bpm (10/08/20 7:19 PM) 72 bpm (10/08/20 3:24 PM) Blood Pressure [90-138/55-84 mm Hg] 155/ 79mm Hg *H* (10/08/20 7:19 PM) 168/74mm Hg *H* (10/08/20 3:24 PM) Respiratory Rate [16-30 br/min] 18 br/mi n (10/08/20 7:19 PM) 17 br/min (10/08/20 3:24 PM) Temperature [96.8-100.4 DegF] 97.4 DegF (10/08/20 3:24 PM) Mode of Delivery (Oxygen) Room air (10/08/20 3:24 PM) Blood pressure sites Arm, left (10/08/20 3:24 PM) Temperature Route Oral (10/08/20 3:24 PM) Social History Social History Type Response Smoking Status Never smoker entered on: 04/21/15 Sex
--- OUTSIDE RECORDS SUMMARY | 2023-04-22 01:45 | XMS_ITS | Continuity of Care Document ---
Author Name Unknown Organization [facility] ter Address [address] [place] [id number] Care Team Providers Care Chief Lending Officer Name Role Phone Karl CASTILLO, Alexa Erazo Primary Care Physician Encounter [facility] Date(s): 10/05/22 - 10/06/[address] [address] Discharge Disposition: A-Transfer SNF Attending Physician: Dulce Beltran MD Admitting Physician: Can Pagan MD Referring Physician: Not on Staff, Referring [...] 23-valent vaccine 07/28/13 Recorded pneumococcal 23-valent vaccine 11/10/00 Recorded pneumococcal 13-valent vaccine 06/22/15 Recorded Zoster [...] opioid drug. Start Date: 02/04/21 Status: Ordered Acetaminophen Tablet 650 mg, Tablet, By Mouth, Every 4 hours, PRN for Pain , Mild, Temperature Greater than 100.5, Routine, 10/05/22 7:50:00 EDT Start Date: 10/05/22 Stop Date: 11/04/22 Status: Ordered amLODIPine 10 mg oral tablet = 10 mg, By Mouth, Daily, # 30 Doses, 0 Refills, Maintenance, 04/25/15 10:32:29, Tablet Start Date: 04/25/15 Stop Date: 05/25/15 Status: Ordered amLODIPine 10 mg oral tablet 10 mg, Tablet, By Mouth, 10/06/22 9:00:00 EDT Start Date: 10/06/22 Stop Date: 10/06/22 Status: Completed atorvastatin 20 mg oral tablet 1 tablet = 20 mg, By Mouth, Daily, Maintenance, 02/04/21 15:20:00 EDT, Tablet, Partial fill upon patient request if the prescription is for a schedule II opioid drug. Start Date: 02/04/21 Status: Ordered colchicine 0.6 mg oral tablet 0.6 mg, 1, tablet, By Mouth, Daily, Refills 0, Maintenance, 10/06/22 16:28:00 EDT, Partial [...] capsule, By Mouth, 2 times a day, # 120 capsule, Refills 0, Maintenance, 10/05/22 11:01:00 EDT, Partial fill upon patient request if the prescription is for a schedule II opioid drug. Start Date: 10/05/22 Status: Ordered gabapentin 300 mg oral capsule 300 mg, 1, capsule, By Mouth, Daily at bedtime, Refills 0, Maintenance, 02/09/21 13:15:00 EDT, Partial fill upon patient request if the prescription is for a schedule II opioid drug. Start Date: 02/09/21 Status: Ordered Radha-Tussin DM 10 mg-100 mg/5 mL oral liquid 10 mL, By Mouth, Every 6 hours, PRN Cough, 0 Refills, Maintenance, 10/05/22 11:06:00 EDT, Partial fill upon patient request if the prescription is for a schedule II opioid drug. Start Date: 10/05/22 Status: Ordered ibuprofen 600 mg oral tablet 600 mg, 1, tablet, By Mouth, 3 times a day, Refills 0, Maintenance, 10/06/22 16:28:00 EDT, Partial fill upon patient request if the prescription is for a schedule II opioid drug. Start Date: 10/06/22 Stop Date: 10/13/22 Status: Ordered melatonin 5 mg oral tablet [...] spray = 4 mg, Nares, Both, Once, 0 Refills, Maintenance, 10/05/22 11:06:00 EDT, Partial fill upon patientrequest if the prescription is for a schedule II opioid drug. Start Date: 10/05/22 Status: Ordered Narcan 4 mg/0.1 mL nasal spray = 4 mg, Nares, Both, Once, from first dose, 0 Refills, Maintenance, 10/05/22 [...] Start Date: 02/04/21 Status: Ordered Potassium Chloride (Wrs-Slqv-Qag M20) 20 mEq oral tablet, extended release 1 tablet = 20 mEq, By Mouth, Daily at bedtime, Maintenance, 02/04/21 15:17:00 EDT, Partial fill upon patient request if the prescription is for a schedule II opioid drug. Start Date: 02/04/21 Status: Ordered sertraline 50 mg oral tablet 1 tablet = 50 mg, By Mouth, Daily, # 30 tablet, 0 Refills, Maintenance, 10/05/22 11:14:00 EDT, Tablet, [...] opioid drug. Start Date: 02/04/21 Status: Ordered Vitamin D3 50,000 intl units oral capsule 1 capsule = 1,250 mcg, By Mouth, Every 30 days, On the 9th of every month, # 12 capsule, 0 Refills,Maintenance, 10/14/22 7:00:00 EDT, Capsule, Partial fill upon [...] Exam Date Time Procedure Performing Provider Status 10/06/22 6:27 AM Ribs 2 Views Left Eloisa Nieto; Yoandy ( Verified) Notes: (Ribs 2 Views Left) Reason For Exam: dementia, chest pain, rule out rib fx;Pain RESULT: Ribs 2 Views Left Ribs 2 Views Left 2 views Reason: Pain; dementia, chest pain, rule out rib fx; Clinical Question(s): Fracture COMPARISON: Multiple priors, most recent chest x-ray 10/05/2022. FINDINGS: LINES AND TUBES: None. LUNGS AND PLEURA: The right lung is partially imaged. Prominent interstitial markings bilaterally. Mildly prominent pulmonary vascularity. No left pleural effusion. No pneumothorax. HEART, MEDIASTINUM AND EVERTON: Unchanged. BONES: No acute fractures or bone lesions. SOFT TISSUES: Unremarkable IMPRESSION: 1. No evidence of acute displaced fracture. 2. Prominent interstitial markings bilaterally. Findings could represent mild pulmonary edema. I have personally reviewed the images and I agree with this report. WSN: [id number] Ordering Physician: Riley Stacy Dictated By: Brenda Kaba MD Dictated Date/Time: 10/06/22 10:11 a Reviewed By: Jami Long MD Signed By: Jami Long MD Signed Date/Time: 10/06/22 10:16 am Transcribed By: SHITAL Transcribed Date/Time: 10/06/22 10:02 am * Exam Date Time Procedure Performing Provider Status 10/05/22 1:49 AM Chest 2 Views Fronta l and Lat Regina Cervantes; Auth (Verified) Notes: (Chest 2 Views Frontal and Lat) Reason For Exam: Traumatic Chest Pain;Other: RESULT: Chest 2 Views Frontal and Lat Chest 2 Views Frontal and Lat Hx of Present Illness: Pt reports having 10 10 cp that started yesterday morning and has gotten worse.; Reason: Other:; Traumatic Chest Pain; Clinical Question(s): Other:; Pneumothorax, Fracture COMPARISON: None. FINDINGS: LINES AND TUBES: None. LUNGS AND PLEURA: Clear lungs. Normal pulmonary vascularity. No pleural effusion. No pneumothorax. HEART, MEDIASTINUM AND EVERTON: There is stable mild prominence of the cardiomediastinal silhouette. BONES AND SOFT TISSUES: No acute abnormality. IMPRESSION: Stable mild prominence of the cardiomediastinal silhouette. WSN: [id number] Ordering Physician: Hannah Horn Dictated By: Misty Ortiz MD Dictated Date/Time: 10/05/22 3:51 am Reviewed By: Misty Ortiz MD Signed By: Misty Ortiz MD Signed Date/Time: 10/05/22 3:51 am Transcribed By: SHITAL Transcribed Date/Time: 10/05/22 3:48 am Vital Signs Most recent to oldest [Reference Range]: 1 2 3 Weight 83.2 kg (10/05/22 9:59 AM) Oxygen Saturation [94-100 %] 93 % *L* (10/06/22 3:30 PM) 95 % (10/06/22 11:30 AM) 91 % *L* (10/06/22 11:27 AM) Pulse Rate [55-90 bpm] 89 bpm (10/06/22 3:30 PM) 67 bpm (10/06/22 11:27 AM) 79 bpm (10/06/22 7:53 AM) Blood Pressure [90-138/55-84 mm Hg] 145/62mm Hg *H* (10/06/22 3:30 PM) 125/55mm Hg (10/06/22 11:27 AM) 137/69mm Hg (10/06/22 9:22 AM) Respiratory Rate [16-30 br/min] 19 br/min (10/06/22 4:20 PM) 189 br/min *H* (10/06/22 3:30 PM) 18 br/min (10/06/22 11:27 AM) Temperature [96.8-100.4 DegF] 97.9 DegF (10/06/22 3:30 PM) 97.3 DegF (10/06/22 11:27 AM) 97.2 DegF (10/06/22 7:53 AM) Liters per Minute 2 L/min (10/06/22 11:30 AM) 2 L/min (10/06/22 7:53 AM) 2 L/min (10/06/22 4:05 AM) Mode of Delivery (Oxygen) Room air (10/06/22 3:30 PM) Nasal cannula (10/06/22 11:30 AM) Room air (10/06/22 11:27 AM) Blood pressure sites Arm, right (10/06/22 3:30 PM) Arm, right (10/06/22 11:27 AM) Arm, right (10/06/22 7:53 AM) Temperature Route Oral (10/06/22 3:30 PM) Oral (10/06/22 11:27 AM) Oral (10/06/22 7:53 AM) Weight Obtained Via Bed scale (10/05/22 9:59 AM) Social History Social History Type Response Smoking Status Never smoker entered on: 04/21/15 Sex Admission evaluation note * Tawanna TORRES, Riley Cox: PERFORM Event Display: Admission Note Authored Date: [id number] Patient: ??ROD CAMACHO ? Age:??87 Years?Sex:??Male?:??1935?? Chief Complaint/Reason for Consultation Pt comes from [facility] and rehab. Reports having 10/10 left sided cp. Pain does not radiate,feels worse on palpation, inspiration, and coughing. HX COPD. Facility gave 325 asa. History of Present Illness 87-year-old male Anguillan speaking only with history of vascular dementia, HFpEF,??permanent atrial fibrillation on Eliquis, PAD s/p R BKA, diabetes mellitus type 2??with diabetic foot ulcer, osteomyelitis, anemia of chronic disease who presented from his group home facility??with 10/10??left an terolateral chest??heaviness and congestion associated with movement, talking and deep breaths. This started??two??days ago and??worsened over the last two days.??He??did have a minor fall from a low??height out of bed two weeks ago but did not land on his chest or injure his ribs at that time.? He was given medications including??nitro with no relief and was sent to the ED for further evaluation. Initial workup showed an elevated HS troponin of 54 with a delta of -2. EKG showed atrial fibrillation without acute ischemia per my interpretation. Initial CXR without acute process. He was given Morphine with good effect and referred for further workup of chest pain. Review of Systems He c/o left sided chest pain (much better after morphine) worse with deep breaths, palpation or talking. No palpitations, fevers, chills, cough, shortness of breath, nausea, vomiting or diarrhea. Objective Vital Signs?? Temperature: 97.2 DegF (10/05/22 09:57:00) Temperature Route: Oral (10/05/22 09:57:00) Pulse Rate: 73 bpm (10/05/22 09:57:00) Respiratory Rate: 17 br/min (10/05/22 09:57:00) Systolic Blood Pressure: 120 mm Hg (10/05/22 09:57:00) Diastolic Blood Pressure: 63 mm Hg (10/05/22 09:57:00) Blood pressure sites: Arm, right (10/05/22 09:57:00) Mean Arterial Pressure: 82 mm Hg (10/05/22 09:57:00) Pulse Pressure: 57 mm Hg (10/05/22 09:57:00) Oxygen Saturation: 100 % (10/05/22 09:57:00) Liters per Minute: 1.5 L/min (10/05/22 09:57:00) Mode of Delivery (Oxygen): Nasal cannula (10/05/22 09:57:00) Early Warning Score: 2 (10/05/22 09:59:26) ? Intake/Output? No Data Available ? Physical Exam Temperature?97.2 ?(09:59) Systolic Blood Pressure?120 ?(09:59) Diastolic Blood Pressure?63 ?(09:59) Pulse?73 ?(09:59) SpO2?100 ?(09:59) Respiratory Rate?17 ?(09:59) ?? Constitutional: Alert, no acute distress. Mental Status: Oriented to person, month, year, situation but not to place. Respiratory: Clear to auscultation. No wheezing, rales or rhonchi. Cardiovascular: Regular rate and rhythm. No murmurs, rubs or gallops. Gastrointestinal: Abdomen soft, non-tender, non-distended. Normal bowel sounds. Genitourinary: No costovertebral angle tenderness. Neurologic: Cranial nerves II-XII grossly intact. No focal neurological deficits. Moves all extremities spontaneously. Skin: No rashes or lesions. Musculoskeletal: No cyanosis or clubbing. RLE BKA noted. Psychiatric: Normal mood and affect Extremities: Trace edema LLE. Assessment/Plan Assessment:??87-year-old male [place]guillan speaking only with history of vascular dementia, HFpEF, permanent atrial fibrillation on Eliquis, PAD s/p R BKA, diabetes mellitus type 2 with diabetic foot ulcer, osteomyelitis, anemia of chronic disease who presented from his group home facility with 10/10 left anterolateral chest heaviness and congestion associated with movement, talking and deep breaths.??EKG shows afib with PVCs, no acute ischemia and HS troponin chronically elevated with no significant delta. He is referred for observation and work up of chest pain. ?? Chest pain (R07.9):? Ruled out for ACS, no significant delta with HS Troponin (chronically elevated) and no evidence of ischemia on EKG. Differential includes pleurisy, musculoskeletal pain, rib fracture, PE, pericarditis. Check CXR rib series, d-dimer, ESR and CRP. Continue morphine for pain control. ?? Permanent atrial fibrillation (I48.21):? Continue home Eliquis, not on rate control meds. ?? (HFpEF) heart failure with preserved ejection fraction (I50.30):? Continue home Lasix. Does not appear volume overloaded. ?? Vascular dementia (F01.50) PAD (peripheral artery disease) (I73.9) S/P BKA (below knee amputation) (Z89.519):? Continue home Eliquis and Atorvastatin. S/p R BKA. ?? Type 2 diabetes mellitus (E11.9):? Continue home Metformin. ?? Code Status:??Full Code per [facility] on 08/11/22. ?? Discharge Planning:??Bed hold back at SNF, if XR negative and no signs of PE or pericarditis, d/c back to SNF in AM. ?? I spent a total of??80 minutes today reviewing the chart/medical records, speaking with the patient, formulating and discussing the treatment plan and documenting the findings and encounter. Discussed plan with patient with spanish linguist, nursing, daughter via phone. ?? Riley Stacy II PA-C Hospitalist Medicine PA Pager #[phone] or [employer] ? Histories Allergies Allergies ?(Active and Proposed [...] depressive disorder, recurrent episode with anxious distress Vascular dementia HFpEF Permanent atrial fibrillation PAD Diabetes mellitus type 2 ? Past Surgical History Right BKA ? Social History Tobacco Details:??Never smoker ? Family History No family history recorded. ? Medications Home Medications Acetaminophen (acetaminophen 325 mg oral tablet)?650?Milligram?2?tablet?By Mouth?Every 6 hours?as needed?as needed for fever/paiin Amlodipine (amLODIPine 10 mg oral tablet)?10?Milligram?By Mouth?Daily?for 30?Days apixaban (Eliquis 5 mg oral tablet)?1?tab(s)?5?Milligram?By Mouth?2 times a day Atorvastatin (atorvastatin 20 mg oral tablet)?1?tab(s)?20?Milligram?By Mouth?Daily Cholecalciferol (Vitamin D3 1000 intl units oral tablet)?1?tab(s)?25?Microgram?By Mouth?Daily Cholecalciferol (Vitamin D3 50,000 intl units oral capsule)?1?capsule?1,250?Microgram?By Mouth?Every 30 days?On the 9th of every month Ferrous Sulfate (ferrous sulfate 325 mg oral tablet)?1?tab(s)?325?Milligram?By Mouth?Every 48 hours Furosemide (furosemide 40 mg oral tablet)?40?Milligram?1?tablet?By Mouth?2 times a day Gabapentin (gabapentin 300 mg oral capsule)?300?Milligram?1?capsule?By Mouth?Daily at bedtime Gabapentin (gabapentin 100 mg oral capsule)?200?Milligram?2?capsule?By Mouth?2 times a day Guaifenesin/Dextromethorphan (Radha-Tussin DM 10 mg-100 mg/5 mL oral liquid)?10?Milliliter?By Mouth?Every 6 hours?as needed?Cough Melatonin (melatonin 5 mg oral tablet)?1?tab(s)?5?Milligram?By Mouth?Daily at bedtime Metformin (metFORMIN 500 mg oral tablet)?1?tab(s)?500?Milligram?By Mouth?Daily nalOXONE (Narcan 4 mg/0.1 mL nasal spray)?4?Milligram?Nares, Both?Once nalOXONE (Narcan 4 mg/0.1 mL nasal spray)?4?Milligram?Nares, Both?Once?from first dose Omeprazole (omeprazole 20 mg oral enteric coated capsule)?1?capsule?20?Milligram?By Mouth?Daily in AM Potassium Chloride (Potassium Chloride (Bvh-Zuds-Xna M20) 20 mEq oral tablet, extended release)?1?tab(s)?20?Milliequivalent?By Mouth?Daily at bedtime Sertraline (sertraline 50 mg oral tablet)?1?tab(s)?50?Milligram?By Mouth?Daily Tamsulosin (tamsulosin 0.4 mg oral capsule)?1?capsule?0.4?Milligram?By Mouth?Daily ? Inpatient Medications Medications (20) Active SCHEDULED: (12) Amlodipine 10 mg Tablet (amLODIPine 10 mg oral tablet) ??10 mg, By Mouth, Daily Apixaban 5 mg Tablet (Eliquis) ??5 mg, By Mouth, 2 times a day Atorvastatin 20 mg Tablet (atorvastatin 20 mg oral tablet) ??20 mg, By Mouth, Daily Furosemide 40 mg Tablet (furosemide 40 mg oral tablet) ??40 mg, By Mouth, 2 times a day Gabapentin 100 mg Capsule (gabapentin 100 mg oral capsule) ??200 mg, By Mouth, 2 times a day Gabapentin 300 mg Capsule (gabapentin 300 mg oral capsule) ??300 mg, By Mouth, Daily at bedtime Lidocaine 5% Topical Patch (Lidocaine 5% Patch) ??1 each, Topically, Daily Metformin 500 mg Tablet (metFORMIN 500 mg oral tablet) ??500 mg 1 each, By Mouth, Daily NaCl 0.9% Flush 3ml (NaCL 0.9% Flush) ??3 mL, IV Push, Every 8 hours Remove Patch (Remove Lidocaine Patch) ??1 each, Topically, Daily at bedtime Sertraline 50 mg Tablet (sertraline 50 mg oral tablet) ??50 mg, By Mouth, Daily Tamsulosin 0.4 mg Capsule (tamsulosin 0.4 mg oral capsule) ??0.4 mg, By Mouth, Daily CONTINUOUS: (0) PRN: (8) Acetaminophen 325 mg Tablet (Acetaminophen Tablet) ??650 mg, By Mouth, Every 4 hours Dextromethorphan-Guaifenesin 20 mg-200 mg/10 mL Liqu UD (Robitussin DM Liquid) ??10 mL, By Mouth, Every 4 hours Melatonin 3 mg Tablet (Melatonin Tablet) ??3 mg, By Mouth, Daily at bedtime MorPHINE 2 mg Inj Syringe (MorPHINE Inj) ??2 mg, IV Push Slowly, Every 5 minutes NaCl 0.9% Flush 3ml (NaCL 0.9% Flush) ??3 mL, IV Push, Every 8 hours Polyethylene Glycol 17 Gm Powder (MiraLax Powder) ??17 Gm 1 pack/packet, By Mouth, Daily Senna 8.6 mg / Docusate 50 mg tablet (Docusate/Senna Tablet) ??1 tablet, By Mouth, 2 times a day Simethicone 80 mg Chewable Tablet (Simethicone Tablet) ??80 mg, Chew, 3 times a day ? Results Recent Labs BLOOD COUNT & DIFF WBC 8.2 k/mm3 ()?? 10/05/2022 01:21 RBC 3.57 m/mm3 (Low)?? 10/05/2022 01:21 Hgb 8.6 Gm/dL (Low)?? 10/05/2022 01:21 Hct 28.8 % (Low)?? 10/05/2022 01:21 MCV 80.7 femtoliters ()?? 10/05/2022 01:21 MCH 24.1 pg (Low)?? 10/05/2022 01:21 MCHC 29.9 g/dL (Low)?? 10/05/2022 01:21 Platelet Count 203 k/mm3 ()?? 10/05/2022 01:21 RDW-SD 49.1 femtoliters (High)?? 10/05/2022 01:21 MPV 10.6 femtoliters ()?? 10/05/2022 01:21 Nucleated RBC (Automated) 0.0 #/100 WBC'S ()?? 10/05/2022 01:21 Abs. NRBC 0.0 k/mm3 ()?? 10/05/2022 01:21 Abs. Neut 5.3 k/mm3 ()?? 10/05/2022 01:21 Abs. Lymph 1.5 k/mm3 ()?? 10/05/2022 01:21 Abs. Beckham 0.9 k/mm3 ()?? 10/05/2022 01:21 Abs. Eo 0.4 k/mm3 ()?? 10/05/2022 01:21 Abs. Baso 0.1 k/mm3 ()?? 10/05/2022 01:21 Neut % 64.6 % ()?? 10/05/2022 01:21 Lymph % 18.7 % ()?? 10/05/2022 01:21 Beckham % 10.6 % (High)?? 10/05/2022 01:21 Eos % 5.4 % ()?? 10/05/2022 01:21 Baso % 0.6 % ()?? 10/05/2022 01:21 Imm Gran 0.1 % ()?? 10/05/2022 01:21 Abs. Imm Gran 0.0 k/mm3 ()?? 10/05/2022 01:21 ?? CARDIAC Nt-Probnp 723 pg/mL (High)?? 10/05/2022 01:21 High Sensitivity Troponin (HSTnT) 58 ng/L (Critical)?? 10/05/2022 07:54 ?? CHEM GENERAL Sodium 139 mmol/L ()?? 10/05/2022 01:21 Potassium 4.4 mmol/L ()?? 10/05/2022 01:21 Chloride 101 mmol/L ()?? 10/05/2022 01:21 Bicarbonate Level 25 mmol/L ()?? 10/05/2022 01:21 Anion Gap 13 ()?? 10/05/2022 01:21 Glucose Level 117 mg/dL (High)?? 10/05/2022 01:21 BUN 18 mg/dL ()?? 10/05/2022 01:21 Creatinine-Blood 1.1 mg/dL ()?? 10/05/2022 01:21 Estimated GFR Creatinine 69 ML/MIN/1.73 M2 ()?? 10/05/2022 01:21 Calcium 9.2 mg/dL ()?? 10/05/2022 01:21 ?? HEME OTHER Hold Blue Top SPECIMEN DISCARDED AFTER 4 HOURS. ()?? 10/05/2022 01:21 ?? VIROLOGY COVID-19 by RT-PCR NEGATIVE ()?? 10/05/2022 01:10 ? US Heart * Event Display: Echocardiogram - Complete Authored Date: Transthoracic Echocardiography Report (TTE) Patient Demographics Patient Name ROD CAMACHO Date of Study 10/06/2022 Corporate Gender Male Facility Race Ethnicity or Date of 1935 Height: 71.26 inches Age 87 year(s) Weight: 182.98 pounds Accession Number [id number] BSA: 2.04 m2 Room Number W373 BMI: 25.34 kg/m2 Referring Physician Tawanna Cox II PA Physician Carpenter Assembler Alissa Cavazos [facility] Indications Abnormal ECG. Additional Indications:Concern for pericardial effusion Clinical History Heart failure PAD Diabetes Mellitus. COPD Study Data Type of Study TTE procedure:Echo Complete-Doppler, Colorflow, M-Mode. Procedure Information:Probe #[id number] Study Date10/06/2022 Start Time: 12:28 PM Study Location: [facility] [place] Echo Study Status: Bedside Patient Status: Pending Discharge Technical Quality: Fair due to restricted mobility. Blood Pressure:126/56 mmHg EKG: Atrial fibrillation HR: 70 bpm 2D Measurements LV Diastolic Dimension: 4.9 cm LV Systolic Dimension: 2.4 cm LV Septum Diastolic: 1.1 cm LV PW Diastolic: 1 cm AO Root Dimension: 3.3 cm LA Dimension: 4.6 cm LA ESV (BP):120 ml LVOT Stroke Volume: 63.07 ml LA ESV Index: 59 ml/m2 Stroke Volume Index30.92 ml/m2 LVOT: 2.2 cm Cardiac Index:2.16 l/min/m2 Ascending Aorta:3.5 cm Doppler Measurements AV Peak Velocity: 135 cm/s MV Peak E-Wave: 149 cm/s AV Peak Gradient: 7.29 mmHg MV Peak A-Wave: 46.5 cm/s MV E/A Ratio: 3.2 LVOT Peak Velocity: 85.9 cm/s MV P1/2t: 42 msec LVOT VTI16.6 cm MV Deceleration Time: 143 msec TR Velocity:184 cm/s MV Area (PHT): 5.24 cm2 TR Gradient:13.54 mmHg PV Peak Velocity: 76 cm/s PV Peak Gradient: 2.31 mmHg Cardiac Anatomy Left Ventricle/Interventricular Septum The left ventricular size is normal. Left ventricular wall thickness is normal. Normal LV systolic function. Ejection fraction is 60-65%. There are no regional wall motion abnormalities. Unable to assess diastolic function due to atrial fibrillation . Left Atrium/Interatrial Septum The left atrium is dilated. Aortic Valve The aortic valve is trileaflet and normal in structure and function. There is no aortic stenosis or insufficiency. Mitral Valve The anterior leaflet is mildly thickened/calcified . There is mild prolapse of the anterior leaflet. There is mild mitral regurgitation. Aorta The aortic root is normal in size. There is mild dilation of the ascending aorta . Right Ventricle The right ventricular size and function appears grossly normal. Right Atrium The right atrium is dilated. Pulmonic Valve The pulmonic valve is poorly visualized. Tricuspid Valve The tricuspid valve is normal in structure and function. There is mild to moderate tricuspid regurgitation. Pumonary Artery The pulmonary artery systolic pressure estimation is 35-40 mmHg. Venous Structures The inferior vena cava appears mildly dilated. Inferior vena cava inspiratory collapse is normal . Pericardium/Extracardiac There is a trivial small pericardial effusion . There is an epicardial fat pad present. Summary The left ventricular size is normal. Left ventricular wall thickness is normal. Normal LV systolic function. Ejection fraction is 60-65%. There are no regional wall motion abnormalities. Unable to assess diastolic function due to atrial fibrillation . The aortic valve is trileaflet and normal in structure and function. There is no aortic stenosis or insufficiency. The anterior leaflet is mildly thickened/calcified . There is mild prolapse of the anterior leaflet. There is mild mitral regurgitation. The right ventricular size and function appears grossly normal. The tricuspid valve is normal in structure and function. There is mild to moderate tricuspid regurgitation. There is a trivial small pericardial effusion . There is an epicardial fat pad present. Comparison Comparison is made to the study of February 07, 2021. Technical differences limit comparison. Signature * Event Display: Echocardiogram - Complete Authored Date: [id number] Note * Event Display: Cardiac Rhythm Strips Authored Date: * Zulay Shook RN: PERFORM Event Display: Discharge/Transfer Note Hospital Authored Date: [id number] Nursing Discharge Note Entered On: 10/06/2022 17:05 EDT Performed On: 10/06/2022 17:02 EDT by Zulay Shook RN Nursing Discharge Note 2 Discharge Time : 10/06/2022 17:57 EDT Yu , [facility] - 10/06/2022 17:57 EDT Discharge Level of Care at Discharge : FDC facility Discharge Nursing Homes/Rehab Facilities : [facility] Patient Left Unit Via : Wheelchair Patient Accompanied Off Unit with : Ambulance/Chair Van Personnel Handover Given to Transport Personnel : Yes DC Instructions Provided & Signed by Pt : Unable Patient Understands D/C Instructions : Unable Patient Instructions Discharge Signed : No Discharge Comments : Patient being transferred to [facility]. Patient unable to receive nor retain discharge instructions at this time. Report given to ambulance staff. Dischargepaperwork with patient to be given to SNF Did Pt have Specialty Bed or Wound Vac : Molly Shook RN, Zulay - 10/06/2022 17:02 EDT * Dulce Beltran MD: PERFORM Event Display: Discharge/Transfer Note Hospital Authored Date: [id number] Patient: ??ROD CAMACHO ? Age:??87 Years?Sex:??Male?:??1935?? Patient Information Discharge Location: W3 Primary Care Physician: Alexa Barajas NP, V Admit Date/Time: 10/05/22 00:43 Discharge Disposition Discharge Disposition: Longterm Facility/Rehab Discharge Diagnosis (HFpEF) heart failure with preserved ejection fraction (I50.30) Chest pain (R07.9) PAD (peripheral artery disease) (I73.9) Permanent atrial fibrillation (I48.21) S/P BKA (below knee amputation) (Z89.519) Type 2 diabetes mellitus (E11.9) Vascular dementia (F01.50) ?? _ Discharge Medications Acetaminophen (acetaminophen 325 mg oral tablet)?650?Milligram?2?tablet?By Mouth?Every 6 hours?as needed?as needed for fever/paiin Amlodipine (amLODIPine 10 mg oral tablet)?10?Milligram?By Mouth?Daily?for 30?Days apixaban (Eliquis 5 mg oral tablet)?1?tab(s)?5?Milligram?By Mouth?2 times a day Atorvastatin (atorvastatin 20 mg oral tablet)?1?tab(s)?20?Milligram?By Mouth?Daily Cholecalciferol (Vitamin D3 1000 intl units oral tablet)?1?tab(s)?25?Microgram?By Mouth?Daily Cholecalciferol (Vitamin D3 50,000 intl units oral capsule)?1?capsule?1,250?Microgram?By Mouth?Every 30 days?On the 9th of every month Colchicine (colchicine 0.6 mg oral tablet)?0.6?Milligram?1?tablet?By Mouth?Daily?for 90?Days Ferrous Sulfate (ferrous sulfate 325 mg oral tablet)?1?tab(s)?325?Milligram?By Mouth?Every 48 hours Furosemide (furosemide 40 mg oral tablet)?40?Milligram?1?tablet?By Mouth?2 times a day Gabapentin (gabapentin 300 mg oral capsule)?300?Milligram?1?capsule?By Mouth?Daily at bedtime Gabapentin (gabapentin 100 mg oral capsule)?200?Milligram?2?capsule?By Mouth?2 times a day Guaifenesin/Dextromethorphan (Radha-Tussin DM 10 mg-100 mg/5 mL oral liquid)?10?Milliliter?By Mouth?Every 6 hours?as needed?Cough Ibuprofen (ibuprofen 600 mg oral tablet)?600?Milligram?1?tablet?By Mouth?3 times a day?for 7?Days Melatonin (melatonin 5 mg oral tablet)?1?tab(s)?5?Milligram?By Mouth?Daily at bedtime Metformin (metFORMIN 500 mg oral tablet)?1?tab(s)?500?Milligram?By Mouth?Daily nalOXONE (Narcan 4 mg/0.1 mL nasal spray)?4?Milligram?Nares, Both?Once nalOXONE (Narcan 4 mg/0.1 mL nasal spray)?4?Milligram?Nares, Both?Once?from first dose Omeprazole (omeprazole 20 mg oral enteric coated capsule)?1?capsule?20?Milligram?By Mouth?Daily in AM Potassium Chloride (Potassium Chloride (Orn-Qzdc-Nhy M20) 20 mEq oral tablet, extended release)?1?tab(s)?20?Milliequivalent?By Mouth?Daily at bedtime Sertraline (sertraline 50 mg oral tablet)?1?tab(s)?50?Milligram?By Mouth?Daily Tamsulosin (tamsulosin 0.4 mg oral capsule)?1?capsule?0.4?Milligram?By Mouth?Daily ? Allergies Allergies ?(Active and Proposed Allergies Only) doxycycline? (Severity: Unknown severity, Onset: Unknown) Other Food Allergy? (Severity: Unknown severity, Onset: Unknown) ?Reactions: Sardines canned in brine Bee Stings? (Severity: Unknown severity, Onset: Unknown) ?Reactions: Sardines canned in brine ? Hospital Course 87-year-old male [place] speaking only with history of vascular dementia, HFpEF, permanent atrial fibrillation on Eliquis, PAD s/p R BKA, diabetes mellitus type 2 with diabetic foot ulcer, osteomyelitis, anemia of chronic disease who presented from his group home facility with 10/10 left anterolateral chest heaviness and congestion associated with movement, talking and deep breaths.??EKG shows afib with PVCs, no acute ischemia and HS troponin chronically elevated with no significant delta.He is referred for observation and work up of chest pain. ?? Chest pain (R07.9):??Improved Ruled out for ACS, no significant delta with HS Troponin (chronically elevated) and no evidence of ischemia on EKG. Differential includes pleurisy, musculoskeletal pain, rib fracture, PE, pericarditis. Check CXR rib series, d-dimer, ESR and CRP. Patient was seen and examined with the help of??[facility] pipelines No new fracture seen on x-ray.?? D-dimer low.?? ESR and CRP??high.?? Echo showed mild pericardial effusion,??which??could be the reason for his chest pain.?? We will start him on??guideline directed therapy??colchicine for 3 months and??ibuprofen for 1 to 2 weeks.?? I have called his healthcare proxy??Gerald Camacho??and discussed the finding, treatment, side effects??and alternatives.?? She agreed with treatment Patient will need repeat echo 1 to 3 months??and follow-up with PCP/transport coordinator ? Permanent atrial fibrillation (I48.21):? Continue home Eliquis, not on rate control meds. ?? (HFpEF) heart failure with preserved ejection fraction (I50.30):? Continue home Lasix. Does not appear volume overloaded. ?? Vascular dementia (F01.50) PAD (peripheral artery disease) (I73.9) S/P BKA (below knee amputation) (Z89.519):? Continue home Eliquis and Atorvastatin. S/p R BKA. ?? Type 2 diabetes mellitus (E11.9):? Continue home Metformin. ?? support group manager was informed about discharge plan Objective Assessment and Plan ? Measurements?? Weight: 83.2 kg (10/05/22) ?? Vital Signs?? Temperature: 97.9 DegF (10/06/22 15:30:00) Temperature Route: Oral (10/06/22 15:30:00) Pulse Rate: 89 bpm (10/06/22 15:30:00) Respiratory Rate: 19 br/min (10/06/22 16:20:00) Systolic Blood Pressure:??145 mm Hg??High (10/06/22 15:30:00) Diastolic Blood Pressure: 62 mm Hg (10/06/22 15:30:00) Blood pressure sites: Arm, right (10/06/22 15:30:00) Mean Arterial Pressure: 90 mm Hg (10/06/22 15:30:00) Pulse Pressure: 83 mm Hg (10/06/22 15:30:00) Oxygen Saturation:??93 %??Low (10/06/22 15:30:00) Liters per Minute: 2 L/min (10/06/22 11:30:00) Mode of Delivery (Oxygen): Room air (10/06/22 15:30:00) Early Warning Score: 4 (10/06/22 16:20:18) ? . Physical Exam Constitutional: Alert, no acute distress. Respiratory: Clear to auscultation. No wheezing, rales or rhonchi. Cardiovascular: Regular rate and rhythm. No murmurs, rubs or gallops. Gastrointestinal: Abdomen soft, non-tender, non-distended. Normal bowel sounds. Genitourinary: No costovertebral angle tenderness. Neurologic: Cranial nerves II-XII grossly intact. No focal neurological deficits. Moves all extremities spontaneously. Skin: No rashes or lesions. Musculoskeletal: No cyanosis or clubbing. RLE BKA noted. Pending Results No Pending Results Follow-Up Appointments Added Follow Up ?Time Frame ?Comments Alexa Barajas NP, V Patient Instructions -??You have mild fluid around the heart,??which can be the cause of??chest pain.?? Please take ibuprofen and colchicine as prescribed.?? We will need to check??kidney function??every week??while??in the treatment.?? If kidney function worsen??need to stop??this treatments. -We will need repeat echo??in 1 to 3-month -Please follow-up with PCP/transport coordinator in??1 to 2-week Post Discharge Care Discharge ?10/06/22 16:28:00 EDT Home Health Face to Face ^HomeHealthFTF Results Discharge Labs BLOOD COUNT & DIFF WBC 5.0 k/mm3 ()?? 10/06/2022 04:09 RBC 3.20 m/mm3 (Low)?? 10/06/2022 04:09 Hgb 7.9 Gm/dL (Low)?? 10/06/2022 04:09 Hct 26.0 % (Low)?? 10/06/2022 04:09 MCV 81.3 femtoliters ()?? 10/06/2022 04:09 MCH 24.7 pg (Low)?? 10/06/2022 04:09 MCHC 30.4 g/dL (Low)?? 10/06/2022 04:09 Platelet Count 191 k/mm3 ()?? 10/06/2022 04:09 RDW-SD 49.6 femtoliters (High)?? 10/06/2022 04:09 MPV 10.0 femtoliters ()?? 10/06/2022 04:09 Nucleated RBC (Automated) 0.0 #/100 WBC'S ()?? 10/06/2022 04:09 Abs. NRBC 0.0 k/mm3 ()?? 10/06/2022 04:09 Abs. Neut 2.4 k/mm3 ()?? 10/06/2022 04:09 Abs. Lymph 1.5 k/mm3 ()?? 10/06/2022 04:09 Abs. Beckham 0.6 k/mm3 ()?? 10/06/2022 04:09 Abs. Eo 0.4 k/mm3 ()?? 10/06/2022 04:09 Abs. Baso 0.0 k/mm3 ()?? 10/06/2022 04:09 Neut % 49.1 % ()?? 10/06/2022 04:09 Lymph % 30.2 % ()?? 10/06/2022 04:09 Beckham % 11.9 % (High)?? 10/06/2022 04:09 Eos % 7.8 % (High)?? 10/06/2022 04:09 Baso % 0.6 % ()?? 10/06/2022 04:09 Imm Gran 0.4 % ()?? 10/06/2022 04:09 Abs. Imm Gran 0.0 k/mm3 ()?? 10/06/2022 04:09 ?? CARDIAC Nt-Probnp 723 pg/mL (High)?? 10/05/2022 01:21 High Sensitivity Troponin (HSTnT) 58 ng/L (Critical)?? 10/05/2022 07:54 ?? CHEM GENERAL Sodium 138 mmol/L ()?? 10/06/2022 04:09 Potassium 4.2 mmol/L ()?? 10/06/2022 04:09 Chloride 99 mmol/L ()?? 10/06/2022 04:09 Bicarbonate Level 31 mmol/L (High)?? 10/06/2022 04:09 Anion Gap 8 ()?? 10/06/2022 04:09 Glucose Level 109 mg/dL (High)?? 10/06/2022 04:09 BUN 18 mg/dL ()?? 10/06/2022 04:09 Creatinine-Blood 1.0 mg/dL ()?? 10/06/2022 04:09 Estimated GFR Creatinine 70 ML/MIN/1.73 M2 ()?? 10/06/2022 04:09 Calcium 8.9 mg/dL ()?? 10/06/2022 04:09 C-Reactive Protein 1.0 mg/dL (High)?? 10/05/2022 01:21 ? COAG D-Dimer 0.52 mg/L FEU ()?? 10/05/2022 13:00 ? HEME OTHER Sed Rate 51 mm/hr (High)?? 10/05/2022 01:21 Hold Blue Top SPECIMEN DISCARDED AFTER 4 HOURS. ()?? 10/05/2022 01:21 ?? VIROLOGY COVID-19 by RT-PCR NEGATIVE ()?? 10/05/2022 01:10 ? 40_ minutes spent on discharge * Yu , Haylie: PERFORM, MODIFY Event Display: Patient Education/Instruction Authored Date: Inpatient Adult Discharge Instructions [place] [id number] Name: ROD CAMACHO : 1935 Visit: 10/05/2022 00:43:00 Current Date: 10/06/2022 16:39 Account: [id number] Inpatient Adult Discharge Instructions We would like [...] and their families. Surveys are administered by [employer] ?? If further treatment with your primary care physician or another doctor is recommended, it is important for you to keep the appointment. Call your primary care physician or return to the Emergency Department immediately if your condition worsens, fails to improve, or new symptoms develop. If you need to find a doctor, you can call [facility] for a referral at [phone] or toll free at [phone] ([phone]) or log in to [email or web address].. ?? You can view and manage your care through the patient portal or by using a health care jose of your choosing. [employer] is a website that allows you to securely view your medical information including your hospital discharge summary, office visit summaries, medications and follow-up visits. You can also request appointments, renew medications, and request access to your medical information using a health care jose of your choosing, or just ask a question. You can enroll at [email or web address] or register during your next office visit. You have been discharged from [facility], Patient Care Unit: W3. If you have any questions regarding these instructions after you leave, please call us and we will be happy to assist you. [facility] Your Care Team Attending Physician Dulce Beltran MD Discharging Providers Dulce Beltran MD Reason for Your Visit Pt comes from [facility] and rehab. Reports having 10/10 left sided cp. Pain does not radiate,feels worse on palpation, inspiration, and coughing. HX COPD. Facility gave 325 asa. Your Diagnosis (HFpEF) heart failure with preserved ejection fraction Chest pain PAD (peripheral artery disease) Permanent atrial fibrillation S/P BKA (below knee amputation) Type 2 diabetes mellitus Vascular dementia Tests Performed Below is a partial list of the tests performed during your hospitalization. You may have had other tests and procedures not included in this list. Please discuss all test results with your provider. B Type Natriuretic Peptide Basic Metabolic Panel C-REACTIVE PROTEIN CBC w/ Differential COVID-19 (Novel Coronavirus), Rapid PCR D Dimer High??Sensitivity??Troponin T Hold Blue Top Tube SEDIMENTATION RATE,AUTOMATED XR Chest 2 Views Frontal and Lat XR Ribs 2 Views Left Primary Care Provider Alexa Barajas NP, V Advance Directive . Discharge Vitals Temperature: 97.9 DegF Weight: 83.2 kg Pulse Rate: 89 bpm ?? Respiratory Rate: 19 br/min ?? Systolic Blood Pressure:??145 mm Hg??High ?? Diastolic Blood Pressure: 62 mm Hg ?? Oxygen Saturation:??93 %??Low ?? Studies Pending All tests and labs ordered during this hospital stay have been completed unless listed below. Please discuss all pending results with your provider listed above in these instructions. ?? No incomplete studies found What to do next Instructions From Your Doctor -??You have mild fluid around the heart,??which can be the cause of??chest pain.?? Please take ibuprofen and colchicine as prescribed.?? We will need to check??kidney function??every week??while??in the treatment.?? If kidney function worsen??need to stop??this treatments. -We will need repeat echo??in 1 to 3-month -Please follow-up with PCP/transport coordinator in??1 to 2-week Discharge Orders You Need to Schedule the Following Appointments Follow Up with??Alexa Barajas NP, V When?? Where: [address] [facility] [address] [facility], [facility] [place] [address]- Discharge Medications LEANDRAROD :1935 Visit Date:10/05/2022 Medications: Please continue your medications until treatment is completed or stopped by your provider. Medications not listed below should be discontinued. Discuss any questions related to medications with your provider. What How Much When Instructions Next Dose New Colchicine (colchicine 0.6 mg oral tablet) 1 tab(s) Oral Daily Duration: 90 Days not given this admission New Ibuprofen (ibuprofen 600 mg oral tablet) 1 tab(s) Oral 3 times a day Duration: 7 Days not given this admission Unchanged Acetaminophen (acetaminophen 325 mg oral tablet) 2 tab(s) Oral Every 6 hours as needed for as needed for fever/paiin as needed Unchanged Amlodipine (amLODIPine 10 mg oral tablet) 10 Milligram Oral Daily Duration: 30 Days 10/06/22 @921 Unchanged apixaban (Eliquis 5 mg oral tablet) 1 tab(s) Oral Twice a day 10/06/22 @921 Unchanged Atorvastatin (atorvastatin 20 mg oral tablet) 1 tab(s) Oral Daily 10/06/22 @921 Unchanged Cholecalciferol (Vitamin D3 1000 intl units oral tablet) 1 tab(s) Oral Daily Unchanged Cholecalciferol (Vitamin D3 50,000 intl units oral capsule) 1 capsule Oral Every 30 days On the of every month ?? resume Unchanged Ferrous Sulfate (ferrous sulfate 325 mg oral tablet) 1 tab(s) Oral Every 48 hours resume Unchanged Furosemide (furosemide 40 mg oral tablet) 1 tab(s) Oral Twice a day 10/06/22 Unchanged Gabapentin (gabapentin 100 mg oral capsule) 2 capsule Oral Twice a day 10/06/22 Unchanged Gabapentin (gabapentin 300 mg oral capsule) 1 capsule Oral Daily at Bedtime 10/05/22 Unchanged Guaifenesin/ Dextromethorphan (Radha-Tussin DM 10 mg-100 mg/ 5 mL oral liquid) 10 Milliliter Oral Every 6 hours as needed for Cough resume Unchanged Melatonin (melatonin 5 mg oral tablet) 1 tab(s) Oral Daily at Bedtime resume Unchanged Metformin (metFORMIN 500 mg oral tablet) 1 tab(s) Oral Daily resume Unchanged nalOXONE (Narcan 4 mg/ 0.1 mL nasal spray) 4 Milligram Nares, Both Once Unchanged nalOXONE (Narcan 4 mg/ 0.1 mL nasal spray) 4 Milligram Nares, Both Once from first dose ?? Unchanged Omeprazole (omeprazole 20 mg oral enteric coated capsule) 1 capsule Oral Daily in the morning 10/06/22921 Unchanged Potassium Chloride (Potassium Chloride (Kdl-Fkrw-Akz M20) 20 mEq oral tablet, extended release) 1 tab(s) Oral Daily at Bedtime resume Unchanged Sertraline (sertraline 50 mg oral tablet) 1 tab(s) Oral Daily 10/06/22 @ 0922 Unchanged Tamsulosin (tamsulosin 0.4 mg oral capsule) 1 capsule Oral Daily 10/06/22 @ 0922 Test Results Below is a partial list of the most recent Laboratory test results done prior to this discharge. You may have had other tests and procedures not included in this list. Please discuss all test resultswith your provider. B Type Natriuretic Peptide (10/05/2022) ???Nt-Probnp - 723 pg/mL Basic Metabolic Panel (10/06/2022) ???Sodium - 138 mmol/L???Potassium - 4.2 mmol/L???Chloride - 99 mmol/L???Bicarbonate Level - 31 mmol/L???Anion Gap - 8???Glucose Level - 109 mg/dL???BUN - 18 mg/dL???Creatinine-Blood - 1.0 mg/dL???Estimated GFR Creatinine - 70 ML/MIN/1.73 M2???Calcium - 8.9 mg/dL C-REACTIVE PROTEIN (10/05/2022) ???C-Reactive Protein - 1.0 mg/dL CBC w/ Differential (10/06/2022) ???WBC - 5.0 k/mm3???RBC - 3.20 m/mm3???Hgb - 7.9 Gm/dL???Hct - 26.0 %???MCV - 81.3 femtoliters???MCH - 24.7 pg???MCHC - 30.4 g/dL???Platelet Count - 191 k/mm3???RDW-SD - 49.6 femtoliters???MPV - 10.0 femtoliters???Nucleated RBC (Automated) - 0.0 #/100 WBC'S???Abs. NRBC - 0.0 k/mm3???Abs. Neut - 2.4 k/mm3???Abs. Lymph - 1.5 k/mm3???Abs. Beckham - 0.6 k/mm3???Abs. Eo - 0.4 k/mm3???Abs. Baso - 0.0 k/mm3???Neut % - 49.1 %???Lymph % - 30.2 %???Beckham % - 11.9 %???Eos % - 7.8 %???Baso % - 0.6 %???Imm Gran - 0.4 %???Abs. Imm Gran - 0.0 k/mm3 COVID-19 (Novel Coronavirus), Rapid PCR (10/05/2022) ???COVID-19 by RT-PCR - NEGATIVE D Dimer (10/05/2022) ???D-Dimer - 0.52 mg/L FEU High??Sensitivity??Troponin T (10/05/2022) ???High Sensitivity Troponin (HSTnT) - 58 ng/L Hold Blue Top Tube (10/05/2022) ???Hold Blue Top - SPECIMEN DISCARDED AFTER 4 HOURS. SEDIMENTATION RATE,AUTOMATED (10/05/2022) ???Sed Rate - 51 mm/hr Allergies (NKA means No Known Allergies) Bee [...] fully understand and agree that [facility] accepts no responsibility for all my [...] Belonging List: With witness Possessions released to: No medical devices Date for Pt to Sign Valuables/Belongings: 10/05/22 10:13:00 ?? Other Discharge Information ? Case Management Discharge Plan?? Discharge Plan?? Discharge Agency Information?? Discharge Level of Care at Discharge: [facility] facility Service Categories #1: Physical Therapy, Longterm Discharge Transportation Arranged: [facility] [address] [facility] ??[phone] Service Comments #1: The ambulance will be here at 5PM to take you vack to [facility] Mode of Transportation Arranged: Ambulance Name of Person Notified of Transfer: Gerald [phone] Discharge Arranged Transport Date/Time: 10/06/22 17:00:00 ?? Discharge Nursing Homes/Rehab Facilities: [facility] ? Pulmonary Rehab Status?? Pulmonary Rehab Discharge Status?? Respiratory Rate: 19 br/min ? Common Emergency Awareness Tips IS [...] are strongly encouraged to quit. Please call [employer] at [phone] or [phone] ([phone]) or log in to [email or web address] for referrals to smoking cessation programs. ?? 988 Suicide & Crisis Lifeline is available 29/12 if you or someone you know needs to find a reason to keep living. By calling 988 you'll be connected to a skilled, trained counselor at a crisis center in your area. INPATIENT DISCHARGE INSTRUCTIONS SIGNATURE PAGE ROD CAMACHO Location:[facility] Registration Date and Time:10/05/2022 00:43 EDT Primary Care Physician: Alexa Barajas NP, V, I LEANDRAROD, have received the above patient education materials/instructions and have verbalized understanding. If ambulance or transport services are being used I further acknowledge being given a choice of service. ?? If you need to contact me, please call me at this number: . Patient/Form Raiser Name: Patient/Form Raiser Signature: Relationship to Patient: Witness Name/Signature: Date: * Haylie Yu: PERFORM Event Display: Patient Education Leaflets Authored Date: [id number] Chest Pain, Uncertain Cause ?? [id number] Causas inciertas de dolor de pecho El dolor de pecho puede producirse por numerosas razones. En algunos casos, no se puede determinar la causa. Si peacock afecci??n no parece grave y el dolor no parece venir del coraz??n, peacock proveedor de atenci??n m??dica puede recomendar un seguimiento de cerca. A veces, los signos de un problema grave tardan m??s en aparecer. Muchas afecciones no relacionadas con el coraz??n pueden causar dolor de pecho. Por ejemplo: ??? Musculoesquel??sunita. Costocondritis, giovanni inflamaci??n de los tejidos alrededor de las costillas que puede ocurrir por trauma o lesiones por uso excesivo, o giovanni distensi??n de los m??sculos de lapared tor??cica. ??? Respiratorias. Neumon??a, pulm??n colapsado (neumot??rax) o inflamaci??n del re vestimiento del pecho y los pulmones (pleuritis). ??? Gastrointestinales. Reflujo esof??gico, acidez estomacal, ??lceras o enfermedad de la ves??cula biliar. ??? Ansiedad y ataques de p??mavis ??? Compresi??n e inflamaci??n de un nervio ??? Afecciones poco frecuentes mendoza aneurisma a??rtico o disecci??n a??rtica (giovanni hinchaz??n de la arteria gio que sale del coraz??n o un desgarro en la pared de la arteria) o embolia pulmonar (co??gulos de kelley en los pulmones). Cuidados en el hogar Luego de peacock visita, preste atenci??n a las siguientes recomendaciones: ??? Descanse hoy y evite toda actividad agotadora. ??? Gates el medicamento recetado seg??n le hayan indicado. ??? Est?? atento acualquier dolor de pecho recurrente y observe cualquier cambio ?? Visita de seguimiento Programe giovanni visita de control con peacock proveedor de atenci??n m??dica si no empieza a sentirse mejoren las siguientes 24??horas, o seg??n lo que le indiquen. ?? Cu??ndo llamar al?? 911 Llame al?? 911 si ocurre algo de lo siguiente: ??? Cambio en el tipo de dolor: se siente diferente,se scott vuelto m??s grave, dura m??s o comienza a esparcirse hacia el hombro, el brazo, el maikol, lamand??bula o la espalda ??? Falta de aire o dolor creciente al respirar ??? Debilidad, mareos o desmayos ??? Ritmo card??aco acelerado ??? Sensaci??n de aplastamiento en el pecho ??? Tos con cantidadabundante de kelley ?? Cu??ndo buscar atenci??n m??dica Llame a peacock proveedor de atenci??n m??dica de inmediato ante cualquiera de los siguientes signos o s??ntomas: ??? Tos con expulsi??n de esputo (flema) de color oscuro o con un poco de kelley ??? Fiebre de 100.4?F (38?C) o superior, o seg??n le haya indicado peacock proveedor de atenci??n m??dica ??? Dolor, enrojecimiento o hinchaz??n de giovanni pierna ?? Last Reviewed Date: 2021 ?? [id number] [employer]. Todos los derechos reservados. Esta informaci??n no pretende sustituir la atenci??n m??dica profesional. S??lo peacock m??dico puede diagnosticar y tratar un problema de megan. ?? * [employer] , CIS S: TRANSCRIBE Misty Ortiz MD O: VERIFY Event Display: Result: Authored Date: [id number] Chest 2 Views Frontal and Lat Hx of Present Illness: Pt reports having 10 10 cp that started yesterday morning and has gotten worse.; Reason: Other:; Traumatic Chest Pain; Clinical Question(s): Other:; Pneumothorax, Fracture COMPARISON: None. FINDINGS: LINES AND TUBES: None. LUNGS AND PLEURA: Clear lungs. Normal pulmonary vascularity. No pleural effusion. No pneumothorax. HEART, MEDIASTINUM AND EVERTON: There is stable mild prominence of the cardiomediastinal silhouette. BONES AND SOFT TISSUES: No acute abnormality. IMPRESSION: Stable mild prominence of the cardiomediastinal silhouette. WSN: [id number] Ordering Physician: Hannah Horn Dictated By: Misty Ortiz MD Dictated Date/Time: 10/05/22 3:51 am Reviewed By: Misty Ortiz MD Signed By: Misyt Ortiz MD Signed Date/Time: 10/05/22 3:51 am Transcribed By: SHITAL Transcribed Date/Time: 10/05/22 3:48 am Hospital Progress note * Zulay Shook RN: PERFORM, SIGN, VERIFY Event Display: Progress Note Hospital Authored Date: [id number] Patient: ROD CAMACHO Age: 87 years Sex: Male : 1935 Associated Diagnoses: None Author: Zulay Shook RN Findings Problem Related to Alteration in Cardiac Function (new) : Alteration in Cardiac Function/new 10/06/2022 11:00 EDT Alteration in Cardiac Status Related to ACS Goals & Outcomes, Cardiac Status Pt will resume/maintain adequate cardiac output, Pt will resume/maintain adequate hemodynamic status, Pt will resume/maintain adequate respiratory function, Pt will resume/maintain intact neuro function, Pt will maintain adequate GI/ function appropriate for pt Cardiac Interventions Implemented Assess/monitor neuro status, Assess/monitor respiratory status, Monitor & document daily weight, Turn & reposition Q2 hours per activity restrictions Goals/Interventions, Cardiac Yes Cardiac, Problem Start 10/05/2022 13:50 Reviewed Plan with, Cardiac Status Patient Patient Progression, Cardiac Status Plan Initiation Comment: Cardiac Status patient unable to receive and retain any education at this time . Alteration in Neurological : Alteration in Neurological Function/new 10/06/2022 11:00 EDT Alteration in Neuro status Related to Alzheimer's/Dementia Goals & Outcomes, Neurological Pt is safe with transfers & activities, Pt will be discharged without infection, Pt will maintain intact skin integrity, Pt will remain free from injury, Pt/caregiver will receive psychosocial support as needed, Pt/caregiver will state understanding of rehab plan, Pt/caregiver will state strategies to reduce risk factors, Pt/caregiver will state understanding of disease process, Pt/caregiver will state understanding of the D/C plan Interventions, Neurological Assess/monitor neurologic status, Assess/monitor VS per unit standards & prn Goals/Interventions, Neurological Yes Neurological, Problem Start 10/06/2022 11:30 Reviewed plan with, Neurological Patient Patient Progression, Neurological Plan Initiation Comment: Neurological patient unable to receive and retain any education at this time . Nursing Data Vital Signs : VITAL SIGNS SECTION 10/06/2022 16:20 EDT Early Warning Score 4.00 10/06/2022 16:20 EDT Respiratory Rate 19 br/min 10/06/2022 15:31 EDT Early Warning Score 7.00 10/06/2022 15:30 EDT Temperature 97.9 DegF Temperature Route Oral Pulse Rate 89 bpm Respiratory Rate 189 br/min H Systolic Blood Pressure 145 mm Hg H Diastolic Blood Pressure 62 mm Hg Blood pressure sites Arm, right Mean Arterial Pressure 90 mm Hg Pulse Pressure 83 mm Hg Oxygen Saturation 93 % L Mode of Delivery (Oxygen) Room air 10/06/2022 15:01 EDT Early Warning Score 4.00 10/06/2022 11:31 EDT Early Warning Score 4.00 10/06/2022 11:30 EDT Oxygen Saturation 95 % Liters per Minute 2 L/min Mode of Delivery (Oxygen) Nasal cannula 10/06/2022 11:28 EDT Early Warning Score 4.00 10/06/2022 11:27 EDT Temperature 97.3 DegF Temperature Route Oral Pulse Rate 67 bpm Respiratory Rate 18 br/min Systolic Blood Pressure 125 mm Hg Diastolic Blood Pressure 55 mm Hg Blood pressure sites Arm, right Mean Arterial Pressure 78 mm Hg Pulse Pressure 70 mm Hg Oxygen Saturation 91 % L Mode of Delivery (Oxygen) Room air 10/06/2022 11:26 EDT Early Warning Score 2.00 10/06/2022 11:26 EDT Respiratory Rate 19 br/min 10/06/2022 11:15 EDT Respiratory Rate Not Done: see comment (Not Done) Respiratory Rate Not Done: see comment (Not Done) 10/06/2022 11:11 EDT Early Warning Score 2.00 10/06/2022 10:06 EDT Respiratory Rate 18 br/min 10/06/2022 9:37 EDT Early Warning Score 2.00 10/06/2022 9:36 EDT Respiratory Rate 18 br/min 10/06/2022 9:28 EDT Early Warning Score 2.00 10/06/2022 9:28 EDT Early Warning Score 2.00 10/06/2022 9:22 EDT Respiratory Rate 19 br/min Systolic Blood Pressure 137 mm Hg Diastolic Blood Pressure 69 mm Hg 10/06/2022 9:00 EDT Oxygen Saturation 97 % Mode of Delivery (Oxygen) Room air 10/06/2022 7:53 EDT Early Warning Score 2.00 10/06/2022 7:53 EDT Temperature 97.2 DegF Temperature Route Oral Pulse Rate 79 bpm Respiratory Rate 18 br/min Systolic Blood Pressure 137 mm Hg Diastolic Blood Pressure 69 mm Hg Blood pressure sites Arm, right Mean Arterial Pressure 92 mm Hg Pulse Pressure 68 mm Hg Oxygen Saturation 96 % Liters per Minute 2 L/min Mode of Delivery (Oxygen) Nasal cannula . Evaluation Patient resting in his bed at this time and is alert to person, place and to time. Patient interactive and cooperative with his care and is able to make his needs known through biological lab technician services. Patient has complaints of pain at left arm but is unable to describe the pain in addition to being unable to point to where on his arm he is hurting. Patient is unable to receive education, forgettingconversations immediately after they occurred. Patient continues to remain incontinent of urine andstool. Patient's brief checked regularly and hourly rounding performed to ensure that patient's needs are being met. Patient has developed a dry, occasional cough that was treated today with PRN robit ussin. Patient's son at the bedside at this time. Patient has no further requests or concerns at this time. Plan of care ongoing. Zulay Shook RN. * Ibeth Alva RN: PERFORM, SIGN, VERIFY Event Display: Progress Note Hospital Authored Date: Patient: ROD CAMACHO Age: 87 years Sex: Male : 1935 Associated Diagnoses: None Author: Ibeth Alva RN Findings Problem Related to Alteration in Cardiac Function (new) : Alteration in Cardiac Function/new 10/05/2022 22:00 EDT Alteration in Cardiac Status Related to ACS Goals & Outcomes, Cardiac Status Pt will resume/maintain adequate cardiac output, Pt will resume/maintain adequate hemodynamic status, Pt will resume/maintain adequate respiratory function, Pt will resume/maintain intact neuro function, Pt will maintain adequate GI/ function appropriate for pt Cardiac Interventions Implemented Assess/monitor cardiac status, Assess/monitor neuro status, Assess/monitor respiratory status, Document & Monitor O2 Sats; Administer O2 as ordered, If no bowel movement in 3 days activate bowel regime, Monitor & document daily weight, Monitor anticoagulation values BH Goals/Interventions, Cardiac Yes Cardiac, Problem Start 10/05/2022 13:50 Reviewed Plan with, Cardiac Status Patient Patient Progression, Cardiac Status Plan Initiation . Evaluation Patient is [place]guill[place] speaking, hard of hearing, A+Ox self and place, vital signs stable, denies any chest pain, sob, nausea. Patient is on a telemonitor reading a-fib with occasional bradycardia. Pt also experienced two pauses. manager call provider was Lungs with some crackles bilaterally to auscultation, on 2l nasal cannula. Positive bowel sounds. Abdomen is soft and non tender, unknown when last bowel movement . Denies dysuria or any urinary concerns. Patient is incontinent of both. Skin intact. 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 +2 edema noted to left lower leg. Positive pedal pulse. Patient is a turn and reposition. Tolerating diet without any nausea. Bed in lowest locked pos ition, bed alarm on and call curry within reach. . * Michelle Larkin RN: PERFORM, SIGN, VERIFY Event Display: Progress Note Hospital Authored Date: Patient: ROD CAMACHO Age: 87 years Sex: Male : 1935 Associated Diagnoses: None Author: Michelle Larkin RN Findings Problem Related to Alteration in Cardiac Function (new) : Alteration in Cardiac Function/new 10/05/2022 13:47 EDT Alteration in Cardiac Status Related to ACS Goals & Outcomes, Cardiac Status Pt will resume/maintain adequate cardiac output, Pt will resume/maintain adequate hemodynamic status, Pt will resume/maintain adequate respiratory function, Pt will resume/maintain intact neuro function, Pt will maintain adequate GI/ function appropriate for pt Cardiac Interventions Implemented Assess/monitor cardiac status, Assess/monitor neuro status, Assess/monitor respiratory status, Document & Monitor O2 Sats; Administer O2 as ordered Goals/Interventions, Cardiac Yes Cardiac, Problem Start 10/05/2022 13:50 Reviewed Plan with, Cardiac Status Patient Patient Progression, Cardiac Status Plan Initiation . Evaluation Pt. arrived to [id number] via stretcher from ED, slid to bed. Oriented to self only. 2 nurse skin checkcompleted with Sybil Wyatt RN. Skin intact, please see biophysical assessment. [place]guill[place] speaking only. C/O 6/10 chest pain with movement, prn Tylenol administered. Pt. has right BKA. Placed on tele per order, A. Fib. Incontinent of both bowel and bladder, urine is foul smelling. Unable to tell me last BM. Please see CIS for full assessment. Call curry within reach, fall precautions taken, safety maintained.. XR Ribs - left 2 Views * BHSPowerscribe , [facility]IS S: TRANSCRIBE Ethan GALEAS, Jami: VERIFY Brenda Kaba MD: SIGN Event Display: Result: Authored Date: Ribs 2 Views Left 2 views Reason: Pain; dementia, chest pain, rule out rib fx; Clinical Question(s): Fracture COMPARISON: Multiple priors, most recent chest x-ray 10/05/2022. FINDINGS: LINES AND TUBES: None. LUNGS AND PLEURA: The right lung is partially imaged. Prominent interstitial markings bilaterally. Mildly prominent pulmonary vascularity. No left pleural effusion. No pneumothorax. HEART, MEDIASTINUM AND EVERTON: Unchanged. BONES: No acute fractures or bone lesions. SOFT TISSUES: Unremarkable IMPRESSION: 1. No evidence of acute displaced fracture. 2. Prominent interstitial markings bilaterally. Findings could represent mild pulmonary edema. I have personally reviewed the images and I agree with this report. WSN: [id number] Ordering Physician: Riley Stacy Dictated By: Brenda Kaba MD Dictated Date/Time: 10/06/22 10:11 a Reviewed By: Jami Long MD Signed By: Jami Long MD Signed Date/Time: 10/06/22 10:16 am Transcribed By: SHITAL Transcribed Date/Time: 10/06/22 10:02 am Patient Care team information Care Team Personnel Name: Alexa Barajas NP, V Position: [facility] Outreach Member Role: PCP Address: Address: [address] [place] [address], [place], [place] [address] Name: Luz Bajwa RN Position: [facility] RN Member Role: Primary Care Nurse Name: Rosie Torres CNM Position: [facility] Access Clinician Member Role: Primary Care Nurse Address: Address: [address] [place], [place] [address]y [place], [place] [address] Name: Kd Beck RN Position: [facility] RN Member Role: Primary Care Nurse Name: Uzma Perez RN Position: [facility] RN Member Role: Primary Care Nurse Name: Delphine Carver RN Position: [facility] Hospital Manager Division Member Role: Primary Care Nurse Name: Jeanie JACOBO Attending Position: [facility] ED Medicine Name: Leonor Barker RN Position: [facility] ED RN W/OE and Tasks Member Role: Patient Care Provider Name: Hannah Salmon Position: [facility] Associate Professional Member Role: ED Physician Dampener Address: Address: [address] [place] [address] [place] [address]- Name: Ángela Dent Position: [facility] ED TA [facility] Member Role: Patient Care Provider Care Team Related Persons Name: LOTUS CAMACHO Address: [place] [address] Name: GERALD CAMACHO Address: [address] [place] [address] Name: ALICIA OLIVAS Address: home [address] [place] [address]
[2023-04-22 01:47] LABS: Bacteria Urine None Seen (None Seen); Hyaline Casts Urine 0-2 /LPF (0-2); UACC Culture Trigger YES; WBC Urine 21-50 /HPF (0-5)
[2023-04-22 01:47] LABS: Alanine Aminotransferase 11 U/L (0-40); Alkaline Phosphatase 65 U/L (39-117); Anion Gap 13 (12-20); Aspartate Amino Transferase 29 U/L (5-37); Bilirubin Total 0.5 mg/dL (0.0-1.0); Blood Urea Nitrogen 27 mg/dL (9-16); Calcium 9.4 mg/dL (8.4-10.2); Carbon Dioxide 28 mmol/L (22-29); Chloride 103 mmol/L (96-108); Creatinine Clr Calc Pharmacy 59.8; Estimated Glomerular Filt Rate > 60; Glucose Random 116 mg/dL (60-115); Potassium 5.1 mmol/L (3.3-5.1); Sodium 139 mmol/L (135-145)
--- NOTE | 2023-04-22 03:18 | PC.NURSE ---
pt daughter calling to request update on pt, pt aware. daughter requesting phone call when pt is brought back to the facility.
[2023-04-22] MEDS: cefuroxime axetiL 250 MG TABLET PO (06:34)
--- NOTE | 2023-04-22 06:46 | PC.NURSE ---
pt changed and repositioned at this time. [facility]
--- NOTE | 2023-04-22 09:14 | PHA.MEDREC ---
Pharmacy Consult ? Medication Reconciliation Pharmacy has completed the medication reconciliation.MED REC DONE USING LIST PROVIDED BY [facility]
== END 2023-04-22 08:50 | disposition skilled nursing facility (03) ==
PROVIDERS: Emergency Provider Internal Medicine; PCP Internal Medicine
DX: F03.918 Unspecified dementia, unspecified severity, with other behavioral disturbance (principal); R41.82 Altered mental status, unspecified; N39.0 Urinary tract infection, site not specified; I48.91 Unspecified atrial fibrillation; Z79.01 Long term (current) use of anticoagulants; Z79.899 Other long term (current) drug therapy
CPT/HCPCS: 36415; 80053; 81001; 85025; 87086; 93005; 99283; 99285

== ENCOUNTER 2023-05-10 13:25 | Emergency (ER) | payer OTHER, SELFPAY ==
--- NOTE | ~2023-05-10 | XR_ITS ---
EXAMINATION: XR CHEST CLINICAL INFORMATION: Chest pain COMPARISON: Chest 01/25/2023 TECHNIQUE: Frontal view of the chest was obtained. FINDINGS: The lungs are hyperinflated with bibasilar atelectasis/scarring. Heart size and pulmonary vascularity is normal. No gross bony abnormality. XR/XR chest 1V IMPRESSION: Hyperinflated lungs with bibasilar atelectasis/scarring. No change from previous exam 01/25/2023.
[2023-05-10 13:46] VITALS: BP 148/66; BP 149/60; PULSE 77; PULSE 82; RESP 16; TEMP 36.5; O2SAT 90; O2SAT 98; BMI 23.7
--- NOTE | 2023-05-10 13:54 | ECG_ITS ---
Test Reason : CHEST PAIN Blood Pressure : / mmHG Vent. Rate : 075 BPM Atrial Rate : 000 BPM P-R Int : 000 ms QRS Dur : 104 ms QT Int : 392 ms P-R-T Axes : 000 044 040 degrees QTc Int : 437 ms Atrial fibrillation Abnormal ECG When compared with ECG of 22-APR-2023 01:11, No significant change was found Referred By: Generic ED Physician Electronically Signed By:RAMIRO RABAGO
--- OUTSIDE RECORDS SUMMARY | 2023-05-10 14:15 | XMS_ITS | Patient Health Record ---
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) Active confirmed [id number] Encounters Encounter Location Date Provider Diagnosis [facility] [address] [place] [id number] 03/10/2023 Riley White Heme + stool R19.5 and Iron deficiency anemia due to chronic blood loss D50.0 [facility] [address] [place] [phone] 03/11/2023 Riley White ASSESSMENTS Encounter Date Diagnosis [...] Insured Coverage Start Date Coverage End Date [facility] [address] Attn Claims BRIAN Olivarez [facility] [id number] ROD HANSON Self - patient is the [...]
--- NOTE | 2023-05-10 14:29 | PC.NURSE ---
[facility] pt explained that this morning he was awoken by a nurse in order to give him a medication which made him feel a sharp pain in his left chest. pt reports both that he has pain was in his nipple and in my heart the pain was sharp. EMS gave 324 asa. now, lizette reports that the pain has mostly resolved. 90% RA on arrival - per EMS pt is often low 90s at SNF and is receiving duoneb treatments there. Place on 2L o2 - saturation 96%. vitals other bush stable. EKG done
[2023-05-10 15:06] LABS: MANUAL DIFF FLAG NO
[2023-05-10 15:10] LABS: Basophils Percent Auto 0.3 % (0-2); Eosinophils Absolute Auto 0.4 X10*3/uL (0.0-0.4); Eosinophils Percent Auto 4.7 % (0-4); Hematocrit 29.1 % (42.0-52.0); Hemoglobin 8.8 g/dl (14.0-18.0); Imm Gran Abs Auto 0.02 X10*3/uL (0.00-0.03); Imm Gran Pct Auto 0.3 % (0.0-0.4); Lymphocytes Absolute Auto 0.9 X10*3/uL (1.2-4.9); Lymphocytes Percent Auto 12.5 % (20-40); Mean Corpuscular HGB Conc 30.2 g/dl (31.0-36.0); Mean Corpuscular Hemoglobin 26.7 pg (27.0-33.0); Mean Corpuscular Volume 88.2 fL (80.0-98.0); Mean Platelet Volume 9.4 fL (9.4-12.4); Monocytes Absolute Auto 0.7 X10*3/uL (0.1-1.2); Monocytes Percent Auto 9.7 % (2-11); Neutrophils Absolute Auto 5.4 x10*3/uL (2.0-8.3); Neutrophils Percent Auto 72.5 % (45-73); Platelet Count 191 X10*3/uL (160-400); Red Cell Distribution Width 16.7 % (11.0-16.0); White Blood Count 7.4 X10*3/uL (4.8-10.8)
[2023-05-10 15:19] LABS: INTERNATIONAL NORM RATIO 1.4 (0.9-1.1); Prothrombin Time 17.3 SEC (11.1-13.3)
[2023-05-10 15:21] LABS: Partial Thromboplastin Time 43.2 SEC (26.0-36.4)
[2023-05-10 15:24] LABS: Alanine Aminotransferase 11 U/L (0-40); Alkaline Phosphatase 64 U/L (39-117); Anion Gap 13 (12-20); Aspartate Amino Transferase 18 U/L (5-37); Bilirubin Direct 0.2 mg/dL (0.0-0.5); Bilirubin Total 0.7 mg/dL (0.0-1.0); Blood Urea Nitrogen 31 mg/dL (9-16); Calcium 9.5 mg/dL (8.4-10.2); Carbon Dioxide 30 mmol/L (22-29); Chloride 103 mmol/L (96-108); Creatinine Clr Calc Pharmacy 52.2; Estimated Glomerular Filt Rate 59; Glucose Random 129 mg/dL (60-115); Magnesium 2.2 mg/dL (1.6-2.6); Potassium 4.2 mmol/L (3.3-5.1); Sodium 142 mmol/L (135-145); Total Protein 7.7 g/dL (6.5-8.0)
[2023-05-10 15:30] LABS: B Type Natriuretic Peptide 92 pg/mL (<100)
[2023-05-10 15:31] LABS: Troponin-I High Sensitivity 9.7 ng/L (<3.5-35.0)
--- NOTE | 2023-05-10 16:08 | PC.NURSE ---
pt is alert, oriented so self, birthday. know he is in the hospital, but thought it was [facility]. spoke o patients daughter and health care proxy who says he does use oxygen at [facility] as needed. pt on 2L o2 here in ED. awaiting for ED provider to sign up for pt
[2023-05-10 16:11] VITALS: BP 143/72; PULSE 84; RESP 16; O2SAT 98
--- NOTE | 2023-05-10 18:40 | ED.CHESTPAIN ---
HPI - Chest Pain General Chief Complaint: Chest Pain Stated Complaint: CP Time Seen by Provider: 05/10/23 17:51 Source: patient, family, RN notes reviewed, old records reviewed and staff interpreter Mode of arrival: EMS Limitations: language barrier History of Present Illness HPI narrative: 87-year-old male past medical history significant for hypertension, COPD on p.r.n. supplemental O2, congestive heart failure, AFib, peripheral artery disease, type 2 diabetes presents for evaluation of chest pain Patient reports that he had a dream last night that he ?saw Dre. ? He states that he told G this ?you can take me, I am ready to go whenever. ? Patient states that he woke up and he thought he saw the Ruben Gusman but then realized that he has a painting of the Ruben Gusman on his wall This was confirmed by his son who is bedside Patient states that when he woke up he had left-sided chest pain The pain lasted until about an hour after arrival to the ED Currently he has no chest pain at all He denies any shortness of breath Patient states that when he told his visiting nurse that he had chest pain they called the ambulance to have him brought to the hospital The patient currently feels well and has no complaints Related Data Home Medications Medication Instructions Recorded Confirmed ferrous sulfate 325 mg (65 mg 325 mg PO BID 03/28/20 04/22/23 iron) tablet melatonin 5 mg tablet 5 mg PO BEDTIME 03/28/20 04/22/23 metformin 500 mg tablet 500 mg PO DAILY 03/28/20 04/22/23 tamsulosin 0.4 mg capsule 0.4 mg PO DAILY 03/28/20 04/22/23 acetaminophen 325 mg tablet (Mapap 650 mg PO Q4H PRN Fever Or Pain 01/25/21 04/22/23 (acetaminophen)) amlodipine 10 mg tablet 10 mg PO DAILY 10/14/21 04/22/23 furosemide 40 mg tablet 40 mg PO Q48H 10/14/21 04/22/23 gabapentin 300 mg capsule 300 mg PO BEDTIME 08/05/22 04/22/23 nebulizers 08/05/22 12/16/22 hydralazine 50 mg tablet 50 mg PO TID 12/02/22 04/22/23 sertraline 50 mg tablet (Zoloft) 50 mg PO DAILY 12/16/22 04/22/23 atorvastatin 20 mg tablet 20 mg PO DAILY 12/29/22 04/22/23 docusate sodium 100 mg capsule 100 mg PO Q12H PRN Constipation 12/29/22 04/22/23 gabapentin 100 mg capsule 200 mg PO BID@0900,1300 12/29/22 04/22/23 guaifenesin 100 mg/5 mL oral 200 mg PO Q6H PRN Cough 12/29/22 04/22/23 liquid (Radha-Tussin) loratadine 10 mg tablet 10 mg PO DAILY 12/29/22 04/22/23 omeprazole 20 mg capsule,delayed 20 mg PO DAILY@1630 12/29/22 04/22/23 release polyethylene glycol 3350 17 gram 17 g PO DAILY PRN Constipation 12/29/22 04/22/23 oral powder packet apixaban 5 mg tablet (Eliquis) 5 mg PO BID 04/22/23 04/22/23 carboxymethylcellulose sodium 1 % 1 drp ophthalmic (eye) BID PRN Dry 04/22/23 04/22/23 eye drops (Artificial Tears Eyes (carboxymethylcellulose)) chlorhexidine gluconate 0.12 % 15 ml buccal DAILY 04/22/23 04/22/23 mouthwash cholecalciferol (vitamin D3) 125 125 mcg PO QMONTH 04/22/23 04/22/23 mcg (5,000 unit) capsule sodium chloride 3 % for 4 ml inhalation BID PRN AFTER 04/22/23 04/22/23 nebulization XOPENEX ADMINISTRATION Previous Rx's Medication Instructions Recorded levalbuterol HCl 1.25 mg/3 mL 1.25 mg (3 mL) inhalation BID 30 02/10/23 solution for nebulization days #180 mL cefuroxime axetil 250 mg tablet 250 mg PO BID 7 days #14 tabs 04/22/23 Allergies Allergy/AdvReac Type Severity Reaction Status Date / Time bee pollen [BEE STINGS] Allergy Severe ANAPHYLAXIS Verified 04/22/23 01:08 doxycycline [DOXYCYCLINE] Allergy Unknown ? ALLERGY Verified 04/22/23 01:08 PER [employer] Allergy Mild ITCHING Uncoded 03/30/23 10:38 Review of Systems Constitutional: Constitutional: Denies chills and Denies fever(s) Eyes: Eyes: Denies blurry vision ENT: Denies dizziness Cardiovascular: Cardiovascular: Reports chest pain, Reports chest pain at rest, Denies chest pain with activity and Denies dyspnea Respiratory: Respiratory: Denies cough and Denies dyspnea Gastrointestinal: Gastrointestinal: Denies abdominal pain, Denies nausea and Denies vomiting Musculoskeletal: Musculoskeletal: Denies back pain Integumentary/Breasts: Skin/Breast: Denies rash Neurologic: Denies dizziness [facility] Past Medical History Medical History Bronchiectasis Insomnia Pulmonary nodule COPD (chronic obstructive pulmonary disease) Chronic heart failure with preserved ejection fraction (HFpEF) Non-pressure chronic ulcer of other part of left foot with necrosis of bone Pressure ulcer of left heel, stage 3 Pleural effusion Acute and chronic respiratory failure with hypercapnia CHF (congestive heart failure) BARBARA (obstructive sleep apnea) Pulmonary hypertension Persistent atrial fibrillation Acute on chronic diastolic (congestive) heart failure COVID-19 CHF exacerbation 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 Father No problems noted. Son No problems noted. Son No problems noted. Son No problems noted. Son No problems noted. Daughter No problems noted. Daughter No problems noted. Daughter No problems noted. Social History Social History Household Members: Other Housing: Assisted Living [facility] Do you presently have visiting nurse or other home services: No Alcohol intake: former Comment: 1:1 sitter Patient Tobacco Use Status: Never used Tobacco Smoked in Last 30 Days: No Use of substances other than those prescribed or required for medical reasons: No Advance Directives: Yes Advance Directives on File: Yes Advance Directives Date on File: 03/28/20 service: No Current occupational status: retired Physical Exam Vital Signs: Vital Signs: Last Vital Signs Temp 97.7 F 05/10/23 13:46 Pulse 78 05/10/23 18:46 Resp 18 05/10/23 18:46 BP 156/78 H 05/10/23 18:46 Pulse Ox 93 05/10/23 18:46 O2 Del Method Nasal Cannula 05/10/23 18:46 O2 Flow Rate 1 05/10/23 18:46 BMI result Body Mass Index 23.7 Const: General: healthy appearing, comfortable, no acute distress, alert and awake Nutritional Appearance: well nourished Orientation/consciousness: patient oriented x3 HEENT: Head: Yes normocephalic and Yes atraumatic Eyes: Eyelids: Yes eyelids normal Conjunctivae: conjunctivae normal Sclerae: sclerae normal Corneas: corneas normal Pupils: Equal, round and reactive pupils present EOM: EOMs intact bilaterally Neck: Neck: Yes full ROM Resp: Effort & Inspection: normal respiratory effort, able to speak in complete sentences and not labored Cardio: Rate: abnormal rate Rhythm: abnormal rhythm GI: Inspection: No distended Palpation (GI): Soft to palpation, not firm, nontender, no guarding and not rigid Skin: General skin exam: elasticity normal Neuro: General: patient oriented x3 Cranial nerves: Yes Equal, round and reactive pupils present and Yes Bilaterally intact EOM present Cognition (Neuro): normal cognition Course Reevaluation(s) Reevaluation #1: Patient's repeat troponin is negative, he is stable for discharge Time: 19:40 Medical Decision Making Medical Decision Making [facility] Narrative: 87-year-old male multiple comorbidities presents for evaluation of chest pain. He is currently chest pain free. His EKG shows AFib without ischemic changes. His labs are reassuring. Will repeat a troponin to rule out coronary artery disease/ACS. Patient is 80-90% oxygen saturation on room air. However he does have p.r.n. oxygen at home this is likely his baseline. He denies any shortness of breath, lungs are clear to auscultation and chest x-ray is without acute findings. Patient can likely be discharged home pending repeat troponin Differential Diagnosis Differential Diagnoses: The differential diagnosis associated with the presentation includes Chest pain ACS Bronchitis Chest wall pain COPD exacerbation Admission/Observation Consideration of admission/observation: Escalation of care including admission/observation considered 87-year-old male with multiple comorbidities presents for evaluation chest pain. Workup ultimately deemed admission unnecessary Lab Data [facility] Lab Attestation statement: I reviewed the patient's lab results. No leukocytosis. The patient has a baseline, chronic anemia. Normal platelet count. Patient's electrolytes are significant for a CO2 of 30 which is likely related to COPD and chronic O2 use. His BUN is slightly elevated to 31 with a creatinine of 1.18. Slightly elevated glucose with no evidence of DKA 05/10/23 15:00 05/10/23 15:00 Labs: Lab Results 05/10/23 05/10/23 Range/Units 15:00 18:41 WBC 7.4 (4.8-10.8) X10*3/uL RBC 3.30 L (4.60-5.80) X10*6/uL Hgb 8.8 L (14.0-18.0) g/dl Hct 29.1 L (42.0-52.0) % MCV 88.2 (80.0-98.0) fL MCH 26.7 L (27.0-33.0) pg MCHC 30.2 L (31.0-36.0) g/dl RDW 16.7 H (11.0-16.0) % Plt Count 191 (160-400) X10*3/uL MPV 9.4 (9.4-12.4) fL Immature Gran % (Auto) 0.3 (0.0-0.4) % Neut % (Auto) 72.5 (45-73) % Lymph % (Auto) 12.5 L (20-40) % [place] % (Auto) 9.7 (2-11) % Eos % (Auto) 4.7 H (0-4) % Baso % (Auto) 0.3 (0-2) % Lymph # (Auto) 0.9 L (1.2-4.9) X10*3/uL [place] # (Auto) 0.7 (0.1-1.2) X10*3/uL Eos # (Auto) 0.4 (0.0-0.4) X10*3/uL Baso # (Auto) 0.0 (0.0-0.2) X10*3/uL Abs Immat Gran (auto) 0.02 (0.00-0.03) X10*3/uL Absolute Neuts (auto) 5.4 (2.0-8.3) x10*3/uL Absolute Nucleated RBC 0.000 (0.0-0.012) X10*3/uL Nucleated RBC % (auto) 0.0 (0.0-0.2) /100WBC PT 17.3 H (11.1-13.3) SEC INR 1.4 H (0.9-1.1) APTT 43.2 H (26.0-36.4) SEC Sodium 142 (135-145) mmol/L Potassium 4.2 (3.3-5.1) mmol/L Chloride 103 (96-108) mmol/L Carbon Dioxide 30 H (22-29) mmol/L Anion Gap 13 (12-20) BUN 31 H (9-16) mg/dL Creatinine 1.18 (0.5-1.4) mg/dL Estim Creat Clear Calc 52.2 Estimated GFR 59 Random Glucose 129 H (60-115) mg/dL Calcium 9.5 (8.4-10.2) mg/dL Magnesium 2.2 (1.6-2.6) mg/dL Total Bilirubin 0.7 (0.0-1.0) mg/dL Direct Bilirubin 0.2 (0.0-0.5) mg/dL AST 18 (5-37) U/L ALT 11 (0-40) U/L Alkaline Phosphatase 64 (39-117) U/L Troponin I High Sens 9.7 9.3 (<3.5-35.0) ng/L B-Natriuretic Peptide 92 (<100) pg/mL Total Protein 7.7 (6.5-8.0) g/dL Albumin 4.0 (3.5-5.0) g/dL Independent Interpretation I performed an independent interpretation of an: Plain X-Ray (No acute infiltrate) Radiology Impression Discussion of test interpretation with radiology: I have reviewed the radiologist's reading. Radiologist Impression: Hyperinflated lungs with bibasilar atelectasis/scarring. No change from previous seen 01/25/2023 Discharge Plan Discharge Clinical Impression: Chest pain Patient Disposition: Home, Self-Care Instructions: Chest Pain (ED) Additional Instructions: Your workup in the emergency department today was reassuring. Take all of your home medications as prescribed. Use your p.r.n. oxygen as needed Call your primary doctor to schedule follow-up Prescriptions: No Action levalbuterol HCl 1.25 mg/3 mL solution for nebulization 1.25 mg inhalation BID 30 Days Qty: 180 0RF Rx Instructions: FOLLOW WITH 3% SODIUM CHLORIDE INHALER SOLUTION metformin 500 mg tablet 500 mg PO DAILY tamsulosin 0.4 mg capsule 0.4 mg PO DAILY ferrous sulfate 325 mg (65 mg iron) tablet 325 mg PO BID melatonin 5 mg tablet 5 mg PO BEDTIME amlodipine 10 mg tablet 10 mg PO DAILY Rx Instructions: hold for BP less than 130/80 acetaminophen [Mapap (acetaminophen)] 325 mg Tablet 650 mg PO Q4H PRN (Reason: Fever Or Pain) cefuroxime axetil 250 mg tablet 250 mg PO BID 7 Days Qty: 14 0RF Artificial Tears (cmc) 1 % Drops 1 drp OPHTHALMIC (EYE) BID PRN (Reason: Dry Eyes) chlorhexidine gluconate 0.12 % Mouthwash 15 ml BUCCAL DAILY Eliquis 5 mg Tablet 5 mg PO BID sodium chloride 3 % Solution For Nebulization 4 ml INHALATION BID PRN (Reason: AFTER XOPENEX ADMINISTRATION) cholecalciferol (vitamin D3) 125 mcg (5,000 unit) Capsule 125 mcg PO QMONTH Rx Instructions: TAKE ON THE 9TH OF EVERY MONTH polyethylene glycol 3350 17 gram Powder In Packet 17 g PO DAILY PRN (Reason: Constipation) guaifenesin [Radha-Tussin] 100 mg/5 mL Liquid 200 mg PO Q6H PRN (Reason: Cough) docusate sodium 100 mg Capsule 100 mg PO Q12H PRN (Reason: Constipation) gabapentin 100 mg capsule 200 mg PO BID@0900,1300 loratadine 10 mg Tablet 10 mg PO DAILY atorvastatin 20 mg tablet 20 mg PO DAILY omeprazole 20 mg capsule,delayed release(DR/EC) 20 mg PO DAILY@1630 Rx Instructions: 30 min before dinner furosemide 40 mg tablet 40 mg PO Q48H Protocol: Hold for SBP< HOLD for SBP < : 100 sertraline [Zoloft] 50 mg tablet 50 mg PO DAILY gabapentin 300 mg capsule 300 mg PO BEDTIME (DME) nebulizers Misc See Rx Instructions .Route Rx Instructions: As directed hydralazine 50 mg tablet 50 mg PO TID Rx Instructions: hold for BP less than 130/80
[2023-05-10 18:46] VITALS: BP 156/78; PULSE 78; RESP 18; O2SAT 93
--- NOTE | 2023-05-10 18:47 | PC.NURSE ---
pt denies chest pain, reports it has totally resolved. repeat Trop sent to [facility] pending result. 88-92 on RA, pt uses O2 PRN, placed on 1l for comfort
[2023-05-10 19:05] LABS: Troponin-I High Sensitivity 9.3 ng/L (<3.5-35.0)
== END 2023-05-10 21:07 | disposition home or self-care (01) ==
PROVIDERS: Physician Assistant; Physician Assistant Medical; Emergency Provider Internal Medicine; PCP Internal Medicine
DX: R07.9 Chest pain, unspecified (principal); I50.9 Heart failure, unspecified; I48.91 Unspecified atrial fibrillation; I73.9 Peripheral vascular disease, unspecified; E11.9 Type 2 diabetes mellitus without complications; Z79.899 Other long term (current) drug therapy
CPT/HCPCS: 36415; 71045; 80048; 80076; 83735; 83880; 84484; 85025; 85610; 85730; 93005; 99284

== ENCOUNTER → 2023-05-10 13:54 | Outpatient (BNV) | payer OTHER, SELFPAY | PROVIDERS: Emergency Provider Internal Medicine; PCP Internal Medicine; Visit Provider Internal Medicine | DX: I48.19 Other persistent atrial fibrillation (principal); R94.31 Abnormal electrocardiogram [ECG] [EKG] | CPT/HCPCS: 93010 ==

== ENCOUNTER 2023-08-24 12:43 | Outpatient (REF) | payer OTHER, SELFPAY ==
--- NOTE | ~2023-08-24 | CT_ITS ---
EXAMINATION: CT CHEST WITHOUT CONTRAST CLINICAL INFORMATION: Pulmonary nodule COMPARISON: Chest x-ray 05/10/[address] 12/29/2022 TECHNIQUE: Multidetector volumetric CT imaging of the chest was done. Axial MIP volume rendering provided. Sagittal and coronal reformatted images were obtained. This CT examination was performed using dose optimization techniques as appropriate, variously including the following: *Automated exposure control *Adjustment of mA and/or kV according to patient size (this includes techniques or standardized protocols for targeted exams where dose is matched to indication/reason for exam; i.e. extremities or head) *Use of iterative reconstruction technique DLP: 284 mGy-cm FINDINGS: Central airways are patent although some peripheral mucous plugging is noted. There is mild diffuse bronchial wall thickening. Filling defect along the anterior wall of the distal trachea is nonspecific but statistically mucus. Lungs are adequately aerated. Similar biapical somewhat nodular scarring. Similar irregular linear opacity within the posterior aspect of the right upper lobe, also suspected to represent scarring. There is some scattered groundglass opacities throughout both lungs. Several previously visualized subcentimeter pulmonary nodules and nodular densities are stable. Largest definitive pulmonary nodule remains a 9 mm right lower lobe subpleural nodule (image 312/526, series 4). Cannot exclude a development of any new pulmonary micronodules given background of airspace disease. The heart is enlarged. Coronary artery calcifications are present. There is no pericardial effusion. Several prominent mediastinal lymph nodes are again noted, however, they appear less prominent than prior cross-sectional imaging from December 2022. Evaluation for hilar lymphadenopathy is suboptimal given lack of IV contrast. No pathologically enlarged axillary lymph nodes identified. Visualized portions of the upper abdomen demonstrate cholelithiasis. Diffuse osteopenia. Moderate degenerative changes of the spine. CT/CT chest wo IV con IMPRESSION: 1. Several previously visualized subcentimeter pulmonary nodules and nodular densities are stable. Largest definitive pulmonary nodule remains a 9 mm right lower lobe subpleural nodule. Cannot exclude a development of any new pulmonary micronodules given background of airspace disease. 2. Several prominent mediastinal lymph nodes are again noted, however, they appear less prominent than prior cross-sectional imaging from December 2022. 3. There is some scattered groundglass opacities throughout both lungs, atelectasis versus infectious/inflammatory. Fleischner guidelines were followed.
== END 2023-08-24 12:44 | disposition home or self-care (01) ==
LOC: HO.CT 12:43
PROVIDERS: PCP Internal Medicine; Visit Provider Hospitalist
DX: R91.1 Solitary pulmonary nodule (principal)
CPT/HCPCS: 71250

== ENCOUNTER 2023-09-28 13:21 | Outpatient (AMB) | payer OTHER, SELFPAY ==
[2023-09-28 13:29] VITALS: PULSE 67; O2SAT 96; BMI 21.8
--- NOTE | 2023-09-28 13:29 | A.OFFVIS_ITS ---
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 Apparently the patient had a repeat CT scan of the chest to follow up some pulmonary nodules and other abnormalities was noted to have a 9- 10 mm pulmonary nodule in the right hemithorax. Although the smaller pulmonary nodules noted. I did personally review the CT scan demonstrating also some bronchitis and bronchiectatic changes as well as some scarring. The pulmonary nodule in the right hemithorax measured about a cm. I did go back and review with previous CT scans. The CT scan that had back in 2020 it was difficult to assess in view of his significant airspace disease and pleural effusions. Subsequently after that will back to a CT scan from 2019 and the pulmonary nodule measures about 9 mm in size which is slightly smaller. Will go ahead and repeat the CT scan in 6 months. In the meantime the patient does have evidence of bronchiectasis so therefore will request a CPT device with an Acapella valve that he can work for mucus clearance. His major complaint all today is that the fact that he can not sleep. I did review his medications. He is on gabapentin at nighttime. Is not a reasonable to increase the gabapentin to 600 mg at nighttime to make sure that he is getting adequate sleep. Otherwise consider alternative agents. Patient denies any choking when he eats. Denies any significant coughing. In view of the difficulty sleeping though will go ahead and request an overnight oximetry to make sure that he is getting adequate oxygenation at nighttime. 02/02/2023 the patient is here for hospital follow-up visit. The patient has had multiple exacerbations of his breathing. He ended up back in the hospital a week ago. Worsening cough overall. He does have a lot of phlegm in difficult for him to expectorate. We did review his last CT scan of the chest that was done back in December 2022 and we did compared to his CT scan from June 2022. His pulmonary nodules appear to be stable. However, does have significant bronchiectasis and now with a new area of ground-glass or haziness in the upper lungs O. his daughter is with him. She is concerned about his swallowing aspiration risk. He was told that he has pretty poor dentition and he was supposed to have his teeth extracted but never did. She explained to her that yes. Potential micro aspirations can result in his chronic picture. Therefore will start him on azithromycin to help him with promotility effects and anti- inflammatory effects from the bronchiectasis. We were able to do a sputum culture sent for both AFB and also Gram staining culture sent to the laboratory. In the office we did perform a nebulized treatment with Xopenex and hypertonic saline and then we were able to expectorate. I talked to the patient also the daughter that using chest PT with nebulizer therapy and Acapella valve or flutter valve will be helpful in mucus clearance. If the culture shows I a resistant organism that requires a different antibiotic we will decide at that point. In the meantime will start him on azithromycin in order to provide with anti-inflammatory effects and also provide him with promotility Function. Chlorhexidine also be helpful to maintain a sterile mouth and avoid microaspirat ion with bacteria into the lungs. Explained to the daughter and the patient that and it different circumstances bronchoscopy will be helpful for mucus clearing and also for deep cultures to assess exactly what the potential bacteria organism is that is affecting his lungs. Still this procedures need anesthesia and any anesthesia in his case would be high risk and therefore needs to be careful and avoid risk of procedures the possible. 03/30/2023 the patient is here for a pulmonary follow-up visit. He is here with his daughter. Overall he is doing better. Denies any significant coughing or chest congestion. He is continue the therapy as prescribed. Will try to deescalate therapy at this time. Does complaint of allergy symptoms. Having itchy eyes. He is currently on Claritin. His daughter will get him some [id number] allergy drops at this time. He has been on the nebulized therapy with the hypertonic saline for bronchopulmonary hygiene. Also tolerating the chlorhexidine. He is going to have some dental procedures coming up soon. At this point will go ahead and stop the azithromycin since he seems to be doing okay. However, if his symptoms worsen upon discontinuation of the medication then we can always consider restarting the medication. If he does continue the azithromycin he will need serial EKGs to make sure that his QT interval stay within normal limits. 09/28/2023 the patient is here for a pulmonary follow-up visit. The patient has been complaining of about a week of sore throat in addition to chest congestion and sinus pressure. The patient has been having increasing mucus production. Moderate severity. He also did have a CT scan of the chest done which we personally reviewed. It appears that he still has some areas of haziness suggesting some degree of pneumonitis. In addition to that the pulmonary nodules appear to be stable. His largest nodule measuring 8 mm in size. At this point the nodule is stable and therefore we will have him return in the fall and I can talk to the patient and also the daughter to see if additional CT scans are warranted. He continues on the chlorhexidine mouthwash. This is helping his microaspiration and was infection which is reassuring. 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 Father No problems noted. Son No problems noted. Son No problems noted. Son No problems noted. Son No problems noted. Daughter No problems noted. Daughter No problems noted. Daughter No problems noted. Social History Household Members: Other Housing[facility]isted [facility] Do you presently have visiting nurse or other home services: No Alcohol intake: former Comment: 1:1 sitter Patient Tobacco Use Status: Never used Tobacco Advance Directives Date on File: 03/28/20 service: No Current occupational status: retired Review of Systems Const Denies chills, Reports daytime sleepiness, Reports difficulty sleeping, Denies fatigue, Denies fever(s), Denies frequent falls, Denies poor appetite, Denies snoring, Denies stops breathing during sleep, Denies weakness, Denies weight gain and Denies weight loss Eyes Reports itchy eyes and Denies loss of vision ENT Denies dizziness, Denies hearing loss and Reports sore throat Card Denies chest pain, Denies claudication, Denies leg edema, Denies lightheadedness, Denies palpitations, Denies dyspnea, Denies dyspnea on exertion, Denies orthopnea and Denies other (Loss of consciousness) Resp Reports change in phlegm color, Reports chest congestion, Reports cough, Denies excessive phlegm production, Denies dyspnea, Denies dyspnea on exertion, Denies snoring and Denies wheezing GI Denies abdominal pain, Denies hematochezia, Denies change in bowel habits, Denies nausea and Denies vomiting Denies dysuria and Denies urinary frequency Musc Denies arthralgias, Denies muscle weakness and Denies numbness Skin/Breast Denies nail changes and Denies rash Neuro Denies Abnormal speech present, Denies dizziness, Denies frequent falls, Denies loss of vision, Denies memory loss, Denies numbness and Denies weakness Psych Denies depression and Denies memory loss Endo Denies fatigue and Denies palpitations Miguel/Lymph Denies easy bruising and Denies other (Anemia) Aller/Immun Reports itchy eyes and Denies wheezing Physical Exam Vital Signs: Last Vital Signs Pulse 67 09/28/23 13:29 Pulse Ox 96 09/28/23 13:29 Oxygen Delivery Method Room Air 09/28/23 13:29 BMI result Body Mass Index 21.8 Const General: comfortable and no acute distress Orientation/consciousness: patient oriented x3 HEENT Other: Unremarkable Head: Yes normal to inspection and Yes normocephalic Neck Neck: Yes normal visual inspection Chest Chest palpation & inspection: normal inspection of the chest Resp Effort & Inspection: normal respiratory effort Auscultation: no rhonchi and diminished lung sounds Cardio Rate: regular rate Heart sounds: S1 normal heart sound present and S2 normal heart sound present GI Palpation (GI): Soft to palpation Back/Spine/Pelvis Other: unremarkable Skin General skin exam: no rashes or lesions noted Neuro General: patient oriented x3 Speech: No Abnormal speech present Extrem Other: Right below-knee amputation. General: Yes no clubbing, cyanosis or edema Right lower extremity: knee (amputation) Psych Mental Status: mental status grossly normal Assessment & Plan Assessment & Plan (1) Pulmonary nodule: Code(s): R91.1 - Solitary pulmonary nodule Category: Medical (2) COPD (chronic obstructive pulmonary disease): Code(s): J44.9 - Chronic obstructive pulmonary disease, unspecified Category: Medical Qualifiers: COPD type: chronic bronchitis Chronic bronchitis type: mixed simple and mucopurulent Qualified Code(s): J41.8 - Mixed simple and mucopurulent chronic bronchitis (3) Chronic heart failure with preserved ejection fraction (HFpEF): Code(s): I50.32 - Chronic diastolic (congestive) heart failure Category: Medical (4) Bronchiectasis: Code(s): J47.9 - Bronchiectasis, uncomplicated Category: Medical Qualifiers: Bronchiectasis type: uncomplicated Qualified Code(s): J47.9 - Bronchiectasis, uncomplicated Plan Continue nebs xopenex followed by 3% hypertonic saline CPT with acapella valve after nebs BID stop Azithromycin MWF. Continue Chlorhexadine MW start Augmentin x 8-[address] chest stable, will discuss next visit if additional imaging is warranted F/U 6 months Medications: New amoxicillin-pot clavulanate 875-125 mg 1 tab PO BID 20 tabs 0RF 10 days amoxicillin-pot clavulanate 875-125 mg 1 tab PO BID 10 days 20 tabs 0RF
== END 2023-09-28 13:57 | disposition home or self-care (01) ==
LOC: HO.HPS 13:22
PROVIDERS: PCP Internal Medicine; Visit Provider Hospitalist
DX: R91.1 Solitary pulmonary nodule (principal); J41.8 Mixed simple and mucopurulent chronic bronchitis; I50.32 Chronic diastolic (congestive) heart failure; J47.9 Bronchiectasis, uncomplicated
CPT/HCPCS: 99214

== ENCOUNTER → 2023-09-28 13:22 | Outpatient (BNVA) | payer OTHER, SELFPAY | PROVIDERS: PCP Internal Medicine; Visit Provider Hospitalist | DX: J47.9 Bronchiectasis, uncomplicated (principal); R91.1 Solitary pulmonary nodule; J41.8 Mixed simple and mucopurulent chronic bronchitis; I50.32 Chronic diastolic (congestive) heart failure | CPT/HCPCS: 99212 ==

== ENCOUNTER 2024-01-26 12:43 | Inpatient (IN) | payer OTHER, SELFPAY ==
[2024-01-26] VITALS (17 sets, daily range): BP systolic 133–176; BP diastolic 43–74; PULSE 72–89; RESP 14–21; TEMP 36.3–37.3; O2SAT 91–99; BMI 27.4
--- NOTE | 2024-01-26 13:04 | ECG_ITS ---
Test Reason : GENERALIZED WEAKNESS Blood Pressure : / mmHG Vent. Rate : 078 BPM Atrial Rate : 000 BPM P-R Int : 000 ms QRS Dur : 100 ms QT Int : 386 ms P-R-T Axes : 000 056 068 degrees QTc Int : 440 ms Atrial fibrillation Incomplete right bundle branch block Abnormal ECG When compared with ECG of 10-MAY-2023 13:59, No significant change was found Referred By: Faustino Seo Electronically Signed By:CORINA WALKER
--- NOTE | 2024-01-26 13:10 | ED.GENADULT ---
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 Seo HPI narrative: 88-year-old male limited historian came in from long-term facility for anemia and possible blood transfusion. Patient declined blood from the rectum or bleeding from anywhere else, no abdominal pain, patient is on Eliquis. Related Data Home Medications ?Medication ?Instructions ?Recorded ?Confirmed ferrous sulfate 325 mg (65 mg 325 mg PO BID 03/28/20 01/26/24 iron) tablet melatonin 5 mg tablet 5 mg PO BEDTIME 03/28/20 01/26/24 metformin 500 mg tablet 500 mg PO DAILY 03/28/20 01/26/24 tamsulosin 0.4 mg capsule 0.4 mg PO DAILY 03/28/20 01/26/24 amlodipine 10 mg tablet 10 mg PO DAILY 10/14/21 01/26/24 furosemide 40 mg tablet 40 mg PO Q48H 10/14/21 01/26/24 nebulizers 08/05/22 12/16/22 hydralazine 50 mg tablet 50 mg PO TID 12/02/22 01/26/24 sertraline 50 mg tablet (Zoloft) 50 mg PO DAILY 12/16/22 01/26/24 atorvastatin 20 mg tablet 20 mg PO DAILY 12/29/22 01/26/24 docusate sodium 100 mg capsule 100 mg PO Q12H PRN Constipation 12/29/22 01/26/24 gabapentin 100 mg capsule 100 mg PO TID 12/29/22 01/26/24 guaifenesin 100 mg/5 mL oral 200 mg PO Q6H PRN Cough 12/29/22 01/26/24 liquid (Radha-Tussin) loratadine 10 mg tablet 10 mg PO DAILY 12/29/22 01/26/24 omeprazole 20 mg capsule,delayed 20 mg PO DAILY@1630 12/29/22 01/26/24 release polyethylene glycol 3350 17 gram 17 g PO DAILY PRN Constipation 12/29/22 01/26/24 oral powder packet apixaban 5 mg tablet (Eliquis) 5 mg PO BID 04/22/23 01/26/24 carboxymethylcellulose sodium 1 % 1 drp ophthalmic (eye) BID PRN Dry 04/22/23 01/26/24 eye drops (Artificial Tears Eyes (carboxymethylcellulose)) chlorhexidine gluconate 0.12 % 15 ml buccal DAILY 04/22/23 01/26/24 mouthwash cholecalciferol (vitamin D3) 125 125 mcg PO QMONTH 04/22/23 01/26/24 mcg (5,000 unit) capsule sodium chloride 3 % for 4 ml inhalation BID PRN AFTER 04/22/23 01/26/24 nebulization [employer] risperidone 0.25 mg tablet 0.25 mg PO BEDTIME 09/28/23 01/26/24 acetaminophen 325 mg tablet 325 mg PO Q6H PRN Pain/ Fever 01/26/24 01/26/24 Greater them 100?F guaifenesin 600 mg tablet, 600 mg PO Q12H PRN Congestion 01/26/24 01/26/24 extended release 12 hr (Mucinex) ondansetron HCl 4 mg tablet 4 mg PO Q6H PRN Nausea 01/26/24 01/26/24 Previous Rx's ?Medication ?Instructions ?Recorded levalbuterol HCl 1.25 mg/3 mL 1.25 mg (3 mL) inhalation BID 02/10/23 solution for nebulization days #180 mL Allergies Allergy/AdvReac Type Severity Reaction Status Date / Time bee pollen [BEE STINGS] Allergy Severe ANAPHYLAXIS Verified 01/26/24 13:01 doxycycline [DOXYCYCLINE] Allergy Unknown ? ALLERGY Verified 09/28/23 13:30 PER [employer] Allergy Mild ITCHING Uncoded 09/28/23 13:30 Review of Systems Review of Systems: All other systems are reviewed and are negative Constitutional: Reports as per HPI and Reports no additional constitutional complaints Eyes: Reports as per HPI and Reports no additional eye complaints Reports system reviewed and no additional complaints, except as documented Cardiovascular: Reports as per HPI and Reports no additional cardiovascular complaints Respiratory: Reports as per HPI and Reports no additional respiratory complaints Gastrointestinal: Reports as per HPI and Reports no additional gastrointestinal complaints Genitourinary: Reports no additional female genitourinary complaints Musculoskeletal: Reports no additional musculoskeletal complaints Skin/Breast: Reports system reviewed and no additional complaints, except as docu Psychiatric: Reports no additional psychiatric complaints Endocrine: Reports no additional endocrine complaints Hematologic/Lymphatic: Reports no additional hematologic/lymphatic complaints Allergic/Immunologic: Reports no additional allergic/immunologic complaints Reports system reviewed and no additional complaints, except as documented and Reports Abnormal speech present [facility] Past Medical History Medical History Bronchiectasis Insomnia Pulmonary nodule COPD (chronic obstructive pulmonary disease) Chronic heart failure with preserved ejection fraction (HFpEF) Non-pressure chronic ulcer of other part of left foot with necrosis of bone Pressure ulcer of left heel, stage 3 Pleural effusion Acute and chronic respiratory failure with hypercapnia CHF (congestive heart failure) BARBARA (obstructive sleep apnea) Pulmonary hypertension Persistent atrial fibrillation Acute on chronic diastolic (congestive) heart failure COVID-19 CHF exacerbation 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 Father No problems noted. Son No problems noted. Son No problems noted. Son No problems noted. Son No problems noted. Daughter No problems noted. Daughter No problems noted. Daughter No problems noted. Social History Social History Household Members: None Housing: [facility]ment [facility] Do you presently have visiting nurse or other home services: No Alcohol intake: former Comment: 1:1 sitter Patient Tobacco Use Status: Never used Tobacco Smoked in Last 30 Days: No Use of substances other than those prescribed or required for medical reasons: No Currently Displaying Signs/Symptoms of Drug Intoxication Withdrawal: No Any prior treatment program specific to substance use: No Have you been hit, kicked, punched, or otherwise hurt by someone within the past year? If so, by whom?: No Do you feel safe in your current relationship?: No Current Relationship Is there a partner from a previous relationship who is making you feel unsafe now?: No Are you made to feel afraid or neglected: No Advance Directives: Yes Advance Directives Information Provided: No Advance Directives on File: Yes Advance Directives Date on File: 03/28/20 Do you have a plan to hurt others: No Plan Recently lost weight without trying: Unsure How much weight loss: Unsure Eating poorly because of decreased appetite: No Nutrition screen score: 4 Nutrition Risks: No Nutritional Risk service: No Current occupational status: retired Physical Exam ED Vital Signs: Vital Signs - 24 hr 01/26/24 12:55 01/26/24 13:26 01/26/24 13:27 Temperature 98.3 F 98.4 F Pulse Rate 74 88 Respiratory Rate 20 21 H Blood Pressure 133/58 L Pulse Oximetry 94 94 Oxygen Delivery Method Room Air Room Air 01/26/24 14:31 01/26/24 15:37 01/26/24 15:58 Temperature 97.4 F 97.7 F 97.8 F Pulse Rate 75 77 80 Respiratory Rate 14 20 20 Blood Pressure 143/52 H 140/43 H 150/52 H Pulse Oximetry 99 Oxygen Delivery Method Room Air BMI result Body Mass Index 27.4 Vital signs have been reviewed and appear to be correct. Blood pressure elevated. Heart rate normal. Respiratory rate normal. Temperature normal. Oxygen saturation normal. Appearance: Alert. Oriented X3. No acute distress. Head: Normal external exam. Normocephalic. Atraumatic. No Ashby signs noted. No raccoon eyes noted Eyes: PERRLA. EOMI. Conjunctiva and sclera normal. Eyelids normal. ENT: TM's Normal. Pharynx normal. Uvula midline. Moist mucous membranes. No trismus noted. No drooling noted. No muffled voice noted. Neck: Normal inspection. Neck supple. FROM. No adenopathy. Thyroid Normal. No meningeal signs. No neck mass noted. CVS: Normal heart rate and rhythm. Heart sound normal. No murmurs noted. Pulses normal throughout. Respiratory: No respiratory distress. Painless inspiration. Breath sounds normal. No wheezes/rales/rhonchi noted. Chest nontender. No accessory muscle usage noted or decreased air movement noted. Abdomen: Soft and nontender. Bowel sounds normal in all 4 quadrants. No distention noted. No organomegaly noted. No visible injury noted. Rectal exam: No internal or external hemorrhoid, no active bleeding, brown stool guaiac positive. Back: No CVA tenderness. Full range of motion noted. Skin: Skin warm and dry. Normal skin color. Normal skin turgor. No rashes/lesions/lacerations noted. Extremities: No lower extremity edema. Extremities exhibit normal range of motion. Extremities nontender. Neuro: Oriented X 3. Cranial nerve exam: II-XII are grossly intact No motor deficit. No sensory deficit. Reflexes normal. Course Reevaluation(s) Reevaluation #1: Acute anemia, on Eliquis, hemodynamically stable, no abdominal pain. Will transfuse 2 units of blood, case discussed with Dr. Roberson to admit. Time: 15:17 Medications Administered Generic Name Dose Route Start Last Admin Trade Name Freq PRN Reason Stop Dose Admin Ferrous Sulfate 324 mg 01/26/24 21:00 01/26/24 20:17 Ferrous Sulfate 324 Mg Tablet. PO 324 mg BID BREE Administration Gabapentin 100 mg 01/26/24 21:00 01/26/24 20:17 Gabapentin 100 Mg Capsule PO 100 mg TID BREE Administration Hydralazine HCl 50 mg 01/26/24 21:00 01/26/24 20:16 Hydralazine Hcl 50 Mg Tablet PO 50 mg TID BREE Administration Protocol Insulin Human Lispro 0 unit 01/26/24 16:30 01/27/24 07:53 Insulin Lispro 100 Unit/Ml 3 Ml Vial SUBCUT Not Given QIDACHS [facility] Protocol Levalbuterol HCl 1.25 mg 01/26/24 20:00 01/27/24 07:39 Levalbuterol Hcl 1.25 Mg/3 Ml Vial.Neb INHALE 1.25 mg RBID BREE Administration Melatonin 6 mg 01/26/24 21:00 01/26/24 20:17 Melatonin 3 Mg Tablet PO 6 mg BEDTIME BREE Administration Pantoprazole Sodium 40 mg 01/26/24 16:40 01/27/24 07:56 Pantoprazole Sodium 40 Mg/10 Ml Vial IVPUSH 40 mg BID@0630,1630 BREE Administration Risperidone 0.25 mg 01/26/24 21:00 01/26/24 21:37 Risperidone 0.25 Mg Tablet PO 0.25 mg BEDTIME BREE Administration Sodium Chloride 3 ml 01/27/24 00:00 01/27/24 07:56 0.9 % Sodium Chloride Flush 3 Ml Syringe IVFLUSH 3 ml QSHIFT BREE Administration Discontinued Medications Generic Name Dose Route Start Last Admin Trade Name Andreina PRN Reason Stop Dose Admin Furosemide 20 mg 01/26/24 16:12 01/26/24 17:35 Furosemide 20 Mg/2 Ml Vial IVPUSH 01/26/24 16:13 20 mg ONCE ONE Administration Protocol Sodium Chloride 100 mls @ 100 mls/hr 01/26/24 15:07 01/26/24 17:30 Ns IV 01/26/24 16:06 Infused ONCE ONE Infusion Sodium Chloride 100 mls @ 100 mls/hr 01/26/24 15:07 01/26/24 20:19 Ns IV 01/26/24 16:06 Infused ONCE ONE Infusion Medical Decision Making Differential Diagnosis Differential Diagnoses: The differential diagnosis associated with the presentation includes (GI bleed, hemodynamic instability, severe anemia,) Admission/Observation Consideration of admission/observation: Escalation of care including admission/observation considered Consult Healthcare Provider Management of the patient was discussed with: Hospitalist (Dr. Roberson) Lab Data MDM Lab Attestation statement: I reviewed the patient's lab results. 01/27/24 06:17 01/27/24 06:17 Labs: Lab Results 01/26/24 01/26/24 01/26/24 Range/Units 13:30 13:32 13:33 WBC 7.8 (4.8-10.8) X10*3/uL RBC 2.63 L D (4.60-5.80) X10*6/uL Hgb 6.9 L* D (14.0-18.0) g/dl Hct 21.8 L D (42.0-52.0) % MCV 82.9 (80.0-98.0) fL MCH 26.2 L (27.0-33.0) pg MCHC 31.7 (31.0-36.0) g/dl RDW 17.1 H (11.0-16.0) % Plt Count 240 D (160-400) X10*3/uL MPV 9.4 (9.4-12.4) fL Immature Gran % (Auto) 0.4 (0.0-0.4) % Neut % (Auto) 69.2 (45-73) % Lymph % (Auto) 12.4 L (20-40) % [place] % (Auto) 13.8 H (2-11) % Eos % (Auto) 3.8 (0-4) % Baso % (Auto) 0.4 (0-2) % Lymph # (Auto) 1.0 L (1.2-4.9) X10*3/uL [place] # (Auto) 1.1 (0.1-1.2) X10*3/uL Eos # (Auto) 0.3 (0.0-0.4) X10*3/uL Baso # (Auto) 0.0 (0.0-0.2) X10*3/uL Abs Immat Gran (auto) 0.03 (0.00-0.03) X10*3/uL Absolute Neuts (auto) 5.4 (2.0-8.3) x10*3/uL Absolute Nucleated RBC 0.000 (0.0-0.012) X10*3/uL Nucleated RBC % (auto) 0.0 (0.0-0.2) /100WBC Sodium 134 L (135-145) mmol/L Potassium 4.7 (3.3-5.1) mmol/L Chloride 97 (96-108) mmol/L Carbon Dioxide 30 H (22-29) mmol/L Anion Gap 12 (12-20) BUN 31 H (9-16) mg/dL Creatinine 1.14 (0.5-1.4) mg/dL Estim Creat Clear Calc 47.1 Estimated GFR > 60 Random Glucose 149 H (60-115) mg/dL Calcium 9.7 (8.4-10.2) mg/dL Total Bilirubin 0.4 (0.0-1.0) mg/dL Direct Bilirubin 0.2 (0.0-0.5) mg/dL AST 13 (5-37) U/L ALT 8 (0-40) U/L Alkaline Phosphatase 57 (39-117) U/L Troponin I High Sens 9.6 (<3.5-35.0) ng/L Total Protein 7.0 (6.5-8.0) g/dL Albumin 3.7 (3.5-5.0) g/dL Lipase 8 (8-78) U/L Stool Occult Blood POSITIVE (NEGATIVE) Blood Type O Positive Antibody Screen NEGATIVE Crossmatch See Detail Critical Care Time Critical Care Time Critical Care Time: Yes Total Critical Care Time: 60 Attestation: The patient was critically ill with a high probability of imminent or life-threatening deterioration. I spent greater than 30 minutes of discontinuous time evaluating the patient, delivering critical care at the bedside, discussing evaluating data with consultants. Critical care time does not include time spent performing separately billable procedures or teaching. Time spent performing critical care was 60 minutes. Discharge Plan Discharge Clinical Impression: Anemia, GI (gastrointestinal bleed) Patient Disposition: Admitted As Inpatient Interventions: Admission Worksheet (ED) Last Done: 01/26/24 20:03 Discharge Date/Time: 01/26/24 20:53
[2024-01-26 13:38] LABS: MANUAL DIFF FLAG NO
[2024-01-26 13:39] LABS: Basophils Percent Auto 0.4 % (0-2); Eosinophils Absolute Auto 0.3 X10*3/uL (0.0-0.4); Eosinophils Percent Auto 3.8 % (0-4); Hematocrit 21.8 % (42.0-52.0); Imm Gran Abs Auto 0.03 X10*3/uL (0.00-0.03); Imm Gran Pct Auto 0.4 % (0.0-0.4); Lymphocytes Percent Auto 12.4 % (20-40); Mean Corpuscular HGB Conc 31.7 g/dl (31.0-36.0); Mean Corpuscular Hemoglobin 26.2 pg (27.0-33.0); Mean Corpuscular Volume 82.9 fL (80.0-98.0); Mean Platelet Volume 9.4 fL (9.4-12.4); Monocytes Absolute Auto 1.1 X10*3/uL (0.1-1.2); Monocytes Percent Auto 13.8 % (2-11); Neutrophils Absolute Auto 5.4 x10*3/uL (2.0-8.3); Neutrophils Percent Auto 69.2 % (45-73); Platelet Count 240 X10*3/uL (160-400); Red Blood Count 2.63 X10*6/uL (4.60-5.80); Red Cell Distribution Width 17.1 % (11.0-16.0); White Blood Count 7.8 X10*3/uL (4.8-10.8)
[2024-01-26 13:40] LABS: OBS Int Ctl Valid YES; OBS1 POSITIVE (NEGATIVE)
[2024-01-26 13:43] LABS: Hemoglobin 6.9 g/dl (14.0-18.0)
[2024-01-26 13:59] LABS: Alanine Aminotransferase 8 U/L (0-40); Albumin Level 3.7 g/dL (3.5-5.0); Alkaline Phosphatase 57 U/L (39-117); Anion Gap 12 (12-20); Aspartate Amino Transferase 13 U/L (5-37); Bilirubin Direct 0.2 mg/dL (0.0-0.5); Bilirubin Total 0.4 mg/dL (0.0-1.0); Blood Urea Nitrogen 31 mg/dL (9-16); Calcium 9.7 mg/dL (8.4-10.2); Carbon Dioxide 30 mmol/L (22-29); Chloride 97 mmol/L (96-108); Creatinine Clr Calc Pharmacy 47.1; Estimated Glomerular Filt Rate > 60; Glucose Random 149 mg/dL (60-115); Lipase 8 U/L (8-78); Potassium 4.7 mmol/L (3.3-5.1); Sodium 134 mmol/L (135-145)
[2024-01-26 14:06] LABS: Troponin-I High Sensitivity 9.6 ng/L (<3.5-35.0)
--- NOTE | 2024-01-26 14:33 | PC.NURSE ---
Pt presents to ED from SNF in [place] via EMS. EMS reports that facility called due to low hemoglobin at 6.1, tata the CBC this morning. Pt has hx of anemia, unsure of previous blood transfusions. Pt is Nauruan speaking only, medical billing representative utilized. Pt is confused, oriented to person and place only. Breathing even and unlabored, skin pale.
--- NOTE | 2024-01-26 16:00 | MHC.EDTECH ---
This pct assumed care of Patient at 1500 ,Patient was incontinent of urine ,bed bath given and bedding change ,Patient belongings list done ,call curry within Pt reach .
--- NOTE | 2024-01-26 16:06 | PHA.MEDREC ---
Addendum entered by Esuebio Fulton [facility] 01/26/24 16:34: med rec reviewed Original Note: Pharmacy Consult ? Medication Reconciliation Pharmacy has completed the medication reconciliation. Confirmed medications with list provided by [facility].
--- NOTE | 2024-01-26 16:21 | P.HPHOSP_ITS ---
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 Nursing staff denies any evidence of overt bleeding. Vitals stable at the senior living. Upon arrival, patient is a poor historian, unable to provide history, oriented to self and place only. Since arrival, hemodynamically stable. No leukocytosis. H/H 6.9/21.8%, last 8.8/20 9.1% in 05/2023. Stool occult is positive. Renal function is baseline, electrolyte levels normal except for sodium 134, CO2 30. Glucose 149. Troponin 9.6. In the ED, is being transfused 2 units packed red blood cells. Review of Systems 2 Review of Systems: Yes Unobtainable due to mental status [facility] Medical History Bronchiectasis Insomnia Pulmonary nodule COPD (chronic obstructive pulmonary disease) Chronic heart failure with preserved ejection fraction (HFpEF) Non-pressure chronic ulcer of other part of left foot with necrosis of bone Pressure ulcer of left heel, stage 3 Pleural effusion Acute and chronic respiratory failure with hypercapnia CHF (congestive heart failure) BARBARA (obstructive sleep apnea) Pulmonary hypertension Persistent atrial fibrillation Acute on chronic diastolic (congestive) heart failure COVID-19 CHF exacerbation 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 Father No problems noted. Son No problems noted. Son No problems noted. Son No problems noted. Son No problems noted. Daughter No problems noted. Daughter No problems noted. Daughter No problems noted. Surgical History H/O angioplasty H/O abdominal surgery H/O cataract extraction Hx of BKA Social History Household Members: Other Housing: Assisted Living Facility Housing Other:: [facility] Do you presently have visiting nurse or other home services: No Alcohol intake: former Comment: 1:1 sitter Patient Tobacco Use Status: Never used Tobacco Smoked in Last 30 Days: No Use of substances other than those prescribed or required for medical reasons: No Advance Directives: Yes Advance Directives on File: Yes Advance Directives Date on File: 03/28/20 service: No Current occupational status: retired Meds Allergies Allergy/AdvReac Type Severity Reaction Status Date / Time bee pollen [BEE STINGS] Allergy Severe ANAPHYLAXIS Verified 01/26/24 13:01 doxycycline [DOXYCYCLINE] Allergy Unknown ? ALLERGY Verified 09/28/23 13:30 [employer] Allergy Mild ITCHING Uncoded 09/28/23 13:30 Active Medications: Current Medications Acetaminophen (Acetaminophen 325 Mg Tablet) 650 mg PO Q6H PRN PRN Reason: Pain, Mild (Pain Scale 1-3), fever or headache Atorvastatin Calcium (Atorvastatin Calcium 20 Mg Tablet) 20 mg PO DAILY BREE Calcium Carbonate (Calcium Carbonate 750 Mg Tab.Chew) 750 mg PO Q4H PRN PRN Reason: Heartburn Chlorhexidine Gluconate (Chlorhexidine Gluc Oral Rinse 15 Ml Mouthwash) 15 ml BUCCAL DAILY BREE Docusate Sodium (Docusate Sodium 100 Mg Capsule) 100 mg PO Q12H PRN PRN Reason: Constipation Furosemide (Furosemide 40 Mg Tablet) 40 mg PO Q48H [facility]; Protocol Gabapentin (Gabapentin 100 Mg Capsule) 200 mg PO TID BREE Guaifenesin (Guaifenesin 100 Mg/5 Ml Liquid) ml PO Q6H PRN PRN Reason: Cough Guaifenesin (Guaifenesin La 600 Mg Tab.Er.12h) 600 mg PO Q12H PRN PRN Reason: Congestion Hydralazine HCl (Hydralazine Hcl 50 Mg Tablet) 50 mg PO TID [facility]; Protocol Levalbuterol HCl (Levalbuterol Hcl 1.25 Mg/3 Ml Vial.Neb) 1.25 mg INHALE BID BREE Loratadine (Loratadine 10 Mg Tablet) 10 mg PO DAILY [facility] Magnesium Hydroxide (Milk Of Magnesia 30 Ml Oral.Susp) 30 ml PO DAILY PRN PRN Reason: Constipation Non-Formulary Medication (Carboxymethylcellulose Sodium [Artificial Tears (Cmc)]) 1 drop EYE-BOTH BID PRN PRN Reason: Dry Eyes Non-Formulary Medication (Cholecalciferol (Vitamin D3)) 125 mcg PO QMONTH [facility] Non-Formulary Medication (Ferrous Sulfate) 325 mg PO BID [facility] Omeprazole (Omeprazole 20 Mg Capsule.Dr) 20 mg PO DAILY@1630 [facility] Ondansetron HCl (Ondansetron Odt 4 Mg Tab.Rapdis) 4 mg TRANSLINGU Q6H PRN PRN Reason: Nausea Sodium Chloride (0.9 % Sodium Chloride Flush 3 Ml Syringe) 3 ml IVFLUSH QSHIFT [facility] Home Medications ?Medication ?Instructions ?Recorded ?Confirmed ?Last Taken ?Type ferrous sulfate 325 mg (65 mg 325 mg PO BID 03/28/20 01/26/24 Unknown History iron) tablet melatonin 5 mg tablet 5 mg PO BEDTIME 03/28/20 01/26/24 Unknown History metformin 500 mg tablet 500 mg PO DAILY 03/28/20 01/26/24 Unknown History tamsulosin 0.4 mg capsule 0.4 mg PO DAILY 03/28/20 01/26/24 Unknown History amlodipine 10 mg tablet 10 mg PO DAILY 10/14/21 01/26/24 Unknown History furosemide 40 mg tablet 40 mg PO Q48H 10/14/21 01/26/24 04/20/23 History nebulizers 08/05/22 12/16/22 Unknown History hydralazine 50 mg tablet 50 mg PO TID 12/02/22 01/26/24 Unknown History sertraline 50 mg tablet (Zoloft) 50 mg PO DAILY 12/16/22 01/26/24 Unknown History atorvastatin 20 mg tablet 20 mg PO DAILY 12/29/22 01/26/24 Unknown History docusate sodium 100 mg capsule 100 mg PO Q12H PRN Constipation 12/29/22 01/26/24 Unknown History gabapentin 100 mg capsule 100 mg PO TID 12/29/22 01/26/24 Unknown History guaifenesin 100 mg/5 mL oral 200 mg PO Q6H PRN Cough 12/29/22 01/26/24 Unknown History liquid (Radha-Tussin) loratadine 10 mg tablet 10 mg PO DAILY 12/29/22 01/26/24 Unknown History omeprazole 20 mg capsule,delayed 20 mg PO DAILY@1630 12/29/22 01/26/24 Unknown History release polyethylene glycol 3350 17 gram 17 g PO DAILY PRN Constipation 12/29/22 01/26/24 Unknown History oral powder packet apixaban 5 mg tablet (Eliquis) 5 mg PO BID 04/22/23 01/26/24 Unknown History carboxymethylcellulose sodium 1 % 1 drp ophthalmic (eye) BID PRN Dry 04/22/23 01/26/24 Unknown History eye drops (Artificial Tears Eyes (carboxymethylcellulose)) chlorhexidine gluconate 0.12 % 15 ml buccal DAILY 04/22/23 01/26/24 Unknown History mouthwash cholecalciferol (vitamin D3) 125 125 mcg PO QMONTH 04/22/23 01/26/24 04/16/23 History mcg (5,000 unit) capsule sodium chloride 3 % for 4 ml inhalation BID PRN AFTER 04/22/23 01/26/24 Unknown History nebulization [employer] risperidone 0.25 mg tablet 0.25 mg PO BEDTIME 09/28/23 01/26/24 Unknown History acetaminophen 325 mg tablet 325 mg PO Q6H PRN Pain/ Fever 01/26/24 01/26/24 Unknown History Greater them 100?F guaifenesin 600 mg tablet, 600 mg PO Q12H PRN Congestion 01/26/24 01/26/24 Unknown History extended release 12 hr (Mucinex) ondansetron HCl 4 mg tablet 4 mg PO Q6H PRN Nausea 01/26/24 01/26/24 Unknown History Physical Exam 2 Vital Signs and Narrative: Vital Signs: Last Vital Signs Temp 97.8 F 01/26/24 15:58 Pulse 80 01/26/24 15:58 Resp 20 01/26/24 15:58 BP 150/52 H 01/26/24 15:58 Pulse Ox 99 01/26/24 14:31 O2 Del Method Room Air 01/26/24 14:31 BMI result Body Mass Index 27.4 Constitutional - Awake and Alert, No apparent distress Eyes - PERRLA, EOMI Cardiovascular - S1S2, RRR, No edema Respiratory - Normal lung expansion, Normal respiratory effort, No respiratory distress, CTA bilaterally Gastrointestinal - NT / ND; +BS; No rebound or guarding Extremities - no calf tenderness bilaterally, no swelling Skin - Warm/Dry Neurological - Alert & oriented to self and place, unable to provide history Psychological - Appropriate affect Results Labs 01/26/24 13:32 01/26/24 13:32 Labs: Laboratory Results - last 24 hr 01/26/24 01/26/24 01/26/24 13:30 13:32 13:33 MCV 82.9 MCH 26.2 L MCHC 31.7 RDW 17.1 H Plt Count 240 D MPV 9.4 Immature Gran % (Auto) 0.4 Neut % (Auto) 69.2 Lymph % (Auto) 12.4 L [place] % (Auto) 13.8 H Eos % (Auto) 3.8 Baso % (Auto) 0.4 Lymph # (Auto) 1.0 L [place] # (Auto) 1.1 Eos # (Auto) 0.3 Baso # (Auto) 0.0 Abs Immat Gran (auto) 0.03 Absolute Neuts (auto) 5.4 Absolute Nucleated RBC 0.000 Nucleated RBC % (auto) 0.0 Anion Gap 12 Estim Creat Clear Calc 47.1 Estimated GFR > 60 Random Glucose 149 H Calcium 9.7 Total Bilirubin 0.4 Direct Bilirubin 0.2 AST 13 ALT 8 Alkaline Phosphatase 57 Troponin I High Sens 9.6 Total Protein 7.0 Albumin 3.7 Lipase 8 Stool Occult Blood POSITIVE Blood Type O Positive Antibody Screen NEGATIVE Crossmatch See Detail Assessment and Plan (1) Acute blood loss anemia: Status: Acute (2) Acute GI bleeding: Status: Acute Plan 87-year-old male with pertinent history of essential hypertension, [id number]-[id number] diabetes mellitus, gastroesophageal reflux disease, mood disorder, BPH, congestive heart failure with preserved ejection fraction, 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 Being transfused 2 units packed red blood cells in the ED. Administer 20 mg Lasix in between units -IV PPI -clear liquid diet -hold Eliquis -gastroenterology consult -monitor on telemetry -follow H/H # paroxysmal atrial fibrillation-rate controlled -hold Eliquis due to above not on rate control medications # hypertension -blood pressure is reasonably controlled -continue amlodipine, hydralazine, Lasix # nik-leumuft-ljuxduywd type 2 diabetes -POC glucose, advanced to diabetic diet -Humalog on sliding scale -hold metformin # BPH -Flomax # GERD -IV PPI # heart failure preserved ejection fraction -clinically euvolemic, continue p.o. diuretics except for IV Lasix administration between blood transfusion units # diabetic polyneuropathy -gabapentin # unspecified dementia -mentation baseline, healthcare proxy invoked DVT prophylaxis-compression boots in setting of acute GI bleed Full code per MOLST form Patient requires inpatient stay at least 2 midnights for management of acute blood loss anemia related to acute GI bleed requiring blood transfusion, expert consultation, probable endoscopy and close monitoring of hemodynamics with cardiac monitoring Quality Stroke Does the patient have a stroke diagnosis?: No VTE Prior VTE?: No VTE Risk Level:: Medical - moderate - high VTE Device Contraindication: N/A - Device Ordered VTE Drug Contraindication: Treatment Not Indicated
--- NOTE | 2024-01-26 16:42 | PC.NURSE ---
Late entry: 1 bag of RBCs infusing, RN remained in room for first 15 mins. Pt tolerated infusion well, no transfusion-related reactions. VSS.
--- NOTE | 2024-01-26 16:47 | PC.NURSE ---
Per admitting provider: IV lasix to be given in between blood units
--- NOTE | 2024-01-26 17:01 | MHC.EDTECH ---
JOSUE Wilkerson Said to wait until dinner comes to check blood sugar .
[2024-01-26] MEDS: Furosemide 20 MG/2 ML VIAL IVPUSH (17:35)
[2024-01-26] MEDS: Pantoprazole Sodium 40 MG/10 ML VIAL IVPUSH (17:38)
[2024-01-26 17:55] LABS: INTERNATIONAL NORM RATIO 1.2 (0.9-1.1); Prothrombin Time 14.3 SEC (11.1-13.3)
--- NOTE | 2024-01-26 18:00 | MHC.EDTECH ---
1800 rounding done ,Patient was incontinent ,yefri care given ,Pt was assisted with his fluids ,drank 480 ml fluids .
[2024-01-26 18:17] LABS: Glucose, Whole Blood 124 mg/dL (60-115)
[2024-01-26] MEDS: levalbuterol HCL 1.25 MG/3 ML VIAL.NEB INHALE (19:50)
[2024-01-26] MEDS: hydrALAZINE HCl 50 MG TABLET PO (20:16)
[2024-01-26] MEDS: Melatonin 3 MG TABLET 6 MG PO (20:17)
[2024-01-26] MEDS: Gabapentin 100 MG CAPSULE PO (20:17)
[2024-01-26] MEDS: Ferrous Sulfate 324 MG TABLET.DR PO (20:17)
[2024-01-26 21:11] LABS: Glucose, Whole Blood 130 mg/dL (60-115)
[2024-01-26 21:19] LABS: MANUAL DIFF FLAG NO
[2024-01-26 21:30] LABS: Basophils Percent Auto 0.6 % (0-2); Eosinophils Absolute Auto 0.3 X10*3/uL (0.0-0.4); Eosinophils Percent Auto 4.7 % (0-4); Hemoglobin 8.7 g/dl (14.0-18.0); Imm Gran Abs Auto 0.04 X10*3/uL (0.00-0.03); Imm Gran Pct Auto 0.6 % (0.0-0.4); Lymphocytes Absolute Auto 1.1 X10*3/uL (1.2-4.9); Lymphocytes Percent Auto 15.1 % (20-40); Mean Corpuscular HGB Conc 32.2 g/dl (31.0-36.0); Mean Corpuscular Hemoglobin 26.2 pg (27.0-33.0); Mean Corpuscular Volume 81.3 fL (80.0-98.0); Mean Platelet Volume 9.2 fL (9.4-12.4); Monocytes Absolute Auto 1.1 X10*3/uL (0.1-1.2); Monocytes Percent Auto 14.6 % (2-11); Neutrophils Absolute Auto 4.6 x10*3/uL (2.0-8.3); Neutrophils Percent Auto 64.4 % (45-73); Platelet Count 239 X10*3/uL (160-400); Red Blood Count 3.32 X10*6/uL (4.60-5.80); Red Cell Distribution Width 17.1 % (11.0-16.0); White Blood Count 7.2 X10*3/uL (4.8-10.8)
[2024-01-26] MEDS: risperiDONE 0.25 MG TABLET PO (21:37)
[2024-01-26] MEDS: 0.9 % Sodium Chloride Flush 3 ML SYRINGE IVFLUSH (23:47)
[2024-01-27] VITALS (8 sets, daily range): BP systolic 132–170; BP diastolic 59–85; PULSE 76–88; RESP 17–18; TEMP 36.1–37.3; O2SAT 92–96
--- NOTE | 2024-01-27 05:07 | HO.SKINPHOTO ---
Location: Category: Stage: Length: Width: Depth: cm Location:coccyx Category: Stage:II Length: Width: Depth: cm Location: Category: Stage: Length: Width: Depth: cm Location: Category: Stage: Length: Width: Depth: cm Location: Category: Stage: Length: Width: Depth: cm Location: Category: Stage: Length: Width: Depth: cm
[2024-01-27 06:32] LABS: MANUAL DIFF FLAG NO
[2024-01-27 06:39] LABS: Basophils Percent Auto 0.4 % (0-2); Eosinophils Absolute Auto 0.4 X10*3/uL (0.0-0.4); Eosinophils Percent Auto 5.7 % (0-4); Hemoglobin 8.9 g/dl (14.0-18.0); Imm Gran Abs Auto 0.03 X10*3/uL (0.00-0.03); Imm Gran Pct Auto 0.4 % (0.0-0.4); Lymphocytes Percent Auto 14.1 % (20-40); Mean Corpuscular Hemoglobin 26.5 pg (27.0-33.0); Mean Corpuscular Volume 80.4 fL (80.0-98.0); Mean Platelet Volume 9.7 fL (9.4-12.4); Monocytes Absolute Auto 0.9 X10*3/uL (0.1-1.2); Monocytes Percent Auto 12.6 % (2-11); Neutrophils Absolute Auto 4.6 x10*3/uL (2.0-8.3); Neutrophils Percent Auto 66.8 % (45-73); Platelet Count 237 X10*3/uL (160-400); Red Blood Count 3.36 X10*6/uL (4.60-5.80); Red Cell Distribution Width 17.4 % (11.0-16.0); White Blood Count 6.9 X10*3/uL (4.8-10.8)
[2024-01-27 07:11] LABS: Anion Gap 11 (12-20); Blood Urea Nitrogen 27 mg/dL (9-16); Calcium 9.5 mg/dL (8.4-10.2); Carbon Dioxide 32 mmol/L (22-29); Chloride 97 mmol/L (96-108); Creatinine Clr Calc Pharmacy 54.2; Estimated Glomerular Filt Rate > 60; Glucose Random 116 mg/dL (60-115); Potassium 4.1 mmol/L (3.3-5.1); Sodium 136 mmol/L (135-145)
[2024-01-27] MEDS: levalbuterol HCL 1.25 MG/3 ML VIAL.NEB INHALE ×2 (07:39→19:38)
[2024-01-27 07:52] LABS: Glucose, Whole Blood 110 mg/dL (60-115)
[2024-01-27] MEDS: Pantoprazole Sodium 40 MG/10 ML VIAL IVPUSH ×2 (07:56→16:06)
[2024-01-27] MEDS: 0.9 % Sodium Chloride Flush 3 ML SYRINGE IVFLUSH ×3 (07:56→22:25)
--- OUTSIDE RECORDS SUMMARY | 2024-01-27 08:14 | XMS_ITS | Patient Health Record ---
Author Organization 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) Active confirmed 233954209 VITAL SIGNS Temperature 97.7 degrees Fahrenheit 03/10/2023 Blood pressure diastolic 00 mm Hg 03/10/2023 Height 6 ft 2 in in 03/10/2023 Blood pressure systolic 000 mm Hg 03/10/2023 Weight 173 lbs 03/10/2023 BMI 22.21 kg/m2 03/10/2023 Encounters Encounter Location Date Provider Diagnosis [facility] [address] [place] [id number] 03/10/2023 Riley White Heme + stool R19.5 and Iron deficiency anemia due to chronic blood loss D50.0 [facility] [address] [place] [id number] 03/11/2023 Riley White ASSESSMENTS Encounter Date Diagnosis [...] Insured Coverage Start Date Coverage End Date [facility] [address] Attn Claims BRIAN Olivarez [id number] ROD HANSON Self - patient is the [...]
--- OUTSIDE RECORDS SUMMARY | 2024-01-27 08:14 | XMS_ITS ---
Author Organization [facility] Address [address] [place] [address] Care Team Providers Care Near Eastern Archaeology Lecturer Name Role Phone Elder Erick LIMA Primary Care Provider Riley Peguero [phone] ALLERGIES Allergen (clinical drug ingredient) Drug/Non Drug Allergy documented on EMR Reaction Allergy Type Onset Date Status doxycycline Doxycycline Unknown Drug Allergy Act frantz Bee Sting anaphylaxis Allergy Active bee pollen Bee Pollen anaphylaxis Drug Allergy Act frantz Sardine sardine (uncoded) itching Allergy Ac tive MEDICATIONS Medication SIG (Take, Route, Frequency, Duration) Notes Start Date End Date Status Levalbuterol HCl 1.25 MG/3ML Inhalation for 15 Active Chlorhexidine Gluconate 0.12 % Mouth/Throat for 30 Active Sertraline HCl 50 MG Oral for 30 Active Atorvastatin Calcium 20 MG Oral for 30 Active Gabapentin 300 MG Oral for 30 Active Loratadine 10 MG 1 tablet Orally Once a day for 30 day(s) Active Radha-Tussin 100 MG/5ML 10 mL as needed O rally every 4 hrs Active Tamsulosin HCl 0.4 MG Oral for 7 Active Iron (Ferrous Sulfate) 325 (65 Fe) MG 1 tablet Orally two times a day Active Melatonin 5 MG 1 tablet in the even ing Orally Once a day for 30 day(s) Active Zoloft 50 MG 1 tablet Orally Once a day for 30 day(s) Active Vitamin D3 Active Docusate Sodium 100 MG 1 capsule as need ed Orally Once a day for 30 day(s) Active Omeprazole Magnesium 20 MG 1 tablet 30 m inutes before morning meal Orally Once a day for 30 day(s) Active MiraLax 17 GM/SCOOP 1 scoop mixed with 8 ounces of fluid Orally Once a day for 30 day(s) Active Eliquis 5 MG Oral for 14 Activ e Colchicine 0.6 MG Oral for 7 A ctive Azithromycin 250 MG 1 tablet Oral m,w, f ri for pulmonolgy Active tylenol Active hydrALAZINE HCl 50 MG Oral for 30 Active amLODIPine Besylate 10 MG Oral for 30 Active AeroChamber Plus Tadeo-Vu - for 1 Active Furosemide 40 MG Oral for 30 A ctive metFORMIN HCl 500 MG Oral for 30 [...] Problem Heme + stool (R19.5) Active confirmed 26332256 Problem Iron deficiency anemia due to chronic blood loss (D50.0) Active confirmed 980039572 VITAL SIGNS BMI 22.21 kg/m2 03/10/2023 Blood pressure systolic 000 mm Hg 03/10/20 23 Blood pressure diastolic 00 mm Hg 023 Height 6 ft 2 in in 03/10/2023 Temperature 97.7 degrees Fahrenheit 03/10/20 23 Weight 173 lbs 03/10/2023 Encounters Encounter Location Date Provider Diagnosis [facility] [address] [facility] [address] [place] [address] 03/10/2023 Riley White Heme + stool R19.5 and Iron deficiency anemia due to chronic blood loss D50.0 ASSESSMENTS Encounter Date Diagnosis Assessment Notes Treatment [...] loss (ICD-10 - D50.0) PLAN OF TREATMENT Treatment Notes Assessment Notes Heme + stool You should continue the daily oral Iron and have a blood count once a month. Continue omeprazole. Avoid all aspirin and NSAIDs. Transfuse blood or give Iron infusions as needed. See me as needed. Next Appt Details Follow Up: prn, Reason: Progress Notes * Examination Category Sub-Category Detail Notes General Examination GENERAL APPEARANCE: Pleasant , well nourished, well developed, in no acute distress. He is sitting in a wheelchair. HEAD: EYES: sclera non-icteric EARS: NOSE: THROAT: NECK/THYROID: no cervical lymphade nopathy, neck supple HEART: S1, S2 normal CHEST: LUNGS: clear to auscultatio n bilaterally ABDOMEN: normal bowel sounds, no guarding or rigidity, no guarding or rigidity, no masses palpable, soft, nontender, nondistended NEUROLOGIC: alert SKIN: nonjaundiced, no spi josé miguel angiomata EXTREMITIES: PERIPHERAL PULSES: BACK: BREASTS: MUSCULOSKELETAL: MALE GENITOURINARY: LYMPH NODES: RECTAL EXAM: FEMALE GENITOURINARY: ORAL CAVITY: mucosa moist
--- OUTSIDE RECORDS SUMMARY | 2024-01-27 08:14 | XMS_ITS ---
Author Organization [facility] Address [address] [place] [address] Care Team Providers Care Desizing Machine Operator Head End Name Role Phone Elder Erick LIMA Primary Care Provider Riley Peguero [phone] REASON FOR VISIT REQUESTING OFFICE NOTE Encounters Encounter Location Date Provider Diagnosis [facility] [address] [place] [address] 03/11/2023 Riley White PLAN OF TREATMENT No Information
--- NOTE | 2024-01-27 09:18 | MHC.CM.PN ---
Addendum entered by Anastasia Borges RN 01/27/24 09:34: CM RECEIVED CALL BACK FROM HCP/DTR DENNIS COLLINS UPDATED AND REQUESTING CALL FROM HOSPITALIST, TOMMIE TO NOTIFY HOSPITALIST AND DENNIS VERIFIES DENNIS'S ADDRESS IS [address] [place] [address]. Original Note: IMM 01/27/24, CM ATTMEPTED TO CONTACT PT'S SISTER/ALT HCP DENNIS MOBLEY TO DELIVER IMM, DETAILED MESSAGE LEFT W/REQUEST FOR CALL BACK, PT IS A [facility] RESIDENT AT [facility] AND FOR NOW PLAN IS FOR PT TO RETURN ONCE MEDICALLY CLEARED. PCP/HCP ON FILE.
[2024-01-27] MEDS: Tamsulosin HCL 0.4 MG CAPSULE PO (10:36)
[2024-01-27] MEDS: amLODIPine Besylate 10 MG TABLET PO (10:37)
[2024-01-27] MEDS: Sertraline HCL 50 MG TABLET PO (10:37)
[2024-01-27] MEDS: Ferrous Sulfate 324 MG TABLET.DR PO ×2 (10:37→22:25)
[2024-01-27] MEDS: Gabapentin 100 MG CAPSULE PO ×3 (10:37→22:25)
[2024-01-27] MEDS: Atorvastatin Calcium 20 MG TABLET PO (10:37)
[2024-01-27] MEDS: hydrALAZINE HCl 50 MG TABLET PO ×3 (10:37→22:25)
[2024-01-27] MEDS: Furosemide 40 MG TABLET PO (10:40)
[2024-01-27] MEDS: Loratadine 10 MG TABLET PO (10:41)
[2024-01-27 11:52] LABS: Glucose, Whole Blood 121 mg/dL (60-115)
[2024-01-27] MEDS: Chlorhexidine Gluc Oral Rinse 15 ML MOUTHWASH BUCCAL (12:58)
--- NOTE | 2024-01-27 12:59 | HO.PM.IMPN ---
Subjective Subjective Date of Service: 01/27/24 Interval History: Being followed for anemia. No acute events overnight, denies headache, no chest pain, no palpitations, no nausea, vomiting or abdominal pain, tolerating clear liquid diet. Review of Systems All other system reviewed and are negative. Physical Exam Vital Signs: Vital Signs: Last Vital Signs Temp 97.5 F 01/27/24 11:16 Pulse 88 01/27/24 11:16 Resp 17 01/27/24 11:16 BP 138/85 01/27/24 11:16 Pulse Ox 94 01/27/24 11:16 O2 Del Method Room Air 01/27/24 11:16 BMI result Body Mass Index 27.4 Const: Other: Gen: in no acute distress HEENT: sclera anicteric, moist mucus membranes Neck: supple Lungs: clear to auscultation bilaterally Heart: regular rate and rhythm, no murmurs Abd: soft, non-tender, non-distended Ext: no edema,rt bka Skin:no rash Neuro: alert and oriented x3 Psych: appropriate affect Objective Data Active Medications Acetaminophen (Acetaminophen 325 Mg Tablet) 650 mg PO Q6H PRN PRN Reason: Pain, Mild (Pain Scale 1-3), fever or headache Amlodipine Besylate (Amlodipine Besylate 10 Mg Tablet) 10 mg PO DAILY [facility]; Protocol Last Admin: 01/27/24 10:37 Dose: 10 mg Documented By: LOLA Artificial Tears (Artificial Tears 15 Ml Drops) 1 drop EYE-BOTH BID PRN PRN Reason: Dry Eyes Atorvastatin Calcium (Atorvastatin Calcium 20 Mg Tablet) 20 mg PO DAILY [facility] Last Admin: 01/27/24 10:37 Dose: 20 mg Documented By: LOLA Calcium Carbonate (Calcium Carbonate 750 Mg Tab.Chew) 750 mg PO Q4H PRN PRN Reason: Heartburn Chlorhexidine Gluconate (Chlorhexidine Gluc Oral Rinse 15 Ml Mouthwash) 15 ml BUCCAL DAILY [facility] Docusate Sodium (Docusate Sodium 100 Mg Capsule) 100 mg PO Q12H PRN PRN Reason: Constipation Ferrous Sulfate (Ferrous Sulfate 324 Mg Tablet.Dr) 324 mg PO BID [facility] Last Admin: 01/27/24 10:37 Dose: 324 mg Documented By: LOLA Furosemide (Furosemide 40 Mg Tablet) 40 mg PO Q48H [facility]; Protocol Last Admin: 01/27/24 10:40 Dose: 40 mg Documented By: LOLA Gabapentin (Gabapentin 100 Mg Capsule) 100 mg PO TID [facility] Last Admin: 01/27/24 10:37 Dose: 100 mg Documented By: LOLA Glucose (Glucose Gel 15 Gm Gel..Gram.) 15 gm PO Q15M PRN; Protocol PRN Reason: per Hypoglycemia Standing Ord. Guaifenesin (Guaifenesin 100 Mg/5 Ml Liquid) 10 ml PO Q6H PRN PRN Reason: Cough Guaifenesin (Guaifenesin La 600 Mg Tab.Er.12h) 600 mg PO Q12H PRN PRN Reason: Congestion Hydralazine HCl (Hydralazine Hcl 50 Mg Tablet) 50 mg PO TID [facility]; Protocol Last Admin: 01/27/24 10:37 Dose: 50 mg Documented By: LOLA Dextrose (D10) 250 mls @ 750 mls/hr IV Q15M PRN; Protocol PRN Reason: per Hypoglycemia Standing Ord. Insulin Human Lispro (Insulin Lispro 100 Unit/Ml 3 Ml Vial) 0 unit SUBCUT QIDACHS [facility]; Protocol Last Admin: 01/27/24 12:21 Dose: Not Given Documented By: LOLA Non-Admin Reason: No Insulin Coverage Levalbuterol HCl (Levalbuterol Hcl 1.25 Mg/3 Ml Vial.Neb) 1.25 mg INHALE RBID [facility] Last Admin: 01/27/24 07:39 Dose: 1.25 mg Documented By: RENA Loratadine (Loratadine 10 Mg Tablet) 10 mg PO DAILY [facility] Last Admin: 01/27/24 10:41 Dose: 10 mg Documented By: LOLA Magnesium Hydroxide (Milk Of Magnesia 30 Ml Oral.Susp) 30 ml PO DAILY PRN PRN Reason: Constipation Melatonin (Melatonin 3 Mg Tablet) 6 mg PO BEDTIME [facility] Last Admin: 01/26/24 20:17 Dose: 6 mg Documented By: ALEXY Ondansetron HCl (Ondansetron Odt 4 Mg Tab.Rapdis) 4 mg TRANSLINGU Q6H PRN PRN Reason: Nausea Pantoprazole Sodium (Pantoprazole Sodium 40 Mg/10 Ml Vial) 40 mg IVPUSH BID@0630,1630 [facility] Last Admin: 01/27/24 07:56 Dose: 40 mg Documented By: ABRIL Polyethylene Glycol (Polyethylene Glycol 3350 17 Gm Powd.Pack) 17 gm PO DAILY PRN PRN Reason: Constipation Risperidone (Risperidone 0.25 Mg Tablet) 0.25 mg PO BEDTIME [facility] Last Admin: 01/26/24 21:37 Dose: 0.25 mg Documented By: ROSARIO Sertraline HCl (Sertraline Hcl 50 Mg Tablet) 50 mg PO DAILY [facility] Last Admin: 01/27/24 10:37 Dose: 50 mg Documented By: LOLA Sodium Chloride (0.9 % Sodium Chloride Flush 3 Ml Syringe) 3 ml IVFLUSH QSHIFT [facility] Last Admin: 01/27/24 07:56 Dose: 3 ml Documented By: ABRIL Sodium Chloride (Sodium Chloride 3 % Inhalation 15 Ml Vial.Neb) 4 ml INHALE BID PRN PRN Reason: AFTER [employer] AD[employer]ISTRATION Tamsulosin HCl (Tamsulosin Hcl 0.4 Mg Capsule) 0.4 mg PO DAILY [facility] Last Admin: 01/27/24 10:36 Dose: 0.4 mg Documented By: LOLA Vitamin D (Cholecalciferol (Vitamin D3) 25 Mcg Tablet) 125 mcg PO Q30D [facility] Labs 01/27/24 06:17 01/27/24 06:17 Labs: Laboratory Results - last 24 hr 01/26/24 01/26/24 01/26/24 13:30 13:32 13:33 MCV 82.9 MCH 26.2 L MCHC 31.7 RDW 17.1 H Plt Count 240 D MPV 9.4 Immature Gran % (Auto) 0.4 Neut % (Auto) 69.2 Lymph % (Auto) 12.4 L [place] % (Auto) 13.8 H Eos % (Auto) 3.8 Baso % (Auto) 0.4 Lymph # (Auto) 1.0 L [place] # (Auto) 1.1 Eos # (Auto) 0.3 Baso # (Auto) 0.0 Abs Immat Gran (auto) 0.03 Absolute Neuts (auto) 5.4 Absolute Nucleated RBC 0.000 Nucleated RBC % (auto) 0.0 Smear Path Review SEE NOTE PT INR Anion Gap 12 Estim Creat Clear Calc 47.1 Estimated GFR > 60 POC Glucose Random Glucose 149 H Calcium 9.7 Total Bilirubin 0.4 Direct Bilirubin 0.2 AST 13 ALT 8 Alkaline Phosphatase 57 Troponin I High Sens 9.6 Total Protein 7.0 Albumin 3.7 Lipase 8 Stool Occult Blood POSITIVE Blood Type O Positive Antibody Screen NEGATIVE Crossmatch See Detail 01/26/24 01/26/24 01/26/24 17:38 18:13 21:08 MCV MCH MCHC RDW Plt Count MPV Immature Gran % (Auto) Neut % (Auto) Lymph % (Auto) [place] % (Auto) Eos % (Auto) Baso % (Auto) Lymph # (Auto) [place] # (Auto) Eos # (Auto) Baso # (Auto) Abs Immat Gran (auto) Absolute Neuts (auto) Absolute Nucleated RBC Nucleated RBC % (auto) Smear Path Review PT 14.3 H INR 1.2 H Anion Gap Estim Creat Clear Calc Estimated GFR POC Glucose 124 H 130 H Random Glucose Calcium Total Bilirubin Direct Bilirubin AST ALT Alkaline Phosphatase Troponin I High Sens Total Protein Albumin Lipase Stool Occult Blood Blood Type Antibody Screen Crossmatch 01/26/24 01/27/24 01/27/24 21:13 06:17 07:37 MCV 81.3 80.4 MCH 26.2 L 26.5 L MCHC 32.2 33.0 RDW 17.1 H 17.4 H Plt Count 239 237 MPV 9.2 L 9.7 Immature Gran % (Auto) 0.6 H 0.4 Neut % (Auto) 64.4 66.8 Lymph % (Auto) 15.1 L 14.1 L [place] % (Auto) 14.6 H 12.6 H Eos % (Auto) 4.7 H 5.7 H Baso % (Auto) 0.6 0.4 Lymph # (Auto) 1.1 L 1.0 L [place] # (Auto) 1.1 0.9 Eos # (Auto) 0.3 0.4 Baso # (Auto) 0.0 0.0 Abs Immat Gran (auto) 0.04 H 0.03 Absolute Neuts (auto) 4.6 4.6 Absolute Nucleated RBC 0.000 0.000 Nucleated RBC % (auto) 0.0 0.0 Smear Path Review PT INR Anion Gap 11 L Estim Creat Clear Calc 54.2 Estimated GFR > 60 POC Glucose 110 Random Glucose 116 H Calcium 9.5 Total Bilirubin Direct Bilirubin AST ALT Alkaline Phosphatase Troponin I High Sens Total Protein Albumin Lipase Stool Occult Blood Blood Type Antibody Screen Crossmatch 01/27/24 11:43 MCV MCH MCHC RDW Plt Count MPV Immature Gran % (Auto) Neut % (Auto) Lymph % (Auto) [place] % (Auto) Eos % (Auto) Baso % (Auto) Lymph # (Auto) [place] # (Auto) Eos # (Auto) Baso # (Auto) Abs Immat Gran (auto) Absolute Neuts (auto) Absolute Nucleated RBC Nucleated RBC % (auto) Smear Path Review PT INR Anion Gap Estim Creat Clear Calc Estimated GFR POC Glucose 121 H Random Glucose Calcium Total Bilirubin Direct Bilirubin AST ALT Alkaline Phosphatase Troponin I High Sens Total Protein Albumin Lipase Stool Occult Blood Blood Type Antibody Screen Crossmatch Assessment and Plan (1) GI (gastrointestinal bleed): Status: Acute (2) Anemia: Status: Acute Plan 87-year-old male with pertinent history of essential hypertension, [id number] diabetes mellitus, gastroesophageal reflux disease, mood disorder, BPH, congestive heart failure with preserved ejection fraction, 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 who presents to the emergency department due to anemia admitted for acute blood loss anemia secondary to GIB #Acute blood loss anemia secondary to acute GI bleed -no acute GI bleed noted, stool guaiac positive Received 2 units of packed RBC hematocrit improved from 21.8-27 -cont.IV PPI,clear liquid diet,follow h/h -hold Eliquis -gastroenterology consult # paroxysmal atrial fibrillation-rate controlled -hold Eliquis due to above not on rate control medications # hypertension -blood pressure stable, continue amlodipine, hydralazine, Lasix # [id number] type 2 diabetes -stable bs cont ISS,poc monitoring,hold metformin # BPH -Flomax # GERD -IV PPI # heart failure preserved ejection fraction -clinically euvolemic, continue p.o. diuretics # diabetic polyneuropathy -gabapentin # unspecified dementia -mentation baseline, healthcare proxy invoked DVT prophylaxis-compression boots in setting of acute GI bleed [facility] Patient requires inpatient for management of acute blood loss anemia related to acute GI bleed requiring blood transfusion, expert consultation, probable endoscopy and close monitoring of hemodynamics with cardiac monitoring Quality Stroke Does the patient have a stroke diagnosis?: No VTE Prior VTE?: No VTE Risk Level:: Medical - moderate - high VTE Device Contraindication: N/A - Device Ordered VTE Drug Contraindication: Treatment Not Indicated
[2024-01-27 16:10] LABS: Glucose, Whole Blood 178 mg/dL (60-115)
[2024-01-27] MEDS: Insulin Lispro 100 UNIT/ML 3 ML VIAL SUBCUT (16:53)
--- NOTE | 2024-01-27 19:16 | P.EN_ITS ---
Event Note Date of Service: 01/27/24 Event Note: GI Consult-Full note dictated-D/W patient's HCP, his daughter, Lupe. History from Lupe, his RN, and the EMR. Imp: 88 yo male with multiple comorbidities on chronic Eliquis for A.fib and PVD presenting with recurrent anemia and Heme + stool. There has been no melena nor BRBPR. There have been no reported localizing GI sx. His Hgb has responded appropriately to transfusions. Rec: As I have reviewed with the patient and his family in 2020, 2022, and again today, we are all in agreement that conservative management with avoidance of invasive procedures and anesthesia would be most appropriate for him given his age and comorbidities We did review potential diagnoses of GI neoplasm, AVM's, gastritis, etc. I would recommend advancing his diet, continuing Iron and oral PPI custodial, holding his blood thinner for at least 1 or 2 weeks, and following periodic blood counts as an outpatient. We did agree that if the anemia becomes more problematic with requirement of more frequent transfusions then we can always reassess things in regard to potential GI procedures, although again the family would like to hold off on invasive procedures if at all possible. Please advise if I can be of further assistance. Thanks Time Spent With Patient Time: Total time managing care of this patient today ____ minutes.
[2024-01-27] MEDS: Sodium Chloride 3 % Inhalation 15 ML VIAL.NEB 4 ML INHALE (19:56)
[2024-01-27 20:45] LABS: Glucose, Whole Blood 107 mg/dL (60-115)
[2024-01-27] MEDS: risperiDONE 0.25 MG TABLET PO (22:25)
[2024-01-27] MEDS: Melatonin 3 MG TABLET 6 MG PO (22:25)
[2024-01-27] MEDS: Acetaminophen 325 MG TABLET 650 MG PO (22:32)
--- NOTE | 2024-01-28 02:07 | CONS_ITS ---
DATE OF SERVICE: 01/27/2024 REASON FOR CONSULTATION: Anemia and heme-positive stool. HISTORY OF PRESENT ILLNESS: This has been obtained primarily from his daughter and healthcare proxy, Lupe, as well as from his nurse and the medical record. The patient is an 88-year-old male with multiple comorbidities whom I have met in the past for anemia and heme-positive stool. I last saw him in my office in March 2023. At that time, I had reviewed things in detail with him and his daughter, Lupe, regarding his anemia and heme-positive stool while on his chronic Eliquis. At that point, the decision had been made to hold off any invasive procedures and anesthesia, given his age and multiple medical issues. 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 He has not been back on that for quite some time. In 2020, he was hospitalized for anemia and heme-positive stool. Again, at that time, we also opted to hold off putting him to any GI endoscopic workup due to his age and medical issues. Most recently, he has been at the correction and was found to have a low hemoglobin and was transferred to the ER for treatment. There has been no report of hematochezia nor melena. There has been no vomiting. There have been no reports of any particular localizing GI symptoms. Hemoglobin was 6.9 on admission, but after transfusions, his hemoglobin claudia to 8.7 last evening and 8.9 this morning. He has been tolerating a liquid diet. He has had no evidence of significant bleeding in the hospital. His stool specimen here was brown and heme positive. MEDICATIONS: At the correction included amlodipine, Eliquis, atorvastatin, vitamin D, Colace, iron, furosemide, gabapentin, guaifenesin, hydralazine, levalbuterol nebulizers, loratadine, metformin, omeprazole, ondansetron, MiraLAX, risperidone, sertraline, tamsulosin. PAST MEDICAL HISTORY: Atrial fibrillation, diabetes mellitus, chronic anemia, hypertensive heart disease with heart failure, pneumonia and pleural effusions, neuropathy, sleep apnea, atrial fibrillation, osteomyelitis. He did undergo a negative colonoscopy [place] [address] Solorio. He has had abdominal surgery with a right colectomy. He has had multiple right lower extremity vascular surgeries and procedures prior to a below-knee amputation. Cataracts. COPD, pulmonary hypertension, dilated cardiomyopathy, BPH. Cataract surgery. SOCIAL HISTORY: He presently does not smoke nor use any alcohol. He lives in the correction. FAMILY HISTORY: Noncontributory. PHYSICAL EXAMINATION: GENERAL: The patient is a pleasant, alert, somewhat pale elderly male, but in no distress. SKIN: Warm and dry. HEENT: Anicteric sclerae. ABDOMEN: Soft, nondistended, nontender. LABORATORY DATA: CBC as above. PT 14.3 with INR 1.2. Normal electrolytes. BUN 27, creatinine 0.99. Liver profile within normal limits. Albumin 3.7. Lipase of 8. Stool was brown, but heme-positive. IMPRESSION: The patient is an elderly male with multiple medical problems, presenting with recurrent anemia and brown but heme-positive stool. He is on long-standing Eliquis in relation to his atrial fibrillation and peripheral vascular disease. At the present time, he appears very stable and has responded appropriately to transfusions. He does not have any active localizing GI symptoms and there has been no obvious evidence of gross GI bleeding. At this point, I had a detailed discussion with his daughter, Lupe, by telephone this evening. We again reviewed potential diagnoses of gastrointestinal blood loss including that of gastrointestinal neoplasm, angiodysplasias, and silent upper gastrointestinal problems such as ulcer disease, gastritis, and/or esophagitis. As in the past, she is inclined to proceed conservatively, given his age and multiple medical issues. I advised her that an upper endoscopy and colonoscopy could certainly be performed if need be, but again, his risk for those procedures would be high both with the anesthetic, the procedures, and the bowel prep for the procedure itself. As such, I would be inclined to proceed conservatively as she wishes and hold off on any invasive procedures since things appear to be very stable. 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 Therefore, I would recommend that the help for least a week or two. I will continue his omeprazole and iron long-term and should continue to have periodic blood counts while at the correction. We did review that if these episodes of anemia requiring transfusions become more frequent, we could always reassess the situation in regard to having him undergo gastrointestinal procedures, but again I believe we were all in agreement that it would be best to hold off on that if at all possible. At this point, his diet will be advanced. This has all been discussed with the hospitalist service. This has all been reviewed in detail with his daughter and she is comfortable with that plan as well. Please advise me if I can be of any further assistance during the hospitalization. MD CHEMA Avila/OCHOA / [phone]
[2024-01-28 04:00] VITALS: BP 132/65; PULSE 90; RESP 18; TEMP 36.1; O2SAT 93
[2024-01-28 06:05] LABS: Hematocrit 27.2 % (42.0-52.0); Hemoglobin 8.6 g/dl (14.0-18.0); Mean Corpuscular HGB Conc 31.6 g/dl (31.0-36.0); Mean Corpuscular Hemoglobin 25.7 pg (27.0-33.0); Mean Corpuscular Volume 81.2 fL (80.0-98.0); Mean Platelet Volume 9.3 fL (9.4-12.4); Platelet Count 248 X10*3/uL (160-400); Red Blood Count 3.35 X10*6/uL (4.60-5.80); Red Cell Distribution Width 17.5 % (11.0-16.0); White Blood Count 5.8 X10*3/uL (4.8-10.8)
[2024-01-28] MEDS: Pantoprazole Sodium 40 MG/10 ML VIAL IVPUSH (06:31)
[2024-01-28 07:29] LABS: Glucose, Whole Blood 114 mg/dL (60-115)
[2024-01-28] MEDS: levalbuterol HCL 1.25 MG/3 ML VIAL.NEB INHALE (07:37)
[2024-01-28 07:38] VITALS: PULSE 94; RESP 16; O2SAT 91
[2024-01-28 08:00] VITALS: BP 137/65; PULSE 79; RESP 20; TEMP 36.2; O2SAT 91
[2024-01-28] MEDS: Ferrous Sulfate 324 MG TABLET.DR PO (08:54)
[2024-01-28] MEDS: Chlorhexidine Gluc Oral Rinse 15 ML MOUTHWASH BUCCAL (08:55)
[2024-01-28] MEDS: hydrALAZINE HCl 50 MG TABLET PO (08:55)
[2024-01-28] MEDS: Loratadine 10 MG TABLET PO (08:55)
[2024-01-28] MEDS: Sertraline HCL 50 MG TABLET PO (08:55)
[2024-01-28] MEDS: amLODIPine Besylate 10 MG TABLET PO (08:55)
[2024-01-28] MEDS: 0.9 % Sodium Chloride Flush 3 ML SYRINGE IVFLUSH (08:55)
[2024-01-28] MEDS: Gabapentin 100 MG CAPSULE PO (08:55)
[2024-01-28] MEDS: Atorvastatin Calcium 20 MG TABLET PO (08:55)
[2024-01-28] MEDS: Tamsulosin HCL 0.4 MG CAPSULE PO (08:55)
--- NOTE | 2024-01-28 10:19 | P.DS_ITS ---
DS: Providers Provider Date of Service: 01/28/24 Date of admission: 01/26/24 16:07 Date of discharge: 01/28/24 Primary care physician: Elena Chan MD Consults: 01/26/24 16:43 Consult to Gastroenterology Routine Consulting Provider: Riley White Reason for consultation: acute blood loss anemia, gi bleed DS: Diagnosis Discharge Diagnosis (1) GI (gastrointestinal bleed): Status: Acute (2) Anemia: Status: Acute DS: Summary Hospital Course Hospital Course: History of presenting illness: Date of Service: 01/26/24 Attending physician on admission: Wilberto Araiza Chief Complaint: hgb 6.1 from snf 87-year-old male with pertinent history of essential hypertension, nlt-shdeuly-yjxdtqzzw diabetes mellitus, gastroesophageal reflux disease, mood disorder, BPH, congestive heart failure with preserved ejection fraction, 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 Nursing staff denies any evidence of overt bleeding. Vitals stable at the [facility]. Upon arrival, patient is a poor historian, unable to provide history, oriented to self and place only. Since arrival, hemodynamically stable. No leukocytosis. H/H 6.9/21.8%, last 8.8 9.1% in 05/2023. Stool occult is positive. Renal function is baseline, electrolyte levels normal except for sodium 134, CO2 30. Glucose 149. Troponin 9.6. In the ED, is being transfused 2 units packed red blood cells. 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 who presents to the emergency department due to anemia admitted for acute blood loss anemia secondary to GIB, no overt GI bleed was noted but stool guaiac was positive, treated with 2 units of packed RBC hematocrit improved from 21.8-27 , treated with IV PPI Eliquis was held, patient remained hemodynamically stable evaluated by weight and balance control agent he recommend to hold Eliquis for 1-2 weeks follow CBC, case was discussed with his family and it was decided to continue conservative management with avoidance of invasive procedure and anesthesia likely potential diagnosis of GI neoplasm, AVMs, gastritis etc. will continue iron and oral PPI intermediate, recommend to resume Eliquis after 2 weeks and follow CBC next week. In regard to paroxysmal atrial fibrillation-rate is controlled, resume Eliquis in 2 weeks Hypertension -blood pressure stable, continue amlodipine, hydralazine, Lasix qkz-tyjjdyu-ssaqviidf type 2 diabetes continue home medications stable blood sugars. BPH continue Flomax heart failure preserved ejection fraction continue by mouth diuretics no acute exacerbation noted -clinically euvolemic, continue p.o. diuretics diabetic polyneuropathy -gabapentin unspecified dementia -mentation baseline Time Attestation Discharge Coordination Time (in mins): 38 Quality: Safe Use of Opioids Does Pt have an Active Cancer Diagnosis on the Problem List?: No Quality: Stroke Does the patient have a stroke diagnosis?: No Physical Exam Vital Signs: Vital Signs: Last Vital Signs Temp 97.1 F 01/28/24 08:00 Pulse 79 01/28/24 08:00 Resp 20 01/28/24 08:00 BP 137/65 01/28/24 08:00 Pulse Ox 91 L 01/28/24 08:00 O2 Del Method Room Air 01/28/24 08:00 BMI result Body Mass Index 27.4 Const: Other: Gen: in no acute distress HEENT: sclera anicteric, moist mucus membranes Neck: supple Lungs: clear to auscultation bilaterally Heart: regular rate and rhythm, no murmurs Abd: soft, non-tender, non-distended Ext: no edema,rt bka Skin:no rash Neuro: alert and oriented x3 Psych: appropriate affect DS: Data Data Completed and Pending Completed studies during hospitalization [Text1]: Procedures Assistance with Respiratory Ventilation, Less than 24 Consecutive Hours, Continuous Positive Airway Pressure (01/25/21) Drainage of Right Pleural Cavity, Percutaneous Approach (01/25/21) Insertion of Infusion Device into Left Basilic Vein, Percutaneous Approach (01/25/21) Insertion of Infusion Device into Superior Vena Cava, Percutaneous Approach (12/25/20) Transfusion of Nonautologous Red Blood Cells into Peripheral Vein, Percutaneous Approach (12/25/20) Labs on day of discharge: Laboratory Results - last 24 hr 0801/27/24 01/27/24 13:32 11:43 16:05 WBC RBC Hgb Hct MCV MCH MCHC RDW Plt Count MPV Absolute Nucleated RBC Nucleated RBC % (auto) Smear Path Review SEE NOTE POC Glucose 121 H 178 H 01/27/24 01/28/24 01/28/24 20:27 05:44 07:04 WBC 5.8 RBC 3.35 L Hgb 8.6 L Hct 27.2 L MCV 81.2 MCH 25.7 L MCHC 31.6 RDW 17.5 H Plt Count 248 MPV 9.3 L Absolute Nucleated RBC 0.000 Nucleated RBC % (auto) 0.0 Smear Path Review POC Glucose 107 114 Discharge Plan Discharge Anticipated Discharge Date/Time: 01/28/24 10:16 Patient Disposition: er [facility] Discharge Diagnosis: Acute blood loss anemia Referrals: [facility] [Outside] - 1 Day (RESUMPTION OF PRISON CARE) Elena Chan MD [Primary Care Provider] - 1 Week Discharge Medications: Continued levalbuterol HCl 1.25 mg/3 mL solution for nebulization 1.25 mg inhalation BID 30 Days Qty: 180 0RF Rx Instructions: FOLLOW WITH 3% SODIUM CHLORIDE INHALER SOLUTION metformin 500 mg tablet 500 mg PO DAILY tamsulosin 0.4 mg capsule 0.4 mg PO DAILY ferrous sulfate 325 mg (65 mg iron) tablet 325 mg PO BID melatonin 5 mg tablet 5 mg PO BEDTIME amlodipine 10 mg tablet 10 mg PO DAILY Rx Instructions: hold for BP less than 130/80 Artificial Tears (cmc) 1 % Drops 1 drp OPHTHALMIC (EYE) BID PRN (Reason: Dry Eyes) chlorhexidine gluconate 0.12 % Mouthwash 15 ml BUCCAL DAILY sodium chloride 3 % Solution For Nebulization 4 ml INHALATION BID PRN (Reason: AFTER XOPENEX ADMINISTRATION) cholecalciferol (vitamin D3) 125 mcg (5,000 unit) Capsule 125 mcg PO QMONTH Rx Instructions: TAKE ON THE 9TH OF EVERY MONTH acetaminophen 325 mg Tablet 325 mg PO Q6H PRN (Reason: Pain/ Fever Greater them 100?F) ondansetron HCl 4 mg tablet 4 mg PO Q6H PRN (Reason: Nausea) guaifenesin [Mucinex] 600 mg Tablet Extended Release 12hr 600 mg PO Q12H PRN (Reason: Congestion) polyethylene glycol 3350 17 gram Powder In Packet 17 g PO DAILY PRN (Reason: Constipation) guaifenesin [Radha-Tussin] 100 mg/5 mL Liquid 200 mg PO Q6H PRN (Reason: Cough) docusate sodium 100 mg Capsule 100 mg PO Q12H PRN (Reason: Constipation) gabapentin 100 mg capsule 100 mg PO TID loratadine 10 mg Tablet 10 mg PO DAILY atorvastatin 20 mg tablet 20 mg PO DAILY omeprazole 20 mg capsule,delayed release(DR/EC) 20 mg PO DAILY@1630 Rx Instructions: 30 min before dinner furosemide 40 mg tablet 40 mg PO Q48H Protocol: Hold for SBP< HOLD for SBP < : 100 sertraline [Zoloft] 50 mg tablet 50 mg PO DAILY (DME) nebulizers Misc See Rx Instructions .Route Rx Instructions: As directed risperidone 0.25 mg tablet 0.25 mg PO BEDTIME hydralazine 50 mg tablet 50 mg PO TID Rx Instructions: hold for BP less than 130/80 Held Eliquis 5 mg Tablet 5 mg PO BID Hold Instructions: Resume on 02/09/24. Discharge Orders: Discharge Order (Routine); Ordered 01/28/24 Ordered By: Wilberto Araiza Diet: Advance to usual diet Activity on Discharge: As tolerated Stand Alone Forms: Patient Portal Discharge page Print Language: Kosovan Care Plan Goals: Hold Eliquis and resume on 02/08 Follow CBC in 1 week, return to check with recurrent GI bleed or drop in hematocrit Health Concerns: Continue all home medications as before. Plan of Treatment: Outpatient follow-up with primary care physician Assessment: as above
--- NOTE | 2024-01-28 11:11 | MHC.CM.PN ---
PT MEDICALLY CLEARED FOR DC BACK TO LTC AT [facility], [facility] BOOKING ID #[id number], [facility] FOR TRANSPORT AT 1PM, CM ATTEMPTED TO CONTACT PT'S DTR/HCP [facility] [phone], NO ANSWER AND DETAILED MESSAGE LEFT.
[2024-01-28 11:59] LABS: Glucose, Whole Blood 165 mg/dL (60-115)
[2024-01-28 12:00] VITALS: BP 129/59; PULSE 73; RESP 18; TEMP 36.2; O2SAT 93
[2024-01-28] MEDS: Insulin Lispro 100 UNIT/ML 3 ML VIAL SUBCUT (12:01)
== END 2024-01-28 13:30 | DRG 378 ==
LOC: HO.ED 13:31 → HO.EDOVER 16:28 → HO.IMC 19:25
PROVIDERS: Admitting Provider Physician Assistant; Emergency Provider Emergency Medicine; PCP Internal Medicine; Visit Provider Hospitalist
DX: K92.2 Gastrointestinal hemorrhage, unspecified (principal); D62 Acute posthemorrhagic anemia; I50.32 Chronic diastolic (congestive) heart failure; E11.51 Type 2 diabetes mellitus with diabetic peripheral angiopathy without gangrene; J47.9 Bronchiectasis, uncomplicated; E11.42 Type 2 diabetes mellitus with diabetic polyneuropathy; K21.9 Gastro-esophageal reflux disease without esophagitis; F03.90 Unspecified dementia, unspecified severity, without behavioral disturbance, psychotic disturbance, mood disturbance, and anxiety; I48.0 Paroxysmal atrial fibrillation; Z89.511 Acquired absence of right leg below knee; G47.33 Obstructive sleep apnea (adult) (pediatric); Z79.01 Long term (current) use of anticoagulants; Z79.84 Long term (current) use of oral hypoglycemic drugs; Z79.899 Other long term (current) drug therapy
CPT/HCPCS: 36415; 80048; 80076; 82272; 82947; 83690; 84484; 85025; 85027; 85610; 86850; 86900; 86901; 86923; 93005; 94640; 99285; J1940; J2470; P9016

== ENCOUNTER → 2024-01-26 16:07 | Outpatient (BNV) | payer OTHER, SELFPAY | PROVIDERS: Admitting Provider Physician Assistant; Emergency Provider Emergency Medicine; PCP Internal Medicine; Visit Provider Physician Assistant | DX: K92.2 Gastrointestinal hemorrhage, unspecified (principal); D62 Acute posthemorrhagic anemia | CPT/HCPCS: 99223; 99233; 99239 ==

== ENCOUNTER 2024-03-19 03:47 | Emergency (ER) | payer OTHER, SELFPAY ==
--- NOTE | 2024-03-19 | ECG_ITS ---
Test Reason : CHEST PAIN Blood Pressure : / mmHG Vent. Rate : 077 BPM Atrial Rate : 000 BPM P-R Int : 000 ms QRS Dur : 094 ms QT Int : 406 ms P-R-T Axes : 000 055 061 degrees QTc Int : 459 ms Atrial fibrillation Incomplete right bundle branch block Abnormal ECG When compared with ECG of 26-JAN-2024 13:34, Nonspecific T wave abnormality now evident in Inferior leads Referred By: Generic ED Physician Electronically Signed By:MARLA BARTH MD
--- NOTE | ~2024-03-19 | XR_ITS ---
EXAMINATION: XR CHEST 1 VIEW CLINICAL INFORMATION: cp COMPARISON: May 10, 2023 TECHNIQUE: Single portable frontal view. Tubes and lines: None Lungs and pleura: Linear opacity left upper lobe probably subsegmental atelectasis or scar, unchanged from prior exam. Heart and mediastinum: Heart and mediastinum are widely exaggerated by AP technique unchanged.. Bones/soft tissue: Skeletal structures included are normal for patient's age. XR/XR chest 1V IMPRESSION: 1. No radiographic evidence of acute cardiopulmonary disease. 2. Linear opacity left upper lobe probably subsegmental atelectasis or scar. Electronically signed by: Seth Lewis MD 03/19/2024 07:59 AM EDT RP
[2024-03-19 03:55] VITALS: BP 147/54; BP 163/67; PULSE 82; PULSE 84; RESP 14; TEMP 36.4; O2SAT 95; O2SAT 96; BMI 23.7
--- NOTE | 2024-03-19 04:00 | ED_ITS ---
HPI - Chest Pain General Chief Complaint: Chest Pain Stated Complaint: CHEST PAIN Time Seen by Provider: 03/19/24 04:00 Source: patient and EMS Mode of arrival: EMS Limitations: no limitations History of Present Illness ED Provider: sbe MORENO narrative: Patient 88 years old from skilled nursing with history of atrial fibrillation on Eliquis chronic heart failure with preserved ejection fraction, COPD right BKA, hypertension diabetes, peripheral arterial disease comes here for left-sided chest pain started about 1.5 hours before was given aspirin by EMS chest pain is sharp pounding reproducible Related Data Home Medications ?Medication ?Instructions ?Recorded ?Confirmed ferrous sulfate 325 mg (65 mg 325 mg PO BID 03/28/20 01/26/24 iron) tablet melatonin 5 mg tablet 5 mg PO BEDTIME 03/28/20 01/26/24 metformin 500 mg tablet 500 mg PO DAILY 03/28/20 01/26/24 tamsulosin 0.4 mg capsule 0.4 mg PO DAILY 03/28/20 01/26/24 amlodipine 10 mg tablet 10 mg PO DAILY 10/14/21 01/26/24 furosemide 40 mg tablet 40 mg PO Q48H 10/14/21 01/26/24 nebulizers 08/05/22 12/16/22 hydralazine 50 mg tablet 50 mg PO TID 12/02/22 01/26/24 sertraline 50 mg tablet (Zoloft) 50 mg PO DAILY 12/16/22 01/26/24 atorvastatin 20 mg tablet 20 mg PO DAILY 12/29/22 01/26/24 docusate sodium 100 mg capsule 100 mg PO Q12H PRN Constipation 12/29/22 01/26/24 gabapentin 100 mg capsule 100 mg PO TID 12/29/22 01/26/24 guaifenesin 100 mg/5 mL oral 200 mg PO Q6H PRN Cough 12/29/22 01/26/24 liquid (Radha-Tussin) loratadine 10 mg tablet 10 mg PO DAILY 12/29/22 01/26/24 omeprazole 20 mg capsule,delayed 20 mg PO DAILY@1630 12/29/22 01/26/24 release polyethylene glycol 3350 17 gram 17 g PO DAILY PRN Constipation 12/29/22 01/26/24 oral powder packet apixaban 5 mg tablet (Eliquis) 5 mg PO BID 04/22/23 01/26/24 carboxymethylcellulose sodium 1 % 1 drp ophthalmic (eye) BID PRN Dry 04/22/23 01/26/24 eye drops (Artificial Tears Eyes (carboxymethylcellulose)) chlorhexidine gluconate 0.12 % 15 ml buccal DAILY 04/22/23 01/26/24 mouthwash cholecalciferol (vitamin D3) 125 125 mcg PO QMONTH 04/22/23 01/26/24 mcg (5,000 unit) capsule sodium chloride 3 % for 4 ml inhalation BID PRN AFTER 04/22/23 01/26/24 nebulization XOPENEX ADMINISTRATION risperidone 0.25 mg tablet 0.25 mg PO BEDTIME 09/28/23 01/26/24 acetaminophen 325 mg tablet 325 mg PO Q6H PRN Pain/ Fever 01/26/24 01/26/24 Greater them 100?F guaifenesin 600 mg tablet, 600 mg PO Q12H PRN Congestion 01/26/24 01/26/24 extended release 12 hr (Mucinex) ondansetron HCl 4 mg tablet 4 mg PO Q6H PRN Nausea 01/26/24 01/26/24 Previous Rx's ?Medication ?Instructions ?Recorded levalbuterol HCl 1.25 mg/3 mL 1.25 mg (3 mL) inhalation BID 30 02/10/23 solution for nebulization days #180 mL Allergies Allergy/AdvReac Type Severity Reaction Status Date / Time bee pollen [BEE STINGS] Allergy Severe ANAPHYLAXIS Verified 03/19/24 04:01 doxycycline [DOXYCYCLINE] Allergy Unknown ? ALLERGY Verified 03/19/24 04:01 PER TRAINING FACILITATOR [place]ARD[place]ES Allergy Mild ITCHING Uncoded 03/19/24 04:01 Review of Systems 2 Review of Systems: Yes all other systems are reviewed and are negative PMFSH Past Medical History Medical History Dementia Bronchiectasis Insomnia Pulmonary nodule COPD (chronic obstructive pulmonary disease) Chronic heart failure with preserved ejection fraction (HFpEF) Non-pressure chronic ulcer of other part of left foot with necrosis of bone Pressure ulcer of left heel, stage 3 Pleural effusion Acute and chronic respiratory failure with hypercapnia CHF (congestive heart failure) BARBARA (obstructive sleep apnea) Pulmonary hypertension Persistent atrial fibrillation Acute on chronic diastolic (congestive) heart failure COVID-19 CHF exacerbation 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 Father No problems noted. Son No problems noted. Son No problems noted. Son No problems noted. Son No problems noted. Daughter No problems noted. Daughter No problems noted. Daughter No problems noted. Social History Social History Household Members: None Housing: Apartment Housing Other:: [facility] Do you presently have visiting nurse or other home services: No Alcohol intake: former Comment: 1:1 sitter Patient Tobacco Use Status: Never used Tobacco Smoked in Last 30 Days: No Use of substances other than those prescribed or required for medical reasons: No Advance Directives: Yes Advance Directives on File: Yes Advance Directives Date on File: 03/28/20 service: No Current occupational status: retired Physical Exam 2 Vital Signs: Vital Signs: Last Vital Signs Temp 97.9 F 03/19/24 07:07 Pulse 70 03/19/24 07:07 Resp 12 03/19/24 07:07 BP 146/68 H 03/19/24 07:07 Pulse Ox 96 03/19/24 07:07 O2 Del Method Room Air 03/19/24 07:07 Oxygen Flow Rate 2 03/19/24 03:55 BMI result Body Mass Index 23.7 Appearance: Alert. Oriented X3. No acute distress. Eyes: PERRLA, No Nystagmus ENT: Pharynx normal. Oral Mucosa moist Neck: Normal inspection. Neck supple. CVS: Normal heart rate and rhythm. Pulses normal. No murmur/rubs/gallop reproducible left chest pain Respiratory: No respiratory distress. Equal air entry bilateral, no wheezing/rales/rhonchi Abdomen: Soft and nontender. Bowel sounds are present, no mass palpable, no CVA tenderness Skin: Skin warm and dry. Normal skin color. Normal skin turgor. Extremities: No lower extremity edema. No calf tenderness right BKA Neuro: Oriented X 3. No motor deficit. No sensory deficit.No cerebellar signs , cranial nerves II-XII intact Medications Administered Discontinued Medications Generic Name Dose Route Start Last Admin Trade Name Josephq PRN Reason Stop Dose Admin Nitroglycerin 0.5 inch 03/19/24 06:09 03/19/24 06:17 Nitroglycerin 2 % Oint 1 Gm Packet TRANSDERMA 03/19/24 06:10 0.5 inch ONCE ONE Administration Medical Decision Making Medical Decision Making [facility] Narrative: Patient has atypical chest pain with atrial fibrillation 2 sets of cardiac enzymes negative patient is pain-free in the ER will discharge patient to skilled nursing Differential Diagnosis Differential Diagnoses: The differential diagnosis associated with the presentation includes Lab Data [facility] Lab Attestation statement: I reviewed the patient's lab results. 03/19/24 04:01 03/19/24 04:01 Labs: Lab Results 03/19/24 03/19/24 03/19/24 Range/Units 04:01 06:03 06:20 WBC 7.6 (4.8-10.8) X10*3/uL RBC 2.98 L (4.60-5.80) X10*6/uL Hgb 7.8 L (14.0-18.0) g/dl Hct 25.3 L (42.0-52.0) % MCV 84.9 (80.0-98.0) fL MCH 26.2 L (27.0-33.0) pg MCHC 30.8 L (31.0-36.0) g/dl RDW 18.9 H (11.0-16.0) % Plt Count 241 (160-400) X10*3/uL MPV 9.2 L (9.4-12.4) fL Immature Gran % (Auto) 0.5 H (0.0-0.4) % Neut % (Auto) 66.0 (45-73) % Lymph % (Auto) 15.7 L (20-40) % [place] % (Auto) 12.0 H (2-11) % Eos % (Auto) 5.3 H (0-4) % Baso % (Auto) 0.5 (0-2) % Lymph # (Auto) 1.2 (1.2-4.9) X10*3/uL [place] # (Auto) 0.9 (0.1-1.2) X10*3/uL Eos # (Auto) 0.4 (0.0-0.4) X10*3/uL Baso # (Auto) 0.0 (0.0-0.2) X10*3/uL Abs Immat Gran (auto) 0.04 H (0.00-0.03) X10*3/uL Absolute Neuts (auto) 5.0 (2.0-8.3) x10*3/uL Absolute Nucleated RBC 0.000 (0.0-0.012) X10*3/uL Nucleated RBC % (auto) 0.0 (0.0-0.2) /100WBC Sodium 140 (135-145) mmol/L Potassium 4.3 (3.3-5.1) mmol/L Chloride 99 (96-108) mmol/L Carbon Dioxide 32 H (22-29) mmol/L Anion Gap 13 (12-20) BUN 25 H (9-16) mg/dL Creatinine 1.05 (0.5-1.4) mg/dL Estim Creat Clear Calc 57.6 Estimated GFR > 60 Random Glucose 118 H (60-115) mg/dL Calcium 9.2 (8.4-10.2) mg/dL Total Bilirubin 0.6 (0.0-1.0) mg/dL AST 12 (5-37) U/L ALT 10 (0-40) U/L Alkaline Phosphatase 65 (39-117) U/L Troponin I High Sens 11.3 11.3 (<3.5-35.0) ng/L B-Natriuretic Peptide 152 H (<100) pg/mL Total Protein 6.8 (6.5-8.0) g/dL Albumin 3.5 (3.5-5.0) g/dL Influenza Type A (PCR) NEGATIVE (Negative) Influenza Type B (PCR) NEGATIVE (Negative) RSV RNA Qual (PCR) NEGATIVE (Negative) SARS-CoV-2 RNA (RT-PCR) NEGATIVE (Negative) Independent Interpretation I performed an independent interpretation of an: EKG Interpretation: Atrial fibrillation with heart rate 77 beats per minute incomplete right bundle- branch block no acute ST-T changes no acute ischemia Discharge Plan Discharge Clinical Impression: Chest pain, Atrial fibrillation Patient Disposition: er [facility] Transfer Details: Workup for acute coronary event was negative patient does have atrial fibrillation may be the cause for chest pain Instructions: A-fib (Atrial Fibrillation) (ED), Chest Pain (DC) Additional Instructions: Continue medications as prescribed by your contract administration specialist Follow with your PCP Prescriptions: No Action levalbuterol HCl 1.25 mg/3 mL solution for nebulization 1.25 mg inhalation BID 30 Days Qty: 180 0RF Rx Instructions: FOLLOW WITH 3% SODIUM CHLORIDE INHALER SOLUTION metformin 500 mg tablet 500 mg PO DAILY tamsulosin 0.4 mg capsule 0.4 mg PO DAILY ferrous sulfate 325 mg (65 mg iron) tablet 325 mg PO BID melatonin 5 mg tablet 5 mg PO BEDTIME amlodipine 10 mg tablet 10 mg PO DAILY Rx Instructions: hold for BP less than 130/80 Artificial Tears (cmc) 1 % Drops 1 drp OPHTHALMIC (EYE) BID PRN (Reason: Dry Eyes) chlorhexidine gluconate 0.12 % Mouthwash 15 ml BUCCAL DAILY Eliquis 5 mg Tablet 5 mg PO BID sodium chloride 3 % Solution For Nebulization 4 ml INHALATION BID PRN (Reason: AFTER XOPENEX ADMINISTRATION) cholecalciferol (vitamin D3) 125 mcg (5,000 unit) Capsule 125 mcg PO QMONTH Rx Instructions: TAKE ON THE 9TH OF EVERY MONTH acetaminophen 325 mg Tablet 325 mg PO Q6H PRN (Reason: Pain/ Fever Greater them 100?F) ondansetron HCl 4 mg tablet 4 mg PO Q6H PRN (Reason: Nausea) guaifenesin [Mucinex] 600 mg Tablet Extended Release 12hr 600 mg PO Q12H PRN (Reason: Congestion) polyethylene glycol 3350 17 gram Powder In Packet 17 g PO DAILY PRN (Reason: Constipation) guaifenesin [Radha-Tussin] 100 mg/5 mL Liquid 200 mg PO Q6H PRN (Reason: Cough) docusate sodium 100 mg Capsule 100 mg PO Q12H PRN (Reason: Constipation) gabapentin 100 mg capsule 100 mg PO TID loratadine 10 mg Tablet 10 mg PO DAILY atorvastatin 20 mg tablet 20 mg PO DAILY omeprazole 20 mg capsule,delayed release(DR/EC) 20 mg PO DAILY@1630 Rx Instructions: 30 min before dinner furosemide 40 mg tablet 40 mg PO Q48H Protocol: Hold for SBP< HOLD for SBP < : 100 sertraline [Zoloft] 50 mg tablet 50 mg PO DAILY (DME) nebulizers Misc See Rx Instructions .Route Rx Instructions: As directed risperidone 0.25 mg tablet 0.25 mg PO BEDTIME hydralazine 50 mg tablet 50 mg PO TID Rx Instructions: hold for BP less than 130/80 Print Language: Cameroonian
[2024-03-19 04:05] LABS: Basophils Percent Auto 0.5 % (0-2); Eosinophils Absolute Auto 0.4 X10*3/uL (0.0-0.4); Eosinophils Percent Auto 5.3 % (0-4); Hematocrit 25.3 % (42.0-52.0); Hemoglobin 7.8 g/dl (14.0-18.0); Imm Gran Abs Auto 0.04 X10*3/uL (0.00-0.03); Imm Gran Pct Auto 0.5 % (0.0-0.4); Lymphocytes Absolute Auto 1.2 X10*3/uL (1.2-4.9); Lymphocytes Percent Auto 15.7 % (20-40); MANUAL DIFF FLAG NO; Mean Corpuscular HGB Conc 30.8 g/dl (31.0-36.0); Mean Corpuscular Hemoglobin 26.2 pg (27.0-33.0); Mean Corpuscular Volume 84.9 fL (80.0-98.0); Mean Platelet Volume 9.2 fL (9.4-12.4); Monocytes Absolute Auto 0.9 X10*3/uL (0.1-1.2); Platelet Count 241 X10*3/uL (160-400); Red Blood Count 2.98 X10*6/uL (4.60-5.80); Red Cell Distribution Width 18.9 % (11.0-16.0); White Blood Count 7.6 X10*3/uL (4.8-10.8)
[2024-03-19 04:08] VITALS: PULSE 89
[2024-03-19 04:21] LABS: Alanine Aminotransferase 10 U/L (0-40); Albumin Level 3.5 g/dL (3.5-5.0); Alkaline Phosphatase 65 U/L (39-117); Anion Gap 13 (12-20); Aspartate Amino Transferase 12 U/L (5-37); Bilirubin Total 0.6 mg/dL (0.0-1.0); Blood Urea Nitrogen 25 mg/dL (9-16); Calcium 9.2 mg/dL (8.4-10.2); Carbon Dioxide 32 mmol/L (22-29); Chloride 99 mmol/L (96-108); Creatinine Clr Calc Pharmacy 57.6; Estimated Glomerular Filt Rate > 60; Glucose Random 118 mg/dL (60-115); Potassium 4.3 mmol/L (3.3-5.1); Sodium 140 mmol/L (135-145); Total Protein 6.8 g/dL (6.5-8.0)
[2024-03-19 04:25] LABS: Troponin-I High Sensitivity 11.3 ng/L (<3.5-35.0)
--- OUTSIDE RECORDS SUMMARY | 2024-03-19 04:28 | XMS_ITS ---
Author Organization [facility] Address [address] [place] [address] Care Team Providers Care Java Sdet Name Role Phone Elder Erick ILMA Primary Care Provider Riley Peguero [phone] REASON FOR VISIT REQUESTING OFFICE NOTE Encounters Encounter Location Date Provider Diagnosis [facility] [address] [place] [address] 03/11/2023 Riley White PLAN OF TREATMENT No Information
--- OUTSIDE RECORDS SUMMARY | 2024-03-19 04:28 | XMS_ITS ---
Author Organization [facility] Address [address] [place] [address] Care Team Providers Care Insurance Sales Producer Name Role Phone Elder Erick LIMA Primary Care Provider Riley Peguero [phone] ALLERGIES Allergen (clinical drug ingredient) Drug/Non Drug [...] Problem Heme + stool (R19.5) Active confirmed [id number] Problem Iron deficiency anemia due to chronic blood loss (D50.0) Active confirmed [id number] VITAL SIGNS BMI 22.21 kg/m2 03/10/2023 Blood pressure systolic 000 mm Hg 03/10/20 23 Blood pressure diastolic 00 mm Hg 023 Height 6 ft 2 in in 03/10/2023 Temperature 97.7 degrees Fahrenheit 03/10/20 23 Weight 173 lbs 03/10/2023 Encounters Encounter Location Date Provider Diagnosis [facility] [address] [place] [address] 03/10/2023 Riley White Heme + stool R19.5 [...]
--- OUTSIDE RECORDS SUMMARY | 2024-03-19 04:28 | XMS_ITS | Patient Health Record ---
Author Organization [facility] Address [address] [place] [address] Care Team Providers Care Equal Opportunity Assistant Name Role Phone Elder Erick LIMA Primary Care Provider Riley Peguero Unavailable [phone] ALLERGIES Allergen (clinical drug ingredient) Drug/Non Drug [...] Problem Heme + stool (R19.5) Active confirmed [id number] Problem Iron deficiency anemia due to chronic blood loss (D50.0) Active confirmed [id number] PLAN OF TREATMENT No Information Insurance Providers Payer Name Payer Address Payer Phone Subscriber Number Group Number Insured Name Patient Relationship to Insured Coverage Start Date Coverage End Date [facility] [address] Attn Claims [place] [id number] GREGORIA Dillon ROD Self - patient is the insured MEDICAL [...]
[2024-03-19 06:17] VITALS: BP 150/61; PULSE 72
[2024-03-19] MEDS: Nitroglycerin 2 % Oint 1 GM Packet 0.5 INCH TRANSDERMA (06:17)
[2024-03-19 06:28] LABS: Troponin-I High Sensitivity 11.3 ng/L (<3.5-35.0)
[2024-03-19 06:36] LABS: B Type Natriuretic Peptide 152 pg/mL (<100)
[2024-03-19 06:59] LABS: Influenza A PCR NEGATIVE (Negative); Influenza B PCR NEGATIVE (Negative); Resp Syncy Virus RNA Qual PCR NEGATIVE (Negative); SARS COV2 PCR INHOUSE NEGATIVE (Negative)
[2024-03-19 07:07] VITALS: BP 146/68; PULSE 70; RESP 12; TEMP 36.6; O2SAT 96
[2024-03-19 07:39] VITALS: BP 129/65; PULSE 65; RESP 16; O2SAT 97
--- NOTE | 2024-03-19 07:41 | PC.NURSE ---
resting quietly. states he still has CP left sided and radiating to left arm. is aware that test results are negative. NSR on monitor. pt is able to follow commands but unable to state pain scale. oriented to person/place
--- NOTE | 2024-03-19 07:53 | PC.NURSE ---
brief removed, perineal cleansing for urine. repositioned. awaits Transport back to [facility]. Has BKA on left. good skin integrity overall.
--- NOTE | 2024-03-19 08:15 | PC.NURSE ---
Update to daughter on phone.
--- NOTE | 2024-03-19 09:06 | PC.NURSE ---
bedside report to EMS
[2024-03-19 09:24] VITALS: BP 129/65; PULSE 65; RESP 16; TEMP 36.3; O2SAT 97
--- NOTE | 2024-03-19 09:28 | PC.NURSE ---
Rn to RN with Marti Cruz. At [facility].
== END 2024-03-19 09:26 | disposition skilled nursing facility (03) ==
PROVIDERS: Emergency Provider Internal Medicine; PCP Internal Medicine
DX: R07.89 Other chest pain (principal); I48.91 Unspecified atrial fibrillation; E11.9 Type 2 diabetes mellitus without complications; I10 Essential (primary) hypertension; E78.5 Hyperlipidemia, unspecified; Z79.01 Long term (current) use of anticoagulants; Z79.02 Long term (current) use of antithrombotics/antiplatelets; Z79.899 Other long term (current) drug therapy; Z03.818 Encounter for observation for suspected exposure to other biological agents ruled out
CPT/HCPCS: 0241U; 36415; 71045; 80053; 83880; 84484; 85025; 93005; 99283; 99285

== ENCOUNTER → 2024-03-19 03:50 | Outpatient (BNV) | payer OTHER, SELFPAY | PROVIDERS: Emergency Provider Internal Medicine; PCP Internal Medicine; Visit Provider Internal Medicine Cardiovascular Disease | DX: R94.31 Abnormal electrocardiogram [ECG] [EKG] (principal) | CPT/HCPCS: 93010 ==

== ENCOUNTER 2024-03-28 13:57 | Outpatient (AMB) | payer OTHER, SELFPAY ==
--- NOTE | 2024-03-28 14:03 | A.OFFVIS_ITS ---
Vital Signs 03/28/24 14:05 Height 6 ft 2 in Weight 180 lb BMI 23.1 BP 128/70 Blood Pressure Location Lt brachial Position Sitting Pulse 72 Pulse Source Pulse Oximeter Pulse Oximetry (%) 95 Oxygen Delivery Method Room Air Intake Visit Reasons: Pulmonary Nodules Dictaphone Technician Required: No Allergies bee pollen [BEE STINGS] Allergy (Severe, Verified 03/28/24 14:03) ANAPHYLAXIS doxycycline [DOXYCYCLINE] Allergy (Unknown, Verified 03/28/24 14:03) ? ALLERGY PER [employer] [place] Allergy (Mild, Uncoded 03/28/24 14:03) ITCHING HPI Comments Details: The patient is an 88-year-old history of congestive heart failure pneumonia and pulmonary nodules. Apparently the patient had a repeat CT scan of the chest to follow up some pulmonary nodules and other abnormalities was noted to have a 9- 10 mm pulmonary nodule in the right hemithorax. Although the smaller pulmonary nodules noted. I did personally review the CT scan demonstrating also some bronchitis and bronchiectatic changes as well as some scarring. The pulmonary nodule in the right hemithorax measured about a cm. I did go back and review with previous CT scans. The CT scan that had back in 2020 it was difficult to assess in view of his significant airspace disease and pleural effusions. Subsequently after that will back to a CT scan from 2019 and the pulmonary nodule measures about 9 mm in size which is slightly smaller. Will go ahead and repeat the CT scan in 6 months. In the meantime the patient does have evidence of bronchiectasis so therefore will request a CPT device with an Acapella valve that he can work for mucus clearance. His major complaint all today is that the fact that he can not sleep. I did review his medications. He is on gabapentin at nighttime. Is not a reasonable to increase the gabapentin to 600 mg at nighttime to make sure that he is getting adequate sleep. Otherwise consider alternative agents. Patient denies any choking when he eats. Denies any significant coughing. In view of the difficulty sleeping though will go ahead and request an overnight oximetry to make sure that he is getting adequate oxygenation at nighttime. 02/02/2023 the patient is here for hospital follow-up visit. The patient has had multiple exacerbations of his breathing. He ended up back in the hospital a week ago. Worsening cough overall. He does have a lot of phlegm in difficult for him to expectorate. We did review his last CT scan of the chest that was done back in December 2022 and we did compared to his CT scan from June 2022. His pulmonary nodules appear to be stable. However, does have significant bronchiectasis and now with a new area of ground-glass or haziness in the upper lungs O. his daughter is with him. She is concerned about his swallowing aspiration risk. He was told that he has pretty poor dentition and he was supposed to have his teeth extracted but never did. She explained to her that yes. Potential micro aspirations can result in his chronic picture. Therefore will start him on azithromycin to help him with promotility effects and anti- inflammatory effects from the bronchiectasis. We were able to do a sputum culture sent for both AFB and also Gram staining culture sent to the laboratory. In the office we did perform a nebulized treatment with Xopenex and hypertonic saline and then we were able to expectorate. I talked to the patient also the daughter that using chest PT with nebulizer therapy and Acapella valve or flutter valve will be helpful in mucus clearance. If the culture shows I a resistant organism that requires a different antibiotic we will decide at that point. In the meantime will start him on azithromycin in order to provide with anti-inflammatory effects and also provide him with promotility Function. Chlorhexidine also be helpful to maintain a sterile mouth and avoid microaspiration with bacteria into the lungs. Explained to the daughter and the patient that and it different circumstances bronchoscopy will be helpful for mucus clearing and also for deep cultures to assess exactly what the potential bacteria organism is that is affecting his lungs. Still this procedures need anesthesia and any anesthesia in his case would be high risk and therefore needs to be careful and avoid risk of procedures the possible. 03/30/2023 the patient is here for a pulmonary follow-up visit. He is here with his daughter. Overall he is doing better. Denies any significant coughing or chest congestion. He is continue the therapy as prescribed. Will try to deescalate therapy at this time. Does complaint of allergy symptoms. Having itchy eyes. He is currently on Claritin. His daughter will get him some [id number] allergy drops at this time. He has been on the nebulized therapy with the hypertonic saline for bronchopulmonary hygiene. Also tolerating the chlorhexidine. He is going to have some dental procedures coming up soon. At this point will go ahead and stop the azithromycin since he seems to be doing okay. However, if his symptoms worsen upon discontinuation of the medication then we can always consider restarting the medication. If he does continue the azithromycin he will need serial EKGs to make sure that his QT interval stay within normal limits. 09/28/2023 the patient is here for a pulmonary follow-up visit. The patient has been complaining of about a week of sore throat in addition to chest congestion and sinus pressure. The patient has been having increasing mucus production. Moderate severity. He also did have a CT scan of the chest done which we personally reviewed. It appears that he still has some areas of haziness suggesting some degree of pneumonitis. In addition to that the pulmonary nodules appear to be stable. His largest nodule measuring 8 mm in size. At this point the nodule is stable and therefore we will have him return in the fall and I can talk to the patient and also the daughter to see if additional CT scans are warranted. He continues on the chlorhexidine mouthwash. This is helping his microaspiration and was infection which is reassuring. 03/28/2024 the patient is here for a pulmonary follow-up visit. Since we last spoke he did go to the hospital with chest discomfort. He did have a cardiac evaluation and also a chest x-ray that demonstrated an increased cardiac size. Otherwise no acute disease. He does have a cough which is productive in nature. Also to note he did go to [facility] because of anemia. Although his hemoglobin which is above the threshold so he did not receive a blood transfusion. Denies any active bleeding that he has noted. His cough is congested does difficult for him to expectorate. He is currently getting antibiotics already for UTI and also for a skin infection. Therefore, no additional antibiotics are required. I did provide him an aerobic up. This is a fluttering device that he can use to help him with mucus clearance to help him with the bronchiectasis. He should also continue with the chlorhexidine mouthwash because he has risk of micro aspirations and recurrent infections. 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 Father No problems noted. Son No problems noted. Son No problems noted. Son No problems noted. Son No problems noted. Daughter No problems noted. Daughter No problems noted. Daughter No problems noted. Social History Household Members: None Housing: Apartment [facility] Do you presently have visiting nurse or other home services: No Alcohol intake: former Comment: 1:1 sitter Patient Tobacco Use Status: Never used Tobacco Advance Directives Date on File: 03/28/20 service: No Current occupational status: retired Review of Systems Const Denies chills, Reports daytime sleepiness, Reports difficulty sleeping, Denies fatigue, Denies fever(s), Denies frequent falls, Denies poor appetite, Denies snoring, Denies stops breathing during sleep, Denies weakness, Denies weight gain and Denies weight loss Eyes Denies loss of vision ENT Denies dizziness and Denies hearing loss Card Denies chest pain, Denies claudication, Denies leg edema, Denies lightheadedness, Denies palpitations, Denies dyspnea, Denies dyspnea on exertion, Denies orthopnea and Denies other (Loss of consciousness) Resp Reports change in phlegm color, Reports chest congestion, Reports cough, Denies excessive phlegm production, Denies dyspnea, Denies dyspnea on exertion, Denies snoring and Denies wheezing GI Denies abdominal pain, Denies hematochezia, Denies change in bowel habits, Denies nausea and Denies vomiting Denies dysuria and Denies urinary frequency Musc Denies arthralgias, Denies muscle weakness and Denies numbness Skin/Breast Denies nail changes and Denies rash Neuro Denies Abnormal speech present, Denies dizziness, Denies frequent falls, Denies loss of vision, Denies memory loss, Denies numbness and Denies weakness Psych Denies depression and Denies memory loss Endo Denies fatigue and Denies palpitations Miguel/Lymph Denies easy bruising and Denies other (Anemia) Aller/Immun Denies wheezing Physical Exam Vital Signs: Last Vital Signs Pulse 72 03/28/24 14:05 BP 128/70 03/28/24 14:05 Pulse Ox 95 03/28/24 14:05 Oxygen Delivery Method Room Air 03/28/24 14:05 BMI result Body Mass Index 23.1 Const General: comfortable and no acute distress Orientation/consciousness: patient oriented x3 HEENT Other: Unremarkable Head: Yes normal to inspection and Yes normocephalic Neck Neck: Yes normal visual inspection Chest Chest palpation & inspection: normal inspection of the chest Resp Effort & Inspection: normal respiratory effort and Actively coughing Quality: productive Auscultation: no rhonchi and diminished lung sounds Cardio Rate: regular rate Heart sounds: S1 normal heart sound present and S2 normal heart sound present GI Palpation (GI): Soft to palpation Back/Spine/Pelvis Other: unremarkable Skin General skin exam: no rashes or lesions noted Neuro General: patient oriented x3 Speech: No Abnormal speech present Extrem Other: Right below-knee amputation. General: Yes no clubbing, cyanosis or edema Right lower extremity: knee (amputation) Psych Mental Status: mental status grossly normal Assessment & Plan Assessment & Plan (1) Pulmonary nodule: Code(s): R91.1 - Solitary pulmonary nodule Category: Medical (2) COPD (chronic obstructive pulmonary disease): Code(s): J44.9 - Chronic obstructive pulmonary disease, unspecified Category: Medical Qualifiers: COPD type: chronic bronchitis Chronic bronchitis type: mixed simple and mucopurulent Qualified Code(s): J41.8 - Mixed simple and mucopurulent chronic bronchitis (3) Chronic heart failure with preserved ejection fraction (HFpEF): Code(s): I50.32 - Chronic diastolic (congestive) heart failure Category: Medical (4) Bronchiectasis: Code(s): J47.9 - Bronchiectasis, uncomplicated Category: Medical Qualifiers: Bronchiectasis type: uncomplicated Qualified Code(s): J47.9 - Bronchiectasis, uncomplicated Plan Continue nebs xopenex followed by 3% hypertonic saline CPT with acapella valve after nebs BID Continue Chlorhexadine MW start Aerobika TID, provided for patient CT chest stable, will discuss next visit if additional imaging is warranted F/U 4-6 months Coding Level of Care Code Est Pt Level 4 (97011) Complex EM visit Add On G2211 Diagnoses Pulmonary nodule R91.1 Mixed simple and mucopurulent chronic bronchitis J41.8 COPD type: chronic bronchitis Chronic bronchitis type: mixed simple and mucopurulent Chronic heart failure with preserved ejection fraction (HFpEF) I50.32 Bronchiectasis without complication J47.9 Bronchiectasis type: uncomplicated Time Spent (min) 17
[2024-03-28 14:05] VITALS: BP 128/70; PULSE 72; O2SAT 95; BMI 23.1
== END 2024-03-28 14:28 | disposition home or self-care (01) ==
PROVIDERS: PCP Internal Medicine; Visit Provider Hospitalist
DX: R91.1 Solitary pulmonary nodule (principal); J41.8 Mixed simple and mucopurulent chronic bronchitis; I50.32 Chronic diastolic (congestive) heart failure; J47.9 Bronchiectasis, uncomplicated
CPT/HCPCS: 99214; G2211

== ENCOUNTER → 2024-03-28 13:57 | Outpatient (BNVA) | payer OTHER, SELFPAY | PROVIDERS: PCP Internal Medicine; Visit Provider Hospitalist | DX: J47.9 Bronchiectasis, uncomplicated (principal); J41.8 Mixed simple and mucopurulent chronic bronchitis; R91.1 Solitary pulmonary nodule; I50.32 Chronic diastolic (congestive) heart failure | CPT/HCPCS: 99212 ==